=== PATIENT | male | born 1955 | race Caucasian/White ===

== ENCOUNTER 2017-03-30 16:20 | Inpatient (IN) | payer MEDICAID, OTHER ==
[~2017-03-30] VITALS: Ht 167.6 cm; Wt 48.0 kg
[2017-03-30] MEDS ORDERED: HYDROmorphONE 1 MG/ML SYG IV STA (16:59)
[2017-03-30] MEDS ORDERED: ONDANSETRON 4 MG INJ IV STA (16:59)
[2017-03-30] MEDS ORDERED: SOD CHLORIDE 0.9% 1,000 ML IV STA (16:59)
[2017-03-30] MEDS ORDERED: ESCI10TA PO (17:07)
--- NOTE | 2017-03-30 17:33 | RADRPT ---
PROCEDURE: XR Chest. CLINICAL INDICATION: Pain TECHNIQUE: Single frontal chest x-ray. COMPARISON: None. FINDINGS: No acute infiltrate, pleural effusion or pneumothorax is identified. Cardiomediastinal silhouette i s within normal limits. The osseous structures are unremarkable. IMPRESSION: 1. No evidence of acute cardiopulmonary process. RPTAT: QQ .Yony Serrano MD, MD Date Time Electronically viewed and signed by .Yony Serrano MD, on 03/30/2017 17:32 .R/
[2017-03-30 17:36] LABS: ADD SCAN DIFF NO
[2017-03-30 17:38] LABS: ABNORMAL IP MESSAGE 1; HEMATOCRIT 29.6 % (42.0-52.0); HEMOGLOBIN 9.7 g/dl (14.0-18.0); MEAN CORPUSCULAR HGB CONC 32.8 g/dl (32.0-37.0); MEAN CORPUSCULAR VOLUME 88.6 fl (82.0-101.0); MEAN PLATELET VOLUME 9.1 fl (7.4-10.4); PLATELET COUNT 710 10^3/UL (140-415); RED BLOOD COUNT 3.34 10^6/ul (4.70-6.10); RED CELL DISTRIBUTION WIDTH 17.7 % (11.5-14.5)
[2017-03-30 17:55] LABS: INR 1.6; PROTIME 19.2 Sec (12.2-14.2); PT RATIO 1.5
[2017-03-30 18:06] LABS: ALBUMIN 2.7 g/dl (3.3-4.9); ALBUMIN/GLOBULIN RATIO 0.45; ANION GAP 15 (8-16); ASPARTATE AMINO TRANSFERASE 157 IU/L (15-46); BILIRUBIN,INDIRECT 1.2 mg/dl (0-1.1); BILIRUBIN,TOTAL 4.8 mg/dl (0.2-1.3); CARBON DIOXIDE 25 mmol/L (21-31); CHLORIDE 97 mmol/L (97-110); CREATININE 0.74 mg/dl (0.61-1.24); POTASSIUM 4.2 mmol/L (3.5-5.1); SODIUM 133 mmol/L (135-144); TOTAL PROTEIN 8.6 g/dl (6.1-8.1)
[2017-03-30 18:06] LABS: LACTIC ACID 0.9 mmol/L (0.5-2.2)
[2017-03-30 18:08] LABS: ALANINE AMINOTRANSFERASE 137 IU/L (13-69); BLOOD UREA NITROGEN 21 mg/dl (7-20); CALCIUM 9.1 mg/dl (8.4-10.2); GLUCOSE 111 mg/dl (70-220)
[2017-03-30 18:17] LABS: ALKALINE PHOSPHATASE 1569 IU/L (42-121)
[2017-03-30 18:20] LABS: TROPONIN-I < 0.012 ng/ml (0.00-0.12)
[2017-03-30 18:21] LABS: BASOPHIL # 0.2 10^3/ul (0.0-0.1); EOSINOPHILS # 0.4 10^3/ul (0.0-0.5); LYMPHOCYTES # 2.7 10^3/ul (0.8-2.9); MONOCYTE # 2.1 10^3/ul (0.3-0.9); NEUTROPHIL # 15.6 10^3/ul (1.6-7.5); PLATELET ESTIMATE PLT APPEAR INCREASED
[2017-03-30] MEDS ORDERED: CEFTRIAXONE 1 GM/50 ML (PMX) 50 ML IVPB ONE (18:30)
--- NOTE | 2017-03-30 18:45 | ERA ---
ER Documentation Chief Complaint Date/Time DATE: 03/30/17 TIME: 18:39 Chief Complaint FEVER, GENERALIZED WEAKNESS , LOSS OF APPETITE , ABD PAIN H/O CA LIVER HPI 61-year-old man brought in by friend for recent increasing weight loss, anorexia , generalized weakness, intermittent fevers, complaints of severe abdominal pain despite opioid analgesic use. Patient has a long history of primary sclerosing cholangitis and possibly hepatic carcinoma and is status post jejunostomy and jejunal pouch surgery. He states he has had increasing jaundice , denies blood per rectum or melena, no cough, no chest pain or shortness of breath. Patient lives alone. ROS All systems reviewed and are negative except as per history of present illness. Medications Home Meds Reported Medications Escitalopram Oxalate* (Lexapro*) 10 Mg Tablet, 10 MG PO DAILY, #30 TAB 03/30/17 Allergies Allergies: Coded Allergies: No Known Allergy (Unverified , 03/30/17) PMhx/Soc PSC, previous biliary stents and removal, possible hepatic carcinoma, depression FmHx Family History: No diabetes Physical Exam Vitals Vital Signs Date Time Temp Pulse Resp B/P Pulse Ox O2 Delivery O2 Flow Rate FiO2 03/30/17 17:42 60 21 94/66 94 Room Air 03/30/17 17:29 Nasal Cannula 2 03/30/17 16:22 97.9 70 18 91/56 99 Physical Exam GENERAL: Well-developed elderly man, appears dehydrated, afebrile HEENT: Dry mucous membranes, pale conjunctiva, positive jaundice and icterus, no goiter NEURO: Alert and oriented 3, cranial nerves II through XII intact bilaterally, pupils equal round reactive to light, no focal deficits or facial asymmetry, CARDIAC: Bradycardic and regular, no murmurs rubs or gallops LUNGS: Clear bilaterally no wheezing crackles or stridor ABDOMEN: Mild to moderate tenderness to the abdomen diffusely without guarding or rigidity SKIN: Warm and dry to touch, no abrasions, contusions, positive skin tenting EXTREMITIES: No clubbing cyanosis or edema, calves are bilaterally symmetrical, no Homans sign, no popliteal cord sign. Distal pulses equal and bilateral PSYCH: Depressed affect Result Diagram: 03/30/17 1720 03/30/17 1720 Results 24 hrs Laboratory Tests Test 03/30/17 17:00 03/30/17 17:20 Lactic Acid Level 0.9mmol/L Ammonia 11umol/l White Blood Count 21.110^3/ul Red Blood Count 3.3410^6/ul Hemoglobin 9.7g/dl Hematocrit 29.6% Mean Corpuscular Volume 88.6fl Mean Corpuscular Hemoglobin 29.0pg Mean Corpuscular Hemoglobin Concent 32.8g/dl Red Cell Distribution Width 17.7% Platelet Count 95826^3/UL Mean Platelet Volume 9.1fl Neutrophils % 74.0% Lymphocytes % 13.0% Monocytes % 10.0% Eosinophils % 2.0% Basophils % 1.0% Neutrophils # 15.610^3/ul Lymphocytes # 2.710^3/ul Monocytes # 2.110^3/ul Eosinophils # 0.410^3/ul Basophils # 0.210^3/ul Platelet Estimate PLT APPEAR INCREASED Prothrombin Time 19.2Sec Prothrombin Time Ratio 1.5 INR International Normalized Ratio 1.60 Sodium Level 133mmol/L Potassium Level 4.2mmol/L Chloride Level 97mmol/L Carbon Dioxide Level 25mmol/L Anion Gap 15 Blood Urea Nitrogen 21mg/dl Creatinine 0.74mg/dl Glucose Level 111mg/dl Calcium Level 9.1mg/dl Total Bilirubin 4.8mg/dl Direct Bilirubin 3.60mg/dl Indirect Bilirubin 1.2mg/dl Aspartate Amino Transf (AST/SGOT) 157IU/L Alanine Aminotransferase (ALT/SGPT) 137IU/L Alkaline Phosphatase 1569IU/L Troponin I < 0.012ng/ml Total Protein 8.6g/dl Albumin 2.7g/dl Globulin 5.90g/dl Albumin/Globulin Ratio 0.45 Lipase 68U/L Current Medications Medications (Trade) Dose Ordered Sig/Erin Route PRN Reason Start Time Stop Time Status Last Admin Dose Admin Sodium Chloride (NS) 1,000 ml @ 2,000 mls/hr Q30M STAT IV 03/30/17 16:59 03/30/17 17:28 DC 03/30/17 17:25 Hydromorphone HCl (Dilaudid) 1 mg ONCE STAT IV 03/30/17 16:59 03/30/17 17:08 DC 03/30/17 17:24 Ondansetron HCl 4 mg 4 mg ONCE STAT IV 03/30/17 16:59 03/30/17 17:08 DC 03/30/17 17:24 Ceftriaxone Sodium (Rocephin) 50 ml @ 100 mls/hr ONCE ONCE IVPB 03/30/17 18:30 03/30/17 18:59 DC 03/30/17 18:58 Procedures/MDM IV line was established patient was placed on science manager rhythm strip revealed a sinus bradycardia at about 60 bpm. Patient was afebrile and dehydrated. I administered 2 L normal saline intravenously, hydromorphone 1 mg IV for pain and Zofran 4 mg IV. EKG performed, read by me: Sinus bradycardia 59 bpm, normal axis, no acute ST segment changes, narrow QRS complex, with good R-wave progression in precordial leads. One AP view of the chest performed, read by me reveals no acute infiltrates, normal mediastinum, sharp costophrenic and cardiac borders, no air under the diaphragm. Otherwise unremarkable chest x-ray. CBC revealed a leukocytosis of 21 and anemia with a hematocrit of 30, electrolytes revealed dehydration with a BUN/creatinine of 21/0.7, liver function tests were all abnormal (elevated) with an alkaline phosphatase about 1600, INR elevated at 1.6, troponin was negative For continued hypotension I administered 2 more liters of normal saline for a total of 4 L, patient also received ceftriaxone 1 g IV. Critical Care: Time: 37 minutes, this was time separate from other procedures. Treatments/Evaluations: Close monitoring and treatment of unstable vital signs, cardiorespiratory, and neurologic status, while maintaining tight balance of fluid, respiratory, and cardiac interventions. CT scan of the abdomen and pelvis was performed revealing multiple postsurgical changes and biliary duct dilatation. Please refer to radiologist dictation for full report. Patient will be admitted to telemetry setting for continued medical management and GI consultation and further imaging. Hospitalist has been contacted and he will pursue further consultations and imaging Departure Diagnosis: Primary Impression: Primary sclerosing cholangitis Additional Impressions: Weight loss Dehydration Leukocytosis Qualified Code: D72.820 - Lymphocytosis Transaminitis Hyponatremia Intractable pain Hypotension Qualified Code: I95.9 - Hypotension, unspecified hypotension type Condition: Serious TERRY LORENZ MD March 30, 2017 18:45
--- NOTE | 2017-03-30 19:16 | RADRPT ---
PROCEDURE: CT Abdomen and Pelvis without contrast. CLINICAL INDICATION: Abdominal pelvic pain. Primary sclerosing cholangitis. Previous jejunal abdullahi ch construction surgery. Previous biliary stent placement removal. TECHNIQUE: CT scan of the abdomen and pelvis without contrast was performed on a multidetector hig h-resolution CT scanner. The patient was scanned without intravenous contrast. Coronal and sagittal reformatted images were obtained from the axial source images. Images were reviewed on a high-resol [employer] PACS workstation. The total exam CTDI equals 4.67 mGy and the total exam DLP equals 241.78 mGy -cm. Study is limited due to lack of oral and IV contrast. One or more of the following dose reduction techniques were used: - Automated exposure control. - Adjustment of the mA and/or kV according to patient size. - Use of iterative reconstruction technique. COMPARISON: None. FINDINGS: CT abdomen: The lung bases are clear. The heart size is normal, without pericardial thickening or effusion. Th e liver is normal in size and density with abnormal infiltration in the central mid liver resulting in significant intrahepatic biliary dilatation. An obstructive mass lesion including not limited to cholangiocarcinoma should be considered. Further evaluation with MRI is advised with contrast for more complete assessment. The spleen is normal in size and homogeneous in density. The stomach is partially collapsed, but is grossly unremarkable. The pancreas as visualized is normal. The gallbladder is surgically absent. Numerous surgical clips are seen scattered around the right upper quadrant of the abdomen. biliary tree are unremarkable and there is no evidence for biliary dilatation. The adrenal glands are symm etric and normal. The kidneys are symmetrically unremarkable as well. No renal calculus or obstruc tive uropathy or mass lesion is seen. The aorta is of normal caliber. Aortic vascular calcifications are present. There is no retroperit ricardo lymphadenopathy. The randi hepatis region is clear. The bowel and mesentery, as visualized, are limited in evaluation due to lack of oral and IV contrast. Surgical microstaple line is seen inv olving a loop of bowel in the right anterior mid abdomen. CT pelvis: The small bowel loops situated within the pelvis are unremarkable. The pelvic organs are remarkable for enlargement of the prostate gland. The pelvic sidewalls and inguinal regions are clear. The s igmoid colon and rectum are remarkable for a surgical microstaple line of the lower colon with exten sive postsurgical changes. No mass or adenopathy is seen. No free fluid is present. No acute inflam mation is identified at this time. The surrounding osseous structures are remarkable for degenerative spondylosis of the spine. No ost eolytic or osteoblastic lesion is detected. IMPRESSION: 1. Extensive postsurgical changes involving the bowel loops throughout the abdominal pelvic cavity including the right upper quadrant small bowel, and the distal sigmoid colon and rectum. 2. Significant intrahepatic biliary dilatation with increased density in the central periportal reg ion of the liver. Underlying infiltrative mass lesion should be considered. Further evaluation wit h liver MRI with contrast is recommended for more complete assessment. 3. Scattered benign chronic changes seen elsewhere throughout the study, as detailed above. Results discussed with Dr. Pang in the ER at 7:13 p.m. on 03/30/2017. RPTAT: HMJB .Jelani Yang MD, Date Time Electronically viewed and signed by .Jelani Yang MD, on 03/30/2017 19:15 .B/
[2017-03-30] MEDS ORDERED: ACETAMINOPHEN 325 MG TAB PO PRN (19:30)
[2017-03-30] MEDS ORDERED: DOCUSATE SODIUM 100 MG CAP PO PRN (19:30)
[2017-03-30] MEDS ORDERED: NACL 0.9% 3 ML SYG IV SCH (19:30)
[2017-03-30] MEDS ORDERED: ONDANSETRON 4 MG INJ IV PRN (19:30)
[2017-03-30] MEDS ORDERED: NA PHOSPHATE/BIPHOS 133 ML ENEMA PR PRN (19:30)
[2017-03-30] MEDS ORDERED: morphine 2 MG INJ IV PRN (19:30)
[2017-03-30] MEDS ORDERED: LORAZEPAM 2 MG INJ IV PRN (19:30)
[2017-03-30] MEDS ORDERED: hydrALAzine 20 MG INJ IV PRN (19:30)
[2017-03-30] MEDS ORDERED: HYDROCODONE/APAP (5/325) TAB PO PRN (19:30)
[2017-03-30] MEDS ORDERED: ALBUTEROL/IPRATROPIUM (NEB) 3 ML AMP HHN PRN (19:30)
[2017-03-30] MEDS ORDERED: NITROGLYCERIN (SL) 0.4 MG TAB SL PRN (19:30)
[2017-03-30] MEDS ORDERED: SOD CHLORIDE 0.9% 1,000 ML IV ONE (19:30)
[2017-03-30] MEDS ORDERED: MAGNESIUM HYDROXIDE 30ML CUP PO PRN (19:30)
[2017-03-30] MEDS ORDERED: VANCOMYCIN IV PER PHARMACY XX SCH (19:30)
[2017-03-30 20:58] VITALS: BP 95/55; RESP 18
[2017-03-30 21:57] VITALS: Ht 167.6 cm; Wt 48.0 kg
[2017-03-30] MEDS: SOD CHLORIDE 0.9% 1,000 ML IV SCH (21:57)
[2017-03-30] MEDS ORDERED: VANCOMYCIN 1 GM in NS 250 ML IVPB SCH (22:00)
[2017-03-31] MEDS: PIPER-TAZO 3.375 GM IV (PMX) 100 ML IVPB SCH ×4 (00:44→18:18)
[2017-03-31] MEDS: PANTOPRAZOLE 40 MG INJ IV SCH (06:23)
[2017-03-31] MEDS: SOD CHLORIDE 0.9% 1,000 ML IV SCH ×3 (06:24→22:16)
[2017-03-31 06:41] LABS: THYROID STIMULATING HORMONE 0.674 MIU/L (0.465-4.680)
[2017-03-31 07:20] LABS: ADD SCAN DIFF NO
[2017-03-31 07:22] LABS: ABNORMAL IP MESSAGE 1; HEMATOCRIT 27.9 % (42.0-52.0); HEMOGLOBIN 9.2 g/dl (14.0-18.0); MEAN CORPUSCULAR HEMOGLOBIN 29.5 pg (29.0-33.0); MEAN CORPUSCULAR VOLUME 89.4 fl (82.0-101.0); MEAN PLATELET VOLUME 9.1 fl (7.4-10.4); PLATELET COUNT 745 10^3/UL (140-415); RED BLOOD COUNT 3.12 10^6/ul (4.70-6.10); RED CELL DISTRIBUTION WIDTH 17.7 % (11.5-14.5); WHITE BLOOD COUNT 20.7 10^3/ul (4.8-10.8)
[2017-03-31 07:28] LABS: POTASSIUM 3.6 mmol/L (3.5-5.1)
[2017-03-31 07:31] LABS: CREATININE 0.64 mg/dl (0.61-1.24)
[2017-03-31 07:32] LABS: CALCIUM 8.5 mg/dl (8.4-10.2); MAGNESIUM 1.9 mg/dl (1.7-2.5); PHOSPHORUS 3.8 mg/dl (2.5-4.9)
[2017-03-31] MEDS: ESCITALOPRAM 10 MG TAB PO SCH (09:23)
--- NOTE | 2017-03-31 09:55 | HP ---
Date/Time of Note Date/Time of Note DATE: 03/31/17 TIME: 09:32 Assessment/Plan VTE Prophylaxis VTE Prophylaxis Intervention: SCD's Lines/Catheters IV Catheter Type (from [facility]): Peripheral IV Urinary Cath still in place: No Assessment/Plan Assessment/Plan IMPRESSION 1. Debility 2. Hx of PSC s/p surgery 3. Hx of stage IV Lymphoma 4. Liver mass 5. Abnormal LFTs 6. Leukocytosis 7. Anemia, likely 2/2 chronic disease 8. Jaundice PLAN - Obtain abd MRI to further eval liver mass seen on CT - Pain mgmt - dietary consult - physical therapy - empiric abx. will f/u culture results - Day time team to consult Heme/Onc and also GI given biliary dilatation is jaundice - monitor h/h and transfuse as needed. will check iron panel and ferritin. HPI/ROS Admit Date/Time Admit Date/Time March 30, 2017 at 18:53 Hx of Present Illness Patient is a 61 yo male with hx of PSC, stage IV lymphoma who presented to ER c/ o generalized weakness, weight loss, decreased appetite and pain. He has had abd surgery jejunostomy and jejunal pouch surgery at outside hospital. He was discharged with home health and said currently he lives with his ex-. He was really emotional when talking about his symptoms saying that sometimes he wishes he never wakes up from his sleep at all. His main concern is lack of energy and pain. When he presented to ER, CTa/p showed Extensive postsurgical changes involving the bowel loops throughout the abdominal pelvic cavity including the right upper quadrant small bowel, and the distal sigmoid colon and rectum. Significant intrahepatic biliary dilatation with increased density in the central periportal region of the liver. Per radiology, underlying infiltrative mass lesion should be considered. . PMH/Family/Social Social History Smoking Status: Never smoker Exam/Review of Systems Vital Signs Vitals Vital Signs Date Time Temp Pulse Resp B/P Pulse Ox O2 Delivery O2 Flow Rate FiO2 03/30/17 20:58 97.4 65 18 95/55 99 03/30/17 17:42 Room Air 03/30/17 17:29 2 Intake and Output 03/30/17 03/30/17 03/31/17 15:00 23:00 07:00 Intake Total 1000 ml 350 ml Balance 1000 ml 350 ml Exam Constitutional: other (weak and frail appearing. Jaundiced) Head: atraumatic, normocephalic Eyes: icteric Respiratory: clear to auscultation Cardiovascular: nl pulses, regular rate and rhythm Gastrointestinal: other (right sided surgical scar with no sign of infection), soft, tender Skin: other (jaundiced) Labs Result Diagram: 03/31/17 0500 03/31/17 0500 Medications Medications Current Medications Ondansetron HCl (Zofran Inj) 4 mg Q6H PRN IV NAUSEA AND/OR VOMITING; Start at 19:30 Acetaminophen (Tylenol Tab) 650 mg Q6H PRN PO PAIN LEVEL 1-3 OR FEVER; Start at 19:30 Acetaminophen/ Hydrocodone Bitart ([place] (5/325)) 1 tab Q6H PRN PO MODERATE PAIN LEVEL 4-6; Start 03/30/17 at 19:30 Morphine Sulfate (morphine) 2 mg Q4H PRN IV SEVERE PAIN LEVEL 7-10 Last administered on 03/31/17 09:24; Admin Dose 2 MG; Start 03/30/17 at 19:30 Docusate Sodium (Colace) 100 mg Q12H PRN PO CONSTIPATION; Start 03/30/17 at 19: 30 Magnesium Hydroxide (Milk Of Mag) 30 ml DAILY PRN PO CONSTIPATION; Start at 19:30 Sodium Biphosphate/ Sodium Phosphate (Fleet Enema) 133 ml DAILY PRN PA CONSTIPATION; Start 03/30/17 at 19:30 Pantoprazole (Protonix Iv) 40 mg DAILY@06 IV Last administered on 03/31/17 06: 23; Admin Dose 40 MG; Start 03/31/17 at 06:00 Lorazepam 0.5 mg 0.5 mg Q6H PRN IV ANXIETY; Start 03/30/17 at 19:30 Sodium Chloride 1,000 ml @ 100 mls/hr Q10H IV Last administered on 03/31/17 06:24; Admin Dose 100 MLS/HR; Start 03/30/17 at 19:27 Piperacillin Sod/ Tazobactam Sod (Zosyn 3.375gm/ 100 ml (Pmx)) 100 ml @ 200 mls /hr Q6 IVPB Last administered on 03/31/17 06:24; Admin Dose 200 MLS/HR; Start 03/31/17 at 00:00 Vancomycin HCl (Vanco Iv Per Pharmacy) VANCOMYCIN PER PHARMACY NOTE XX ; Start 03/30/17 at 19:30 Hydralazine HCl (Apresoline) 10 mg Q6H PRN IV ELEVATED BLOOD PRESSURE; Start at 19:30 Nitroglycerin (Nitroglycerin (Sl Tab) 0.4 Mg) 1 tab Q5M PRN SL ANGINA; Start at 19:30 Escitalopram Oxalate 10 mg 10 mg DAILY PO Last administered on 03/31/17t 09:23 ; Admin Dose 10 MG; Start 03/31/17 at 09:00 Vancomycin HCl/ Sodium Chloride (Vancocin/NS) 150 ml @ 75 mls/hr Q12H IVPB ; Start 03/31/17 at 11:00 Miscellaneous Information (*Rx Drug Level Order Reminder*) VANCOMYCIN TROUGH AT 1000 ONCE ONCE XX ; Start 04/01/17 at 10:00; Stop 04/01/17 at 10:01 RENAE PRUITT MD March 31, 2017 09:55
--- NOTE | 2017-03-31 09:55 | CONS ---
Date/Time of Note Date/Time of Note DATE: 03/31/17 TIME: 09:53 Assessment/Plan Assessment/Plan Additional Assessment/Plan Transaminitis Evaluate if 2/2 to cholangiocarcinoma vs other etiology Review MRCP Review CEA, CA 19-9, AFP Trend LFTs Status post Bile duct excision with cholecystectomy, excision of extrahepatic common bile duct, and Isabell-en-Y hepaticojejunostomy Recommend surgery consult Weight loss Management per Primary May benefit from nutrition consult History of cholangiocarcinoma Heme/Onc consult in process Status post Bile duct excision with cholecystectomy, excision of extrahepatic common bile duct, and Isabell-en-Y hepaticojejunostomy. Diffuse body pain Palliative consult in process History of ulcerative colitis Status post proctocolectomy with J-pouch creation 2005 Further recommendations depend on clinical course Patient seen in collaboration with Dr. Batres Consultation Date/Type/Reason Admit Date/Time March 30, 2017 at 18:53 Mr. Raad Mancera is a 61-year-old man that was brought to the hospital secondary to increasing weakness, jaundice, and diffuse body pain. Patient has extensive past medical history and noted below. Patient denies nausea, vomiting , fever, chills, diarrhea, and hematochezia. Recommending surgical consult, oncology consult, and palliative consult to further address patient's current medical problems. MRCP and cancer markers will be ordered to further evaluate worsening jaundice and LFTs. PMH: H/o Ulcerative colitis who failed medical management status post total proctocolectomy with J-pouch creation 2005. Patient also has history of primary sclerosing cholangitis and had a ERCP with stent placed and was later discovered to have cholangiocarcinoma. Patient is status post ERCP with CBD stent placement, EGD, EUS and flexible sigmoidoscopy with jejunal pouch biopsy negative for dysplasia or malignancy but notable for focally active pouchitis. On January 24, 2017 patient underwent bile duct excision with cholecystectomy, excision of extrahepatic common bile duct, and Isabell-en-Y hepaticojejunostomy. LABS AFP -1.8 -January 14, 2017 (0.0 -9.0) CA 19-9 - 272.9 -January 14, 2017 (0.0 -35.0) CEA - 1.6 -January 14 2017 (0.02 - 3.0) JAK2 V617F mutation - not detected -January 14, 2017 AST - 79 - February 08, 2017 ALT - 34 - February 08, 2017 ALP - 424 -February 08, 2017 PROCEDURES AND SURGERIES Choledochojejunostomy -January 24, 2017 Bile duct excision with cholecystectomy, excision of extrahepatic common bile duct, and Isabell-en-Y hepaticojejunostomy. 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 Metastatic carcinoma identified in 1 out of 8 lymph node sample. Low-grade dysplasia and common bile duct and cystic duct. No definitive vascular invasion. Extensive perineural invasion is identified. Adenocarcinoma diffusely involving gallbladder, the largest lesion measuring 1.5 cm in greatest dimension ERCP -January 16, 2017: Proximal CBD mass measuring 22 mm x 18 mm with biliary dilation above mass. 10 Swedish 10 cm plastic CBD stent was placed trans- papillary across the lesion. Large amount of bile duct sludge removed with balloon sweeps. Cholelithiasis Endoscopic abdominal ultrasound -January 16, 2017 Sigmoidoscopy -January 16, 2017: Moderate pouchitis. Negative for dysplasia or malignancy ERCP - October 01, 2014 ERCP - February 26, 2014 Social History Smoking Status: Never smoker Exam/Review of Systems Vital Signs Vitals Vital Signs Date Time Temp Pulse Resp B/P Pulse Ox O2 Delivery O2 Flow Rate FiO2 03/30/17 20:58 97.4 65 18 95/55 99 03/30/17 17:42 Room Air 03/30/17 17:29 2 Intake and Output 03/30/17 03/30/17 03/31/17 15:00 23:00 07:00 Intake Total 1000 ml 350 ml Balance 1000 ml 350 ml Exam Constitutional: alert, oriented, very thin, slightly tired, jaundice Psych: nl mood/affect Head: normocephalic Eyes: EOMI, sclera anicteric, nl lids ENMT: nl external ears & nose, nl lips & teeth, nl nasal mucosa & septum Respiratory: clear to auscultation, normal air movement Cardiovascular: regular rate and rhythm Gastrointestinal: soft, diffuse abdominal tenderness Musculoskeletal: nl extremities to inspection Neurological: 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 JAVA SOFTWARE 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 II-XII intact Results Result Diagram: 03/31/17 0500 03/31/17 0500 Results 24 hrs Laboratory Tests Test 03/30/17 17:00 03/30/17 17:20 03/30/17 19:45 03/31/17 05:00 Lactic Acid Level 0.9 Ammonia 11 White Blood Count 21.1 H 20.7 H Red Blood Count 3.34 L 3.12 L Hemoglobin 9.7 L 9.2 L Hematocrit 29.6 L 27.9 L Mean Corpuscular Volume 88.6 89.4 Mean Corpuscular Hemoglobin 29.0 29.5 Mean Corpuscular Hemoglobin Concent 32.8 33.0 Red Cell Distribution Width 17.7 H 17.7 H Platelet Count 710 H 745 H Mean Platelet Volume 9.1 9.1 Neutrophils % 74.0 Lymphocytes % 13.0 L Monocytes % 10.0 Eosinophils % 2.0 Basophils % 1.0 Neutrophils # 15.6 H Lymphocytes # 2.7 Monocytes # 2.1 H Eosinophils # 0.4 Basophils # 0.2 H Platelet Estimate PLT APPEAR INCREASED Prothrombin Time 19.2 H Prothrombin Time Ratio 1.5 INR International Normalized Ratio 1.60 Sodium Level 133 L 138 Potassium Level 4.2 3.6 Chloride Level 97 105 Carbon Dioxide Level 25 21 Anion Gap 15 16 Blood Urea Nitrogen 21 H 13 Creatinine 0.74 0.64 Glucose Level 111 84 Calcium Level 9.1 8.5 Total Bilirubin 4.8 H Direct Bilirubin 3.60 H Indirect Bilirubin 1.2 H Aspartate Amino Transf (AST/SGOT) 157 H Alanine Aminotransferase (ALT/SGPT) 137 H Alkaline Phosphatase 1569 H Troponin I < 0.012 Total Protein 8.6 H Albumin 2.7 L Globulin 5.90 H Albumin/Globulin Ratio 0.45 Lipase 68 Free Thyroxine 1.41 Hemoglobin A1c 5.0 Phosphorus Level 3.8 Magnesium Level 1.9 Triglycerides Level 123 Cholesterol Level 216 H LDL Cholesterol, Calculated 164 HDL Cholesterol 27 L Cholesterol/HDL Ratio 8.0 Thyroid Stimulating Hormone (TSH) 0.674 Medications Medications Current Medications Ondansetron HCl (Zofran Inj) 4 mg Q6H PRN IV NAUSEA AND/OR VOMITING; Start at 19:30 Acetaminophen (Tylenol Tab) 650 mg Q6H PRN PO PAIN LEVEL 1-3 OR FEVER; Start at 19:30 Acetaminophen/ Hydrocodone Bitart ([place] (5/325)) 1 tab Q6H PRN PO MODERATE PAIN LEVEL 4-6; Start 03/30/17 at 19:30 Morphine Sulfate (morphine) 2 mg Q4H PRN IV SEVERE PAIN LEVEL 7-10 Last administered on 5/14/17at 09:24; Admin Dose 2 MG; Start 03/30/17 at 19:30 Docusate Sodium (Colace) 100 mg Q12H PRN PO CONSTIPATION; Start 03/30/17 at 19: 30 Magnesium Hydroxide (Milk Of Mag) 30 ml DAILY PRN PO CONSTIPATION; Start at 19:30 Sodium Biphosphate/ Sodium Phosphate (Fleet Enema) [address] CONSTIPATION; Start 03/30/17 at 19:30 Pantoprazole (Protonix Iv) 40 mg DAILY@06 IV Last administered on 03/31/17 06: 23; Admin Dose 40 MG; Start 03/31/17 at 06:00 Lorazepam 0.5 mg 0.5 mg Q6H PRN IV ANXIETY; Start 03/30/17 at 19:30 Sodium Chloride 1,000 ml @ 100 mls/hr Q10H IV Last administered on 03/31/17 06:24; Admin Dose 100 MLS/HR; Start 03/30/17 at 19:27 Piperacillin Sod/ Tazobactam Sod (Zosyn 3.375gm/ 100 ml (Pmx)) 100 ml @ 200 mls /hr Q6 IVPB Last administered on 03/31/17 06:24; Admin Dose 200 MLS/HR; Start 03/31/17 at 00:00 Vancomycin HCl (Vanco Iv Per Pharmacy) VANCOMYCIN PER PHARMACY NOTE XX ; Start 03/30/17 at 19:30 Hydralazine HCl (Apresoline) 10 mg Q6H PRN IV ELEVATED BLOOD PRESSURE; Start at 19:30 Nitroglycerin (Nitroglycerin (Sl Tab) 0.4 Mg) 1 tab Q5M PRN SL ANGINA; Start at 19:30 Escitalopram Oxalate 10 mg 10 mg DAILY PO Last administered on 03/31/17 09:23 ; Admin Dose 10 MG; Start 03/31/17 at 09:00 Vancomycin HCl/ Sodium Chloride (Vancocin/NS) 150 ml @ 75 mls/hr Q12H IVPB ; Start 03/31/17 at 11:00 Miscellaneous Information (*Rx Drug Level Order Reminder*) VANCOMYCIN TROUGH AT 1000 ONCE ONCE XX ; Start 04/01/17 at 10:00; Stop 04/01/17 at 10:01 ADAM ARTIS March 31, 2017 09:55
[2017-03-31] MEDS: VANCOMYCIN 750 MG in SOD CHLORIDE 0.9% 150 ML IVPB SCH ×2 (12:12→23:05)
--- NOTE | 2017-03-31 12:48 | PN ---
Date/Time of Note Date/Time of Note DATE: 03/31/17 TIME: 12:41 Assessment/Plan VTE Prophylaxis VTE Prophylaxis Intervention: contraindicated (Procedure bleeding risk) Lines/Catheters IV Catheter Type (from [facility]): Peripheral IV Urinary Cath still in place: No Assessment/Plan Chief Complaint/Hosp Course Subjective: No ivette pain. Positive jaundice. No fever, dyspnea. Poor appetite. Patient and family updated at bedside. Objective: Vital signs stable PE No pallor adenopathy. +icterus Reg, no m/r/g CTAB Bs +nt nd no r/r/g. Scaphoid. Scars c/d/i No edema LABS AFP -1.8 -January 14, 2017 (0.0 -9.0) CA 19-9 - 272.9 -January 14, 2017 (0.0 -35.0) CEA - 1.6 -January 14 2017 (0.02 - 3.0) JAK2 V617F mutation - not detected -January 14, 2017 AST - 79 - February 08, 2017 ALT - 34 - February 08, 2017 ALP - 424 -February 08, 2017 PROCEDURES AND SURGERIES Choledochojejunostomy -January 24, 2017 Bile duct excision with cholecystectomy, excision of extrahepatic common bile duct, and Isabell-en-Y hepaticojejunostomy. 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 Metastatic carcinoma identified in 1 out of 8 lymph node sample. Low-grade dysplasia and common bile duct and cystic duct. No definitive vascular invasion. Extensive perineural invasion is identified. Adenocarcinoma diffusely involving gallbladder, the largest lesion measuring 1.5 cm in greatest dimension ERCP -January 16, 2017: Proximal CBD mass measuring 22 mm x 18 mm with biliary dilation above mass. 10 Belgian 10 cm plastic CBD stent was placed trans- papillary across the lesion. Large amount of bile duct sludge removed with balloon sweeps. Cholelithiasis Endoscopic abdominal ultrasound -January 16, 2017 Sigmoidoscopy -January 16, 2017: Moderate pouchitis. Negative for dysplasia or malignancy ERCP - October 01, 2014 ERCP - February 26, 2014 A/P 1. Obstructive jaundice. Stable, ro stricture/recurrent tumor. MRCP/GI eval, may need hepatobiliary surgery. 2. 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 3. Chronic Crohn's diseasestatus post total proctocolectomy with J-pouch creation 2005. 4. Chronic primary sclerosing cholangitis w cholangiocarcinoma. Needs advanced care planning evaluated. Poor prognosis. Performance status questionable at this time for chemotherapy & bilirubin needs some improvement. 5. Malnutrition; oral feeds/Megace vs TPN 6. Active pouchitis? 7. Postop day 16 bd excision w cholecystectomy, excision of extrahepatic cbd and Isabell-en-Y hepaticojejunostomy. 8. Failure to thrive, may need snf 9. Anemia 10. Reactive thrombocytosis 11. Dyslipidemia. Problems: Exam/Review of Systems Vital Signs Vitals Vital Signs Date Time Temp Pulse Resp B/P Pulse Ox O2 Delivery O2 Flow Rate FiO2 03/30/17 20:58 97.4 65 18 95/55 99 03/30/17 17:42 Room Air 03/30/17 17:29 2 Intake and Output 03/30/17 03/30/17 03/31/17 15:00 23:00 07:00 Intake Total 1000 ml 350 ml Balance 1000 ml 350 ml Results Result Diagram: 03/31/17 0500 03/31/17 0500 Results 24 hrs Laboratory Tests Test 03/30/17 17:00 03/30/17 17:20 03/30/17 19:45 03/31/17 05:00 Lactic Acid Level 0.9 Ammonia 11 White Blood Count 21.1 H 20.7 H Red Blood Count 3.34 L 3.12 L Hemoglobin 9.7 L 9.2 L Hematocrit 29.6 L 27.9 L Mean Corpuscular Volume 88.6 89.4 Mean Corpuscular Hemoglobin 29.0 29.5 Mean Corpuscular Hemoglobin Concent 32.8 33.0 Red Cell Distribution Width 17.7 H 17.7 H Platelet Count 710 H 745 H Mean Platelet Volume 9.1 9.1 Neutrophils % 74.0 Lymphocytes % 13.0 L Monocytes % 10.0 Eosinophils % 2.0 Basophils % 1.0 Neutrophils # 15.6 H Lymphocytes # 2.7 Monocytes # 2.1 H Eosinophils # 0.4 Basophils # 0.2 H Platelet Estimate PLT APPEAR INCREASED Prothrombin Time 19.2 H Prothrombin Time Ratio 1.5 INR International Normalized Ratio 1.60 Sodium Level 133 L 138 Potassium Level 4.2 3.6 Chloride Level 97 105 Carbon Dioxide Level 25 21 Anion Gap 15 16 Blood Urea Nitrogen 21 H 13 Creatinine 0.74 0.64 Glucose Level 111 84 Calcium Level 9.1 8.5 Total Bilirubin 4.8 H Direct Bilirubin 3.60 H Indirect Bilirubin 1.2 H Aspartate Amino Transf (AST/SGOT) 157 H Alanine Aminotransferase (ALT/SGPT) 137 H Alkaline Phosphatase 1569 H Troponin I < 0.012 Total Protein 8.6 H Albumin 2.7 L Globulin 5.90 H Albumin/Globulin Ratio 0.45 Lipase 68 Free Thyroxine 1.41 Differential Comment AUTO w/SCAN Hemoglobin A1c 5.0 Phosphorus Level 3.8 Magnesium Level 1.9 Triglycerides Level 123 Cholesterol Level 216 H LDL Cholesterol, Calculated 164 HDL Cholesterol 27 L Cholesterol/HDL Ratio 8.0 Thyroid Stimulating Hormone (TSH) 0.674 Medications Medications Current Medications Ondansetron HCl (Zofran Inj) 4 mg Q6H PRN IV NAUSEA AND/OR VOMITING; Start at 19:30 Acetaminophen (Tylenol Tab) 650 mg Q6H PRN PO PAIN LEVEL 1-3 OR FEVER; Start at 19:30 Acetaminophen/ Hydrocodone Bitart ([place] (5/325)) 1 tab Q6H PRN PO MODERATE PAIN LEVEL 4-6; Start 03/30/17 at 19:30 Morphine Sulfate (morphine) 2 mg Q4H PRN IV SEVERE PAIN LEVEL 7-10 Last administered on 03/31/17 09:24; Admin Dose 2 MG; Start 03/30/17 at 19:30 Docusate Sodium (Colace) 100 mg Q12H PRN PO CONSTIPATION; Start 03/30/17 at 19: 30 Magnesium Hydroxide (Milk Of Mag) 30 ml DAILY PRN PO CONSTIPATION; Start at 19:30 Sodium Biphosphate/ Sodium Phosphate (Fleet Enema) 133 ml DAILY PRN [place] CONSTIPATION; Start 03/30/17 at 19:30 Pantoprazole (Protonix Iv) 40 mg DAILY@06 IV Last administered on 03/31/17 06: 23; Admin Dose 40 MG; Start 03/31/17 at 06:00 Lorazepam 0.5 mg 0.5 mg Q6H PRN IV ANXIETY; Start 03/30/17 at 19:30 Sodium Chloride 1,000 ml @ 100 mls/hr Q10H IV Last administered on 03/31/17 06:24; Admin Dose 100 MLS/HR; Start 03/30/17 at 19:27 Piperacillin Sod/ Tazobactam Sod (Zosyn 3.375gm/ 100 ml (Pmx)) 100 ml @ 200 mls /hr Q6 IVPB Last administered on 03/31/17 11:05; Admin Dose 200 MLS/HR; Start 03/31/17 at 00:00 Vancomycin HCl (Vanco Iv Per Pharmacy) VANCOMYCIN PER PHARMACY NOTE XX ; Start 03/30/17 at 19:30 Hydralazine HCl (Apresoline) 10 mg Q6H PRN IV ELEVATED BLOOD PRESSURE; Start at 19:30 Nitroglycerin (Nitroglycerin (Sl Tab) 0.4 Mg) 1 tab Q5M PRN SL ANGINA; Start at 19:30 Escitalopram Oxalate 10 mg 10 mg DAILY PO Last administered on 03/31/17 09:23 ; Admin Dose 10 MG; Start 03/31/17 at 09:00 Vancomycin HCl/ Sodium Chloride (Vancocin/NS) 150 ml @ 75 mls/hr Q12H IVPB Last administered on 03/31/17 12:12; Admin Dose 75 MLS/HR; Start 03/31/17 at 11 :00 Miscellaneous Information (*Rx Drug Level Order Reminder*) VANCOMYCIN TROUGH AT 1000 ONCE ONCE XX ; Start 04/01/17 at 10:00; Stop 04/01/17 at 10:01 HUMZA JAIME MD March 31, 2017 12:48
[2017-03-31 12:49] LABS: CANCER ANTIGEN 125 54.8 U/ml (0.0-35.0)
[2017-03-31] MEDS ORDERED: HYDROmorphONE 1 MG/ML SYG IM STA (13:20)
[2017-03-31] MEDS ORDERED: HYDROmorphONE 1 MG/ML SYG IV STA (13:23)
[2017-03-31] MEDS ORDERED: [UNRECOGNIZED DRUG - OTHER] PO (14:33)
[2017-03-31] MEDS ORDERED: [UNRECOGNIZED DRUG - OTHER] PO (14:35)
[2017-03-31] MEDS ORDERED: [UNRECOGNIZED DRUG - OTHER] PO (14:35)
[2017-03-31] MEDS ORDERED: [UNRECOGNIZED DRUG - OTHER] PO (14:35)
[2017-03-31] MEDS: HYDROmorphONE 0.2 MG/ML PCA IV SCH (15:09)
[2017-03-31] MEDS: METHYLPREDNISOLONE 125 MG INJ IV SCH ×2 (15:17→22:16)
--- NOTE | 2017-03-31 16:41 | RADRPT ---
PROCEDURE: MRI abdomen without contrast CLINICAL INDICATION: Suspected liver lesion TECHNIQUE: An MRI of the abdomen was performed utilizing a high field MRI scanner with the following pulsed seq uences: Axial T2 fast spin-echo, axial T2 non-fat saturation fast spin-echo, axial T1 gradient echo in-phase and opposed-phase. Noncontrast fat sat T1-weighted images were also obtained. Coronal T2 and fat-saturated T2-weighted images were also obtained. Diffusion-weighted images and ADC maps were also obtained. COMPARISON: CT 03/30/2017 FINDINGS: Lack of IV contrast limits evaluation for enhancing masses. There is diffuse prominent intrahepatic biliary ductal dilatation with loss of visibility of the rayshawn iary ductal system centrally within the liver where there is a lobular area of elevated T2 signal me asuring approximately 4.8 x 3.5 cm most likely an obstructing mass. There is prominent enlarged birdie earance of the liver as well with a somewhat nodular contour. The spleen is mildly enlarged. There is mild intra-abdominal ascites seen with fat stranding of the mesentery. Extensive surgical changes are seen within the right upper quadrant and fine detail of the bowel is limited by MRI. The gallbladder is absent and surgically removed. There is flow void seen within t he portal vein and splenic vein without evidence of thrombus. Upper abdominal varices are present. The adrenal glands and kidneys are symmetric without evidence of mass and there is no evidence of hy dronephrosis. There is uniform signal intensity of the pancreatic parenchyma without evidence of focal lesion or p ancreatic ductal dilatation. No surrounding gross inflammatory changes are present. There is no ev idence of bowel obstruction. No gross enlarged lymph nodes are present. There is aortic tortuosity and atherosclerosis. Degenerative changes seen within the lumbar spine. RPTAT: AA IMPRESSION: There is a lobular area of elevated T2 signal is seen in the central liver worrisome for a mass pos sibly cholangiocarcinoma and this causes prominent intrahepatic biliary ductal dilatation of both th e left and right intrahepatic biliary ducts with central loss of signal at the area of the mass. Prominent hepatomegaly is seen with findings suggestive for portal hypertension. Mild ascites is seen. Surgical changes are seen of the bowel with no evidence of an obstruction. There is a fecal filled colon. Atherosclerotic disease. RPTAT: AA .Vee Jarvis MD, MD Date Time Electronically viewed and signed by .Vee Jarvis MD, MD on 03/31/2017 16:40 .J/
--- NOTE | 2017-03-31 17:21 | RADRPT ---
Echocardiogram Report Patient Name: MARISOL CONNORS Gender: Male Date: 1955 Study Date: 31-Mar-2017 Jammer Operator: GRAY Location: E Ref. Physician: ORION GUILLEN Quality: Technically Difficult Study Procedures: Transthoracic echocardiogram with 2D, M-Mode, and Doppler examination. Indications: Chest Pain. 2D/M Mode Doppler Measurement Value Normal Ranges Measurement Value Normal Ranges AoR Diam MM 3.7 cm AV Peak Shady 1.6 m/sec ACS MM 1.9 cm AV Peak PG 9.7 mmHg LVIDd 2D 4.0 3.5 - 5.6 cm LVOT Peak Shady 1.1 m/sec LVIDs 2D 2.6 2.1 - 4.1 cm LVOT Peak PG 4.5 mmHg LVPWd 2D 1.0 0.6 - 1.1 cm MV E Peak Shady 0.8 m/sec IVSd 2D 0.9 0.6 - 1.1 cm MV A Peak Shady 0.3 m/sec EDV 2D 68.2 cm3 MV E/A 2.6 ESV 2D 18.0 cm3 MV Decel Time 183 msec LA Dimen 2D 3.2 2.3 - 4.0 cm MV Decel Liberty 4 MV E/A 2.6 TR Peak Shady 1.9 m/sec TR Peak PG 14.7 mmHg RVSP 17.7 mmHg Findings Left Ventricle: Normal left ventricular systolic function. Normal left ventricular cavity size. Normal left ventricular wall thickness. Ejection fraction is visually estimated at 60 %. Tissue Doppler/Mitral Doppler indices are within normal limits. Right Ventricle: Normal right ventricular size. Normal right ventricular systolic function. Left Atrium: The left atrium is normal in size. Right Atrium: The right atrium is normal in size. Atrial Septum: Normal atrial septum. Mitral Valve: Normal appearance of the mitral valve. No mitral valve regurgitation is seen. Aortic Valve: Normal appearance of the aortic valve. No hemodynamically significant aortic stenosis by doppler. Trace to mild aortic valve regurgitation. Tricuspid Valve: Normal appearance and function of the tricuspid valve with trace physiologic regurgitation. Estimated peak PA systolic pressure 18 mmHg. Pulmonic Valve: Pulmonic valve not well visualized. Pericardium: Normal pericardium with no significant pericardial effusion. Aorta: Normal aortic root. IVC: Normal size and normal respiratory collapse consistent with normal right atrial pressure. Pulmonary Artery: Not well visualized. Conclusions 1.Normal left ventricular systolic function. Normal left ventricular cavity size. Normal left ventricular wall thickness. Ejection fraction is visually estimated at 60 %. Tissue Doppler/Mitral Doppler indices are within normal limits. 2.Trace to mild aortic valve regurgitation. 3.Estimated peak PA systolic pressure 18 mmHg based on RA pressure of 3 mmHg. Electronically Signed By: Nate Luu 31-Mar-2017 17:20:16 -0700 Patient Name: MARISOL CONNORS Study Date: 31-Mar-2017 [id number]
--- NOTE | 2017-03-31 18:08 | CONS ---
DATE OF ADMISSION: 03/30/2017 DATE OF CONSULTATION: 03/31/2017 PAIN MANAGEMENT CONSULTATION HISTORY OF PRESENT ILLNESS: A 61-year-old gentleman who was admitted to [facility] with de hydration and pain out of control. He has a past medical history of primary sclerosing cholangitis also stays for lymphoma, the workup and the staging and the treatment for stage IV lymphoma is unava ilable at this time. His primary care team are located at another hospital. Records are to be obtain ed. He complains of increasing abdominal discomfort for approximately a week prior to his presentat ion. The patient states pain is located in his left shoulder, bilateral ribs, abdomen and lower spin e. He states that the pain is a gnawing type of discomfort. It is not an electric shock-type pain. It is not associated with nausea, vomiting, cough or productive sputum. He states that his pain pe aks and troughs are continued and there is no alleviation with the current pain control medication, which is tramadol as needed p.r.n. at home. He has only taken one dose but states that it is worthle ss and caused significant side effects. He states that he is not taking any other pain medication at home at this time. He is a nonsmoker, he is a nondrinker and he is naive to any strong pain medicat ions prior to his hospitalization. He states his pain has increased in severity when he moves aroun d in bed. He describes that his stream and out of control. He is still complaining of accelerated pain once again in the above listed areas. He has no relief with current pain control, medications prior to hospitalization per patient. His pain is significantly clinical on examination, it interfer es with his physical functioning where he cannot do any activities on his own and essentially not be dridden, but unable to do any activities secondary to increase in discomfort. He has good social scott pport. His mood is labile and emotional at this point. Overall function is extremely poor. Once a gain no nausea, vomiting. He has a pouch and he leaks liquid stool from his rectum. He denies itch ing, mental cloudiness, sweating, fatigue as above, drowsy as above. There is no history of overdos ing on pain medications in the past or purposeful over sedation of pain medication. Mood is as above . No history of loss of pain medications prior to this hospitalization including tramadol. Change i n route of administration has been from oral to IV dose when he came into the emergency room. He blair s not insist on certain pain medications. He is very open and very honest with his past medical hist ory. Overall, severity of his pain is intense and severe but without side effects with the Dilaudid he received when hospitalized. MEDICATIONS: Please refer to reconciliation sheet. ALLERGIES: NO KNOWN DRUG ALLERGIES. MAJOR MEDICAL PROBLEMS: As per history of present illness. SOCIAL HISTORY: Nonsmoker, nondrinker. He is not , but he does have 1 daughter who lives on the [place] [facility] and very close to her. Ex- is at the bedside, very close also. He has a friend o f 45 years who is at the bedside also. FAMILY HISTORY: Noncontributory towards this hospitalization. No family history of serious major m edical problems. REVIEW OF SYSTEMS: Cannot be obtained at this time. This gentleman is in extremis. PHYSICAL EXAMINATION: GENERAL: Shows an ill-appearing, frail icteric male who is gaunt and thin on examination. VITAL SIGNS: Blood pressure 95/55, pulse is 65 and regular, respirations 18, temperature 97.4 degre es, 99% saturation on room air. HEENT: He is normocephalic, atraumatic. Acyanotic he has circumferential jaundice, jaundice sclera e and bilateral jaundice from head to toe. CHEST: Shows distant breath sounds throughout both lung lucas, inspiratory and expiratory rales, d ry, right greater than left. COR: S1, S2, without S3, S4, murmur, gallop, rub. Normal rate, normal rhythm. ABDOMEN: Soft, active bowel sounds. EXTREMITIES: Without clubbing, cyanosis or edema. LABORATORY TESTS: Have been reviewed. Serum sodium 138, potassium 3.6, chloride 105, bicarbonate 2 1, BUN of 13, creatinine 0.64, blood sugar 84. Hematology: White blood cell count of 20.7, hemoglob in 9.2, hematocrit 27.9, MCV of 89.4, platelet count of 745,000. Please refer to dictated CT scan r eport in patient's chart done on March 30. ASSESSMENT AND PLAN: This is a very ill, uncomfortable 61-year-old gentleman who has pain out of co ntrol at this time. Please refer to history of present illness for character, severity of his pain and location. At this time, he states that he has had a dose of Dilaudid in the emergency room and ariane mayes had significant release of his discomfort. In addition, felt like his overall emotional condition and general comfort level increased significantly. Pain decreased significantly to the point that ariane mayes was minimally uncomfortable. At this time, I would suggest putting him on a ECONOMICS DEPARTMENT CHAIR pump. I have expl ained to him that this would be a good alternative to just p.r.n. dosing pain medications, but in ad dition to that, I will start him off on pulse doses of steroids at this time, Solu-Medrol at the out side chance this gentleman's pain will be better controlled with corticosteroids if there is any mas s effect in his right upper quadrant or if there is a tumor mass in his right upper quadrant superio r to his liver. Additionally, we will speak to the nursing staff to call me in the event that his p ain is out of control, this gentleman will need support and we will continue to do so. Dictated By: SAVANAH DUBOSE MD, LP/JASMYNE Conf#: [id number] DID#: [id number]
[2017-03-31 21:03] VITALS: BP 88/56; RESP 18
[2017-03-31 21:30] VITALS: BP 95/59
--- NOTE | 2017-03-31 22:43 | CONS ---
Date/Time of Note Date/Time of Note DATE: 03/31/17 TIME: 22:34 Assessment/Plan Assessment/Plan Chief Complaint/Hosp Course A/P 1. 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 postop lobular area of elevated T2 signal is seen in the central liver worrisome for a mass possibly cholangiocarcinoma and this causes prominent intrahepatic biliary ductal dilatation of both the left and right intrahepatic biliary ducts with central loss of signal at the area of the mass. prob recurent tumor will review CT and MRI TUMOR MARKERS : ca 19-9 1420 , most likely 2 to tumor progression CONSIDER BX, hepatobiliary consult WILL D/W GI 2. Obstructive jaundice. Stable, ro stricture/recurrent tumor. MRCP/GI eval, hepatobiliary surgery consult 3. Chronic Crohn's disease status post total proctocolectomy with J-pouch creation 2005. 4. Chronic primary sclerosing cholangitis w cholangiocarcinoma. Needs advanced care planning evaluated. Poor prognosis. Performance status questionable at this time for chemotherapy & bilirubin needs some improvement. 5. Malnutrition; oral feeds/Megace vs TPN 6. Active pouchitis? 7. Postop day 16 bd excision w cholecystectomy, excision of extrahepatic cbd and Isabell-en-Y hepaticojejunostomy. 8. Failure to thrive, may need snf 9. Anemia 10. Reactive thrombocytosis 11. Dyslipidemia. Problems: Consultation Date/Type/Reason Admit Date/Time March 30, 2017 at 18:53 Date of Consultation: March 31, 2017 Type of Consultation: [facility] Reason for Consultation 03/31/17 Referring Provider: HUMZA JAIME MD Hx of Present Illness Mr. Raad Mancera is a 61-year-old man that was brought to the hospital secondary to increasing weakness, jaundice, and diffuse body pain. Patient has extensive past medical history as noted below. Patient denies nausea, vomiting , fever, chills, diarrhea, and hematochezia. MRCP and cancer markers will be ordered to further evaluate worsening jaundice and LFTs. PMH: H/o Ulcerative colitis who failed medical management status post total proctocolectomy with J-pouch creation 2005. Patient also has history of primary sclerosing cholangitis and had a ERCP with stent placed and was later discovered to have cholangiocarcinoma. Patient is status post ERCP with CBD stent placement, EGD, EUS and flexible sigmoidoscopy with jejunal pouch biopsy negative for dysplasia or malignancy but notable for focally active pouchitis. On January 24, 2017 patient underwent bile duct excision with cholecystectomy, excision of extrahepatic common bile duct, and Isabell-en-Y hepaticojejunostomy. LABS AFP -1.8 -January 14, 2017 (0.0 -9.0) CA 19-9 - 272.9 -January 14, 2017 (0.0 -35.0) CEA - 1.6 -January 14 2017 (0.02 - 3.0) JAK2 V617F mutation - not detected -January 14, 2017 AST - 79 - February 08, 2017 ALT - 34 - February 08, 2017 ALP - 424 -February 08, 2017 PROCEDURES AND SURGERIES Choledochojejunostomy -January 24, 2017 Bile duct excision with cholecystectomy, excision of extrahepatic common bile duct, and Isabell-en-Y hepaticojejunostomy. 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 Metastatic carcinoma identified in 1 out of 8 lymph node sample. Low-grade dysplasia and common bile duct and cystic duct. No definitive vascular invasion. Extensive perineural invasion is identified. Adenocarcinoma diffusely involving gallbladder, the largest lesion measuring 1.5 cm in greatest dimension ERCP -January 16, 2017: Proximal CBD mass measuring 22 mm x 18 mm with biliary dilation above mass. 10 Hungarian 10 cm plastic CBD stent was placed trans- papillary across the lesion. Large amount of bile duct sludge removed with balloon sweeps. Cholelithiasis Endoscopic abdominal ultrasound -January 16, 2017 Sigmoidoscopy -January 16, 2017: Moderate pouchitis. Negative for dysplasia or malignancy ERCP - October 01, 2014 ERCP - February 26, 2014 Social History Smoking Status: Never smoker Social History Smoking Status: Never smoker Exam/Review of Systems Vital Signs Vitals Vital Signs Date Time Temp Pulse Resp B/P Pulse Ox O2 Delivery O2 Flow Rate FiO2 03/31/17 21:03 97.0 62 18 88/56 98 03/30/17 17:42 Room Air 03/30/17 17:29 2 Intake and Output 03/30/17 03/30/17 03/31/17 15:00 23:00 07:00 Intake Total 1000 ml 350 ml Balance 1000 ml 350 ml Exam Constitutional: alert, oriented, very thin, slightly tired, jaundice Psych: nl mood/affect Head: normocephalic Eyes: EOMI, sclera anicteric, nl lids ENMT: nl external ears & nose, nl lips & teeth, nl nasal mucosa & septum Respiratory: clear to auscultation, normal air movement Cardiovascular: regular rate and rhythm Gastrointestinal: soft, diffuse abdominal tenderness Musculoskeletal: nl extremities to inspection Neurological: 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 intact Results Result Diagram: 03/31/17 0500 03/31/17 0500 Results 24 hrs Laboratory Tests Test 03/31/17 05:00 White Blood Count 20.7 H Red Blood Count 3.12 L Hemoglobin 9.2 L Hematocrit 27.9 L Mean Corpuscular Volume 89.4 Mean Corpuscular Hemoglobin 29.5 Mean Corpuscular Hemoglobin Concent 33.0 Red Cell Distribution Width 17.7 H Platelet Count 745 H Mean Platelet Volume 9.1 Differential Comment AUTO w/SCAN Sodium Level 138 Potassium Level 3.6 Chloride Level 105 Carbon Dioxide Level 21 Anion Gap 16 Blood Urea Nitrogen 13 Creatinine 0.64 Glucose Level 84 Hemoglobin A1c 5.0 Calcium Level 8.5 Phosphorus Level 3.8 Magnesium Level 1.9 Triglycerides Level 123 Cholesterol Level 216 H LDL Cholesterol, Calculated 164 HDL Cholesterol 27 L Cholesterol/HDL Ratio 8.0 Alpha Fetoprotein 1.23 Carcinoembryonic Antigen 2.0 CA 19-9 Antigen 1420.0 H CA 125 Antigen 54.8 H Thyroid Stimulating Hormone (TSH) 0.674 Medications Medications Current Medications Ondansetron HCl (Zofran Inj) 4 mg Q6H PRN IV NAUSEA AND/OR VOMITING; Start at 19:30 Acetaminophen (Tylenol Tab) 650 mg Q6H PRN PO PAIN LEVEL 1-3 OR FEVER; Start at 19:30 Docusate Sodium (Colace) 100 mg Q12H PRN PO CONSTIPATION; Start 03/30/17 at 19: 30 Magnesium Hydroxide (Milk Of Mag) 30 ml DAILY PRN PO CONSTIPATION; Start at 19:30 Sodium Biphosphate/ Sodium Phosphate (Fleet Enema) 133 ml DAILY PRN [place] CONSTIPATION; Start 03/30/17 at 19:30 Pantoprazole (Protonix Iv) 40 mg DAILY@06 IV Last administered on 03/31/17t 06: 23; Admin Dose 40 MG; Start 03/31/17 at 06:00 Lorazepam 0.5 mg 0.5 mg Q6H PRN IV ANXIETY; Start 03/30/17 at 19:30 Sodium Chloride 1,000 ml @ 100 mls/hr Q10H IV Last administered on 03/31/17 22:16; Admin Dose 100 MLS/HR; Start 03/30/17 at 19:27 Piperacillin Sod/ Tazobactam Sod (Zosyn 3.375gm/ 100 ml (Pmx)) 100 ml @ 200 mls /hr Q6 IVPB Last administered on 03/31/17 18:18; Admin Dose 200 MLS/HR; Start 03/31/17 at 00:00 Vancomycin HCl (Vanco Iv Per Pharmacy) VANCOMYCIN PER PHARMACY NOTE XX ; Start 03/30/17 at 19:30 Hydralazine HCl (Apresoline) 10 mg Q6H PRN IV ELEVATED BLOOD PRESSURE; Start at 19:30 Nitroglycerin (Nitroglycerin (Sl Tab) 0.4 Mg) 1 tab Q5M PRN SL ANGINA; Start at 19:30 Escitalopram Oxalate 10 mg 10 mg DAILY PO Last administered on 03/31/17 09:23 ; Admin Dose 10 MG; Start 03/31/17 at 09:00 Vancomycin HCl/ Sodium Chloride (Vancocin/NS) 150 ml @ 75 mls/hr Q12H IVPB Last administered on 03/31/17 12:12; Admin Dose 75 MLS/HR; Start 03/31/17 at 11 :00 Miscellaneous Information (*Rx Drug Level Order Reminder*) VANCOMYCIN TROUGH AT 1000 ONCE ONCE XX ; Start 04/01/17 at 10:00; Stop 04/01/17 at 10:01 Hydromorphone HCl (Dilaudid PHYSICIAN PRACTICE ADMINISTRATOR) MG/HR CONTINUOUS R... Q4PCA IV Last administered on 03/31/17 15:09; Admin Dose 6 MG; Start 03/31/17 at 13:30 Methylprednisolone Sodium Succinate (Solu-Medrol) 60 mg Q8 IV Last administered on 03/31/17 22:16; Admin Dose 60 MG; Start 03/31/17 at 14:00 Procedures Procedures [place] [id number] Radiology Main Line: [phone] DIAGNOSTIC IMAGING REPORT Patient: RAAD CONNORS : 1955 Age: 61 Sex: M MR #: [id number] [facility] #: [id number] DOS: 03/30/17 1659 Ordering MD: TERRY LORENZ MD Location: E/R Room/Bed: PROCEDURE: CT Abdomen and Pelvis without contrast. CLINICAL INDICATION: Abdominal pelvic pain. Primary sclerosing cholangitis. Previous jejunal pouch construction surgery. Previous biliary stent placement removal. TECHNIQUE: CT scan of the abdomen and pelvis without contrast was performed on a multidetector high-resolution CT scanner. The patient was scanned without intravenous contrast. Coronal and sagittal reformatted images were obtained from the axial source images. Images were reviewed on a high-resolution PACS workstation. The total exam CTDI equals 4.67 mGy and the total exam DLP equals 241.78 mGy-cm. Study is limited due to lack of oral and IV contrast. One or more of the following dose reduction techniques were used: - Automated exposure control. - Adjustment of the mA and/or kV according to patient size. - Use of iterative reconstruction technique. COMPARISON: None. FINDINGS: CT abdomen: The lung bases are clear. The heart size is normal, without pericardial thickening or effusion. The liver is normal in size and density with abnormal infiltration in the central mid liver resulting in significant intrahepatic biliary dilatation. An obstructive mass lesion including not limited to cholangiocarcinoma should be considered. Further evaluation with MRI is advised with contrast for more complete assessment. The spleen is normal in size and homogeneous in density. The stomach is partially collapsed, but is grossly unremarkable. The pancreas as visualized is normal. The gallbladder is surgically absent. Numerous surgical clips are seen scattered around the right upper quadrant of the abdomen. biliary tree are unremarkable and there is no evidence for biliary dilatation. The adrenal glands are symmetric and normal. The kidneys are symmetrically unremarkable as well. No renal calculus or obstructive uropathy or mass lesion is seen. The aorta is of normal caliber. Aortic vascular calcifications are present. There is no retroperitoneal lymphadenopathy. The randi hepatis region is clear. The bowel and mesentery, as visualized, are limited in evaluation due to lack of oral and IV contrast. Surgical microstaple line is seen involving a loop of bowel in the right anterior mid abdomen. CT pelvis: The small bowel loops situated within the pelvis are unremarkable. The pelvic organs are remarkable for enlargement of the prostate gland. The pelvic sidewalls and inguinal regions are clear. The sigmoid colon and rectum are remarkable for a surgical microstaple line of the lower colon with extensive postsurgical changes. No mass or adenopathy is seen. No free fluid is present. No acute inflammation is identified at this time. The surrounding osseous structures are remarkable for degenerative spondylosis of the spine. No osteolytic or osteoblastic lesion is detected. IMPRESSION: 1. Extensive postsurgical changes involving the bowel loops throughout the abdominal pelvic cavity including the right upper quadrant small bowel, and the distal sigmoid colon and rectum. 2. Significant intrahepatic biliary dilatation with increased density in the central periportal region of the liver. Underlying infiltrative mass lesion should be considered. Further evaluation with liver MRI with contrast is recommended for more complete assessment. 3. Scattered benign chronic changes seen elsewhere throughout the study, as detailed above. Results discussed with Dr. Lorenz in the ER at 7:13 p.m. on 03/30/2017. RPTAT: HMJB .Jelani Yang MD, MD Date Time Electronically viewed and signed by .Jelani Yang MD, MD on 03/30/2017 19:15 .B/ CC: TERRY LORENZ MD [place] [id number] Radiology Main Line: [phone] DIAGNOSTIC IMAGING REPORT Patient: RAAD CONNORS : 1955 Age: 61 Sex: M MR #: [id number] DOS: 03/31/17 0806 Ordering MD: RENAE PRUITT MD [place] [facility] [place]Bed: 601-A PROCEDURE: MRI abdomen without contrast CLINICAL INDICATION: Suspected liver lesion TECHNIQUE: An MRI of the abdomen was performed utilizing a high field MRI scanner with the following pulsed sequences: Axial T2 fast spin-echo, axial T2 non-fat saturation fast spin-echo, axial T1 gradient echo in-phase and opposed-phase. Noncontrast fat sat T1-weighted images were also obtained. Coronal T2 and fat- saturated T2-weighted images were also obtained. Diffusion-weighted images and ADC maps were also obtained. COMPARISON: CT 03/30/2017 FINDINGS: Lack of IV contrast limits evaluation for enhancing masses. There is diffuse prominent intrahepatic biliary ductal dilatation with loss of visibility of the biliary ductal system centrally within the liver where there is a lobular area of elevated T2 signal measuring approximately 4.8 x 3.5 cm most likely an obstructing mass. There is prominent enlarged appearance of the liver as well with a somewhat nodular contour. The spleen is mildly enlarged. There is mild intra-abdominal ascites seen with fat stranding of the mesentery. Extensive surgical changes are seen within the right upper quadrant and fine detail of the bowel is limited by MRI. The gallbladder is absent and surgically removed. There is flow void seen within the portal vein and splenic vein without evidence of thrombus. Upper abdominal varices are present. The adrenal glands and kidneys are symmetric without evidence of mass and there is no evidence of hydronephrosis. There is uniform signal intensity of the pancreatic parenchyma without evidence of focal lesion or pancreatic ductal dilatation. No surrounding gross inflammatory changes are present. There is no evidence of bowel obstruction. No gross enlarged lymph nodes are present. There is aortic tortuosity and atherosclerosis. Degenerative changes seen within the lumbar spine. RPTAT: AA IMPRESSION: There is a lobular area of elevated T2 signal is seen in the central liver worrisome for a mass possibly cholangiocarcinoma and this causes prominent intrahepatic biliary ductal dilatation of both the left and right intrahepatic biliary ducts with central loss of signal at the area of the mass. Prominent hepatomegaly is seen with findings suggestive for portal hypertension. Mild ascites is seen. Surgical changes are seen of the bowel with no evidence of an obstruction. There is a fecal filled colon. Atherosclerotic disease. RPTAT: AA .Vee Jarvis MD, MD Date Time Electronically viewed and signed by .Vee Jarvis MD, MD on 03/31/2017 16:40 .J/ CC: RENAE PRUITT MD, VERA M MD March 31, 2017 22:43
[2017-04-01] VITALS (10 sets, daily range): BP systolic 90–138; BP diastolic 55–78; PULSE 40–55; RESP 17–18
[2017-04-01] MEDS: PIPER-TAZO 3.375 GM IV (PMX) 100 ML IVPB SCH ×5 (01:15→23:43)
[2017-04-01] MEDS: SOD CHLORIDE 0.9% 1,000 ML IV SCH ×3 (01:27→20:38)
[2017-04-01 03:56] LABS: ADD UMIC YES; UR BILIRUBIN (Dip) 3+ (NEGATIVE); UR BLOOD (Dip) NEGATIVE (NEGATIVE); UR CLARITY SLIGHTLY CLOUDY (CLEAR); UR COLOR AMBER (YELLOW); UR GLUCOSE (Dip) NEGATIVE (NEGATIVE); UR KETONES (Dip) NEGATIVE (NEGATIVE); UR LEUKOCYTE ESTERASE (Dip) NEGATIVE (NEGATIVE); UR NITRITE (Dip) NEGATIVE (NEGATIVE); UR TOTAL PROTEIN (Dip) TRACE (NEGATIVE); UR UROBILINOGEN (Dip) 0.2 E.U./dL (0.1-1.0)
[2017-04-01 04:20] LABS: ICTOTEST POSITIVE (NEGATIVE)
[2017-04-01 04:21] LABS: UR SQUAMOUS EPITHELIAL CELL FEW; URINE RBCS 0-2 /HPF (0)
[2017-04-01 04:22] LABS: UR BACTERIA FEW
[2017-04-01] MEDS: PANTOPRAZOLE 40 MG INJ IV SCH (06:41)
[2017-04-01] MEDS: METHYLPREDNISOLONE 125 MG INJ IV SCH ×3 (06:41→21:58)
[2017-04-01 07:35] LABS: ADD SCAN DIFF NO
[2017-04-01 07:40] LABS: BASOPHILS % 0.2 % (0.0-2.0); HEMATOCRIT 26.8 % (42.0-52.0); HEMOGLOBIN 8.7 g/dl (14.0-18.0); LYMPHOCYTES # 0.8 10^3/ul (0.8-2.9); LYMPHOCYTES % 6.8 % (15.0-51.0); MEAN CORPUSCULAR HEMOGLOBIN 29.3 pg (29.0-33.0); MEAN CORPUSCULAR HGB CONC 32.5 g/dl (32.0-37.0); MEAN CORPUSCULAR VOLUME 90.2 fl (82.0-101.0); MEAN PLATELET VOLUME 8.7 fl (7.4-10.4); MONOCYTE # 0.1 10^3/ul (0.3-0.9); MONOCYTES % 0.7 % (0.0-11.0); NEUTROPHIL # 10.2 10^3/ul (1.6-7.5); PLATELET COUNT 634 10^3/UL (140-415); RED BLOOD COUNT 2.97 10^6/ul (4.70-6.10); RED CELL DISTRIBUTION WIDTH 17.9 % (11.5-14.5); WHITE BLOOD COUNT 11.2 10^3/ul (4.8-10.8)
--- NOTE | 2017-04-01 07:50 | RADRPT ---
PROCEDURE: XR Left Shoulder. CLINICAL INDICATION: Left shoulder pain. TECHNIQUE: Two views. Frontal and oblique. COMPARISON: No prior study is available for comparison. FINDINGS: There is no fracture or dislocation. The soft tissues are normal. Articular surfaces are intact. There is no lytic or blastic lesion. There is no radiopaque foreign body. IMPRESSION: 1. Normal images of the left shoulder. RPTAT: QQ .Talat Grijalva MD, MD Date Time Electronically viewed and signed by .Talat Grijalva MD, MD on 04/01/2017 07:49 .R/
[2017-04-01 08:01] LABS: ALBUMIN 2.2 g/dl (3.3-4.9); ALBUMIN/GLOBULIN RATIO 0.47; BILIRUBIN,DIRECT 1.7 mg/dl (0.00-0.20); BILIRUBIN,INDIRECT 0.7 mg/dl (0-1.1); BILIRUBIN,TOTAL 2.4 mg/dl (0.2-1.3); CALCIUM 8.6 mg/dl (8.4-10.2); CREATININE 0.62 mg/dl (0.61-1.24); POTASSIUM 4.1 mmol/L (3.5-5.1); TOTAL PROTEIN 6.8 g/dl (6.1-8.1)
[2017-04-01 08:13] LABS: TROPONIN-I < 0.012 ng/ml (0.00-0.12)
[2017-04-01 08:30] LABS: THYROID STIMULATING HORMONE 0.236 MIU/L (0.465-4.680)
[2017-04-01] MEDS: ESCITALOPRAM 10 MG TAB PO SCH (10:16)
--- NOTE | 2017-04-01 11:00 | PN ---
Date/Time of Note Date/Time of Note DATE: 04/01/17 TIME: 10:57 Assessment/Plan VTE Prophylaxis VTE Prophylaxis Intervention: SCD's Lines/Catheters IV Catheter Type (from [facility]): Peripheral IV Urinary Cath still in place: No Assessment/Plan Assessment/Plan 1. Obstructive jaundice. Stable, MRI showed recurrent of tumour, Hepatobiliary surgery contacted to see pt 2. 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 3. Chronic Crohn's diseasestatus post total proctocolectomy with J-pouch creation 2005. 4. Chronic primary sclerosing cholangitis w cholangiocarcinoma. Needs advanced care planning evaluated. Poor prognosis. Performance status questionable at this time for chemotherapy & bilirubin needs some improvement. 5. Malnutrition; oral feeds/Megace vs TPN 6. Active pouchitis? 7. Postop day 16 bd excision w cholecystectomy, excision of extrahepatic cbd and Isabell-en-Y hepaticojejunostomy. 8. Failure to thrive, may need snf 9. Anemia 10. Reactive thrombocytosis 11. Dyslipidemia. 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 +icterus Reg, no m/r/g CTAB Bs +nt nd no r/r/g. Scaphoid. Scars c/d/i No edema Results Result Diagram: 04/01/1772304/01/17 0724 Results 24 hrs Laboratory Tests Test 04/01/17 02:00 04/01/17 07:24 Urine Color COURTNEY Urine Clarity SLIGHTLY CLOUDY Urine pH 5.5 Urine Specific [place] 1.025 Urine Ketones NEGATIVE Urine Nitrite NEGATIVE Urine Bilirubin 3+ H Urine Ictotest POSITIVE Urine Urobilinogen 0.2 E.U./dL Urine Leukocyte Esterase NEGATIVE Urine Microscopic RBC 0-2 Urine Microscopic WBC 0-2 Urine Squamous Epithelial Cells FEW Urine Bacteria FEW Urine Hyaline Casts OCCASIONAL Urine Granular Casts FEW Urine Hemoglobin NEGATIVE Urine Glucose NEGATIVE Urine Total Protein TRACE White Blood Count 11.2 #H Red Blood Count 2.97 L Hemoglobin 8.7 L Hematocrit 26.8 L Mean Corpuscular Volume 90.2 Mean Corpuscular Hemoglobin 29.3 Mean Corpuscular Hemoglobin Concent 32.5 Red Cell Distribution Width 17.9 H Platelet Count 634 H Mean Platelet Volume 8.7 Neutrophils % 91.0 H Lymphocytes % 6.8 L Monocytes % 0.7 Eosinophils % 0.0 Basophils % 0.2 Nucleated Red Blood Cells % 0.0 Neutrophils # 10.2 H Lymphocytes # 0.8 Monocytes # 0.1 L Eosinophils # 0.0 Basophils # 0.0 Nucleated Red Blood Cells # 0.0 Sodium Level 135 Potassium Level 4.1 Chloride Level 108 Carbon Dioxide Level 23 Anion Gap 8 # Blood Urea Nitrogen 13 Creatinine 0.62 Glucose Level 165 Calcium Level 8.6 Total Bilirubin 2.4 #H Direct Bilirubin 1.70 #H Indirect Bilirubin 0.7 Aspartate Amino Transf (AST/SGOT) 105 H Alanine Aminotransferase (ALT/SGPT) 102 H Alkaline Phosphatase 1245 H Troponin I < 0.012 Total Protein 6.8 # Albumin 2.2 L Globulin 4.60 H Albumin/Globulin Ratio 0.47 Thyroid Stimulating Hormone (TSH) 0.236 L Medications Medications Current Medications Ondansetron HCl (Zofran Inj) 4 mg Q6H PRN IV NAUSEA AND/OR VOMITING; Start at 19:30 Acetaminophen (Tylenol Tab) 650 mg Q6H PRN PO PAIN LEVEL 1-3 OR FEVER; Start at 19:30 Docusate Sodium (Colace) 100 mg Q12H PRN PO CONSTIPATION; Start 03/30/17 at 19: 30 Magnesium Hydroxide (Milk Of Mag) 30 ml DAILY PRN PO CONSTIPATION; Start at 19:30 Sodium Biphosphate/ Sodium Phosphate (Fleet Enema) 133 ml DAILY PRN [place] CONSTIPATION; Start 03/30/17 at 19:30 Pantoprazole (Protonix Iv) 40 mg DAILY@06 IV Last administered on 04/01/17 06: 41; Admin Dose 40 MG; Start 03/31/17 at 06:00 Lorazepam 0.5 mg 0.5 mg Q6H PRN IV ANXIETY; Start 03/30/17 at 19:30 Sodium Chloride 1,000 ml @ 100 mls/hr Q10H IV Last administered on 03/31/17 22:16; Admin Dose 100 MLS/HR; Start 03/30/17 at 19:27 Piperacillin Sod/ Tazobactam Sod (Zosyn 3.375gm/ 100 ml (Pmx)) 100 ml @ 200 mls /hr Q6 IVPB Last administered on 04/01/17 06:41; Admin Dose 200 MLS/HR; Start 03/31/17 at 00:00 Vancomycin HCl (Vanco Iv Per Pharmacy) VANCOMYCIN PER PHARMACY NOTE XX ; Start 03/30/17 at 19:30 Hydralazine HCl (Apresoline) 10 mg Q6H PRN IV ELEVATED BLOOD PRESSURE; Start at 19:30 Nitroglycerin (Nitroglycerin (Sl Tab) 0.4 Mg) 1 tab Q5M PRN SL ANGINA; Start at 19:30 Escitalopram Oxalate 10 mg 10 mg DAILY PO Last administered on 04/01/17 10:16 ; Admin Dose 10 MG; Start 03/31/17 at 09:00 Vancomycin HCl/ Sodium Chloride (Vancocin/NS) 150 ml @ 75 mls/hr Q12H IVPB Last administered on 03/31/17 23:05; Admin Dose 75 MLS/HR; Start 03/31/17 at 11 :00 Hydromorphone HCl (Dilaudid CRYSTAL GROWING TECHNICIAN) MG/HR CONTINUOUS R... Q4PCA IV Last administered on 03/31/17 15:09; Admin Dose 6 MG; Start 03/31/17 at 13:30 Methylprednisolone Sodium Succinate (Solu-Medrol) 60 mg Q8 IV Last administered on 04/01/17 06:41; Admin Dose 60 MG; Start 03/31/17 at 14:00 DWIGHT NEAL MD April 01, 2017 11:00
[2017-04-01] MEDS: VANCOMYCIN 1 GM in NS 250 ML IVPB SCH (13:35)
--- NOTE | 2017-04-01 17:18 | PN ---
Date/Time of Note Date/Time of Note DATE: 04/01/17 TIME: 17:09 Assessment/Plan VTE Prophylaxis VTE Prophylaxis Intervention: SCD's Lines/Catheters IV [facility] Type [facility]from [facility] Peripheral IV Urinary Cath still in place: No Assessment/Plan Assessment/Plan Assessment * Obstructive jaundice S/P bile duct excision with cholecystectomy excision pf extrahepatic duct,and Isabell en Y hepaticojejuniostomy MRI 03/31/2017 There is a lobular area of elevated T2 signal is seen in the central liver worrisome for a mass possibly cholangiocarcinoma and this causes prominent intrahepatic biliary ductal dilatation of both the left and right intrahepatic biliary ducts with central loss of signal at the area of the mass. Prominent hepatomegaly is seen with findings suggestive for portal hypertension. Mild ascites is seen. Surgical changes are seen of the bowel with no evidence of an obstruction. There is a fecal filled colon * History of proctocolectomy with J pouch 2005 * Intractable pain Plan * Continue present management * surgical consult Dr Anderson * pain control * consider biliary drainage by interventional radiology Subjective 24 Hr Interval Summary Free Text/Dictation * Course reviewed with RN * Patient seen and examined * MRCP 03/31/2017 There is a lobular area of elevated T2 signal is seen in the central liver worrisome for a mass possibly cholangiocarcinoma and this causes prominent intrahepatic biliary ductal dilatation of both the left and right intrahepatic biliary ducts with central loss of signal at the area of the mass. Prominent hepatomegaly is seen with findings suggestive for portal hypertension.Mild ascites is seen. Surgical changes are seen of the bowel with no evidence of an obstruction. There is a fecal filled colon. Atherosclerotic disease. Exam/Review of Systems Vital Signs Vitals Vital Signs Date Time Temp Pulse Resp B/P Pulse Ox O2 Delivery O2 Flow Rate FiO2 04/01/17 16:48 53 04/01/17 11:57 98.0 18 93/55 99 04/01/17 06:45 Room Air 03/30/17 17:29 2 Intake and Output 03/31/17 03/31/17 04/01/17 15:00 23:00 07:00 Intake Total 1700 ml 1230 ml Output Total 600 ml 200 ml Balance 1100 ml 1030 ml Exam Constitutional: alert, oriented Eyes: icteric Neck: supple Respiratory: clear to auscultation, normal air movement Cardiovascular: nl pulses, regular rate and rhythm Gastrointestinal: bowel sounds, non-tender, soft Musculoskeletal: nl extremities to inspection Neurological: nl speech Results Result Diagram: 04/01/17 0724 04/01/17 0724 Results 24 hrs Laboratory Tests Test 04/01/17 02:00 04/01/17 07:24 04/01/17 10:20 04/01/17 14:15 Urine Color COURTNEY Urine Clarity SLIGHTLY CLOUDY Urine pH 5.5 Urine Specific [place] 1.025 Urine Ketones NEGATIVE Urine Nitrite NEGATIVE Urine Bilirubin 3+ H Urine Ictotest POSITIVE Urine Urobilinogen 0.2 E.U./dL Urine Leukocyte Esterase NEGATIVE Urine Microscopic RBC 0-2 Urine Microscopic WBC 0-2 Urine Squamous Epithelial Cells FEW Urine Bacteria FEW Urine Hyaline Casts OCCASIONAL Urine Granular Casts FEW Urine Hemoglobin NEGATIVE Urine Glucose NEGATIVE Urine Total Protein TRACE White Blood Count 11.2 #H Red Blood Count 2.97 L Hemoglobin 8.7 L Hematocrit 26.8 L Mean Corpuscular Volume 90.2 Mean Corpuscular Hemoglobin 29.3 Mean Corpuscular Hemoglobin Concent 32.5 Red Cell Distribution Width 17.9 H Platelet Count 634 H Mean Platelet Volume 8.7 Neutrophils % 91.0 H Lymphocytes % 6.8 L Monocytes % 0.7 Eosinophils % 0.0 Basophils % 0.2 Nucleated Red Blood Cells % 0.0 Neutrophils # 10.2 H Lymphocytes # 0.8 Monocytes # 0.1 L Eosinophils # 0.0 Basophils # 0.0 Nucleated Red Blood Cells # 0.0 Sodium Level 135 Potassium Level 4.1 Chloride Level 108 Carbon Dioxide Level 23 Anion Gap 8 # Blood Urea Nitrogen 13 Creatinine 0.62 Glucose Level 165 Calcium Level 8.6 Total Bilirubin 2.4 #H Direct Bilirubin 1.70 #H Indirect Bilirubin 0.7 Aspartate Amino Transf (AST/SGOT) 105 H Alanine Aminotransferase (ALT/SGPT) 102 H Alkaline Phosphatase 1245 H Troponin I < 0.012 < 0.012 Total Protein 6.8 # Albumin 2.2 L Globulin 4.60 H Albumin/Globulin Ratio 0.47 Thyroid Stimulating Hormone (TSH) 0.236 L Vancomycin Level Trough 9.3 L Medications Medications Current Medications Ondansetron HCl (Zofran Inj) 4 mg Q6H PRN IV NAUSEA AND/OR VOMITING; Start at 19:30 Acetaminophen (Tylenol Tab) 650 mg Q6H PRN PO PAIN LEVEL 1-3 OR FEVER; Start at 19:30 Docusate Sodium (Colace) 100 mg Q12H PRN PO CONSTIPATION; Start 03/30/17 at 19: 30 Magnesium Hydroxide (Milk Of Mag) 30 ml DAILY PRN PO CONSTIPATION; Start at 19:30 Sodium Biphosphate/ Sodium Phosphate (Fleet Enema) 133 ml DAILY PRN [place] CONSTIPATION; Start 03/30/17 at 19:30 Pantoprazole (Protonix Iv) 40 mg DAILY@06 IV Last administered on 04/01/17 06: 41; Admin Dose 40 MG; Start 03/31/17 at 06:00 Lorazepam 0.5 mg 0.5 mg Q6H PRN IV ANXIETY; Start 03/30/17 at 19:30 Sodium Chloride 1,000 ml @ 100 mls/hr Q10H IV Last administered on 03/31/17 22:16; Admin Dose 100 MLS/HR; Start 03/30/17 at 19:27 Piperacillin Sod/ Tazobactam Sod (Zosyn 3.375gm/ 100 ml (Pmx)) 100 ml @ 200 mls /hr Q6 IVPB Last administered on 04/01/17 12:29; Admin Dose 200 MLS/HR; Start 03/31/17 at 00:00 Vancomycin HCl (Vanco Iv Per Pharmacy) VANCOMYCIN PER PHARMACY NOTE XX ; Start 03/30/17 at 19:30 Hydralazine HCl (Apresoline) 10 mg Q6H PRN IV ELEVATED BLOOD PRESSURE; Start at 19:30 Nitroglycerin (Nitroglycerin (Sl Tab) 0.4 Mg) 1 tab Q5M PRN SL ANGINA; Start at 19:30 Escitalopram Oxalate (Lexapro) 10 mg DAILY PO Last administered on 04/01/17 10 :16; Admin Dose 10 MG; Start 03/31/17 at 09:00 Hydromorphone HCl (Dilaudid [employer] P[employer]AGE EXAMINER) MG/HR CONTINUOUS R... Q4PCA IV Last administered on 03/31/17 15:09; Admin Dose 6 MG; Start 03/31/17 at 13:30 Methylprednisolone Sodium Succinate 60 mg 60 mg Q8 IV Last administered on 04/01 14:12; Admin Dose 60 MG; Start 03/31/17 at 14:00 Vancomycin HCl (Vancocin) 250 ml @ 125 mls/hr Q12H IVPB Last administered on t 13:35; Admin Dose 125 MLS/HR; Start 04/01/17 at 12:30 BRAD PRADO MD April 01, 2017 17:18
--- NOTE | 2017-04-01 18:26 | CONS ---
Date/Time of Note Date/Time of Note DATE: 04/01/17 TIME: 18:22 Assessment/Plan Assessment/Plan Chief Complaint/Hosp Course A/P 1. 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 postop , NOW WITH Metastatic dis in the liver lobular area of elevated T2 signal is seen in the central liver worrisome for a mass possibly cholangiocarcinoma and this causes prominent intrahepatic biliary ductal dilatation of both the left and right intrahepatic biliary ducts with central loss of signal at the area of the mass. C/W recurrent METASTATIC tumor CT and MRI- REVIEWED TUMOR MARKERS : ca 19-9 1420 , most likely 2 to tumor progression hepatobiliary consult- D/W Kt TRAORE WILL D/W GI 2. Obstructive jaundice. Stable, ro stricture/recurrent tumor. MRCP/GI eval, hepatobiliary surgery consult surgical consult Dr Anderson consider biliary drainage by interventional radiology 3. Chronic Crohn's disease status post total proctocolectomy with J-pouch creation 2005. 4. Chronic primary sclerosing cholangitis w cholangiocarcinoma. Needs advanced care planning evaluated. Poor prognosis. Performance status questionable at this time for chemotherapy & bilirubin needs some improvement. 5. Malnutrition; oral feeds/Megace vs TPN 6. Active pouchitis? 7. Postop day 16 bd excision w cholecystectomy, excision of extrahepatic cbd and Isabell-en-Y hepaticojejunostomy. 8. Failure to thrive, may need snf 9. Anemia 10. Reactive thrombocytosis 11. Dyslipidemia. Problems: Consultation Date/Type/Reason Admit Date/Time March 30, 2017 at 18:53 Initial Consult Date 03/31/17 Type of Consultation: [facility] Referring Provider: HUMZA JAIME MD 24 HR Interval Summary Free Text/Dictation ALL NOTED MRI REVIEWED D/W PT, FAMILY AND FRIEND D/W DR ALVA Exam/Review of Systems Vital Signs Vitals Vital Signs Date Time Temp Pulse Resp B/P Pulse Ox O2 Delivery O2 Flow Rate FiO2 04/01/17 16:48 53 04/01/17 11:57 98.0 18 93/55 99 04/01/17 06:45 Room Air 03/30/17 17:29 2 Intake and Output 03/31/17 03/31/17 04/01/17 15:00 23:00 07:00 Intake Total 1700 ml 1230 ml Output Total 600 ml 200 ml Balance 1100 ml 1030 ml Exam Constitutional: alert, oriented, very thin, slightly tired, jaundice Psych: nl mood/affect Head: normocephalic Eyes: EOMI, sclera anicteric, nl lids ENMT: nl external ears & nose, nl lips & teeth, nl nasal mucosa & septum Respiratory: clear to auscultation, normal air movement Cardiovascular: regular rate and rhythm Gastrointestinal: soft, diffuse abdominal tenderness Musculoskeletal: nl extremities to inspection Neurological: OILING MACHINE OPERATOR II-XII intact Results Result Diagram: 04/01/17 0724 04/01/17 0724 Results 24 hrs Laboratory Tests Test 04/01/17 02:00 04/01/17 07:24 04/01/17 10:20 04/01/17 14:15 Urine Color COURTNEY Urine Clarity SLIGHTLY CLOUDY Urine pH 5.5 Urine Specific [place] 1.025 Urine Ketones NEGATIVE Urine Nitrite NEGATIVE Urine Bilirubin 3+ H Urine Ictotest POSITIVE Urine Urobilinogen 0.2 E.U./dL Urine Leukocyte Esterase NEGATIVE Urine Microscopic RBC 0-2 Urine Microscopic WBC 0-2 Urine Squamous Epithelial Cells FEW Urine Bacteria FEW Urine Hyaline Casts OCCASIONAL Urine Granular Casts FEW Urine Hemoglobin NEGATIVE Urine Glucose NEGATIVE Urine Total Protein TRACE White Blood Count 11.2 #H Red Blood Count 2.97 L Hemoglobin 8.7 L Hematocrit 26.8 L Mean Corpuscular Volume 90.2 Mean Corpuscular Hemoglobin 29.3 Mean Corpuscular Hemoglobin Concent 32.5 Red Cell Distribution Width 17.9 H Platelet Count 634 H Mean Platelet Volume 8.7 Neutrophils % 91.0 H Lymphocytes % 6.8 L Monocytes % 0.7 Eosinophils % 0.0 Basophils % 0.2 Nucleated Red Blood Cells % 0.0 Neutrophils # 10.2 H Lymphocytes # 0.8 Monocytes # 0.1 L Eosinophils # 0.0 Basophils # 0.0 Nucleated Red Blood Cells # 0.0 Sodium Level 135 Potassium Level 4.1 Chloride Level 108 Carbon Dioxide Level 23 Anion Gap 8 # Blood Urea Nitrogen 13 Creatinine 0.62 Glucose Level 165 Calcium Level 8.6 Total Bilirubin 2.4 #H Direct Bilirubin 1.70 #H Indirect Bilirubin 0.7 Aspartate Amino Transf (AST/SGOT) 105 H Alanine Aminotransferase (ALT/SGPT) 102 H Alkaline Phosphatase 1245 H Troponin I < 0.012 < 0.012 Total Protein 6.8 # Albumin 2.2 L Globulin 4.60 H Albumin/Globulin Ratio 0.47 Thyroid Stimulating Hormone (TSH) 0.236 L Vancomycin Level Trough 9.3 L Medications Medications Current Medications Ondansetron HCl (Zofran Inj) 4 mg Q6H PRN IV NAUSEA AND/OR VOMITING; Start at 19:30 Acetaminophen (Tylenol Tab) 650 mg Q6H PRN PO PAIN LEVEL 1-3 OR FEVER; Start at 19:30 Docusate Sodium (Colace) 100 mg Q12H PRN PO CONSTIPATION; Start 03/30/17 at 19: 30 Magnesium Hydroxide (Milk Of Mag) 30 ml DAILY PRN PO CONSTIPATION; Start at 19:30 Sodium Biphosphate/ Sodium Phosphate (Fleet Enema) 133 ml DAILY PRN [place] CONSTIPATION; Start 03/30/17 at 19:30 Pantoprazole (Protonix Iv) 40 mg DAILY@06 IV Last administered on 04/01/17 06: 41; Admin Dose 40 MG; Start 03/31/17 at 06:00 Lorazepam 0.5 mg 0.5 mg Q6H PRN IV ANXIETY; Start 03/30/17 at 19:30 Sodium Chloride 1,000 ml @ 100 mls/hr Q10H IV Last administered on 03/31/17 22:16; Admin Dose 100 MLS/HR; Start 03/30/17 at 19:27 Piperacillin Sod/ Tazobactam Sod (Zosyn 3.375gm/ 100 ml (Pmx)) 100 ml @ 200 mls /hr Q6 IVPB Last administered on 04/01/17 18:17; Admin Dose 200 MLS/HR; Start 03/31/17 at 00:00 Vancomycin HCl (Vanco Iv Per Pharmacy) VANCOMYCIN PER PHARMACY NOTE XX ; Start 03/30/17 at 19:30 Hydralazine HCl (Apresoline) 10 mg Q6H PRN IV ELEVATED BLOOD PRESSURE; Start at 19:30 Nitroglycerin (Nitroglycerin (Sl Tab) 0.4 Mg) 1 tab Q5M PRN SL ANGINA; Start at 19:30 Escitalopram Oxalate (Lexapro) 10 mg DAILY PO Last administered on 04/01/17 10 :16; Admin Dose 10 MG; Start 03/31/17 at 09:00 Hydromorphone HCl (Dilaudid PARTS CLASSIFIER) MG/HR CONTINUOUS R... Q4PCA IV Last administered on 03/31/17 15:09; Admin Dose 6 MG; Start 03/31/17 at 13:30 Methylprednisolone Sodium Succinate 60 mg 60 mg Q8 IV Last administered on 04/01 14:12; Admin Dose 60 MG; Start 03/31/17 at 14:00 Vancomycin HCl (Vancocin) 250 ml @ 125 mls/hr Q12H IVPB Last administered on 13:35; Admin Dose 125 MLS/HR; Start 04/01/17 at 12:30 Procedures Procedures [place] [address] Radiology Main Line: [phone] DIAGNOSTIC IMAGING REPORT Patient: MARISOL CONNORS : 1955 Age: 61 Sex: M MR #: [id number] DOS: 03/31/17 0806 Ordering MD: RENAE PRUITT MD Location: [facility] Room/Bed: 60[facility] PROCEDURE: MRI abdomen without contrast CLINICAL INDICATION: Suspected liver lesion TECHNIQUE: An MRI of the abdomen was performed utilizing a high field MRI scanner with the following pulsed sequences: Axial T2 fast spin-echo, axial T2 non-fat saturation fast spin-echo, axial T1 gradient echo in-phase and opposed-phase. Noncontrast fat sat T1-weighted images were also obtained. Coronal T2 and fat- saturated T2-weighted images were also obtained. Diffusion-weighted images and ADC maps were also obtained. COMPARISON: CT 03/30/2017 FINDINGS: Lack of IV contrast limits evaluation for enhancing masses. There is diffuse prominent intrahepatic biliary ductal dilatation with loss of visibility of the biliary ductal system centrally within the liver where there is a lobular area of elevated T2 signal measuring approximately 4.8 x 3.5 cm most likely an obstructing mass. There is prominent enlarged appearance of the liver as well with a somewhat nodular contour. The spleen is mildly enlarged. There is mild intra-abdominal ascites seen with fat stranding of the mesentery. Extensive surgical changes are seen within the right upper quadrant and fine detail of the bowel is limited by MRI. The gallbladder is absent and surgically removed. There is flow void seen within the portal vein and splenic vein without evidence of thrombus. Upper abdominal varices are present. The adrenal glands and kidneys are symmetric without evidence of mass and there is no evidence of hydronephrosis. There is uniform signal intensity of the pancreatic parenchyma without evidence of focal lesion or pancreatic ductal dilatation. No surrounding gross inflammatory changes are present. There is no evidence of bowel obstruction. No gross enlarged lymph nodes are present. There is aortic tortuosity and atherosclerosis. Degenerative changes seen within the lumbar spine. RPTAT: AA IMPRESSION: There is a lobular area of elevated T2 signal is seen in the central liver worrisome for a mass possibly cholangiocarcinoma and this causes prominent intrahepatic biliary ductal dilatation of both the left and right intrahepatic biliary ducts with central loss of signal at the area of the mass. Prominent hepatomegaly is seen with findings suggestive for portal hypertension. Mild ascites is seen. Surgical changes are seen of the bowel with no evidence of an obstruction. There is a fecal filled colon. Atherosclerotic disease. RPTAT: AA .Vee Jarvis MD, MD Date Time Electronically viewed and signed by .Vee Jarvis MD, on 03/31/2017 16:40 .J/ CC: RENAE PRUITT MD, VERA M MD April 01, 2017 18:26
--- NOTE | 2017-04-01 19:24 | CONS ---
DATE OF ADMISSION: 03/30/2017 DATE OF CONSULTATION: 04/01/2017 TYPE OF CONSULTATION: Pulmonary. REFERRING PHYSICIAN: Dr. Ramirez Santos. REASON FOR CONSULTATION: Bradycardia. CHIEF COMPLAINT: Jaundice. HISTORY OF PRESENT ILLNESS: Thank you for this referral. History obtained from the patient, review of the chart and staff. This is an unfortunate 61-year-old gentleman with history of ulcerative co litis, history of stage IV lymphoma who was admitted because of general weakness, fevers, weight los s, decreased appetite, and diffuse pain. The patient had a recent complicated course and had multip le surgeries recently. He was noted to be markedly bradycardic, heart rate as low as 40. Blood pre ssure, ____ asked to evaluate and treat. The patient denies any chest pain or pressure to me. Salazar es any palpitations, denies any syncope, presyncope, lightheadedness. Does complain of general weak ness, but no syncope. His rhythm strip was reviewed, remaining in sinus rhythm; however, intermitte nt ectopic atrial rhythm but no significant heart block was noted. PAST MEDICAL HISTORY: History of ulcerative colitis, status post colectomy many years ago, J-pouch placement, history of stage IV lipoma, history of liver mass, abnormally elevated LFTs, anemia. SOCIAL HISTORY: Does not smoke. FAMILY HISTORY: No reported coronary artery disease. ALLERGIES: No reported allergies. MEDICATIONS: Medical reconciliation, personally reviewed. REVIEW OF SYSTEMS: He has lost 30 to 40 pounds over the past few months. PHYSICAL EXAMINATION: VITAL SIGNS: Temperature 98, heart rate of 44, blood pressure 93/55. HEENT: Normocephalic, atraumatic. Thin, cachectic looking gentleman in no acute distress. Pupils are equal. CARDIOVASCULAR: Bradycardic, systolic murmur. PULMONARY: Anteriorly with no wheezes. GASTROINTESTINAL: Status multiple stents, status post scars from previous surgeries. Otherwise, no rebound or guarding. EXTREMITIES: Positive lower extremity edema. NEUROLOGIC: Awake and alert, responds appropriately. PSYCHIATRIC: Appears to be calm now. DIAGNOSTIC DATA: EKG was personally reviewed from today which showed ectopic atrial rhythm consiste nt with atrial bradycardia. Echocardiogram done yesterday shows ejection fraction of 60%, trace to mild aortic insufficiency. PA pressure was 18 mmHg. LABORATORY: WBC of 11.2, hemoglobin 8.7, platelet 634. Sodium 135, potassium 4.1, BUN of 13, creat inine 0.62, glucose 165. Troponin less than 0.012. Albumin is 2.4, AST of 105, alkaline phosphatas e at 1245. Albumin is 2.2, CA19-9 is 1420, CA-125 is 5408. TSH is 0.234. Free T4 1.41. ASSESSMENT AND PLAN: 1. Asymptomatic marked bradycardia with no evidence of heart block intermittently with ectopic atri al bradycardia. 2. Lymphoma. 3. ____ status post colectomy. 4. Chronic primary sclerosing cholangitis or cholangiocarcinoma. 5. Malnutrition. 6. Elevated LFTs. 7. Obstructive jaundice. RECOMMENDATIONS: Will monitor in telemetry for the time being. Follow up with GI and surgical maria eugenia mmendations. His bradycardia is most likely related to his severe malnutrition. As long as he adi ins asymptomatic, no pacemaker is indicated unless he has other signs of high risk features such as high degrees of AV block. So far no evidence of such is seen on monitor on telemetry. Nutritional support to be continued as well. Antibiotic as per internal medicine. Dictated By: POOJA CHAVEZ MD AV/NTS Conf#: [id number] DID#: [id number] CC: RAMIREZ SANTOS MD;*EndCC*
--- NOTE | 2017-04-01 20:23 | RADRPT ---
Vent Rate: 39 bpm RR Interval: 0 msec PA Interval: 108 msec QRS Duration: 104 msec QT Interval: 512 msec QTC Interval: 412 msec P-R-T [place]: -88 - 81 - 74 degrees Unusual P axis and short PA, probable ectopic atrial bradycardia Early repolarization Abnormal ECG Electronically Signed By: Fredo Tiwari [id number]
--- NOTE | 2017-04-01 20:53 | CONS ---
[facility] INITIAL INPATIENT CONSULTATION NOTE DATE OF CONSULTATION: 04/01/2017 PLACE OF SERVICE: [facility] 5th floor. ASSESSMENT AND PLAN: A very pleasant but unfortunate 61-year-old gentleman with a history of inflammatory bowel disease status post total proctocolectomy and ileoanal pouch surgery as well as history of known primary sclerosing cholangitis since 2008, status post multiple stenting procedures throughout the years, who unfortunately was diagnosed with what now appears to be a stage III/ stage IV hilar cholangiocarcinoma with intrahepatic tumor presence and isolation of the internal biliary system up to the second division branching of the biliary system. His clinical picture is consistent with that of bile duct obstruction as well as the rising CA 19-9, which has a component of bile duct obstruction as well as advancing tumor. There is certainly no indication for acute surgical intervention and surgical intervention in this situation is contraindicated due to various reasons, most important of which is unresectable disease as well as multiple comorbidities, which puts the risk of an operation at extremely high levels. Contributing to this is possible early cirrhosis as the patient likely has do to his PSC and was commented on the operative note from [facility]. There are, however, options of local management, which could potentially increase the patient's quality of life in the form of controlling the bile with either external drainage or hopefully be able to internally drain if we can find the anastomosis with this procedure. It would also open the potential door for further treatment of cancer in the form of local versus systemic therapy once the patient's cholangitis and hyperbilirubinemia and liver dysfunction have improved. I spent more than 60 minutes in consultation time at bedside reviewing all of the above in detail with multiple repetitions of the descriptions given the patient's lack of adequate understanding during the initial presentation. I also answered all the patient's questions and the family's questions to the best of my ability. I did give them the option of transferring to [facility] and having his care in that institution. The patient and family would like to discuss this further and, as soon as they make a decision, we will either make a recommendation for transfer versus going on with the percutaneous drainage. I was very clear with them that the drain could be permanent. Also, that the patient will likely need more than one drain , likely 1 on both sides, and perhaps even multiple drains on both sides until we can adequately control the flow of bile. The chance that this could be internalized and drains later on taken out is there; however, with that as a small chance. I believe that after extensive discussion with the patient, he and his family appeared to understand and agreed with the plan. With above assessment, I recommend the followin. Continue aggressive medical management to include broad-spectrum antimicrobials for possible cholangitis. 2. Aggressive nutritional support with increased oral intake. 3. Follow up with the patient and family and, if they decide to continue their care here at [facility], for us to order percutaneous drainage procedure to start with a drain placement in the right lobe of the liver and careful followup in house. Note that this process will likely take a number of days to weeks of inpatient care prior to potential ability to discharge the patient, most likely to a rehabilitation center. 4. Check labs. 5. I will continue to follow the patient along with you. Thank you again for allowing me to participate in the care of this very pleasant gentleman and his wonderful family. If there are any questions, please feel free to contact me at [phone]. TOTAL VISIT TIME: Included approximately 120 minutes, more than 60 minutes of which was spent physically at bedside, discussing issues in detail with the patient and family and answering multiple questions. Updated clinical summary: A very pleasant 61-year-old gentleman with significant past medical history including ulcerative colitis status post total proctocolectomy and ileoanal pouch as well as a number of other medical issues who was diagnosed with cholangiocarcinoma and underwent a radical bile duct resection that included extrahepatic bile duct and gallbladder at [facility], 2016, with final diagnosis of cholangiocarcinoma with 1/8 lymph node positive disease as well as low-grade dysplasia and carcinoma in situ at the proximal margin. The patient was readmitted to [facility] after a 2 month hospital stay at [facility] with increasing weakness, jaundice, and diffuse body pain. COMORBIDITIES: 1. History of ulcerative colitis status post total proctocolectomy and ileoanal pouch. 2. Diagnosis of primary sclerosing cholangitis since 2008 being cared for at various institutions such as [facility] and by various physicians with involvement of Dr. Krystian Connolly for hepatology. 3. History of hospitalization at [facility] for bile duct obstruction from mid December to early March with bile duct excision with cholecystectomy with removal of extrahepatic bile duct and Isabell-en-Y hepaticojejunostomy on 07/2017 with the above-mentioned pathology. 4. Chronic back pain, mainly lower, for the last 5 to 6 years. 5. Significant weight loss of more than 20 to 30 pounds over the last 6 months. 6. No history of lymphoma (note that this was reported erroneously in the patient's chart. The patient does not report any history of lymphoma in the past and that is also corroborated by the patient's family). 7. Status post multiple ERCPs and stenting in the past since 2005. 8. Elevated alpha fetoprotein 1.8 in 12/2016. 9. Elevated CA19-9 of 272.9 in 12/2016. 10. Normal CEA at 1.6 on 01/14/2017. 11. Status post sigmoidoscopy, 01/16/2017, showing moderate pouchitis and negative for dysplasia or malignancy. DATE OF ADMISSION: 03/30/2017 HISTORY OF PRESENT ILLNESS: The patient is a very pleasant but unfortunate 61- year-old gentleman with above-mentioned history whom we are kindly asked to consult regarding management of his biliary system. He reported having lessened abdominal pain since surgery, but ongoing issues with back pain. Currently, he is not nauseous and has had decreased appetite with above- mentioned weight loss present for the last number of months. He does have frequent bowel movements and that is normal for him after his operation in 2005. He does not report any blood in the stool or urine. ALLERGIES: NO KNOWN DRUG ALLERGIES. HOME MEDICATIONS: Include: 1. Lexapro. 2. ____. 3. B16. 4. Premier Digest. 5. Quantum HCL. For inpatient medications, please refer to detailed report on the electronic medical records. SOCIAL HISTORY: The patient is currently retired/disabled and unable to work. He does not report any significant smoking, drinking, or intravenous drug use currently, and also does not endorse a heavy history of such in the past. The [place] and he has an ex- as well as a friend for the last 45 years who are his main social support and present during the interview. FAMILY HISTORY: There is history of malignancy in the family as well as possible dementia. REVIEW OF SYSTEMS: Other than the above-mentioned, there are no other pertinent positives or pertinent negatives in a complete 14-point review of systems. PHYSICAL EXAMINATION: GENERAL: The patient appears to be a very pleasant gentleman, appearing older than stated age, sitting on a bedpan commode in no acute distress and comfortable. BMI 17.1. He is cachectic appearing and obviously jaundiced. VITAL SIGNS: Include temperature of 98.0, blood pressure 93/55, pulse 44, respiratory rate 18, pulse oximetry 99% on room air. HEENT: Normocephalic and atraumatic. Extraocular muscles and hearing are grossly intact bilaterally and symmetrically. Sclerae are nonicteric. Oral cavity is clear; oral mucosa appeared to be pink and moist. Dentition: fair to poor. NECK: Supple. There is no lymphadenopathy or JVD. There is no submental, submandibular or supraclavicular lymphadenopathy. CHEST: Rises symmetrically with each breath; patient is breathing comfortably. There are no audible wheezes, rales or rhonchi on the gross exam. HEART: Pulse is regular and palpable on the left wrist. Capillary refill was normal. Carotid pulses are palpable bilaterally and symmetrically in the neck. EXTREMITIES: Lower extremities contain no pitting edema around the ankles bilaterally and symmetrically. ABDOMEN: Shows a well-healed midline incision as well as a right lower transverse incision, both of which are from his time of colectomy and his temporary ostomy that he had. He also has a right upper quadrant subcostal incision that appears to be intact without any evidence of erythema, edema, discharge, or hernia. There is mild tenderness to palpation diffusely across the upper abdomen, but no rebound or guarding. His skin appears to be jaundiced. There is no evidence of organomegaly, caput medusae, engorged subcutaneous veins, or ascites. SKIN: Appears to be pink and feels warm to touch. NEUROLOGIC: Awake, alert, and follows commands appropriately. LABORATORY DATA: White blood cell count 11.2, down from 21.1 on admission, hemoglobin 8.7, platelets 634. Electrolytes are normal. CO2 of 23, creatinine 0.62. Total bilirubin 2.4, alkaline phosphatase 1245, AST 105, ALT 102. Albumin 2.2 and that is after hydration. CEA 2.0, CA 19-9 of 1420, CA 125 of 54.8. His initial bilirubin on admission was 4.8. INR 1.5. Urinalysis showed 3+ bilirubin, but negative leukocyte esterase or nitrite. Blood cultures from 03/30/2017 were negative. IMAGING: The patient had an abdominal and pelvic CT on 03/30/2017 without contrast that showed extensive postsurgical changes involving the bowel loops throughout the abdominal pelvic cavity including the right upper quadrant, small bowel, and the distal sigmoid colon and rectum. There was also significant intrahepatic biliary dilatation with increased density in the central periportal region of the liver. Underlying infiltrative mass lesion should be considered. Further evaluation with liver MRI with contrast was recommended for more complete assessment. Also, scattered benign chronic changes seen elsewhere throughout the study. The patient underwent an MRI of the abdomen on 03/31/2017 without contrast that showed a lobular area of elevated T2 signal seen in the central liver worrisome for a mass, possibly cholangiocarcinoma, and this mass could possibly be causing prominent intrahepatic biliary ductal dilatation of both the left and right intrahepatic biliary ducts with central loss of signal at the area of the mass. There is prominent hepatomegaly seen with findings suggestive of portal hypertension. Mild ascites was seen. Surgical changes of the bowels seen with no evidence of obstruction. There was a fecal filled colon mentioned as well. Atherosclerotic disease was noted. Note that I personally reviewed all the above images and I agree in general with their overall reported findings with the exception of lack of obvious colon and evidence of infiltrative mass in the central portion of the liver causing possible involvement of the second order branches of the biliary system essentially creating isolated anterior and posterior sectoral biliary systems on the right and isolated segment 4 and 2/3 on the left. Dictated By: ZOE UGALDE/JASMYNE Conf#: [id number] DID#: [id number] CC: RENAE PRUITT MD;*EndCC* MTDD
[2017-04-02] VITALS (15 sets, daily range): BP systolic 99–119; BP diastolic 56–67; PULSE 30–80; RESP 17–18
[2017-04-02] MEDS: VANCOMYCIN 1 GM in NS 250 ML IVPB SCH ×2 (00:24→13:54)
[2017-04-02] MEDS: PIPER-TAZO 3.375 GM IV (PMX) 100 ML IVPB SCH ×4 (06:09→23:43)
[2017-04-02] MEDS: METHYLPREDNISOLONE 125 MG INJ IV SCH ×3 (06:10→22:15)
[2017-04-02] MEDS: PANTOPRAZOLE 40 MG INJ IV SCH (06:10)
[2017-04-02 07:45] LABS: INR 1.19; PARTIAL THROMBOPLASTIN TIME 32.3 Sec (25.0-35.0); PROTIME 15.2 Sec (12.2-14.2); PT RATIO 1.2
[2017-04-02 07:51] LABS: ALBUMIN 2.2 g/dl (3.3-4.9)
[2017-04-02 07:52] LABS: POTASSIUM 3.8 mmol/L (3.5-5.1)
[2017-04-02 07:54] LABS: ALBUMIN/GLOBULIN RATIO 0.45; BILIRUBIN,DIRECT 0.7 mg/dl (0.00-0.20); BILIRUBIN,INDIRECT 0.7 mg/dl (0-1.1); BILIRUBIN,TOTAL 1.4 mg/dl (0.2-1.3); CREATININE 0.57 mg/dl (0.61-1.24)
[2017-04-02 07:55] LABS: CALCIUM 8.6 mg/dl (8.4-10.2)
[2017-04-02 08:16] LABS: ADD SCAN DIFF NO
[2017-04-02 08:21] LABS: BASOPHILS % 0.1 % (0.0-2.0); HEMATOCRIT 26.2 % (42.0-52.0); HEMOGLOBIN 8.5 g/dl (14.0-18.0); LYMPHOCYTES # 1.1 10^3/ul (0.8-2.9); LYMPHOCYTES % 8.8 % (15.0-51.0); MEAN CORPUSCULAR HEMOGLOBIN 29.6 pg (29.0-33.0); MEAN CORPUSCULAR HGB CONC 32.4 g/dl (32.0-37.0); MEAN CORPUSCULAR VOLUME 91.3 fl (82.0-101.0); MONOCYTE # 0.2 10^3/ul (0.3-0.9); MONOCYTES % 1.9 % (0.0-11.0); NEUTROPHIL # 11.2 10^3/ul (1.6-7.5); NEUTROPHILS % 87.6 % (39.0-77.0); RED BLOOD COUNT 2.87 10^6/ul (4.70-6.10); RED CELL DISTRIBUTION WIDTH 17.8 % (11.5-14.5); WHITE BLOOD COUNT 12.8 10^3/ul (4.8-10.8)
[2017-04-02 08:26] LABS: PLATELET COUNT 652 10^3/UL (140-415)
[2017-04-02] MEDS: ESCITALOPRAM 10 MG TAB PO SCH (10:08)
[2017-04-02] MEDS: SOD CHLORIDE 0.9% 1,000 ML IV SCH ×2 (10:11→17:27)
--- NOTE | 2017-04-02 10:19 | PN ---
DATE: 04/02/2017 CARDIOLOGY FOLLOWUP SUBJECTIVE: Discussed with the staff. Rhythm strip was reviewed. The patient remains in marked si nus bradycardia. Heart rate went as low as 30. This happened overnight during the sleep time. The patient denies any symptoms to me. He denies any chest pain, shortness of breath, palpitations, di zziness, syncope or presyncope to me. MEDICATIONS: Reviewed as per medication reconciliation, personally reviewed. PHYSICAL EXAMINATION: VITAL SIGNS: Temperature 97.5, heart rate of 40, blood pressure 107/60, respiratory rate of 16, sat urating 99%. HEENT: Normocephalic, atraumatic. Thin, cachectic-looking gentleman. No acute distress. Pupils a re equal. CARDIOVASCULAR: Bradycardic. PULMONARY: With no wheezes heard anteriorly. GASTROINTESTINAL: Soft, mild tenderness to palpation, status post previous surgical scars. EXTREMITIES: No significant edema. NEUROLOGIC: Awake and alert. PSYCHIATRIC: Anxious. LABORATORY DATA: Sodium 140, potassium 3.8, BUN of 16, creatinine 0.57, glucose 146. AST 103, ALT 101, alkaline phosphatase 1291. Troponin less than 0.012. Albumin is 2.2. INR 1.19. ASSESSMENT AND PLAN: 1. Sick sinus syndrome with marked sinus bradycardia; however, as far as the patient tells me, ther e are no associated symptoms with those. 2. Lymphoma, cholangiocarcinoma and sclerosing cholangitis. 3. Status post abdominal surgeries. 4. Severe malnutrition. 5. Elevated liver function tests. 6. Jaundice. RECOMMENDATIONS: Recommend nutritional support. There is no indication for pacemaker as long as th e patient remains asymptomatic and there is no evidence of any high-degree AV block noted. However, if the patient becomes symptomatic with his bradycardia, we will consider pacemaker. Follow up wit h surgical recommendations. Dictated By: POOJA CHAVEZ MD AV/NTS Conf#: [id number] DID#: [id number] CC: HUMZA JAIME MD;*EndCC*
--- NOTE | 2017-04-02 14:07 | PN ---
Date/Time of Note Date/Time of Note DATE: 04/02/17 TIME: 14:05 Assessment/Plan VTE Prophylaxis VTE Prophylaxis Intervention: SCD's Lines/Catheters IV [facility] Peripheral IV Urinary Cath still in place: No Assessment/Plan Assessment/Plan Obstructive jaundice S/P bile duct excision with cholecystectomy excision pf extrahepatic duct,and Isabell en Y hepaticojejuniostomy MRI 03/31/2017 There is a lobular area of elevated T2 signal is seen in the central liver worrisome for a mass possibly cholangiocarcinoma and this causes prominent intrahepatic biliary ductal dilatation of both the left and right intrahepatic biliary ducts with central loss of signal at the area of the mass. Prominent hepatomegaly is seen with findings suggestive for portal hypertension. Mild ascites is seen. Surgical changes are seen of the bowel with no evidence of an obstruction. There is a fecal filled colon * History of proctocolectomy with J pouch 2005 * Intractable pain Plan * Continue present management * pain control * consider biliary drainage by interventional radiology Subjective 24 Hr Interval Summary Free Text/Dictation * Course reviewed with RN * patient seen and examined * No abdominal pain ,afebrile Exam/Review of Systems Vital Signs Vitals Vital Signs Date Time Temp Pulse Resp B/P Pulse Ox O2 Delivery O2 Flow Rate FiO2 04/02/17 12:41 43 04/02/17 11:19 98.7 18 110/67 95 04/01/17 06:45 Room Air 03/30/17 17:29 2 Intake and Output 04/01/17 04/01/17 04/02/17 15:00 23:00 07:00 Intake Total 100 ml 1200 ml 1200 ml Balance 100 ml 1200 ml 1200 ml Exam Constitutional: alert Eyes: icteric Neck: non-tender, supple Respiratory: clear to auscultation, normal air movement Cardiovascular: nl pulses, regular rate and rhythm Gastrointestinal: bowel sounds, non-tender, soft Musculoskeletal: nl extremities to inspection Extremities: normal pulses Results Result Diagram: 04/02/17 0657 04/02/17 0637 Results 24 hrs Laboratory Tests Test 04/01/17 14:15 04/01/17 19:40 04/02/17 06:37 04/02/17 06:57 Troponin I < 0.012 < 0.012 Prothrombin Time 15.2 #H Prothrombin Time Ratio 1.2 INR International Normalized Ratio 1.19 Activated Partial Thromboplast Time 32.3 Sodium Level 140 Potassium Level 3.8 Chloride Level 107 Carbon Dioxide Level 24 Anion Gap 13 Blood Urea Nitrogen 16 Creatinine 0.57 L Glucose Level 146 Calcium Level 8.6 Total Bilirubin 1.4 H Direct Bilirubin 0.70 #H Indirect Bilirubin 0.7 Aspartate Amino Transf (AST/SGOT) 103 H Alanine Aminotransferase (ALT/SGPT) 101 H Alkaline Phosphatase 1291 H Total Protein 7.0 Albumin 2.2 L Globulin 4.80 H Albumin/Globulin Ratio 0.45 White Blood Count 12.8 H Red Blood Count 2.87 L Hemoglobin 8.5 L Hematocrit 26.2 L Mean Corpuscular Volume 91.3 Mean Corpuscular Hemoglobin 29.6 Mean Corpuscular Hemoglobin Concent 32.4 Red Cell Distribution Width 17.8 H Platelet Count 652 H Mean Platelet Volume 9.0 Neutrophils % 87.6 H Lymphocytes % 8.8 L Monocytes % 1.9 Eosinophils % 0.0 Basophils % 0.1 Nucleated Red Blood Cells % 0.0 Neutrophils # 11.2 H Lymphocytes # 1.1 Monocytes # 0.2 L Eosinophils # 0.0 Basophils # 0.0 Nucleated Red Blood Cells # 0.0 Medications Medications Current Medications Ondansetron HCl (Zofran Inj) 4 mg Q6H PRN IV NAUSEA AND/OR VOMITING; Start at 19:30 Acetaminophen (Tylenol Tab) 650 mg Q6H PRN PO PAIN LEVEL 1-3 OR FEVER; Start at 19:30 Docusate Sodium (Colace) 100 mg Q12H PRN PO CONSTIPATION; Start 03/30/17 at 19: 30 Magnesium Hydroxide (Milk Of Mag) 30 ml DAILY PRN PO CONSTIPATION; Start at 19:30 Sodium Biphosphate/ Sodium Phosphate (Fleet Enema) 133 ml DAILY PRN ME CONSTIPATION; Start 03/30/17 at 19:30 Pantoprazole (Protonix Iv) 40 mg DAILY@06 IV Last administered on 04/02/17 06: 10; Admin Dose 40 MG; Start 03/31/17 at 06:00 Lorazepam 0.5 mg 0.5 mg Q6H PRN IV ANXIETY; Start 03/30/17 at 19:30 Sodium Chloride 1,000 ml @ 100 mls/hr Q10H IV Last administered on 5/16/17at 10:11; Admin Dose 100 MLS/HR; Start 03/30/17 at 19:27 Piperacillin Sod/ Tazobactam Sod (Zosyn 3.375gm/ 100 ml (Pmx)) 100 ml @ 200 mls /hr Q6 IVPB Last administered on 04/02/17 12:50; Admin Dose 200 MLS/HR; Start 03/31/17 at 00:00 Vancomycin HCl (Vanco Iv Per Pharmacy) VANCOMYCIN PER PHARMACY NOTE XX ; Start 03/30/17 at 19:30 Hydralazine HCl (Apresoline) 10 mg Q6H PRN IV ELEVATED BLOOD PRESSURE; Start at 19:30 Nitroglycerin (Nitroglycerin (Sl Tab) 0.4 Mg) 1 tab Q5M PRN SL ANGINA; Start at 19:30 Escitalopram Oxalate (Lexapro) 10 mg DAILY PO Last administered on 04/02/17 10 :08; Admin Dose 10 MG; Start 03/31/17 at 09:00 Hydromorphone HCl (Dilaudid CABLE STRANDER) MG/HR CONTINUOUS R... Q4PCA IV Last administered on 03/31/17 15:09; Admin Dose 6 MG; Start 03/31/17 at 13:30 Methylprednisolone Sodium Succinate 60 mg 60 mg Q8 IV Last administered on 04/02 06:10; Admin Dose 60 MG; Start 03/31/17 at 14:00 Vancomycin HCl (Vancocin) 250 ml @ 125 mls/hr Q12H IVPB Last administered on 13:54; Admin Dose 125 MLS/HR; Start 04/01/17 at 12:30 BRAD PRADO MD April 02, 2017 14:07
--- NOTE | 2017-04-02 16:44 | PN ---
Date/Time of Note Date/Time of Note DATE: 04/02/17 TIME: 16:41 Assessment/Plan VTE Prophylaxis VTE Prophylaxis Intervention: SCD's Lines/Catheters IV Catheter Type (from Nrs): Peripheral IV Urinary Cath still in place: No Assessment/Plan Assessment/Plan 1. Obstructive jaundice. Stable, MRI showed recurrent of tumour,Sp hepatobiliary consult 2. 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 currenlty with recurrent of tumour 3. Chronic Crohn's diseasestatus post total proctocolectomy with J-pouch creation 2005. 4. Chronic primary sclerosing cholangitis w cholangiocarcinoma. Needs advanced care planning evaluated. Poor prognosis. Performance status questionable at this time for chemotherapy & bilirubin needs some improvement. 5. Severe symptomatic bradycardia with HR down to 40s 7. s/p bd excision w cholecystectomy, excision of extrahepatic cbd and Isabell-en -Y hepaticojejunostomy. 8. Failure to thrive 9. Anemia 10. Reactive thrombocytosis 11. Dyslipidemia. Tele monitoring, Troponin serially has been negative so far Cardiology has been following pt is advised to minimize his pain meds use S/p hepatobiliary consult has been following for pain management Exam/Review of Systems Vital Signs Vitals Vital Signs Date Time Temp Pulse Resp B/P Pulse Ox O2 Delivery O2 Flow Rate FiO2 04/02/17 16:15 40 04/02/17 15:51 98.7 18 106/56 100 04/01/17 06:45 Room Air 03/30/17 17:29 2 Intake and Output 04/01/17 04/01/17 04/02/17 15:00 23:00 07:00 Intake Total 100 ml 1200 ml 1200 ml Balance 100 ml 1200 ml 1200 ml Results Result Diagram: 04/02/17 0657 04/02/17 0637 Results 24 hrs Laboratory Tests Test 04/01/17 19:40 04/02/17 06:37 04/02/17 06:57 Troponin I < 0.012 Prothrombin Time 15.2 #H Prothrombin Time Ratio 1.2 INR International Normalized Ratio 1.19 Activated Partial Thromboplast Time 32.3 Sodium Level 140 Potassium Level 3.8 Chloride Level 107 Carbon Dioxide Level 24 Anion Gap 13 Blood Urea Nitrogen 16 Creatinine 0.57 L Glucose Level 146 Calcium Level 8.6 Total Bilirubin 1.4 H Direct Bilirubin 0.70 #H Indirect Bilirubin 0.7 Aspartate Amino Transf (AST/SGOT) 103 H Alanine Aminotransferase (ALT/SGPT) 101 H Alkaline Phosphatase 1291 H Total Protein 7.0 Albumin 2.2 L Globulin 4.80 H Albumin/Globulin Ratio 0.45 White Blood Count 12.8 H Red Blood Count 2.87 L Hemoglobin 8.5 L Hematocrit 26.2 L Mean Corpuscular Volume 91.3 Mean Corpuscular Hemoglobin 29.6 Mean Corpuscular Hemoglobin Concent 32.4 Red Cell Distribution Width 17.8 H Platelet Count 652 H Mean Platelet Volume 9.0 Neutrophils % 87.6 H Lymphocytes % 8.8 L Monocytes % 1.9 Eosinophils % 0.0 Basophils % 0.1 Nucleated Red Blood Cells % 0.0 Neutrophils # 11.2 H Lymphocytes # 1.1 Monocytes # 0.2 L Eosinophils # 0.0 Basophils # 0.0 Nucleated Red Blood Cells # 0.0 Medications Medications Current Medications Ondansetron HCl (Zofran Inj) 4 mg Q6H PRN IV NAUSEA AND/OR VOMITING; Start at 19:30 Acetaminophen (Tylenol Tab) 650 mg Q6H PRN PO PAIN LEVEL 1-3 OR FEVER; Start at 19:30 Docusate Sodium (Colace) 100 mg Q12H PRN PO CONSTIPATION; Start 03/30/17 at 19: 30 Magnesium Hydroxide (Milk Of Mag) 30 ml DAILY PRN PO CONSTIPATION; Start at 19:30 Sodium Biphosphate/ Sodium Phosphate (Fleet Enema) 133 ml DAILY PRN [place] CONSTIPATION; Start 03/30/17 at 19:30 Pantoprazole (Protonix Iv) 40 mg DAILY@06 IV Last administered on 04/02/17t 06: 10; Admin Dose 40 MG; Start 03/31/17 at 06:00 Lorazepam 0.5 mg 0.5 mg Q6H PRN IV ANXIETY; Start 03/30/17 at 19:30 Sodium Chloride 1,000 ml @ 100 mls/hr Q10H IV Last administered on 04/02/17t 10:11; Admin Dose 100 MLS/HR; Start 03/30/17 at 19:27 Piperacillin Sod/ Tazobactam Sod (Zosyn 3.375gm/ 100 ml (Pmx)) 100 ml @ 200 mls /hr Q6 IVPB Last administered on 04/02/17 12:50; Admin Dose 200 MLS/HR; Start 03/31/17 at 00:00 Vancomycin HCl (Vanco Iv Per Pharmacy) VANCOMYCIN PER PHARMACY NOTE XX ; Start 03/30/17 at 19:30 Hydralazine HCl (Apresoline) 10 mg Q6H PRN IV ELEVATED BLOOD PRESSURE; Start at 19:30 Nitroglycerin (Nitroglycerin (Sl Tab) 0.4 Mg) 1 tab Q5M PRN SL ANGINA; Start at 19:30 Escitalopram Oxalate (Lexapro) 10 mg DAILY PO Last administered on 04/02/17 10 :08; Admin Dose 10 MG; Start 03/31/17 at 09:00 Hydromorphone HCl (Dilaudid PEDIATRIC PHYSIATRIST) MG/HR CONTINUOUS R... Q4PCA IV Last administered on 03/31/17 15:09; Admin Dose 6 MG; Start 03/31/17 at 13:30 Methylprednisolone Sodium Succinate 60 mg 60 mg Q8 IV Last administered on 04/02 16:18; Admin Dose 60 MG; Start 03/31/17 at 14:00 Vancomycin HCl (Vancocin) 250 ml @ 125 mls/hr Q12H IVPB Last administered on 13:54; Admin Dose 125 MLS/HR; Start 04/01/17 at 12:30 DWIGHT NEAL MD April 02, 2017 16:43
--- NOTE | 2017-04-02 16:50 | PN ---
Date/Time of Note Date/Time of Note DATE: 04/02/17 TIME: 16:44 Assessment/Plan Lines/Catheters IV Catheter Type (from Nrs): Peripheral IV Andrews in Place (from Nrs): No Assessment/Plan Assessment/Plan [facility] Progress Note Date of Service: 04/02/17 Today's Impression & Plan: Overall stable. Agreed with IR intervention. Answered all questions. With above assessment, I've recommended the following for today: 1. Discussed percutaneous drainage procedure with Dr. Grijalva and will order image -guided drain placement in the right lobe of the liver 2. Aggressive nutritional support with increased oral intake. 3. Continue aggressive medical management to include broad-spectrum antimicrobials for possible cholangitis. 4. Check labs. 5. I will continue to follow the patient along with you. Thank you again for your great care of this very pleasant patient and wonderful family. If there are any questions, please feel free to call me at [phone]. TOTAL VISIT TIME: 20 minutes of which more than half was spent in [id number] discussion with the patient, possibly including family, as well as coordination of care between multiple physicians and providers. Disclaimer: Inadvertent spelling or grammatical errors are likely due to EHR/ dictation software use and do not reflect on the overall quality of patient care. Updated clinical summary: A very pleasant 61-year-old gentleman with significant past medical history including ulcerative colitis status post total proctocolectomy and ileoanal pouch as well as a number of other medical issues who was diagnosed with cholangiocarcinoma and underwent a radical bile duct resection that included extrahepatic bile duct and gallbladder at [facility], 2016, with final diagnosis of cholangiocarcinoma with 1/8 lymph node positive disease as well as low-grade dysplasia and carcinoma in situ at the proximal margin. The patient was readmitted to [facility] after a 2 month hospital stay at [facility] with increasing weakness, jaundice, and diffuse body pain. COMORBIDITIES: 1. History of ulcerative colitis status post total proctocolectomy and ileoanal pouch. 2. Diagnosis of primary sclerosing cholangitis since 2008 being cared for at various institutions such as [facility] and by various physicians with involvement of Dr. Krystian Adkins for hepatology. 3. History of hospitalization at [facility] for bile duct obstruction from mid December to early March with bile duct excision with cholecystectomy with removal of extrahepatic bile duct and Isabell-en-Y hepaticojejunostomy on 07/2017 with the above-mentioned pathology. 4. Chronic back pain, mainly lower, for the last 5 to 6 years. 5. Significant weight loss of more than 20 to 30 pounds over the last 6 months. 6. No history of lymphoma (note that this was reported erroneously in the patient's chart. The patient does not report any history of lymphoma in the past and that is also corroborated by the patient's family). 7. Status post multiple ERCPs and stenting in the past since 2005. 8. Elevated alpha fetoprotein 1.8 in 12/2016. 9. Elevated CA19-9 of 272.9 in 12/2016. 10. Normal CEA at 1.6 on 01/14/2017. 11. Status post sigmoidoscopy, 01/16/2017, showing moderate pouchitis and negative for dysplasia or malignancy. Subjective: No major events or complaints; no major abd pain; back pain reportedly under reasonable control with medications; no n/v/d; no sob or cp; + flatus; + BM; minimal activity Objective: Vitals: See below Exam: GENERAL: On exam, the patient was laying in bed and appeared to be comfortable and in no acute distress. ABDOMEN: Soft, nontender and nondistended. Incisions are clean, dry and intact without any evidence of erythema, edema, discharge, or hernia. There are no peritoneal signs or guarding. SKIN: Skin appears to be jaundiced and feels warm to touch. NEUROLOGIC: Patient is awake, alert, and follows commands appropriately. Exam/Review of Systems Vital Signs Vitals Vital Signs Date Time Temp Pulse Resp B/P Pulse Ox O2 Delivery O2 Flow Rate FiO2 04/02/17 16:15 40 04/02/17 15:51 98.7 18 106/56 100 04/01/17 06:45 Room Air 03/30/17 17:29 2 Intake and Output 04/01/17 04/01/17 04/02/17 15:00 23:00 07:00 Intake Total 100 ml 1200 ml 1200 ml Balance 100 ml 1200 ml 1200 ml Results Result Diagram: 04/02/17 0657 04/02/17 0637 ZOE GOYAL M.D. April 02, 2017 16:50
--- NOTE | 2017-04-02 21:14 | CONS ---
Date/Time of Note Date/Time of Note DATE: 04/02/17 TIME: 21:12 Assessment/Plan Assessment/Plan Chief Complaint/Hosp Course A/P 1. 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 postop , NOW WITH Metastatic dis in the liver lobular area of elevated T2 signal is seen in the central liver worrisome for a mass possibly cholangiocarcinoma and this causes prominent intrahepatic biliary ductal dilatation of both the left and right intrahepatic biliary ducts with central loss of signal at the area of the mass. C/W recurrent METASTATIC tumor CT and MRI- REVIEWED TUMOR MARKERS : ca [id number] [id number] , most likely 2 to tumor progression hepatobiliary consult- D/W D LEÓN PT AGREED FOR percutaneous drainage procedure with Dr. Grijalva image-guided drain placement in the right lobe of the liver- ORDERED 2. Obstructive jaundice. Stable, ro stricture/recurrent tumor. MRCP/GI eval, hepatobiliary surgery consult- REVIEWED surgical consult Dr Anderson biliary drainage by interventional radiology 3. Chronic Crohn's disease status post total proctocolectomy with J-pouch creation 2005. 4. Chronic primary sclerosing cholangitis w cholangiocarcinoma. Needs advanced care planning evaluated. Poor prognosis. Performance status questionable at this time for chemotherapy & bilirubin needs some improvement. 5. Malnutrition; oral feeds/Megace vs TPN 6. Active pouchitis? 7. Postop day 16 bd excision w cholecystectomy, excision of extrahepatic cbd and Isabell-en-Y hepaticojejunostomy. 8. Failure to thrive, may need snf 9. Anemia 10. Reactive thrombocytosis 11. Dyslipidemia. Problems: Consultation Date/Type/Reason Admit Date/Time March 30, 2017 at 18:53 Initial Consult Date 03/31/17 Type of Consultation: [facility] Referring Provider: HUMZA JAIME MD 24 HR Interval Summary Free Text/Dictation ALL NOTED PT AGREED FOR percutaneous drainage procedure with Dr. Grijalva image-guided drain placement in the right lobe of the liver- ORDERED SEEN BY DR ALVA Exam/Review of Systems Vital Signs Vitals Vital Signs Date Time Temp Pulse Resp B/P Pulse Ox O2 Delivery O2 Flow Rate FiO2 04/02/17 20:14 45 04/02/17 20:03 98.4 18 99/58 97 04/01/17 06:45 Room Air 03/30/17 17:29 2 Intake and Output 04/01/17 04/01/17 04/02/17 14:59 22:59 06:59 Intake Total 100 ml 1200 ml 1200 ml Balance 100 ml 1200 ml 1200 ml Exam Constitutional: alert, oriented, very thin, slightly tired, jaundice Psych: nl mood/affect Head: normocephalic Eyes: EOMI, sclera anicteric, nl lids ENMT: nl external ears & nose, nl lips & teeth, nl nasal mucosa & septum Respiratory: clear to auscultation, normal air movement Cardiovascular: regular rate and rhythm Gastrointestinal: soft, diffuse abdominal tenderness Musculoskeletal: nl extremities to inspection Neurological: MANAGING DIRECTOR ATLAS II-XII intact Results Result Diagram: 04/02/17 0657 04/02/17 0637 Results 24 hrs Laboratory Tests Test 04/02/17 06:37 04/02/17 06:57 Prothrombin Time 15.2 #H Prothrombin Time Ratio 1.2 INR International Normalized Ratio 1.19 Activated Partial Thromboplast Time 32.3 Sodium Level 140 Potassium Level 3.8 Chloride Level 107 Carbon Dioxide Level 24 Anion Gap 13 Blood Urea Nitrogen 16 Creatinine 0.57 L Glucose Level 146 Calcium Level 8.6 Total Bilirubin 1.4 H Direct Bilirubin 0.70 #H Indirect Bilirubin 0.7 Aspartate Amino Transf (AST/SGOT) 103 H Alanine Aminotransferase (ALT/SGPT) 101 H Alkaline Phosphatase 1291 H Total Protein 7.0 Albumin 2.2 L Globulin 4.80 H Albumin/Globulin Ratio 0.45 White Blood Count 12.8 H Red Blood Count 2.87 L Hemoglobin 8.5 L Hematocrit 26.2 L Mean Corpuscular Volume 91.3 Mean Corpuscular Hemoglobin 29.6 Mean Corpuscular Hemoglobin Concent 32.4 Red Cell Distribution Width 17.8 H Platelet Count 652 H Mean Platelet Volume 9.0 Neutrophils % 87.6 H Lymphocytes % 8.8 L Monocytes % 1.9 Eosinophils % 0.0 Basophils % 0.1 Nucleated Red Blood Cells % 0.0 Neutrophils # 11.2 H Lymphocytes # 1.1 Monocytes # 0.2 L Eosinophils # 0.0 Basophils # 0.0 Nucleated Red Blood Cells # 0.0 Medications Medications Current Medications Ondansetron HCl (Zofran Inj) 4 mg Q6H PRN IV NAUSEA AND/OR VOMITING; Start at 19:30 Acetaminophen (Tylenol Tab) 650 mg Q6H PRN PO PAIN LEVEL 1-3 OR FEVER; Start at 19:30 Docusate Sodium (Colace) 100 mg Q12H PRN PO CONSTIPATION; Start 03/30/17 at 19: 30 Magnesium Hydroxide (Milk Of Mag) 30 ml DAILY PRN PO CONSTIPATION; Start at 19:30 Sodium Biphosphate/ Sodium Phosphate (Fleet Enema) 133 ml DAILY PRN [place] CONSTIPATION; Start 03/30/17 at 19:30 Pantoprazole (Protonix Iv) 40 mg DAILY@06 IV Last administered on 04/02/17 06: 10; Admin Dose 40 MG; Start 03/31/17 at 06:00 Lorazepam 0.5 mg 0.5 mg Q6H PRN IV ANXIETY; Start 03/30/17 at 19:30 Sodium Chloride 1,000 ml @ 100 mls/hr Q10H IV Last administered on 04/02/17 10:11; Admin Dose 100 MLS/HR; Start 03/30/17 at 19:27 Piperacillin Sod/ Tazobactam Sod (Zosyn 3.375gm/ 100 ml (Pmx)) 100 ml @ 200 mls /hr Q6 IVPB Last administered on 04/02/17 18:28; Admin Dose 200 MLS/HR; Start 03/31/17 at 00:00 Vancomycin HCl (Vanco Iv Per Pharmacy) VANCOMYCIN PER PHARMACY NOTE XX ; Start 03/30/17 at 19:30 Hydralazine HCl (Apresoline) 10 mg Q6H PRN IV ELEVATED BLOOD PRESSURE; Start at 19:30 Nitroglycerin (Nitroglycerin (Sl Tab) 0.4 Mg) 1 tab Q5M PRN SL ANGINA; Start at 19:30 Escitalopram Oxalate (Lexapro) 10 mg DAILY PO Last administered on 04/02/17 10 :08; Admin Dose 10 MG; Start 03/31/17 at 09:00 Hydromorphone HCl (Dilaudid RADIOLOGY TECHNOLOGIST) MG/HR CONTINUOUS R... Q4PCA IV Last administered on 03/31/17 15:09; Admin Dose 6 MG; Start 03/31/17 at 13:30 Methylprednisolone Sodium Succinate 60 mg 60 mg Q8 IV Last administered on 04/02 16:18; Admin Dose 60 MG; Start 03/31/17 at 14:00 Vancomycin HCl (Vancocin) 250 ml @ 125 mls/hr Q12H IVPB Last administered on t 13:54; Admin Dose 125 MLS/HR; Start 04/01/17 at 12:30 KIN ESTEBAN MD April 02, 2017 21:14
[2017-04-03] VITALS (12 sets, daily range): BP systolic 95–129; BP diastolic 55–76; PULSE 35–56; RESP 17–18
[2017-04-03] MEDS: VANCOMYCIN 1 GM in NS 250 ML IVPB SCH ×2 (00:30→14:12)
[2017-04-03] MEDS: SOD CHLORIDE 0.9% 1,000 ML IV SCH ×2 (03:09→15:25)
[2017-04-03] MEDS: PIPER-TAZO 3.375 GM IV (PMX) 100 ML IVPB SCH ×3 (05:38→18:10)
[2017-04-03] MEDS: PANTOPRAZOLE 40 MG INJ IV SCH (05:38)
[2017-04-03] MEDS: METHYLPREDNISOLONE 125 MG INJ IV SCH ×3 (05:38→21:14)
[2017-04-03] MEDS: ESCITALOPRAM 10 MG TAB PO SCH (08:48)
[2017-04-03 09:21] LABS: ADD SCAN DIFF NO
[2017-04-03 09:23] LABS: BASOPHILS % 0.1 % (0.0-2.0); HEMATOCRIT 27.5 % (42.0-52.0); HEMOGLOBIN 8.9 g/dl (14.0-18.0); LYMPHOCYTES # 0.9 10^3/ul (0.8-2.9); MEAN CORPUSCULAR HEMOGLOBIN 29.7 pg (29.0-33.0); MEAN CORPUSCULAR HGB CONC 32.4 g/dl (32.0-37.0); MEAN CORPUSCULAR VOLUME 91.7 fl (82.0-101.0); MEAN PLATELET VOLUME 9.2 fl (7.4-10.4); MONOCYTE # 0.2 10^3/ul (0.3-0.9); MONOCYTES % 1.4 % (0.0-11.0); NEUTROPHIL # 13.6 10^3/ul (1.6-7.5); NEUTROPHILS % 91.4 % (39.0-77.0); PLATELET COUNT 707 10^3/UL (140-415); RED CELL DISTRIBUTION WIDTH 18.3 % (11.5-14.5); WHITE BLOOD COUNT 14.8 10^3/ul (4.8-10.8)
[2017-04-03 09:44] LABS: CALCIUM 9.2 mg/dl (8.4-10.2); CREATININE 0.63 mg/dl (0.61-1.24); POTASSIUM 3.6 mmol/L (3.5-5.1)
--- NOTE | 2017-04-03 10:02 | PN ---
DATE: 04/03/2017 CARDIOLOGY FOLLOWUP SUBJECTIVE: Discussed with the staff. Rhythm strip was reviewed. The patient remains in sinus bra dycardia, slight atrial bradycardia. Denies any symptoms ____. No chest pain, no palpitation, no s yncope, no presyncope. Awaiting the IR procedures. The patient says she is anxious about it. MEDICATIONS: Reviewed. PHYSICAL EXAMINATION: VITAL SIGNS: Temperature 98.7, heart rate 40, blood pressure 95/55, respiratory rate of 17, saturat ing 99%. HEENT: Normocephalic, atraumatic. Thin gentleman in no acute distress. CARDIOVASCULAR: Bradycardic, systolic murmur. PULMONARY: With no wheezes or rhonchi. GASTROINTESTINAL: Status post previous surgeries. Mild tenderness to palpation. EXTREMITIES: With trivial edema. NEUROLOGIC: Awake and alert. PSYCHIATRIC: Appears to be anxious, but otherwise stable. ASSESSMENT AND PLAN: 1. Sick-sinus syndrome with marked sinus bradycardia, currently appears to be asymptomatic. Will continue to monitor as long as remains asymptomatic. 2. Lymphoma, cholangiocarcinoma, sclerosing cholangitis. Follow up with the GI and surgery as well as hematology/oncology status post multiple abdominal surgeries. 3. Severe malnutrition, elevated LFTs. 4. Jaundice secondary to above. RECOMMENDATIONS: We will continue to monitor at this point. GI workup. Surgical workup as per abdirashid bourne will be continued. Dictated By: POOJA BISHOP/JASMYNE Conf#: [id number] DID#: [id number] CC: Barraza;*EndCC*
[2017-04-03] MEDS ORDERED: LIDOCAINE 1% (MDV) 20 ML INJ ONE (11:14)
[2017-04-03] MEDS ORDERED: IOHEXOL 300MG/ML 150 ML BTL ONE (11:14)
--- NOTE | 2017-04-03 16:16 | PN ---
Date/Time of Note Date/Time of Note DATE: 04/03/17 TIME: 16:14 Assessment/Plan VTE Prophylaxis VTE Prophylaxis Intervention: SCD's Lines/Catheters IV [facility]ter Type (from [facility]): Peripheral IV Urinary Cath still in place: No Assessment/Plan Assessment/Plan Obstructive jaundice S/P bile duct excision with cholecystectomy excision pf extrahepatic duct,and Isabell en Y hepaticojejuniostomy MRI 03/31/2017 There is a lobular area of elevated T2 signal is seen in the central liver worrisome for a mass possibly cholangiocarcinoma and this causes prominent intrahepatic biliary ductal dilatation of both the left and right intrahepatic biliary ducts with central loss of signal at the area of the mass. Prominent hepatomegaly is seen with findings suggestive for portal hypertension. Mild ascites is seen. Surgical changes are seen of the bowel with no evidence of an obstruction. There is a fecal filled colon * History of proctocolectomy with J pouch 2005 * Intractable pain Plan * Continue present management * pain control * biliary drainage by interventional radiology Subjective 24 Hr Interval Summary Free Text/Dictation * Course reviewed with RN * patient seen and examined * PTBD rescheduled Exam/Review of Systems Vital Signs Vitals Vital Signs Date Time Temp Pulse Resp B/P Pulse Ox O2 Delivery O2 Flow Rate FiO2 04/03/17 15:43 97.8 50 18 106/58 100 04/01/17 06:45 Room Air 03/30/17 17:29 2 Intake and Output 04/02/17 04/02/17 04/03/17 15:00 23:00 07:00 Intake Total 900 ml 1830 ml Balance 900 ml 1830 ml Exam Constitutional: alert, oriented Head: atraumatic, normocephalic Eyes: icteric Neck: non-tender, supple Respiratory: clear to auscultation, normal air movement Cardiovascular: nl pulses, regular rate and rhythm Gastrointestinal: bowel sounds, non-tender, soft Musculoskeletal: nl extremities to inspection Extremities: normal pulses Results Result Diagram: 04/03/17 0845 04/03/17 0845 Results 24 hrs Laboratory Tests Test 04/03/17 08:45 White Blood Count 14.8 H Red Blood Count 3.00 L Hemoglobin 8.9 L Hematocrit 27.5 L Mean Corpuscular Volume 91.7 Mean Corpuscular Hemoglobin 29.7 Mean Corpuscular Hemoglobin Concent 32.4 Red Cell Distribution Width 18.3 H Platelet Count 707 H Mean Platelet Volume 9.2 Neutrophils % 91.4 H Lymphocytes % 6.0 L Monocytes % 1.4 Eosinophils % 0.0 Basophils % 0.1 Nucleated Red Blood Cells % 0.0 Neutrophils # 13.6 H Lymphocytes # 0.9 Monocytes # 0.2 L Eosinophils # 0.0 Basophils # 0.0 Nucleated Red Blood Cells # 0.0 Sodium Level 140 Potassium Level 3.6 Chloride Level 108 Carbon Dioxide Level 25 Anion Gap 11 Blood Urea Nitrogen 15 Creatinine 0.63 Glucose Level 108 Calcium Level 9.2 Medications Medications Current Medications Ondansetron HCl (Zofran Inj) 4 mg Q6H PRN IV NAUSEA AND/OR VOMITING; Start at 19:30 Acetaminophen (Tylenol Tab) 650 mg Q6H PRN PO PAIN LEVEL 1-3 OR FEVER; Start at 19:30 Docusate Sodium (Colace) 100 mg Q12H PRN PO CONSTIPATION; Start 03/30/17 at 19: 30 Magnesium Hydroxide (Milk Of Mag) 30 ml DAILY PRN PO CONSTIPATION; Start at 19:30 Sodium Biphosphate/ Sodium Phosphate (Fleet Enema) 133 ml DAILY PRN [place] CONSTIPATION; Start 03/30/17 at 19:30 Pantoprazole (Protonix Iv) 40 mg DAILY@06 IV Last administered on 04/03/17 05: 38; Admin Dose 40 MG; Start 03/31/17 at 06:00 Lorazepam 0.5 mg 0.5 mg Q6H PRN IV ANXIETY; Start 03/30/17 at 19:30 Sodium Chloride 1,000 ml @ 100 mls/hr Q10H IV Last administered on 04/03/17 15:25; Admin Dose 100 MLS/HR; Start 03/30/17 at 19:27 Piperacillin Sod/ Tazobactam Sod (Zosyn 3.375gm/ 100 ml (Pmx)) 100 ml @ 200 mls /hr Q6 IVPB Last administered on 04/03/17 14:11; Admin Dose 200 MLS/HR; Start 03/31/17 at 00:00 Vancomycin HCl (Vanco Iv Per Pharmacy) VANCOMYCIN PER PHARMACY NOTE XX ; Start 03/30/17 at 19:30 Hydralazine HCl (Apresoline) 10 mg Q6H PRN IV ELEVATED BLOOD PRESSURE; Start at 19:30 Nitroglycerin (Nitroglycerin (Sl Tab) 0.4 Mg) 1 tab Q5M PRN SL ANGINA; Start at 19:30 Escitalopram Oxalate (Lexapro) 10 mg DAILY PO Last administered on 04/03/17 08 :48; Admin Dose 10 MG; Start 03/31/17 at 09:00 Hydromorphone HCl (Dilaudid PLUG GROWER) MG/HR CONTINUOUS R... Q4PCA IV Last administered on 03/31/17 15:09; Admin Dose 6 MG; Start 03/31/17 at 13:30 Methylprednisolone Sodium Succinate 60 mg 60 mg Q8 IV Last administered on 04/03 14:12; Admin Dose 60 MG; Start 03/31/17 at 14:00 Vancomycin HCl (Vancocin) 250 ml @ 125 mls/hr Q12H IVPB Last administered on 14:12; Admin Dose 125 MLS/HR; Start 04/01/17 at 12:30 BRAD PRADO MD April 03, 2017 16:16
--- NOTE | 2017-04-03 17:02 | PN ---
Date/Time of Note Date/Time of Note DATE: 04/03/17 TIME: 13:43 Assessment/Plan Lines/Catheters IV Catheter Type (from Nrs): Peripheral IV Andrews in Place (from Nrs): No Assessment/Plan Assessment/Plan [facility] Progress Note Date of Service: 04/03/17 Today's Impression & Plan: Overall stable per report. Not in room due to scheduled IR intervention (will have to be rescheduled due to bradycardia and need for anesthesia per my discussions with Dr. Grijalva this afternoon). With above assessment, I've recommended the following for today: 1. IR percutaneous drainage procedure with Dr. Grijalva with image-guided assistance and with anesthesia involvement due to bradycardia 2. Aggressive nutritional support with increased oral intake. 3. Continue aggressive medical management to include broad-spectrum antimicrobials for possible cholangitis. 4. Check labs. 5. I will continue to follow the patient along with you. Thank you again for your great care of this very pleasant patient and wonderful family. If there are any questions, please feel free to call me at [phone]. TOTAL VISIT TIME: 20 minutes of which more than half was spent in [id number] discussion with the patient, possibly including family, as well as coordination of care between multiple physicians and providers. Disclaimer: Inadvertent spelling or grammatical errors are likely due to EHR/ dictation software use and do not reflect on the overall quality of patient care. Updated clinical summary: A very pleasant 61-year-old gentleman with significant past medical history including ulcerative colitis status post total proctocolectomy and ileoanal pouch as well as a number of other medical issues who was diagnosed with cholangiocarcinoma and underwent a radical bile duct resection that included extrahepatic bile duct and gallbladder at [facility], 2016, with final diagnosis of cholangiocarcinoma with 1/8 lymph node positive disease as well as low-grade dysplasia and carcinoma in situ at the proximal margin. The patient was readmitted to [facility] after a 2 month hospital stay at [facility] with increasing weakness, jaundice, and diffuse body pain. COMORBIDITIES: 1. History of ulcerative colitis status post total proctocolectomy and ileoanal pouch. 2. Diagnosis of primary sclerosing cholangitis since 2008 being cared for at various institutions such as [facility] and by various physicians with involvement of Dr. Krystian Adkins for hepatology. 3. History of hospitalization at [facility] for bile duct obstruction from mid December to early March with bile duct excision with cholecystectomy with removal of extrahepatic bile duct and Isabell-en-Y hepaticojejunostomy on 07/2017 with the above-mentioned pathology. 4. Chronic back pain, mainly lower, for the last 5 to 6 years. 5. Significant weight loss of more than 20 to 30 pounds over the last 6 months. 6. No history of lymphoma (note that this was reported erroneously in the patient's chart. The patient does not report any history of lymphoma in the past and that is also corroborated by the patient's family). 7. Status post multiple ERCPs and stenting in the past since 2005. 8. Elevated alpha fetoprotein 1.8 in 12/2016. 9. Elevated CA19-9 of 272.9 in 12/2016. 10. Normal CEA at 1.6 on 01/14/2017. 11. Status post sigmoidoscopy, 01/16/2017, showing moderate pouchitis and negative for dysplasia or malignancy. Subjective: No major events or complaints reported; not in room Objective: Vitals: See below Exam: Not in room Exam/Review of Systems Vital Signs Vitals Vital Signs Date Time Temp Pulse Resp B/P Pulse Ox O2 Delivery O2 Flow Rate FiO2 04/03/17 16:33 56 04/03/17 15:43 97.8 18 106/58 100 04/01/17 06:45 Room Air 03/30/17 17:29 2 Intake and Output 04/02/17 04/02/17 04/03/17 15:00 23:00 07:00 Intake Total 900 ml 1830 ml Balance 900 ml 1830 ml Results Result Diagram: 04/03/17 0845 04/03/17 0845 ZOE GOYAL M.D. April 03, 2017 17:02
--- NOTE | 2017-04-03 20:47 | PN ---
Date/Time of Note Date/Time of Note DATE: 04/03/17 TIME: 20:45 Assessment/Plan VTE Prophylaxis VTE Prophylaxis Intervention: SCD's Lines/Catheters IV Catheter Type (from [facility] Peripheral IV Urinary Cath still in place: No Assessment/Plan Assessment/Plan 1. Obstructive jaundice. Stable, MRI showed recurrent of tumour,Sp hepatobiliary consult 2. 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 currenlty with recurrent of tumour 3. Chronic Crohn's diseasestatus post total proctocolectomy with J-pouch creation 2005. 4. Chronic primary sclerosing cholangitis w cholangiocarcinoma. Needs advanced care planning evaluated. Poor prognosis. Performance status questionable at this time for chemotherapy & bilirubin needs some improvement. 5. Severe symptomatic bradycardia with HR down to 40s 7. s/p bd excision w cholecystectomy, excision of extrahepatic cbd and Isabell-en -Y hepaticojejunostomy. 8. Failure to thrive 9. Anemia 10. Reactive thrombocytosis 11. Dyslipidemia. S/p hepatobiliary consult- HR still 30-40s, Today CT guided drainage has been cancelled due to low HR has been following for pain management Subjective 24 Hr Interval Summary Free Text/Dictation HR still 30s, CT guided drainage has been cancelled due to low HR, pt asymptomatic Exam/Review of Systems Vital Signs Vitals Vital Signs Date Time Temp Pulse Resp B/P Pulse Ox O2 Delivery O2 Flow Rate FiO2 04/03/17 20:29 39 04/03/17 20:12 98.1 18 115/76 100 04/01/17 06:45 Room Air 03/30/17 17:29 2 Intake and Output 04/02/17 04/02/17 04/03/17 15:00 23:00 07:00 Intake Total 900 ml 1830 ml Balance 900 ml 1830 ml Results Result Diagram: 04/03/17 0845 04/03/17 0845 Results 24 hrs Laboratory Tests Test 04/03/17 08:45 White Blood Count 14.8 H Red Blood Count 3.00 L Hemoglobin 8.9 L Hematocrit 27.5 L Mean Corpuscular Volume 91.7 Mean Corpuscular Hemoglobin 29.7 Mean Corpuscular Hemoglobin Concent 32.4 Red Cell Distribution Width 18.3 H Platelet Count 707 H Mean Platelet Volume 9.2 Neutrophils % 91.4 H Lymphocytes % 6.0 L Monocytes % 1.4 Eosinophils % 0.0 Basophils % 0.1 Nucleated Red Blood Cells % 0.0 Neutrophils # 13.6 H Lymphocytes # 0.9 Monocytes # 0.2 L Eosinophils # 0.0 Basophils # 0.0 Nucleated Red Blood Cells # 0.0 Sodium Level 140 Potassium Level 3.6 Chloride Level 108 Carbon Dioxide Level 25 Anion Gap 11 Blood Urea Nitrogen 15 Creatinine 0.63 Glucose Level 108 Calcium Level 9.2 Medications Medications Current Medications Ondansetron HCl (Zofran Inj) 4 mg Q6H PRN IV NAUSEA AND/OR VOMITING; Start at 19:30 Acetaminophen (Tylenol Tab) 650 mg Q6H PRN PO PAIN LEVEL 1-3 OR FEVER; Start at 19:30 Docusate Sodium (Colace) 100 mg Q12H PRN PO CONSTIPATION; Start 03/30/17 at 19: 30 Magnesium Hydroxide (Milk Of Mag) 30 ml DAILY PRN PO CONSTIPATION; Start at 19:30 Sodium Biphosphate/ Sodium Phosphate (Fleet Enema) 133 ml DAILY PRN ID CONSTIPATION; Start 03/30/17 at 19:30 Pantoprazole (Protonix Iv) 40 mg DAILY@06 IV Last administered on 04/03/17 05: 38; Admin Dose 40 MG; Start 03/31/17 at 06:00 Lorazepam 0.5 mg 0.5 mg Q6H PRN IV ANXIETY; Start 03/30/17 at 19:30 Sodium Chloride 1,000 ml @ 100 mls/hr Q10H IV Last administered on 04/03/17 15:25; Admin Dose 100 MLS/HR; Start 03/30/17 at 19:27 Piperacillin Sod/ Tazobactam Sod (Zosyn 3.375gm/ 100 ml (Pmx)) 100 ml @ 200 mls /hr Q6 IVPB Last administered on 04/03/17 18:10; Admin Dose 200 MLS/HR; Start 03/31/17 at 00:00 Vancomycin HCl (Vanco Iv Per Pharmacy) VANCOMYCIN PER PHARMACY NOTE XX ; Start 03/30/17 at 19:30 Hydralazine HCl (Apresoline) 10 mg Q6H PRN IV ELEVATED BLOOD PRESSURE; Start at 19:30 Nitroglycerin (Nitroglycerin (Sl Tab) 0.4 Mg) 1 tab Q5M PRN SL ANGINA; Start at 19:30 Escitalopram Oxalate (Lexapro) 10 mg DAILY PO Last administered on 04/03/17 08 :48; Admin Dose 10 MG; Start 03/31/17 at 09:00 Hydromorphone HCl (Dilaudid COMPLIANCE MONITOR) MG/HR CONTINUOUS R... Q4PCA IV Last administered on 03/31/17 15:09; Admin Dose 6 MG; Start 03/31/17 at 13:30 Methylprednisolone Sodium Succinate 60 mg 60 mg Q8 IV Last administered on 04/03 14:12; Admin Dose 60 MG; Start 03/31/17 at 14:00 Vancomycin HCl (Vancocin) 250 ml @ 125 mls/hr Q12H IVPB Last administered on 14:12; Admin Dose 125 MLS/HR; Start 04/01/17 at 12:30 Miscellaneous Information (*Rx Drug Level Order Reminder*) VANCO TROUGH @ 2, 330 ON... ONCE ONCE XX ; Start 04/03/17 at 23:30; Stop 04/03/17 at 23:31 DWIGHT NEAL MD April 03, 2017 20:46
--- NOTE | 2017-04-03 21:51 | CONS ---
Date/Time of Note Date/Time of Note DATE: 04/03/17 TIME: 21:50 Assessment/Plan Assessment/Plan Chief Complaint/Hosp Course A/P 1. 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 postop , NOW WITH Metastatic dis in the liver lobular area of elevated T2 signal is seen in the central liver worrisome for a mass possibly cholangiocarcinoma and this causes prominent intrahepatic biliary ductal dilatation of both the left and right intrahepatic biliary ducts with central loss of signal at the area of the mass. C/W recurrent METASTATIC tumor CT and MRI- REVIEWED TUMOR MARKERS : ca 19-9 1420 , most likely 2 to tumor progression hepatobiliary consult noted- D/W D LEÓN PT AGREED FOR percutaneous drainage procedure with Dr. Grijalva image-guided drain placement in the right lobe of the liver- ORDERED 2. Obstructive jaundice. Stable, ro stricture/recurrent tumor. MRCP/GI eval, hepatobiliary surgery consult- REVIEWED surgical consult Dr Anderson biliary drainage by interventional radiology 3. Chronic Crohn's disease status post total proctocolectomy with J-pouch creation 2005. 4. Chronic primary sclerosing cholangitis w cholangiocarcinoma. Needs advanced care planning evaluated. Poor prognosis. Performance status questionable at this time for chemotherapy & bilirubin needs some improvement. 5. Malnutrition; oral feeds/Megace vs TPN 6. Active pouchitis? 7. Postop day 16 bd excision w cholecystectomy, excision of extrahepatic cbd and Isabell-en-Y hepaticojejunostomy. 8. Failure to thrive, may need snf 9. Anemia 10. Reactive thrombocytosis 11. Dyslipidemia. Problems: Consultation Date/Type/Reason Admit Date/Time March 30, 2017 at 18:53 Initial Consult Date 03/31/17 Type of Consultation: [facility] Referring Provider: HUMZA JAIME MD 24 HR Interval Summary Free Text/Dictation Today CT guided drainage has been cancelled due to low HR Exam/Review of Systems Vital Signs Vitals Vital Signs Date Time Temp Pulse Resp B/P Pulse Ox O2 Delivery O2 Flow Rate FiO2 04/03/17 20:29 39 04/03/17 20:12 98.1 18 115/76 100 04/01/17 06:45 Room Air 03/30/17 17:29 2 Intake and Output 04/02/17 04/02/17 04/03/17 15:00 23:00 07:00 Intake Total 900 ml 1830 ml Balance 900 ml 1830 ml Exam Constitutional: alert, oriented, very thin, slightly tired, jaundice Psych: nl mood/affect Head: normocephalic Eyes: EOMI, sclera anicteric, nl lids ENMT: nl external ears & nose, nl lips & teeth, nl nasal mucosa & septum Respiratory: clear to auscultation, normal air movement Cardiovascular: regular rate and rhythm Gastrointestinal: soft, diffuse abdominal tenderness Musculoskeletal: nl extremities to inspection Neurological: STRING LASTER II-XII intact Results Result Diagram: 04/03/17 0845 04/03/17 0845 Results 24 hrs Laboratory Tests Test 04/03/17 08:45 White Blood Count 14.8 H Red Blood Count 3.00 L Hemoglobin 8.9 L Hematocrit 27.5 L Mean Corpuscular Volume 91.7 Mean Corpuscular Hemoglobin 29.7 Mean Corpuscular Hemoglobin Concent 32.4 Red Cell Distribution Width 18.3 H Platelet Count 707 H Mean Platelet Volume 9.2 Neutrophils % 91.4 H Lymphocytes % 6.0 L Monocytes % 1.4 Eosinophils % 0.0 Basophils % 0.1 Nucleated Red Blood Cells % 0.0 Neutrophils # 13.6 H Lymphocytes # 0.9 Monocytes # 0.2 L Eosinophils # 0.0 Basophils # 0.0 Nucleated Red Blood Cells # 0.0 Sodium Level 140 Potassium Level 3.6 Chloride Level 108 Carbon Dioxide Level 25 Anion Gap 11 Blood Urea Nitrogen 15 Creatinine 0.63 Glucose Level 108 Calcium Level 9.2 Medications Medications Current Medications Ondansetron HCl (Zofran Inj) 4 mg Q6H PRN IV NAUSEA AND/OR VOMITING; Start at 19:30 Acetaminophen (Tylenol Tab) 650 mg Q6H PRN PO PAIN LEVEL 1-3 OR FEVER; Start at 19:30 Docusate Sodium (Colace) 100 mg Q12H PRN PO CONSTIPATION; Start 03/30/17 at 19: 30 Magnesium Hydroxide (Milk Of Mag) 30 ml DAILY PRN PO CONSTIPATION; Start at 19:30 Sodium Biphosphate/ Sodium Phosphate (Fleet Enema) 133 ml DAILY PRN [place] CONSTIPATION; Start 03/30/17 at 19:30 Pantoprazole (Protonix Iv) 40 mg DAILY@06 IV Last administered on 04/03/17t 05: 38; Admin Dose 40 MG; Start 03/31/17 at 06:00 Lorazepam 0.5 mg 0.5 mg Q6H PRN IV ANXIETY; Start 03/30/17 at 19:30 Sodium Chloride 1,000 ml @ 100 mls/hr Q10H IV Last administered on 04/03/17 15:25; Admin Dose 100 MLS/HR; Start 03/30/17 at 19:27 Piperacillin Sod/ Tazobactam Sod (Zosyn 3.375gm/ 100 ml (Pmx)) 100 ml @ 200 mls /hr Q6 IVPB Last administered on 04/03/17 18:10; Admin Dose 200 MLS/HR; Start 03/31/17 at 00:00 Vancomycin HCl (Vanco Iv Per Pharmacy) VANCOMYCIN PER PHARMACY NOTE XX ; Start 03/30/17 at 19:30 Hydralazine HCl (Apresoline) 10 mg Q6H PRN IV ELEVATED BLOOD PRESSURE; Start at 19:30 Nitroglycerin (Nitroglycerin (Sl Tab) 0.4 Mg) 1 tab Q5M PRN SL ANGINA; Start at 19:30 Escitalopram Oxalate (Lexapro) 10 mg DAILY PO Last administered on 04/03/17 08 :48; Admin Dose 10 MG; Start 03/31/17 at 09:00 Hydromorphone HCl (Dilaudid BILLET INSPECTOR) MG/HR CONTINUOUS R... Q4PCA IV Last administered on 03/31/17 15:09; Admin Dose 6 MG; Start 03/31/17 at 13:30 Methylprednisolone Sodium Succinate 60 mg 60 mg Q8 IV Last administered on 04/03 21:14; Admin Dose 60 MG; Start 03/31/17 at 14:00 Vancomycin HCl (Vancocin) 250 ml @ 125 mls/hr Q12H IVPB Last administered on 14:12; Admin Dose 125 MLS/HR; Start 04/01/17 at 12:30 Miscellaneous Information (*Rx Drug Level Order Reminder*) VANCO TROUGH @ 2, 330 ON... ONCE ONCE XX ; Start 04/03/17 at 23:30; Stop 04/03/17 at 23:31 KIN ESTEBAN MD April 03, 2017 21:51
[2017-04-04] VITALS (18 sets, daily range): BP systolic 90–176; BP diastolic 51–103; PULSE 35–74; RESP 11–28
[2017-04-04] MEDS: PIPER-TAZO 3.375 GM IV (PMX) 100 ML IVPB SCH ×4 (00:34→18:42)
[2017-04-04] MEDS: VANCOMYCIN 1 GM in NS 250 ML IVPB SCH (00:36)
[2017-04-04] MEDS: PANTOPRAZOLE 40 MG INJ IV SCH (07:00)
[2017-04-04] MEDS: METHYLPREDNISOLONE 125 MG INJ IV SCH ×3 (07:00→21:28)
[2017-04-04] MEDS ORDERED: GLYCOPYRROLATE 0.4 MG INJ ONE (07:00)
[2017-04-04] MEDS ORDERED: NEOSTIGMINE 3 MG/3 ML SYRINGE ONE (07:00)
[2017-04-04] MEDS: SOD CHLORIDE 0.9% 1,000 ML IV SCH ×2 (07:02→09:27)
[2017-04-04] MEDS: ESCITALOPRAM 10 MG TAB PO SCH (09:00)
--- NOTE | 2017-04-04 09:10 | PN ---
DATE: 04/04/2017 CARDIOLOGY FOLLOWUP SUBJECTIVE: Discussed with the staff. Rhythm strip was reviewed. The patient remains in sinus brett ycardia, heart rate as low as 30 overnight. The patient again still continues to have no complaints of dizziness, syncope, presyncope. He is able to walk around in room. But generalized fatigue tho ugh. Discussed with Dr. Grijalva from radiology as well. MEDICATIONS: Reviewed. PHYSICAL EXAMINATION: VITAL SIGNS: Temperature 97.4, heart rate of 40, blood pressure 107/56, respiration rate of 18, sat urating 97%. HEENT: Normocephalic, atraumatic. Cachectic looking gentleman. EYES: Pupils are equal. CARDIOVASCULAR: Bradycardia. PULMONARY: With no wheezes. GASTROINTESTINAL: Mild tenderness to palpation with previous surgery. EXTREMITIES: With no significant lower extremity edema. NEUROLOGIC: Awake and alert. PSYCHIATRIC: Anxious, but pleasant. LABORATORY: WBC of 14.8, hemoglobin 8.9, platelets of 707. Sodium 140, potassium 3.6, BUN of 15, c reatinine 0.63, glucose 108. ASSESSMENT AND PLAN: 1. Sick sinus syndrome with marked sinus bradycardia, currently again patient denies any symptoms t o me. 2. History of lymphoma, cholangiocarcinoma, sclerosing cholangitis. 3. Severe malnutrition. 4. Elevated LFTs. 5. Jaundice. RECOMMENDATIONS: Continue to monitor only at this point. Given his multiple comorbidities and poor prognosis and no evidence of heart block, but only sick sinus at this point, I do not see any benef it in placing a pacemaker, as long as the patient has no symptoms with his marked bradycardia. Pace maker would be considered; however, if the patient becomes symptomatic. Otherwise, will continue to monitor only. Dictated By: POOJA BISHOP/JASMYNE Conf#: [id number] DID#: [id number] CC: Barraza;*EndCC*
[2017-04-04] MEDS ORDERED: GLYCOPYRROLATE 1 MG INJ ONE (09:23)
[2017-04-04] MEDS ORDERED: PROPOFOL 20 ML ONE ×2 (09:53→10:53)
[2017-04-04] MEDS ORDERED: MIDAZOLAM 1 MG/ML 2 ML INJ ONE (09:53)
[2017-04-04] MEDS ORDERED: FENTAnyl 50 MCG/ML VIAL ONE (09:53)
[2017-04-04] MEDS ORDERED: IOHEXOL 300MG/ML 30 ML BTL ONE ×2 (10:22→11:11)
[2017-04-04] MEDS ORDERED: HEPARIN 1000 UNITS/ML 10 ML INJ ONE (10:22)
[2017-04-04] MEDS ORDERED: LIDOCAINE 1% (STERILE-PAK) 30 ML INJ ONE (10:22)
[2017-04-04] MEDS ORDERED: BUPIVACAINE 0.5% (SDV) 30 ML INJ ONE (10:22)
[2017-04-04] MEDS ORDERED: CEFAZOLIN 1 GM INJ ONE (10:51)
[2017-04-04] MEDS ORDERED: DEXAMETHASONE 4 MG/ML 1 ML INJ ONE (10:51)
[2017-04-04] MEDS ORDERED: METOCLOPRAMIDE 10 MG INJ ONE (10:51)
[2017-04-04] MEDS ORDERED: ONDANSETRON 4 MG INJ ONE (10:51)
[2017-04-04] MEDS ORDERED: HYDROmorphONE (0.2 MG/ML) 10ML SYG IV PRN ×3 (12:00)
[2017-04-04] MEDS ORDERED: hydrALAzine 20 MG INJ IV PRN (12:00)
[2017-04-04] MEDS ORDERED: FENTAnyl 50 MCG/ML VIAL IV PRN ×3 (12:00)
[2017-04-04] MEDS ORDERED: ONDANSETRON 4 MG INJ IV PRN (12:00)
[2017-04-04] MEDS ORDERED: morphine (1 MG/ML) 10ML SYRINGE IV PRN ×3 (12:00)
[2017-04-04] MEDS ORDERED: EPHEDrine SULFATE 50 MG/5 ML SYG IV PRN (12:00)
--- NOTE | 2017-04-04 12:30 | RADRPT ---
PROCEDURE: Fluoroscopic and ultrasonographic guided external biliary drainage and transhepatic cho langiogram. CLINICAL INDICATION: Biliary obstruction due to malignancy. TECHNIQUE: Prior to the procedure, informed consent was obtained. Risks including bleeding and inf ection were explained to the patient. The patient understood and was willing to proceed. A procedura l pause was performed. The patient's name, date of , and procedure to be performed were verifie d. The right upper quadrant of the abdomen was prepped and draped in the usual sterile fashion. A to irvin of 2 g of Ancef was administered intravenously the medially prior to the procedure for prophylax is. Following injection of lidocaine, a 22-gauge needle was advanced into the liver in the right mid axi llary line using ultrasound guidance. The needle was advanced into a central bile duct using ultraso und guidance. Following this, there was injection of iodinated contrast. Contrast entered a dilated bile duct. A second 22-gauge needle was then advanced into a more peripheral bile duct in the poste rior segment of the right hepatic lobe. A 0.018 inch guidewire was then advanced through the periphe ral bile duct into a more central bile duct. The tract was dilated to 6-Guyanese. Contrast was injecte d opacifying the bile ducts. The 0.018 inch guidewire was removed and replaced with a 0.035 inch lakshmi dewire. The catheter was removed leaving the guide wire in position. The tract was dilated to 8.5 Guyanese and a 8.5 Guyanese internal drainage Estrada-Nuñez pigtail catheter was advanced over the guid ewire so that the pigtail was formed in the biliary system centrally. The catheter was then secured to the patient's skin with 0 silk. The drainage catheter was then connected to a standard gr avity drainage bag. COMPARISON: MRCP dated 03/31/2017. FINDINGS: Images with contrast demonstrate dilated intrahepatic bile ducts and minimal contrast entering the b owel through a prior operative site. Subsequent images demonstrate the guide wire and catheter in th e right bile duct. Final images demonstrate the internal drainage catheter in satisfactory position in the right intrah epatic bile duct. IMPRESSION: 1. Satisfactory fluoroscopic guided biliary drainage. Internal drainage catheter in satisfactory p osition. RPTAT: QQ .Talat Grijalva MD, MD Date Time Electronically viewed and signed by .Talat Grijalva MD, on 04/04/2017 12:30 .R/
[2017-04-04 13:16] LABS: ADD SCAN DIFF NO
[2017-04-04 13:20] LABS: BASOPHILS % 0.1 % (0.0-2.0); HEMATOCRIT 30.6 % (42.0-52.0); HEMOGLOBIN 9.5 g/dl (14.0-18.0); LYMPHOCYTES # 0.6 10^3/ul (0.8-2.9); LYMPHOCYTES % 7.9 % (15.0-51.0); MEAN CORPUSCULAR HEMOGLOBIN 29.2 pg (29.0-33.0); MEAN CORPUSCULAR VOLUME 94.2 fl (82.0-101.0); MEAN PLATELET VOLUME 9.3 fl (7.4-10.4); MONOCYTE # 0.1 10^3/ul (0.3-0.9); MONOCYTES % 0.7 % (0.0-11.0); NEUTROPHIL # 7.1 10^3/ul (1.6-7.5); NEUTROPHILS % 87.5 % (39.0-77.0); PLATELET COUNT 625 10^3/UL (140-415); RED BLOOD COUNT 3.25 10^6/ul (4.70-6.10); RED CELL DISTRIBUTION WIDTH 18.5 % (11.5-14.5); WHITE BLOOD COUNT 8.1 10^3/ul (4.8-10.8)
--- NOTE | 2017-04-04 13:53 | PN ---
Date/Time of Note Date/Time of Note DATE: 04/04/17 TIME: 13:46 Assessment/Plan Lines/Catheters IV Catheter Type (from Nrs): Saline Lock Andrews in Place (from Nrs): No Assessment/Plan Assessment/Plan [facility] Progress Note Date of Service: 04/04/17 Today's Impression & Plan: Overall stable. Successful IR placement of perc biliary drain in to the right biliary system with removal of pus. Encouraging to see trace of contrast in the intestine, potentially opening the means to perhaps stent across the narrowing and internalizing the drainage process. Not clear if the right side communicated with the left side of the biliary tree Answered multiple questions in the room and also spent time addressing family's concerns outside of the room. With above assessment, I've recommended the following for today: 1. Continued aggressive medical management with broad spec antimicrobials for the next few days 2. Aggressive nutritional support with increased oral intake. 3. Check labs. 4. Will attempt to set up possible stenting across the anastomosis on Saturday with IR (d/w Dr. Grijalva and much appreciate his care) Thank you again for your great care of this very pleasant patient and wonderful family. If there are any questions, please feel free to call me at [phone]. TOTAL VISIT TIME: 20 minutes of which more than half was spent in [id number] discussion with the patient, possibly including family, as well as coordination of care between multiple physicians and providers. Disclaimer: Inadvertent spelling or grammatical errors are likely due to EHR/ dictation software use and do not reflect on the overall quality of patient care. Updated clinical summary: A very pleasant 61-year-old gentleman with significant past medical history including ulcerative colitis status post total proctocolectomy and ileoanal pouch as well as a number of other medical issues who was diagnosed with cholangiocarcinoma and underwent a radical bile duct resection that included extrahepatic bile duct and gallbladder at [facility], 2016, with final diagnosis of cholangiocarcinoma with 1/8 lymph node positive disease as well as low-grade dysplasia and carcinoma in situ at the proximal margin. The patient was readmitted to [facility] after a 2 month hospital stay at [facility] with increasing weakness, jaundice, and diffuse body pain. COMORBIDITIES: 1. History of ulcerative colitis status post total proctocolectomy and ileoanal pouch. 2. Diagnosis of primary sclerosing cholangitis since 2008 being cared for at various institutions such as [facility] and by various physicians with involvement of Dr. Krystian Adkins for hepatology. 3. History of hospitalization at [facility] for bile duct obstruction from mid December to early March with bile duct excision with cholecystectomy with removal of extrahepatic bile duct and Isabell-en-Y hepaticojejunostomy on 07/2017 with the above-mentioned pathology. 4. Chronic back pain, mainly lower, for the last 5 to 6 years. 5. Significant weight loss of more than 20 to 30 pounds over the last 6 months. 6. No history of lymphoma (note that this was reported erroneously in the patient's chart. The patient does not report any history of lymphoma in the past and that is also corroborated by the patient's family). 7. Status post multiple ERCPs and stenting in the past since 2005. 8. Elevated alpha fetoprotein 1.8 in 12/2016. 9. Elevated CA19-9 of 272.9 in 12/2016. 10. Normal CEA at 1.6 on 01/14/2017. 11. Status post sigmoidoscopy, 01/16/2017, showing moderate pouchitis and negative for dysplasia or malignancy. Subjective: No major events or complaints; no major abd pain and under control with medications; no n/v/d; no sob or cp; + flatus; + BM and normal; + activity Objective: Vitals: See below Exam: GENERAL: On exam, the patient was sitting in a chair and appeared to be comfortable and in no acute distress. ABDOMEN: Soft, nontender and nondistended. Incisions are clean, dry and intact without any evidence of erythema, edema, discharge, or hernia. R biliary drain with purulent fluid in the bag. There are no peritoneal signs or guarding. SKIN: Skin appears to be jaundiced and feels warm to touch. NEUROLOGIC: Patient is awake, alert, and follows commands appropriately. Exam/Review of Systems Vital Signs Vitals Vital Signs Date Time Temp Pulse Resp B/P Pulse Ox O2 Delivery O2 Flow Rate FiO2 04/04/17 13:03 39 04/04/17 12:32 18 130/78 99 04/04/17 12:02 Room Air 04/04/17 11:56 98.0 Intake and Output 04/03/17 04/03/17 04/04/17 15:00 23:00 07:00 Intake Total 900 ml 800 ml Balance 900 ml 800 ml Results Result Diagram: 04/04/17 1311 04/03/17 0845 ZOE GOYAL M.D. April 04, 2017 13:53
--- NOTE | 2017-04-04 14:37 | RADRPT ---
PROCEDURE: Ultrasound guidance for placement of needle in a dilated intrahepatic bile duct. CLINICAL INDICATION: Biliary obstruction. TECHNIQUE: Prior to the procedure, informed consent was obtained. Risks including bleeding, infection, and pneu mothorax were explained to the patient. The patient understood and was willing to proceed. A procedu ral pause was performed. The patient's name, date of , and procedure to be performed were verif ied. The needle was inserted with all elements of maximal sterile barrier technique. All of the foll owing were used: head covering, facial mask, sterile gown, sterile gloves, a large sterile sheet, ordonez nd hygiene, and 2% chlorhexidine for cutaneous antisepsis. The right and anterior abdominal wall w as prepped and draped in usual sterile fashion. Limited sonography of the liver was then performed. Noted is multiple dilated intrahepatic bile duct s. Ultrasound images were recorded and stored in the patient's medical record. Following the local injection of Xylocaine, the right hepatic lobe in the right mid axillary line wa s punctured under sonographic guidance with a 22 -gauge needle through which a 0.018 inch floppy tip guidewire was advanced into a dilated intrahepatic bile duct. The patient tolerated the procedure well. The remainder of the procedure was performed and dictated under separate cover with fluorosco pic guidance. COMPARISON: MRCP dated 03/31/2017. FINDINGS: The ultrasound images demonstrate multiple dilated intrahepatic bile ducts. The subsequent images d emonstrate the needle entering a dilated intrahepatic bile duct in the right lobe of liver. IMPRESSION: 1. Ultrasound guidance for a needle placement in dilated intrahepatic bile duct and right lobe of li radha. RPTAT: QQ .Talat Grijalva MD, Date Time Electronically viewed and signed by .Talat Grijalva MD, on 04/04/2017 14:37 .R/
--- NOTE | 2017-04-04 15:02 | PN ---
Date/Time of Note Date/Time of Note DATE: 04/04/17 TIME: 14:59 Assessment/Plan VTE Prophylaxis VTE Prophylaxis Intervention: SCD's Lines/Catheters IV [facility]from [facility] Saline Lock Urinary Cath still in place: No Assessment/Plan Assessment/Plan Assessment/Plan Obstructive jaundice S/P PTBD right biliary system 04/04/2017 S/P bile duct excision with cholecystectomy excision pf extrahepatic duct,and Isabell en Y hepaticojejuniostomy MRI 03/31/2017 There is a lobular area of elevated T2 signal is seen in the central liver worrisome for a mass possibly cholangiocarcinoma and this causes prominent intrahepatic biliary ductal dilatation of both the left and right intrahepatic biliary ducts with central loss of signal at the area of the mass. Prominent hepatomegaly is seen with findings suggestive for portal hypertension. Mild ascites is seen. Surgical changes are seen of the bowel with no evidence of an obstruction. There is a fecal filled colon * History of proctocolectomy with J pouch 2005 * Intractable pain Plan * Continue present management * pain control Subjective 24 Hr Interval Summary Free Text/Dictation * course reviewed with RN * underwent PTBD with drainage Exam/Review of Systems Vital Signs Vitals Vital Signs Date Time Temp Pulse Resp B/P Pulse Ox O2 Delivery O2 Flow Rate FiO2 04/04/17 13:03 39 04/04/17 12:32 18 130/78 99 04/04/17 12:02 Room Air 04/04/17 11:56 98.0 Intake and Output 04/03/17 04/03/17 04/04/17 15:00 23:00 07:00 Intake Total 900 ml 800 ml Balance 900 ml 800 ml Exam Constitutional: alert, oriented Head: normocephalic Neck: non-tender, supple Respiratory: clear to auscultation, normal air movement Cardiovascular: nl pulses, regular rate and rhythm Gastrointestinal: other (ptbd drain), soft Musculoskeletal: nl extremities to inspection Results Result Diagram: 04/04/17 1311 04/03/17 0845 Results 24 hrs Laboratory Tests Test 04/03/17 23:35 04/04/17 13:11 Vancomycin Level Trough 17.8 White Blood Count 8.1 # Red Blood Count 3.25 L Hemoglobin 9.5 L Hematocrit 30.6 L Mean Corpuscular Volume 94.2 Mean Corpuscular Hemoglobin 29.2 Mean Corpuscular Hemoglobin Concent 31.0 L Red Cell Distribution Width 18.5 H Platelet Count 625 H Mean Platelet Volume 9.3 Neutrophils % 87.5 H Lymphocytes % 7.9 L Monocytes % 0.7 Eosinophils % 0.0 Basophils % 0.1 Nucleated Red Blood Cells % 0.0 Neutrophils # 7.1 Lymphocytes # 0.6 L Monocytes # 0.1 L Eosinophils # 0.0 Basophils # 0.0 Nucleated Red Blood Cells # 0.0 Medications Medications Current Medications Ondansetron HCl (Zofran Inj) 4 mg Q6H PRN IV NAUSEA AND/OR VOMITING; Start at 19:30 Acetaminophen (Tylenol Tab) 650 mg Q6H PRN PO PAIN LEVEL 1-3 OR FEVER; Start at 19:30 Docusate Sodium (Colace) 100 mg Q12H PRN PO CONSTIPATION; Start 03/30/17 at 19: 30 Magnesium Hydroxide (Milk Of Mag) 30 ml DAILY PRN PO CONSTIPATION; Start at 19:30 Sodium Biphosphate/ Sodium Phosphate (Fleet Enema) 133 ml DAILY PRN [place] CONSTIPATION; Start 03/30/17 at 19:30 Pantoprazole (Protonix Iv) 40 mg DAILY@06 IV Last administered on 04/04/17 07: 00; Admin Dose 40 MG; Start 03/31/17 at 06:00 Lorazepam 0.5 mg 0.5 mg Q6H PRN IV ANXIETY; Start 03/30/17 at 19:30 Sodium Chloride 1,000 ml @ 100 mls/hr Q10H IV Last administered on 04/04/17 07:02; Admin Dose 100 MLS/HR; Start 03/30/17 at 19:27 Piperacillin Sod/ Tazobactam Sod (Zosyn 3.375gm/ 100 ml (Pmx)) 100 ml @ 200 mls /hr Q6 IVPB Last administered on 04/04/17 12:44; Admin Dose 200 MLS/HR; Start 03/31/17 at 00:00 Vancomycin HCl (Vanco Iv Per Pharmacy) VANCOMYCIN PER PHARMACY NOTE XX ; Start 03/30/17 at 19:30 Hydralazine HCl (Apresoline) 10 mg Q6H PRN IV ELEVATED BLOOD PRESSURE; Start at 19:30 Nitroglycerin (Nitroglycerin (Sl Tab) 0.4 Mg) 1 tab Q5M PRN SL ANGINA; Start at 19:30 Escitalopram Oxalate (Lexapro) 10 mg DAILY PO Last administered on 04/03/17 08 :48; Admin Dose 10 MG; Start 03/31/17 at 09:00 Hydromorphone HCl (Dilaudid VEHICLE CARE SPECIALIST) MG/HR CONTINUOUS R... Q4PCA IV Last administered on 03/31/17 15:09; Admin Dose 6 MG; Start 03/31/17 at 13:30 Methylprednisolone Sodium Succinate 60 mg 60 mg Q8 IV Last administered on 04/04 13:25; Admin Dose 60 MG; Start 03/31/17 at 14:00 Vancomycin HCl/ Sodium Chloride (Vancocin/NS) 150 ml @ 75 mls/hr Q12H IVPB ; Start 04/04/17 at 15:00 BRAD PRADO MD April 04, 2017 15:02
[2017-04-04] MEDS: VANCOMYCIN 750 MG in SOD CHLORIDE 0.9% 150 ML IVPB SCH (15:50)
[2017-04-04] MEDS ORDERED: SOD CHLORIDE 0.9% 250 ML IV ONE (16:00)
[2017-04-04 16:12] LABS: CALCIUM 8.8 mg/dl (8.4-10.2); CREATININE 0.61 mg/dl (0.61-1.24)
[2017-04-04 16:15] LABS: POTASSIUM 2.9 mmol/L (3.5-5.1)
[2017-04-04] MEDS ORDERED: POTASSIUM CHLORIDE 250 ML IVPB ONE (16:30)
--- NOTE | 2017-04-04 16:47 | PN ---
Date/Time of Note Date/Time of Note DATE: 04/04/17 TIME: 16:44 Assessment/Plan VTE Prophylaxis VTE Prophylaxis Intervention: SCD's Lines/Catheters IV [facility] Saline Lock Urinary Cath still in place: No Assessment/Plan Assessment/Plan 1. Obstructive jaundice 2/2 Biliary tumour causing Obstruction, S/p hepatobiliary consult- today S/p IR Guided external drainage 2. 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 currenlty with recurrent of tumour 3. Chronic Crohn's diseasestatus post total proctocolectomy with J-pouch creation 2005. 4. Chronic primary sclerosing cholangitis w cholangiocarcinoma. Needs advanced care planning evaluated. Poor prognosis. Performance status questionable at this time for chemotherapy & bilirubin needs some improvement. 5. Severe symptomatic bradycardia with HR down to 40s 7. s/p bd excision w cholecystectomy, excision of extrahepatic cbd and Isabell-en -Y hepaticojejunostomy. 8. Failure to thrive 9. Anemia 10. Reactive thrombocytosis 11. Dyslipidemia. S/p hepatobiliary consult- s/p IR Guided external drainage - HR still low, K low - kCl 40MEQ IV x 1 dose now has been following for pain managemen Subjective 24 Hr Interval Summary Free Text/Dictation s/p IR guided external drainage, BP stable Exam/Review of Systems Vital Signs Vitals Vital Signs Date Time Temp Pulse Resp B/P Pulse Ox O2 Delivery O2 Flow Rate FiO2 04/04/17 16:13 43 04/04/17 12:32 18 130/78 99 04/04/17 12:02 Room Air 04/04/17 11:56 98.0 Intake and Output 04/03/17 04/03/17 04/04/17 15:00 23:00 07:00 Intake Total 900 ml 800 ml Balance 900 ml 800 ml Exam Constitutional: other (weak and frail appearing. Jaundiced) Head: atraumatic, normocephalic Eyes: icteric Respiratory: clear to auscultation Cardiovascular: nl pulses, regular rate and rhythm Gastrointestinal: other (right sided surgical scar with no sign of infection), soft, tender Skin: other (jaundiced) Results Result Diagram: 04/04/17 1311 04/04/17 1529 Results 24 hrs Laboratory Tests Test 04/03/17 23:35 04/04/17 13:11 04/04/17 15:29 Vancomycin Level Trough 17.8 White Blood Count 8.1 # Red Blood Count 3.25 L Hemoglobin 9.5 L Hematocrit 30.6 L Mean Corpuscular Volume 94.2 Mean Corpuscular Hemoglobin 29.2 Mean Corpuscular Hemoglobin Concent 31.0 L Red Cell Distribution Width 18.5 H Platelet Count 625 H Mean Platelet Volume 9.3 Neutrophils % 87.5 H Lymphocytes % 7.9 L Monocytes % 0.7 Eosinophils % 0.0 Basophils % 0.1 Nucleated Red Blood Cells % 0.0 Neutrophils # 7.1 Lymphocytes # 0.6 L Monocytes # 0.1 L Eosinophils # 0.0 Basophils # 0.0 Nucleated Red Blood Cells # 0.0 Sodium Level 140 Potassium Level 2.9 *L Chloride Level 106 Carbon Dioxide Level 26 Anion Gap 11 Blood Urea Nitrogen 17 Creatinine 0.61 Glucose Level 97 Calcium Level 8.8 Medications Medications Current Medications Ondansetron HCl (Zofran Inj) 4 mg Q6H PRN IV NAUSEA AND/OR VOMITING; Start at 19:30 Acetaminophen (Tylenol Tab) 650 mg Q6H PRN PO PAIN LEVEL 1-3 OR FEVER; Start at 19:30 Docusate Sodium (Colace) 100 mg Q12H PRN PO CONSTIPATION; Start 03/30/17 at 19: 30 Magnesium Hydroxide (Milk Of Mag) 30 ml DAILY PRN PO CONSTIPATION; Start at 19:30 Sodium Biphosphate/ Sodium Phosphate (Fleet Enema) 133 ml DAILY PRN [place] CONSTIPATION; Start 03/30/17 at 19:30 Pantoprazole (Protonix Iv) 40 mg DAILY@06 IV Last administered on 04/04/17 07: 00; Admin Dose 40 MG; Start 03/31/17 at 06:00 Lorazepam 0.5 mg 0.5 mg Q6H PRN IV ANXIETY; Start 03/30/17 at 19:30 Sodium Chloride 1,000 ml @ 100 mls/hr Q10H IV Last administered on 04/04/17 07:02; Admin Dose 100 MLS/HR; Start 03/30/17 at 19:27 Piperacillin Sod/ Tazobactam Sod (Zosyn 3.375gm/ 100 ml (Pmx)) 100 ml @ 200 mls /hr Q6 IVPB Last administered on 04/04/17 12:44; Admin Dose 200 MLS/HR; Start 03/31/17 at 00:00 Vancomycin HCl (Vanco Iv Per Pharmacy) VANCOMYCIN PER PHARMACY NOTE XX ; Start 03/30/17 at 19:30 Hydralazine HCl (Apresoline) 10 mg Q6H PRN IV ELEVATED BLOOD PRESSURE; Start at 19:30 Nitroglycerin (Nitroglycerin (Sl Tab) 0.4 Mg) 1 tab Q5M PRN SL ANGINA; Start at 19:30 Escitalopram Oxalate (Lexapro) 10 mg DAILY PO Last administered on 04/03/17 08 :48; Admin Dose 10 MG; Start 03/31/17 at 09:00 Hydromorphone HCl (Dilaudid CUSTOMER PRICING MANAGER) MG/HR CONTINUOUS R... Q4PCA IV Last administered on 03/31/17 15:09; Admin Dose 6 MG; Start 03/31/17 at 13:30 Methylprednisolone Sodium Succinate 60 mg 60 mg Q8 IV Last administered on 04/04 13:25; Admin Dose 60 MG; Start 03/31/17 at 14:00 Vancomycin HCl 750 mg/Sodium Chloride 150 ml @ 75 mls/hr Q12H IVPB Last administered on 04/04/17 15:50; Admin Dose 75 MLS/HR; Start 04/04/17 at 15:00 Sodium Chloride 250 ml @ 250 mls/hr Q1H ONCE IV Last administered on 15:59; Admin Dose 250 MLS/HR; Start 04/04/17 at 16:00; Stop 04/04/17 at 16: 59 Potassium Chloride (KCl 40 MEQ/250 ML NS) 250 ml @ 62.5 mls/hr ONCE ONCE IVPB ; Start 04/04/17 at 16:30; Stop 04/04/17 at 20:29 DWIGHT NEAL MD April 04, 2017 16:47
--- NOTE | 2017-04-04 19:55 | CONS ---
Date/Time of Note Date/Time of Note DATE: 04/04/17 TIME: 19:52 Assessment/Plan Assessment/Plan Chief Complaint/Hosp Course A/P 1. 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 postop , NOW WITH Metastatic dis in the liver lobular area of elevated T2 signal is seen in the central liver worrisome for a mass possibly cholangiocarcinoma and this causes prominent intrahepatic biliary ductal dilatation of both the left and right intrahepatic biliary ducts with central loss of signal at the area of the mass. C/W recurrent METASTATIC tumor CT and MRI- REVIEWED TUMOR MARKERS : ca 19-9 1420 , most likely 2 to tumor progression hepatobiliary consult noted- D/W Kt TRAORE POST drain placement in the right lobe of the liver 2. Obstructive jaundice. Stable, ro stricture/recurrent tumor. MRCP/GI eval, hepatobiliary surgery consult- REVIEWED surgical consult Dr Anderson POST biliary drainage by interventional radiology 3. Chronic Crohn's disease status post total proctocolectomy with J-pouch creation 2005. 4. Chronic primary sclerosing cholangitis w cholangiocarcinoma. Needs advanced care planning evaluated. Poor prognosis. Performance status questionable at this time for chemotherapy & bilirubin needs some improvement. 5. Malnutrition; oral feeds/Megace vs TPN 6. Active pouchitis? 7. Postop day 16 bd excision w cholecystectomy, excision of extrahepatic cbd and Isabell-en-Y hepaticojejunostomy. 8. Failure to thrive, may need snf 9. Anemia 10. Reactive thrombocytosis 11. Dyslipidemia. Problems: Consultation Date/Type/Reason Admit Date/Time March 30, 2017 at 18:53 Initial Consult Date 03/31/17 Type of Consultation: [facility] Referring Provider: HUMZA JAIME MD 24 HR Interval Summary Free Text/Dictation Successful IR placement of perc biliary drain in to the right biliary system with removal of pus. Exam/Review of Systems Vital Signs Vitals Vital Signs Date Time Temp Pulse Resp B/P Pulse Ox O2 Delivery O2 Flow Rate FiO2 04/04/17 18:55 44 91/51 04/04/17 12:32 18 99 04/04/17 12:02 Room Air 04/04/17 11:56 98.0 Intake and Output 04/03/17 04/03/17 04/04/17 15:00 23:00 07:00 Intake Total 900 ml 800 ml Balance 900 ml 800 ml Exam Constitutional: alert, oriented, very thin, slightly tired, jaundice Psych: nl mood/affect Head: normocephalic Eyes: EOMI, sclera anicteric, nl lids ENMT: nl external ears & nose, nl lips & teeth, nl nasal mucosa & septum Respiratory: clear to auscultation, normal air movement Cardiovascular: regular rate and rhythm Gastrointestinal: soft, diffuse abdominal tenderness Musculoskeletal: nl extremities to inspection Neurological: FIELD ADMINISTRATIVE ASSISTANT II-XII intact Results Result Diagram: 04/04/17 1311 04/04/17 1529 Results 24 hrs Laboratory Tests Test 04/03/17 23:35 04/04/17 13:11 04/04/17 15:29 Vancomycin Level Trough 17.8 White Blood Count 8.1 # Red Blood Count 3.25 L Hemoglobin 9.5 L Hematocrit 30.6 L Mean Corpuscular Volume 94.2 Mean Corpuscular Hemoglobin 29.2 Mean Corpuscular Hemoglobin Concent 31.0 L Red Cell Distribution Width 18.5 H Platelet Count 625 H Mean Platelet Volume 9.3 Neutrophils % 87.5 H Lymphocytes % 7.9 L Monocytes % 0.7 Eosinophils % 0.0 Basophils % 0.1 Nucleated Red Blood Cells % 0.0 Neutrophils # 7.1 Lymphocytes # 0.6 L Monocytes # 0.1 L Eosinophils # 0.0 Basophils # 0.0 Nucleated Red Blood Cells # 0.0 Sodium Level 140 Potassium Level 2.9 *L Chloride Level 106 Carbon Dioxide Level 26 Anion Gap 11 Blood Urea Nitrogen 17 Creatinine 0.61 Glucose Level 97 Calcium Level 8.8 Medications Medications Current Medications Ondansetron HCl (Zofran Inj) 4 mg Q6H PRN IV NAUSEA AND/OR VOMITING; Start at 19:30 Acetaminophen (Tylenol Tab) 650 mg Q6H PRN PO PAIN LEVEL 1-3 OR FEVER; Start at 19:30 Docusate Sodium (Colace) 100 mg Q12H PRN PO CONSTIPATION; Start 03/30/17 at 19: 30 Magnesium Hydroxide (Milk Of Mag) 30 ml DAILY PRN PO CONSTIPATION; Start at 19:30 Sodium Biphosphate/ Sodium Phosphate (Fleet Enema) 133 ml DAILY PRN [place] CONSTIPATION; Start 03/30/17 at 19:30 Pantoprazole (Protonix Iv) 40 mg DAILY@06 IV Last administered on 04/04/17 07: 00; Admin Dose 40 MG; Start 03/31/17 at 06:00 Lorazepam 0.5 mg 0.5 mg Q6H PRN IV ANXIETY; Start 03/30/17 at 19:30 Sodium Chloride 1,000 ml @ 100 mls/hr Q10H IV Last administered on 04/04/17 07:02; Admin Dose 100 MLS/HR; Start 03/30/17 at 19:27 Piperacillin Sod/ Tazobactam Sod (Zosyn 3.375gm/ 100 ml (Pmx)) 100 ml @ 200 mls /hr Q6 IVPB Last administered on 04/04/17 18:42; Admin Dose 200 MLS/HR; Start 03/31/17 at 00:00 Vancomycin HCl (Vanco Iv Per Pharmacy) VANCOMYCIN PER PHARMACY NOTE XX ; Start 03/30/17 at 19:30 Hydralazine HCl (Apresoline) 10 mg Q6H PRN IV ELEVATED BLOOD PRESSURE; Start at 19:30 Nitroglycerin (Nitroglycerin (Sl Tab) 0.4 Mg) 1 tab Q5M PRN SL ANGINA; Start at 19:30 Escitalopram Oxalate (Lexapro) 10 mg DAILY PO Last administered on 04/03/17 08 :48; Admin Dose 10 MG; Start 03/31/17 at 09:00 Hydromorphone HCl (Dilaudid SUPERVISOR ORNAMENTAL IRONWORKING) MG/HR CONTINUOUS R... Q4PCA IV Last administered on 03/31/17 15:09; Admin Dose 6 MG; Start 03/31/17 at 13:30 Methylprednisolone Sodium Succinate 60 mg 60 mg Q8 IV Last administered on 04/04 13:25; Admin Dose 60 MG; Start 03/31/17 at 14:00 Vancomycin HCl 750 mg/Sodium Chloride 150 ml @ 75 mls/hr Q12H IVPB Last administered on 04/04/17 15:50; Admin Dose 75 MLS/HR; Start 04/04/17 at 15:00 Potassium Chloride (KCl 40 MEQ/250 ML NS) 250 ml @ 62.5 mls/hr ONCE ONCE IVPB Last administered on 04/04/17 18:42; Admin Dose 62.5 MLS/HR; Start 04/04/17 at 16:30; Stop 04/04/17 at 20:29 KIN ESTEBAN MD April 04, 2017 19:55
[2017-04-05] VITALS (14 sets, daily range): BP systolic 99–114; BP diastolic 60–66; PULSE 37–144; RESP 18–20
[2017-04-05] MEDS: PIPER-TAZO 3.375 GM IV (PMX) 100 ML IVPB SCH ×4 (01:26→17:04)
[2017-04-05] MEDS: VANCOMYCIN 750 MG in SOD CHLORIDE 0.9% 150 ML IVPB SCH ×2 (03:58→15:55)
[2017-04-05] MEDS: PANTOPRAZOLE 40 MG INJ IV SCH (06:16)
[2017-04-05] MEDS: METHYLPREDNISOLONE 125 MG INJ IV SCH ×3 (06:16→21:56)
[2017-04-05] MEDS: SOD CHLORIDE 0.9% 1,000 ML IV SCH ×2 (06:31→17:04)
[2017-04-05] MEDS: ESCITALOPRAM 10 MG TAB PO SCH (08:09)
[2017-04-05 08:13] LABS: ADD SCAN DIFF NO
[2017-04-05 08:16] LABS: BASOPHILS % 0.1 % (0.0-2.0); HEMATOCRIT 24.4 % (42.0-52.0); HEMOGLOBIN 7.9 g/dl (14.0-18.0); LYMPHOCYTES # 0.7 10^3/ul (0.8-2.9); LYMPHOCYTES % 3.6 % (15.0-51.0); MEAN CORPUSCULAR HEMOGLOBIN 29.7 pg (29.0-33.0); MEAN CORPUSCULAR HGB CONC 32.4 g/dl (32.0-37.0); MEAN CORPUSCULAR VOLUME 91.7 fl (82.0-101.0); MEAN PLATELET VOLUME 9.2 fl (7.4-10.4); MONOCYTE # 0.4 10^3/ul (0.3-0.9); MONOCYTES % 1.8 % (0.0-11.0); NEUTROPHIL # 19.3 10^3/ul (1.6-7.5); NEUTROPHILS % 93.5 % (39.0-77.0); PLATELET COUNT 602 10^3/UL (140-415); RED BLOOD COUNT 2.66 10^6/ul (4.70-6.10); RED CELL DISTRIBUTION WIDTH 18.2 % (11.5-14.5); WHITE BLOOD COUNT 20.7 10^3/ul (4.8-10.8)
--- NOTE | 2017-04-05 08:28 | PN ---
DATE: 04/05/2017 CARDIOLOGY FOLLOWUP SUBJECTIVE: Discussed with the staff. Rhythm strip was reviewed. The patient remains in marked sin us bradycardia still; however, again denies any symptoms to me. No chest pain, no palpitations, no syncope, no presyncope. He underwent the IR procedure with no cardiac complications. MEDICATIONS: Reviewed. PHYSICAL EXAMINATION: VITAL SIGNS: Temperature 97.5, heart rate of 47, blood pressure 111/66, respiratory rate of 18, sat urating 97%. HEENT: Normocephalic, atraumatic. Thin, cachetic-looking gentleman. CARDIOVASCULAR: Regular rate and rhythm. Bradycardic. PULMONARY: With no wheezes. GASTROINTESTINAL: Status post . Mild tenderness to palpation. EXTREMITIES: No significant edema. NEUROLOGIC: Awake and alert. PSYCHIATRIC: Anxious, but pleasant. Thin, with jaundice noticed. LABORATORY: From last night: Sodium 140, potassium 2.9, BUN of 17, creatinine 0.61, glucose of 97. ASSESSMENT AND PLAN: 1. Sick sinus syndrome with marked sinus bradycardia. 2. History of lymphoma, cholangiocarcinoma, sclerosing cholangitis. 3. Jaundice. 4. Severe malnutrition. 5. Elevated LFTs. 6. Electrolyte abnormalities and hypokalemia. RECOMMENDATIONS: Correct the electrolytes as needed. Follow up with surgical recommendations. Anti biotic as per ID recommendations. Follow with heme/onc recommendations. As long as he remains asym ptomatic and no high-degree AV block is noted, a pacemaker would not be indicated. Dictated By: POOJA CHAVEZ MD AV/JASMYNE Conf#: [id number] DID#: [id number]
--- NOTE | 2017-04-05 08:58 | CONS ---
Date/Time of Note Date/Time of Note DATE: 04/05/17 TIME: 08:38 Assessment/Plan Assessment/Plan Additional Assessment/Plan Transaminitis Evaluate if 2/2 to cholangiocarcinoma vs other etiology MRCP: There is a lobular area of elevated T2 signal is seen in the central liver worrisome for a mass possibly cholangiocarcinoma and this causes prominent intrahepatic biliary ductal dilatation of both the left and right intrahepatic biliary ducts with central loss of signal at the area of the mass. Prominent hepatomegaly is seen with findings suggestive for portal hypertension. Mild ascites is seen. CEA: 2.0 CA 19-9: 1420 AFP: 1.23 Trend LFTs Status post Bile duct excision with cholecystectomy, excision of extrahepatic common bile duct, and Isabell-en-Y hepaticojejunostomy s/p external biliary drainage catheter placement Surgery following Weight loss Management per Primary May benefit from nutrition consult History of cholangiocarcinoma Heme/Onc following Status post Bile duct excision with cholecystectomy, excision of extrahepatic common bile duct, and Isabell-en-Y hepaticojejunostomy. Diffuse body pain Palliative following History of ulcerative colitis Status post proctocolectomy with J-pouch creation 2005 Further recommendations depend on clinical course Patient seen in collaboration with Dr. Batres Consultation Date/Type/Reason Admit Date/Time March 30, 2017 at 18:53 Initial Consult Date 03/31/17 Type of Consultation: GI Referring Provider: HUMZA JAIME MD 24 HR Interval Summary Free Text/Dictation LFTs slowly trending downward s/p external biliary drainage catheter placement irene diet Exam/Review of Systems Vital Signs Vitals Vital Signs Date Time Temp Pulse Resp B/P Pulse Ox O2 Delivery O2 Flow Rate FiO2 04/05/17 08:00 42 04/05/17 07:36 97.5 18 111/66 97 04/04/17 12:02 Room Air Intake and Output 04/04/17 04/04/17 04/05/17 15:00 23:00 07:00 Intake Total 1550 ml 400 ml 1250 ml Output Total 10 ml 30 ml Balance 1540 ml 400 ml 1220 ml Exam Constitutional: alert, oriented, very thin, slightly tired, jaundice Psych: nl mood/affect Head: normocephalic Eyes: EOMI, sclera anicteric, nl lids ENMT: nl external ears & nose, nl lips & teeth, nl nasal mucosa & septum Respiratory: clear to auscultation, normal air movement Cardiovascular: regular rate and rhythm Gastrointestinal: soft, diffuse abdominal tenderness Musculoskeletal: nl extremities to inspection Neurological: LACQUER SHADER II-XII intact Results Result Diagram: 04/04/17 1311 04/04/17 1529 Results 24 hrs Laboratory Tests Test 04/04/17 13:11 04/04/17 15:29 White Blood Count 8.1 # Red Blood Count 3.25 L Hemoglobin 9.5 L Hematocrit 30.6 L Mean Corpuscular Volume 94.2 Mean Corpuscular Hemoglobin 29.2 Mean Corpuscular Hemoglobin Concent 31.0 L Red Cell Distribution Width 18.5 H Platelet Count 625 H Mean Platelet Volume 9.3 Neutrophils % 87.5 H Lymphocytes % 7.9 L Monocytes % 0.7 Eosinophils % 0.0 Basophils % 0.1 Nucleated Red Blood Cells % 0.0 Neutrophils # 7.1 Lymphocytes # 0.6 L Monocytes # 0.1 L Eosinophils # 0.0 Basophils # 0.0 Nucleated Red Blood Cells # 0.0 Sodium Level 140 Potassium Level 2.9 *L Chloride Level 106 Carbon Dioxide Level 26 Anion Gap 11 Blood Urea Nitrogen 17 Creatinine 0.61 Glucose Level 97 Calcium Level 8.8 Medications Medications Current Medications Ondansetron HCl (Zofran Inj) 4 mg Q6H PRN IV NAUSEA AND/OR VOMITING; Start at 19:30 Acetaminophen (Tylenol Tab) 650 mg Q6H PRN PO PAIN LEVEL 1-3 OR FEVER; Start at 19:30 Docusate Sodium (Colace) 100 mg Q12H PRN PO CONSTIPATION; Start 03/30/17 at 19: 30 Magnesium Hydroxide (Milk Of Mag) 30 ml DAILY PRN PO CONSTIPATION; Start at 19:30 Sodium Biphosphate/ Sodium Phosphate (Fleet Enema) 133 ml DAILY PRN [place] CONSTIPATION; Start 03/30/17 at 19:30 Pantoprazole (Protonix Iv) 40 mg DAILY@06 IV Last administered on 04/05/17 06: 16; Admin Dose 40 MG; Start 03/31/17 at 06:00 Lorazepam 0.5 mg 0.5 mg Q6H PRN IV ANXIETY; Start 03/30/17 at 19:30 Sodium Chloride 1,000 ml @ 100 mls/hr Q10H IV Last administered on 04/05/17 06:31; Admin Dose 100 MLS/HR; Start 03/30/17 at 19:27 Piperacillin Sod/ Tazobactam Sod (Zosyn 3.375gm/ 100 ml (Pmx)) 100 ml @ 200 mls /hr Q6 IVPB Last administered on 04/05/17 06:17; Admin Dose 200 MLS/HR; Start 03/31/17 at 00:00 Vancomycin HCl (Vanco Iv Per Pharmacy) VANCOMYCIN PER PHARMACY NOTE XX ; Start 03/30/17 at 19:30 Hydralazine HCl (Apresoline) 10 mg Q6H PRN IV ELEVATED BLOOD PRESSURE; Start at 19:30 Nitroglycerin (Nitroglycerin (Sl Tab) 0.4 Mg) 1 tab Q5M PRN SL ANGINA; Start at 19:30 Escitalopram Oxalate (Lexapro) 10 mg DAILY PO Last administered on 04/05/17 08 :09; Admin Dose 10 MG; Start 03/31/17 at 09:00 Hydromorphone HCl (Dilaudid RABBIT FANCIER) MG/HR CONTINUOUS R... Q4PCA IV Last administered on 03/31/17 15:09; Admin Dose 6 MG; Start 03/31/17 at 13:30 Methylprednisolone Sodium Succinate 60 mg 60 mg Q8 IV Last administered on 04/05 06:16; Admin Dose 60 MG; Start 03/31/17 at 14:00 Vancomycin HCl/ Sodium Chloride (Vancocin/NS) 150 ml @ 75 mls/hr Q12H IVPB Last administered on 04/05/17 03:58; Admin Dose 75 MLS/HR; Start 04/04/17 at 15 :00 ADAM ARTIS April 05, 2017 08:57
[2017-04-05 09:07] LABS: CALCIUM 8.8 mg/dl (8.4-10.2); CREATININE 0.66 mg/dl (0.61-1.24); POTASSIUM 3.7 mmol/L (3.5-5.1)
[2017-04-05 11:40] LABS: WHITE BLOOD COUNT 21.1 10^3/ul (4.8-10.8)
[2017-04-05 16:21] LABS: HEMATOCRIT 24.3 % (42.0-52.0); HEMOGLOBIN 7.7 g/dl (14.0-18.0)
--- NOTE | 2017-04-05 17:55 | PN ---
Date/Time of Note Date/Time of Note DATE: 04/05/17 TIME: 17:52 Assessment/Plan Lines/Catheters IV Catheter Type (from Nrs): Peripheral IV Andrews in Place (from Nrs): No Assessment/Plan Assessment/Plan [facility] Progress Note Date of Service: 04/05/17 Today's Impression & Plan: Overall stable. With above assessment, I've recommended the following for today: 1. Continued aggressive medical management with broad spec antimicrobials for the next few days 2. Aggressive nutritional support with increased oral intake. 3. Check labs. 4. Will attempt to set up possible stenting across the anastomosis on Saturday with IR Thank you again for your great care of this very pleasant patient and wonderful family. If there are any questions, please feel free to call me at [phone]. TOTAL VISIT TIME: 20 minutes of which more than half was spent in [id number] discussion with the patient, possibly including family, as well as coordination of care between multiple physicians and providers. Disclaimer: Inadvertent spelling or grammatical errors are likely due to EHR/ dictation software use and do not reflect on the overall quality of patient care. Updated clinical summary: A very pleasant 61-year-old gentleman with significant past medical history including ulcerative colitis status post total proctocolectomy and ileoanal pouch as well as a number of other medical issues who was diagnosed with cholangiocarcinoma and underwent a radical bile duct resection that included extrahepatic bile duct and gallbladder at [facility], 2016, with final diagnosis of cholangiocarcinoma with 1/8 lymph node positive disease as well as low-grade dysplasia and carcinoma in situ at the proximal margin. The patient was readmitted to [facility] after a 2 month hospital stay at [facility] with increasing weakness, jaundice, and diffuse body pain. S/p perc drainage of right biliary system 04/03/17. COMORBIDITIES: 1. History of ulcerative colitis status post total proctocolectomy and ileoanal pouch. 2. Diagnosis of primary sclerosing cholangitis since 2008 being cared for at various institutions such as [facility] and by various physicians with involvement of Dr. Krystian Adkins for hepatology. 3. History of hospitalization at [facility] for bile duct obstruction from mid December to early March with bile duct excision with cholecystectomy with removal of extrahepatic bile duct and Isabell-en-Y hepaticojejunostomy on 07/2017 with the above-mentioned pathology. 4. Chronic back pain, mainly lower, for the last 5 to 6 years. 5. Significant weight loss of more than 20 to 30 pounds over the last 6 months. 6. No history of lymphoma (note that this was reported erroneously in the patient's chart. The patient does not report any history of lymphoma in the past and that is also corroborated by the patient's family). 7. Status post multiple ERCPs and stenting in the past since 2005. 8. Elevated alpha fetoprotein 1.8 in 12/2016. 9. Elevated CA19-9 of 272.9 in 12/2016. 10. Normal CEA at 1.6 on 01/14/2017. 11. Status post sigmoidoscopy, 01/16/2017, showing moderate pouchitis and negative for dysplasia or malignancy. 12. S/p perc drainage of right biliary system 04/03/17. Subjective: No major events or complaints; no major abd pain and under control with medications; no n/v/d; no sob or cp; + flatus; + BM and normal; minimal activity Objective: Vitals: See below Exam: GENERAL: On exam, the patient was laying in bed and appeared to be comfortable and in no acute distress. ABDOMEN: Soft, nontender and nondistended. Incisions are clean, dry and intact without any evidence of erythema, edema, discharge, or hernia. R biliary drain with purulent fluid in the bag. There are no peritoneal signs or guarding. SKIN: Skin appears to be jaundiced and feels warm to touch. NEUROLOGIC: Patient is awake, alert, and follows commands appropriately. Exam/Review of Systems Vital Signs Vitals Vital Signs Date Time Temp Pulse Resp B/P Pulse Ox O2 Delivery O2 Flow Rate FiO2 04/05/17 16:00 53 04/05/17 15:44 98.5 18 105/64 97 04/04/17 12:02 Room Air Intake and Output 04/04/17 04/04/17 04/05/17 15:00 23:00 07:00 Intake Total 1550 ml 400 ml 1250 ml Output Total 10 ml 30 ml Balance 1540 ml 400 ml 1220 ml Results Result Diagram: 04/05/17 1600 04/05/17 0806 ZOE GOYAL M.D. April 05, 2017 17:55
--- NOTE | 2017-04-05 18:21 | CONS ---
Date/Time of Note Date/Time of Note DATE: 04/05/17 TIME: 18:18 Assessment/Plan Assessment/Plan Chief Complaint/Hosp Course A/P 1. 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 postop , NOW WITH Metastatic dis in the liver lobular area of elevated T2 signal is seen in the central liver worrisome for a mass possibly cholangiocarcinoma and this causes prominent intrahepatic biliary ductal dilatation of both the left and right intrahepatic biliary ducts with central loss of signal at the area of the mass. CT and MRI- REVIEWED TUMOR MARKERS : ca 19-9 1420 , ? 2 to tumor progression hepatobiliary consult noted- D/W Kt TRAORE POST drain placement in the right lobe of the liver- c/w abscess for possible stenting across the anastomosis on Saturday with IR 2. Obstructive jaundice. Stable, ro stricture/recurrent tumor. MRCP/GI eval, hepatobiliary surgery consult- REVIEWED surgical consult Dr Anderson POST biliary drainage by interventional radiology 3. Chronic Crohn's disease status post total proctocolectomy with J-pouch creation 2005. 4. Chronic primary sclerosing cholangitis w cholangiocarcinoma. Needs advanced care planning evaluated. Poor prognosis. Performance status questionable at this time for chemotherapy & bilirubin needs some improvement. 5. Malnutrition; oral feeds/Megace vs TPN 6. Active pouchitis? 7. Postop day 16 bd excision w cholecystectomy, excision of extrahepatic cbd and Isabell-en-Y hepaticojejunostomy. 8. Failure to thrive, may need snf 9. Anemia 10. Reactive thrombocytosis 11. Dyslipidemia. Problems: Consultation Date/Type/Reason Admit Date/Time March 30, 2017 at 18:53 Initial Consult Date 03/31/17 Type of Consultation: [facility] Referring Provider: HUMZA JAIME MD 24 HR Interval Summary Free Text/Dictation ALL NOTED POST DRAIN FELLING BETTER for possible stenting across the anastomosis on Saturday with IR Exam/Review of Systems Vital Signs Vitals Vital Signs Date Time Temp Pulse Resp B/P Pulse Ox O2 Delivery O2 Flow Rate FiO2 04/05/17 16:00 53 04/05/17 15:44 98.5 18 105/64 97 04/04/17 12:02 Room Air Intake and Output 04/04/17 04/04/17 04/05/17 15:00 23:00 07:00 Intake Total 1550 ml 400 ml 1250 ml Output Total 10 ml 30 ml Balance 1540 ml 400 ml 1220 ml Exam Constitutional: alert, oriented, very thin, slightly tired, jaundice Psych: nl mood/affect Head: normocephalic Eyes: EOMI, sclera anicteric, nl lids ENMT: nl external ears & nose, nl lips & teeth, nl nasal mucosa & septum Respiratory: clear to auscultation, normal air movement Cardiovascular: regular rate and rhythm Gastrointestinal: soft, diffuse abdominal tenderness Musculoskeletal: nl extremities to inspection Neurological: MATERIALS RECYCLER II-XII intact Results Result Diagram: 04/05/17 1600 04/05/17 0806 Results 24 hrs Laboratory Tests Test 04/05/17 08:06 04/05/17 16:00 White Blood Count 20.7 #H Red Blood Count 2.66 L Hemoglobin 7.9 L 7.7 L Hematocrit 24.4 #L 24.3 L Mean Corpuscular Volume 91.7 Mean Corpuscular Hemoglobin 29.7 Mean Corpuscular Hemoglobin Concent 32.4 Red Cell Distribution Width 18.2 H Platelet Count 602 H Mean Platelet Volume 9.2 Neutrophils % 93.5 H Lymphocytes % 3.6 L Monocytes % 1.8 Eosinophils % 0.0 Basophils % 0.1 Nucleated Red Blood Cells % 0.0 Neutrophils # 19.3 H Lymphocytes # 0.7 L Monocytes # 0.4 Eosinophils # 0.0 Basophils # 0.0 Nucleated Red Blood Cells # 0.0 Sodium Level 138 Potassium Level 3.7 Chloride Level 107 Carbon Dioxide Level 26 Anion Gap 9 Blood Urea Nitrogen 19 Creatinine 0.66 Glucose Level 114 Calcium Level 8.8 Medications Medications Current Medications Ondansetron HCl (Zofran Inj) 4 mg Q6H PRN IV NAUSEA AND/OR VOMITING; Start at 19:30 Acetaminophen (Tylenol Tab) 650 mg Q6H PRN PO PAIN LEVEL 1-3 OR FEVER; Start at 19:30 Docusate Sodium (Colace) 100 mg Q12H PRN PO CONSTIPATION; Start 03/30/17 at 19: 30 Magnesium Hydroxide (Milk Of Mag) 30 ml DAILY PRN PO CONSTIPATION; Start at 19:30 Sodium Biphosphate/ Sodium Phosphate (Fleet Enema) 133 ml DAILY PRN [place] CONSTIPATION; Start 03/30/17 at 19:30 Pantoprazole (Protonix Iv) 40 mg DAILY@06 IV Last administered on 04/05/17 06: 16; Admin Dose 40 MG; Start 03/31/17 at 06:00 Lorazepam 0.5 mg 0.5 mg Q6H PRN IV ANXIETY; Start 03/30/17 at 19:30 Sodium Chloride 1,000 ml @ 100 mls/hr Q10H IV Last administered on 04/05/17 17:04; Admin Dose 100 MLS/HR; Start 03/30/17 at 19:27 Piperacillin Sod/ Tazobactam Sod (Zosyn 3.375gm/ 100 ml (Pmx)) 100 ml @ 200 mls /hr Q6 IVPB Last administered on 04/05/17 17:04; Admin Dose 200 MLS/HR; Start 03/31/17 at 00:00 Vancomycin HCl (Vanco Iv Per Pharmacy) VANCOMYCIN PER PHARMACY NOTE XX ; Start 03/30/17 at 19:30 Hydralazine HCl (Apresoline) 10 mg Q6H PRN IV ELEVATED BLOOD PRESSURE; Start at 19:30 Nitroglycerin (Nitroglycerin (Sl Tab) 0.4 Mg) 1 tab Q5M PRN SL ANGINA; Start at 19:30 Escitalopram Oxalate (Lexapro) 10 mg DAILY PO Last administered on 04/05/17 08 :09; Admin Dose 10 MG; Start 03/31/17 at 09:00 Hydromorphone HCl (Dilaudid [employer] TENDER) MG/HR CONTINUOUS R... Q4PCA IV Last administered on 03/31/17 15:09; Admin Dose 6 MG; Start 03/31/17 at 13:30 Methylprednisolone Sodium Succinate 60 mg 60 mg Q8 IV Last administered on 04/05 15:56; Admin Dose 60 MG; Start 03/31/17 at 14:00 Vancomycin HCl/ Sodium Chloride (Vancocin/NS) 150 ml @ 75 mls/hr Q12H IVPB Last administered on 04/05/17 15:55; Admin Dose 75 MLS/HR; Start 04/04/17 at 15 :00 Miscellaneous Information (*Rx Drug Level Order Reminder*) 1 ONCE ONCE XX ; Start 04/06/17 at 14:00; Stop 04/06/17 at 14:01 KIN ESTEBAN MD April 05, 2017 18:21
--- NOTE | 2017-04-05 23:20 | PN ---
Date/Time of Note Date/Time of Note DATE: 04/05/17 TIME: 23:19 Assessment/Plan VTE Prophylaxis VTE Prophylaxis Intervention: SCD's Lines/Catheters IV [facility]from [facility]): Peripheral IV Urinary Cath still in place: No Assessment/Plan Assessment/Plan 1. Obstructive jaundice 2/2 Biliary tumour causing Obstruction, S/p hepatobiliary consult- today S/p IR Guided external drainage 2. 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 currenlty with recurrent of tumour 3. Chronic Crohn's diseasestatus post total proctocolectomy with J-pouch creation 2005. 4. Chronic primary sclerosing cholangitis w cholangiocarcinoma. Needs advanced care planning evaluated. Poor prognosis. Performance status questionable at this time for chemotherapy & bilirubin needs some improvement. 5. Severe symptomatic bradycardia with HR down to 40s 7. s/p bd excision w cholecystectomy, excision of extrahepatic cbd and Isabell-en -Y hepaticojejunostomy. 8. Failure to thrive 9. Anemia 10. Reactive thrombocytosis 11. Dyslipidemia. S/p hepatobiliary consult- s/p IR Guided external drainage - HR still low, K normal Hb 7.7- will monitor and transfusion plan as per H &O has been following for pain managemen Exam/Review of Systems Vital Signs Vitals Vital Signs Date Time Temp Pulse Resp B/P Pulse Ox O2 Delivery O2 Flow Rate FiO2 04/05/17 20:13 98.1 55 20 114/65 97 04/04/17 12:02 Room Air Intake and Output 04/04/17 04/04/17 04/05/17 15:00 23:00 07:00 Intake Total 1550 ml 400 ml 1250 ml Output Total 10 ml 30 ml Balance 1540 ml 400 ml 1220 ml Results Result Diagram: 04/05/17 1600 04/05/17 0806 Results 24 hrs Laboratory Tests Test 04/05/17 08:06 04/05/17 16:00 White Blood Count 20.7 #H Red Blood Count 2.66 L Hemoglobin 7.9 L 7.7 L Hematocrit 24.4 #L 24.3 L Mean Corpuscular Volume 91.7 Mean Corpuscular Hemoglobin 29.7 Mean Corpuscular Hemoglobin Concent 32.4 Red Cell Distribution Width 18.2 H Platelet Count 602 H Mean Platelet Volume 9.2 Neutrophils % 93.5 H Lymphocytes % 3.6 L Monocytes % 1.8 Eosinophils % 0.0 Basophils % 0.1 Nucleated Red Blood Cells % 0.0 Neutrophils # 19.3 H Lymphocytes # 0.7 L Monocytes # 0.4 Eosinophils # 0.0 Basophils # 0.0 Nucleated Red Blood Cells # 0.0 Sodium Level 138 Potassium Level 3.7 Chloride Level 107 Carbon Dioxide Level 26 Anion Gap 9 Blood Urea Nitrogen 19 Creatinine 0.66 Glucose Level 114 Calcium Level 8.8 Medications Medications Current Medications Ondansetron HCl (Zofran Inj) 4 mg Q6H PRN IV NAUSEA AND/OR VOMITING; Start at 19:30 Acetaminophen (Tylenol Tab) 650 mg Q6H PRN PO PAIN LEVEL 1-3 OR FEVER; Start at 19:30 Docusate Sodium (Colace) 100 mg Q12H PRN PO CONSTIPATION; Start 03/30/17 at 19: 30 Magnesium Hydroxide (Milk Of Mag) 30 ml DAILY PRN PO CONSTIPATION; Start at 19:30 Sodium Biphosphate/ Sodium Phosphate (Fleet Enema) 133 ml DAILY PRN [place] CONSTIPATION; Start 03/30/17 at 19:30 Pantoprazole (Protonix Iv) 40 mg DAILY@06 IV Last administered on 04/05/17 06: 16; Admin Dose 40 MG; Start 03/31/17 at 06:00 Lorazepam 0.5 mg 0.5 mg Q6H PRN IV ANXIETY; Start 03/30/17 at 19:30 Sodium Chloride 1,000 ml @ 100 mls/hr Q10H IV Last administered on 04/05/17 17:04; Admin Dose 100 MLS/HR; Start 03/30/17 at 19:27 Piperacillin Sod/ Tazobactam Sod (Zosyn 3.375gm/ 100 ml (Pmx)) 100 ml @ 200 mls /hr Q6 IVPB Last administered on 04/05/17 17:04; Admin Dose 200 MLS/HR; Start 03/31/17 at 00:00 Vancomycin HCl (Vanco Iv Per Pharmacy) VANCOMYCIN PER PHARMACY NOTE XX ; Start 03/30/17 at 19:30 Hydralazine HCl (Apresoline) 10 mg Q6H PRN IV ELEVATED BLOOD PRESSURE; Start at 19:30 Nitroglycerin (Nitroglycerin (Sl Tab) 0.4 Mg) 1 tab Q5M PRN SL ANGINA; Start at 19:30 Escitalopram Oxalate (Lexapro) 10 mg DAILY PO Last administered on 04/05/17 08 :09; Admin Dose 10 MG; Start 03/31/17 at 09:00 Hydromorphone HCl (Dilaudid [employer]IN[employer] ENGINE MECHANIC) MG/HR CONTINUOUS R... Q4PCA IV Last administered on 03/31/17 15:09; Admin Dose 6 MG; Start 03/31/17 at 13:30 Methylprednisolone Sodium Succinate 60 mg 60 mg Q8 IV Last administered on 04/05 21:56; Admin Dose 60 MG; Start 03/31/17 at 14:00 Vancomycin HCl/ Sodium Chloride (Vancocin/NS) 150 ml @ 75 mls/hr Q12H IVPB Last administered on 04/05/17 15:55; Admin Dose 75 MLS/HR; Start 04/04/17 at 15 :00 Miscellaneous Information (*Rx Drug Level Order Reminder*) 1 ONCE ONCE XX ; Start 04/06/17 at 14:00; Stop 04/06/17 at 14:01 DWIGHT NEAL MD April 05, 2017 23:20
[2017-04-06] VITALS (12 sets, daily range): BP systolic 112–141; BP diastolic 58–78; PULSE 38–120; RESP 18–20
[2017-04-06] MEDS: PIPER-TAZO 3.375 GM IV (PMX) 100 ML IVPB SCH ×4 (00:16→21:01)
[2017-04-06] MEDS ORDERED: LOPERAMIDE 2 MG CAP PO ONE (00:30)
[2017-04-06] MEDS: SOD CHLORIDE 0.9% 1,000 ML IV SCH ×2 (01:27→06:02)
[2017-04-06] MEDS: VANCOMYCIN 750 MG in SOD CHLORIDE 0.9% 150 ML IVPB SCH ×2 (03:24→15:28)
[2017-04-06] MEDS: PANTOPRAZOLE 40 MG INJ IV SCH (05:45)
[2017-04-06] MEDS: METHYLPREDNISOLONE 125 MG INJ IV SCH ×2 (05:45→21:06)
--- NOTE | 2017-04-06 09:00 | PN ---
DATE: 04/06/2017 CARDIOLOGY FOLLOWUP SUBJECTIVE: I spoke to the staff. Rhythm strip was reviewed. The patient remains in marked sinus bradycardia; however, again denies any symptoms associated, no chest pain, no palpitation, no syncop e, or presyncope associated with it. He wants to telemetry out. Discussed with the staff. MEDICATIONS: Reviewed. PHYSICAL EXAMINATION: VITAL SIGNS: Temperature 98.1, heart rate of 40, blood pressure 133/78, respiration rate of 19, sat urating 98%. HEENT: Normocephalic, atraumatic. Obese gentleman in no acute distress. Pupils are equal. CARDIOVASCULAR: Bradycardia. PULMONARY: No wheezes. GASTROINTESTINAL: Status post drainage placement. Mild tenderness to palpation. EXTREMITIES: No edema. NEUROLOGIC: Awake and alert. PSYCHIATRIC: Calm now. LABORATORY: Most recent hemoglobin is 7.7, hematocrit of 24.3. ASSESSMENT AND PLAN: 1. Sick sinus syndrome and marked sinus bradycardia. Currently he remains asymptomatic. 2. History of cancer that includes cholangiocarcinoma, sclerosing cholangitis, lymphoma, some jaund ice. 3. Severe malnutrition. 4. Elevated LFTs. 5. Electrolyte abnormalities, status post hyperkalemia. Has been corrected. RECOMMENDATIONS: Correct electrolytes as needed. Okay to discontinue the telemetry from cardiac st [facility], since the patient's heart rate, although low, has not caused any symptoms and the patient wants it out now. Antibiotics and postop care as per Internal Medicine and Surgery. Dictated By: POOJA BISHOP/JASMYNE Conf#: [id number] DID#: [id number]
[2017-04-06] MEDS: ESCITALOPRAM 10 MG TAB PO SCH (09:25)
[2017-04-06 10:38] LABS: ADD SCAN DIFF NO
[2017-04-06 10:48] LABS: ABNORMAL IP MESSAGE 1; BASOPHILS % 0.1 % (0.0-2.0); HEMATOCRIT 25.5 % (42.0-52.0); HEMOGLOBIN 8.2 g/dl (14.0-18.0); LYMPHOCYTES # 0.6 10^3/ul (0.8-2.9); LYMPHOCYTES % 2.8 % (15.0-51.0); MEAN CORPUSCULAR HEMOGLOBIN 29.8 pg (29.0-33.0); MEAN CORPUSCULAR HGB CONC 32.2 g/dl (32.0-37.0); MEAN CORPUSCULAR VOLUME 92.7 fl (82.0-101.0); MEAN PLATELET VOLUME 9.5 fl (7.4-10.4); MONOCYTE # 0.7 10^3/ul (0.3-0.9); MONOCYTES % 3.4 % (0.0-11.0); NEUTROPHILS % 92.4 % (39.0-77.0); PLATELET COUNT 516 10^3/UL (140-415); RED BLOOD COUNT 2.75 10^6/ul (4.70-6.10); RED CELL DISTRIBUTION WIDTH 19.1 % (11.5-14.5); WHITE BLOOD COUNT 21.7 10^3/ul (4.8-10.8)
[2017-04-06 10:58] LABS: POTASSIUM 3.3 mmol/L (3.5-5.1)
[2017-04-06 11:01] LABS: CREATININE 0.57 mg/dl (0.61-1.24)
[2017-04-06 11:02] LABS: CALCIUM 8.3 mg/dl (8.4-10.2)
--- NOTE | 2017-04-06 13:13 | PN ---
Date/Time of Note Date/Time of Note DATE: 04/06/17 TIME: 13:04 Assessment/Plan VTE Prophylaxis VTE Prophylaxis Intervention: SCD's Lines/Catheters IV C[facility]ter Type (from [facility]): Peripheral IV Urinary Cath still in place: No Assessment/Plan Assessment/Plan Assessment * Obstructive jaundice S/P PTBD right biliary system 04/04/2017 S/P bile duct excision with cholecystectomy excision of extrahepatic duct,and Isabell en Y hepaticojejuniostomy sec to cholangiocarcinoma MRI 03/31/2017 There is a lobular area of elevated T2 signal is seen in the central liver worrisome for a mass possibly cholangiocarcinoma and this causes prominent intrahepatic biliary ductal dilatation of both the left and right intrahepatic biliary ducts with central loss of signal at the area of the mass. Prominent hepatomegaly is seen with findings suggestive for portal hypertension. Mild ascites is seen. Surgical changes are seen of the bowel with no evidence of an obstruction. There is a fecal filled colon * Hematochezia/Anemia * History of proctocolectomy with J pouch 2005 * History of sigmoidoscopy 01/2017 moderate pouchitis,no evidence of malignancy * Intractable pain Plan * Continue present management * pain control * monitor hemoglobin and hematocrit Q6 ,transfuse 1 unit of PRBC if Hgb<7.5, 2units of PRBC if Hgb <7 Subjective 24 Hr Interval Summary Free Text/Dictation * Course reviewed with RN * Patient seen and examined * Episode of hematochezia x2 * Latest hemoglobin 8.2 * Sigmoidoscopy 01/25/2017 Arian Diaz moderate pouchitis,no evidence of malignancy Exam/Review of Systems Vital Signs Vitals Vital Signs Date Time Temp Pulse Resp B/P Pulse Ox O2 Delivery O2 Flow Rate FiO2 04/06/17 13:02 48 04/06/17 12:17 97.7 20 112/67 99 04/04/17 12:02 Room Air Intake and Output 04/05/17 04/05/17 04/06/17 15:00 23:00 07:00 Intake Total 1870 ml 0 ml Output Total 25 ml 40 ml Balance 1845 ml -40 ml Exam Constitutional: alert, frail Head: normocephalic Neck: non-tender, supple Respiratory: clear to auscultation, normal air movement Cardiovascular: nl pulses, regular rate and rhythm Gastrointestinal: bowel sounds, other (biliary drainage), soft Musculoskeletal: nl extremities to inspection Skin: nl turgor, No rash or lesions Results Result Diagram: 04/06/17 1027 04/06/17 1027 Results 24 hrs Laboratory Tests Test 04/05/17 16:00 04/06/17 10:27 Hemoglobin 7.7 L 8.2 L Hematocrit 24.3 L 25.5 L White Blood Count 21.7 H Red Blood Count 2.75 L Mean Corpuscular Volume 92.7 Mean Corpuscular Hemoglobin 29.8 Mean Corpuscular Hemoglobin Concent 32.2 Red Cell Distribution Width 19.1 H Platelet Count 516 H Mean Platelet Volume 9.5 Neutrophils % 92.4 H Lymphocytes % 2.8 L Monocytes % 3.4 Eosinophils % 0.0 Basophils % 0.1 Nucleated Red Blood Cells % 0.0 Neutrophils # 20.0 H Lymphocytes # 0.6 L Monocytes # 0.7 Eosinophils # 0.0 Basophils # 0.0 Nucleated Red Blood Cells # 0.0 Sodium Level 136 Potassium Level 3.3 L Chloride Level 102 Carbon Dioxide Level 23 Anion Gap 14 Blood Urea Nitrogen 16 Creatinine 0.57 L Glucose Level 132 Calcium Level 8.3 L Medications Medications Current Medications Ondansetron HCl (Zofran Inj) 4 mg Q6H PRN IV NAUSEA AND/OR VOMITING; Start at 19:30 Acetaminophen (Tylenol Tab) 650 mg Q6H PRN PO PAIN LEVEL 1-3 OR FEVER; Start at 19:30 Docusate Sodium (Colace) 100 mg Q12H PRN PO CONSTIPATION; Start 03/30/17 at 19: 30 Magnesium Hydroxide (Milk Of Mag) 30 ml DAILY PRN PO CONSTIPATION; Start at 19:30 Sodium Biphosphate/ Sodium Phosphate (Fleet Enema) 133 ml DAILY PRN [place] CONSTIPATION; Start 03/30/17 at 19:30 Pantoprazole (Protonix Iv) 40 mg DAILY@06 IV Last administered on 04/06/17 05: 45; Admin Dose 40 MG; Start 03/31/17 at 06:00 Lorazepam 0.5 mg 0.5 mg Q6H PRN IV ANXIETY; Start 03/30/17 at 19:30 Sodium Chloride 1,000 ml @ 100 mls/hr Q10H IV Last administered on 04/06/17 06:02; Admin Dose 100 MLS/HR; Start 03/30/17 at 19:27 Piperacillin Sod/ Tazobactam Sod (Zosyn 3.375gm/ 100 ml (Pmx)) 100 ml @ 200 mls /hr Q6 IVPB Last administered on 04/06/17 12:34; Admin Dose 200 MLS/HR; Start 03/31/17 at 00:00 Vancomycin HCl (Vanco Iv Per Pharmacy) VANCOMYCIN PER PHARMACY NOTE XX ; Start 03/30/17 at 19:30 Hydralazine HCl (Apresoline) 10 mg Q6H PRN IV ELEVATED BLOOD PRESSURE; Start at 19:30 Nitroglycerin (Nitroglycerin (Sl Tab) 0.4 Mg) 1 tab Q5M PRN SL ANGINA; Start at 19:30 Escitalopram Oxalate (Lexapro) 10 mg DAILY PO Last administered on 04/06/17 09 :25; Admin Dose 10 MG; Start 03/31/17 at 09:00 Hydromorphone HCl MG/HR CONTINUOUS R... Q4PCA IV Last administered on 15:09; Admin Dose 6 MG; Start 03/31/17 at 13:30 Vancomycin HCl/ Sodium Chloride (Vancocin/NS) 150 ml @ 75 mls/hr Q12H IVPB Last administered on 04/06/17 03:24; Admin Dose 75 MLS/HR; Start 04/04/17 at 15 :00 Miscellaneous Information (*Rx Drug Level Order Reminder*) 1 ONCE ONCE XX ; Start 04/06/17 at 14:00; Stop 04/06/17 at 14:01 Methylprednisolone Sodium Succinate (Solu-Medrol) 60 mg Q12 IV ; Start 04/06/17 at 21:00 BRAD PRADO MD April 06, 2017 13:13
--- NOTE | 2017-04-06 13:49 | PN ---
Date/Time of Note Date/Time of Note DATE: 04/06/17 TIME: 13:46 Assessment/Plan VTE Prophylaxis VTE Prophylaxis Intervention: SCD's Lines/Catheters IV [facility]ter Type (from [facility]): Peripheral IV Urinary Cath still in place: No Assessment/Plan Assessment/Plan 1. Obstructive jaundice 2/2 Biliary tumour causing Obstruction, S/p hepatobiliary consult- today S/p IR Guided external drainage 2. 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 currenlty with recurrent of tumour 3. Chronic Crohn's diseasestatus post total proctocolectomy with J-pouch creation 2005. 4. Chronic primary sclerosing cholangitis w cholangiocarcinoma. Needs advanced care planning evaluated. Poor prognosis. Performance status questionable at this time for chemotherapy & bilirubin needs some improvement. 5. Severe symptomatic bradycardia with HR down to 40s- now improving HR 7. s/p bd excision w cholecystectomy, excision of extrahepatic cbd and Isabell-en -Y hepaticojejunostomy. 8. Failure to thrive 9. Anemia 10. Reactive thrombocytosis 11. Dyslipidemia. S/p hepatobiliary consult- s/p IR Guided external drainage -Hb stable, will transfuse prn will keep pt in telemetry for NSVTach D/v IVF NS Subjective 24 Hr Interval Summary Free Text/Dictation leg edema, BP stable, Afebrile, drain in place, HR more stable Exam/Review of Systems Vital Signs Vitals Vital Signs Date Time Temp Pulse Resp B/P Pulse Ox O2 Delivery O2 Flow Rate FiO2 04/06/17 13:02 48 04/06/17 12:17 97.7 20 112/67 99 04/04/17 12:02 Room Air Intake and Output 04/05/17 04/05/17 04/06/17 15:00 23:00 07:00 Intake Total 1870 ml 0 ml Output Total 25 ml 40 ml Balance 1845 ml -40 ml Exam HEENT: Normocephalic, atraumatic. Thin gentleman in no acute distress. CARDIOVASCULAR: Bradycardic, systolic murmur. PULMONARY: With no wheezes or rhonchi. GASTROINTESTINAL: Status post previous surgeries. Mild tenderness to palpation. EXTREMITIES: With trivial edema. NEUROLOGIC: Awake and alert. PSYCHIATRIC: Appears to be anxious, but otherwise stable. Results Result Diagram: 04/06/17 1027 04/06/17 1027 Results 24 hrs Laboratory Tests Test 04/05/17 16:00 04/06/17 10:27 Hemoglobin 7.7 L 8.2 L Hematocrit 24.3 L 25.5 L White Blood Count 21.7 H Red Blood Count 2.75 L Mean Corpuscular Volume 92.7 Mean Corpuscular Hemoglobin 29.8 Mean Corpuscular Hemoglobin Concent 32.2 Red Cell Distribution Width 19.1 H Platelet Count 516 H Mean Platelet Volume 9.5 Neutrophils % 92.4 H Lymphocytes % 2.8 L Monocytes % 3.4 Eosinophils % 0.0 Basophils % 0.1 Nucleated Red Blood Cells % 0.0 Neutrophils # 20.0 H Lymphocytes # 0.6 L Monocytes # 0.7 Eosinophils # 0.0 Basophils # 0.0 Nucleated Red Blood Cells # 0.0 Sodium Level 136 Potassium Level 3.3 L Chloride Level 102 Carbon Dioxide Level 23 Anion Gap 14 Blood Urea Nitrogen 16 Creatinine 0.57 L Glucose Level 132 Calcium Level 8.3 L Medications Medications Current Medications Ondansetron HCl (Zofran Inj) 4 mg Q6H PRN IV NAUSEA AND/OR VOMITING; Start at 19:30 Acetaminophen (Tylenol Tab) 650 mg Q6H PRN PO PAIN LEVEL 1-3 OR FEVER; Start at 19:30 Docusate Sodium (Colace) 100 mg Q12H PRN PO CONSTIPATION; Start 03/30/17 at 19: 30 Magnesium Hydroxide (Milk Of Mag) 30 ml DAILY PRN PO CONSTIPATION; Start at 19:30 Sodium Biphosphate/ Sodium Phosphate (Fleet Enema) 133 ml DAILY PRN [place] CONSTIPATION; Start 03/30/17 at 19:30 Pantoprazole (Protonix Iv) 40 mg DAILY@06 IV Last administered on 04/06/17 05: 45; Admin Dose 40 MG; Start 03/31/17 at 06:00 Lorazepam 0.5 mg 0.5 mg Q6H PRN IV ANXIETY; Start 03/30/17 at 19:30 Piperacillin Sod/ Tazobactam Sod (Zosyn 3.375gm/ 100 ml (Pmx)) 100 ml @ 200 mls /hr Q6 IVPB Last administered on 04/06/17 12:34; Admin Dose 200 MLS/HR; Start 03/31/17 at 00:00 Vancomycin HCl (Vanco Iv Per Pharmacy) VANCOMYCIN PER PHARMACY NOTE XX ; Start 03/30/17 at 19:30 Hydralazine HCl (Apresoline) 10 mg Q6H PRN IV ELEVATED BLOOD PRESSURE; Start at 19:30 Nitroglycerin (Nitroglycerin (Sl Tab) 0.4 Mg) 1 tab Q5M PRN SL ANGINA; Start at 19:30 Escitalopram Oxalate (Lexapro) 10 mg DAILY PO Last administered on 04/06/17 09 :25; Admin Dose 10 MG; Start 03/31/17 at 09:00 Hydromorphone HCl MG/HR CONTINUOUS R... Q4PCA IV Last administered on 15:09; Admin Dose 6 MG; Start 03/31/17 at 13:30 Vancomycin HCl/ Sodium Chloride (Vancocin/NS) 150 ml @ 75 mls/hr Q12H IVPB Last administered on 04/06/17 03:24; Admin Dose 75 MLS/HR; Start 04/04/17 at 15 :00 Miscellaneous Information (*Rx Drug Level Order Reminder*) 1 ONCE ONCE XX ; Start 04/06/17 at 14:00; Stop 04/06/17 at 14:01 Methylprednisolone Sodium Succinate (Solu-Medrol) 60 mg Q12 IV ; Start 04/06/17 at 21:00 DWIGHT NEAL MD April 06, 2017 13:49
--- NOTE | 2017-04-06 15:40 | PN ---
Date/Time of Note Date/Time of Note DATE: 04/06/17 TIME: 15:38 Assessment/Plan Lines/Catheters IV Catheter Type (from Nrs): Peripheral IV Andrews in Place (from Nrs): No Assessment/Plan Assessment/Plan [facility] Progress Note Date of Service: 04/06/17 Today's Impression & Plan: Overall stable. Understandably frustrated. Also anxious. Had another long discussion with patient and family and answered all questions. With above assessment, I've recommended the following for today: 1. Continued aggressive medical management with broad spec antimicrobials for the next few days 2. Aggressive nutritional support with increased oral intake. 3. Check labs. 4. Will attempt to set up possible stenting across the anastomosis on Saturday with IR 5. Maximize antidepressants Thank you again for your great care of this very pleasant patient and wonderful family. If there are any questions, please feel free to call me at [phone]. TOTAL VISIT TIME: 20 minutes of which more than half was spent in [id number] discussion with the patient, possibly including family, as well as coordination of care between multiple physicians and providers. Disclaimer: Inadvertent spelling or grammatical errors are likely due to EHR/ dictation software use and do not reflect on the overall quality of patient care. Updated clinical summary: A very pleasant 61-year-old gentleman with significant past medical history including ulcerative colitis status post total proctocolectomy and ileoanal pouch as well as a number of other medical issues who was diagnosed with cholangiocarcinoma and underwent a radical bile duct resection that included extrahepatic bile duct and gallbladder at [facility], 2016, with final diagnosis of cholangiocarcinoma with 1/8 lymph node positive disease as well as low-grade dysplasia and carcinoma in situ at the proximal margin. The patient was readmitted to [facility] after a 2 month hospital stay at [facility] with increasing weakness, jaundice, and diffuse body pain. S/p perc drainage of right biliary system 04/03/17. COMORBIDITIES: 1. History of ulcerative colitis status post total proctocolectomy and ileoanal pouch. 2. Diagnosis of primary sclerosing cholangitis since 2008 being cared for at various institutions such as [facility] and by various physicians with involvement of Dr. Krystian Adkins for hepatology. 3. History of hospitalization at [facility] for bile duct obstruction from mid December to early March with bile duct excision with cholecystectomy with removal of extrahepatic bile duct and Isabell-en-Y hepaticojejunostomy on 07/2017 with the above-mentioned pathology. 4. Chronic back pain, mainly lower, for the last 5 to 6 years. 5. Significant weight loss of more than 20 to 30 pounds over the last 6 months. 6. No history of lymphoma (note that this was reported erroneously in the patient's chart. The patient does not report any history of lymphoma in the past and that is also corroborated by the patient's family). 7. Status post multiple ERCPs and stenting in the past since 2005. 8. Elevated alpha fetoprotein 1.8 in 12/2016. 9. Elevated CA19-9 of 272.9 in 12/2016. 10. Normal CEA at 1.6 on 01/14/2017. 11. Status post sigmoidoscopy, 01/16/2017, showing moderate pouchitis and negative for dysplasia or malignancy. 12. S/p perc drainage of right biliary system 04/03/17. Subjective: No major events or complaints; no major abd pain and under control with medications; no n/v/d; no sob or cp; + flatus; + BM and normal; minimal activity ; feels depressed. Objective: Vitals: See below Exam: GENERAL: On exam, the patient was laying in bed and appeared to be comfortable and in no acute distress. ABDOMEN: Soft, nontender and nondistended. Incisions are clean, dry and intact without any evidence of erythema, edema, discharge, or hernia. R biliary drain with purulent fluid in the bag. There are no peritoneal signs or guarding. SKIN: Skin appears to be jaundiced and feels warm to touch. NEUROLOGIC: Patient is awake, alert, and follows commands appropriately. Exam/Review of Systems Vital Signs Vitals Vital Signs Date Time Temp Pulse Resp B/P Pulse Ox O2 Delivery O2 Flow Rate FiO2 04/06/17 13:02 48 04/06/17 12:17 97.7 20 112/67 99 04/04/17 12:02 Room Air Intake and Output 04/05/17 04/05/17 04/06/17 15:00 23:00 07:00 Intake Total 1870 ml 0 ml Output Total 25 ml 40 ml Balance 1845 ml -40 ml Results Result Diagram: 04/06/17 1027 04/06/17 1027 ZEO GOYAL M.D. April 06, 2017 15:40
[2017-04-06] MEDS: ALBUMIN HUMAN 25% 100 ML IV SCH ×2 (18:06→23:34)
--- NOTE | 2017-04-06 20:50 | CONS ---
Date/Time of Note Date/Time of Note DATE: 04/06/17 TIME: 20:48 Assessment/Plan Assessment/Plan Chief Complaint/Hosp Course A/P 1. 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 postop , NOW WITH Metastatic dis in the liver lobular area of elevated T2 signal is seen in the central liver worrisome for a mass possibly cholangiocarcinoma and this causes prominent intrahepatic biliary ductal dilatation of both the left and right intrahepatic biliary ducts with central loss of signal at the area of the mass. CT and MRI- REVIEWED TUMOR MARKERS : ca 19-9 1420 , ? 2 to tumor progression hepatobiliary consult noted- D/W Kt TRAORE POST drain placement in the right lobe of the liver- c/w abscess for possible stenting across the anastomosis on Saturday with IR WILL CHECK LFT TOMORROW 2. Obstructive jaundice. Stable, ro stricture/recurrent tumor. MRCP/GI eval, hepatobiliary surgery consult- REVIEWED surgical f-up Dr Anderson noted POST biliary drainage by interventional radiology 3. Chronic Crohn's disease status post total proctocolectomy with J-pouch creation 2005. 4. Chronic primary sclerosing cholangitis w cholangiocarcinoma. Needs advanced care planning evaluated. Poor prognosis. Performance status questionable at this time for chemotherapy & bilirubin needs some improvement. 5. Malnutrition; oral feeds/Megace vs TPN 6. Active pouchitis? 7. Postop day 16 bd excision w cholecystectomy, excision of extrahepatic cbd and Isabell-en-Y hepaticojejunostomy. 8. Failure to thrive, may need snf 9. Anemia 10. Reactive thrombocytosis 11. Dyslipidemia. Problems: Consultation Date/Type/Reason Admit Date/Time March 30, 2017 at 18:53 Initial Consult Date 03/31/17 Type of Consultation: [facility] Referring Provider: HUMZA JAIME MD 24 HR Interval Summary Free Text/Dictation ALL NOTED S/p perc drainage of right biliary system 04/03/17. Exam/Review of Systems Vital Signs Vitals Vital Signs Date Time Temp Pulse Resp B/P Pulse Ox O2 Delivery O2 Flow Rate FiO2 04/06/17 19:40 98.0 107 18 121/67 97 04/04/17 12:02 Room Air Intake and Output 04/05/17 04/05/17 04/06/17 15:00 23:00 07:00 Intake Total 1870 ml 0 ml Output Total 25 ml 40 ml Balance 1845 ml -40 ml Exam Constitutional: alert, oriented, very thin, slightly tired, jaundice Psych: nl mood/affect Head: normocephalic Eyes: EOMI, sclera anicteric, nl lids ENMT: nl external ears & nose, nl lips & teeth, nl nasal mucosa & septum Respiratory: clear to auscultation, normal air movement Cardiovascular: regular rate and rhythm Gastrointestinal: soft, diffuse abdominal tenderness Musculoskeletal: nl extremities to inspection Neurological: CHANGE MANAGEMENT LEAD II-XII intact Results Result Diagram: 04/06/17 1027 04/06/17 1027 Results 24 hrs Laboratory Tests Test 04/06/17 10:27 04/06/17 14:55 White Blood Count 21.7 H Red Blood Count 2.75 L Hemoglobin 8.2 L Hematocrit 25.5 L Mean Corpuscular Volume 92.7 Mean Corpuscular Hemoglobin 29.8 Mean Corpuscular Hemoglobin Concent 32.2 Red Cell Distribution Width 19.1 H Platelet Count 516 H Mean Platelet Volume 9.5 Neutrophils % 92.4 H Lymphocytes % 2.8 L Monocytes % 3.4 Eosinophils % 0.0 Basophils % 0.1 Nucleated Red Blood Cells % 0.0 Neutrophils # 20.0 H Lymphocytes # 0.6 L Monocytes # 0.7 Eosinophils # 0.0 Basophils # 0.0 Nucleated Red Blood Cells # 0.0 Sodium Level 136 Potassium Level 3.3 L Chloride Level 102 Carbon Dioxide Level 23 Anion Gap 14 Blood Urea Nitrogen 16 Creatinine 0.57 L Glucose Level 132 Calcium Level 8.3 L Vancomycin Level Trough 12.8 Medications Medications Current Medications Ondansetron HCl (Zofran Inj) 4 mg Q6H PRN IV NAUSEA AND/OR VOMITING; Start at 19:30 Acetaminophen (Tylenol Tab) 650 mg Q6H PRN PO PAIN LEVEL 1-3 OR FEVER; Start at 19:30 Docusate Sodium (Colace) 100 mg Q12H PRN PO CONSTIPATION; Start 03/30/17 at 19: 30 Magnesium Hydroxide (Milk Of Mag) 30 ml DAILY PRN PO CONSTIPATION; Start at 19:30 Sodium Biphosphate/ Sodium Phosphate (Fleet Enema) 133 ml DAILY PRN [place] CONSTIPATION; Start 03/30/17 at 19:30 Pantoprazole (Protonix Iv) 40 mg DAILY@06 IV Last administered on 04/06/17 05: 45; Admin Dose 40 MG; Start 03/31/17 at 06:00 Lorazepam 0.5 mg 0.5 mg Q6H PRN IV ANXIETY; Start 03/30/17 at 19:30 Piperacillin Sod/ Tazobactam Sod (Zosyn 3.375gm/ 100 ml (Pmx)) 100 ml @ 200 mls /hr Q6 IVPB Last administered on 04/06/17 12:34; Admin Dose 200 MLS/HR; Start 03/31/17 at 00:00 Vancomycin HCl (Vanco Iv Per Pharmacy) VANCOMYCIN PER PHARMACY NOTE XX ; Start 03/30/17 at 19:30 Hydralazine HCl (Apresoline) 10 mg Q6H PRN IV ELEVATED BLOOD PRESSURE; Start at 19:30 Nitroglycerin (Nitroglycerin (Sl Tab) 0.4 Mg) 1 tab Q5M PRN SL ANGINA; Start at 19:30 Escitalopram Oxalate (Lexapro) 10 mg DAILY PO Last administered on 04/06/17 09 :25; Admin Dose 10 MG; Start 03/31/17 at 09:00 Hydromorphone HCl MG/HR CONTINUOUS R... Q4PCA IV Last administered on 15:09; Admin Dose 6 MG; Start 03/31/17 at 13:30 Vancomycin HCl/ Sodium Chloride (Vancocin/NS) 150 ml @ 75 mls/hr Q12H IVPB Last administered on 04/06/17 15:28; Admin Dose 75 MLS/HR; Start 04/04/17 at 15 :00 Methylprednisolone Sodium Succinate 60 mg 60 mg Q12 IV ; Start 04/06/17 at 21:00 Albumin Human (Albumin Human 25%) 100 ml @ 100 mls/hr Q8H IV Last administered on 04/06/17 18:06; Admin Dose 100 MLS/HR; Start 04/06/17 at 16:00 ; Stop 04/08/17 at 08:59 Furosemide (Lasix) 10 mg Q8H IV ; Start 04/06/17 at 17:00; Stop 04/08/17 at 09: 01 KIN ESTEBAN MD April 06, 2017 20:50
[2017-04-06] MEDS: FUROSEMIDE 20 MG INJ IV SCH (20:55)
[2017-04-07] VITALS (12 sets, daily range): BP systolic 95–111; BP diastolic 53–64; PULSE 45–61; RESP 17–18
[2017-04-07] MEDS: PIPER-TAZO 3.375 GM IV (PMX) 100 ML IVPB SCH ×4 (01:02→20:49)
[2017-04-07] MEDS: FUROSEMIDE 20 MG INJ IV SCH ×3 (01:03→20:55)
[2017-04-07] MEDS: VANCOMYCIN 750 MG in SOD CHLORIDE 0.9% 150 ML IVPB SCH ×2 (02:00→15:35)
[2017-04-07] MEDS: PANTOPRAZOLE 40 MG INJ IV SCH (06:38)
--- NOTE | 2017-04-07 08:50 | PN ---
DATE: 04/07/2017 CARDIOLOGY FOLLOWUP SUBJECTIVE: Discussed with the staff. Rhythm strip was reviewed. The patient had episodes of asym ptomatic sinus tachycardia again. He has been mostly bradycardic though. Denies any chest pain or pressure to me. Denies any palpitations to me. MEDICATIONS: Reviewed. OBJECTIVE: VITAL SIGNS: Temperature 97.9, heart rate of 56, blood pressure 106/53, respiratory rate of 18, sat urating 98%. HEENT: Normocephalic, atraumatic. Pupils are equal. CARDIOVASCULAR: Bradycardia. No murmur appreciated. No gallop. PULMONARY: With no wheezes or rhonchi. GASTROINTESTINAL: Status post previous dysphagia. ____ place. EXTREMITIES: No edema of lower extremity. NEUROLOGIC: Awake and alert, not in distress. PSYCHIATRIC: Calm, pleasant. ASSESSMENT AND PLAN: 1. Symptomatic sick sinus syndrome. 2. History of multiple cancers including cholangiocarcinoma, ____, lymphoma. 3. Jaundice. 4. Malnutrition. 5. Abnormal liver function tests. 6. Electrolyte abnormalities. RECOMMENDATIONS: Correct electrolytes as needed. Again, as long as the patient is not having any s ymptoms with his bradycardia, no pacemaker is indicated. Continue to follow up with GI and surgery recommendations. Dictated By: POOJA BISHOP/JASMYNE Conf#: [id number] DID#: [id number]
[2017-04-07] MEDS: ALBUMIN HUMAN 25% 100 ML IV SCH ×2 (09:54→17:17)
[2017-04-07] MEDS: ESCITALOPRAM 10 MG TAB PO SCH (09:55)
[2017-04-07] MEDS: METHYLPREDNISOLONE 125 MG INJ IV SCH ×2 (09:55→21:06)
--- NOTE | 2017-04-07 11:43 | PN ---
Date/Time of Note Date/Time of Note DATE: 04/07/17 TIME: 11:41 Assessment/Plan VTE Prophylaxis VTE Prophylaxis Intervention: SCD's Lines/Catheters IV C[facility]ter Type (from [facility] Peripheral IV Urinary Cath still in place: No Assessment/Plan Assessment/Plan Assessment * Obstructive jaundice S/P PTBD right biliary system 04/04/2017 S/P bile duct excision with cholecystectomy excision of extrahepatic duct,and Isabell en Y hepaticojejuniostomy sec to cholangiocarcinoma MRI 03/31/2017 There is a lobular area of elevated T2 signal is seen in the central liver worrisome for a mass possibly cholangiocarcinoma and this causes prominent intrahepatic biliary ductal dilatation of both the left and right intrahepatic biliary ducts with central loss of signal at the area of the mass. Prominent hepatomegaly is seen with findings suggestive for portal hypertension. Mild ascites is seen. Surgical changes are seen of the bowel with no evidence of an obstruction. There is a fecal filled colon * Hematochezia/Anemia * History of proctocolectomy with J pouch 2005 * History of sigmoidoscopy 01/2017 moderate pouchitis,no evidence of malignancy * Intractable pain Plan * Continue present management * pain control * monitor hemoglobin and hematocrit Q6 ,transfuse 1 unit of PRBC if Hgb<7.5, 2units of PRBC if Hgb <7 Subjective 24 Hr Interval Summary Free Text/Dictation * Course reviewed with RN * No abdominal pain,no hematochezia * Latest hemoglobin 8.2 Exam/Review of Systems Vital Signs Vitals Vital Signs Date Time Temp Pulse Resp B/P Pulse Ox O2 Delivery O2 Flow Rate FiO2 04/07/17 08:15 45 04/07/17 08:07 97.7 18 95/62 97 04/04/17 12:02 Room Air Intake and Output 04/06/17 04/06/17 04/07/17 15:00 23:00 07:00 Intake Total 260 ml 200 ml Output Total 330 ml 1200 ml Balance -70 ml -1000 ml Exam Constitutional: alert, frail Neck: non-tender, supple Respiratory: clear to auscultation, diminished breath sounds Cardiovascular: nl pulses, regular rate and rhythm Gastrointestinal: bowel sounds, No rebound or guarding Musculoskeletal: nl extremities to inspection Results Result Diagram: 04/06/17 1027 04/06/17 1027 Results 24 hrs Laboratory Tests Test 04/06/17 14:00 04/06/17 14:55 Stool Occult Blood POSITIVE Vancomycin Level Trough 12.8 Medications Medications Current Medications Ondansetron HCl (Zofran Inj) 4 mg Q6H PRN IV NAUSEA AND/OR VOMITING; Start at 19:30 Acetaminophen (Tylenol Tab) 650 mg Q6H PRN PO PAIN LEVEL 1-3 OR FEVER; Start at 19:30 Docusate Sodium (Colace) 100 mg Q12H PRN PO CONSTIPATION; Start 03/30/17 at 19: 30 Magnesium Hydroxide (Milk Of Mag) 30 ml DAILY PRN PO CONSTIPATION; Start at 19:30 Sodium Biphosphate/ Sodium Phosphate (Fleet Enema) 133 ml DAILY PRN [place] CONSTIPATION; Start 03/30/17 at 19:30 Pantoprazole (Protonix Iv) 40 mg DAILY@06 IV Last administered on 04/07/17 06: 38; Admin Dose 40 MG; Start 03/31/17 at 06:00 Lorazepam 0.5 mg 0.5 mg Q6H PRN IV ANXIETY; Start 03/30/17 at 19:30 Piperacillin Sod/ Tazobactam Sod (Zosyn 3.375gm/ 100 ml (Pmx)) 100 ml @ 200 mls /hr Q6 IVPB Last administered on 04/07/17 06:38; Admin Dose 200 MLS/HR; Start 03/31/17 at 00:00 Vancomycin HCl (Vanco Iv Per Pharmacy) VANCOMYCIN PER PHARMACY NOTE XX ; Start 03/30/17 at 19:30 Hydralazine HCl (Apresoline) 10 mg Q6H PRN IV ELEVATED BLOOD PRESSURE; Start at 19:30 Nitroglycerin (Nitroglycerin (Sl Tab) 0.4 Mg) 1 tab Q5M PRN SL ANGINA; Start at 19:30 Escitalopram Oxalate (Lexapro) 10 mg DAILY PO Last administered on 04/07/17 09 :55; Admin Dose 10 MG; Start 03/31/17 at 09:00 Hydromorphone HCl MG/HR CONTINUOUS R... Q4PCA IV Last administered on 15:09; Admin Dose 6 MG; Start 03/31/17 at 13:30 Vancomycin HCl/ Sodium Chloride (Vancocin/NS) 150 ml @ 75 mls/hr Q12H IVPB Last administered on 04/07/17 02:00; Admin Dose 75 MLS/HR; Start 04/04/17 at 15 :00 Methylprednisolone Sodium Succinate 60 mg 60 mg Q12 IV Last administered on 09:55; Admin Dose 60 MG; Start 04/06/17 at 21:00 Albumin Human (Albumin Human 25%) 100 ml @ 100 mls/hr Q8H IV Last administered on 04/07/17 09:54; Admin Dose 100 MLS/HR; Start 04/06/17 at 16:00 ; Stop 04/08/17 at 08:59 Furosemide (Lasix) 10 mg Q8H IV Last administered on 04/07/17 01:03; Admin Dose 10 MG; Start 04/06/17 at 17:00; Stop 04/08/17 at 09:01 BRAD PRADO MD April 07, 2017 11:43
[2017-04-07 12:12] LABS: ALBUMIN 2.6 g/dl (3.3-4.9); ALBUMIN/GLOBULIN RATIO 0.7; BILIRUBIN,INDIRECT 1.2 mg/dl (0-1.1); BILIRUBIN,TOTAL 4.2 mg/dl (0.2-1.3); CALCIUM 8.6 mg/dl (8.4-10.2); CREATININE 0.63 mg/dl (0.61-1.24); TOTAL PROTEIN 6.3 g/dl (6.1-8.1)
[2017-04-07 12:14] LABS: POTASSIUM 2.8 mmol/L (3.5-5.1)
--- NOTE | 2017-04-07 12:42 | PN ---
Date/Time of Note Date/Time of Note DATE: 04/07/17 TIME: 12:39 Assessment/Plan Lines/Catheters IV Catheter Type (from Nrs): Peripheral IV Andrews in Place (from Nrs): No Assessment/Plan Assessment/Plan [facility] Progress Note Date of Service: 04/07/17 Today's Impression & Plan: Overall stable. Frustrated and anxious. No indication for acute surgical or IR intervention today; hope to try and traverse across the R anastomosis tomorrow through IR. Discussed supportive care issues (maximize antidepressants, anxiolytics and other interventions geared toward improvement of quality of life , as well as clarification of the code status) with Dr. Hinds (much appreciate his care). With above assessment, I've recommended the following for today: 1. Continued aggressive medical management with broad spec antimicrobials for the next few days 2. Aggressive nutritional support with increased oral intake. 3. Check labs. 4. Will attempt to set up possible stenting across the anastomosis on Saturday with IR 5. Maximize antidepressants Thank you again for your great care of this very pleasant patient and wonderful family. If there are any questions, please feel free to call me at [phone]. TOTAL VISIT TIME: 20 minutes of which more than half was spent in [id number] discussion with the patient, possibly including family, as well as coordination of care between multiple physicians and providers. Disclaimer: Inadvertent spelling or grammatical errors are likely due to EHR/ dictation software use and do not reflect on the overall quality of patient care. Updated clinical summary: A very pleasant 61-year-old gentleman with significant past medical history including ulcerative colitis status post total proctocolectomy and ileoanal pouch as well as a number of other medical issues who was diagnosed with cholangiocarcinoma and underwent a radical bile duct resection that included extrahepatic bile duct and gallbladder at [facility], 2016, with final diagnosis of cholangiocarcinoma with 1/8 lymph node positive disease as well as low-grade dysplasia and carcinoma in situ at the proximal margin. The patient was readmitted to [facility] after a 2 month hospital stay at [facility] with increasing weakness, jaundice, and diffuse body pain. S/p perc drainage of right biliary system 04/03/17. COMORBIDITIES: 1. History of ulcerative colitis status post total proctocolectomy and ileoanal pouch. 2. Diagnosis of primary sclerosing cholangitis since 2008 being cared for at various institutions such as [facility] and by various physicians with involvement of Dr. Krystian Adkins for hepatology. 3. History of hospitalization at [facility] for bile duct obstruction from mid December to early March with bile duct excision with cholecystectomy with removal of extrahepatic bile duct and Isabell-en-Y hepaticojejunostomy on 07/2017 with the above-mentioned pathology. 4. Chronic back pain, mainly lower, for the last 5 to 6 years. 5. Significant weight loss of more than 20 to 30 pounds over the last 6 months. 6. No history of lymphoma (note that this was reported erroneously in the patient's chart. The patient does not report any history of lymphoma in the past and that is also corroborated by the patient's family). 7. Status post multiple ERCPs and stenting in the past since 2005. 8. Elevated alpha fetoprotein 1.8 in 12/2016. 9. Elevated CA19-9 of 272.9 in 12/2016. 10. Normal CEA at 1.6 on 01/14/2017. 11. Status post sigmoidoscopy, 01/16/2017, showing moderate pouchitis and negative for dysplasia or malignancy. 12. S/p perc drainage of right biliary system 04/03/17. Subjective: No major events or complaints; no major abd pain and under control with medications; no n/v/d; no sob or cp; + flatus; + BM and normal; minimal activity ; feels depressed, fatigued and weak. Reports some improvement with the diaper. Objective: Vitals: See below Exam: GENERAL: On exam, the patient was laying in bed and appeared to be comfortable and in no acute distress. ABDOMEN: Soft, nontender and nondistended. Incisions are clean, dry and intact without any evidence of erythema, edema, discharge, or hernia. R biliary drain with purulent fluid in the bag. There are no peritoneal signs or guarding. SKIN: Skin appears to be jaundiced and feels warm to touch. NEUROLOGIC: Patient was sleeping, but easily awake and remained alert, and followed commands appropriately. Exam/Review of Systems Vital Signs Vitals Vital Signs Date Time Temp Pulse Resp B/P Pulse Ox O2 Delivery O2 Flow Rate FiO2 04/07/17 12:10 97.4 52 18 104/64 97 04/04/17 12:02 Room Air Intake and Output 04/06/17 04/06/17 04/07/17 15:00 23:00 07:00 Intake Total 260 ml 200 ml Output Total 330 ml 1200 ml Balance -70 ml -1000 ml Results Result Diagram: 04/06/17 1027 04/07/17 1053 ZOE GOYAL M.D. April 07, 2017 12:42
[2017-04-07 13:59] LABS: ADD SCAN DIFF NO
[2017-04-07 14:10] LABS: ABNORMAL IP MESSAGE 1; HEMATOCRIT 24.2 % (42.0-52.0); HEMOGLOBIN 8.2 g/dl (14.0-18.0); MEAN CORPUSCULAR HEMOGLOBIN 31.4 pg (29.0-33.0); MEAN CORPUSCULAR HGB CONC 33.9 g/dl (32.0-37.0); MEAN CORPUSCULAR VOLUME 92.7 fl (82.0-101.0); MEAN PLATELET VOLUME 9.4 fl (7.4-10.4); PLATELET COUNT 483 10^3/UL (140-415); RED BLOOD COUNT 2.61 10^6/ul (4.70-6.10); RED CELL DISTRIBUTION WIDTH 19.8 % (11.5-14.5); WHITE BLOOD COUNT 27.6 10^3/ul (4.8-10.8)
[2017-04-07 14:19] LABS: CALCIUM 8.7 mg/dl (8.4-10.2); CREATININE 0.59 mg/dl (0.61-1.24); POTASSIUM 3.2 mmol/L (3.5-5.1)
--- NOTE | 2017-04-07 14:35 | PN ---
Date/Time of Note Date/Time of Note DATE: 04/07/17 TIME: 14:32 Assessment/Plan VTE Prophylaxis VTE Prophylaxis Intervention: SCD's Lines/Catheters IV Catheter Type (from [facility]): Peripheral IV Urinary Cath still in place: No Assessment/Plan Assessment/Plan 1. Obstructive jaundice 2/2 Biliary tumour causing Obstruction, S/p hepatobiliary consult- today S/p IR Guided external drainage - possible plan for another intervention by IR tomorrow as per 2. 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 currenlty with recurrent of tumour 3. Chronic Crohn's diseasestatus post total proctocolectomy with J-pouch creation 2005. 4. Chronic primary sclerosing cholangitis w cholangiocarcinoma. Needs advanced care planning evaluated. Poor prognosis. Performance status questionable at this time for chemotherapy & bilirubin needs some improvement. 5. Severe symptomatic bradycardia with HR down to 40s- now improving HR 7. s/p bd excision w cholecystectomy, excision of extrahepatic cbd and Isabell-en -Y hepaticojejunostomy. 8. Failure to thrive 9. Anemia 10. Reactive thrombocytosis 11. Dyslipidemia. S/p hepatobiliary consult- s/p IR Guided external drainage -Hb stable, will transfuse prn - tomorrow possible plan for another intervention by IR tomorrow as per K 2.9- KCL 20mEQ IV x 1 dose now BP stable afebrile Subjective 24 Hr Interval Summary Free Text/Dictation K low pt is getting IV lasix + albumin for diuresis Exam/Review of Systems Vital Signs Vitals Vital Signs Date Time Temp Pulse Resp B/P Pulse Ox O2 Delivery O2 Flow Rate FiO2 04/07/17 12:14 52 04/07/17 12:10 97.4 18 104/64 97 04/04/17 12:02 Room Air Intake and Output 04/06/17 04/06/17 04/07/17 15:00 23:00 07:00 Intake Total 260 ml 200 ml Output Total 330 ml 1200 ml Balance -70 ml -1000 ml Exam HEENT: Normocephalic, atraumatic. Thin gentleman in no acute distress. CARDIOVASCULAR: Bradycardic, systolic murmur. PULMONARY: With no wheezes or rhonchi. GASTROINTESTINAL: Status post previous surgeries. Mild tenderness to palpation. EXTREMITIES: With trivial edema. NEUROLOGIC: Awake and alert. PSYCHIATRIC: Appears to be anxious, but otherwise stable. Results Result Diagram: 04/07/17 1350 04/07/17 1350 Results 24 hrs Laboratory Tests Test 04/06/17 14:55 04/07/17 10:53 04/07/17 13:50 Vancomycin Level Trough 12.8 Sodium Level 137 137 Potassium Level 2.8 *L 3.2 L Chloride Level 100 100 Carbon Dioxide Level 30 31 Anion Gap 10 9 Blood Urea Nitrogen 13 12 Creatinine 0.63 0.59 L Glucose Level 96 108 Calcium Level 8.6 8.7 Total Bilirubin 4.2 H Direct Bilirubin 3.00 H Indirect Bilirubin 1.2 H Aspartate Amino Transf (AST/SGOT) 80 H Alanine Aminotransferase (ALT/SGPT) 113 H Alkaline Phosphatase 484 H Total Protein 6.3 Albumin 2.6 L Globulin 3.70 H Albumin/Globulin Ratio 0.70 White Blood Count 27.6 #H Red Blood Count 2.61 L Hemoglobin 8.2 L Hematocrit 24.2 L Mean Corpuscular Volume 92.7 Mean Corpuscular Hemoglobin 31.4 Mean Corpuscular Hemoglobin Concent 33.9 Red Cell Distribution Width 19.8 H Platelet Count 483 H Mean Platelet Volume 9.4 Medications Medications Current Medications Ondansetron HCl (Zofran Inj) 4 mg Q6H PRN IV NAUSEA AND/OR VOMITING; Start at 19:30 Acetaminophen (Tylenol Tab) 650 mg Q6H PRN PO PAIN LEVEL 1-3 OR FEVER; Start at 19:30 Docusate Sodium (Colace) 100 mg Q12H PRN PO CONSTIPATION; Start 03/30/17 at 19: 30 Magnesium Hydroxide (Milk Of Mag) 30 ml DAILY PRN PO CONSTIPATION; Start at 19:30 Sodium Biphosphate/ Sodium Phosphate (Fleet Enema) 133 ml DAILY PRN [place] CONSTIPATION; Start 03/30/17 at 19:30 Pantoprazole (Protonix Iv) 40 mg DAILY@06 IV Last administered on 04/07/17t 06: 38; Admin Dose 40 MG; Start 03/31/17 at 06:00 Lorazepam 0.5 mg 0.5 mg Q6H PRN IV ANXIETY; Start 03/30/17 at 19:30 Piperacillin Sod/ Tazobactam Sod (Zosyn 3.375gm/ 100 ml (Pmx)) 100 ml @ 200 mls /hr Q6 IVPB Last administered on 04/07/17 14:06; Admin Dose 200 MLS/HR; Start 03/31/17 at 00:00 Vancomycin HCl (Vanco Iv Per Pharmacy) VANCOMYCIN PER PHARMACY NOTE XX ; Start 03/30/17 at 19:30 Hydralazine HCl (Apresoline) 10 mg Q6H PRN IV ELEVATED BLOOD PRESSURE; Start at 19:30 Nitroglycerin (Nitroglycerin (Sl Tab) 0.4 Mg) 1 tab Q5M PRN SL ANGINA; Start at 19:30 Escitalopram Oxalate (Lexapro) 10 mg DAILY PO Last administered on 04/07/17 09 :55; Admin Dose 10 MG; Start 03/31/17 at 09:00 Hydromorphone HCl MG/HR CONTINUOUS R... Q4PCA IV Last administered on 15:09; Admin Dose 6 MG; Start 03/31/17 at 13:30 Vancomycin HCl/ Sodium Chloride (Vancocin/NS) 150 ml @ 75 mls/hr Q12H IVPB Last administered on 04/07/17 02:00; Admin Dose 75 MLS/HR; Start 04/04/17 at 15 :00 Methylprednisolone Sodium Succinate 60 mg 60 mg Q12 IV Last administered on 09:55; Admin Dose 60 MG; Start 04/06/17 at 21:00 Albumin Human (Albumin Human 25%) 100 ml @ 100 mls/hr Q8H IV Last administered on 04/07/17 09:54; Admin Dose 100 MLS/HR; Start 04/06/17 at 16:00 ; Stop 04/08/17 at 08:59 Furosemide (Lasix) 10 mg Q8H IV Last administered on 04/07/17 14:07; Admin Dose 10 MG; Start 04/06/17 at 17:00; Stop 04/08/17 at 09:01 DWIGHT NEAL MD April 07, 2017 14:35
[2017-04-07] MEDS ORDERED: POTASSIUM CHLORIDE 20 MEQ in SOD CHLORIDE 0.9% 100 ML IVPB ONE (15:30)
[2017-04-07 15:42] LABS: ANISOCYTOSIS 1+; HYPOCHROMASIA 1+; LYMPHOCYTES # 0.6 10^3/ul (0.8-2.9)
[2017-04-07] MEDS: POTASSIUM CHLORIDE (SR) 10 MEQ TAB PO SCH (21:06)
--- NOTE | 2017-04-07 22:43 | CONS ---
Date/Time of Note Date/Time of Note DATE: 04/07/17 TIME: 22:42 Assessment/Plan Assessment/Plan Chief Complaint/Hosp Course A/P 1. 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 postop , NOW WITH Metastatic dis in the liver lobular area of elevated T2 signal is seen in the central liver worrisome for a mass possibly cholangiocarcinoma and this causes prominent intrahepatic biliary ductal dilatation of both the left and right intrahepatic biliary ducts with central loss of signal at the area of the mass. CT and MRI- REVIEWED TUMOR MARKERS : ca 19-9 1420 , ? 2 to tumor progression hepatobiliary consult noted- D/W Kt TRAORE POST drain placement in the right lobe of the liver- c/w abscess for possible stenting across the anastomosis on Saturday with IR WILL CHECK LFT TOMORROW 2. Obstructive jaundice. Stable, ro stricture/recurrent tumor. MRCP/GI eval, hepatobiliary surgery consult- REVIEWED surgical f-up Dr Anderson noted POST biliary drainage by interventional radiology 3. Chronic Crohn's disease status post total proctocolectomy with J-pouch creation 2005. 4. Chronic primary sclerosing cholangitis w cholangiocarcinoma. Needs advanced care planning evaluated. Poor prognosis. Performance status questionable at this time for chemotherapy & bilirubin needs some improvement. 5. Malnutrition; oral feeds/Megace vs TPN 6. Active pouchitis? 7. Postop day 16 bd excision w cholecystectomy, excision of extrahepatic cbd and Isabell-en-Y hepaticojejunostomy. 8. Failure to thrive, may need snf 9. Anemia 10. Reactive thrombocytosis 11. Dyslipidemia. Problems: Consultation Date/Type/Reason Admit Date/Time March 30, 2017 at 18:53 Initial Consult Date 03/31/17 Type of Consultation: [facility] Referring Provider: HUMZA JAIME MD 24 HR Interval Summary Free Text/Dictation pt is stable. Frustrated and anxious. long d/w pt re situation Exam/Review of Systems Vital Signs Vitals Vital Signs Date Time Temp Pulse Resp B/P Pulse Ox O2 Delivery O2 Flow Rate FiO2 04/07/17 20:20 60 04/07/17 20:09 98.0 18 99/55 95 04/04/17 12:02 Room Air Intake and Output 04/06/17 04/06/17 04/07/17 15:00 23:00 07:00 Intake Total 260 ml 200 ml Output Total 330 ml 1200 ml Balance -70 ml -1000 ml Exam Constitutional: alert, oriented, very thin, slightly tired, jaundice Psych: nl mood/affect Head: normocephalic Eyes: EOMI, sclera anicteric, nl lids ENMT: nl external ears & nose, nl lips & teeth, nl nasal mucosa & septum Respiratory: clear to auscultation, normal air movement Cardiovascular: regular rate and rhythm Gastrointestinal: soft, diffuse abdominal tenderness Musculoskeletal: nl extremities to inspection Neurological: [employer] II-XII intact Results Result Diagram: 04/07/17 1350 04/07/17 1350 Results 24 hrs Laboratory Tests Test 04/07/17 10:53 04/07/17 13:50 Sodium Level 137 137 Potassium Level 2.8 *L 3.2 L Chloride Level 100 100 Carbon Dioxide Level 30 31 Anion Gap 10 9 Blood Urea Nitrogen 13 12 Creatinine 0.63 0.59 L Glucose Level 96 108 Calcium Level 8.6 8.7 Total Bilirubin 4.2 H Direct Bilirubin 3.00 H Indirect Bilirubin 1.2 H Aspartate Amino Transf (AST/SGOT) 80 H Alanine Aminotransferase (ALT/SGPT) 113 H Alkaline Phosphatase 484 H Total Protein 6.3 Albumin 2.6 L Globulin 3.70 H Albumin/Globulin Ratio 0.70 White Blood Count 27.6 #H Red Blood Count 2.61 L Hemoglobin 8.2 L Hematocrit 24.2 L Mean Corpuscular Volume 92.7 Mean Corpuscular Hemoglobin 31.4 Mean Corpuscular Hemoglobin Concent 33.9 Red Cell Distribution Width 19.8 H Platelet Count 483 H Mean Platelet Volume 9.4 Neutrophils % 98.0 H Lymphocytes % 2.0 L Neutrophils # 27.0 H Lymphocytes # 0.6 L Hypochromasia 1+ Anisocytosis 1+ Medications Medications Current Medications Ondansetron HCl (Zofran Inj) 4 mg Q6H PRN IV NAUSEA AND/OR VOMITING; Start at 19:30 Acetaminophen (Tylenol Tab) 650 mg Q6H PRN PO PAIN LEVEL 1-3 OR FEVER; Start at 19:30 Docusate Sodium (Colace) 100 mg Q12H PRN PO CONSTIPATION; Start 03/30/17 at 19: 30 Magnesium Hydroxide (Milk Of Mag) 30 ml DAILY PRN PO CONSTIPATION; Start at 19:30 Sodium Biphosphate/ Sodium Phosphate (Fleet Enema) 133 ml DAILY PRN [place] CONSTIPATION; Start 03/30/17 at 19:30 Pantoprazole (Protonix Iv) 40 mg DAILY@06 IV Last administered on 04/07/17 06: 38; Admin Dose 40 MG; Start 03/31/17 at 06:00 Lorazepam 0.5 mg 0.5 mg Q6H PRN IV ANXIETY; Start 03/30/17 at 19:30 Piperacillin Sod/ Tazobactam Sod (Zosyn 3.375gm/ 100 ml (Pmx)) 100 ml @ 200 mls /hr Q6 IVPB Last administered on 04/07/17 20:49; Admin Dose 200 MLS/HR; Start 03/31/17 at 00:00 Vancomycin HCl (Vanco Iv Per Pharmacy) VANCOMYCIN PER PHARMACY NOTE XX ; Start 03/30/17 at 19:30 Hydralazine HCl (Apresoline) 10 mg Q6H PRN IV ELEVATED BLOOD PRESSURE; Start at 19:30 Nitroglycerin (Nitroglycerin (Sl Tab) 0.4 Mg) 1 tab Q5M PRN SL ANGINA; Start at 19:30 Escitalopram Oxalate (Lexapro) 10 mg DAILY PO Last administered on 04/07/17 09 :55; Admin Dose 10 MG; Start 03/31/17 at 09:00 Hydromorphone HCl MG/HR CONTINUOUS R... Q4PCA IV Last administered on 15:09; Admin Dose 6 MG; Start 03/31/17 at 13:30 Vancomycin HCl/ Sodium Chloride (Vancocin/NS) 150 ml @ 75 mls/hr Q12H IVPB Last administered on 04/07/17 15:35; Admin Dose 75 MLS/HR; Start 04/04/17 at 15 :00 Methylprednisolone Sodium Succinate 60 mg 60 mg Q12 IV Last administered on 21:06; Admin Dose 60 MG; Start 04/06/17 at 21:00 Albumin Human (Albumin Human 25%) 100 ml @ 100 mls/hr Q8H IV Last administered on 04/07/17 17:17; Admin Dose 100 MLS/HR; Start 04/06/17 at 16:00 ; Stop 04/08/17 at 08:59 Furosemide (Lasix) 10 mg Q8H IV Last administered on 04/07/17 20:55; Admin Dose 10 MG; Start 04/06/17 at 17:00; Stop 04/08/17 at 09:01 Potassium Chloride (Klor-Con 10) 10 meq BID PO Last administered on 04/07/17 21:06; Admin Dose 10 MEQ; Start 04/07/17 at 21:00 KIN ESTEBAN MD April 07, 2017 22:43
[2017-04-08] VITALS (15 sets, daily range): BP systolic 101–144; BP diastolic 53–78; PULSE 30–51; RESP 15–18
[2017-04-08] MEDS: ALBUMIN HUMAN 25% 100 ML IV SCH ×3 (00:04→11:09)
[2017-04-08] MEDS: PIPER-TAZO 3.375 GM IV (PMX) 100 ML IVPB SCH ×4 (01:22→18:39)
[2017-04-08] MEDS: FUROSEMIDE 20 MG INJ IV SCH ×3 (01:22→14:13)
[2017-04-08] MEDS: VANCOMYCIN 750 MG in SOD CHLORIDE 0.9% 150 ML IVPB SCH ×2 (04:05→15:37)
[2017-04-08] MEDS: PANTOPRAZOLE 40 MG INJ IV SCH (06:28)
[2017-04-08 07:21] LABS: ADD SCAN DIFF NO
[2017-04-08 07:25] LABS: ABNORMAL IP MESSAGE 1; HEMATOCRIT 21.9 % (42.0-52.0); HEMOGLOBIN 7.2 g/dl (14.0-18.0); LYMPHOCYTES # 0.5 10^3/ul (0.8-2.9); LYMPHOCYTES % 3.6 % (15.0-51.0); MEAN CORPUSCULAR HEMOGLOBIN 30.4 pg (29.0-33.0); MEAN CORPUSCULAR HGB CONC 32.9 g/dl (32.0-37.0); MEAN CORPUSCULAR VOLUME 92.4 fl (82.0-101.0); MONOCYTE # 0.3 10^3/ul (0.3-0.9); MONOCYTES % 2.4 % (0.0-11.0); NEUTROPHIL # 12.3 10^3/ul (1.6-7.5); NEUTROPHILS % 93.2 % (39.0-77.0); PLATELET COUNT 373 10^3/UL (140-415); RED BLOOD COUNT 2.37 10^6/ul (4.70-6.10); RED CELL DISTRIBUTION WIDTH 20.2 % (11.5-14.5); WHITE BLOOD COUNT 13.2 10^3/ul (4.8-10.8)
[2017-04-08 07:45] LABS: CREATININE 0.63 mg/dl (0.61-1.24); POTASSIUM 3.3 mmol/L (3.5-5.1)
[2017-04-08] MEDS: ESCITALOPRAM 10 MG TAB PO SCH (08:59)
[2017-04-08] MEDS: METHYLPREDNISOLONE 125 MG INJ IV SCH ×2 (08:59→22:11)
[2017-04-08] MEDS: POTASSIUM CHLORIDE (SR) 10 MEQ TAB PO SCH ×2 (08:59→22:11)
--- NOTE | 2017-04-08 13:47 | PN ---
Date/Time of Note Date/Time of Note DATE: 04/08/17 TIME: 13:40 Assessment/Plan Lines/Catheters IV Catheter Type (from [facility]): Peripheral IV Andrews in Place (from [facility]): No Assessment/Plan Assessment/Plan [facility] Progress Note Date of Service: 04/08/17 Today's Impression & Plan: Overall stable and overall improved with sig improvement in alk phos and improvement in T. bili, although it increased on today's labs. Suspect more improvement if we're able to drain the left side better. Scheduled for more IR intervention on the R tomorrow. Explained clinical picture to patient and family (his sister and his ex-) with more than 30 min discussion at bedside. Answered all questions. With above assessment, I've recommended the following for today: 1. Continued aggressive medical management with broad spec antimicrobials for the next few days 2. Aggressive nutritional support with increased oral intake. 3. Labs in am 4. Possible stenting across the anastomosis attempt with IR tomorrow 5. Maximize antidepressants 6. Continued supportive care management Thank you again for your great care of this very pleasant patient and wonderful family. If there are any questions, please feel free to call me at [phone]. TOTAL VISIT TIME: 20 minutes of which more than half was spent in [id number] discussion with the patient, possibly including family, as well as coordination of care between multiple physicians and providers. Disclaimer: Inadvertent spelling or grammatical errors are likely due to EHR/ dictation software use and do not reflect on the overall quality of patient care. Updated clinical summary: A very pleasant 61-year-old gentleman with significant past medical history including ulcerative colitis status post total proctocolectomy and ileoanal pouch as well as a number of other medical issues who was diagnosed with cholangiocarcinoma and underwent a radical bile duct resection that included extrahepatic bile duct and gallbladder at [facility], 2016, with final diagnosis of cholangiocarcinoma with 1/8 lymph node positive disease as well as low-grade dysplasia and carcinoma in situ at the proximal margin. The patient was readmitted to [facility] after a 2 month hospital stay at [facility] with increasing weakness, jaundice, and diffuse body pain. S/p perc drainage of right biliary system 04/03/17. COMORBIDITIES: 1. History of ulcerative colitis status post total proctocolectomy and ileoanal pouch. 2. Diagnosis of primary sclerosing cholangitis since 2008 being cared for at various institutions such as [facility] and by various physicians with involvement of Dr. Krystian Adkins for hepatology. 3. History of hospitalization at [facility] for bile duct obstruction from mid December to early March with bile duct excision with cholecystectomy with removal of extrahepatic bile duct and Isabell-en-Y hepaticojejunostomy on 07/2017 with the above-mentioned pathology. 4. Chronic back pain, mainly lower, for the last 5 to 6 years. 5. Significant weight loss of more than 20 to 30 pounds over the last 6 months. 6. No history of lymphoma (note that this was reported erroneously in the patient's chart. The patient does not report any history of lymphoma in the past and that is also corroborated by the patient's family). 7. Status post multiple ERCPs and stenting in the past since 2005. 8. Elevated alpha fetoprotein 1.8 in 12/2016. 9. Elevated CA19-9 of 272.9 in 12/2016. 10. Normal CEA at 1.6 on 01/14/2017. 11. Status post sigmoidoscopy, 01/16/2017, showing moderate pouchitis and negative for dysplasia or malignancy. 12. S/p perc drainage of right biliary system 04/03/17. Subjective: No major events or complaints; no major abd pain and under control with medications; no n/v/d; no sob or cp; + flatus; + BM and normal; minimal activity ; feels depressed, fatigued and weak. Objective: Vitals: See below Exam: GENERAL: On exam, the patient was laying in bed and appeared to be comfortable and in no acute distress. ABDOMEN: Soft, nontender and nondistended. Incisions are clean, dry and intact without any evidence of erythema, edema, discharge, or hernia. R biliary drain with purulent fluid in the bag. There are no peritoneal signs or guarding. SKIN: Skin appears to be jaundiced and feels warm to touch. NEUROLOGIC: Patient was sleeping, but easily awake and remained alert, and followed commands appropriately. Exam/Review of Systems Vital Signs Vitals Vital Signs Date Time Temp Pulse Resp B/P Pulse Ox O2 Delivery O2 Flow Rate FiO2 04/08/17 11:29 98.0 42 18 108/62 97 04/04/17 12:02 Room Air Intake and Output 04/07/17 04/07/17 04/08/17 14:59 22:59 06:59 Intake Total 200 ml 550 ml 350 ml Output Total 1250 ml 40 ml Balance 200 ml -700 ml 310 ml Results Result Diagram: 04/08/17 0625 04/08/17 0625 ZOE GOYAL M.D. April 08, 2017 13:47
--- NOTE | 2017-04-08 15:44 | PN ---
Date/Time of Note Date/Time of Note DATE: 04/08/17 TIME: 15:40 Assessment/Plan VTE Prophylaxis VTE Prophylaxis Intervention: SCD's Lines/Catheters IV [facility]from [facility] Peripheral IV Urinary Cath still in place: No Assessment/Plan Chief Complaint/Hosp Course Assessment and plan 1. 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 Patient postop cholecystectomy and excision of extrahepatic CBD and Isabell-en-Y hepaticojejunostomy. Continue with analgesics. Surgeon following. Tentative plan for IR intervention on April 09, 2017. Will follow up. 2. History of chronic Crohn's disease status post proximal colectomy with J- pouch creation in 2005. Continue GI recommendations. 3. 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 Oncologist following. Further management for consideration of possible chemotherapy/radiation per oncologist. 4. bradycardia. Asymptomatic present. Continue telemetry monitoring. 5. History of depression. Patient to be continued on Lexapro medication 6. Noted failure to thrive. Encourage oral intake. 7. thromboycytopenia. Monitor for signs or symptoms of bleeding. Disposition and plan: Tentative plan for IR intervention on April 09, 2017. Continue with analgesics. Patient requested to be DNR. DNR status ordered Discussed plan of care with Dr. Sanz Problems: Subjective 24 Hr Interval Summary Free Text/Dictation No apparent signs or symptoms of distress seen at this time Exam/Review of Systems Vital Signs Vitals Vital Signs Date Time Temp Pulse Resp B/P Pulse Ox O2 Delivery O2 Flow Rate FiO2 04/08/17 15:12 98.0 53 18 101/62 98 04/04/17 12:02 Room Air Intake and Output 04/07/17 04/07/17 04/08/17 15:00 23:00 07:00 Intake Total 200 ml 550 ml 450 ml Output Total 1250 ml 40 ml Balance 200 ml -700 ml 410 ml Exam Constitutional: alert, oriented Head: normocephalic Respiratory: normal air movement Cardiovascular: regular rate and rhythm Gastrointestinal: non-tender, other (Noted with right flank drain), soft Extremities: No edema Neurological: nl mental status, nl speech Results Result Diagram: 04/08/17 0625 04/08/17 0625 Results 24 hrs Laboratory Tests Test 04/08/17 06:25 White Blood Count 13.2 #H Red Blood Count 2.37 L Hemoglobin 7.2 L Hematocrit 21.9 L Mean Corpuscular Volume 92.4 Mean Corpuscular Hemoglobin 30.4 Mean Corpuscular Hemoglobin Concent 32.9 Red Cell Distribution Width 20.2 H Platelet Count 373 # Mean Platelet Volume 10.0 Neutrophils % 93.2 H Lymphocytes % 3.6 L Monocytes % 2.4 Eosinophils % 0.0 Basophils % 0.0 Nucleated Red Blood Cells % 0.0 Neutrophils # 12.3 H Lymphocytes # 0.5 L Monocytes # 0.3 Eosinophils # 0.0 Basophils # 0.0 Nucleated Red Blood Cells # 0.0 Sodium Level 138 Potassium Level 3.3 L Chloride Level 100 Carbon Dioxide Level 32 H Anion Gap 9 Blood Urea Nitrogen 15 Creatinine 0.63 Glucose Level 156 Calcium Level 9.0 Medications Medications Current Medications Ondansetron HCl (Zofran Inj) 4 mg Q6H PRN IV NAUSEA AND/OR VOMITING; Start at 19:30 Acetaminophen (Tylenol Tab) 650 mg Q6H PRN PO PAIN LEVEL 1-3 OR FEVER; Start at 19:30 Docusate Sodium (Colace) 100 mg Q12H PRN PO CONSTIPATION; Start 03/30/17 at 19: 30 Magnesium Hydroxide (Milk Of Mag) 30 ml DAILY PRN PO CONSTIPATION; Start at 19:30 Sodium Biphosphate/ Sodium Phosphate (Fleet Enema) 133 ml DAILY PRN [place] CONSTIPATION; Start 03/30/17 at 19:30 Pantoprazole (Protonix Iv) 40 mg DAILY@06 IV Last administered on 04/08/17 06: 28; Admin Dose 40 MG; Start 03/31/17 at 06:00 Lorazepam 0.5 mg 0.5 mg Q6H PRN IV ANXIETY; Start 03/30/17 at 19:30 Piperacillin Sod/ Tazobactam Sod (Zosyn 3.375gm/ 100 ml (Pmx)) 100 ml @ 200 mls /hr Q6 IVPB Last administered on 04/08/17 12:21; Admin Dose 200 MLS/HR; Start 03/31/17 at 00:00 Vancomycin HCl (Vanco Iv Per Pharmacy) VANCOMYCIN PER PHARMACY NOTE XX ; Start 03/30/17 at 19:30 Hydralazine HCl (Apresoline) 10 mg Q6H PRN IV ELEVATED BLOOD PRESSURE; Start at 19:30 Nitroglycerin (Nitroglycerin (Sl Tab) 0.4 Mg) 1 tab Q5M PRN SL ANGINA; Start at 19:30 Escitalopram Oxalate (Lexapro) 10 mg DAILY PO Last administered on 04/08/17 08 :59; Admin Dose 10 MG; Start 03/31/17 at 09:00 Hydromorphone HCl MG/HR CONTINUOUS R... Q4PCA IV Last administered on 15:09; Admin Dose 6 MG; Start 03/31/17 at 13:30 Vancomycin HCl/ Sodium Chloride (Vancocin/NS) 150 ml @ 75 mls/hr Q12H IVPB Last administered on 04/08/17 15:37; Admin Dose 75 MLS/HR; Start 04/04/17 at 15 :00 Methylprednisolone Sodium Succinate (Solu-Medrol) 60 mg Q12 IV Last administered on 04/08/17 08:59; Admin Dose 60 MG; Start 04/06/17 at 21:00 Potassium Chloride (Klor-Con 10) 10 meq BID PO Last administered on 04/08/17 08:59; Admin Dose 10 MEQ; Start 04/07/17 at 21:00 CANDIS MARIE April 08, 2017 15:44
--- NOTE | 2017-04-08 16:06 | PN ---
Date/Time of Note Date/Time of Note DATE: 04/08/17 TIME: 16:04 Assessment/Plan VTE Prophylaxis VTE Prophylaxis Intervention: SCD's Lines/Catheters IV [facility]ter Type (from [facility]): Peripheral IV Urinary Cath still in place: No Assessment/Plan Assessment/Plan Assessment * Obstructive jaundice S/P PTBD right biliary system 04/04/2017 S/P bile duct excision with cholecystectomy excision of extrahepatic duct,and Isabell en Y hepaticojejuniostomy sec to cholangiocarcinoma MRI 03/31/2017 There is a lobular area of elevated T2 signal is seen in the central liver worrisome for a mass possibly cholangiocarcinoma and this causes prominent intrahepatic biliary ductal dilatation of both the left and right intrahepatic biliary ducts with central loss of signal at the area of the mass. Prominent hepatomegaly is seen with findings suggestive for portal hypertension. Mild ascites is seen. Surgical changes are seen of the bowel with no evidence of an obstruction. There is a fecal filled colon * Hematochezia/Anemia * History of proctocolectomy with J pouch 2005 * History of sigmoidoscopy 01/2017 moderate pouchitis,no evidence of malignancy * Intractable pain Plan * Continue present management * pain control * monitor hemoglobin and hematocrit Q6 ,transfuse 1 unit of PRBC if Hgb<7.5, 2units of PRBC if Hgb <7 * Tentative IR 04/09/2017 Subjective 24 Hr Interval Summary Free Text/Dictation * Course reviewed with RN * patient seen and examined * Tentative IR 04/09/2017 Exam/Review of Systems Vital Signs Vitals Vital Signs Date Time Temp Pulse Resp B/P Pulse Ox O2 Delivery O2 Flow Rate FiO2 04/08/17 15:12 98.0 53 18 101/62 98 04/04/17 12:02 Room Air Intake and Output 04/07/17 04/07/17 04/08/17 15:00 23:00 07:00 Intake Total 200 ml 550 ml 450 ml Output Total 1250 ml 40 ml Balance 200 ml -700 ml 410 ml Exam Constitutional: alert Neck: non-tender, supple Respiratory: clear to auscultation, normal air movement Cardiovascular: nl pulses, regular rate and rhythm Gastrointestinal: soft Musculoskeletal: nl extremities to inspection, nl gait and stance Extremities: normal pulses Results Result Diagram: 04/08/17 0625 04/08/17 0625 Results 24 hrs Laboratory Tests Test 04/08/17 06:25 White Blood Count 13.2 #H Red Blood Count 2.37 L Hemoglobin 7.2 L Hematocrit 21.9 L Mean Corpuscular Volume 92.4 Mean Corpuscular Hemoglobin 30.4 Mean Corpuscular Hemoglobin Concent 32.9 Red Cell Distribution Width 20.2 H Platelet Count 373 # Mean Platelet Volume 10.0 Neutrophils % 93.2 H Lymphocytes % 3.6 L Monocytes % 2.4 Eosinophils % 0.0 Basophils % 0.0 Nucleated Red Blood Cells % 0.0 Neutrophils # 12.3 H Lymphocytes # 0.5 L Monocytes # 0.3 Eosinophils # 0.0 Basophils # 0.0 Nucleated Red Blood Cells # 0.0 Sodium Level 138 Potassium Level 3.3 L Chloride Level 100 Carbon Dioxide Level 32 H Anion Gap 9 Blood Urea Nitrogen 15 Creatinine 0.63 Glucose Level 156 Calcium Level 9.0 Medications Medications Current Medications Ondansetron HCl (Zofran Inj) 4 mg Q6H PRN IV NAUSEA AND/OR VOMITING; Start at 19:30 Acetaminophen (Tylenol Tab) 650 mg Q6H PRN PO PAIN LEVEL 1-3 OR FEVER; Start at 19:30 Docusate Sodium (Colace) 100 mg Q12H PRN PO CONSTIPATION; Start 03/30/17 at 19: 30 Magnesium Hydroxide (Milk Of Mag) 30 ml DAILY PRN PO CONSTIPATION; Start at 19:30 Sodium Biphosphate/ Sodium Phosphate (Fleet Enema) 133 ml DAILY PRN [place] CONSTIPATION; Start 03/30/17 at 19:30 Pantoprazole (Protonix Iv) 40 mg DAILY@06 IV Last administered on 04/08/17 06: 28; Admin Dose 40 MG; Start 03/31/17 at 06:00 Lorazepam 0.5 mg 0.5 mg Q6H PRN IV ANXIETY; Start 03/30/17 at 19:30 Piperacillin Sod/ Tazobactam Sod (Zosyn 3.375gm/ 100 ml (Pmx)) 100 ml @ 200 mls /hr Q6 IVPB Last administered on 04/08/17 12:21; Admin Dose 200 MLS/HR; Start 03/31/17 at 00:00 Vancomycin HCl (Vanco Iv Per Pharmacy) VANCOMYCIN PER PHARMACY NOTE XX ; Start 03/30/17 at 19:30 Hydralazine HCl (Apresoline) 10 mg Q6H PRN IV ELEVATED BLOOD PRESSURE; Start at 19:30 Nitroglycerin (Nitroglycerin (Sl Tab) 0.4 Mg) 1 tab Q5M PRN SL ANGINA; Start at 19:30 Escitalopram Oxalate (Lexapro) 10 mg DAILY PO Last administered on 04/08/17 08 :59; Admin Dose 10 MG; Start 03/31/17 at 09:00 Hydromorphone HCl MG/HR CONTINUOUS R... Q4PCA IV Last administered on 15:09; Admin Dose 6 MG; Start 03/31/17 at 13:30 Vancomycin HCl/ Sodium Chloride (Vancocin/NS) 150 ml @ 75 mls/hr Q12H IVPB Last administered on 04/08/17 15:37; Admin Dose 75 MLS/HR; Start 04/04/17 at 15 :00 Methylprednisolone Sodium Succinate (Solu-Medrol) 60 mg Q12 IV Last administered on 04/08/17 08:59; Admin Dose 60 MG; Start 04/06/17 at 21:00 Potassium Chloride (Klor-Con 10) 10 meq BID PO Last administered on 04/08/17 08:59; Admin Dose 10 MEQ; Start 04/07/17 at 21:00 BRAD PRADO MD April 08, 2017 16:06
--- NOTE | 2017-04-08 16:54 | PN ---
DATE: 04/06/2017 This is a pain management palliative care progress note. Briefly on 04/07/2017, I had a long discussion with Mr. Son about his very few support systems. Misti mayes has friends. He is not . He has no children. Pain management: He states that his pain i s under control at this time. Sometimes he feels somewhat loopy with the current settings on the PC A. He is not pushing the button frequently. He is a very appropriate with his dosage adjustments a nd has not asked for excessive quantities of pain control meds. His pain is alleviated to minimum w hile on the POLE INSPECTOR. Physically his functioning is poor. His mood is depressed. His sleep patterns ordonez ve improved somewhat with pain management. Denies nausea, vomiting, itching sweating and excess rakesh wsiness. He does not appear to be intoxicated or over sedated. The patient's overall severity of p ain is controlled at this time and is mild. OBJECTIVE: VITAL SIGNS: Blood pressure 108/62, pulse of 42, respirations of 18, temperature 98.0 degrees, 97% saturation on room air. CHEST: Clear. COR: S1, S2, without S3, S4, murmur, gallop, rub. Normal rate, normal rhythm. ABDOMEN: Grossly benign. ASSESSMENT AND PLAN: Continue supportive care with this gentleman and encourage him to lean on his friends and other family members if possible to try and obtain more support as it is a very difficul t time for him. I will not adjust his POLE INSPECTOR except a somewhat lower dose at that 0.1 mg but leave the intervals the same. I do believe there is an indication for this gentleman to be on antidepressant medications, but I will follow him and speak to him about this in detail first. Dictated By: SAVANAH DUBOSE MD, LP/JASMYNE Conf#: [id number] DID#: [id number]
--- NOTE | 2017-04-08 20:55 | PN ---
DATE: 04/08/2017 CARDIOLOGY FOLLOWUP SUBJECTIVE: Discussed with the staff. Rhythm strip was reviewed. The patient remains in marked si nus bradycardia. No syncope, no presyncope. No palpitation. MEDICATIONS: Reviewed. PHYSICAL EXAMINATION: VITAL SIGNS: Temperature 98.7, heart rate of 50, blood pressure 101/60, respiration rate of 18, sat urating 98%. HEENT: Normocephalic, atraumatic. Thin gentleman. Pupils are equal. CARDIOVASCULAR: Bradycardia. PULMONARY: No wheezes. GASTROINTESTINAL: Soft, status post drainage in place. EXTREMITIES: With no significant edema. NEUROLOGIC: Awake and alert. PSYCHIATRIC: Depressed mood. LABORATORY: WBC of 13.2, hemoglobin 7.2, platelets of 373. Sodium 138, potassium 3.3, BUN of 15, c reatinine 0.62, glucose 156. ASSESSMENT AND PLAN: 1. Sick sinus syndrome, marked sinus bradycardia, currently no reported symptoms. 2. Metastatic cholangiocarcinoma. 3. History of Crohn disease. 4. History of primary sclerosing cholangitis and cholangiocarcinoma. 5. History of depression. 6. Failure to thrive. 7. Severe anemia. RECOMMENDATIONS: GI workup and treatment is still pending ____. The patient is currently DNR. He wants the telemetry to be discontinued. Given his multiple other comorbidities, at this point I do not have any objection to have telemetry removed. Dictated By: POOJA CHAVEZ MD AV/JASMYNE Conf#: [id number] DID#: [id number] CC: RENAE PRUITT MD;*EndCC*
--- NOTE | 2017-04-08 22:43 | CONS ---
Date/Time of Note Date/Time of Note DATE: 04/08/17 TIME: 22:42 Assessment/Plan Assessment/Plan Chief Complaint/Hosp Course A/P 1. 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 postop , NOW WITH Metastatic dis in the liver lobular area of elevated T2 signal is seen in the central liver worrisome for a mass possibly cholangiocarcinoma and this causes prominent intrahepatic biliary ductal dilatation of both the left and right intrahepatic biliary ducts with central loss of signal at the area of the mass. CT and MRI- REVIEWED TUMOR MARKERS : ca 19-9 1420 , ? 2 to tumor progression hepatobiliary consult noted- D/W Kt TRAORE POST drain placement in the right lobe of the liver- c/w abscess for possible stenting across the anastomosis on Saturday with IR LFT - noted, still with obstructive pattern 2. Obstructive jaundice. Stable, ro stricture/recurrent tumor. MRCP/GI eval, hepatobiliary surgery consult- REVIEWED surgical f-up Dr Anderson noted POST biliary drainage by interventional radiology- tpmorrow 3. Chronic Crohn's disease status post total proctocolectomy with J-pouch creation 2005. 4. Chronic primary sclerosing cholangitis w cholangiocarcinoma. Needs advanced care planning evaluated. Poor prognosis. Performance status questionable at this time for chemotherapy & bilirubin needs some improvement. 5. Malnutrition; oral feeds/Megace vs TPN 6. Active pouchitis? 7. Postop day 16 bd excision w cholecystectomy, excision of extrahepatic cbd and Isabell-en-Y hepaticojejunostomy. 8. Failure to thrive, may need snf 9. Anemia 10. Reactive thrombocytosis 11. Dyslipidemia. Problems: Consultation Date/Type/Reason Admit Date/Time March 30, 2017 at 18:53 Initial Consult Date 03/31/17 [facility] Provider: HUMZA JAIME MD 24 HR Interval Summary Free Text/Dictation all noted d/w dr TRAORE and pt for IR TOMORROW Exam/Review of Systems Vital Signs Vitals Vital Signs Date Time Temp Pulse Resp B/P Pulse Ox O2 Delivery O2 Flow Rate FiO2 04/08/17 20:44 47 04/08/17 20:00 98.2 15 120/71 97 04/04/17 12:02 Room Air Intake and Output 04/07/17 04/07/17 04/08/17 15:00 23:00 07:00 Intake Total 200 ml 550 ml 450 ml Output Total 1250 ml 40 ml Balance 200 ml -700 ml 410 ml Exam Constitutional: alert, oriented Head: normocephalic Respiratory: normal air movement Cardiovascular: regular rate and rhythm Gastrointestinal: non-tender, other (Noted with right flank drain), soft Extremities: No edema Neurological: nl mental status, nl speech Results Result Diagram: 04/08/17 0625 04/08/17 0625 Results 24 hrs Laboratory Tests Test 04/08/17 06:25 White Blood Count 13.2 #H Red Blood Count 2.37 L Hemoglobin 7.2 L Hematocrit 21.9 L Mean Corpuscular Volume 92.4 Mean Corpuscular Hemoglobin 30.4 Mean Corpuscular Hemoglobin Concent 32.9 Red Cell Distribution Width 20.2 H Platelet Count 373 # Mean Platelet Volume 10.0 Neutrophils % 93.2 H Lymphocytes % 3.6 L Monocytes % 2.4 Eosinophils % 0.0 Basophils % 0.0 Nucleated Red Blood Cells % 0.0 Neutrophils # 12.3 H Lymphocytes # 0.5 L Monocytes # 0.3 Eosinophils # 0.0 Basophils # 0.0 Nucleated Red Blood Cells # 0.0 Sodium Level 138 Potassium Level 3.3 L Chloride Level 100 Carbon Dioxide Level 32 H Anion Gap 9 Blood Urea Nitrogen 15 Creatinine 0.63 Glucose Level 156 Calcium Level 9.0 Medications Medications Current Medications Ondansetron HCl (Zofran Inj) 4 mg Q6H PRN IV NAUSEA AND/OR VOMITING; Start at 19:30 Acetaminophen (Tylenol Tab) 650 mg Q6H PRN PO PAIN LEVEL 1-3 OR FEVER; Start at 19:30 Docusate Sodium (Colace) 100 mg Q12H PRN PO CONSTIPATION; Start 03/30/17 at 19: 30 Magnesium Hydroxide (Milk Of Mag) 30 ml DAILY PRN PO CONSTIPATION; Start at 19:30 Sodium Biphosphate/ Sodium Phosphate (Fleet Enema) 133 ml DAILY PRN [place] CONSTIPATION; Start 03/30/17 at 19:30 Pantoprazole (Protonix Iv) 40 mg DAILY@06 IV Last administered on 04/08/17t 06: 28; Admin Dose 40 MG; Start 03/31/17 at 06:00 Lorazepam 0.5 mg 0.5 mg Q6H PRN IV ANXIETY; Start 03/30/17 at 19:30 Piperacillin Sod/ Tazobactam Sod (Zosyn 3.375gm/ 100 ml (Pmx)) 100 ml @ 200 mls /hr Q6 IVPB Last administered on 04/08/17 18:39; Admin Dose 200 MLS/HR; Start 03/31/17 at 00:00 Vancomycin HCl (Vanco Iv Per Pharmacy) VANCOMYCIN PER PHARMACY NOTE XX ; Start 03/30/17 at 19:30 Hydralazine HCl (Apresoline) 10 mg Q6H PRN IV ELEVATED BLOOD PRESSURE; Start at 19:30 Nitroglycerin (Nitroglycerin (Sl Tab) 0.4 Mg) 1 tab Q5M PRN SL ANGINA; Start at 19:30 Escitalopram Oxalate (Lexapro) 10 mg DAILY PO Last administered on 04/08/17 08 :59; Admin Dose 10 MG; Start 03/31/17 at 09:00 Hydromorphone HCl MG/HR CONTINUOUS R... Q4PCA IV Last administered on 15:09; Admin Dose 6 MG; Start 03/31/17 at 13:30 Vancomycin HCl/ Sodium Chloride (Vancocin/NS) 150 ml @ 75 mls/hr Q12H IVPB Last administered on 04/08/17 15:37; Admin Dose 75 MLS/HR; Start 04/04/17 at 15 :00 Methylprednisolone Sodium Succinate (Solu-Medrol) 60 mg Q12 IV Last administered on 04/08/17 22:11; Admin Dose 60 MG; Start 04/06/17 at 21:00 Potassium Chloride (Klor-Con 10) 10 meq BID PO Last administered on 04/08/17 22:11; Admin Dose 10 MEQ; Start 04/07/17 at 21:00 KIN ESTEBAN MD April 08, 2017 22:43
[2017-04-09] VITALS (20 sets, daily range): BP systolic 107–190; BP diastolic 60–97; PULSE 38–78; RESP 15–37
[2017-04-09] MEDS: PIPER-TAZO 3.375 GM IV (PMX) 100 ML IVPB SCH ×4 (00:28→18:56)
[2017-04-09] MEDS: VANCOMYCIN 750 MG in SOD CHLORIDE 0.9% 150 ML IVPB SCH ×2 (03:26→15:00)
[2017-04-09] MEDS: PANTOPRAZOLE 40 MG INJ IV SCH (06:10)
--- NOTE | 2017-04-09 08:02 | PN ---
Date/Time of Note Date/Time of Note DATE: 04/09/17 TIME: 07:59 Assessment/Plan Lines/Catheters IV Catheter Type (from Nrs): Peripheral IV Andrews in Place (from Nrs): No Assessment/Plan Assessment/Plan [facility] Progress Note Date of Service: 04/09/17 Today's Impression & Plan: Overall stable and improving. Awaiting IR intervention today with goal of potentially traversing the right choledochojejunostomy and evaluation of possible communication with the left system. With above assessment, I've recommended the following for today: 1. Continued aggressive medical management with broad spec antimicrobials for the next few days 2. Aggressive nutritional support with increased oral intake. 3. Labs in am 4. Attempt at stenting across the anastomosis with IR as above 5. Maximize antidepressants 6. Continued supportive care management 7. Adjustment of NSAIDs (? toradol) for back pain Thank you again for your great care of this very pleasant patient and wonderful family. If there are any questions, please feel free to call me at [phone]. TOTAL VISIT TIME: 20 minutes of which more than half was spent in [id number] discussion with the patient, possibly including family, as well as coordination of care between multiple physicians and providers. Disclaimer: Inadvertent spelling or grammatical errors are likely due to EHR/ dictation software use and do not reflect on the overall quality of patient care. Updated clinical summary: A very pleasant 61-year-old gentleman with significant past medical history including ulcerative colitis status post total proctocolectomy and ileoanal pouch as well as a number of other medical issues who was diagnosed with cholangiocarcinoma and underwent a radical bile duct resection that included extrahepatic bile duct and gallbladder at [facility], 2016, with final diagnosis of cholangiocarcinoma with 1/8 lymph node positive disease as well as low-grade dysplasia and carcinoma in situ at the proximal margin. The patient was readmitted to [facility] after a 2 month hospital stay at [facility] with increasing weakness, jaundice, and diffuse body pain. S/p perc drainage of right biliary system 04/03/17. COMORBIDITIES: 1. History of ulcerative colitis status post total proctocolectomy and ileoanal pouch. 2. Diagnosis of primary sclerosing cholangitis since 2008 being cared for at various institutions such as [facility] and by various physicians with involvement of Dr. Krystian Adkins for hepatology. 3. History of hospitalization at [facility] for bile duct obstruction from mid December to early March with bile duct excision with cholecystectomy with removal of extrahepatic bile duct and Isabell-en-Y hepaticojejunostomy on 07/2017 with the above-mentioned pathology. 4. Chronic back pain, mainly lower, for the last 5 to 6 years. 5. Significant weight loss of more than 20 to 30 pounds over the last 6 months. 6. No history of lymphoma (note that this was reported erroneously in the patient's chart. The patient does not report any history of lymphoma in the past and that is also corroborated by the patient's family). 7. Status post multiple ERCPs and stenting in the past since 2005. 8. Elevated alpha fetoprotein 1.8 in 12/2016. 9. Elevated CA19-9 of 272.9 in 12/2016. 10. Normal CEA at 1.6 on 01/14/2017. 11. Status post sigmoidoscopy, 01/16/2017, showing moderate pouchitis and negative for dysplasia or malignancy. 12. S/p perc drainage of right biliary system 04/03/17. Subjective: No major events or complaints; no major abd pain and under control with medications; sprained back; no n/v/d; no sob or cp; + flatus; + BM and normal for him; minimal activity; feels depressed, fatigued and weak. Objective: Vitals: See below Exam: GENERAL: On exam, the patient was laying in bed and appeared to be comfortable and in no acute distress. ABDOMEN: Soft, nontender and nondistended. Incisions are clean, dry and intact without any evidence of erythema, edema, discharge, or hernia. R biliary drain with less purulent fluid and trending toward more bilious output, although still serosanguineous, in the bag. There are no peritoneal signs or guarding. SKIN: Skin appears to be jaundiced and feels warm to touch. NEUROLOGIC: Patient was sleeping, but easily awake and remained alert, and followed commands appropriately. Exam/Review of Systems Vital Signs Vitals Vital Signs Date Time Temp Pulse Resp B/P Pulse Ox O2 Delivery O2 Flow Rate FiO2 04/09/17 07:20 97.5 41 18 123/70 97 Intake and Output 04/08/17 04/08/17 04/09/17 15:00 23:00 07:00 Intake Total 320 ml 1050 ml Output Total 600 ml 25 ml Balance -280 ml 1025 ml Results Result Diagram: 04/08/17 0625 04/08/17 0625 ZOE GOYAL M.D. April 09, 2017 08:02
[2017-04-09 08:49] LABS: ADD SCAN DIFF NO
[2017-04-09 08:57] LABS: BASOPHILS % 0.1 % (0.0-2.0); HEMATOCRIT 24.2 % (42.0-52.0); HEMOGLOBIN 7.7 g/dl (14.0-18.0); LYMPHOCYTES # 0.8 10^3/ul (0.8-2.9); LYMPHOCYTES % 4.8 % (15.0-51.0); MEAN CORPUSCULAR HEMOGLOBIN 30.1 pg (29.0-33.0); MEAN CORPUSCULAR HGB CONC 31.8 g/dl (32.0-37.0); MEAN CORPUSCULAR VOLUME 94.5 fl (82.0-101.0); MEAN PLATELET VOLUME 10.5 fl (7.4-10.4); MONOCYTE # 0.6 10^3/ul (0.3-0.9); MONOCYTES % 3.8 % (0.0-11.0); NEUTROPHIL # 14.5 10^3/ul (1.6-7.5); NEUTROPHILS % 90.6 % (39.0-77.0); PLATELET COUNT 376 10^3/UL (140-415); RED BLOOD COUNT 2.56 10^6/ul (4.70-6.10); RED CELL DISTRIBUTION WIDTH 21.2 % (11.5-14.5)
[2017-04-09 09:26] LABS: CREATININE 0.55 mg/dl (0.61-1.24); POTASSIUM 3.6 mmol/L (3.5-5.1)
[2017-04-09] MEDS: METHYLPREDNISOLONE 125 MG INJ IV SCH ×2 (11:15→21:09)
[2017-04-09] MEDS: ESCITALOPRAM 10 MG TAB PO SCH (11:16)
[2017-04-09] MEDS: KETOROLAC 30 MG INJ IV PRN ×2 (11:17→18:56)
[2017-04-09] MEDS: POTASSIUM CHLORIDE (SR) 10 MEQ TAB PO SCH ×2 (11:17→21:09)
--- NOTE | 2017-04-09 14:54 | PN ---
Date/Time of Note Date/Time of Note DATE: 04/09/17 TIME: 14:52 Assessment/Plan VTE Prophylaxis VTE Prophylaxis Intervention: SCD's Lines/Catheters IV [facility]ter [facility] (from [facility]): Peripheral IV Urinary Cath still in place: No Assessment/Plan Assessment/Plan Assessment * Obstructive jaundice S/P PTBD right biliary system 04/04/2017 S/P bile duct excision with cholecystectomy excision of extrahepatic duct,and Isabell en Y hepaticojejuniostomy sec to cholangiocarcinoma MRI 03/31/2017 There is a lobular area of elevated T2 signal is seen in the central liver worrisome for a mass possibly cholangiocarcinoma and this causes prominent intrahepatic biliary ductal dilatation of both the left and right intrahepatic biliary ducts with central loss of signal at the area of the mass. Prominent hepatomegaly is seen with findings suggestive for portal hypertension. Mild ascites is seen. Surgical changes are seen of the bowel with no evidence of an obstruction. There is a fecal filled colon * Hematochezia/Anemia * History of proctocolectomy with J pouch 2005 * History of sigmoidoscopy 01/2017 moderate pouchitis,no evidence of malignancy * Intractable pain Plan * Continue present management * pain control * monitor hemoglobin and hematocrit Q6 ,transfuse 1 unit of PRBC if Hgb<7.5, 2units of PRBC if Hgb <7 Subjective 24 Hr Interval Summary Free Text/Dictation * Course reviewed with RN * Patient in OR Exam/Review of Systems Vital Signs Vitals Vital Signs Date Time Temp Pulse Resp B/P Pulse Ox O2 Delivery O2 Flow Rate FiO2 04/09/17 12:46 42 04/09/17 12:00 98.3 19 120/73 97 Intake and Output 04/08/17 04/08/17 04/09/17 15:00 23:00 07:00 Intake Total 320 ml 1050 ml Output Total 600 ml 25 ml Balance -280 ml 1025 ml Exam Constitutional: frail Respiratory: diminished breath sounds, normal air movement Cardiovascular: nl pulses Results Result Diagram: 04/09/17 0711 04/09/17 0711 Results 24 hrs Laboratory Tests Test 04/09/17 07:11 White Blood Count 16.0 #H Red Blood Count 2.56 L Hemoglobin 7.7 L Hematocrit 24.2 L Mean Corpuscular Volume 94.5 Mean Corpuscular Hemoglobin 30.1 Mean Corpuscular Hemoglobin Concent 31.8 L Red Cell Distribution Width 21.2 H Platelet Count 376 Mean Platelet Volume 10.5 H Neutrophils % 90.6 H Lymphocytes % 4.8 L Monocytes % 3.8 Eosinophils % 0.0 Basophils % 0.1 Nucleated Red Blood Cells % 0.0 Neutrophils # 14.5 H Lymphocytes # 0.8 Monocytes # 0.6 Eosinophils # 0.0 Basophils # 0.0 Nucleated Red Blood Cells # 0.0 Sodium Level 139 Potassium Level 3.6 Chloride Level 103 Carbon Dioxide Level 30 Anion Gap 10 Blood Urea Nitrogen 22 H Creatinine 0.55 L Glucose Level 135 Calcium Level 9.0 Medications Medications Current Medications Ondansetron HCl (Zofran Inj) 4 mg Q6H PRN IV NAUSEA AND/OR VOMITING; Start at 19:30 Acetaminophen (Tylenol Tab) 650 mg Q6H PRN PO PAIN LEVEL 1-3 OR FEVER; Start at 19:30 Docusate Sodium (Colace) 100 mg Q12H PRN PO CONSTIPATION; Start 03/30/17 at 19: 30 Magnesium Hydroxide (Milk Of Mag) 30 ml DAILY PRN PO CONSTIPATION; Start at 19:30 Sodium Biphosphate/ Sodium Phosphate (Fleet Enema) 133 ml DAILY PRN [place] CONSTIPATION; Start 03/30/17 at 19:30 Pantoprazole (Protonix Iv) 40 mg DAILY@06 IV Last administered on 04/09/17 06: 10; Admin Dose 40 MG; Start 03/31/17 at 06:00 Lorazepam 0.5 mg 0.5 mg Q6H PRN IV ANXIETY; Start 03/30/17 at 19:30 Piperacillin Sod/ Tazobactam Sod (Zosyn 3.375gm/ 100 ml (Pmx)) 100 ml @ 200 mls /hr Q6 IVPB Last administered on 04/09/17 11:17; Admin Dose 200 MLS/HR; Start 03/31/17 at 00:00 Vancomycin HCl (Vanco Iv Per Pharmacy) VANCOMYCIN PER PHARMACY NOTE XX ; Start 03/30/17 at 19:30 Hydralazine HCl (Apresoline) 10 mg Q6H PRN IV ELEVATED BLOOD PRESSURE; Start at 19:30 Nitroglycerin (Nitroglycerin (Sl Tab) 0.4 Mg) 1 tab Q5M PRN SL ANGINA; Start at 19:30 Escitalopram Oxalate (Lexapro) 10 mg DAILY PO Last administered on 04/09/17 11 :16; Admin Dose 10 MG; Start 03/31/17 at 09:00 Hydromorphone HCl MG/HR CONTINUOUS R... Q4PCA IV Last administered on 15:09; Admin Dose 6 MG; Start 03/31/17 at 13:30 Vancomycin HCl/ Sodium Chloride (Vancocin/NS) 150 ml @ 75 mls/hr Q12H IVPB Last administered on 04/09/17 03:26; Admin Dose 75 MLS/HR; Start 04/04/17 at 15 :00 Methylprednisolone Sodium Succinate (Solu-Medrol) 60 mg Q12 IV Last administered on 04/09/17 11:15; Admin Dose 60 MG; Start 04/06/17 at 21:00 Potassium Chloride (Klor-Con 10) 10 meq BID PO Last administered on 04/09/17 11:17; Admin Dose 10 MEQ; Start 04/07/17 at 21:00 Ketorolac Tromethamine (Toradol) 30 mg Q6H PRN IV PAIN Last administered on 11:17; Admin Dose 30 MG; Start 04/09/17 at 11:00; Stop 04/12/17 at 10:59 BRAD PRADO MD April 09, 2017 14:54
--- NOTE | 2017-04-09 15:00 | PN ---
Date/Time of Note Date/Time of Note DATE: 04/09/17 TIME: 14:58 Assessment/Plan VTE Prophylaxis VTE Prophylaxis Intervention: SCD's Lines/Catheters IV Catheter Type (from Nrs): Peripheral IV Urinary Cath still in place: No Assessment/Plan Chief Complaint/Hosp Course Assessment and plan 1. 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 Patient postop cholecystectomy and excision of extrahepatic CBD and Isabell-en-Y hepaticojejunostomy. Continue with analgesics. Surgeon following. Tentative plan for IR intervention on April 09, 2017. cont wound care 2. History of chronic Crohn's disease status post proximal colectomy with J- pouch creation in 2005. Continue GI recommendations. 3. 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 Oncologist following. Further management for consideration of possible chemotherapy/radiation per oncologist. Unstable for chemo/radiation at this time 4. bradycardia. Asymptomatic present. Continue telemetry monitoring. 5. History of depression. Patient to be continued on Lexapro medication. no reports of suicidal ideation during visit 6. Noted failure to thrive. Encourage oral intake. 7. thromboycytopenia. Monitor for signs or symptoms of bleeding. Disposition and plan: Tentative plan for IR intervention on April 09, 2017. Continue with analgesics. Patient DNR. cont supportive care. toradol added for pain Discussed plan of care with Dr. Sanz Problems: Subjective 24 Hr Interval Summary Free Text/Dictation reports feeling depressed, by no suicidal ideation or plan for self harm. Exam/Review of Systems Vital Signs Vitals Vital Signs Date Time Temp Pulse Resp B/P Pulse Ox O2 Delivery O2 Flow Rate FiO2 04/09/17 12:46 42 04/09/17 12:00 98.3 19 120/73 97 Intake and Output 04/08/17 04/08/17 04/09/17 15:00 23:00 07:00 Intake Total 320 ml 1050 ml Output Total 600 ml 25 ml Balance -280 ml 1025 ml Exam Constitutional: alert, frail, oriented Psych: depression Neck: No jvd Respiratory: clear to auscultation, normal air movement Cardiovascular: regular rate and rhythm Gastrointestinal: other (right flank drainage ), soft, tender Musculoskeletal: No nl gait and stance Neurological: ACCOUNTING SUPERVISOR II-XII intact, nl mental status, nl speech Results Result Diagram: 04/09/1711 5/23/17 0711 Results 24 hrs Laboratory Tests Test 04/09/17 07:11 White Blood Count 16.0 #H Red Blood Count 2.56 L Hemoglobin 7.7 L Hematocrit 24.2 L Mean Corpuscular Volume 94.5 Mean Corpuscular Hemoglobin 30.1 Mean Corpuscular Hemoglobin Concent 31.8 L Red Cell Distribution Width 21.2 H Platelet Count 376 Mean Platelet Volume 10.5 H Neutrophils % 90.6 H Lymphocytes % 4.8 L Monocytes % 3.8 Eosinophils % 0.0 Basophils % 0.1 Nucleated Red Blood Cells % 0.0 Neutrophils # 14.5 H Lymphocytes # 0.8 Monocytes # 0.6 Eosinophils # 0.0 Basophils # 0.0 Nucleated Red Blood Cells # 0.0 Sodium Level 139 Potassium Level 3.6 Chloride Level 103 Carbon Dioxide Level 30 Anion Gap 10 Blood Urea Nitrogen 22 H Creatinine 0.55 L Glucose Level 135 Calcium Level 9.0 Medications Medications Current Medications Ondansetron HCl (Zofran Inj) 4 mg Q6H PRN IV NAUSEA AND/OR VOMITING; Start at 19:30 Acetaminophen (Tylenol Tab) 650 mg Q6H PRN PO PAIN LEVEL 1-3 OR FEVER; Start at 19:30 Docusate Sodium (Colace) 100 mg Q12H PRN PO CONSTIPATION; Start 03/30/17 at 19: 30 Magnesium Hydroxide (Milk Of Mag) 30 ml DAILY PRN PO CONSTIPATION; Start at 19:30 Sodium Biphosphate/ Sodium Phosphate (Fleet Enema) 133 ml DAILY PRN [place] CONSTIPATION; Start 03/30/17 at 19:30 Pantoprazole (Protonix Iv) 40 mg DAILY@06 IV Last administered on 04/09/17 06: 10; Admin Dose 40 MG; Start 03/31/17 at 06:00 Lorazepam 0.5 mg 0.5 mg Q6H PRN IV ANXIETY; Start 03/30/17 at 19:30 Piperacillin Sod/ Tazobactam Sod (Zosyn 3.375gm/ 100 ml (Pmx)) 100 ml @ 200 mls /hr Q6 IVPB Last administered on 04/09/17 11:17; Admin Dose 200 MLS/HR; Start 03/31/17 at 00:00 Vancomycin HCl (Vanco Iv Per Pharmacy) VANCOMYCIN PER PHARMACY NOTE XX ; Start 03/30/17 at 19:30 Hydralazine HCl (Apresoline) 10 mg Q6H PRN IV ELEVATED BLOOD PRESSURE; Start at 19:30 Nitroglycerin (Nitroglycerin (Sl Tab) 0.4 Mg) 1 tab Q5M PRN SL ANGINA; Start at 19:30 Escitalopram Oxalate (Lexapro) 10 mg DAILY PO Last administered on 04/09/17 11 :16; Admin Dose 10 MG; Start 03/31/17 at 09:00 Hydromorphone HCl MG/HR CONTINUOUS R... Q4PCA IV Last administered on 15:09; Admin Dose 6 MG; Start 03/31/17 at 13:30 Vancomycin HCl/ Sodium Chloride (Vancocin/NS) 150 ml @ 75 mls/hr Q12H IVPB Last administered on 04/09/17 03:26; Admin Dose 75 MLS/HR; Start 04/04/17 at 15 :00 Methylprednisolone Sodium Succinate (Solu-Medrol) 60 mg Q12 IV Last administered on 04/09/17 11:15; Admin Dose 60 MG; Start 04/06/17 at 21:00 Potassium Chloride (Klor-Con 10) 10 meq BID PO Last administered on 04/09/17 11:17; Admin Dose 10 MEQ; Start 04/07/17 at 21:00 Ketorolac Tromethamine (Toradol) 30 mg Q6H PRN IV PAIN Last administered on 11:17; Admin Dose 30 MG; Start 04/09/17 at 11:00; Stop 04/12/17 at 10:59 CANDIS MARIE April 09, 2017 15:00
[2017-04-09] MEDS ORDERED: FENTAnyl 50 MCG/ML VIAL ONE ×2 (15:26→16:58)
[2017-04-09] MEDS ORDERED: MIDAZOLAM 1 MG/ML 2 ML INJ ONE (15:26)
[2017-04-09] MEDS ORDERED: IOHEXOL 300MG/ML 30 ML BTL ONE ×2 (15:43→16:44)
[2017-04-09] MEDS ORDERED: LIDOCAINE 1% (MDV) 20 ML INJ ONE (15:51)
[2017-04-09] MEDS ORDERED: CEFAZOLIN 1 GM INJ ONE (17:22)
[2017-04-09] MEDS ORDERED: PROPOFOL 40 ML ONE (17:22)
[2017-04-09] MEDS ORDERED: LIDOCAINE 2% (SDV) 5 ML INJ ONE (17:22)
--- NOTE | 2017-04-09 18:13 | RADRPT ---
PROCEDURE: Fluoroscopic guided internal external biliary drainage with stent placement and transhe patic cholangiogram. CLINICAL INDICATION: Biliary obstruction. TECHNIQUE: Prior to the procedure, informed consent was obtained. Risks including bleeding and inf ection were explained to the patient. The patient understood and was willing to proceed. A procedura l pause was performed. The patient's name, date of , and procedure to be performed were verifie d. The right upper quadrant, left upper quadrant of the abdomen, and the existing biliary drainage c atheter were prepped and draped in the usual sterile fashion. Contrast was injected into the existing biliary drainage catheter and digital images were obtained. The catheter is within the right main bile duct. The common bile duct is dilated and the right int rahepatic bile ducts are dilated. Contrast does not enter the left intrahepatic bile ducts. 1% lid ocaine was injected around the existing catheter. The catheter was removed over a 0.035 inch guidew juany. A Kumpe catheter was then advanced over the guide wire and multiple attempts were made to direc tly catheter and guide wire into the common bile duct. This was unsuccessful due to a severe strict ure at this site. Therefore, a new 8.5 Luxembourger Estrada-Nuñez catheter was replaced over the guidewi re and left in place. The catheter was then secured to the patient's skin with 3-0 monofilament. Following this, attention was turned to the left side of the liver. 8 21-gauge needle was advanced into the left lobe of liver and withdrawn while injecting Omnipaque-3 00 with fluoroscopic guidance. The needle anterior day bile duct. A 0.018 inches guidewire was adv anced through the needle into the biliary system. The tract was dilated to a 8-Luxembourger. A 0.035-inc h Amplatz guidewire was advanced through the dilator into the biliary system and this was then advan breanna through the common bile duct into the jejunum. Contrast was injected, opacifying the bowel. An 8.5 -Luxembourger internal external biliary drainage catheter was then advanced over the guide wire such t hat the distal pigtail was in the bowel and side holes were present in the common bile duct and the left hepatic lobe bile ducts. The catheter was then secured to the patient's skin with 3-0 monofila ment. The drainage catheter was then connected to a standard gravity drainage bag. Purulent bile was aspirated and sent for culture and sensitivity. A total of 6 minutes of fluoroscopy time was used. COMPARISON: Cholangiogram and a right-sided biliary drainage dated 04/04/2017. FINDINGS: Images with contrast demonstrate dilated intrahepatic bile ducts and prior surgery with choledochoje junostomy. The right-sided catheter pigtail is in dilated right intrahepatic bile ducts. With the l eft-sided catheter in position, contrast is present in the biliary system and the jejunum. IMPRESSION: 1. Attempted placement of right-sided internal external drainage catheter. This was unsuccessful a nd the external biliary drainage catheter was replaced. 2. Satisfactory placement of left internal external biliary drainage catheter. Call report: A call report of the findings was made to Dr. Anderson on 04/09/2017 at 1800 hours. RPTAT: QQ .Talat Grijalva MD, Date Time Electronically viewed and signed by .Talat Grijalva MD, on 04/09/2017 18:12 .R/
--- NOTE | 2017-04-09 21:53 | CONS ---
Date/Time of Note Date/Time of Note DATE: 04/09/17 TIME: 21:51 Assessment/Plan Assessment/Plan Chief Complaint/Hosp Course A/P 1. 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 postop , NOW WITH Metastatic dis in the liver lobular area of elevated T2 signal is seen in the central liver worrisome for a mass possibly cholangiocarcinoma and this causes prominent intrahepatic biliary ductal dilatation of both the left and right intrahepatic biliary ducts with central loss of signal at the area of the mass. CT and MRI- REVIEWED TUMOR MARKERS : ca 19-9 1420 , ? 2 to tumor progression hepatobiliary consult noted- D/W Kt TRAORE POST drain placement in the right lobe of the liver- c/w abscess POST stenting across the anastomosis with IR LFT - noted, still with obstructive pattern 2. Obstructive jaundice. Stable, ro stricture/recurrent tumor. MRCP/GI eval, hepatobiliary surgery consult- REVIEWED surgical f-up Dr Anderson noted POST biliary drainage by interventional radiology 3. Chronic Crohn's disease status post total proctocolectomy with J-pouch creation 2005. 4. Chronic primary sclerosing cholangitis w cholangiocarcinoma. Needs advanced care planning evaluated. Poor prognosis. Performance status questionable at this time for chemotherapy & bilirubin needs some improvement. 5. Malnutrition; oral feeds/Megace vs TPN 6. Active pouchitis? 7. Postop day 16 bd excision w cholecystectomy, excision of extrahepatic cbd and Isabell-en-Y hepaticojejunostomy. 8. Failure to thrive, may need snf 9. Anemia 10. Reactive thrombocytosis 11. Dyslipidemia. Problems: Consultation Date/Type/Reason Admit Date/Time March 30, 2017 at 18:53 Initial Consult Date 03/31/17 Type of Consultation: [facility] Referring Provider: HUMZA JAIME MD 24 HR Interval Summary Free Text/Dictation ALL NOTED POST IR INTERVENTION WEAK DEPRESSED Exam/Review of Systems Vital Signs Vitals Vital Signs Date Time Temp Pulse Resp B/P Pulse Ox O2 Delivery O2 Flow Rate FiO2 04/09/17 20:45 65 04/09/17 20:33 97.6 18 117/67 97 04/09/17 17:58 Room Air Intake and Output 04/08/17 04/08/17 04/09/17 15:00 23:00 07:00 Intake Total 320 ml 1050 ml Output Total 600 ml 25 ml Balance -280 ml 1025 ml Exam Constitutional: alert, oriented Head: normocephalic Respiratory: normal air movement Cardiovascular: regular rate and rhythm Gastrointestinal: non-tender, other (Noted with right flank drain), soft Extremities: No edema Neurological: nl mental status, nl speech Results Result Diagram: 04/09/17 0711 04/09/17 0711 Results 24 hrs Laboratory Tests Test 04/09/17 07:11 White Blood Count 16.0 #H Red Blood Count 2.56 L Hemoglobin 7.7 L Hematocrit 24.2 L Mean Corpuscular Volume 94.5 Mean Corpuscular Hemoglobin 30.1 Mean Corpuscular Hemoglobin Concent 31.8 L Red Cell Distribution Width 21.2 H Platelet Count 376 Mean Platelet Volume 10.5 H Neutrophils % 90.6 H Lymphocytes % 4.8 L Monocytes % 3.8 Eosinophils % 0.0 Basophils % 0.1 Nucleated Red Blood Cells % 0.0 Neutrophils # 14.5 H Lymphocytes # 0.8 Monocytes # 0.6 Eosinophils # 0.0 Basophils # 0.0 Nucleated Red Blood Cells # 0.0 Sodium Level 139 Potassium Level 3.6 Chloride Level 103 Carbon Dioxide Level 30 Anion Gap 10 Blood Urea Nitrogen 22 H Creatinine 0.55 L Glucose Level 135 Calcium Level 9.0 Medications Medications Current Medications Ondansetron HCl (Zofran Inj) 4 mg Q6H PRN IV NAUSEA AND/OR VOMITING; Start at 19:30 Acetaminophen (Tylenol Tab) 650 mg Q6H PRN PO PAIN LEVEL 1-3 OR FEVER; Start at 19:30 Docusate Sodium (Colace) 100 mg Q12H PRN PO CONSTIPATION; Start 03/30/17 at 19: 30 Magnesium Hydroxide (Milk Of Mag) 30 ml DAILY PRN PO CONSTIPATION; Start at 19:30 Sodium Biphosphate/ Sodium Phosphate (Fleet Enema) 133 ml DAILY PRN [place] CONSTIPATION; Start 03/30/17 at 19:30 Pantoprazole (Protonix Iv) 40 mg DAILY@06 IV Last administered on 04/09/17t 06: 10; Admin Dose 40 MG; Start 03/31/17 at 06:00 Lorazepam 0.5 mg 0.5 mg Q6H PRN IV ANXIETY; Start 03/30/17 at 19:30 Piperacillin Sod/ Tazobactam Sod (Zosyn 3.375gm/ 100 ml (Pmx)) 100 ml @ 200 mls /hr Q6 IVPB Last administered on 04/09/17 18:56; Admin Dose 200 MLS/HR; Start 03/31/17 at 00:00 Vancomycin HCl (Vanco Iv Per Pharmacy) VANCOMYCIN PER PHARMACY NOTE XX ; Start 03/30/17 at 19:30 Hydralazine HCl (Apresoline) 10 mg Q6H PRN IV ELEVATED BLOOD PRESSURE; Start at 19:30 Nitroglycerin (Nitroglycerin (Sl Tab) 0.4 Mg) 1 tab Q5M PRN SL ANGINA; Start at 19:30 Escitalopram Oxalate (Lexapro) 10 mg DAILY PO Last administered on 04/09/17 11 :16; Admin Dose 10 MG; Start 03/31/17 at 09:00 Hydromorphone HCl MG/HR CONTINUOUS R... Q4PCA IV Last administered on 15:09; Admin Dose 6 MG; Start 03/31/17 at 13:30 Vancomycin HCl/ Sodium Chloride (Vancocin/NS) 150 ml @ 75 mls/hr Q12H IVPB Last administered on 04/09/17 03:26; Admin Dose 75 MLS/HR; Start 04/04/17 at 15 :00 Methylprednisolone Sodium Succinate (Solu-Medrol) 60 mg Q12 IV Last administered on 04/09/17 21:09; Admin Dose 60 MG; Start 04/06/17 at 21:00 Potassium Chloride (Klor-Con 10) 10 meq BID PO Last administered on 04/09/17 21:09; Admin Dose 10 MEQ; Start 04/07/17 at 21:00 Ketorolac Tromethamine (Toradol) 30 mg Q6H PRN IV PAIN Last administered on 18:56; Admin Dose 30 MG; Start 04/09/17 at 11:00; Stop 04/12/17 at 10:59 KIN ESTEBAN MD April 09, 2017 21:53
[2017-04-10] VITALS (12 sets, daily range): BP systolic 90–123; BP diastolic 57–68; PULSE 40–57; RESP 18
[2017-04-10] MEDS: PIPER-TAZO 3.375 GM IV (PMX) 100 ML IVPB SCH ×5 (01:34→23:07)
[2017-04-10] MEDS: VANCOMYCIN 750 MG in SOD CHLORIDE 0.9% 150 ML IVPB SCH ×3 (03:32→14:30)
[2017-04-10] MEDS: PANTOPRAZOLE 40 MG INJ IV SCH (06:04)
[2017-04-10 07:25] LABS: ADD SCAN DIFF NO
[2017-04-10 07:47] LABS: ABNORMAL IP MESSAGE 1; HEMATOCRIT 23.4 % (42.0-52.0); HEMOGLOBIN 7.6 g/dl (14.0-18.0); MEAN CORPUSCULAR HEMOGLOBIN 30.8 pg (29.0-33.0); MEAN CORPUSCULAR HGB CONC 32.5 g/dl (32.0-37.0); MEAN CORPUSCULAR VOLUME 94.7 fl (82.0-101.0); MEAN PLATELET VOLUME 10.5 fl (7.4-10.4); PLATELET COUNT 319 10^3/UL (140-415); RED BLOOD COUNT 2.47 10^6/ul (4.70-6.10); RED CELL DISTRIBUTION WIDTH 21.7 % (11.5-14.5)
[2017-04-10 08:20] LABS: POTASSIUM 3.7 mmol/L (3.5-5.1)
[2017-04-10 08:22] LABS: CREATININE 0.66 mg/dl (0.61-1.24)
[2017-04-10 08:23] LABS: CALCIUM 8.4 mg/dl (8.4-10.2)
[2017-04-10] MEDS: METHYLPREDNISOLONE 125 MG INJ IV SCH (09:04)
[2017-04-10] MEDS: POTASSIUM CHLORIDE (SR) 10 MEQ TAB PO SCH ×2 (09:06→21:32)
[2017-04-10] MEDS: ESCITALOPRAM 10 MG TAB PO SCH (09:06)
[2017-04-10 09:41] LABS: LYMPHOCYTES # 0.5 10^3/ul (0.8-2.9); MONOCYTE # 1.3 10^3/ul (0.3-0.9); NEUTROPHIL # 23.8 10^3/ul (1.6-7.5)
[2017-04-10 09:43] LABS: HYPOCHROMASIA 1+
--- NOTE | 2017-04-10 11:59 | CONS ---
DATE OF ADMISSION: 03/30/2017 DATE OF CONSULTATION: 04/10/2017 PAIN MANAGEMENT PALLIATIVE CARE PROGRESS NOTE HISTORY OF PRESENT ILLNESS: Mr. Son is doing reasonably well from a pain management standpoint, a nd he has not used the DIGESTER OPERATOR, which is set at p.r.n. 0.1 mg infrequently. He denies nausea, vomiting, chest pain, shortness of breath, cough associated with the pain control medications. His pain is s ignificantly alleviated with the above dosing. Pain is described as lumbosacral spine which he descr ibes as recent movement activity, which is exacerbated with movement now but there is no pain at re st. Denies any warning signs associated with it. Once again with pain control medications he has don e well and 90% of his pain is under control. Pain is clinically significant, as patient is unable to ambulate well the majority of the time and requires assistance. This an in addition pain, as compar ed to his metastatic abdominal discomfort. His physical functioning is impaired. Social relationshi ps are worse as patient is anxious and emotionally labile. Sleeping patterns are better now with ad equate pain control medications. Once again no nausea, vomiting, constipated pruritus, mental confu johnny, hallucinations associated with. The patient does not ask for escalating doses of pain control medications. He does not appear intoxicated. He does not request early dosages to be given or verde ge of administration. He does not use the pain control medications for situational stress or anxiety or depression. Overall severity of his pain both from his spine and from his malignancy in his abd omen is moderate. We will continue with the current pain control medications. Insofar as his anxiet y level of depression is under control, anxiety level is understandably an issue, as patient becomes very labile when he speaks about his underlying etiology and his prognosis. I have had a long disc ussion with him about requiring hospice care at home if he decides to forego any further aggressive care. He seems to be receptive. to that. PHYSICAL EXAMINATION: VITAL SIGNS: Blood pressure 100/65, pulse of 43 and regular, respirations of 18, temperature 98.4 d egrees, 98% saturation on room air. HEENT: Normocephalic and atraumatic. Anicteric, acyanotic. NEUROLOGIC: Cranial nerves II through XII are grossly intact. Motor, sensory findings are grossly within normal limits. ABDOMEN: Grossly benign. CARDIAC: S1, S2, without S3, S4, murmur, gallop, rub. Normal rate, normal rhythm on examination. ASSESSMENT AND PLAN: Insofar as anxiety, I will add on a low dose of Xanax, very low dose 0.25 mg 6 hours as needed. We will slightly bump up his dose of Lexapro to 20 mg daily. Follow his clinical co urse. Continue with his hydromorphone and lower his dose of Solu-Medrol. Dictated By: SAVANAH DUBOSE MD LP/NTS Conf#: [id number] DID#: [id number]
--- NOTE | 2017-04-10 13:24 | RADRPT ---
Vent Rate: 83 bpm RR Interval: 0 msec TN Interval: 148 msec QRS Duration: 80 msec QT Interval: 350 msec QTC Interval: 411 msec P-R-T [place]: 43 - 59 - 49 degrees Normal sinus rhythm Normal ECG Electronically Signed By: Raad Dickey [id number]
--- NOTE | 2017-04-10 14:14 | PN ---
DATE: 04/10/2017 CARDIOLOGY FOLLOWUP SUBJECTIVE: Discussed with the staff. Rhythm strip was reviewed. The patient remains in sinus bra dycardia. No reported symptoms with it. Again with no syncope or presyncope. MEDICATIONS: Reviewed. PHYSICAL EXAMINATION: VITAL SIGNS: Temperature 98.4, heart rate of 43, blood pressure 100/65, respiration rate of 18. HEENT: Normocephalic, atraumatic. Thin gentleman. CARDIOVASCULAR: Bradycardia. PULMONARY: No wheezes. GASTROINTESTINAL: Soft. EXTREMITIES: With no significant edema. NEUROLOGIC: Awake and alert. PSYCHIATRIC: Anxious. LABORATORY: WBC of 25.9, hemoglobin 7.6, platelets 319. Sodium 140, potassium 3.7, BUN of 26, crea tinine 0.66, glucose 134. ASSESSMENT AND PLAN: 1. Sick sinus syndrome, marked sinus bradycardia, currently continues to be asymptomatic. 2. Metastatic cholangiocarcinoma. 3. History of Crohn's Disease and colectomy. 4. History of primary sclerosing cholangitis. 5. History of depression. 6. Failure to thrive. 7. Thrombocytopenia. 8. Malnutrition. RECOMMENDATIONS: Code status is DNR. Continue supportive care. Palliative care has been following the patient. No benefit from the pacemaker at this point. Dictated By: POOJA CHAVEZ MD AV/NTS Conf#: [id number] DID#: [id number] CC: CANDIS MARIE NP;*EndCC*
[2017-04-10 16:08] LABS: WHITE BLOOD COUNT 25.9 10^3/ul (4.8-10.8)
--- NOTE | 2017-04-10 16:23 | PN ---
Date/Time of Note Date/Time of Note DATE: 04/10/17 TIME: 16:18 Assessment/Plan VTE Prophylaxis VTE Prophylaxis Intervention: SCD's Lines/Catheters IV Catheter Type (from [facility]): Saline Lock Urinary Cath still in place: No Assessment/Plan Chief Complaint/Hosp Course 1. 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 Patient postop cholecystectomy and excision of extrahepatic CBD and Isabell-en-Y hepaticojejunostomy. Continue with analgesics. Surgeon following. s/p IR intervention on April 09, 2017. cont wound care 2. History of chronic Crohn's disease status post proximal colectomy with J- pouch creation in 2005. Continue GI recommendations. 3. 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 Oncologist following. Further management for consideration of possible chemotherapy/radiation per oncologist. Unstable for chemo/radiation at this time 4. bradycardia. Asymptomatic present. Continue telemetry monitoring. 5. History of depression. Patient to be continued on Lexapro medication. no reports of suicidal ideation during visit 6. Noted failure to thrive. Encourage oral intake. 7. thromboycytopenia. Monitor for signs or symptoms of bleeding. Disposition and plan: s/p IR intervention on April 09, 2017. Continue with analgesics. Follow-up on cultures of gallbladder fluid Culture. ID to follow for antibiotic regimen Discussed plan of care with Dr. Sanz Problems: Subjective 24 Hr Interval Summary Free Text/Dictation Sitting in chair. Family at bedside. Exam/Review of Systems Vital Signs Vitals Vital Signs Date Time Temp Pulse Resp B/P Pulse Ox O2 Delivery O2 Flow Rate FiO2 04/10/17 15:40 98.4 60 18 100/59 94 04/09/17 17:58 Room Air Intake and Output 04/09/17 04/09/17 04/10/17 15:00 23:00 07:00 Intake Total 600 ml 150 ml 100 ml Output Total 490 ml 2 ml 55 ml Balance 110 ml 148 ml 45 ml Exam Constitutional: alert, frail, oriented Psych: depression Neck: No jvd Respiratory: clear to auscultation, normal air movement Cardiovascular: regular rate and rhythm Gastrointestinal: other (right flank drainage bag x2 ), soft, tender Musculoskeletal: No nl gait and stance Neurological: TUYERE FITTER II-XII intact, nl mental status, nl speech Results Result Diagram: 04/10/17 0650 04/10/17 0650 Results 24 hrs Laboratory Tests Test 04/10/17 06:50 White Blood Count 25.9 #H Red Blood Count 2.47 L Hemoglobin 7.6 L Hematocrit 23.4 L Mean Corpuscular Volume 94.7 Mean Corpuscular Hemoglobin 30.8 Mean Corpuscular Hemoglobin Concent 32.5 Red Cell Distribution Width 21.7 H Platelet Count 319 Mean Platelet Volume 10.5 H Neutrophils % 92.0 H Band Neutrophils % 1.0 Lymphocytes % 2.0 L Monocytes % 5.0 Neutrophils # 23.8 H Lymphocytes # 0.5 L Monocytes # 1.3 H Polychromasia Hypochromasia 1+ Macrocytosis 1+ Sodium Level 140 Potassium Level 3.7 Chloride Level 102 Carbon Dioxide Level 27 Anion Gap 15 Blood Urea Nitrogen 26 H Creatinine 0.66 Glucose Level 134 Calcium Level 8.4 Medications Medications Current Medications Ondansetron HCl (Zofran Inj) 4 mg Q6H PRN IV NAUSEA AND/OR VOMITING; Start at 19:30 Acetaminophen (Tylenol Tab) 650 mg Q6H PRN PO PAIN LEVEL 1-3 OR FEVER; Start at 19:30 Docusate Sodium (Colace) 100 mg Q12H PRN PO CONSTIPATION; Start 03/30/17 at 19: 30 Magnesium Hydroxide (Milk Of Mag) 30 ml DAILY PRN PO CONSTIPATION; Start at 19:30 Sodium Biphosphate/ Sodium Phosphate (Fleet Enema) 133 ml DAILY PRN [place] CONSTIPATION; Start 03/30/17 at 19:30 Pantoprazole 40 mg 40 mg DAILY@06 IV Last administered on 04/10/17 06:04; Admin Dose 40 MG; Start 03/31/17 at 06:00 Piperacillin Sod/ Tazobactam Sod (Zosyn 3.375gm/ 100 ml (Pmx)) 100 ml @ 200 mls /hr Q6 IVPB Last administered on 04/10/17 12:52; Admin Dose 200 MLS/HR; Start 03/31/17 at 00:00 Vancomycin HCl (Vanco Iv Per Pharmacy) VANCOMYCIN PER PHARMACY NOTE XX ; Start 03/30/17 at 19:30 Hydralazine HCl (Apresoline) 10 mg Q6H PRN IV ELEVATED BLOOD PRESSURE; Start at 19:30 Nitroglycerin (Nitroglycerin (Sl Tab) 0.4 Mg) 1 tab Q5M PRN SL ANGINA; Start at 19:30 Hydromorphone HCl MG/HR CONTINUOUS R... Q4PCA IV Last administered on 15:09; Admin Dose 6 MG; Start 03/31/17 at 13:30 Vancomycin HCl/ Sodium Chloride (Vancocin/NS) 150 ml @ 75 mls/hr Q12H IVPB Last administered on 04/10/17 14:30; Admin Dose 75 MLS/HR; Start 04/04/17 at 15 :00 Potassium Chloride (Klor-Con 10) 10 meq BID PO Last administered on 04/10/17 09:06; Admin Dose 10 MEQ; Start 04/07/17 at 21:00 Escitalopram Oxalate (Lexapro) 20 mg DAILY PO ; Start 04/11/17 at 09:00 Methylprednisolone Sodium Succinate (Solu-Medrol) 60 mg AM IV ; Start 04/11/17 at 09:00 Miscellaneous Information (*Rx Drug Level Order Reminder*) VANCOMYCIN TROUGH LEVEL... ONCE ONCE XX ; Start 04/11/17 at 02:00; Stop 04/11/17 at 02:01 CANDIS MARIE April 10, 2017 16:23
--- NOTE | 2017-04-10 16:40 | PN ---
Date/Time of Note Date/Time of Note DATE: 04/10/17 TIME: 16:38 Assessment/Plan VTE Prophylaxis VTE Prophylaxis Intervention: SCD's Lines/Catheters IV Catheter Type (from [facility]): Saline Lock Urinary Cath still in place: No Assessment/Plan Assessment/Plan Assessment * Obstructive jaundice S/P PTBD 04/09/2017 S/P PTBD right biliary system 04/04/2017 S/P bile duct excision with cholecystectomy excision of extrahepatic duct,and Isabell en Y hepaticojejuniostomy sec to cholangiocarcinoma MRI 03/31/2017 There is a lobular area of elevated T2 signal is seen in the central liver worrisome for a mass possibly cholangiocarcinoma and this causes prominent intrahepatic biliary ductal dilatation of both the left and right intrahepatic biliary ducts with central loss of signal at the area of the mass. Prominent hepatomegaly is seen with findings suggestive for portal hypertension. Mild ascites is seen. Surgical changes are seen of the bowel with no evidence of an obstruction. There is a fecal filled colon * Hematochezia/Anemia * History of proctocolectomy with J pouch 2005 * History of sigmoidoscopy 01/2017 moderate pouchitis,no evidence of malignancy * Intractable pain Plan * Continue present management * pain control * monitor hemoglobin and hematocrit Q6 ,transfuse 1 unit of PRBC if Hgb<7.5, 2units of PRBC if Hgb <7 Subjective 24 Hr Interval Summary Free Text/Dictation * Course reviewed with RN * S/P IR 04/09/2017 Exam/Review of Systems Vital Signs Vitals Vital Signs Date Time Temp Pulse Resp B/P Pulse Ox O2 Delivery O2 Flow Rate FiO2 04/10/17 15:40 98.4 60 18 100/59 94 04/09/17 17:58 Room Air Intake and Output 04/09/17 04/09/17 04/10/17 15:00 23:00 07:00 Intake Total 600 ml 150 ml 100 ml Output Total 490 ml 2 ml 55 ml Balance 110 ml 148 ml 45 ml Exam Constitutional: alert, frail Neck: non-tender, supple Respiratory: clear to auscultation, normal air movement Cardiovascular: nl pulses, regular rate and rhythm Gastrointestinal: soft Musculoskeletal: nl extremities to inspection Results Result Diagram: 04/10/17 0650 04/10/17 0650 Results 24 hrs Laboratory Tests Test 04/10/17 06:50 White Blood Count 25.9 #H Red Blood Count 2.47 L Hemoglobin 7.6 L Hematocrit 23.4 L Mean Corpuscular Volume 94.7 Mean Corpuscular Hemoglobin 30.8 Mean Corpuscular Hemoglobin Concent 32.5 Red Cell Distribution Width 21.7 H Platelet Count 319 Mean Platelet Volume 10.5 H Neutrophils % 92.0 H Band Neutrophils % 1.0 Lymphocytes % 2.0 L Monocytes % 5.0 Neutrophils # 23.8 H Lymphocytes # 0.5 L Monocytes # 1.3 H Polychromasia Hypochromasia 1+ Macrocytosis 1+ Sodium Level 140 Potassium Level 3.7 Chloride Level 102 Carbon Dioxide Level 27 Anion Gap 15 Blood Urea Nitrogen 26 H Creatinine 0.66 Glucose Level 134 Calcium Level 8.4 Medications Medications Current Medications Ondansetron HCl (Zofran Inj) 4 mg Q6H PRN IV NAUSEA AND/OR VOMITING; Start at 19:30 Acetaminophen (Tylenol Tab) 650 mg Q6H PRN PO PAIN LEVEL 1-3 OR FEVER; Start at 19:30 Docusate Sodium (Colace) 100 mg Q12H PRN PO CONSTIPATION; Start 03/30/17 at 19: 30 Magnesium Hydroxide (Milk Of Mag) 30 ml DAILY PRN PO CONSTIPATION; Start at 19:30 Sodium Biphosphate/ Sodium Phosphate (Fleet Enema) 133 ml DAILY PRN [place] CONSTIPATION; Start 03/30/17 at 19:30 Pantoprazole 40 mg 40 mg DAILY@06 IV Last administered on 04/10/17 06:04; Admin Dose 40 MG; Start 03/31/17 at 06:00 Piperacillin Sod/ Tazobactam Sod (Zosyn 3.375gm/ 100 ml (Pmx)) 100 ml @ 200 mls /hr Q6 IVPB Last administered on 04/10/17 12:52; Admin Dose 200 MLS/HR; Start 03/31/17 at 00:00 Vancomycin HCl (Vanco Iv Per Pharmacy) VANCOMYCIN PER PHARMACY NOTE XX ; Start 03/30/17 at 19:30 Hydralazine HCl (Apresoline) 10 mg Q6H PRN IV ELEVATED BLOOD PRESSURE; Start at 19:30 Nitroglycerin (Nitroglycerin (Sl Tab) 0.4 Mg) 1 tab Q5M PRN SL ANGINA; Start at 19:30 Hydromorphone HCl MG/HR CONTINUOUS R... Q4PCA IV Last administered on 15:09; Admin Dose 6 MG; Start 03/31/17 at 13:30 Vancomycin HCl/ Sodium Chloride (Vancocin/NS) 150 ml @ 75 mls/hr Q12H IVPB Last administered on 04/10/17 14:30; Admin Dose 75 MLS/HR; Start 04/04/17 at 15 :00 Potassium Chloride (Klor-Con 10) 10 meq BID PO Last administered on 04/10/17 09:06; Admin Dose 10 MEQ; Start 04/07/17 at 21:00 Escitalopram Oxalate (Lexapro) 20 mg DAILY PO ; Start 04/11/17 at 09:00 Methylprednisolone Sodium Succinate (Solu-Medrol) 60 mg AM IV ; Start 04/11/17 at 09:00 Miscellaneous Information (*Rx Drug Level Order Reminder*) VANCOMYCIN TROUGH LEVEL... ONCE ONCE XX ; Start 04/11/17 at 02:00; Stop 04/11/17 at 02:01 BRAD PRADO MD April 10, 2017 16:39
--- NOTE | 2017-04-10 18:13 | PN ---
Date/Time of Note Date/Time of Note DATE: 04/10/17 TIME: 18:09 Assessment/Plan Lines/Catheters IV Catheter Type (from Nrsg): Saline Lock Andrews in Place (from Nrsg): No Assessment/Plan Assessment/Plan [facility] Progress Note Date of Service: 04/10/17 Today's Impression & Plan: Overall stable. S/p placement of left biliary drain which traverses patient's anastomosis on that side. Right system has a tight anastomosis that could not be traversed (Much appreciate Dr. Grijalva's expertise). Currently adequately drained and awaiting further clinical improvement prior to start of further therapy for the cholangiocarcinoma. Discussed and reviewed again for patent's son and another friend. With above assessment, I've recommended the following for today: 1. Continued aggressive medical management with broad spec antimicrobials for the next few days 2. Aggressive nutritional support with increased oral intake. 3. Labs in am 4. Drains to gravity drainage 5. Maximize antidepressants 6. Continued supportive care management 7. Continue Toradol for back pain Thank you again for your great care of this very pleasant patient and wonderful family. If there are any questions, please feel free to call me at [phone]. TOTAL VISIT TIME: 20 minutes of which more than half was spent in [id number] discussion with the patient, possibly including family, as well as coordination of care between multiple physicians and providers. Disclaimer: Inadvertent spelling or grammatical errors are likely due to EHR/ dictation software use and do not reflect on the overall quality of patient care. Updated clinical summary: A very pleasant 61-year-old gentleman with significant past medical history including ulcerative colitis status post total proctocolectomy and ileoanal pouch as well as a number of other medical issues who was diagnosed with cholangiocarcinoma and underwent a radical bile duct resection that included extrahepatic bile duct and gallbladder at [facility], 2016, with final diagnosis of cholangiocarcinoma with 1/8 lymph node positive disease as well as low-grade dysplasia and carcinoma in situ at the proximal margin. The patient was readmitted to [facility] after a 2 month hospital stay at [facility] with increasing weakness, jaundice, and diffuse body pain. S/p perc drainage of right biliary system 04/03/17. : s/p placement of left biliary drain which traverses patient's anastomosis on that side. Right system has a tight anastomosis that could not be traversed. COMORBIDITIES: 1. History of ulcerative colitis status post total proctocolectomy and ileoanal pouch. 2. Diagnosis of primary sclerosing cholangitis since 2008 being cared for at various institutions such as [facility] and by various physicians with involvement of Dr. Krystian Adkins for hepatology. 3. History of hospitalization at [facility] for bile duct obstruction from mid December to early March with bile duct excision with cholecystectomy with removal of extrahepatic bile duct and Isabell-en-Y hepaticojejunostomy on 07/2017 with the above-mentioned pathology. 4. Chronic back pain, mainly lower, for the last 5 to 6 years. 5. Significant weight loss of more than 20 to 30 pounds over the last 6 months. 6. No history of lymphoma (note that this was reported erroneously in the patient's chart. The patient does not report any history of lymphoma in the past and that is also corroborated by the patient's family). 7. Status post multiple ERCPs and stenting in the past since 2005. 8. Elevated alpha fetoprotein 1.8 in 12/2016. 9. Elevated CA19-9 of 272.9 in 12/2016. 10. Normal CEA at 1.6 on 01/14/2017. 11. Status post sigmoidoscopy, 01/16/2017, showing moderate pouchitis and negative for dysplasia or malignancy. 12. S/p perc drainage of right biliary system 04/03/17. 13. 04/09/17: s/p placement of left biliary drain which traverses patient's anastomosis on that side. Right system has a tight anastomosis that could not be traversed. Subjective: No major events or complaints; no major abd pain and under control with medications; sprained back improved with Toradol; no n/v/d; no sob or cp; + flatus; + BM and normal for him; minimal activity; feels depressed, fatigued and weak. Objective: Vitals: See below Exam: GENERAL: On exam, the patient was laying in bed and appeared to be comfortable and in no acute distress. ABDOMEN: Soft, nontender and nondistended. Incisions are clean, dry and intact without any evidence of erythema, edema, discharge, or hernia. R biliary drain with less purulent fluid and trending toward more bilious output, although still serosanguineous, in the bag. L biliary drain with purulent fluid. There are no peritoneal signs or guarding. SKIN: Skin appears to be jaundiced and feels warm to touch. NEUROLOGIC: Patient was sleeping, but easily awake and remained alert, and followed commands appropriately. Exam/Review of Systems Vital Signs Vitals Vital Signs Date Time Temp Pulse Resp B/P Pulse Ox O2 Delivery O2 Flow Rate FiO2 04/10/17 16:20 47 04/10/17 15:40 98.4 18 100/59 94 04/09/17 17:58 Room Air Intake and Output 04/09/17 04/09/17 04/10/17 15:00 23:00 07:00 Intake Total 600 ml 150 ml 100 ml Output Total 490 ml 2 ml 55 ml Balance 110 ml 148 ml 45 ml Results Result Diagram: 04/10/17 0650 04/10/17 0650 ZOE GOYAL M.D. April 10, 2017 18:13
--- NOTE | 2017-04-10 18:32 | CONS ---
Date/Time of Note Date/Time of Note DATE: 04/10/17 TIME: 18:30 Assessment/Plan Assessment/Plan Chief Complaint/Hosp Course A/P 1. 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 postop , NOW WITH Metastatic dis in the liver lobular area of elevated T2 signal is seen in the central liver worrisome for a mass possibly cholangiocarcinoma and this causes prominent intrahepatic biliary ductal dilatation of both the left and right intrahepatic biliary ducts with central loss of signal at the area of the mass. CT and MRI- REVIEWED TUMOR MARKERS : ca 19-9 [id number] , ? 2 to tumor progression hepatobiliary consult noted- D/W Kt TRAORE POST drain placement in the right lobe of the liver- c/w abscess POST stenting across the anastomosis with IR. PTBD LFT - noted, still with obstructive pattern 2. Obstructive jaundice. Stable, ro stricture/recurrent tumor. MRCP/GI eval, hepatobiliary surgery consult- REVIEWED surgical f-up Dr Anderson noted POST biliary drainage by interventional radiology 3. Chronic Crohn's disease status post total proctocolectomy with J-pouch creation 2005. 4. Chronic primary sclerosing cholangitis w cholangiocarcinoma. Needs advanced care planning evaluated. Poor prognosis. Performance status questionable at this time for chemotherapy & bilirubin needs some improvement. 5. Malnutrition; oral feeds/Megace vs TPN 6. Active pouchitis? 7. Postop day 16 bd excision w cholecystectomy, excision of extrahepatic cbd and Isabell-en-Y hepaticojejunostomy. 8. Failure to thrive, may need snf 9. Anemia- WILL TRANSFUSE PRBC TODAY 10. Reactive thrombocytosis 11. Dyslipidemia. Problems: Consultation Date/Type/Reason Admit Date/Time March 30, 2017 at 18:53 Initial Consult Date 03/31/17 [facility]erring Provider: HUMZA JAIME MD 24 HR Interval Summary Free Text/Dictation all noted post PTBD DRAIN IS WORKING WEAK Exam/Review of Systems Vital Signs Vitals Vital Signs Date Time Temp Pulse Resp B/P Pulse Ox O2 Delivery O2 Flow Rate FiO2 04/10/17 16:20 47 04/10/17 15:40 98.4 18 100/59 94 04/09/17 17:58 Room Air Intake and Output 04/09/17 04/09/17 04/10/17 15:00 23:00 07:00 Intake Total 600 ml 150 ml 100 ml Output Total 490 ml 2 ml 55 ml Balance 110 ml 148 ml 45 ml Exam Constitutional: alert, oriented Head: normocephalic Respiratory: normal air movement Cardiovascular: regular rate and rhythm Gastrointestinal: non-tender, other (Noted with right flank drain), soft Extremities: No edema Neurological: nl mental status, nl speech Results Result Diagram: 04/10/17 0650 04/10/17 0650 Results 24 hrs Laboratory Tests Test 04/10/17 06:50 White Blood Count 25.9 #H Red Blood Count 2.47 L Hemoglobin 7.6 L Hematocrit 23.4 L Mean Corpuscular Volume 94.7 Mean Corpuscular Hemoglobin 30.8 Mean Corpuscular Hemoglobin Concent 32.5 Red Cell Distribution Width 21.7 H Platelet Count 319 Mean Platelet Volume 10.5 H Neutrophils % 92.0 H Band Neutrophils % 1.0 Lymphocytes % 2.0 L Monocytes % 5.0 Neutrophils # 23.8 H Lymphocytes # 0.5 L Monocytes # 1.3 H Polychromasia Hypochromasia 1+ Macrocytosis 1+ Sodium Level 140 Potassium Level 3.7 Chloride Level 102 Carbon Dioxide Level 27 Anion Gap 15 Blood Urea Nitrogen 26 H Creatinine 0.66 Glucose Level 134 Calcium Level 8.4 Medications Medications Current Medications Ondansetron HCl (Zofran Inj) 4 mg Q6H PRN IV NAUSEA AND/OR VOMITING; Start at 19:30 Acetaminophen (Tylenol Tab) 650 mg Q6H PRN PO PAIN LEVEL 1-3 OR FEVER; Start at 19:30 Docusate Sodium (Colace) 100 mg Q12H PRN PO CONSTIPATION; Start 03/30/17 at 19: 30 Magnesium Hydroxide (Milk Of Mag) 30 ml DAILY PRN PO CONSTIPATION; Start at 19:30 Sodium Biphosphate/ Sodium Phosphate (Fleet Enema) 133 ml DAILY PRN [place] CONSTIPATION; Start 03/30/17 at 19:30 Pantoprazole 40 mg 40 mg DAILY@06 IV Last administered on 04/10/17 06:04; Admin Dose 40 MG; Start 03/31/17 at 06:00 Piperacillin Sod/ Tazobactam Sod (Zosyn 3.375gm/ 100 ml (Pmx)) 100 ml @ 200 mls /hr Q6 IVPB Last administered on 04/10/17 12:52; Admin Dose 200 MLS/HR; Start 03/31/17 at 00:00 Vancomycin HCl (Vanco Iv Per Pharmacy) VANCOMYCIN PER PHARMACY NOTE XX ; Start 03/30/17 at 19:30 Hydralazine HCl (Apresoline) 10 mg Q6H PRN IV ELEVATED BLOOD PRESSURE; Start at 19:30 Nitroglycerin (Nitroglycerin (Sl Tab) 0.4 Mg) 1 tab Q5M PRN SL ANGINA; Start at 19:30 Hydromorphone HCl MG/HR CONTINUOUS R... Q4PCA IV Last administered on 15:09; Admin Dose 6 MG; Start 03/31/17 at 13:30 Vancomycin HCl/ Sodium Chloride (Vancocin/NS) 150 ml @ 75 mls/hr Q12H IVPB Last administered on 04/10/17 14:30; Admin Dose 75 MLS/HR; Start 04/04/17 at 15 :00 Potassium Chloride (Klor-Con 10) 10 meq BID PO Last administered on 04/10/17 09:06; Admin Dose 10 MEQ; Start 04/07/17 at 21:00 Escitalopram Oxalate (Lexapro) 20 mg DAILY PO ; Start 04/11/17 at 09:00 Methylprednisolone Sodium Succinate (Solu-Medrol) 60 mg AM IV ; Start 04/11/17 at 09:00 Miscellaneous Information (*Rx Drug Level Order Reminder*) VANCOMYCIN TROUGH LEVEL... ONCE ONCE XX ; Start 04/11/17 at 02:00; Stop 04/11/17 at 02:01 KIN ESTEBAN MD April 10, 2017 18:32
[2017-04-11] VITALS (14 sets, daily range): BP systolic 102–126; BP diastolic 64–70; PULSE 35–58; RESP 17–20
--- NOTE | 2017-04-11 00:49 | CONS ---
DATE OF ADMISSION: 03/30/2017 DATE OF CONSULTATION: 04/10/2017 TYPE OF CONSULTATION: Infectious Disease. REASON FOR CONSULTATION: Antibiotic management. HISTORY OF PRESENT ILLNESS: The patient is a 61-year-old male, who has primary sclerosing cholangit is, stage IV lymphoma, and presented with generalized weakness, weight loss, decreased appetite. He has had abdominal surgery, jejunostomy, and jejunal pouch surgery at the outside hospital. He has lack of energy. On admission, CT scan showed extensive postsurgical changes involving bowel loops t hroughout the abdominopelvic cavity including the right upper quadrant, small bowel, and distal sigm oid colon and rectum. There is significant intrahepatic biliary dilatation with increased density i n the central periportal region of the liver. Per radiology, infiltrating mass lesion should be con sidered. On admission, his white count was 20.7, H and H of 9.2 and 27.9, platelet count 745,000. BUN and creatinine 13/0.64. Patient was seen by numerous consultants including Dr. Batres of GI and Dr. Anderson for surgery. He had placement of a catheter; a percutaneous biliary drainage catheter p eduardaement, on 04/05/[address] Talat Grijalva, interventional radiology. He was seen by Dr. Bee on oncology consultation. The patient has metastatic cholangiocarcinoma to lymph node postop, now w ith metastatic disease in the liver. He had drain placement to the right lower lobe of liver, consi stent with abscess, for possible stenting across the anastomosis. On 04/09, he had biliary catheter placement again. He has jaundice, weight loss, hyponatremia, primary sclerosing cholangitis. Curr ently, the patient has a left biliary drain which traverses his anastomosis on that side. Right paige e has a tight anastomosis that could not be traversed. Of note, is the fact he has a significant hi story of ulcerative colitis status post total proctocolectomy and ilioinguinal pouch, as well as a n umber of other medical issues. He was diagnosed with cholangiocarcinoma and underwent radical bile duct resection. It included extrahepatic bile duct and gallbladder at [facility] on 017. Final diagnosis of cholangiocarcinoma with 1/8 lymph nodes positive, low-grade dysplasia, and carcinoma in situ. At this point in time it is reported he has pus coming from the surgical site wh ere the drain is, noted with gram-negative rods. He also has leukocytosis. LABORATORY: Today, white count is 25.9, H and H is 7.6 and 23.4, platelet count 319,000. BUN and c reatinine are 26/0.66. Microbiology: He has gram-negative rods. He also has pneumoniae sens itive to virtually everything resistance to cefazolin. He has Bacteroides fragilis from the gallbla dder fluid from 04/04/2017. He is currently on vancomycin and he is on Zosyn. PAST MEDICAL HISTORY: Operations as outlined. FAMILY HISTORY: Noncontributory. SOCIAL HISTORY: Does not smoke, drink or abuse drugs. ALLERGIES: None to penicillin, sulfa, or foods. MEDICATIONS: Per chart. REVIEW OF SYSTEMS: Noncontributory. PHYSICAL EXAMINATION: GENERAL: The patient is a chronically ill-appearing male, who is awake, responsive, in no acute dis tress. SKIN: He has jaundice. HEENT: Within normal limits. NECK: Supple. LYMPH NODES: None palpable. CHEST: Decreased breath sounds at the bases. HEART: Without murmur or gallop. ABDOMEN: Soft and nontender. He has a drain placed on the right side. He has some type of jejunal pouch as well, and he has some drainage around the biliary drain. EXTREMITIES: Without cyanosis, clubbing, or edema. RECTAL AND GENITAL: Deferred. NEUROLOGIC: No focal neurological abnormality. IMPRESSION AND PLAN: Continue patient on vancomycin and Zosyn. We will await the culture reports. We may want to put him on imipenem. I will dictate my findings to the hospitalist and the aforemen tioned physicians. Dictated By: BRITTNEY EDOUARD MD, JD/JASMYNE Conf#: [id number] DID#: [id number]
[2017-04-11] MEDS ORDERED: VANCOMYCIN 1 GM in NS 250 ML IVPB SCH (03:00)
[2017-04-11] MEDS: PIPER-TAZO 3.375 GM IV (PMX) 100 ML IVPB SCH ×3 (06:00→17:15)
[2017-04-11] MEDS: PANTOPRAZOLE 40 MG INJ IV SCH (06:00)
--- NOTE | 2017-04-11 08:33 | RADRPT ---
PROCEDURE: CT lumbar spine without contrast. CLINICAL INDICATION: Back pain, evaluate for mets TECHNIQUE: CT of the lumbar spine without contrast was performed on a multidetector CT scanner, wi th multiplanar reformats. One or more of the following dose reduction techniques were used: Automat ed exposure control, adjustment in mA and / or kV according to patient size, use of iterative recons tructive technique. CTDIvol = 21 mGy and DLP = 563 mGy-cm. COMPARISON: CT abdomen pelvis 03/30/2017 FINDINGS: There is generalized osteopenia. There has been interval development of a mild compression fracture of the L2 vertebral body. There is no retropulsion. No suspicious osseous lesions are seen. The rest of the vertebral bodies are maintained in height. There is preservation of the lordosis of the lumbar spine. There is mild dextroconvex lumbar scoliosis. Mild multilevel anterior spondylosis i s seen. The intervertebral disk spaces are maintained in height. There is congenital / development al narrowing of the lumbar spinal canal. T12-L1: No disk bulge or herniation is seen. No acquired central canal stenosis or foraminal narrow ing is identified. L1-L2: There is mild posterior disk bulging. There is mild facet arthropathy. No significant acqui red central canal stenosis is identified. There is mild bilateral foraminal narrowing. L2-L3: There is mild posterior disk bulging. There is mild facet arthropathy. No significant acqui red central canal stenosis is identified. There is mild left foraminal narrowing. L3-L4: There is posterior disk bulging. There is mild facet arthropathy. No significant acquired c entral canal stenosis is identified. There is mild-moderate left foraminal narrowing. L4-L5: There is posterior disk bulging. There is mild facet arthropathy. No significant acquired c entral canal stenosis is identified. There is mild right and mild-moderate left foraminal narrowing . L5-S1: There is posterior disk bulging. There is mild facet arthropathy. No significant acquired c entral canal stenosis or foraminal narrowing is identified. IMPRESSION: 1. Osteopenia, with mild L2 compression fracture new since prior CT from 03/30/2017. 2. No suspicious osseous lesions seen to suggest metastatic disease. 3. Mild lumbar spondylosis without significant acquired central canal stenosis. Multilevel foramin al narrowing detailed above. 4. Congenital / developmental narrowing of the lumbar spinal canal. 5. Mild dextroconvex lumbar scoliosis. RPTAT: VV .Leif Gonzalez MD, Date Time Electronically viewed and signed by .Leif Gonzalez MD, on 04/11/2017 08:32 .O/
--- NOTE | 2017-04-11 08:51 | PN ---
DATE: 04/11/2017 CARDIOLOGY FOLLOWUP PROGRESS NOTE SUBJECTIVE: No new cardiac event. No reported chest pain or pressure. No syncope, no presyncope. General weakness still persists. The patient has been complaining of pain that has been controlled on the BRANCH OPERATION EVALUATION MANAGER. MEDICATIONS: Reviewed. PHYSICAL EXAMINATION: VITAL SIGNS: Temperature 98.2, heart rate of 40, blood pressure of 112/64, respiratory rate of 17, saturating 98%. GENERAL: Thin, cachectic gentleman. No acute distress. HEENT: Normocephalic, atraumatic. CARDIOVASCULAR: Bradycardia. PULMONARY: No wheezes. GASTROINTESTINAL: Soft, mild tenderness to palpation. EXTREMITIES: With no significant lower extremity edema. NEUROLOGIC: Awake and alert. PSYCHIATRIC: Appears to be anxious, otherwise stable. LABORATORY: WBC of 25.9, hemoglobin 7.6, platelets 319. ASSESSMENT AND PLAN: 1. Sick-sinus syndrome, marked sinus bradycardia, currently does not appear to be causing any signi ficant symptoms and on conservative therapy. 2. Metastatic cholangiocarcinoma to lymph node and also to the liver. 3. Postop cholecystectomy and excision of the extrahepatic common bile duct, Isabell-en-Y hepatojejuno stomy. 4. History of Crohn disease. 5. History of sclerosing cholangitis and cholangiocarcinoma. 6. History of depression 7. Failure to thrive. 8. Thrombocytopenia. 9. Malnutrition. RECOMMENDATIONS: We will continue with the nutritional support. Continue conservative therapy, pal liative care, and follow up with ID, hematology/oncology, and surgery recommendations. Follow up [facility] palliative care recommendations. Dictated By: POOJA BISHOP/JASMYNE Conf#: [id number] DID#: [id number] CC: ;*EndCC*
[2017-04-11] MEDS: ESCITALOPRAM 10 MG TAB PO SCH (09:21)
[2017-04-11] MEDS: METHYLPREDNISOLONE 125 MG INJ IV SCH (09:21)
[2017-04-11] MEDS: POTASSIUM CHLORIDE (SR) 10 MEQ TAB PO SCH ×2 (09:21→21:25)
--- NOTE | 2017-04-11 10:10 | PN ---
DATE: 04/11/2017 PAIN MANAGEMENT FOLLOWUP NOTE SUBJECTIVE: Mr. Son is still complaining of low back pain, primarily when he is transferred or ro lled. At rest he has some discomfort, but increasing severity with positional changes. He is curren tly taking SENIOR LOAN OFFICER 0.1 mg lockout every [address] scan results ordered by myself yesterday, please refer to report and read out by Dr. Leif Hernandez MD, essentially shows osteopenia, and mild L2 compre ssion fracture which is new since prior CT of March 30. There is no suspicious osseous lesions in divya tion. Spondylosis, congenital development of narrowing of the lumbar spinal canal and mild dextrocon vex of lumbar scoliosis. OBJECTIVE: VITAL SIGNS: Blood pressure 119/70, pulse of 45 and regular, respirations 19, temperature of 98.1 d egrees. HEENT: Normocephalic and atraumatic. Anicteric and acyanotic on examination. Affect is generally positive. NEUROLOGICAL: He is oriented x3. Cranial nerves II through XII are grossly intact. Motor and sens ory findings grossly within normal limits. ASSESSMENT AND PLAN: Pain level was described as 5, with transfer it is 10. Pain is alleviated with SENIOR LOAN OFFICER. Pain is clinically significant. Physical function is impaired secondary to underlying maligna ncy primarily and malnutrition and pain. I did speak to patient's sister last evening and explained to her the underlying etiology of his lumbosacral spine pain and what we are doing to try to contro l that at this time. The trade off, as I understand, in speaking to her and to patient, that we can increase his pain medications and he may have some sedation associated with it. He seems to not unde rstand sedation with pain or pain with sedation, but this has been explained to him once again. He d enies nausea, vomiting, constipation, pruritus. There is no evidence of mental cloudiness, sweating , drowsiness. Overall severity of his symptoms are mild to moderate. PLAN: To continue on the same course of therapy. There is no indications, especially in this gentlem an with an underlying malignancy of any invasive procedures. I have explained to him my rationale i n detail. Epidural blocks are contraindicated also, anti-inflammatory medications would be contraind icated secondary to his widely metastatic underlying malignancy. We will continue with current lynne tment. Dictated By: SAVANAH DUBOSE MD, LP/JASMYNE Conf#: [id number] DID#: [id number]
[2017-04-11] MEDS: HYDROmorphONE 0.2 MG/ML PCA IV SCH (10:39)
[2017-04-11 14:21] LABS: ADD SCAN DIFF NO
[2017-04-11 14:24] LABS: ABNORMAL IP MESSAGE 1; BASOPHILS % 0.2 % (0.0-2.0); EOSINOPHILS % 0.1 % (0.0-7.0); HEMATOCRIT 27.5 % (42.0-52.0); HEMOGLOBIN 8.9 g/dl (14.0-18.0); LYMPHOCYTES # 0.3 10^3/ul (0.8-2.9); LYMPHOCYTES % 1.4 % (15.0-51.0); MEAN CORPUSCULAR HEMOGLOBIN 30.6 pg (29.0-33.0); MEAN CORPUSCULAR HGB CONC 32.4 g/dl (32.0-37.0); MEAN CORPUSCULAR VOLUME 94.5 fl (82.0-101.0); MEAN PLATELET VOLUME 10.7 fl (7.4-10.4); MONOCYTE # 0.5 10^3/ul (0.3-0.9); MONOCYTES % 2.8 % (0.0-11.0); NEUTROPHIL # 18.1 10^3/ul (1.6-7.5); NEUTROPHILS % 94.7 % (39.0-77.0); PLATELET COUNT 287 10^3/UL (140-415); RED BLOOD COUNT 2.91 10^6/ul (4.70-6.10); RED CELL DISTRIBUTION WIDTH 20.8 % (11.5-14.5); WHITE BLOOD COUNT 19.1 10^3/ul (4.8-10.8)
[2017-04-11 14:37] LABS: POTASSIUM 3.8 mmol/L (3.5-5.1)
--- NOTE | 2017-04-11 14:38 | PN ---
Date/Time of Note Date/Time of Note DATE: 04/11/17 TIME: 14:35 Assessment/Plan VTE Prophylaxis VTE Prophylaxis Intervention: SCD's Lines/Catheters IV [facility]from [facility]): Peripheral IV Urinary Cath still in place: No Assessment/Plan Chief Complaint/Hosp Course 1. 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 Patient postop cholecystectomy and excision of extrahepatic CBD and Isabell-en-Y hepaticojejunostomy. Continue with analgesics. Surgeon following. s/p IR intervention on April 09, 2017. cont wound care 2. History of chronic Crohn's disease status post proximal colectomy with J- pouch creation in 2005. Continue GI recommendations. 3. 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 Oncologist following. Further management for consideration of possible chemotherapy/radiation per oncologist. Unstable for chemo/radiation at this time 4. bradycardia. Asymptomatic present. Continue telemetry monitoring. 5. History of depression. Patient to be continued on Lexapro medication. no reports of suicidal ideation during visit 6. Noted failure to thrive. Encourage oral intake. 7. thromboycytopenia. Monitor for signs or symptoms of bleeding. 8. Lumbar fracture (L2). As evidenced per CT scan of the lumbar spine. Discussed with Dr. Michael Ward, plan for placement of C.A.S.H. brace Disposition and plan: noted with new L2 fracture. Will obtain C.A.S.H. brace as discussed with orthopedic surgeon Discussed plan of care with Dr. Sanz Problems: Subjective 24 Hr Interval Summary Free Text/Dictation Still reports having some low back pain. No other specific complaints. Family at bedside. Exam/Review of Systems Vital Signs Vitals Vital Signs Date Time Temp Pulse Resp B/P Pulse Ox O2 Delivery O2 Flow Rate FiO2 04/11/17 12:02 98.0 52 19 114/66 96 04/11/17 00:00 Room Air Intake and Output 04/10/17 04/10/17 04/11/17 15:00 23:00 07:00 Intake Total 800 ml 1200 ml Output Total 70 ml 45 ml Balance 730 ml 1155 ml Exam Constitutional: alert, frail, oriented, REPORTS BACK PAIN Psych: depression Neck: No jvd Respiratory: clear to auscultation, normal air movement Cardiovascular: regular rate and rhythm Gastrointestinal: other (right flank drainage bag x2 ), soft, tender Musculoskeletal: No nl gait and stance Neurological: TIE IN HAND II-XII intact, nl mental status, nl speech Results Result Diagram: 04/10/17 0650 04/10/17 0650 Results 24 hrs Laboratory Tests Test 04/11/17 01:50 Vancomycin Level Trough 8.7 L Medications Medications Current Medications Ondansetron HCl (Zofran Inj) 4 mg Q6H PRN IV NAUSEA AND/OR VOMITING; Start at 19:30 Acetaminophen (Tylenol Tab) 650 mg Q6H PRN PO PAIN LEVEL 1-3 OR FEVER; Start at 19:30 Docusate Sodium (Colace) 100 mg Q12H PRN PO CONSTIPATION; Start 03/30/17 at 19: 30 Magnesium Hydroxide (Milk Of Mag) 30 ml DAILY PRN PO CONSTIPATION; Start at 19:30 Sodium Biphosphate/ Sodium Phosphate (Fleet Enema) 133 ml DAILY PRN [place] CONSTIPATION; Start 03/30/17 at 19:30 Pantoprazole 40 mg 40 mg DAILY@06 IV Last administered on 04/11/17 06:00; Admin Dose 40 MG; Start 03/31/17 at 06:00 Piperacillin Sod/ Tazobactam Sod (Zosyn 3.375gm/ 100 ml (Pmx)) 100 ml @ 200 mls /hr Q6 IVPB Last administered on 04/11/17 11:38; Admin Dose 200 MLS/HR; Start 03/31/17 at 00:00 Hydralazine HCl (Apresoline) 10 mg Q6H PRN IV ELEVATED BLOOD PRESSURE; Start at 19:30 Nitroglycerin (Nitroglycerin (Sl Tab) 0.4 Mg) 1 tab Q5M PRN SL ANGINA; Start at 19:30 Hydromorphone HCl (Dilaudid LASER PRINT OPERATOR) MG/HR CONTINUOUS R... Q4PCA IV Last administered on 04/11/17 10:39; Admin Dose 6 MG; Start 03/31/17 at 13:30 Potassium Chloride (Klor-Con 10) 10 meq BID PO Last administered on 04/11/17 09:21; Admin Dose 10 MEQ; Start 04/07/17 at 21:00 Escitalopram Oxalate (Lexapro) 20 mg DAILY PO Last administered on 04/11/17 09 :21; Admin Dose 20 MG; Start 04/11/17 at 09:00 Methylprednisolone Sodium Succinate (Solu-Medrol) 60 mg AM IV Last administered on 04/11/17 09:21; Admin Dose 60 MG; Start 04/11/17 at 09:00 CANDIS MARIE April 11, 2017 14:38
[2017-04-11 14:39] LABS: CREATININE 0.58 mg/dl (0.61-1.24)
[2017-04-11 14:40] LABS: CALCIUM 8.3 mg/dl (8.4-10.2)
--- NOTE | 2017-04-11 14:55 | PN ---
DATE: 04/11/2017 SUBJECTIVE: No acute changes. The patient is alert, complaining of leakage around his right upper abdominal catheter. He is in no distress and afebrile. WBC yesterday was 25.9. No labs this morning. MICROBIOLOGY: Fluid culture growing Bacteroides fragilis and Klebsiella pneumoniae susceptible essentially to all antibiotics. Stool for C. diff came back negative. Blood cultures have been negative since admission. ANTIMICROBIALS: The patient was started on vancomycin and Zosyn. He is also on Solu-Medrol 60 mg daily. PHYSICAL EXAMINATION: GENERAL: This is a cachectic elderly man who is alert, in no distress. HEENT: Head atraumatic, normocephalic. Sclerae anicteric. Buccal mucosa dry. NECK: Supple. CHEST: Rise symmetrical. Breath sounds clear. HEART: S1, S2. ABDOMEN: Soft. Bowel sounds present. The patient has 2 drainages, one in the middle and one on the right with greenish drainage in the bag. EXTREMITIES: No cyanosis, edema. ASSESSMENT: 1. Systemic inflammatory response syndrome secondary to intraabdominal infection and possibly secondary to steroids. 2. Biliary obstruction status post fluoroscopic-guided biliary drainage catheter placement on 04/09/2014 with culture growing Klebsiella pneumoniae and Bacteroides fragilis. 3. History of ulcerative colitis status post total proctocolectomy and ileoanal pouch. 4. History of primary sclerosing cholangitis since 2008. 5. Metastatic cholangiocarcinoma to lymph nodes and liver. 6. Cachexia. PLAN: The patient remains clinically stable. We are going to discontinue vancomycin, keep him on Zosyn as it will cover Bacteroides and Klebsiella that he is growing from his fluid We will order a chest x-ray to make sure he does not have pneumonia. The patient is being followed by surgery and oncology. We will follow their recommendations. Dictated By: DEBRA GILL OPEN HEARTH FURNACE OPERATOR HELPER for BRITTNEY LEMA/JASMYNE Conf#: [id number] DID#: [id number] HERB
--- NOTE | 2017-04-11 15:28 | PN ---
Date/Time of Note Date/Time of Note DATE: 04/11/17 TIME: 15:17 Assessment/Plan Lines/Catheters IV Catheter Type (from Nrs): Peripheral IV Andrews in Place (from Nrs): No Assessment/Plan Assessment/Plan [facility] Progress Note Date of Service: 04/11/17 Today's Impression & Plan: Overall stable. Leak from R side around tube likely will improve with a tube check/? upsizing (d/w Dr. Grijalva and will put orders in); compression fracture of the back is unfortunate, but likely can be managed non-operatively; may need ortho/neurosurgery consult; left biliary drain in good working condition; WBC rise noted and expected; patient not septic; will need 2-3 weeks of medical stability to establish patient's baseline (minus the cholangitis) and then decide on how aggressively to treat the rest of the cholangiocarcinoma. Discussed and reviewed with maribell and her sister. With above assessment, I've recommended the following for today: 1. Continued aggressive medical management with broad spec antimicrobials for the next few days 2. Aggressive nutritional support with increased oral intake. 3. Labs in am 4. Drains to gravity drainage 5. Maximize antidepressants 6. Continued supportive care management 7. Continue Toradol for back pain 8. Consider spine consultation Thank you again for your great care of this very pleasant patient and wonderful family. If there are any questions, please feel free to call me at [phone]. TOTAL VISIT TIME: 20 minutes of which more than half was spent in [id number] discussion with the patient, possibly including family, as well as coordination of care between multiple physicians and providers. Disclaimer: Inadvertent spelling or grammatical errors are likely due to EHR/ dictation software use and do not reflect on the overall quality of patient care. Updated clinical summary: A very pleasant 61-year-old gentleman with significant past medical history including ulcerative colitis status post total proctocolectomy and ileoanal pouch as well as a number of other medical issues who was diagnosed with cholangiocarcinoma and underwent a radical bile duct resection that included extrahepatic bile duct and gallbladder at [facility], 2016, with final diagnosis of cholangiocarcinoma with 1 lymph node positive disease as well as low-grade dysplasia and carcinoma in situ at the proximal margin. The patient was readmitted to [facility] after a 2 month hospital stay at [facility] with increasing weakness, jaundice, and diffuse body pain. S/p perc drainage of right biliary system 04/03/17. : s/p placement of left biliary drain which traverses patient's anastomosis on that side. Right system has a tight anastomosis that could not be traversed. COMORBIDITIES: 1. History of ulcerative colitis status post total proctocolectomy and ileoanal pouch. 2. Diagnosis of primary sclerosing cholangitis since 2008 being cared for at various institutions such as [facility] and by various physicians with involvement of Dr. Krystian Adkins for hepatology. 3. History of hospitalization at [facility] for bile duct obstruction from mid December to early March with bile duct excision with cholecystectomy with removal of extrahepatic bile duct and Isabell-en-Y hepaticojejunostomy on 07/2017 with the above-mentioned pathology. 4. Chronic back pain, mainly lower, for the last 5 to 6 years. 5. Significant weight loss of more than 20 to 30 pounds over the last 6 months. 6. No history of lymphoma (note that this was reported erroneously in the patient's chart. The patient does not report any history of lymphoma in the past and that is also corroborated by the patient's family). 7. Status post multiple ERCPs and stenting in the past since 2005. 8. Elevated alpha fetoprotein 1.8 in 12/2016. 9. Elevated CA19-9 of 272.9 in 12/2016. 10. Normal CEA at 1.6 on 01/14/2017. 11. Status post sigmoidoscopy, 01/16/2017, showing moderate pouchitis and negative for dysplasia or malignancy. 12. S/p perc drainage of right biliary system 04/03/17. 13. 04/09/17: s/p placement of left biliary drain which traverses patient's anastomosis on that side. Right system has a tight anastomosis that could not be traversed. 14. Compression fracture 04/10/17 Subjective: No major events or complaints; no major abd pain and under control with medications; no n/v/d; no sob or cp; + flatus; + BM and normal for him; minimal activity; feels depressed, fatigued and weak. Objective: Vitals: See below Exam: GENERAL: On exam, the patient was laying in bed and appeared to be comfortable and in no acute distress. ABDOMEN: Soft, nontender and nondistended. Incisions are clean, dry and intact without any evidence of erythema, edema, discharge, or hernia. R biliary drain with less purulent fluid and trending toward more bilious output, although still serosanguineous, in the bag. Mild leakage from right side around the tube. L biliary drain with purulent fluid and trending toward more bilious output. SKIN: Skin appears to be less jaundiced and feels warm to touch. NEUROLOGIC: Patient was awake, alert, and followed commands appropriately. Exam/Review of Systems Vital Signs Vitals Vital Signs Date Time Temp Pulse Resp B/P Pulse Ox O2 Delivery O2 Flow Rate FiO2 04/11/17 15:02 98.2 52 19 126/67 99 04/11/17 00:00 Room Air Intake and Output 04/10/17 04/10/17 04/11/17 15:00 23:00 07:00 Intake Total 800 ml 1200 ml Output Total 70 ml 45 ml Balance 730 ml 1155 ml Results Result Diagram: 04/11/17 1408 04/11/17 1408 ZOE GOYAL M.D. April 11, 2017 15:28
--- NOTE | 2017-04-11 16:04 | PN ---
Date/Time of Note Date/Time of Note DATE: 04/11/17 TIME: 16:02 Assessment/Plan VTE Prophylaxis VTE Prophylaxis Intervention: ambulation Lines/Catheters [facility] Peripheral IV Urinary Cath still in place: No Assessment/Plan Assessment/Plan Obstructive jaundice S/P PTBD 04/09/2017 S/P PTBD right biliary system 04/04/2017 S/P bile duct excision with cholecystectomy excision of extrahepatic duct,and Isabell en Y hepaticojejuniostomy sec to cholangiocarcinoma MRI 03/31/2017 There is a lobular area of elevated T2 signal is seen in the central liver worrisome for a mass possibly cholangiocarcinoma and this causes prominent intrahepatic biliary ductal dilatation of both the left and right intrahepatic biliary ducts with central loss of signal at the area of the mass. Prominent hepatomegaly is seen with findings suggestive for portal hypertension. Mild ascites is seen. Surgical changes are seen of the bowel with no evidence of an obstruction. There is a fecal filled colon * Hematochezia/Anemia * History of proctocolectomy with J pouch 2005 * History of sigmoidoscopy 01/2017 moderate pouchitis,no evidence of malignancy * Intractable pain Plan * Continue present management * pain control Subjective 24 Hr Interval Summary Free Text/Dictation * Course reviewed with RN * Patient seen and examined * Leaking PTBD drain Exam/Review of Systems Vital Signs Vitals Vital Signs Date Time Temp Pulse Resp B/P Pulse Ox O2 Delivery O2 Flow Rate FiO2 04/11/17 15:02 98.2 52 19 126/67 99 04/11/17 00:00 Room Air Intake and Output 04/10/17 04/10/17 04/11/17 15:00 23:00 07:00 Intake Total 800 ml 1200 ml Output Total 70 ml 45 ml Balance 730 ml 1155 ml Exam Constitutional: alert, frail Eyes: nl conjunctiva, nl sclera Neck: non-tender, supple Respiratory: clear to auscultation, normal air movement Cardiovascular: nl pulses, regular rate and rhythm Gastrointestinal: bowel sounds, other (ptbd drain), soft Musculoskeletal: nl extremities to inspection Extremities: normal pulses Results Result Diagram: 04/11/17 1408 04/11/17 1408 Results 24 hrs Laboratory Tests Test 04/11/17 01:50 04/11/17 14:08 Vancomycin Level Trough 8.7 L White Blood Count 19.1 #H Red Blood Count 2.91 L Hemoglobin 8.9 L Hematocrit 27.5 L Mean Corpuscular Volume 94.5 Mean Corpuscular Hemoglobin 30.6 Mean Corpuscular Hemoglobin Concent 32.4 Red Cell Distribution Width 20.8 H Platelet Count 287 Mean Platelet Volume 10.7 H Neutrophils % 94.7 H Lymphocytes % 1.4 L Monocytes % 2.8 Eosinophils % 0.1 Basophils % 0.2 Nucleated Red Blood Cells % 0.0 Neutrophils # 18.1 H Lymphocytes # 0.3 L Monocytes # 0.5 Eosinophils # 0.0 Basophils # 0.0 Nucleated Red Blood Cells # 0.0 Sodium Level 141 Potassium Level 3.8 Chloride Level 103 Carbon Dioxide Level 26 Anion Gap 16 Blood Urea Nitrogen 22 H Creatinine 0.58 L Glucose Level 158 Calcium Level 8.3 L Medications Medications Current Medications Ondansetron HCl (Zofran Inj) 4 mg Q6H PRN IV NAUSEA AND/OR VOMITING; Start at 19:30 Acetaminophen (Tylenol Tab) 650 mg Q6H PRN PO PAIN LEVEL 1-3 OR FEVER; Start at 19:30 Docusate Sodium (Colace) 100 mg Q12H PRN PO CONSTIPATION; Start 03/30/17 at 19: 30 Magnesium Hydroxide (Milk Of Mag) 30 ml DAILY PRN PO CONSTIPATION; Start at 19:30 Sodium Biphosphate/ Sodium Phosphate (Fleet Enema) 133 ml DAILY PRN [place] CONSTIPATION; Start 03/30/17 at 19:30 Pantoprazole 40 mg 40 mg DAILY@06 IV Last administered on 04/11/17 06:00; Admin Dose 40 MG; Start 03/31/17 at 06:00 Piperacillin Sod/ Tazobactam Sod (Zosyn 3.375gm/ 100 ml (Pmx)) 100 ml @ 200 mls /hr Q6 IVPB Last administered on 04/11/17 11:38; Admin Dose 200 MLS/HR; Start 03/31/17 at 00:00 Hydralazine HCl (Apresoline) 10 mg Q6H PRN IV ELEVATED BLOOD PRESSURE; Start at 19:30 Nitroglycerin (Nitroglycerin (Sl Tab) 0.4 Mg) 1 tab Q5M PRN SL ANGINA; Start at 19:30 Hydromorphone HCl (Dilaudid FLORAL CLERK) MG/HR CONTINUOUS R... Q4PCA IV Last administered on 04/11/17 10:39; Admin Dose 6 MG; Start 03/31/17 at 13:30 Potassium Chloride (Klor-Con 10) 10 meq BID PO Last administered on 04/11/17 09:21; Admin Dose 10 MEQ; Start 04/07/17 at 21:00 Escitalopram Oxalate (Lexapro) 20 mg DAILY PO Last administered on 04/11/17 09 :21; Admin Dose 20 MG; Start 04/11/17 at 09:00 Methylprednisolone Sodium Succinate (Solu-Medrol) 60 mg AM IV Last administered on 04/11/17 09:21; Admin Dose 60 MG; Start 04/11/17 at 09:00 Ketorolac Tromethamine (Toradol) 15 mg Q6H PRN IV PAIN; Start 04/11/17 at 15:30 ; Stop 04/14/17 at 15:29 BRAD PRADO MD April 11, 2017 16:04
--- NOTE | 2017-04-11 22:54 | CONS ---
Date/Time of Note Date/Time of Note DATE: 04/11/17 TIME: 22:53 Assessment/Plan Assessment/Plan Chief Complaint/Hosp Course A/P 1. 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 postop , NOW WITH Metastatic dis in the liver lobular area of elevated T2 signal is seen in the central liver worrisome for a mass possibly cholangiocarcinoma and this causes prominent intrahepatic biliary ductal dilatation of both the left and right intrahepatic biliary ducts with central loss of signal at the area of the mass. CT and MRI- REVIEWED TUMOR MARKERS : ca 19-9 1420 , ? 2 to tumor progression hepatobiliary consult noted- D/W Kt TRAORE POST drain placement in the right lobe of the liver- c/w abscess POST stenting across the anastomosis with IR. PTBD LFT - noted, still with obstructive pattern 2. Obstructive jaundice. Stable, ro stricture/recurrent tumor. MRCP/GI eval, hepatobiliary surgery consult- REVIEWED surgical f-up Dr Anderson noted POST biliary drainage by interventional radiology 3. Chronic Crohn's disease status post total proctocolectomy with J-pouch creation 2005. 4. Chronic primary sclerosing cholangitis w cholangiocarcinoma. Needs advanced care planning evaluated. Poor prognosis. Performance status questionable at this time for chemotherapy & bilirubin needs some improvement. 5. Malnutrition; oral feeds/Megace vs TPN 6. Active pouchitis? 7. Postop day 16 bd excision w cholecystectomy, excision of extrahepatic cbd and Isabell-en-Y hepaticojejunostomy. 8. Failure to thrive, may need snf 9. Anemia- WILL TRANSFUSE PRBC PRN 10. Reactive thrombocytosis 11. Dyslipidemia. Problems: Consultation Date/Type/Reason Admit Date/Time March 30, 2017 at 18:53 Initial Consult Date 03/31/17 Type of Consultation: [facility] Referring Provider: HUMZA JAIME MD 24 HR Interval Summary Free Text/Dictation all noted drain is leaking post PRBC X 1 U Exam/Review of Systems Vital Signs Vitals Vital Signs Date Time Temp Pulse Resp B/P Pulse Ox O2 Delivery O2 Flow Rate FiO2 04/11/17 19:57 97.9 48 19 113/65 98 04/11/17 00:00 Room Air Intake and Output 04/10/17 04/10/17 04/11/17 15:00 23:00 07:00 Intake Total 800 ml 1200 ml Output Total 70 ml 45 ml Balance 730 ml 1155 ml Exam Constitutional: alert, oriented Head: normocephalic Respiratory: normal air movement Cardiovascular: regular rate and rhythm Gastrointestinal: non-tender, other (Noted with right flank drain), soft Extremities: No edema Neurological: nl mental status, nl speech Results Result Diagram: 04/11/17 1408 04/11/17 1408 Results 24 hrs Laboratory Tests Test 04/11/17 01:50 04/11/17 14:08 Vancomycin Level Trough 8.7 L White Blood Count 19.1 #H Red Blood Count 2.91 L Hemoglobin 8.9 L Hematocrit 27.5 L Mean Corpuscular Volume 94.5 Mean Corpuscular Hemoglobin 30.6 Mean Corpuscular Hemoglobin Concent 32.4 Red Cell Distribution Width 20.8 H Platelet Count 287 Mean Platelet Volume 10.7 H Neutrophils % 94.7 H Lymphocytes % 1.4 L Monocytes % 2.8 Eosinophils % 0.1 Basophils % 0.2 Nucleated Red Blood Cells % 0.0 Neutrophils # 18.1 H Lymphocytes # 0.3 L Monocytes # 0.5 Eosinophils # 0.0 Basophils # 0.0 Nucleated Red Blood Cells # 0.0 Sodium Level 141 Potassium Level 3.8 Chloride Level 103 Carbon Dioxide Level 26 Anion Gap 16 Blood Urea Nitrogen 22 H Creatinine 0.58 L Glucose Level 158 Calcium Level 8.3 L Medications Medications Current Medications Ondansetron HCl (Zofran Inj) 4 mg Q6H PRN IV NAUSEA AND/OR VOMITING; Start at 19:30 Acetaminophen (Tylenol Tab) 650 mg Q6H PRN PO PAIN LEVEL 1-3 OR FEVER; Start at 19:30 Docusate Sodium (Colace) 100 mg Q12H PRN PO CONSTIPATION; Start 03/30/17 at 19: 30 Magnesium Hydroxide (Milk Of Mag) 30 ml DAILY PRN PO CONSTIPATION; Start at 19:30 Sodium Biphosphate/ Sodium Phosphate (Fleet Enema) 133 ml DAILY PRN [place] CONSTIPATION; Start 03/30/17 at 19:30 Pantoprazole 40 mg 40 mg DAILY@06 IV Last administered on 04/11/17t 06:00; Admin Dose 40 MG; Start 03/31/17 at 06:00 Piperacillin Sod/ Tazobactam Sod (Zosyn 3.375gm/ 100 ml (Pmx)) 100 ml @ 200 mls /hr Q6 IVPB Last administered on 04/11/17 17:15; Admin Dose 200 MLS/HR; Start 03/31/17 at 00:00 Hydralazine HCl (Apresoline) 10 mg Q6H PRN IV ELEVATED BLOOD PRESSURE; Start at 19:30 Nitroglycerin (Nitroglycerin (Sl Tab) 0.4 Mg) 1 tab Q5M PRN SL ANGINA; Start at 19:30 Hydromorphone HCl (Dilaudid SUPERVISOR WELDING EQUIPMENT REPAIRER) MG/HR CONTINUOUS R... Q4PCA IV Last administered on 04/11/17 10:39; Admin Dose 6 MG; Start 03/31/17 at 13:30 Potassium Chloride (Klor-Con 10) 10 meq BID PO Last administered on 04/11/17 21:25; Admin Dose 10 MEQ; Start 04/07/17 at 21:00 Escitalopram Oxalate (Lexapro) 20 mg DAILY PO Last administered on 04/11/17 09 :21; Admin Dose 20 MG; Start 04/11/17 at 09:00 Methylprednisolone Sodium Succinate (Solu-Medrol) 60 mg AM IV Last administered on 04/11/17 09:21; Admin Dose 60 MG; Start 04/11/17 at 09:00 Ketorolac Tromethamine (Toradol) 15 mg Q6H PRN IV PAIN; Start 04/11/17 at 15:30 ; Stop 04/14/17 at 15:29 KIN ESTEBAN MD April 11, 2017 22:54
[2017-04-12] VITALS (10 sets, daily range): BP systolic 98–123; BP diastolic 53–72; PULSE 40–60; RESP 16–18
[2017-04-12] MEDS: PIPER-TAZO 3.375 GM IV (PMX) 100 ML IVPB SCH ×4 (01:24→17:44)
[2017-04-12] MEDS: PANTOPRAZOLE 40 MG INJ IV SCH (05:45)
[2017-04-12] MEDS: KETOROLAC 15 MG INJ IV PRN ×2 (06:20→17:45)
[2017-04-12 07:22] LABS: ADD SCAN DIFF NO
[2017-04-12 07:26] LABS: BASOPHILS % 0.1 % (0.0-2.0); EOSINOPHILS # 0.1 10^3/ul (0.0-0.5); EOSINOPHILS % 0.7 % (0.0-7.0); HEMATOCRIT 28.4 % (42.0-52.0); HEMOGLOBIN 9.1 g/dl (14.0-18.0); LYMPHOCYTES # 1.2 10^3/ul (0.8-2.9); LYMPHOCYTES % 7.4 % (15.0-51.0); MEAN CORPUSCULAR HEMOGLOBIN 30.5 pg (29.0-33.0); MEAN CORPUSCULAR VOLUME 95.3 fl (82.0-101.0); MEAN PLATELET VOLUME 10.9 fl (7.4-10.4); MONOCYTE # 0.8 10^3/ul (0.3-0.9); MONOCYTES % 4.9 % (0.0-11.0); NEUTROPHIL # 14.1 10^3/ul (1.6-7.5); NEUTROPHILS % 86.2 % (39.0-77.0); PLATELET COUNT 275 10^3/UL (140-415); RED BLOOD COUNT 2.98 10^6/ul (4.70-6.10); RED CELL DISTRIBUTION WIDTH 20.7 % (11.5-14.5); WHITE BLOOD COUNT 16.3 10^3/ul (4.8-10.8)
[2017-04-12 07:42] LABS: CALCIUM 8.5 mg/dl (8.4-10.2); CREATININE 0.57 mg/dl (0.61-1.24); POTASSIUM 3.7 mmol/L (3.5-5.1)
[2017-04-12] MEDS: ESCITALOPRAM 10 MG TAB PO SCH (09:00)
[2017-04-12] MEDS ORDERED: CEFAZOLIN 1 GM/50 ML (PMX) 50 ML IVPB ONE (09:00)
[2017-04-12] MEDS: POTASSIUM CHLORIDE (SR) 10 MEQ TAB PO SCH ×2 (09:00→21:54)
--- NOTE | 2017-04-12 10:06 | RADRPT ---
PROCEDURE: Chest Radiograph. CLINICAL INDICATION: Cough. Pneumonia. TECHNIQUE: Single frontal chest radiograph. COMPARISON: Chest radiograph 03/30/2017 FINDINGS: The cardiomediastinal silhouette is within normal limits. There is mild basilar atelectasis. There may be trace pleural effusions. No confluent or lobar infiltrate is seen. The bones are intact. IMPRESSION: 1. Questionable trace pleural effusions which can be further evaluated on the lateral view of the c hest. 2. No definitive evidence of acute cardiopulmonary disease. RPTAT: AA .Cristhian Cordero MD, MD Date Time Electronically viewed and signed by .Cristhian Cordero MD, on 04/12/2017 10:05 .B/
[2017-04-12] MEDS: METHYLPREDNISOLONE 125 MG INJ IV SCH (10:29)
--- NOTE | 2017-04-12 14:59 | CONS ---
Date/Time of Note Date/Time of Note DATE: 04/12/17 TIME: 14:57 Assessment/Plan Assessment/Plan Chief Complaint/Hosp Course SUBJECTIVE: No acute changes. The patient is alert, feels ok, no fevers, nad MICROBIOLOGY: Fluid culture growing Bacteroides fragilis and Klebsiella pneumoniae susceptible essentially to all antibiotics. Stool for C. diff came back negative. Blood cultures have been negative since admission. ANTIMICROBIALS: Zosyn . PHYSICAL EXAMINATION: GENERAL: This is a cachectic elderly man who is alert, in no distress. HEENT: Head atraumatic, normocephalic. Sclerae anicteric. Buccal mucosa dry. NECK: Supple. CHEST: Rise symmetrical. Breath sounds clear. HEART: S1, S2. ABDOMEN: Soft. Bowel sounds present. The patient has 2 drainages, one in the middle and one on the right with greenish drainage in the bag. EXTREMITIES: No cyanosis, edema. ASSESSMENT: 1. Systemic inflammatory response syndrome secondary to intraabdominal infection and possibly secondary to steroids. 2. Biliary obstruction status post fluoroscopic-guided biliary drainage catheter placement on 04/09/2014 with culture growing Klebsiella pneumoniae and Bacteroides fragilis. 3. History of ulcerative colitis status post total proctocolectomy and ileoanal pouch. 4. History of primary sclerosing cholangitis since 2008. 5. Metastatic cholangiocarcinoma to lymph nodes and liver. 6. Cachexia. PLAN: The patient remains stable. CXR revealed no PNA. Continue abx, f/u surgical rec-s, pending catheter exchange DW pt/family at bedside Problems: Consultation Date/Type/Reason Admit Date/Time March 30, 2017 at 18:53 Initial Consult Date 03/31/17 Type of Consultation: id Referring Provider: HUMZA JAIME MD Exam/Review of Systems Vital Signs Vitals Vital Signs Date Time Temp Pulse Resp B/P Pulse Ox O2 Delivery O2 Flow Rate FiO2 04/12/17 12:19 18 04/12/17 12:12 51 04/12/17 08:13 97.6 104/65 98 04/11/17 00:00 Room Air Intake and Output 04/11/17 04/11/17 04/12/17 15:00 23:00 07:00 Intake Total 1700 ml 500 ml Output Total 35 ml 105 ml Balance 1665 ml 395 ml Results Result Diagram: 04/12/17 0627 04/12/17 0657 Results 24 hrs Laboratory Tests Test 04/12/17 06:27 04/12/17 06:57 White Blood Count 16.3 H Red Blood Count 2.98 L Hemoglobin 9.1 L Hematocrit 28.4 L Mean Corpuscular Volume 95.3 Mean Corpuscular Hemoglobin 30.5 Mean Corpuscular Hemoglobin Concent 32.0 Red Cell Distribution Width 20.7 H Platelet Count 275 Mean Platelet Volume 10.9 H Neutrophils % 86.2 H Lymphocytes % 7.4 L Monocytes % 4.9 Eosinophils % 0.7 Basophils % 0.1 Nucleated Red Blood Cells % 0.0 Neutrophils # 14.1 H Lymphocytes # 1.2 Monocytes # 0.8 Eosinophils # 0.1 Basophils # 0.0 Nucleated Red Blood Cells # 0.0 Sodium Level 137 Potassium Level 3.7 Chloride Level 103 Carbon Dioxide Level 28 Anion Gap 10 # Blood Urea Nitrogen 17 Creatinine 0.57 L Glucose Level 75 # Calcium Level 8.5 Medications Medications Current Medications Ondansetron HCl (Zofran Inj) 4 mg Q6H PRN IV NAUSEA AND/OR VOMITING; Start at 19:30 Acetaminophen (Tylenol Tab) 650 mg Q6H PRN PO PAIN LEVEL 1-3 OR FEVER; Start at 19:30 Docusate Sodium (Colace) 100 mg Q12H PRN PO CONSTIPATION; Start 03/30/17 at 19: 30 Magnesium Hydroxide (Milk Of Mag) 30 ml DAILY PRN PO CONSTIPATION; Start at 19:30 Sodium Biphosphate/ Sodium Phosphate (Fleet Enema) 133 ml DAILY PRN [place] CONSTIPATION; Start 03/30/17 at 19:30 Pantoprazole 40 mg 40 mg DAILY@06 IV Last administered on 04/12/17 05:45; Admin Dose 40 MG; Start 03/31/17 at 06:00 Piperacillin Sod/ Tazobactam Sod (Zosyn 3.375gm/ 100 ml (Pmx)) 100 ml @ 200 mls /hr Q6 IVPB Last administered on 04/12/17 12:33; Admin Dose 200 MLS/HR; Start 03/31/17 at 00:00 Hydralazine HCl (Apresoline) 10 mg Q6H PRN IV ELEVATED BLOOD PRESSURE; Start at 19:30 Nitroglycerin (Nitroglycerin (Sl Tab) 0.4 Mg) 1 tab Q5M PRN SL ANGINA; Start at 19:30 Hydromorphone HCl (Dilaudid DISTRICT MANAGER MAJOR [employer]OUNTS SALES) MG/HR CONTINUOUS R... Q4PCA IV Last administered on 04/11/17 10:39; Admin Dose 6 MG; Start 03/31/17 at 13:30 Potassium Chloride (Klor-Con 10) 10 meq BID PO Last administered on 04/11/17 21:25; Admin Dose 10 MEQ; Start 04/07/17 at 21:00 Escitalopram Oxalate (Lexapro) 20 mg DAILY PO Last administered on 04/11/17 09 :21; Admin Dose 20 MG; Start 04/11/17 at 09:00 Methylprednisolone Sodium Succinate (Solu-Medrol) 60 mg AM IV Last administered on 04/12/17 10:29; Admin Dose 60 MG; Start 04/11/17 at 09:00 Ketorolac Tromethamine (Toradol) 15 mg Q6H PRN IV PAIN Last administered on 06:20; Admin Dose 15 MG; Start 04/11/17 at 15:30; Stop 04/14/17 at 15:29 DEBRA GILL NP April 12, 2017 14:59
[2017-04-12] MEDS ORDERED: IOHEXOL 300MG/ML 30 ML BTL ONE (15:33)
[2017-04-12] MEDS ORDERED: LIDOCAINE 1% (MDV) 20 ML INJ ONE (15:33)
--- NOTE | 2017-04-12 16:08 | PN ---
Date/Time of Note Date/Time of Note DATE: 04/12/17 TIME: 16:03 Assessment/Plan VTE Prophylaxis VTE Prophylaxis Intervention: SCD's Lines/Catheters IV Catheter Type (from [facility]): [facility] Urinary Cath still in place: No Assessment/Plan Chief Complaint/Hosp Course 1. 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 Patient postop cholecystectomy and excision of extrahepatic CBD and Isabell-en-Y hepaticojejunostomy. Continue with analgesics. Surgeon following. s/p IR intervention on April 09, 2017. cont wound care. tenative plan for upsizing of tube for drainage 2. History of chronic Crohn's disease status post proximal colectomy with J- pouch creation in 2005. Continue GI recommendations. 3. 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 Oncologist following. Further management for consideration of possible chemotherapy/radiation per oncologist. Unstable for chemo/radiation at this time 4. bradycardia. Asymptomatic present. Continue telemetry monitoring. 5. History of depression. Patient to be continued on Lexapro medication. no reports of suicidal ideation during visit 6. Noted failure to thrive. Encourage oral intake. 7. thromboycytopenia. Monitor for signs or symptoms of bleeding. 8. Lumbar fracture (L2). As evidenced per CT scan of the lumbar spine. Discussed with DrRocio In Laura Ward, plan for placement of C.A.S.H. brace Disposition and plan: Awaiting C.A.S.H. brace. tentative plan for upsizing of tube for drainage. will follow up Discussed plan of care with Dr. Sanz Problems: Subjective 24 Hr Interval Summary Free Text/Dictation no s/s of distress Exam/Review of Systems Vital Signs Vitals Vital Signs Date Time Temp Pulse Resp B/P Pulse Ox O2 Delivery O2 Flow Rate FiO2 04/12/17 12:19 18 04/12/17 12:12 51 04/12/17 08:13 97.6 104/65 98 04/11/17 00:00 Room Air Intake and Output 04/11/17 04/11/17 04/12/17 15:00 23:00 07:00 Intake Total 1700 ml 500 ml Output Total 35 ml 105 ml Balance 1665 ml 395 ml Exam Constitutional: alert, frail, oriented, calm Psych: depression Neck: No jvd Respiratory: clear to auscultation, normal air movement Cardiovascular: regular rate and rhythm Gastrointestinal: other (right flank drainage bag x2 ), soft, tender Musculoskeletal: No nl gait and stance Neurological: DISHWASHER BUSSER II-XII intact, nl mental status, nl speech Results Result Diagram: 04/12/17 0627 04/12/17 0657 Results 24 hrs Laboratory Tests Test 04/12/17 06:27 04/12/17 06:57 White Blood Count 16.3 H Red Blood Count 2.98 L Hemoglobin 9.1 L Hematocrit 28.4 L Mean Corpuscular Volume 95.3 Mean Corpuscular Hemoglobin 30.5 Mean Corpuscular Hemoglobin Concent 32.0 Red Cell Distribution Width 20.7 H Platelet Count 275 Mean Platelet Volume 10.9 H Neutrophils % 86.2 H Lymphocytes % 7.4 L Monocytes % 4.9 Eosinophils % 0.7 Basophils % 0.1 Nucleated Red Blood Cells % 0.0 Neutrophils # 14.1 H Lymphocytes # 1.2 Monocytes # 0.8 Eosinophils # 0.1 Basophils # 0.0 Nucleated Red Blood Cells # 0.0 Sodium Level 137 Potassium Level 3.7 Chloride Level 103 Carbon Dioxide Level 28 Anion Gap 10 # Blood Urea Nitrogen 17 Creatinine 0.57 L Glucose Level 75 # Calcium Level 8.5 Medications Medications Current Medications Ondansetron HCl (Zofran Inj) 4 mg Q6H PRN IV NAUSEA AND/OR VOMITING; Start at 19:30 Acetaminophen (Tylenol Tab) 650 mg Q6H PRN PO PAIN LEVEL 1-3 OR FEVER; Start at 19:30 Docusate Sodium (Colace) 100 mg Q12H PRN PO CONSTIPATION; Start 03/30/17 at 19: 30 Magnesium Hydroxide (Milk Of Mag) 30 ml DAILY PRN PO CONSTIPATION; Start at 19:30 Sodium Biphosphate/ Sodium Phosphate (Fleet Enema) 133 ml DAILY PRN [place] CONSTIPATION; Start 03/30/17 at 19:30 Pantoprazole 40 mg 40 mg DAILY@06 IV Last administered on 04/12/17 05:45; Admin Dose 40 MG; Start 03/31/17 at 06:00 Piperacillin Sod/ Tazobactam Sod (Zosyn 3.375gm/ 100 ml (Pmx)) 100 ml @ 200 mls /hr Q6 IVPB Last administered on 5/26/17at 12:33; Admin Dose 200 MLS/HR; Start 03/31/17 at 00:00 Hydralazine HCl (Apresoline) 10 mg Q6H PRN IV ELEVATED BLOOD PRESSURE; Start at 19:30 Nitroglycerin (Nitroglycerin (Sl Tab) 0.4 Mg) 1 tab Q5M PRN SL ANGINA; Start at 19:30 Hydromorphone HCl (Dilaudid SEISMIC ENGINEER) MG/HR CONTINUOUS R... Q4PCA IV Last administered on 04/11/17 10:39; Admin Dose 6 MG; Start 03/31/17 at 13:30 Potassium Chloride (Klor-Con 10) 10 meq BID PO Last administered on 04/11/17 21:25; Admin Dose 10 MEQ; Start 04/07/17 at 21:00 Escitalopram Oxalate (Lexapro) 20 mg DAILY PO Last administered on 04/11/17 09 :21; Admin Dose 20 MG; Start 04/11/17 at 09:00 Methylprednisolone Sodium Succinate (Solu-Medrol) 60 mg AM IV Last administered on 04/12/17 10:29; Admin Dose 60 MG; Start 04/11/17 at 09:00 Ketorolac Tromethamine (Toradol) 15 mg Q6H PRN IV PAIN Last administered on 06:20; Admin Dose 15 MG; Start 04/11/17 at 15:30; Stop 04/14/17 at 15:29 CANDIS MARIE April 12, 2017 16:08
--- NOTE | 2017-04-12 19:58 | CONS ---
Date/Time of Note Date/Time of Note DATE: 04/12/17 TIME: 19:54 Assessment/Plan Assessment/Plan Chief Complaint/Hosp Course 1. 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 postop , NOW WITH Metastatic dis in the liver lobular area of elevated T2 signal is seen in the central liver worrisome for a mass possibly cholangiocarcinoma and this causes prominent intrahepatic biliary ductal dilatation of both the left and right intrahepatic biliary ducts with central loss of signal at the area of the mass. CT and MRI- REVIEWED TUMOR MARKERS : ca 19-9 1420 , c/w to tumor progression hepatobiliary consult noted- D/W D LEÓN POST drain placement in the right lobe of the liver- c/w abscess POST stenting across the anastomosis with IR. PTBD LFT - noted 2. Obstructive jaundice. Stable, ro stricture/recurrent tumor. MRCP/GI eval, hepatobiliary surgery consult- REVIEWED surgical f-up Dr Anderson noted POST biliary drainage by interventional radiology 3. Chronic Crohn's disease status post total proctocolectomy with J-pouch creation 2005. 4. Chronic primary sclerosing cholangitis w cholangiocarcinoma. Needs advanced care planning evaluated. Poor prognosis. Performance status questionable at this time for chemotherapy & bilirubin needs some improvement. 5. Malnutrition; oral feeds/Megace vs TPN 6. Active pouchitis? 7. Postop day 16 bd excision w cholecystectomy, excision of extrahepatic cbd and Isabell-en-Y hepaticojejunostomy. 8. Failure to thrive, may need snf 9. Anemia- WILL TRANSFUSE PRBC PRN 10. Reactive thrombocytosis 11. Dyslipidemia. POOR PS Problems: Consultation Date/Type/Reason Admit Date/Time March 30, 2017 at 18:53 Initial Consult Date 03/31/17 Type of Consultation: [facility] Referring Provider: HUMZA JAIME MD 24 HR Interval Summary Free Text/Dictation all noted very weak Exam/Review of Systems Vital Signs Vitals Vital Signs Date Time Temp Pulse Resp B/P Pulse Ox O2 Delivery O2 Flow Rate FiO2 04/12/17 19:12 97.9 60 16 123/72 99 04/11/17 00:00 Room Air Intake and Output 04/11/17 04/11/17 04/12/17 15:00 23:00 07:00 Intake Total 1700 ml 500 ml Output Total 35 ml 105 ml Balance 1665 ml 395 ml Exam Constitutional: alert, oriented Head: normocephalic Respiratory: normal air movement Cardiovascular: regular rate and rhythm Gastrointestinal: non-tender, other (Noted with right flank drain), soft Extremities: No edema Neurological: nl mental status, nl speech Results Result Diagram: 04/12/17 0627 04/12/17 0657 Results 24 hrs Laboratory Tests Test 04/12/17 06:27 04/12/17 06:57 White Blood Count 16.3 H Red Blood Count 2.98 L Hemoglobin 9.1 L Hematocrit 28.4 L Mean Corpuscular Volume 95.3 Mean Corpuscular Hemoglobin 30.5 Mean Corpuscular Hemoglobin Concent 32.0 Red Cell Distribution Width 20.7 H Platelet Count 275 Mean Platelet Volume 10.9 H Neutrophils % 86.2 H Lymphocytes % 7.4 L Monocytes % 4.9 Eosinophils % 0.7 Basophils % 0.1 Nucleated Red Blood Cells % 0.0 Neutrophils # 14.1 H Lymphocytes # 1.2 Monocytes # 0.8 Eosinophils # 0.1 Basophils # 0.0 Nucleated Red Blood Cells # 0.0 Sodium Level 137 Potassium Level 3.7 Chloride Level 103 Carbon Dioxide Level 28 Anion Gap 10 # Blood Urea Nitrogen 17 Creatinine 0.57 L Glucose Level 75 # Calcium Level 8.5 Medications Medications Current Medications Ondansetron HCl (Zofran Inj) 4 mg Q6H PRN IV NAUSEA AND/OR VOMITING; Start at 19:30 Acetaminophen (Tylenol Tab) 650 mg Q6H PRN PO PAIN LEVEL 1-3 OR FEVER; Start at 19:30 Docusate Sodium (Colace) 100 mg Q12H PRN PO CONSTIPATION; Start 03/30/17 at 19: 30 Magnesium Hydroxide (Milk Of Mag) 30 ml DAILY PRN PO CONSTIPATION; Start at 19:30 Sodium Biphosphate/ Sodium Phosphate (Fleet Enema) 133 ml DAILY PRN [place] CONSTIPATION; Start 03/30/17 at 19:30 Pantoprazole 40 mg 40 mg DAILY@06 IV Last administered on 04/12/17 05:45; Admin Dose 40 MG; Start 03/31/17 at 06:00 Piperacillin Sod/ Tazobactam Sod (Zosyn 3.375gm/ 100 ml (Pmx)) 100 ml @ 200 mls /hr Q6 IVPB Last administered on 04/12/17 17:44; Admin Dose 200 MLS/HR; Start 03/31/17 at 00:00 Hydralazine HCl (Apresoline) 10 mg Q6H PRN IV ELEVATED BLOOD PRESSURE; Start at 19:30 Nitroglycerin (Nitroglycerin (Sl Tab) 0.4 Mg) 1 tab Q5M PRN SL ANGINA; Start at 19:30 Hydromorphone HCl (Dilaudid SURVEY AND MAPPING TECHNICIAN) MG/HR CONTINUOUS R... Q4PCA IV Last administered on 04/11/17 10:39; Admin Dose 6 MG; Start 03/31/17 at 13:30 Potassium Chloride (Klor-Con 10) 10 meq BID PO Last administered on 04/11/17 21:25; Admin Dose 10 MEQ; Start 04/07/17 at 21:00 Escitalopram Oxalate (Lexapro) 20 mg DAILY PO Last administered on 04/11/17 09 :21; Admin Dose 20 MG; Start 04/11/17 at 09:00 Methylprednisolone Sodium Succinate (Solu-Medrol) 60 mg AM IV Last administered on 04/12/17 10:29; Admin Dose 60 MG; Start 04/11/17 at 09:00 Ketorolac Tromethamine (Toradol) 15 mg Q6H PRN IV PAIN Last administered on 17:45; Admin Dose 15 MG; Start 04/11/17 at 15:30; Stop 04/14/17 at 15:29 KIN ESTEBAN MD April 12, 2017 19:58
--- NOTE | 2017-04-12 20:22 | RADRPT ---
PROCEDURE: Fluoroscopic guided replacement of right sided external biliary drainage catheter. CLINICAL INDICATION: The existing biliary drainage catheter as leakage around the tube. TECHNIQUE: Informed consent was obtained. Risks including bleeding and infection were explained to the patient. The patient understood and was willing to proceed. A procedural pause was performed. The patient's name, date of , and procedure to be performed were verified. The drainage catheter was inserted with all elements of maximal sterile barrier technique. All of the following were used: head coveri ng, facial mask, sterile gown, sterile gloves, a large sterile sheet, hand hygiene, and 2% chlorhex idine for cutaneous antisepsis. The right sided drainage catheter and surrounding skin in the right upper quadrant were prepped and draped in usual sterile fashion. Following the local injection of Xylocaine, a 0.035 inch Glidewire was advanced through the existing 8.5 Barbadian drainage catheter in the right biliary system. The existing drainage catheter was remove d over the guidewire. A new 10.2 Barbadian multipurpose drainage catheter was then advanced over the guidewire such that the tip is coiled in the right main common bile duct centrally. Position was confirmed with cholangiogr am with contrast injection. The catheter was secured to the skin with 2-0 silk. The site was dressed. The patient tolerated the procedure well. COMPARISON: Intraoperative imaging dated 04/09/2017. FINDINGS: The initial cholangiogram demonstrates the existing 8.5 Barbadian catheter in satisfactory position wit hin the right main bile duct centrally. With catheter replacement, the cholangiogram demonstrates t he new 8.2 Barb[place] catheter in satisfactory position within the right main bile duct centrally. A lef t-sided internal external biliary drainage catheter is in satisfactory position as seen previously. IMPRESSION: 1. Satisfactory fluoroscopic guided replacement of right external biliary drainage catheter. 2. The left sided internal external biliary drainage catheter remains in satisfactory position. RPTAT: QQ .Talat Grijalva MD, Date Time Electronically viewed and signed by .Talat Grijalva MD, MD on 04/12/2017 20:21 .R/
[2017-04-13] VITALS (11 sets, daily range): BP systolic 101–143; BP diastolic 58–75; PULSE 40–67; RESP 16–20
[2017-04-13] MEDS: PIPER-TAZO 3.375 GM IV (PMX) 100 ML IVPB SCH ×4 (00:18→17:11)
[2017-04-13] MEDS: HYDROmorphONE 0.2 MG/ML PCA IV SCH (05:00)
[2017-04-13] MEDS: PANTOPRAZOLE 40 MG INJ IV SCH (05:20)
[2017-04-13 06:57] LABS: ADD SCAN DIFF NO
[2017-04-13 07:06] LABS: BASOPHILS % 0.1 % (0.0-2.0); EOSINOPHILS # 0.1 10^3/ul (0.0-0.5); EOSINOPHILS % 0.6 % (0.0-7.0); HEMATOCRIT 27.3 % (42.0-52.0); HEMOGLOBIN 8.7 g/dl (14.0-18.0); LYMPHOCYTES # 1.3 10^3/ul (0.8-2.9); LYMPHOCYTES % 9.4 % (15.0-51.0); MEAN CORPUSCULAR HGB CONC 31.9 g/dl (32.0-37.0); MEAN CORPUSCULAR VOLUME 94.1 fl (82.0-101.0); MEAN PLATELET VOLUME 10.8 fl (7.4-10.4); MONOCYTE # 0.6 10^3/ul (0.3-0.9); MONOCYTES % 4.2 % (0.0-11.0); PLATELET COUNT 249 10^3/UL (140-415); RED CELL DISTRIBUTION WIDTH 20.4 % (11.5-14.5); WHITE BLOOD COUNT 14.1 10^3/ul (4.8-10.8)
[2017-04-13 07:46] LABS: POTASSIUM 3.7 mmol/L (3.5-5.1)
[2017-04-13 07:48] LABS: CREATININE 0.53 mg/dl (0.61-1.24)
[2017-04-13 07:49] LABS: CALCIUM 8.2 mg/dl (8.4-10.2)
[2017-04-13] MEDS: POTASSIUM CHLORIDE (SR) 10 MEQ TAB PO SCH ×2 (09:42→22:14)
[2017-04-13] MEDS: ESCITALOPRAM 10 MG TAB PO SCH (09:42)
[2017-04-13] MEDS: METHYLPREDNISOLONE 125 MG INJ IV SCH (09:43)
--- NOTE | 2017-04-13 10:28 | PN ---
Date/Time of Note Date/Time of Note DATE: 04/13/17 TIME: 10:24 Assessment/Plan VTE Prophylaxis VTE Prophylaxis Intervention: SCD's Lines/Catheters IV C[facility]ter Type (from [facility]): Saline Lock Urinary Cath still in place: No Assessment/Plan Assessment/Plan Obstructive jaundice S/P PTBD 04/09/2017 S/P PTBD right biliary system 04/04/2017 S/P bile duct excision with cholecystectomy excision of extrahepatic duct,and Isabell en Y hepaticojejuniostomy sec to cholangiocarcinoma MRI 03/31/2017 There is a lobular area of elevated T2 signal is seen in the central liver worrisome for a mass possibly cholangiocarcinoma and this causes prominent intrahepatic biliary ductal dilatation of both the left and right intrahepatic biliary ducts with central loss of signal at the area of the mass. Prominent hepatomegaly is seen with findings suggestive for portal hypertension. Mild ascites is seen. Surgical changes are seen of the bowel with no evidence of an obstruction. There is a fecal filled colon * Hematochezia/Anemia * History of proctocolectomy with J pouch 2005 * History of sigmoidoscopy 01/2017 moderate pouchitis,no evidence of malignancy * Intractable pain Plan * Continue present management * pain control Subjective 24 Hr Interval Summary Free Text/Dictation * Course reviewed with RN * patient seen and examined' * no leak on PTBD drain Exam/Review of Systems Vital Signs Vitals Vital Signs Date Time Temp Pulse Resp B/P Pulse Ox O2 Delivery O2 Flow Rate FiO2 04/13/17 09:49 18 04/13/17 08:44 40 04/13/17 07:35 97.7 131/73 98 04/11/17 00:00 Room Air Intake and Output 04/12/17 04/12/17 04/13/17 15:00 23:00 07:00 Intake Total 250 ml Output Total 90 ml 50 ml Balance -90 ml 200 ml Exam Constitutional: alert, frail Neck: non-tender, supple Respiratory: clear to auscultation, normal air movement Cardiovascular: nl pulses, regular rate and rhythm Gastrointestinal: soft Musculoskeletal: nl extremities to inspection Extremities: normal pulses Neurological: nl speech Results Result Diagram: 04/13/17 0636 04/13/17 0636 Results 24 hrs Laboratory Tests Test 04/13/17 06:36 White Blood Count 14.1 H Red Blood Count 2.90 L Hemoglobin 8.7 L Hematocrit 27.3 L Mean Corpuscular Volume 94.1 Mean Corpuscular Hemoglobin 30.0 Mean Corpuscular Hemoglobin Concent 31.9 L Red Cell Distribution Width 20.4 H Platelet Count 249 Mean Platelet Volume 10.8 H Neutrophils % 85.0 H Lymphocytes % 9.4 L Monocytes % 4.2 Eosinophils % 0.6 Basophils % 0.1 Nucleated Red Blood Cells % 0.0 Neutrophils # 12.0 H Lymphocytes # 1.3 Monocytes # 0.6 Eosinophils # 0.1 Basophils # 0.0 Nucleated Red Blood Cells # 0.0 Sodium Level 137 Potassium Level 3.7 Chloride Level 100 Carbon Dioxide Level 28 Anion Gap 13 Blood Urea Nitrogen 15 Creatinine 0.53 L Glucose Level 89 Calcium Level 8.2 L Medications Medications Current Medications Ondansetron HCl (Zofran Inj) 4 mg Q6H PRN IV NAUSEA AND/OR VOMITING; Start at 19:30 Acetaminophen (Tylenol Tab) 650 mg Q6H PRN PO PAIN LEVEL 1-3 OR FEVER; Start at 19:30 Docusate Sodium (Colace) 100 mg Q12H PRN PO CONSTIPATION; Start 03/30/17 at 19: 30 Magnesium Hydroxide (Milk Of Mag) 30 ml DAILY PRN PO CONSTIPATION; Start at 19:30 Sodium Biphosphate/ Sodium Phosphate (Fleet Enema) 133 ml DAILY PRN [place] CONSTIPATION; Start 03/30/17 at 19:30 Pantoprazole 40 mg 40 mg DAILY@06 IV Last administered on 04/13/17 05:20; Admin Dose 40 MG; Start 03/31/17 at 06:00 Piperacillin Sod/ Tazobactam Sod (Zosyn 3.375gm/ 100 ml (Pmx)) 100 ml @ 200 mls /hr Q6 IVPB Last administered on 04/13/17 05:20; Admin Dose 200 MLS/HR; Start 03/31/17 at 00:00 Hydralazine HCl (Apresoline) 10 mg Q6H PRN IV ELEVATED BLOOD PRESSURE; Start at 19:30 Nitroglycerin (Nitroglycerin (Sl Tab) 0.4 Mg) 1 tab Q5M PRN SL ANGINA; Start at 19:30 Hydromorphone HCl (Dilaudid SHIPFITTER APPRENTICE) MG/HR CONTINUOUS R... Q4PCA IV Last administered on 04/13/17 05:00; Admin Dose 0.2 MG; Start 03/31/17 at 13:30 Potassium Chloride (Klor-Con 10) 10 meq BID PO Last administered on 04/13/17 09:42; Admin Dose 10 MEQ; Start 04/07/17 at 21:00 Escitalopram Oxalate (Lexapro) 20 mg DAILY PO Last administered on 04/13/17 09 :42; Admin Dose 20 MG; Start 04/11/17 at 09:00 Methylprednisolone Sodium Succinate (Solu-Medrol) 60 mg AM IV Last administered on 04/13/17 09:43; Admin Dose 60 MG; Start 04/11/17 at 09:00 Ketorolac Tromethamine (Toradol) 15 mg Q6H PRN IV PAIN Last administered on 17:45; Admin Dose 15 MG; Start 04/11/17 at 15:30; Stop 04/14/17 at 15:29 BRAD PRADO MD April 13, 2017 10:28
--- NOTE | 2017-04-13 11:25 | CONS ---
Date/Time of Note Date/Time of Note DATE: 04/13/17 TIME: 11:25 Assessment/Plan Assessment/Plan Chief Complaint/Hosp Course ID PROGRESS NOTE CURRENT ABX: ANTIMICROBIALS: Zosyn . 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 Stool for C. diff came back negative. Blood cultures have been negative since admission. . ------ PHYSICAL EXAMINATION: VITAL SIGNS: Afebrile, VSS, NAD GENERAL:Cachetic HEENT: Unremarkable LUNGS: Equal chest rise without dyspnea on observation HEART: RRR ABDOMEN: Soft, ABD drains x2 green bilious EXTREMITIES: Warm SKIN: No diaphoresis ID IMPRESSION: 61 yo M admit with: 1. Systemic inflammatory response syndrome secondary to intraabdominal infection and possibly secondary to steroids. * Leukocytosis downtrend 2. Biliary obstruction status post fluoroscopic-guided biliary drainage catheter placement on 04/09/2014 with culture growing Klebsiella pneumoniae and Bacteroides fragilis. 3. History of ulcerative colitis status post total proctocolectomy and ileoanal pouch. 4. History of primary sclerosing cholangitis since 2008. 5. Metastatic cholangiocarcinoma to lymph nodes and liver. 6. Cachexia. (-) MRSA Nares INVASIVES: PIV CURRENT ABX: Zosyn #14 ID RECOMMENDATION 1. Continue current ABX & supportive care. . Problems: Consultation Date/Type/Reason Admit Date/Time March 30, 2017 at 18:53 Initial Consult Date 03/31/17 Type of Consultation: ID Referring Provider: HUMZA JAIME MD Exam/Review of Systems Vital Signs Vitals Vital Signs Date Time Temp Pulse Resp B/P Pulse Ox O2 Delivery O2 Flow Rate FiO2 04/13/17 09:49 18 04/13/17 08:44 40 04/13/17 07:35 97.7 131/73 98 04/11/17 00:00 Room Air Intake and Output 04/12/17 04/12/17 04/13/17 15:00 23:00 07:00 Intake Total 250 ml Output Total 90 ml 50 ml Balance -90 ml 200 ml Results Result Diagram: 04/13/17 0636 04/13/17 0636 Results 24 hrs Laboratory Tests Test 04/13/17 06:36 White Blood Count 14.1 H Red Blood Count 2.90 L Hemoglobin 8.7 L Hematocrit 27.3 L Mean Corpuscular Volume 94.1 Mean Corpuscular Hemoglobin 30.0 Mean Corpuscular Hemoglobin Concent 31.9 L Red Cell Distribution Width 20.4 H Platelet Count 249 Mean Platelet Volume 10.8 H Neutrophils % 85.0 H Lymphocytes % 9.4 L Monocytes % 4.2 Eosinophils % 0.6 Basophils % 0.1 Nucleated Red Blood Cells % 0.0 Neutrophils # 12.0 H Lymphocytes # 1.3 Monocytes # 0.6 Eosinophils # 0.1 Basophils # 0.0 Nucleated Red Blood Cells # 0.0 Sodium Level 137 Potassium Level 3.7 Chloride Level 100 Carbon Dioxide Level 28 Anion Gap 13 Blood Urea Nitrogen 15 Creatinine 0.53 L Glucose Level 89 Calcium Level 8.2 L Medications Medications Current Medications Ondansetron HCl (Zofran Inj) 4 mg Q6H PRN IV NAUSEA AND/OR VOMITING; Start at 19:30 Acetaminophen (Tylenol Tab) 650 mg Q6H PRN PO PAIN LEVEL 1-3 OR FEVER; Start at 19:30 Docusate Sodium (Colace) 100 mg Q12H PRN PO CONSTIPATION; Start 03/30/17 at 19: 30 Magnesium Hydroxide (Milk Of Mag) 30 ml DAILY PRN PO CONSTIPATION; Start at 19:30 Sodium Biphosphate/ Sodium Phosphate (Fleet Enema) 133 ml DAILY PRN [place] CONSTIPATION; Start 03/30/17 at 19:30 Pantoprazole 40 mg 40 mg DAILY@06 IV Last administered on 04/13/17 05:20; Admin Dose 40 MG; Start 03/31/17 at 06:00 Piperacillin Sod/ Tazobactam Sod (Zosyn 3.375gm/ 100 ml (Pmx)) 100 ml @ 200 mls /hr Q6 IVPB Last administered on 04/13/17 05:20; Admin Dose 200 MLS/HR; Start 03/31/17 at 00:00 Hydralazine HCl (Apresoline) 10 mg Q6H PRN IV ELEVATED BLOOD PRESSURE; Start at 19:30 Nitroglycerin (Nitroglycerin (Sl Tab) 0.4 Mg) 1 tab Q5M PRN SL ANGINA; Start at 19:30 Hydromorphone HCl (Dilaudid TONE ARTIST APPRENTICE) MG/HR CONTINUOUS R... Q4PCA IV Last administered on 04/13/17 05:00; Admin Dose 0.2 MG; Start 03/31/17 at 13:30 Potassium Chloride (Klor-Con 10) 10 meq BID PO Last administered on 04/13/17 09:42; Admin Dose 10 MEQ; Start 04/07/17 at 21:00 Escitalopram Oxalate (Lexapro) 20 mg DAILY PO Last administered on 04/13/17 09 :42; Admin Dose 20 MG; Start 04/11/17 at 09:00 Methylprednisolone Sodium Succinate (Solu-Medrol) 60 mg AM IV Last administered on 04/13/17 09:43; Admin Dose 60 MG; Start 04/11/17 at 09:00 Ketorolac Tromethamine (Toradol) 15 mg Q6H PRN IV PAIN Last administered on 17:45; Admin Dose 15 MG; Start 04/11/17 at 15:30; Stop 04/14/17 at 15:29 OCTAVIA CASH NP April 13, 2017 11:25 OCTAVIA CASH NP April 13, 2017 11:25
--- NOTE | 2017-04-13 12:04 | PN ---
DATE: 04/13/2017 POST ____ PROGRESS NOTE I have had an extensive conversation with Mr. Son today and spoke to him about his pain control as well as psychosocial issues. He has made it very clear to me that he has an advanced directive and noting on the chart, he is a DO NOT RESUSCITATE. This has been addressed prior to my consultation. Insofar as his pain management, he uses his COLOR COATER pump only infrequently, states that he is fearful of becoming too somnolent. We have had a discussion about that and told him I can address somnolen ce by lowering the dose and he could take the COLOR COATER to control his pain. He states when he does take the COLOR COATER dose that he feels much improved and he is able to get sleep at night. I have spoken to him about this in detail, but had to reinforce it a number of days, which is perfectly reasonable. ASSESSMENT AND PLAN: Once again, this is a post ____ progress note for 04/11/2017. Will continue t o follow and support and no changes in his current pain control at this time. Dictated By: SAVANAH DUBOSE MD, LP/JASMYNE Conf#: [id number] DID#: [id number]
[2017-04-13] MEDS: NYSTATIN SUSP 5 ML CUP PO SCH ×2 (18:09→22:14)
--- NOTE | 2017-04-13 19:48 | PN ---
Date/Time of Note Date/Time of Note DATE: 04/13/17 TIME: 19:45 Assessment/Plan Lines/Catheters IV Catheter Type (from Nrsg): Saline Lock [place] in Place (from Nrsg): No Assessment/Plan Assessment/Plan [facility] Progress Note Date of Service: 04/13/17 Today's Impression & Plan: Overall stable. Leak from R side resolved with drain upsizing. Compression fracture of the back a factor, but hopefully mitigated with brace alone; left biliary drain in good working condition; WBC acceptable; patient not septic; will need 2-3 weeks of medical stability to establish patient's baseline (minus the cholangitis) and then decide on how aggressively to treat the rest of the cholangiocarcinoma. Discussed and reviewed with patent and his friend. With above assessment, I've recommended the following for today: 1. Continued aggressive medical management with broad spec antimicrobials for the next few days 2. Aggressive nutritional support with increased oral intake. 3. Labs in am 4. Drains to gravity drainage 5. Maximize antidepressants 6. Continued supportive care management 7. Continue Toradol for back pain 8. Assisted activity with education on how to deal with his back Thank you again for your great care of this very pleasant patient and wonderful family. If there are any questions, please feel free to call me at [phone]. TOTAL VISIT TIME: 20 minutes of which more than half was spent in [id number] discussion with the patient, possibly including family, as well as coordination of care between multiple physicians and providers. Disclaimer: Inadvertent spelling or grammatical errors are likely due to EHR/ dictation software use and do not reflect on the overall quality of patient care. Updated clinical summary: A very pleasant 61-year-old gentleman with significant past medical history including ulcerative colitis status post total proctocolectomy and ileoanal pouch as well as a number of other medical issues who was diagnosed with cholangiocarcinoma and underwent a radical bile duct resection that included extrahepatic bile duct and gallbladder at [facility], 2016, with final diagnosis of cholangiocarcinoma with 1/8 lymph node positive disease as well as low-grade dysplasia and carcinoma in situ at the proximal margin. The patient was readmitted to [facility] after a 2 month hospital stay at [facility] with increasing weakness, jaundice, and diffuse body pain. S/p perc drainage of right biliary system 04/03/17. : s/p placement of left biliary drain which traverses patient's anastomosis on that side. Right system has a tight anastomosis that could not be traversed. R biliary drain upsized 04/12/17. COMORBIDITIES: 1. History of ulcerative colitis status post total proctocolectomy and ileoanal pouch. 2. Diagnosis of primary sclerosing cholangitis since 2008 being cared for at various institutions such as [facility] and by various physicians with involvement of Dr. Krystian Adkins for hepatology. 3. History of hospitalization at [facility] for bile duct obstruction from mid December to early March with bile duct excision with cholecystectomy with removal of extrahepatic bile duct and Isabell-en-Y hepaticojejunostomy on 07/2017 with the above-mentioned pathology. 4. Chronic back pain, mainly lower, for the last 5 to 6 years. 5. Significant weight loss of more than 20 to 30 pounds over the last 6 months. 6. No history of lymphoma (note that this was reported erroneously in the patient's chart. The patient does not report any history of lymphoma in the past and that is also corroborated by the patient's family). 7. Status post multiple ERCPs and stenting in the past since 2005. 8. Elevated alpha fetoprotein 1.8 in 12/2016. 9. Elevated CA19-9 of 272.9 in 12/2016. 10. Normal CEA at 1.6 on 01/14/2017. 11. Status post sigmoidoscopy, 01/16/2017, showing moderate pouchitis and negative for dysplasia or malignancy. 12. S/p perc drainage of right biliary system 04/03/17. 13. 04/09/17: s/p placement of left biliary drain which traverses patient's anastomosis on that side. Right system has a tight anastomosis that could not be traversed. 14. Compression fracture 04/10/17 Subjective: No major events or complaints; no major abd pain and under control with medications; no n/v/d; no sob or cp; + flatus; + BM and normal for him; minimal activity; feels depressed, fatigued and weak, but perhaps a bit improved. Objective: Vitals: See below Exam: GENERAL: On exam, the patient was laying in bed and appeared to be comfortable and in no acute distress. ABDOMEN: Soft, nontender and nondistended. Incisions are clean, dry and intact without any evidence of erythema, edema, discharge, or hernia. R biliary drain with less purulent fluid and trending toward more bilious output, although still serosanguineous, in the bag. No leakage from right side around the tube. L biliary drain with purulent fluid and trending toward more bilious output. SKIN: Skin appears to be less jaundiced and feels warm to touch. NEUROLOGIC: Patient was awake, alert, and followed commands appropriately. Exam/Review of Systems Vital Signs Vitals Vital Signs Date Time Temp Pulse Resp B/P Pulse Ox O2 Delivery O2 Flow Rate FiO2 04/13/17 19:29 16 04/13/17 16:13 67 04/13/17 15:47 98.4 108/58 98 04/11/17 00:00 Room Air Intake and Output 04/12/17 04/12/17 04/13/17 15:00 23:00 07:00 Intake Total 250 ml Output Total 90 ml 50 ml Balance -90 ml 200 ml Results Result Diagram: 04/13/17 0636 04/13/17 0636 ZOE GOYAL M.D. April 13, 2017 19:48
--- NOTE | 2017-04-13 21:11 | PN ---
Date/Time of Note Date/Time of Note DATE: 04/13/17 TIME: 21:06 Assessment/Plan VTE Prophylaxis VTE Prophylaxis Intervention: SCD's Lines/Catheters IV [facility]ter Type (from [facility]): Saline Lock Urinary Cath still in place: No Assessment/Plan Chief Complaint/Hosp Course 1. 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 Patient postop cholecystectomy and excision of extrahepatic CBD and Isabell-en-Y hepaticojejunostomy. Continue with analgesics. 2. History of chronic Crohn's disease status post proximal colectomy with J- pouch creation in 2005. Continue GI recommendations. 3. 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 Oncologist following. Further management for consideration of possible chemotherapy/radiation per oncologist. Unstable for chemo/radiation at this time 4. bradycardia. Asymptomatic present. Continue telemetry monitoring. 5. History of depression. Patient to be continued on Lexapro medication. no reports of suicidal ideation during visit 6. Noted failure to thrive. Encourage oral intake. 7. thromboycytopenia. Monitor for signs or symptoms of bleeding. 8. Lumbar fracture (L2). As evidenced per CT scan of the lumbar spine. cont with analgesics. tentative plan for C.A.S.H. BRACE. Disposition and plan: cont supportive care and analgesics. Patient not wanting C.A.S.H. brace at this time. Will follow up Discussed plan of care with Dr. aSnz Problems: Subjective 24 Hr Interval Summary Free Text/Dictation resting at this time. eating dinner. no specific complaints Exam/Review of Systems Vital Signs Vitals Vital Signs Date Time Temp Pulse Resp B/P Pulse Ox O2 Delivery O2 Flow Rate FiO2 04/13/17 20:51 98.3 61 20 143/75 97 04/11/17 00:00 Room Air Intake and Output 04/12/17 04/12/17 04/13/17 15:00 23:00 07:00 Intake Total 250 ml Output Total 90 ml 50 ml Balance -90 ml 200 ml Exam Constitutional: alert, frail, oriented, calm Psych: depression Neck: No jvd Respiratory: clear to auscultation, normal air movement Cardiovascular: regular rate and rhythm Gastrointestinal: other (right flank drainage bag x2 ), soft, tender Musculoskeletal: No nl gait and stance Neurological: GROUNDMAN/LINEMAN II-XII intact, nl mental status, nl speech Results Result Diagram: 04/13/1736 04/13/1736 Results 24 hrs Laboratory Tests Test 04/13/17 06:36 White Blood Count 14.1 H Red Blood Count 2.90 L Hemoglobin 8.7 L Hematocrit 27.3 L Mean Corpuscular Volume 94.1 Mean Corpuscular Hemoglobin 30.0 Mean Corpuscular Hemoglobin Concent 31.9 L Red Cell Distribution Width 20.4 H Platelet Count 249 Mean Platelet Volume 10.8 H Neutrophils % 85.0 H Lymphocytes % 9.4 L Monocytes % 4.2 Eosinophils % 0.6 Basophils % 0.1 Nucleated Red Blood Cells % 0.0 Neutrophils # 12.0 H Lymphocytes # 1.3 Monocytes # 0.6 Eosinophils # 0.1 Basophils # 0.0 Nucleated Red Blood Cells # 0.0 Sodium Level 137 Potassium Level 3.7 Chloride Level 100 Carbon Dioxide Level 28 Anion Gap 13 Blood Urea Nitrogen 15 Creatinine 0.53 L Glucose Level 89 Calcium Level 8.2 L Medications Medications Current Medications Ondansetron HCl (Zofran Inj) 4 mg Q6H PRN IV NAUSEA AND/OR VOMITING; Start at 19:30 Acetaminophen (Tylenol Tab) 650 mg Q6H PRN PO PAIN LEVEL 1-3 OR FEVER; Start at 19:30 Docusate Sodium (Colace) 100 mg Q12H PRN PO CONSTIPATION; Start 03/30/17 at 19: 30 Magnesium Hydroxide (Milk Of Mag) 30 ml DAILY PRN PO CONSTIPATION; Start at 19:30 Sodium Biphosphate/ Sodium Phosphate (Fleet Enema) 133 ml DAILY PRN [place] CONSTIPATION; Start 03/30/17 at 19:30 Pantoprazole 40 mg 40 mg DAILY@06 IV Last administered on 04/13/17 05:20; Admin Dose 40 MG; Start 03/31/17 at 06:00 Piperacillin Sod/ Tazobactam Sod (Zosyn 3.375gm/ 100 ml (Pmx)) 100 ml @ 200 mls /hr Q6 IVPB Last administered on 04/13/17 17:11; Admin Dose 200 MLS/HR; Start 03/31/17 at 00:00 Hydralazine HCl (Apresoline) 10 mg Q6H PRN IV ELEVATED BLOOD PRESSURE; Start at 19:30 Nitroglycerin (Nitroglycerin (Sl Tab) 0.4 Mg) 1 tab Q5M PRN SL ANGINA; Start at 19:30 Hydromorphone HCl (Dilaudid EDUCATION PROGRAM ASSOCIATE) MG/HR CONTINUOUS R... Q4PCA IV Last administered on 04/13/17 05:00; Admin Dose 0.2 MG; Start 03/31/17 at 13:30 Potassium Chloride (Klor-Con 10) 10 meq BID PO Last administered on 04/13/17 09:42; Admin Dose 10 MEQ; Start 04/07/17 at 21:00 Escitalopram Oxalate (Lexapro) 20 mg DAILY PO Last administered on 04/13/17 09 :42; Admin Dose 20 MG; Start 04/11/17 at 09:00 Methylprednisolone Sodium Succinate (Solu-Medrol) 60 mg AM IV Last administered on 04/13/17 09:43; Admin Dose 60 MG; Start 04/11/17 at 09:00 Ketorolac Tromethamine (Toradol) 15 mg Q6H PRN IV PAIN Last administered on 17:45; Admin Dose 15 MG; Start 04/11/17 at 15:30; Stop 04/14/17 at 15:29 Nystatin (Nystatin Susp) 5 ml QID PO Last administered on 04/13/17 18:09; Admin Dose 5 ML; Start 04/13/17 at 18:00 CANDIS MARIE April 13, 2017 21:11
[2017-04-13] MEDS: KETOROLAC 15 MG INJ IV PRN (22:14)
--- NOTE | 2017-04-13 23:22 | CONS ---
Date/Time of Note Date/Time of Note DATE: 04/13/17 TIME: 23:21 Assessment/Plan Assessment/Plan Chief Complaint/Hosp Course 1. 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 postop , NOW WITH Metastatic dis in the liver lobular area of elevated T2 signal is seen in the central liver worrisome for a mass possibly cholangiocarcinoma and this causes prominent intrahepatic biliary ductal dilatation of both the left and right intrahepatic biliary ducts with central loss of signal at the area of the mass. CT and MRI- REVIEWED TUMOR MARKERS : ca 19-9 1420 , c/w to tumor progression hepatobiliary consult noted- D/W D LEÓN POST drain placement in the right lobe of the liver- c/w abscess POST stenting across the anastomosis with IR. PTBD LFT - noted 2. Obstructive jaundice. Stable, ro stricture/recurrent tumor. MRCP/GI eval, hepatobiliary surgery consult- REVIEWED surgical f-up Dr Anderson noted POST biliary drainage by interventional radiology 3. Chronic Crohn's disease status post total proctocolectomy with J-pouch creation 2005. 4. Chronic primary sclerosing cholangitis w cholangiocarcinoma. Needs advanced care planning evaluated. Poor prognosis. Performance status questionable at this time for chemotherapy & bilirubin needs some improvement. 5. Malnutrition; oral feeds/Megace vs TPN 6. Active pouchitis? 7. Postop day 16 bd excision w cholecystectomy, excision of extrahepatic cbd and Isabell-en-Y hepaticojejunostomy. 8. Failure to thrive, may need snf 9. Anemia- WILL TRANSFUSE PRBC PRN 10. Reactive thrombocytosis 11. Dyslipidemia. POOR PS Problems: Consultation Date/Type/Reason Admit Date/Time March 30, 2017 at 18:53 Initial Consult Date 03/31/17 [facility] of Consultation: [facility] Referring Provider: HUMZA JAIME MD 24 HR Interval Summary Free Text/Dictation ALL NOTED NO NEW EVENTS Exam/Review of Systems Vital Signs Vitals Vital Signs Date Time Temp Pulse Resp B/P Pulse Ox O2 Delivery O2 Flow Rate FiO2 04/13/17 20:51 98.3 61 20 143/75 97 04/11/17 00:00 Room Air Intake and Output 04/12/17 04/12/17 04/13/17 15:00 23:00 07:00 Intake Total 250 ml Output Total 90 ml 50 ml Balance -90 ml 200 ml Exam Constitutional: alert, frail, oriented, calm Psych: depression Neck: No jvd Respiratory: clear to auscultation, normal air movement Cardiovascular: regular rate and rhythm Gastrointestinal: other (right flank drainage bag x2 ), soft, tender Musculoskeletal: No nl gait and stance Neurological: FOOTWEAR SALES ASSOCIATE II-XII intact, nl mental status, nl speech Results Result Diagram: 04/13/17 0636 04/13/17 0636 Results 24 hrs Laboratory Tests Test 04/13/17 06:36 White Blood Count 14.1 H Red Blood Count 2.90 L Hemoglobin 8.7 L Hematocrit 27.3 L Mean Corpuscular Volume 94.1 Mean Corpuscular Hemoglobin 30.0 Mean Corpuscular Hemoglobin Concent 31.9 L Red Cell Distribution Width 20.4 H Platelet Count 249 Mean Platelet Volume 10.8 H Neutrophils % 85.0 H Lymphocytes % 9.4 L Monocytes % 4.2 Eosinophils % 0.6 Basophils % 0.1 Nucleated Red Blood Cells % 0.0 Neutrophils # 12.0 H Lymphocytes # 1.3 Monocytes # 0.6 Eosinophils # 0.1 Basophils # 0.0 Nucleated Red Blood Cells # 0.0 Sodium Level 137 Potassium Level 3.7 Chloride Level 100 Carbon Dioxide Level 28 Anion Gap 13 Blood Urea Nitrogen 15 Creatinine 0.53 L Glucose Level 89 Calcium Level 8.2 L Medications Medications Current Medications Ondansetron HCl (Zofran Inj) 4 mg Q6H PRN IV NAUSEA AND/OR VOMITING; Start at 19:30 Acetaminophen (Tylenol Tab) 650 mg Q6H PRN PO PAIN LEVEL 1-3 OR FEVER; Start at 19:30 Docusate Sodium (Colace) 100 mg Q12H PRN PO CONSTIPATION; Start 03/30/17 at 19: 30 Magnesium Hydroxide (Milk Of Mag) 30 ml DAILY PRN PO CONSTIPATION; Start at 19:30 Sodium Biphosphate/ Sodium Phosphate (Fleet Enema) 133 ml DAILY PRN [place] CONSTIPATION; Start 03/30/17 at 19:30 Pantoprazole 40 mg 40 mg DAILY@06 IV Last administered on 04/13/17t 05:20; Admin Dose 40 MG; Start 03/31/17 at 06:00 Piperacillin Sod/ Tazobactam Sod (Zosyn 3.375gm/ 100 ml (Pmx)) 100 ml @ 200 mls /hr Q6 IVPB Last administered on 04/13/17 17:11; Admin Dose 200 MLS/HR; Start 03/31/17 at 00:00 Hydralazine HCl (Apresoline) 10 mg Q6H PRN IV ELEVATED BLOOD PRESSURE; Start at 19:30 Nitroglycerin (Nitroglycerin (Sl Tab) 0.4 Mg) 1 tab Q5M PRN SL ANGINA; Start at 19:30 Hydromorphone HCl (Dilaudid MANAGER CONTENT) MG/HR CONTINUOUS R... Q4PCA IV Last administered on 04/13/17 05:00; Admin Dose 0.2 MG; Start 03/31/17 at 13:30 Potassium Chloride (Klor-Con 10) 10 meq BID PO Last administered on 04/13/17 22:14; Admin Dose 10 MEQ; Start 04/07/17 at 21:00 Escitalopram Oxalate (Lexapro) 20 mg DAILY PO Last administered on 04/13/17 09 :42; Admin Dose 20 MG; Start 04/11/17 at 09:00 Methylprednisolone Sodium Succinate (Solu-Medrol) 60 mg AM IV Last administered on 04/13/17 09:43; Admin Dose 60 MG; Start 04/11/17 at 09:00 Ketorolac Tromethamine (Toradol) 15 mg Q6H PRN IV PAIN Last administered on 22:14; Admin Dose 15 MG; Start 04/11/17 at 15:30; Stop 04/14/17 at 15:29 Nystatin (Nystatin Susp) 5 ml QID PO Last administered on 04/13/17 22:14; Admin Dose 5 ML; Start 04/13/17 at 18:00 KIN ESTEBAN MD April 13, 2017 23:22
[2017-04-14] VITALS (13 sets, daily range): BP systolic 91–142; BP diastolic 54–79; PULSE 48–74; RESP 17–20
[2017-04-14] MEDS: PIPER-TAZO 3.375 GM IV (PMX) 100 ML IVPB SCH ×4 (00:36→17:10)
[2017-04-14] MEDS: PANTOPRAZOLE 40 MG INJ IV SCH (05:57)
[2017-04-14] MEDS: KETOROLAC 15 MG INJ IV PRN (06:37)
[2017-04-14] MEDS: NYSTATIN SUSP 5 ML CUP PO SCH ×4 (08:06→21:51)
[2017-04-14] MEDS: ESCITALOPRAM 10 MG TAB PO SCH (08:06)
[2017-04-14] MEDS: METHYLPREDNISOLONE 125 MG INJ IV SCH (08:06)
[2017-04-14] MEDS: POTASSIUM CHLORIDE (SR) 10 MEQ TAB PO SCH ×2 (08:06→21:51)
--- NOTE | 2017-04-14 10:43 | PN ---
Date/Time of Note Date/Time of Note DATE: 04/14/17 TIME: 10:38 Assessment/Plan VTE Prophylaxis VTE Prophylaxis Intervention: ambulation Lines/Catheters IV Catheter Type (from Nrsg): Saline Lock Urinary Cath still in place: No Assessment/Plan Assessment/Plan Obstructive jaundice S/P PTBD 04/09/2017 S/P PTBD right biliary system 04/04/2017 S/P bile duct excision with cholecystectomy excision of extrahepatic duct,and Isabell en Y hepaticojejuniostomy sec to cholangiocarcinoma * Hematochezia/Anemia * History of proctocolectomy with J pouch 2005 * History of sigmoidoscopy 01/2017 moderate pouchitis,no evidence of malignancy * Intractable pain Plan * Continue present management * pain control Subjective 24 Hr Interval Summary Free Text/Dictation * Course reviewed with RN * Patient seen and examined * No leaked on drain Exam/Review of Systems Vital Signs Vitals Vital Signs Date Time Temp Pulse Resp B/P Pulse Ox O2 Delivery O2 Flow Rate FiO2 04/14/17 08:18 16 04/14/17 08:06 69 04/14/17 08:04 99.3 114/63 97 04/11/17 00:00 Room Air Intake and Output 04/13/17 04/13/17 04/14/17 15:00 23:00 07:00 Intake Total 100 ml 200 ml Output Total 30 ml Balance 70 ml 200 ml Exam Constitutional: alert, frail Neck: non-tender, supple Respiratory: clear to auscultation, normal air movement Cardiovascular: nl pulses, regular rate and rhythm Gastrointestinal: non-tender, soft Musculoskeletal: nl extremities to inspection, nl gait and stance Extremities: normal pulses Neurological: nl speech Skin: nl turgor Results Result Diagram: 04/13/1736 04/13/17635 Medications Medications Current Medications Ondansetron HCl (Zofran Inj) 4 mg Q6H PRN IV NAUSEA AND/OR VOMITING; Start at 19:30 Acetaminophen (Tylenol Tab) 650 mg Q6H PRN PO PAIN LEVEL 1-3 OR FEVER; Start at 19:30 Docusate Sodium (Colace) 100 mg Q12H PRN PO CONSTIPATION; Start 03/30/17 at 19: 30 Magnesium Hydroxide (Milk Of Mag) 30 ml DAILY PRN PO CONSTIPATION; Start at 19:30 Sodium Biphosphate/ Sodium Phosphate (Fleet Enema) 133 ml DAILY PRN [place] CONSTIPATION; Start 03/30/17 at 19:30 Pantoprazole 40 mg 40 mg DAILY@06 IV Last administered on 04/14/17 05:57; Admin Dose 40 MG; Start 03/31/17 at 06:00 Piperacillin Sod/ Tazobactam Sod (Zosyn 3.375gm/ 100 ml (Pmx)) 100 ml @ 200 mls /hr Q6 IVPB Last administered on 04/14/17 05:57; Admin Dose 200 MLS/HR; Start 03/31/17 at 00:00 Hydralazine HCl (Apresoline) 10 mg Q6H PRN IV ELEVATED BLOOD PRESSURE; Start at 19:30 Nitroglycerin (Nitroglycerin (Sl Tab) 0.4 Mg) 1 tab Q5M PRN SL ANGINA; Start at 19:30 Hydromorphone HCl (Dilaudid PEN MAKER) MG/HR CONTINUOUS R... Q4PCA IV Last administered on 04/13/17 05:00; Admin Dose 0.2 MG; Start 03/31/17 at 13:30 Potassium Chloride (Klor-Con 10) 10 meq BID PO Last administered on 04/14/17 08:06; Admin Dose 10 MEQ; Start 04/07/17 at 21:00 Escitalopram Oxalate (Lexapro) 20 mg DAILY PO Last administered on 04/14/17 08 :06; Admin Dose 20 MG; Start 04/11/17 at 09:00 Methylprednisolone Sodium Succinate (Solu-Medrol) 60 mg AM IV Last administered on 04/14/17 08:06; Admin Dose 60 MG; Start 04/11/17 at 09:00 Ketorolac Tromethamine (Toradol) 15 mg Q6H PRN IV PAIN Last administered on 06:37; Admin Dose 15 MG; Start 04/11/17 at 15:30; Stop 04/14/17 at 15:29 Nystatin (Nystatin Susp) 5 ml QID PO Last administered on 04/14/17 08:06; Admin Dose 5 ML; Start 04/13/17 at 18:00 BRAD PRADO MD April 14, 2017 10:43
--- NOTE | 2017-04-14 15:10 | PN ---
Date/Time of Note Date/Time of Note DATE: 04/14/17 TIME: 15:07 Assessment/Plan VTE Prophylaxis VTE Prophylaxis Intervention: SCD's Lines/Catheters [facility] Saline Lock Urinary Cath still in place: No Assessment/Plan Chief Complaint/Hosp Course 1. 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 Patient postop cholecystectomy and excision of extrahepatic CBD and Isabell-en-Y hepaticojejunostomy. Continue with analgesics. 2. History of chronic Crohn's disease status post proximal colectomy with J- pouch creation in 2005. Continue GI recommendations. 3. 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 Oncologist following. Further management for consideration of possible chemotherapy/radiation per oncologist. Unstable for chemo/radiation at this time 4. bradycardia. Asymptomatic present. Continue telemetry monitoring. 5. History of depression. Patient to be continued on Lexapro medication. no reports of suicidal ideation during visit 6. Noted failure to thrive. Encourage oral intake. 7. thromboycytopenia. Monitor for signs or symptoms of bleeding. 8. Lumbar fracture (L2). As evidenced per CT scan of the lumbar spine. cont with analgesics. tentative plan for [facility] (patient refusing at this time). Disposition and plan: cont supportive care and analgesics. continue on abx. transfer to med/surg if ok with surgeon Discussed plan of care with Dr. Sanz Problems: Subjective 24 Hr Interval Summary Free Text/Dictation resting at this time . no specific complaints Exam/Review of Systems Vital Signs Vitals Vital Signs Date Time Temp Pulse Resp B/P Pulse Ox O2 Delivery O2 Flow Rate FiO2 04/14/17 12:48 16 04/14/17 12:06 98.3 58 91/54 98 04/11/17 00:00 Room Air Intake and Output 04/13/17 04/13/17 04/14/17 14:59 22:59 06:59 Intake Total 100 ml 200 ml Output Total 30 ml Balance 70 ml 200 ml Exam Constitutional: alert, frail, oriented, calm Psych: depression Neck: No jvd Respiratory: clear to auscultation, normal air movement Cardiovascular: regular rate and rhythm Gastrointestinal: other (right flank drainage bag x2 ), soft, tender Musculoskeletal: No nl gait and stance Neurological: FLOW TRADER II-XII intact, nl mental status, nl speech Results Result Diagram: 04/13/1763504/13/17635 Medications Medications Current Medications Ondansetron HCl (Zofran Inj) 4 mg Q6H PRN IV NAUSEA AND/OR VOMITING; Start at 19:30 Acetaminophen (Tylenol Tab) 650 mg Q6H PRN PO PAIN LEVEL 1-3 OR FEVER; Start at 19:30 Docusate Sodium (Colace) 100 mg Q12H PRN PO CONSTIPATION; Start 03/30/17 at 19: 30 Magnesium Hydroxide (Milk Of Mag) 30 ml DAILY PRN PO CONSTIPATION; Start at 19:30 Sodium Biphosphate/ Sodium Phosphate (Fleet Enema) 133 ml DAILY PRN [place] CONSTIPATION; Start 03/30/17 at 19:30 Pantoprazole 40 mg 40 mg DAILY@06 IV Last administered on 04/14/17 05:57; Admin Dose 40 MG; Start 03/31/17 at 06:00 Piperacillin Sod/ Tazobactam Sod (Zosyn 3.375gm/ 100 ml (Pmx)) 100 ml @ 200 mls /hr Q6 IVPB Last administered on 04/14/17 11:44; Admin Dose 200 MLS/HR; Start 03/31/17 at 00:00 Hydralazine HCl (Apresoline) 10 mg Q6H PRN IV ELEVATED BLOOD PRESSURE; Start at 19:30 Nitroglycerin (Nitroglycerin (Sl Tab) 0.4 Mg) 1 tab Q5M PRN SL ANGINA; Start at 19:30 Hydromorphone HCl (Dilaudid STAINING MACHINE OPERATOR) MG/HR CONTINUOUS R... Q4PCA IV Last administered on 04/13/17 05:00; Admin Dose 0.2 MG; Start 03/31/17 at 13:30 Potassium Chloride (Klor-Con 10) 10 meq BID PO Last administered on 04/14/17 08:06; Admin Dose 10 MEQ; Start 04/07/17 at 21:00 Escitalopram Oxalate (Lexapro) 20 mg DAILY PO Last administered on 04/14/17 08 :06; Admin Dose 20 MG; Start 04/11/17 at 09:00 Methylprednisolone Sodium Succinate (Solu-Medrol) 60 mg AM IV Last administered on 04/14/17 08:06; Admin Dose 60 MG; Start 04/11/17 at 09:00 Ketorolac Tromethamine (Toradol) 15 mg Q6H PRN IV PAIN Last administered on 06:37; Admin Dose 15 MG; Start 04/11/17 at 15:30; Stop 04/14/17 at 15:29 Nystatin (Nystatin Susp) 5 ml QID PO Last administered on 04/14/17 12:47; Admin Dose 5 ML; Start 04/13/17 at 18:00 CANDIS MARIE April 14, 2017 15:10
--- NOTE | 2017-04-14 15:56 | CONS ---
Date/Time of Note Date/Time of Note DATE: 04/14/17 TIME: 15:56 Assessment/Plan Assessment/Plan Chief Complaint/Hosp Course 1. 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 postop , NOW WITH Metastatic dis in the liver lobular area of elevated T2 signal is seen in the central liver worrisome for a mass possibly cholangiocarcinoma and this causes prominent intrahepatic biliary ductal dilatation of both the left and right intrahepatic biliary ducts with central loss of signal at the area of the mass. CT and MRI- REVIEWED TUMOR MARKERS : ca 19-9 1420 , c/w to tumor progression hepatobiliary consult noted- D/W D LEÓN POST drain placement in the right lobe of the liver- c/w abscess POST stenting across the anastomosis with IR. PTBD LFT - noted 2. Obstructive jaundice. Stable, ro stricture/recurrent tumor. MRCP/GI eval, hepatobiliary surgery consult- REVIEWED surgical f-up Dr Anderson noted POST biliary drainage by interventional radiology 3. Chronic Crohn's disease status post total proctocolectomy with J-pouch creation 2005. 4. Chronic primary sclerosing cholangitis w cholangiocarcinoma. Needs advanced care planning evaluated. Poor prognosis. Performance status questionable at this time for chemotherapy & bilirubin needs some improvement. 5. Malnutrition; oral feeds/Megace vs TPN 6. Active pouchitis? 7. Postop day 16 bd excision w cholecystectomy, excision of extrahepatic cbd and Isabell-en-Y hepaticojejunostomy. 8. Failure to thrive, may need snf 9. Anemia- WILL TRANSFUSE PRBC PRN 10. Reactive thrombocytosis 11. Dyslipidemia. POOR PS Problems: Consultation Date/Type/Reason Admit Date/Time March 30, 2017 at 18:53 Initial Consult Date 03/31/17 Type of Consultation: [facility] Referring Provider: HUMZA JAIME MD 24 HR Interval Summary Free Text/Dictation no new events Exam/Review of Systems Vital Signs Vitals Vital Signs Date Time Temp Pulse Resp B/P Pulse Ox O2 Delivery O2 Flow Rate FiO2 04/14/17 12:48 16 04/14/17 12:06 98.3 58 91/54 98 04/11/17 00:00 Room Air Intake and Output 04/13/17 04/13/17 04/14/17 15:00 23:00 07:00 Intake Total 100 ml 200 ml Output Total 30 ml Balance 70 ml 200 ml Exam Constitutional: alert, frail, oriented, calm Psych: depression Neck: No jvd Respiratory: clear to auscultation, normal air movement Cardiovascular: regular rate and rhythm Gastrointestinal: other (right flank drainage bag x2 ), soft, tender Musculoskeletal: No nl gait and stance Neurological: ELECTRIC CELL TENDER II-XII intact, nl mental status, nl speech Results Result Diagram: 04/13/1763504/13/17635 Medications Medications Current Medications Ondansetron HCl (Zofran Inj) 4 mg Q6H PRN IV NAUSEA AND/OR VOMITING; Start at 19:30 Acetaminophen (Tylenol Tab) 650 mg Q6H PRN PO PAIN LEVEL 1-3 OR FEVER; Start at 19:30 Docusate Sodium (Colace) 100 mg Q12H PRN PO CONSTIPATION; Start 03/30/17 at 19: 30 Magnesium Hydroxide (Milk Of Mag) 30 ml DAILY PRN PO CONSTIPATION; Start at 19:30 Sodium Biphosphate/ Sodium Phosphate (Fleet Enema) 133 ml DAILY PRN [place] CONSTIPATION; Start 03/30/17 at 19:30 Pantoprazole 40 mg 40 mg DAILY@06 IV Last administered on 04/14/17 05:57; Admin Dose 40 MG; Start 03/31/17 at 06:00 Piperacillin Sod/ Tazobactam Sod (Zosyn 3.375gm/ 100 ml (Pmx)) 100 ml @ 200 mls /hr Q6 IVPB Last administered on 04/14/17 11:44; Admin Dose 200 MLS/HR; Start 03/31/17 at 00:00 Hydralazine HCl (Apresoline) 10 mg Q6H PRN IV ELEVATED BLOOD PRESSURE; Start at 19:30 Nitroglycerin (Nitroglycerin (Sl Tab) 0.4 Mg) 1 tab Q5M PRN SL ANGINA; Start at 19:30 Hydromorphone HCl (Dilaudid DIGESTER HAND) MG/HR CONTINUOUS R... Q4PCA IV Last administered on 04/13/17 05:00; Admin Dose 0.2 MG; Start 03/31/17 at 13:30 Potassium Chloride (Klor-Con 10) 10 meq BID PO Last administered on 04/14/17 08:06; Admin Dose 10 MEQ; Start 04/07/17 at 21:00 Escitalopram Oxalate (Lexapro) 20 mg DAILY PO Last administered on 04/14/17 08 :06; Admin Dose 20 MG; Start 04/11/17 at 09:00 Methylprednisolone Sodium Succinate (Solu-Medrol) 60 mg AM IV Last administered on 04/14/17 08:06; Admin Dose 60 MG; Start 04/11/17 at 09:00 Nystatin (Nystatin Susp) 5 ml QID PO Last administered on 04/14/17 12:47; Admin Dose 5 ML; Start 04/13/17 at 18:00 KIN ESTEBAN MD April 14, 2017 15:56
[2017-04-14] MEDS: HYDROmorphONE 0.2 MG/ML PCA IV SCH (18:13)
[2017-04-15] VITALS (10 sets, daily range): BP systolic 92–125; BP diastolic 50–68; PULSE 55–74; RESP 18–20
[2017-04-15] MEDS: PIPER-TAZO 3.375 GM IV (PMX) 100 ML IVPB SCH ×4 (01:26→18:29)
[2017-04-15] MEDS: PANTOPRAZOLE 40 MG INJ IV SCH (06:20)
[2017-04-15] MEDS: METHYLPREDNISOLONE 125 MG INJ IV SCH (10:04)
[2017-04-15] MEDS: POTASSIUM CHLORIDE (SR) 10 MEQ TAB PO SCH ×3 (10:04→21:43)
[2017-04-15] MEDS: NYSTATIN SUSP 5 ML CUP PO SCH ×4 (10:07→21:43)
[2017-04-15] MEDS: ESCITALOPRAM 10 MG TAB PO SCH (10:07)
--- NOTE | 2017-04-15 13:18 | PN ---
Date/Time of Note Date/Time of Note DATE: 04/15/17 TIME: 13:16 Assessment/Plan VTE Prophylaxis VTE Prophylaxis Intervention: SCD's Lines/Catheters IV Catheter Type (from Nrsg): Saline Lock Urinary Cath still in place: No Assessment/Plan Assessment/Plan Obstructive jaundice S/P PTBD 04/09/2017 S/P PTBD right biliary system 04/04/2017 S/P bile duct excision with cholecystectomy excision of extrahepatic duct,and Isabell en Y hepaticojejuniostomy sec to cholangiocarcinoma * Hematochezia resolved * History of proctocolectomy with J pouch 2005 * History of sigmoidoscopy 01/2017 moderate pouchitis,no evidence of malignancy * Intractable pain Plan * Continue present management * pain control Subjective 24 Hr Interval Summary Free Text/Dictation * Course reviewed wit RN * No complaints * No leak on biliary drainage Exam/Review of Systems Vital Signs Vitals Vital Signs Date Time Temp Pulse Resp B/P Pulse Ox O2 Delivery O2 Flow Rate FiO2 04/15/17 12:23 74 04/15/17 08:00 18 04/15/17 07:51 98.5 125/67 98 Intake and Output 04/14/17 04/14/17 04/15/17 14:59 22:59 06:59 Intake Total 200 ml 1150 ml 600 ml Output Total 30 ml 20 ml 50 ml Balance 170 ml 1130 ml 550 ml Exam Constitutional: alert, frail Neck: non-tender, supple Respiratory: clear to auscultation, normal air movement Cardiovascular: nl pulses, regular rate and rhythm Gastrointestinal: non-tender, soft Musculoskeletal: nl extremities to inspection Extremities: normal pulses Neurological: nl mental status, nl speech Skin: nl turgor Results Result Diagram: 04/13/1736 04/13/1736 Medications Medications Current Medications Ondansetron HCl (Zofran Inj) 4 mg Q6H PRN IV NAUSEA AND/OR VOMITING; Start at 19:30 Acetaminophen (Tylenol Tab) 650 mg Q6H PRN PO PAIN LEVEL 1-3 OR FEVER; Start at 19:30 Docusate Sodium (Colace) 100 mg Q12H PRN PO CONSTIPATION; Start 03/30/17 at 19: 30 Magnesium Hydroxide (Milk Of Mag) 30 ml DAILY PRN PO CONSTIPATION; Start at 19:30 Sodium Biphosphate/ Sodium Phosphate (Fleet Enema) 133 ml DAILY PRN [place] CONSTIPATION; Start 03/30/17 at 19:30 Pantoprazole 40 mg 40 mg DAILY@06 IV Last administered on 04/15/17 06:20; Admin Dose 40 MG; Start 03/31/17 at 06:00 Piperacillin Sod/ Tazobactam Sod (Zosyn 3.375gm/ 100 ml (Pmx)) 100 ml @ 200 mls /hr Q6 IVPB Last administered on 04/15/17 13:06; Admin Dose 200 MLS/HR; Start 03/31/17 at 00:00 Hydralazine HCl (Apresoline) 10 mg Q6H PRN IV ELEVATED BLOOD PRESSURE; Start at 19:30 Nitroglycerin (Nitroglycerin (Sl Tab) 0.4 Mg) 1 tab Q5M PRN SL ANGINA; Start at 19:30 Hydromorphone HCl (Dilaudid CHURCH ORGANIST) MG/HR CONTINUOUS R... Q4PCA IV Last administered on 04/14/17 18:13; Admin Dose 6 MG; Start 03/31/17 at 13:30 Potassium Chloride (Klor-Con 10) 10 meq BID PO Last administered on 04/15/17 10:04; Admin Dose 10 MEQ; Start 04/07/17 at 21:00 Escitalopram Oxalate (Lexapro) 20 mg DAILY PO Last administered on 04/15/17 10 :07; Admin Dose 20 MG; Start 04/11/17 at 09:00 Methylprednisolone Sodium Succinate (Solu-Medrol) 60 mg AM IV Last administered on 04/15/17 10:04; Admin Dose 60 MG; Start 04/11/17 at 09:00 Nystatin (Nystatin Susp) 5 ml QID PO Last administered on 04/15/17 13:06; Admin Dose 5 ML; Start 04/13/17 at 18:00 BRAD PRADO MD April 15, 2017 13:18
--- NOTE | 2017-04-15 15:33 | CONS ---
Date/Time of Note Date/Time of Note DATE: 04/15/17 TIME: 15:32 Assessment/Plan Assessment/Plan Chief Complaint/Hosp Course ID PROGRESS NOTE CURRENT ABX: ANTIMICROBIALS: Zosyn . 24H INTERVAL SUMMARY * No new issues, was started on po Nystatin for c/o mouth pain * Multiple stools -- this is normal for him due to "J-pouch" -- C.Diff (-) on * MICROBIOLOGY: Fluid culture growing Bacteroides fragilis and Klebsiella pneumoniae susceptible essentially to all antibiotics. Stool for C. diff came back negative. Blood cultures have been negative since admission. * RECENT HX: Obstructive jaundice S/P PTBD 04/09/2017 S/P PTBD right biliary system 04/04/2017 S/P bile duct excision with cholecystectomy excision of extrahepatic duct,and Isabell en Y hepaticojejuniostomy sec to cholangiocarcinoma . ------ PHYSICAL EXAMINATION: VITAL SIGNS: Afebrile, VSS, NAD GENERAL:Cachetic HEENT: Unremarkable LUNGS: Equal chest rise without dyspnea on observation HEART: RRR ABDOMEN: Soft, ABD drains x2 green bilious EXTREMITIES: Warm SKIN: No diaphoresis ID IMPRESSION: 61 yo M admit with: 1. Systemic inflammatory response syndrome secondary to intraabdominal infection and possibly secondary to steroids. * Leukocytosis downtrend 2. Biliary obstruction status post fluoroscopic-guided biliary drainage catheter placement on 04/09/2014 with culture growing Klebsiella pneumoniae and Bacteroides fragilis. 3. History of ulcerative colitis status post total proctocolectomy and ileoanal pouch. 4. History of primary sclerosing cholangitis since 2008. 5. Metastatic cholangiocarcinoma to lymph nodes and liver. 6. Cachexia. (-) MRSA Nares INVASIVES: PIV CURRENT ABX: Zosyn #15 ID RECOMMENDATION 1. Continue current ABX & supportive care. . Problems: Consultation Date/Type/Reason Admit Date/Time March 30, 2017 at 18:53 Initial Consult Date 03/31/17 Type of Consultation: ID Referring Provider: HUMZA JAIME MD Exam/Review of Systems Vital Signs Vitals Vital Signs Date Time Temp Pulse Resp B/P Pulse Ox O2 Delivery O2 Flow Rate FiO2 04/15/17 12:23 74 04/15/17 08:00 18 04/15/17 07:51 98.5 125/67 98 Intake and Output 04/14/17 04/14/17 04/15/17 15:00 23:00 07:00 Intake Total 200 ml 1150 ml 600 ml Output Total 30 ml 20 ml 50 ml Balance 170 ml 1130 ml 550 ml Results Result Diagram: 04/13/1736 04/13/17 0636 Medications Medications Current Medications Ondansetron HCl (Zofran Inj) 4 mg Q6H PRN IV NAUSEA AND/OR VOMITING; Start at 19:30 Acetaminophen (Tylenol Tab) 650 mg Q6H PRN PO PAIN LEVEL 1-3 OR FEVER; Start at 19:30 Docusate Sodium (Colace) 100 mg Q12H PRN PO CONSTIPATION; Start 03/30/17 at 19: 30 Magnesium Hydroxide (Milk Of Mag) 30 ml DAILY PRN PO CONSTIPATION; Start at 19:30 Sodium Biphosphate/ Sodium Phosphate (Fleet Enema) 133 ml DAILY PRN HI CONSTIPATION; Start 03/30/17 at 19:30 Pantoprazole 40 mg 40 mg DAILY@06 IV Last administered on 04/15/17 06:20; Admin Dose 40 MG; Start 03/31/17 at 06:00 Piperacillin Sod/ Tazobactam Sod (Zosyn 3.375gm/ 100 ml (Pmx)) 100 ml @ 200 mls /hr Q6 IVPB Last administered on 04/15/17 13:06; Admin Dose 200 MLS/HR; Start 03/31/17 at 00:00 Hydralazine HCl (Apresoline) 10 mg Q6H PRN IV ELEVATED BLOOD PRESSURE; Start at 19:30 Nitroglycerin (Nitroglycerin (Sl Tab) 0.4 Mg) 1 tab Q5M PRN SL ANGINA; Start at 19:30 Hydromorphone HCl (Dilaudid HEAD OF SALES) MG/HR CONTINUOUS R... Q4PCA IV Last administered on 04/14/17 18:13; Admin Dose 6 MG; Start 03/31/17 at 13:30 Potassium Chloride (Klor-Con 10) 10 meq BID PO Last administered on 04/15/17 10:04; Admin Dose 10 MEQ; Start 04/07/17 at 21:00 Escitalopram Oxalate (Lexapro) 20 mg DAILY PO Last administered on 04/15/17 10 :07; Admin Dose 20 MG; Start 04/11/17 at 09:00 Methylprednisolone Sodium Succinate (Solu-Medrol) 60 mg AM IV Last administered on 04/15/17 10:04; Admin Dose 60 MG; Start 04/11/17 at 09:00 Nystatin (Nystatin Susp) 5 ml QID PO Last administered on 04/15/17 13:06; Admin Dose 5 ML; Start 04/13/17 at 18:00 OCTAVIA CASH NP April 15, 2017 15:33
--- NOTE | 2017-04-15 15:36 | PN ---
DATE: 04/15/2017 CARDIOLOGY FOLLOWUP SUBJECTIVE: Discussed with the staff and discussed with the parents. The patient remains in sinus rhythm, sinus bradycardia, heart rate has improved. No chest pain or pressure, no syncope. Complai ns of overall weakness. MEDICATIONS: Reviewed. PHYSICAL EXAMINATION: VITAL SIGNS: Temperature 98, heart rate of 70, blood pressure 127/67, respiration 18. HEENT: Normocephalic, atraumatic. Thin, cachectic gentleman. Jaundice looking. Eyes are jaundice. CARDIOVASCULAR: Regular rate and rhythm. PULMONARY: No wheezes now. GASTROINTESTINAL: Soft, mild tenderness to palpation right side. EXTREMITIES: No significant edema. NEUROLOGIC: Awake and alert. PSYCHIATRIC: Appears to be calm. LABORATORY: WBC of 14.1, hemoglobin 8.7. Platelets 249. Sodium 137, potassium 3.7, BUN 15, creati nine 0.52, glucose 89. ASSESSMENT AND PLAN: 1. Sick sinus syndrome, marked sinus bradycardia, asymptomatic. We will continue to monitor. 2. History of metastatic cholangiocarcinoma 3. History of Crohn disease. 4. Jaundice. 5. Depression. 6. Failure to thrive. 7. Thrombocytopenia. RECOMMENDATIONS: Continue conservative care from the cardiac standpoint. Follow up with surgical r ecommendations. Dictated By: POOJA BISHOP/JASMYNE Conf#: [id number] DID#: [id number]
--- NOTE | 2017-04-15 18:29 | PN ---
DATE: 04/15/2017 TIME OF EVALUATION: 5:30 p.m. SUBJECTIVE DATA: Pain well controlled with LOG SAWYER. Complains of being extremely hungry. OBJECTIVE DATA: VITAL SIGNS: Temperature 98.5, pulse rate 66, respiratory rate 19, blood pressure 92/50, oxygen saturation 97% on room air. GENERAL: This is a frail-looking male patient lying in bed in no apparent distress. HEENT: Head normocephalic and atraumatic. Eyes: Anicteric sclerae. Conjunctivae clear. ENT: Nasal septum is midline. Oral mucosa is dry. NECK: Supple. No JVD noticed. RESPIRATORY: Bilaterally clear to auscultation. No adventitious breath sounds. No use of accessory muscles of respiration. CARDIAC: Regular rate and rhythm with a systolic murmur. ABDOMEN: Soft and nondistended. Incisions clean, dry and intact. Right biliary drain with purulent drainage. Left biliary drain with pleural lung fluid. GENITOURINARY: Deferred. EXTREMITIES: No cyanosis, no clubbing, no edema. Peripheral pulses palpable. NEUROLOGIC: The patient is awake, alert and oriented. Cranial nerves are grossly intact. LABORATORY AND DIAGNOSTIC DATA: None for today. ASSESSMENT AND PLAN: 1. Metastatic cholangiocarcinoma with metastasis to the liver and lymph nodes. Status post cholecystectomy and excision of hepatic common bile duct with Isabell -en-Y hepaticojejunostomy on 01/24/2017. The patient being followed by oncology. Poor prognosis. 2. History of Crohn's disease status post a proctocolectomy with J-pouch creation in 2005. 3. History of chronic primary sclerosing cholangitis. 4. Sinus bradycardia, asymptomatic. Cardiology following. 5. Chronic back pain. Lumbar spine CT showing osteopenia with mild L2 compression fracture. Continue on analgesics. 6. Protein calorie malnutrition. Severe. Dietary supplements. 7. Normocytic normochromic anemia, most probably anemia of chronic disease. Monitor H and H closely. 8. Depression. Continue Lexapro. 9. Status post placement of left biliary drain on 04/09/2017. Continue management as per surgery. 10. Status post placement of a right biliary drain on 03/24/2017, management as per surgery. On antibiotics as per infectious disease. 11. Fluid, electrolytes and nutrition. Soft diet. 11. DVT prophylaxis with bilateral sequential compression devices. 12. Gastrointestinal prophylaxis. Proton pump inhibitors intervention planned. Plan. Continue current management. Await further recommendations from consultants. The case was discussed with Dr. Cosme. LINDA COSME MD, AM/JASMYNE Conf#: [id number] DID#: [id number] MTDD
--- NOTE | 2017-04-15 23:51 | CONS ---
Date/Time of Note Date/Time of Note DATE: 04/15/17 TIME: 23:50 Assessment/Plan Assessment/Plan Chief Complaint/Hosp Course 1. 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 postop , NOW WITH Metastatic dis in the liver lobular area of elevated T2 signal is seen in the central liver worrisome for a mass possibly cholangiocarcinoma and this causes prominent intrahepatic biliary ductal dilatation of both the left and right intrahepatic biliary ducts with central loss of signal at the area of the mass. CT and MRI- REVIEWED TUMOR MARKERS : ca 19-9 1420 , c/w to tumor progression hepatobiliary consult noted- D/W D LEÓN POST drain placement in the right lobe of the liver- c/w abscess POST stenting across the anastomosis with IR. PTBD LFT - noted 2. Obstructive jaundice. Stable, ro stricture/recurrent tumor. MRCP/GI eval, hepatobiliary surgery consult- REVIEWED surgical f-up Dr Anderson noted POST biliary drainage by interventional radiology 3. Chronic Crohn's disease status post total proctocolectomy with J-pouch creation 2005. 4. Chronic primary sclerosing cholangitis w cholangiocarcinoma. Needs advanced care planning evaluated. Poor prognosis. Performance status questionable at this time for chemotherapy & bilirubin needs some improvement. 5. Malnutrition; oral feeds/Megace vs TPN 6. Active pouchitis? 7. Postop day 16 bd excision w cholecystectomy, excision of extrahepatic cbd and Isabell-en-Y hepaticojejunostomy. 8. Failure to thrive, may need snf 9. Anemia- WILL TRANSFUSE PRBC PRN 10. Reactive thrombocytosis 11. Dyslipidemia. POOR PS Problems: Consultation Date/Type/Reason Admit Date/Time March 30, 2017 at 18:53 Initial Consult Date 03/31/17 Type of Consultation: [facility] Referring Provider: HUMZA JAIME MD 24 HR Interval Summary Free Text/Dictation all noted no new events Exam/Review of Systems Vital Signs Vitals Vital Signs Date Time Temp Pulse Resp B/P Pulse Ox O2 Delivery O2 Flow Rate FiO2 04/15/17 20:28 60 04/15/17 20:00 16 04/15/17 19:58 98.7 111/68 99 Intake and Output 04/14/17 04/14/17 04/15/17 15:00 23:00 07:00 Intake Total 200 ml 1150 ml 600 ml Output Total 30 ml 20 ml 50 ml Balance 170 ml 1130 ml 550 ml Exam Constitutional: alert, frail, oriented, calm Psych: depression Neck: No jvd Respiratory: clear to auscultation, normal air movement Cardiovascular: regular rate and rhythm Gastrointestinal: other (right flank drainage bag x2 ), soft, tender Musculoskeletal: No nl gait and stance Neurological: OWNER SPA DIRECTOR II-XII intact, nl mental status, nl speech Results Result Diagram: 04/13/1763504/13/17635 Medications Medications Current Medications Ondansetron HCl (Zofran Inj) 4 mg Q6H PRN IV NAUSEA AND/OR VOMITING; Start at 19:30 Acetaminophen (Tylenol Tab) 650 mg Q6H PRN PO PAIN LEVEL 1-3 OR FEVER; Start at 19:30 Docusate Sodium (Colace) 100 mg Q12H PRN PO CONSTIPATION; Start 03/30/17 at 19: 30 Magnesium Hydroxide (Milk Of Mag) 30 ml DAILY PRN PO CONSTIPATION; Start at 19:30 Sodium Biphosphate/ Sodium Phosphate (Fleet Enema) 133 ml DAILY PRN ND CONSTIPATION; Start 03/30/17 at 19:30 Pantoprazole 40 mg 40 mg DAILY@06 IV Last administered on 04/15/17 06:20; Admin Dose 40 MG; Start 03/31/17 at 06:00 Piperacillin Sod/ Tazobactam Sod (Zosyn 3.375gm/ 100 ml (Pmx)) 100 ml @ 200 mls /hr Q6 IVPB Last administered on 04/15/17 18:29; Admin Dose 200 MLS/HR; Start 03/31/17 at 00:00 Hydralazine HCl (Apresoline) 10 mg Q6H PRN IV ELEVATED BLOOD PRESSURE; Start at 19:30 Nitroglycerin (Nitroglycerin (Sl Tab) 0.4 Mg) 1 tab Q5M PRN SL ANGINA; Start at 19:30 Hydromorphone HCl (Dilaudid FOOT CUTTER) MG/HR CONTINUOUS R... Q4PCA IV Last administered on 04/14/17 18:13; Admin Dose 6 MG; Start 03/31/17 at 13:30 Potassium Chloride (Klor-Con 10) 10 meq BID PO Last administered on 04/15/17 10:04; Admin Dose 10 MEQ; Start 04/07/17 at 21:00 Escitalopram Oxalate (Lexapro) 20 mg DAILY PO Last administered on 04/15/17 10 :07; Admin Dose 20 MG; Start 04/11/17 at 09:00 Methylprednisolone Sodium Succinate (Solu-Medrol) 60 mg AM IV Last administered on 04/15/17 10:04; Admin Dose 60 MG; Start 04/11/17 at 09:00 Nystatin (Nystatin Susp) 5 ml QID PO Last administered on 04/15/17 21:43; Admin Dose 5 ML; Start 04/13/17 at 18:00 KIN ESTEBAN MD April 15, 2017 23:51
[2017-04-16] VITALS (13 sets, daily range): BP systolic 102–117; BP diastolic 58–79; PULSE 44–62; RESP 16–20
[2017-04-16] MEDS: PIPER-TAZO 3.375 GM IV (PMX) 100 ML IVPB SCH ×5 (00:11→23:57)
[2017-04-16] MEDS: HYDROmorphONE 0.2 MG/ML PCA IV SCH (00:11)
[2017-04-16] MEDS: PANTOPRAZOLE 40 MG INJ IV SCH (06:44)
[2017-04-16] MEDS: NYSTATIN SUSP 5 ML CUP PO SCH ×4 (08:47→21:08)
[2017-04-16] MEDS: POTASSIUM CHLORIDE (SR) 10 MEQ TAB PO SCH ×2 (08:48→21:00)
[2017-04-16] MEDS: METHYLPREDNISOLONE 125 MG INJ IV SCH (08:48)
[2017-04-16] MEDS: ESCITALOPRAM 10 MG TAB PO SCH (08:48)
[2017-04-16 09:43] LABS: ADD SCAN DIFF NO
--- NOTE | 2017-04-16 09:45 | PN ---
DATE: 04/12/2017 CARDIOLOGY FOLLOWUP PROGRESS NOTE SUBJECTIVE: Discussed with the staff. Rhythm strip was reviewed. The patient remains in marked br adycardia still, but no syncope, no presyncope, no long pauses. MEDICATIONS: Reviewed. PHYSICAL EXAMINATION: VITAL SIGNS: Temperature 97.6, heart rate of 49, blood pressure 104/65, respiration rate of 18. HEENT: Normocephalic, atraumatic. Thin, cachectic gentleman. Pupils are equal, but appeared to be jaundiced. CARDIOVASCULAR: Bradycardic, systolic murmur. PULMONARY: No wheezes or rhonchi. GASTROINTESTINAL: Status post drain in place, mild tenderness to palpation. EXTREMITIES: With trivial lower extremity edema. NEUROLOGIC: Awake and alert. LABORATORY: WBC of 16.3, hemoglobin 9.1, platelets of 275. Sodium 137, potassium 3.7, BUN of 17, c reatinine 0.57, glucose 75. Chest x-ray shows questionable infiltrate, pleural effusion. No defini te evidence of acute cardiopulmonary disease. ASSESSMENT AND PLAN: 1. Marked sick sinus syndrome, marked sinus bradycardia does not appear to be related to any sympto ms at this point. 2. Metastatic cholangiocarcinoma. 3. Status post abdominal surgery. 4. History of Crohn disease. 5. Sclerosing cholangitis with cholangiocarcinoma. 6. Failure to thrive. 7. Malnutrition. 8. Thrombocytopenia. RECOMMENDATIONS: We will continue with supportive care. Code status is DNR. No further cardiac wo rkup at this point is recommended, given his multiple comorbidities. Will follow up p.r.n. Dictated By: POOJA CHAVEZ MD AV/JASMYNE Conf#: [id number] DID#: [id number] CC: CANDIS MARIE NP;*EndCC*
[2017-04-16 09:55] LABS: BASOPHILS % 0.1 % (0.0-2.0); EOSINOPHILS # 0.1 10^3/ul (0.0-0.5); EOSINOPHILS % 0.4 % (0.0-7.0); HEMATOCRIT 29.3 % (42.0-52.0); HEMOGLOBIN 9.1 g/dl (14.0-18.0); LYMPHOCYTES % 5.4 % (15.0-51.0); MEAN CORPUSCULAR HEMOGLOBIN 29.8 pg (29.0-33.0); MEAN CORPUSCULAR HGB CONC 31.1 g/dl (32.0-37.0); MEAN CORPUSCULAR VOLUME 96.1 fl (82.0-101.0); MEAN PLATELET VOLUME 10.2 fl (7.4-10.4); MONOCYTE # 0.6 10^3/ul (0.3-0.9); MONOCYTES % 3.5 % (0.0-11.0); NEUTROPHIL # 16.7 10^3/ul (1.6-7.5); NEUTROPHILS % 89.9 % (39.0-77.0); PLATELET COUNT 318 10^3/UL (140-415); RED BLOOD COUNT 3.05 10^6/ul (4.70-6.10); RED CELL DISTRIBUTION WIDTH 20.6 % (11.5-14.5); WHITE BLOOD COUNT 18.5 10^3/ul (4.8-10.8)
[2017-04-16 10:07] LABS: POTASSIUM 4.4 mmol/L (3.5-5.1)
[2017-04-16 10:08] LABS: MAGNESIUM 1.8 mg/dl (1.7-2.5); PHOSPHORUS 1.9 mg/dl (2.5-4.9)
[2017-04-16 10:09] LABS: CREATININE 0.52 mg/dl (0.61-1.24)
[2017-04-16 10:10] LABS: CALCIUM 8.6 mg/dl (8.4-10.2)
[2017-04-16 12:16] LABS: INR 1.41; PROTIME 17.3 Sec (12.2-14.2); PT RATIO 1.4
[2017-04-16 12:17] LABS: PARTIAL THROMBOPLASTIN TIME 29.2 Sec (25.0-35.0)
[2017-04-16 12:23] LABS: ALBUMIN 2.9 g/dl (3.3-4.9); ALBUMIN/GLOBULIN RATIO 0.7; BILIRUBIN,DIRECT 1.6 mg/dl (0.00-0.20); BILIRUBIN,INDIRECT 1.1 mg/dl (0-1.1); BILIRUBIN,TOTAL 2.7 mg/dl (0.2-1.3); CALCIUM 8.5 mg/dl (8.4-10.2); CREATININE 0.48 mg/dl (0.61-1.24); POTASSIUM 3.9 mmol/L (3.5-5.1)
--- NOTE | 2017-04-16 13:25 | PN ---
Date/Time of Note Date/Time of Note DATE: 04/16/17 TIME: 13:20 Assessment/Plan Lines/Catheters IV Catheter Type (from Nrsg): Peripheral IV Andrews in Place (from Nrsg): No Assessment/Plan Assessment/Plan [facility] Progress Note Date of Service: 04/16/17 Today's Impression & Plan: Overall stable. No new issues. Significant continued improvement in LFT's. WBC rise noted, but clinically not worsened. Will need 2-3 weeks of medical stability to establish patient's baseline and then decide on how aggressively to treat the rest of the cholangiocarcinoma. Discussed and reviewed with maribell and his sister with more than 20 minutes at bedside. Also discussed with team, including Dr. Hinds. With above assessment, I've recommended the following for today: 1. Continued aggressive medical management with broad spec antimicrobials with plans to start weaning him off the antimicrobials once WBC normal for more than 48 hrs 2. Aggressive nutritional support with increased oral intake. 3. Labs in am including LFT's 4. Drains to gravity drainage 5. Maximize antidepressants 6. Continued supportive care management 7. Continue Toradol for back pain 8. Assisted activity with education on how to deal with his back 9. F/u on culture results and do more cultures if indicated clinically (still at risk for ongoing cholangitis, UTI, pneumonia, etc.) Thank you again for your great care of this very pleasant patient and wonderful family. If there are any questions, please feel free to call me at [phone]. TOTAL VISIT TIME: 20 minutes of which more than half was spent in [id number] discussion with the patient, possibly including family, as well as coordination of care between multiple physicians and providers. Disclaimer: Inadvertent spelling or grammatical errors are likely due to EHR/ dictation software use and do not reflect on the overall quality of patient care. Updated clinical summary: A very pleasant 61-year-old gentleman with significant past medical history including ulcerative colitis status post total proctocolectomy and ileoanal pouch as well as a number of other medical issues who was diagnosed with cholangiocarcinoma and underwent a radical bile duct resection that included extrahepatic bile duct and gallbladder at [facility], 2016, with final diagnosis of cholangiocarcinoma with 1/8 lymph node positive disease as well as low-grade dysplasia and carcinoma in situ at the proximal margin. The patient was readmitted to [facility] after a 2 month hospital stay at [facility] with increasing weakness, jaundice, and diffuse body pain. S/p perc drainage of right biliary system 04/03/17. : s/p placement of left biliary drain which traverses patient's anastomosis on that side. Right system has a tight anastomosis that could not be traversed. R biliary drain upsized 04/12/17. COMORBIDITIES: 1. History of ulcerative colitis status post total proctocolectomy and ileoanal pouch. 2. Diagnosis of primary sclerosing cholangitis since 2008 being cared for at various institutions such as [facility] and by various physicians with involvement of Dr. Krystian Adkins for hepatology. 3. History of hospitalization at [facility] for bile duct obstruction from mid December to early March with bile duct excision with cholecystectomy with removal of extrahepatic bile duct and Isabell-en-Y hepaticojejunostomy on 07/2017 with the above-mentioned pathology. 4. Chronic back pain, mainly lower, for the last 5 to 6 years. 5. Significant weight loss of more than 20 to 30 pounds over the last 6 months. 6. No history of lymphoma (note that this was reported erroneously in the patient's chart. The patient does not report any history of lymphoma in the past and that is also corroborated by the patient's family). 7. Status post multiple ERCPs and stenting in the past since 2005. 8. Elevated alpha fetoprotein 1.8 in 12/2016. 9. Elevated CA19-9 of 272.9 in 12/2016. 10. Normal CEA at 1.6 on 01/14/2017. 11. Status post sigmoidoscopy, 01/16/2017, showing moderate pouchitis and negative for dysplasia or malignancy. 12. S/p perc drainage of right biliary system 04/03/17. 13. 04/09/17: s/p placement of left biliary drain which traverses patient's anastomosis on that side. Right system has a tight anastomosis that could not be traversed. 14. Compression fracture 04/10/17 Subjective: No major events or complaints; no major abd pain and under control with medications; no n/v/d; no sob or cp; + flatus; + BM and normal for him; minimal activity. Objective: Vitals: See below Exam: GENERAL: On exam, the patient was sitting on the commode and appeared to be comfortable and in no acute distress. ABDOMEN: Soft, nontender and nondistended. Incisions are clean, dry and intact without any evidence of erythema, edema, discharge, or hernia. R biliary drain with less purulent fluid and trending toward more bilious output, although still serosanguineous, in the bag. No leakage from right side around the tube and only minor staining on the dressings. L biliary drain with purulent fluid and trending toward more bilious output. SKIN: Skin appears to be less jaundiced and feels warm to touch. NEUROLOGIC: Patient was awake, alert, and followed commands appropriately. Exam/Review of Systems Vital Signs Vitals Vital Signs Date Time Temp Pulse Resp B/P Pulse Ox O2 Delivery O2 Flow Rate FiO2 04/16/17 12:39 62 04/16/17 12:00 18 04/16/17 11:28 98.2 102/58 98 Intake and Output 04/15/17 04/15/17 04/16/17 15:00 23:00 07:00 Intake Total 850 ml Balance 850 ml Results Result Diagram: 04/16/17 0936 04/16/17 1154 ZOE GOYAL M.D. April 16, 2017 13:25
--- NOTE | 2017-04-16 13:52 | PN ---
DATE: 04/16/2017 SUBJECTIVE: Patient is alert, sitting up in a chair, complaining decreased and stopped drainage fro m his right intra-abdominal drainage catheter. WBC today 18.5, platelets 318, neutrophils 89.9. BU N 15, creatinine 0.48. ANTIMICROBIALS: The patient remains on Zosyn. MICROBIOLOGY: Intra-abdominal fluid culture growing Klebsiella pneumoniae and Bacteroides fragilis. INDWELLINGS: The patient has two intra-abdominal drainages. PHYSICAL EXAMINATION: GENERAL: This is a well-developed, elderly, cachectic man who is alert, in no distress. HEENT: Head atraumatic, normocephalic. Sclerae anicteric. Buccal mucosa dry. NECK: Supple, trachea midline. CHEST: Rise symmetrical. Breath sounds clear, diminished to bases. HEART: S1, S2. ABDOMEN: Soft, bowel tones present. EXTREMITIES: Without cyanosis. ASSESSMENT: 1. Systemic inflammatory response syndrome with persistent leukocytosis, secondary to intra-abdomin al process, possibly also steroid induced. 2. Biliary obstruction status post fluoroscopic-guided biliary drainage catheter placement with zackery lundy on 04/12/2017. 3. Metastatic cholangiocarcinoma to lymph nodes and liver. 5. History of primary sclerosing cholangitis since 2008. 6. Cachexia. PLAN: The patient remains clinically stable. We will continue him on Zosyn. Follow surgical recom mendations in regards to his decreased drainage from the catheter. Dictated By: DEBRA GILL [employer] SUPERVISOR for BRITTNEY EDOUARD MD NI/NTS Conf#: [id number] DID#: [id number]
--- NOTE | 2017-04-16 17:02 | PN ---
Date/Time of Note Date/Time of Note DATE: 04/16/17 TIME: 16:57 Assessment/Plan VTE Prophylaxis VTE Prophylaxis Intervention: SCD's Lines/Catheters IV Catheter Type (from [facility]): Peripheral IV Urinary Cath still in place: No Assessment/Plan Chief Complaint/Hosp Course ASSESSMENT AND PLAN: 1. Metastatic cholangiocarcinoma with metastasis to the liver and lymph nodes. Status post cholecystectomy and excision of hepatic common bile duct with Isabell-en-Y hepaticojejunostomy on 01/24/2017. The patient being followed by oncology and hepatic surgeon. Poor prognosis. Continued drain care 2. History of Crohn's disease status post a proctocolectomy with J-pouch creation in 2005. 3. History of chronic primary sclerosing cholangitis. Continue IV antibiotics as per ID 4. Sinus bradycardia, asymptomatic. Cardiology following. 5. Chronic back pain. Lumbar spine CT showing osteopenia with mild L2 compression fracture. Continue on analgesics. 6. Protein calorie malnutrition. Dietary supplements. 7. Normocytic normochromic anemia, most probably anemia of chronic disease. Monitor H and H closely. 8. Depression. Continue Lexapro. 9. Status post placement of left biliary drain on 04/09/2017. Continue management as per surgery. 10. Status post placement of a right biliary drain on 03/24/2017, management as per surgery. On antibiotics as per infectious disease. DVT prophylaxis with bilateral sequential compression devices. Gastrointestinal prophylaxis. Proton pump inhibitors intervention planned. Prognosis: Guarded Continue monitor drain by hepatic surgeon collision center manager for prison facility placement Disposition: Transfer to prison facility when clear by surgery Problems: Subjective 24 Hr Interval Summary Free Text/Dictation Patient denies of any chest pain or shortness of breath He continues to complain of having difficulty with ambulation secondary to low back pain He is tolerating p.o. intake and consuming about 50-60% of his meals He is dependent on others for ambulation. Max assist with activity Exam/Review of Systems Vital Signs Vitals Vital Signs Date Time Temp Pulse Resp B/P Pulse Ox O2 Delivery O2 Flow Rate FiO2 04/16/17 16:48 60 04/16/17 16:30 16 04/16/17 15:33 98.7 102/61 97 Intake and Output 04/15/17 04/15/17 04/16/17 15:00 23:00 07:00 Intake Total 850 ml Balance 850 ml Exam General: The patient is underweight, Not in acute distress. HEENT: Conjunctivitis is jaundiced, normocephalic. The pupils are equal and round . Neck: Supple with full range of motion. Chest: Normal expansion of the thorax during inspiration Lungs: Clear to auscultation bilaterally Heart: Normal S1-S2, Regular rhythm and rate. Abdomen: Soft , nontender, nondistended , bowel sounds are present. Drain [address] Extremities: Normal to inspection, no edema no cyanosis Neurologic: Normal mental status,The patient is awake, alert and oriented . Results Result Diagram: 04/16/17 0936 04/16/17 1154 Results 24 hrs Laboratory Tests Test 04/16/17 09:36 04/16/17 11:54 White Blood Count 18.5 #H Red Blood Count 3.05 L Hemoglobin 9.1 L Hematocrit 29.3 L Mean Corpuscular Volume 96.1 Mean Corpuscular Hemoglobin 29.8 Mean Corpuscular Hemoglobin Concent 31.1 L Red Cell Distribution Width 20.6 H Platelet Count 318 # Mean Platelet Volume 10.2 Neutrophils % 89.9 H Lymphocytes % 5.4 L Monocytes % 3.5 Eosinophils % 0.4 Basophils % 0.1 Nucleated Red Blood Cells % 0.0 Neutrophils # 16.7 H Lymphocytes # 1.0 Monocytes # 0.6 Eosinophils # 0.1 Basophils # 0.0 Nucleated Red Blood Cells # 0.0 Sodium Level 139 134 L Potassium Level 4.4 3.9 Chloride Level 104 100 Carbon Dioxide Level 32 H 27 Anion Gap 7 L 11 Blood Urea Nitrogen 15 15 Creatinine 0.52 L 0.48 L Glucose Level 124 137 Calcium Level 8.6 8.5 Phosphorus Level 1.9 L Magnesium Level 1.8 Prothrombin Time 17.3 H Prothrombin Time Ratio 1.4 INR International Normalized Ratio 1.41 Activated Partial Thromboplast Time 29.2 Total Bilirubin 2.7 H Direct Bilirubin 1.60 H Indirect Bilirubin 1.1 Aspartate Amino Transf (AST/SGOT) 31 Alanine Aminotransferase (ALT/SGPT) 59 Alkaline Phosphatase 310 H Total Protein 7.0 Albumin 2.9 L Globulin 4.10 H Albumin/Globulin Ratio 0.70 Medications Medications Current Medications Ondansetron HCl (Zofran Inj) 4 mg Q6H PRN IV NAUSEA AND/OR VOMITING; Start at 19:30 Acetaminophen (Tylenol Tab) 650 mg Q6H PRN PO PAIN LEVEL 1-3 OR FEVER; Start at 19:30 Docusate Sodium (Colace) 100 mg Q12H PRN PO CONSTIPATION; Start 03/30/17 at 19: 30 Magnesium Hydroxide (Milk Of Mag) 30 ml DAILY PRN PO CONSTIPATION; Start at 19:30 Sodium Biphosphate/ Sodium Phosphate (Fleet Enema) 133 ml DAILY PRN CO CONSTIPATION; Start 03/30/17 at 19:30 Pantoprazole 40 mg 40 mg DAILY@06 IV Last administered on 04/16/17 06:44; Admin Dose 40 MG; Start 03/31/17 at 06:00 Piperacillin Sod/ Tazobactam Sod (Zosyn 3.375gm/ 100 ml (Pmx)) 100 ml @ 200 mls /hr Q6 IVPB Last administered on 04/16/17 12:49; Admin Dose 200 MLS/HR; Start 03/31/17 at 00:00 Hydralazine HCl (Apresoline) 10 mg Q6H PRN IV ELEVATED BLOOD PRESSURE; Start at 19:30 Nitroglycerin (Nitroglycerin (Sl Tab) 0.4 Mg) 1 tab Q5M PRN SL ANGINA; Start at 19:30 Hydromorphone HCl (Dilaudid DEGREASER) MG/HR CONTINUOUS R... Q4PCA IV Last administered on 04/16/17 00:11; Admin Dose 6 MG; Start 03/31/17 at 13:30 Potassium Chloride (Klor-Con 10) 10 meq BID PO Last administered on 04/16/17 08:48; Admin Dose 10 MEQ; Start 04/07/17 at 21:00 Escitalopram Oxalate (Lexapro) 20 mg DAILY PO Last administered on 04/16/17 08 :48; Admin Dose 20 MG; Start 04/11/17 at 09:00 Methylprednisolone Sodium Succinate (Solu-Medrol) 60 mg AM IV Last administered on 04/16/17 08:48; Admin Dose 60 MG; Start 04/11/17 at 09:00 Nystatin (Nystatin Susp) 5 ml QID PO Last administered on 04/16/17 12:49; Admin Dose 5 ML; Start 04/13/17 at 18:00 YESSICA SALINAS MD April 16, 2017 17:02
--- NOTE | 2017-04-16 17:45 | PN ---
DATE: 04/16/2017 CARDIOLOGY FOLLOWUP SUBJECTIVE: Discussed with the staff. The patient remains in sinus rhythm, sinus bradycardia. No chest pain or pressure, no syncope, no presyncope. Has mild pain at the site of GI drainage. MEDICATIONS: Reviewed. PHYSICAL EXAMINATION: VITAL SIGNS: Temperature 98.7, heart rate of 60, blood pressure 102/61, respiration rate of 16, sat urating 97%. HEENT: Normocephalic, atraumatic. Thin gentleman. No acute distress. Eyes positive for icterus. Pupils are equal and round. NECK: Supple, no JVD. CARDIOVASCULAR: Bradycardic, systolic murmur. PULMONARY: With no wheezes, rhonchi. GASTROINTESTINAL: Soft, mild tenderness to palpation sternal wound drainage. EXTREMITIES: No significant lower extremity edema. NEUROLOGIC: Awake and alert, oriented x3. PSYCHIATRIC: Appears to be calm at this point. DERMATOLOGIC: There is diffuse jaundice. LABORATORY: WBC 18.5, hemoglobin 9.1, platelets 318. Sodium 134, potassium 3.4, BUN of 15, creatin ine 0.48, glucose of 135. Total bilirubin is 2.7, direct bilirubin is 1.6. ASSESSMENT AND PLAN: 1. Sick sinus syndrome, marked sinus bradycardia, currently asymptomatic. We will continue to usha tor only at this point. 2. Metastatic cholangiocarcinoma, history of abdominal surgeries and Crohn disease. 3. Sclerosing cholangitis. History of cholangiocarcinoma. 4. Failure to thrive. 5. Jaundice. 6. Thrombocytopenia. RECOMMENDATIONS: We will continue with supportive care and medical therapy only from the cardiac [facility]. Electrolytes including potassium to be replaced as needed. Follow with GI and surgery re commendations. Dictated By: POOJA CHAVEZ MD AV/JASMYNE Conf#: [id number] DID#: [id number] CC: LINDA HOLLIS [employer];*EndCC*
--- NOTE | 2017-04-16 22:55 | CONS ---
Date/Time of Note Date/Time of Note DATE: 04/16/17 TIME: 22:53 Assessment/Plan Assessment/Plan Chief Complaint/Hosp Course 1. 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 postop , NOW WITH Metastatic dis in the liver lobular area of elevated T2 signal is seen in the central liver worrisome for a mass possibly cholangiocarcinoma and this causes prominent intrahepatic biliary ductal dilatation of both the left and right intrahepatic biliary ducts with central loss of signal at the area of the mass. CT and MRI- REVIEWED TUMOR MARKERS : ca 19-9 1420 , c/w to tumor progression hepatobiliary consult noted- D/W D LEÓN POST drain placement in the right lobe of the liver- c/w abscess POST stenting across the anastomosis with IR. PTBD LFT - noted 2. Obstructive jaundice. Stable, ro stricture/recurrent tumor. MRCP/GI eval, hepatobiliary surgery consult- REVIEWED surgical f-up Dr Anderson noted POST biliary drainage by interventional radiology 3. Chronic Crohn's disease status post total proctocolectomy with J-pouch creation 2005. 4. Chronic primary sclerosing cholangitis w cholangiocarcinoma. Needs advanced care planning evaluated. Poor prognosis. Performance status questionable at this time for chemotherapy & bilirubin needs some improvement. 5. Malnutrition; oral feeds/Megace vs TPN 6. Active pouchitis? 7. Postop day 16 bd excision w cholecystectomy, excision of extrahepatic cbd and Isabell-en-Y hepaticojejunostomy. 8. Failure to thrive, may need snf 9. Anemia- WILL TRANSFUSE PRBC PRN 10. Reactive thrombocytosis 11. Dyslipidemia. POOR PS agree with transfer to SNF Problems: Consultation Date/Type/Reason Admit Date/Time March 30, 2017 at 18:53 Initial Consult Date 03/31/17 Type of Consultation: [facility] Referring Provider: HUMZA JAIME MD 24 HR Interval Summary Free Text/Dictation Patient denies of any chest pain or shortness of breath + difficulty with ambulation secondary to low back pain He is tolerating p.o. intake weak Exam/Review of Systems Vital Signs Vitals Vital Signs Date Time Temp Pulse Resp B/P Pulse Ox O2 Delivery O2 Flow Rate FiO2 04/16/17 20:13 98.4 53 16 107/66 99 Intake and Output 04/15/17 04/15/17 04/16/17 15:00 23:00 07:00 Intake Total 850 ml Balance 850 ml Exam Constitutional: alert, frail, oriented, calm Psych: depression Neck: No jvd Respiratory: clear to auscultation, normal air movement Cardiovascular: regular rate and rhythm Gastrointestinal: other (right flank drainage bag x2 ), soft, tender Musculoskeletal: No nl gait and stance Neurological: COMPUTER OPERATIONS ANALYST II-XII intact, nl mental status, nl speech Results Result Diagram: 04/16/17 0936 04/16/17 1154 Results 24 hrs Laboratory Tests Test 04/16/17 09:36 04/16/17 11:54 White Blood Count 18.5 #H Red Blood Count 3.05 L Hemoglobin 9.1 L Hematocrit 29.3 L Mean Corpuscular Volume 96.1 Mean Corpuscular Hemoglobin 29.8 Mean Corpuscular Hemoglobin Concent 31.1 L Red Cell Distribution Width 20.6 H Platelet Count 318 # Mean Platelet Volume 10.2 Neutrophils % 89.9 H Lymphocytes % 5.4 L Monocytes % 3.5 Eosinophils % 0.4 Basophils % 0.1 Nucleated Red Blood Cells % 0.0 Neutrophils # 16.7 H Lymphocytes # 1.0 Monocytes # 0.6 Eosinophils # 0.1 Basophils # 0.0 Nucleated Red Blood Cells # 0.0 Sodium Level 139 134 L Potassium Level 4.4 3.9 Chloride Level 104 100 Carbon Dioxide Level 32 H 27 Anion Gap 7 L 11 Blood Urea Nitrogen 15 15 Creatinine 0.52 L 0.48 L Glucose Level 124 137 Calcium Level 8.6 8.5 Phosphorus Level 1.9 L Magnesium Level 1.8 Prothrombin Time 17.3 H Prothrombin Time Ratio 1.4 INR International Normalized Ratio 1.41 Activated Partial Thromboplast Time 29.2 Total Bilirubin 2.7 H Direct Bilirubin 1.60 H Indirect Bilirubin 1.1 Aspartate Amino Transf (AST/SGOT) 31 Alanine Aminotransferase (ALT/SGPT) 59 Alkaline Phosphatase 310 H Total Protein 7.0 Albumin 2.9 L Globulin 4.10 H Albumin/Globulin Ratio 0.70 Medications Medications Current Medications Ondansetron HCl (Zofran Inj) 4 mg Q6H PRN IV NAUSEA AND/OR VOMITING; Start at 19:30 Acetaminophen (Tylenol Tab) 650 mg Q6H PRN PO PAIN LEVEL 1-3 OR FEVER; Start at 19:30 Docusate Sodium (Colace) 100 mg Q12H PRN PO CONSTIPATION; Start 03/30/17 at 19: 30 Magnesium Hydroxide (Milk Of Mag) 30 ml DAILY PRN PO CONSTIPATION; Start at 19:30 Sodium Biphosphate/ Sodium Phosphate (Fleet Enema) 133 ml DAILY PRN AL CONSTIPATION; Start 03/30/17 at 19:30 Pantoprazole 40 mg 40 mg DAILY@06 IV Last administered on 04/16/17 06:44; Admin Dose 40 MG; Start 03/31/17 at 06:00 Piperacillin Sod/ Tazobactam Sod (Zosyn 3.375gm/ 100 ml (Pmx)) 100 ml @ 200 mls /hr Q6 IVPB Last administered on 04/16/17 19:14; Admin Dose 200 MLS/HR; Start 03/31/17 at 00:00 Hydralazine HCl (Apresoline) 10 mg Q6H PRN IV ELEVATED BLOOD PRESSURE; Start at 19:30 Nitroglycerin (Nitroglycerin (Sl Tab) 0.4 Mg) 1 tab Q5M PRN SL ANGINA; Start at 19:30 Hydromorphone HCl (Dilaudid PICKING CREW SUPERVISOR) MG/HR CONTINUOUS R... Q4PCA IV Last administered on 04/16/17 00:11; Admin Dose 6 MG; Start 03/31/17 at 13:30 Escitalopram Oxalate (Lexapro) 20 mg DAILY PO Last administered on 04/16/17 08 :48; Admin Dose 20 MG; Start 04/11/17 at 09:00 Methylprednisolone Sodium Succinate (Solu-Medrol) 60 mg AM IV Last administered on 04/16/17 08:48; Admin Dose 60 MG; Start 04/11/17 at 09:00 Nystatin (Nystatin Susp) 5 ml QID PO Last administered on 04/16/17 21:08; Admin Dose 5 ML; Start 04/13/17 at 18:00 Potassium Chloride (Klor-Con 10) 10 meq BID@08,18 PO ; Start 04/17/17 at 08:00 KIN ESTEBAN MD April 16, 2017 22:55
[2017-04-17] VITALS (10 sets, daily range): BP systolic 107–120; BP diastolic 58–70; PULSE 42–60; RESP 16–18
[2017-04-17] MEDS: PIPER-TAZO 3.375 GM IV (PMX) 100 ML IVPB SCH ×3 (06:07→17:31)
[2017-04-17] MEDS: PANTOPRAZOLE 40 MG INJ IV SCH (06:07)
[2017-04-17 07:32] LABS: ADD SCAN DIFF NO
[2017-04-17 07:42] LABS: BASOPHILS % 0.1 % (0.0-2.0); EOSINOPHILS % 0.2 % (0.0-7.0); HEMATOCRIT 30.8 % (42.0-52.0); HEMOGLOBIN 9.5 g/dl (14.0-18.0); LYMPHOCYTES # 1.4 10^3/ul (0.8-2.9); LYMPHOCYTES % 9.7 % (15.0-51.0); MEAN CORPUSCULAR HGB CONC 30.8 g/dl (32.0-37.0); MEAN CORPUSCULAR VOLUME 97.2 fl (82.0-101.0); MEAN PLATELET VOLUME 10.2 fl (7.4-10.4); MONOCYTE # 0.7 10^3/ul (0.3-0.9); NEUTROPHIL # 12.1 10^3/ul (1.6-7.5); NEUTROPHILS % 84.4 % (39.0-77.0); PLATELET COUNT 385 10^3/UL (140-415); RED BLOOD COUNT 3.17 10^6/ul (4.70-6.10); RED CELL DISTRIBUTION WIDTH 20.4 % (11.5-14.5); WHITE BLOOD COUNT 14.4 10^3/ul (4.8-10.8)
[2017-04-17 07:56] LABS: ALBUMIN 3.4 g/dl (3.3-4.9); INR 1.43; PROTIME 17.5 Sec (12.2-14.2); PT RATIO 1.4
[2017-04-17 07:57] LABS: PARTIAL THROMBOPLASTIN TIME 30.4 Sec (25.0-35.0); POTASSIUM 4.4 mmol/L (3.5-5.1)
[2017-04-17 07:59] LABS: ALBUMIN/GLOBULIN RATIO 1.03; BILIRUBIN,DIRECT 0.9 mg/dl (0.00-0.20); BILIRUBIN,INDIRECT 0.9 mg/dl (0-1.1); BILIRUBIN,TOTAL 1.8 mg/dl (0.2-1.3); CREATININE 0.56 mg/dl (0.61-1.24); TOTAL PROTEIN 6.7 g/dl (6.1-8.1)
[2017-04-17 08:00] LABS: CALCIUM 8.8 mg/dl (8.4-10.2); MAGNESIUM 1.8 mg/dl (1.7-2.5); PHOSPHORUS 1.9 mg/dl (2.5-4.9)
[2017-04-17] MEDS: NYSTATIN SUSP 5 ML CUP PO SCH ×4 (08:52→21:28)
[2017-04-17] MEDS: POTASSIUM CHLORIDE (SR) 10 MEQ TAB PO SCH ×2 (08:52→17:31)
[2017-04-17] MEDS: ESCITALOPRAM 10 MG TAB PO SCH (08:52)
[2017-04-17] MEDS: METHYLPREDNISOLONE 125 MG INJ IV SCH (08:52)
--- NOTE | 2017-04-17 10:35 | PN ---
Date/Time of Note Date/Time of Note DATE: 04/17/17 TIME: 10:32 Assessment/Plan Lines/Catheters IV Catheter Type (from Nrs): Peripheral IV Andrews in Place (from Nrs): No Assessment/Plan Assessment/Plan [facility] Progress Note Date of Service: 04/17/17 Today's Impression & Plan: Overall stable and continues to slowly improve. No new issues. Significant continued improvement in LFT's. WBC lower and likely due to intermittent blockage of the biliary drains (very important to flush those with NS at least once or twice a day; this needs to continue in the next setting). With above assessment, I've recommended the following for today: 1. Continued aggressive medical management with broad spec antimicrobials with plans to start weaning him off the antimicrobials once WBC normal for more than 48 hrs 2. Aggressive nutritional support with increased oral intake. 3. Labs in am including LFT's 4. Drains to gravity drainage and flush per instructions 5. Maximize antidepressants 6. Continued supportive care management 7. Continue Toradol for back pain 8. Assisted activity with education on how to deal with his back 9. F/u on culture results and do more cultures if indicated clinically (still at risk for ongoing cholangitis, UTI, pneumonia, etc.) Thank you again for your great care of this very pleasant patient and wonderful family. If there are any questions, please feel free to call me at [phone]. TOTAL VISIT TIME: 20 minutes of which more than half was spent in [id number] discussion with the patient, possibly including family, as well as coordination of care between multiple physicians and providers. Disclaimer: Inadvertent spelling or grammatical errors are likely due to EHR/ dictation software use and do not reflect on the overall quality of patient care. Updated clinical summary: A very pleasant 61-year-old gentleman with significant past medical history including ulcerative colitis status post total proctocolectomy and ileoanal pouch as well as a number of other medical issues who was diagnosed with cholangiocarcinoma and underwent a radical bile duct resection that included extrahepatic bile duct and gallbladder at [facility], 2016, with final diagnosis of cholangiocarcinoma with 1 lymph node positive disease as well as low-grade dysplasia and carcinoma in situ at the proximal margin. The patient was readmitted to [facility] after a 2 month hospital stay at [facility] with increasing weakness, jaundice, and diffuse body pain. S/p perc drainage of right biliary system 04/03/17. : s/p placement of left biliary drain which traverses patient's anastomosis on that side. Right system has a tight anastomosis that could not be traversed. R biliary drain upsized 04/12/17. COMORBIDITIES: 1. History of ulcerative colitis status post total proctocolectomy and ileoanal pouch. 2. Diagnosis of primary sclerosing cholangitis since 2008 being cared for at various institutions such as [facility] and by various physicians with involvement of Dr. Kyrstian Adkins for hepatology. 3. History of hospitalization at [facility] for bile duct obstruction from mid December to early March with bile duct excision with cholecystectomy with removal of extrahepatic bile duct and Isabell-en-Y hepaticojejunostomy on 07/2017 with the above-mentioned pathology. 4. Chronic back pain, mainly lower, for the last 5 to 6 years. 5. Significant weight loss of more than 20 to 30 pounds over the last 6 months. 6. No history of lymphoma (note that this was reported erroneously in the patient's chart. The patient does not report any history of lymphoma in the past and that is also corroborated by the patient's family). 7. Status post multiple ERCPs and stenting in the past since 2005. 8. Elevated alpha fetoprotein 1.8 in 12/2016. 9. Elevated CA19-9 of 272.9 in 12/2016. 10. Normal CEA at 1.6 on 01/14/2017. 11. Status post sigmoidoscopy, 01/16/2017, showing moderate pouchitis and negative for dysplasia or malignancy. 12. S/p perc drainage of right biliary system 04/03/17. 13. 04/09/17: s/p placement of left biliary drain which traverses patient's anastomosis on that side. Right system has a tight anastomosis that could not be traversed. 14. Compression fracture 04/10/17 Subjective: No major events or complaints; no major abd pain and under control with medications; no n/v/d; no sob or cp; + flatus; + BM and normal for him; minimal activity. Back pain still present. Objective: Vitals: See below Exam: GENERAL: On exam, the patient was sitting on the commode and appeared to be comfortable and in no acute distress. ABDOMEN: Soft, nontender and nondistended. Incisions are clean, dry and intact without any evidence of erythema, edema, discharge, or hernia. R biliary drain with less purulent fluid and trending toward more bilious output. L biliary drain with purulent fluid and trending toward more bilious output. SKIN: Skin appears to be less jaundiced and feels warm to touch. NEUROLOGIC: Patient was awake, alert, and followed commands appropriately. Exam/Review of Systems Vital Signs Vitals Vital Signs Date Time Temp Pulse Resp B/P Pulse Ox O2 Delivery O2 Flow Rate FiO2 04/17/17 08:56 14 04/17/17 08:49 42 04/17/17 07:35 98.0 107/66 98 Intake and Output 04/16/17 04/16/17 04/17/17 14:59 22:59 06:59 Intake Total 650 ml 1250 ml 500 ml Output Total 110 ml 55 ml 60 ml Balance 540 ml 1195 ml 440 ml Results Result Diagram: 04/17/17 0631 04/17/17 0631 ZOE GOYAL M.D. April 17, 2017 10:35
--- NOTE | 2017-04-17 15:06 | PN ---
Date/Time of Note Date/Time of Note DATE: 04/17/17 TIME: 15:04 Assessment/Plan VTE Prophylaxis VTE Prophylaxis Intervention: SCD's Lines/Catheters IV Catheter Type (from [facility]): Peripheral IV Urinary Cath still in place: No Assessment/Plan Chief Complaint/Hosp Course ASSESSMENT AND PLAN: 1. Metastatic cholangiocarcinoma with metastasis to the liver and lymph nodes. Status post cholecystectomy and excision of hepatic common bile duct with Isabell-en-Y hepaticojejunostomy on 01/24/2017. The patient being followed by oncology and hepatic surgeon. Poor prognosis. Continued drain care Liver function test has been improving 2. History of Crohn's disease status post a proctocolectomy with J-pouch creation in 2005. 3. History of chronic primary sclerosing cholangitis. Continue IV antibiotics as per ID 4. Sinus bradycardia, asymptomatic. Cardiology following. 5. Chronic back pain. Lumbar spine CT showing osteopenia with mild L2 compression fracture. Continue on analgesics. 6. Protein calorie malnutrition. Dietary supplements. 7. Normocytic normochromic anemia, most probably anemia of chronic disease. Monitor H and H closely. 8. Depression. Continue Lexapro. 9. Status post placement of left biliary drain on 04/09/2017. Continue management as per surgery. 10. Status post placement of a right biliary drain on 03/24/2017, management as per surgery. On antibiotics as per infectious disease. DVT prophylaxis with bilateral sequential compression devices. Gastrointestinal prophylaxis. Proton pump inhibitors intervention planned. Prognosis: Guarded Continue monitor drain by hepatic surgeon group product manager for longterm facility placement Disposition: Transfer to longterm facility when clear by surgery Problems: Subjective 24 Hr Interval Summary Free Text/Dictation Patient denies of any chest pain or shortness of breath Has been able to tolerate p.o. intake Positive bowel movement The drain has been flushed and functioning Exam/Review of Systems Vital Signs Vitals Vital Signs Date Time Temp Pulse Resp B/P Pulse Ox O2 Delivery O2 Flow Rate FiO2 04/17/17 12:38 60 04/17/17 12:24 16 04/17/17 07:35 98.0 107/66 98 Intake and Output 04/16/17 04/16/17 04/17/17 15:00 23:00 07:00 Intake Total 650 ml 1250 ml 500 ml Output Total 110 ml 55 ml 60 ml Balance 540 ml 1195 ml 440 ml Exam General: The patient is underweight, Not in acute distress. HEENT: Conjunctivitis is jaundiced, normocephalic. The pupils are equal and round . Neck: Supple with full range of motion. Chest: Normal expansion of the thorax during inspiration Lungs: Clear to auscultation bilaterally Heart: Normal S1-S2, Regular rhythm and rate. Abdomen: Soft , nontender, nondistended , bowel sounds are present. Drain in place 2 Extremities: Evidence of muscle wasting bilateral lower extremity, no edema no cyanosis Neurologic: Normal mental status,The patient is awake, alert and oriented . Results Result Diagram: 04/17/17 0631 04/17/17 0631 Results 24 hrs Laboratory Tests Test 04/17/17 06:31 White Blood Count 14.4 #H Red Blood Count 3.17 L Hemoglobin 9.5 L Hematocrit 30.8 L Mean Corpuscular Volume 97.2 Mean Corpuscular Hemoglobin 30.0 Mean Corpuscular Hemoglobin Concent 30.8 L Red Cell Distribution Width 20.4 H Platelet Count 385 # Mean Platelet Volume 10.2 Neutrophils % 84.4 H Lymphocytes % 9.7 L Monocytes % 5.0 Eosinophils % 0.2 Basophils % 0.1 Nucleated Red Blood Cells % 0.0 Neutrophils # 12.1 H Lymphocytes # 1.4 Monocytes # 0.7 Eosinophils # 0.0 Basophils # 0.0 Nucleated Red Blood Cells # 0.0 Prothrombin Time 17.5 H Prothrombin Time Ratio 1.4 INR International Normalized Ratio 1.43 Activated Partial Thromboplast Time 30.4 Sodium Level 139 Potassium Level 4.4 Chloride Level 105 Carbon Dioxide Level 32 H Anion Gap 6 L Blood Urea Nitrogen 17 Creatinine 0.56 L Glucose Level 100 Calcium Level 8.8 Phosphorus Level 1.9 L Magnesium Level 1.8 Total Bilirubin 1.8 H Direct Bilirubin 0.90 #H Indirect Bilirubin 0.9 Aspartate Amino Transf (AST/SGOT) 35 Alanine Aminotransferase (ALT/SGPT) 53 Alkaline Phosphatase 338 H Total Protein 6.7 Albumin 3.4 Globulin 3.30 H Albumin/Globulin Ratio 1.03 Medications Medications Current Medications Ondansetron HCl (Zofran Inj) 4 mg Q6H PRN IV NAUSEA AND/OR VOMITING; Start at 19:30 Acetaminophen (Tylenol Tab) 650 mg Q6H PRN PO PAIN LEVEL 1-3 OR FEVER; Start at 19:30 Docusate Sodium (Colace) 100 mg Q12H PRN PO CONSTIPATION; Start 03/30/17 at 19: 30 Magnesium Hydroxide (Milk Of Mag) 30 ml DAILY PRN PO CONSTIPATION; Start at 19:30 Sodium Biphosphate/ Sodium Phosphate (Fleet Enema) 133 ml DAILY PRN [place] CONSTIPATION; Start 03/30/17 at 19:30 Pantoprazole 40 mg 40 mg DAILY@06 IV Last administered on 04/17/17 06:07; Admin Dose 40 MG; Start 03/31/17 at 06:00 Piperacillin Sod/ Tazobactam Sod (Zosyn 3.375gm/ 100 ml (Pmx)) 100 ml @ 200 mls /hr Q6 IVPB Last administered on 04/17/17 12:24; Admin Dose 200 MLS/HR; Start 03/31/17 at 00:00 Hydralazine HCl (Apresoline) 10 mg Q6H PRN IV ELEVATED BLOOD PRESSURE; Start at 19:30 Nitroglycerin (Nitroglycerin (Sl Tab) 0.4 Mg) 1 tab Q5M PRN SL ANGINA; Start at 19:30 Hydromorphone HCl (Dilaudid ENGINE MECHANIC) MG/HR CONTINUOUS R... Q4PCA IV Last administered on 04/16/17 00:11; Admin Dose 6 MG; Start 03/31/17 at 13:30 Escitalopram Oxalate (Lexapro) 20 mg DAILY PO Last administered on 04/17/17 08 :52; Admin Dose 20 MG; Start 04/11/17 at 09:00 Nystatin (Nystatin Susp) 5 ml QID PO Last administered on 04/17/17 12:24; Admin Dose 5 ML; Start 04/13/17 at 18:00 Potassium Chloride (Klor-Con 10) 10 meq BID@08,18 PO Last administered on 08:52; Admin Dose 10 MEQ; Start 04/17/17 at 08:00 Methylprednisolone Sodium Succinate (Solu-Medrol) 30 mg AM IV ; Start 04/18/17 at 09:00 YESSICA SALINAS MD April 17, 2017 15:06
--- NOTE | 2017-04-17 15:33 | PN ---
Date/Time of Note Date/Time of Note DATE: 04/17/17 TIME: 15:28 Assessment/Plan VTE Prophylaxis VTE Prophylaxis Intervention: SCD's Lines/Catheters IV Catheter Type (from Nrs): Peripheral IV Urinary Cath still in place: No Assessment/Plan Assessment/Plan Obstructive jaundice S/P PTBD 04/09/2017 S/P PTBD right biliary system 04/04/2017 S/P bile duct excision with cholecystectomy excision of extrahepatic duct,and Isabell en Y hepaticojejuniostomy sec to cholangiocarcinoma * Hematochezia resolved * History of proctocolectomy with J pouch 2005 * History of sigmoidoscopy 01/2017 moderate pouchitis,no evidence of malignancy * Intractable pain Plan * Continue present management * pain control * follow up patient as needed Subjective 24 Hr Interval Summary Free Text/Dictation * Course reviewed with RN * Patient seen and examined * No leak * ALT.AST improved alkaline phosphatase 338,Total bilirubin 1.8 Exam/Review of Systems Vital Signs Vitals Vital Signs Date Time Temp Pulse Resp B/P Pulse Ox O2 Delivery O2 Flow Rate FiO2 04/17/17 12:38 60 04/17/17 12:24 16 04/17/17 07:35 98.0 107/66 98 Intake and Output 04/16/17 04/16/17 04/17/17 15:00 23:00 07:00 Intake Total 650 ml 1250 ml 500 ml Output Total 110 ml 55 ml 60 ml Balance 540 ml 1195 ml 440 ml Exam Constitutional: alert, frail Neck: supple Respiratory: diminished breath sounds, normal air movement Cardiovascular: nl pulses, regular rate and rhythm Gastrointestinal: non-tender, soft Musculoskeletal: nl extremities to inspection Extremities: normal pulses Results Result Diagram: 04/17/1731 04/17/17 0631 Results 24 hrs Laboratory Tests Test 04/17/17 06:31 White Blood Count 14.4 #H Red Blood Count 3.17 L Hemoglobin 9.5 L Hematocrit 30.8 L Mean Corpuscular Volume 97.2 Mean Corpuscular Hemoglobin 30.0 Mean Corpuscular Hemoglobin Concent 30.8 L Red Cell Distribution Width 20.4 H Platelet Count 385 # Mean Platelet Volume 10.2 Neutrophils % 84.4 H Lymphocytes % 9.7 L Monocytes % 5.0 Eosinophils % 0.2 Basophils % 0.1 Nucleated Red Blood Cells % 0.0 Neutrophils # 12.1 H Lymphocytes # 1.4 Monocytes # 0.7 Eosinophils # 0.0 Basophils # 0.0 Nucleated Red Blood Cells # 0.0 Prothrombin Time 17.5 H Prothrombin Time Ratio 1.4 INR International Normalized Ratio 1.43 Activated Partial Thromboplast Time 30.4 Sodium Level 139 Potassium Level 4.4 Chloride Level 105 Carbon Dioxide Level 32 H Anion Gap 6 L Blood Urea Nitrogen 17 Creatinine 0.56 L Glucose Level 100 Calcium Level 8.8 Phosphorus Level 1.9 L Magnesium Level 1.8 Total Bilirubin 1.8 H Direct Bilirubin 0.90 #H Indirect Bilirubin 0.9 Aspartate Amino Transf (AST/SGOT) 35 Alanine Aminotransferase (ALT/SGPT) 53 Alkaline Phosphatase 338 H Total Protein 6.7 Albumin 3.4 Globulin 3.30 H Albumin/Globulin Ratio 1.03 Medications Medications Current Medications Ondansetron HCl (Zofran Inj) 4 mg Q6H PRN IV NAUSEA AND/OR VOMITING; Start at 19:30 Acetaminophen (Tylenol Tab) 650 mg Q6H PRN PO PAIN LEVEL 1-3 OR FEVER; Start at 19:30 Docusate Sodium (Colace) 100 mg Q12H PRN PO CONSTIPATION; Start 03/30/17 at 19: 30 Magnesium Hydroxide (Milk Of Mag) 30 ml DAILY PRN PO CONSTIPATION; Start at 19:30 Sodium Biphosphate/ Sodium Phosphate (Fleet Enema) 133 ml DAILY PRN [place] CONSTIPATION; Start 03/30/17 at 19:30 Pantoprazole 40 mg 40 mg DAILY@06 IV Last administered on 04/17/17 06:07; Admin Dose 40 MG; Start 03/31/17 at 06:00 Piperacillin Sod/ Tazobactam Sod (Zosyn 3.375gm/ 100 ml (Pmx)) 100 ml @ 200 mls /hr Q6 IVPB Last administered on 04/17/17 12:24; Admin Dose 200 MLS/HR; Start 03/31/17 at 00:00 Hydralazine HCl (Apresoline) 10 mg Q6H PRN IV ELEVATED BLOOD PRESSURE; Start at 19:30 Nitroglycerin (Nitroglycerin (Sl Tab) 0.4 Mg) 1 tab Q5M PRN SL ANGINA; Start at 19:30 Hydromorphone HCl (Dilaudid MAINTENANCE SHOP TECHNICIAN) MG/HR CONTINUOUS R... Q4PCA IV Last administered on 04/16/17 00:11; Admin Dose 6 MG; Start 03/31/17 at 13:30 Escitalopram Oxalate (Lexapro) 20 mg DAILY PO Last administered on 04/17/17 08 :52; Admin Dose 20 MG; Start 04/11/17 at 09:00 Nystatin (Nystatin Susp) 5 ml QID PO Last administered on 04/17/17 12:24; Admin Dose 5 ML; Start 04/13/17 at 18:00 Potassium Chloride (Klor-Con 10) 10 meq BID@08,18 PO Last administered on 08:52; Admin Dose 10 MEQ; Start 04/17/17 at 08:00 Methylprednisolone Sodium Succinate (Solu-Medrol) 30 mg AM IV ; Start 04/18/17 at 09:00 BRAD PRADO MD April 17, 2017 15:33
--- NOTE | 2017-04-17 19:20 | CONS ---
Date/Time of Note Date/Time of Note DATE: 04/17/17 TIME: 19:19 Assessment/Plan Assessment/Plan Chief Complaint/Hosp Course SUBJECTIVE: Patient is alert, denies pain, looks comfortable, no fevers ANTIMICROBIALS: The patient remains on Zosyn. MICROBIOLOGY: Intra-abdominal fluid culture growing Klebsiella pneumoniae and Bacteroides fragilis. INDWELLINGS: The patient has two intra-abdominal drainages. PHYSICAL EXAMINATION: GENERAL: This is a well-developed, elderly, cachectic man who is alert, in no distress. HEENT: Head atraumatic, normocephalic. Sclerae anicteric. Buccal mucosa dry. NECK: Supple, trachea midline. CHEST: Rise symmetrical. Breath sounds clear, diminished to bases. HEART: S1, S2. ABDOMEN: Soft, bowel tones present. EXTREMITIES: Without cyanosis. ASSESSMENT: 1. Systemic inflammatory response syndrome with persistent leukocytosis, secondary to intra-abdominal process, possibly also steroid induced. 2. Biliary obstruction status post fluoroscopic-guided biliary drainage catheter placement with exchange on 04/12/2017. 3. Metastatic cholangiocarcinoma to lymph nodes and liver. 5. History of primary sclerosing cholangitis since 2008. 6. Cachexia. PLAN: The patient remains clinically stable. We will change abx to Levaquin and Flagyl. Follow surgical recommendations, pending hospice eval DW at bedside Problems: Consultation Date/Type/Reason Admit Date/Time March 30, 2017 at 18:53 Initial Consult Date 03/31/17 Type of Consultation: ID Referring Provider: HUMZA JAIME MD Exam/Review of Systems Vital Signs Vitals Vital Signs Date Time Temp Pulse Resp B/P Pulse Ox O2 Delivery O2 Flow Rate FiO2 04/17/17 16:55 16 04/17/17 16:46 48 04/17/17 15:44 98.0 120/60 99 Intake and Output 04/16/17 04/16/17 04/17/17 15:00 23:00 07:00 Intake Total 650 ml 1250 ml 500 ml Output Total 110 ml 55 ml 60 ml Balance 540 ml 1195 ml 440 ml Results Result Diagram: 04/17/1731 04/17/17 0631 Results 24 hrs Laboratory Tests Test 04/17/17 06:31 White Blood Count 14.4 #H Red Blood Count 3.17 L Hemoglobin 9.5 L Hematocrit 30.8 L Mean Corpuscular Volume 97.2 Mean Corpuscular Hemoglobin 30.0 Mean Corpuscular Hemoglobin Concent 30.8 L Red Cell Distribution Width 20.4 H Platelet Count 385 # Mean Platelet Volume 10.2 Neutrophils % 84.4 H Lymphocytes % 9.7 L Monocytes % 5.0 Eosinophils % 0.2 Basophils % 0.1 Nucleated Red Blood Cells % 0.0 Neutrophils # 12.1 H Lymphocytes # 1.4 Monocytes # 0.7 Eosinophils # 0.0 Basophils # 0.0 Nucleated Red Blood Cells # 0.0 Prothrombin Time 17.5 H Prothrombin Time Ratio 1.4 INR International Normalized Ratio 1.43 Activated Partial Thromboplast Time 30.4 Sodium Level 139 Potassium Level 4.4 Chloride Level 105 Carbon Dioxide Level 32 H Anion Gap 6 L Blood Urea Nitrogen 17 Creatinine 0.56 L Glucose Level 100 Calcium Level 8.8 Phosphorus Level 1.9 L Magnesium Level 1.8 Total Bilirubin 1.8 H Direct Bilirubin 0.90 #H Indirect Bilirubin 0.9 Aspartate Amino Transf (AST/SGOT) 35 Alanine Aminotransferase (ALT/SGPT) 53 Alkaline Phosphatase 338 H Total Protein 6.7 Albumin 3.4 Globulin 3.30 H Albumin/Globulin Ratio 1.03 Medications Medications Current Medications Ondansetron HCl (Zofran Inj) 4 mg Q6H PRN IV NAUSEA AND/OR VOMITING; Start at 19:30 Acetaminophen (Tylenol Tab) 650 mg Q6H PRN PO PAIN LEVEL 1-3 OR FEVER; Start at 19:30 Docusate Sodium (Colace) 100 mg Q12H PRN PO CONSTIPATION; Start 03/30/17 at 19: 30 Magnesium Hydroxide (Milk Of Mag) 30 ml DAILY PRN PO CONSTIPATION; Start at 19:30 Sodium Biphosphate/ Sodium Phosphate (Fleet Enema) 133 ml DAILY PRN [place] CONSTIPATION; Start 03/30/17 at 19:30 Pantoprazole 40 mg 40 mg DAILY@06 IV Last administered on 04/17/17 06:07; Admin Dose 40 MG; Start 03/31/17 at 06:00 Piperacillin Sod/ Tazobactam Sod (Zosyn 3.375gm/ 100 ml (Pmx)) 100 ml @ 200 mls /hr Q6 IVPB Last administered on 04/17/17 17:31; Admin Dose 200 MLS/HR; Start 03/31/17 at 00:00 Hydralazine HCl (Apresoline) 10 mg Q6H PRN IV ELEVATED BLOOD PRESSURE; Start at 19:30 Nitroglycerin (Nitroglycerin (Sl Tab) 0.4 Mg) 1 tab Q5M PRN SL ANGINA; Start at 19:30 Hydromorphone HCl (Dilaudid TIMING ADJUSTER) MG/HR CONTINUOUS R... Q4PCA IV Last administered on 04/16/17 00:11; Admin Dose 6 MG; Start 03/31/17 at 13:30 Escitalopram Oxalate (Lexapro) 20 mg DAILY PO Last administered on 04/17/17 08 :52; Admin Dose 20 MG; Start 04/11/17 at 09:00 Nystatin (Nystatin Susp) 5 ml QID PO Last administered on 04/17/17 16:57; Admin Dose 5 ML; Start 04/13/17 at 18:00 Potassium Chloride (Klor-Con 10) 10 meq BID@08,18 PO Last administered on 17:31; Admin Dose 10 MEQ; Start 04/17/17 at 08:00 Methylprednisolone Sodium Succinate (Solu-Medrol) 30 mg AM IV ; Start 04/18/17 at 09:00 DEBRA GILL NP April 17, 2017 19:20
[2017-04-17] MEDS: HYDROmorphONE 0.2 MG/ML PCA IV SCH (20:19)
--- NOTE | 2017-04-17 21:25 | CONS ---
Date/Time of Note Date/Time of Note DATE: 04/17/17 TIME: 21:24 Assessment/Plan Assessment/Plan Chief Complaint/Hosp Course 1. 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 postop , NOW WITH Metastatic dis in the liver lobular area of elevated T2 signal is seen in the central liver worrisome for a mass possibly cholangiocarcinoma and this causes prominent intrahepatic biliary ductal dilatation of both the left and right intrahepatic biliary ducts with central loss of signal at the area of the mass. CT and MRI- REVIEWED TUMOR MARKERS : ca 19-9 [id number] , c/w to tumor progression hepatobiliary consult noted- D/W D LEÓN POST drain placement in the right lobe of the liver- c/w abscess POST stenting across the anastomosis with IR. PTBD LFT - noted 2. Obstructive jaundice. Stable, ro stricture/recurrent tumor. MRCP/GI eval, hepatobiliary surgery consult- REVIEWED surgical f-up Dr Anderson noted POST biliary drainage by interventional radiology 3. Chronic Crohn's disease status post total proctocolectomy with J-pouch creation 2005. 4. Chronic primary sclerosing cholangitis w cholangiocarcinoma. Needs advanced care planning evaluated. Poor prognosis. Performance status questionable at this time for chemotherapy & bilirubin needs some improvement. 5. Malnutrition; oral feeds/Megace vs TPN 6. Active pouchitis? 7. Postop day 16 bd excision w cholecystectomy, excision of extrahepatic cbd and Isabell-en-Y hepaticojejunostomy. 8. Failure to thrive, may need snf 9. Anemia- WILL TRANSFUSE PRBC PRN 10. Reactive thrombocytosis 11. Dyslipidemia. POOR PS agree with transfer to SNF Problems: Consultation Date/Type/Reason Admit Date/Time March 30, 2017 at 18:53 Initial Consult Date 03/31/17 Type of Consultation: [facility] Referring Provider: HUMZA JAIME MD 24 HR Interval Summary Free Text/Dictation stable ALT.AST improved alkaline phosphatase 338,Total bilirubin 1.8 Exam/Review of Systems Vital Signs Vitals Vital Signs Date Time Temp Pulse Resp B/P Pulse Ox O2 Delivery O2 Flow Rate FiO2 04/17/17 20:45 98.0 51 17 118/58 99 Intake and Output 04/16/17 04/16/17 04/17/17 15:00 23:00 07:00 Intake Total 650 ml 1250 ml 500 ml Output Total 110 ml 55 ml 60 ml Balance 540 ml 1195 ml 440 ml Exam Constitutional: alert, frail, oriented, calm Psych: depression Neck: No jvd Respiratory: clear to auscultation, normal air movement Cardiovascular: regular rate and rhythm Gastrointestinal: other (right flank drainage bag x2 ), soft, tender Musculoskeletal: No nl gait and stance Neurological: PHYSICAL THERAPIST CLINIC DIRECTOR II-XII intact, nl mental status, nl speech Results Result Diagram: 04/17/17 0631 04/17/17 0631 Results 24 hrs Laboratory Tests Test 04/17/17 06:31 White Blood Count 14.4 #H Red Blood Count 3.17 L Hemoglobin 9.5 L Hematocrit 30.8 L Mean Corpuscular Volume 97.2 Mean Corpuscular Hemoglobin 30.0 Mean Corpuscular Hemoglobin Concent 30.8 L Red Cell Distribution Width 20.4 H Platelet Count 385 # Mean Platelet Volume 10.2 Neutrophils % 84.4 H Lymphocytes % 9.7 L Monocytes % 5.0 Eosinophils % 0.2 Basophils % 0.1 Nucleated Red Blood Cells % 0.0 Neutrophils # 12.1 H Lymphocytes # 1.4 Monocytes # 0.7 Eosinophils # 0.0 Basophils # 0.0 Nucleated Red Blood Cells # 0.0 Prothrombin Time 17.5 H Prothrombin Time Ratio 1.4 INR International Normalized Ratio 1.43 Activated Partial Thromboplast Time 30.4 Sodium Level 139 Potassium Level 4.4 Chloride Level 105 Carbon Dioxide Level 32 H Anion Gap 6 L Blood Urea Nitrogen 17 Creatinine 0.56 L Glucose Level 100 Calcium Level 8.8 Phosphorus Level 1.9 L Magnesium Level 1.8 Total Bilirubin 1.8 H Direct Bilirubin 0.90 #H Indirect Bilirubin 0.9 Aspartate Amino Transf (AST/SGOT) 35 Alanine Aminotransferase (ALT/SGPT) 53 Alkaline Phosphatase 338 H Total Protein 6.7 Albumin 3.4 Globulin 3.30 H Albumin/Globulin Ratio 1.03 Medications Medications Current Medications Ondansetron HCl (Zofran Inj) 4 mg Q6H PRN IV NAUSEA AND/OR VOMITING; Start at 19:30 Acetaminophen (Tylenol Tab) 650 mg Q6H PRN PO PAIN LEVEL 1-3 OR FEVER; Start at 19:30 Docusate Sodium (Colace) 100 mg Q12H PRN PO CONSTIPATION; Start 03/30/17 at 19: 30 Magnesium Hydroxide (Milk Of Mag) 30 ml DAILY PRN PO CONSTIPATION; Start at 19:30 Sodium Biphosphate/ Sodium Phosphate (Fleet Enema) 133 ml DAILY PRN [place] CONSTIPATION; Start 03/30/17 at 19:30 Pantoprazole (Protonix Iv) 40 mg DAILY@06 IV Last administered on 04/17/17 06: 07; Admin Dose 40 MG; Start 03/31/17 at 06:00 Hydralazine HCl (Apresoline) 10 mg Q6H PRN IV ELEVATED BLOOD PRESSURE; Start at 19:30 Nitroglycerin (Nitroglycerin (Sl Tab) 0.4 Mg) 1 tab Q5M PRN SL ANGINA; Start at 19:30 Hydromorphone HCl (Dilaudid MAINTENANCE TRUCK DRIVER) MG/HR CONTINUOUS R... Q4PCA IV Last administered on 04/17/17 20:19; Admin Dose 6 MG; Start 03/31/17 at 13:30 Escitalopram Oxalate (Lexapro) 20 mg DAILY PO Last administered on 04/17/17 08 :52; Admin Dose 20 MG; Start 04/11/17 at 09:00 Nystatin (Nystatin Susp) 5 ml QID PO Last administered on 04/17/17 16:57; Admin Dose 5 ML; Start 04/13/17 at 18:00 Potassium Chloride (Klor-Con 10) 10 meq BID@08,18 PO Last administered on 17:31; Admin Dose 10 MEQ; Start 04/17/17 at 08:00 Methylprednisolone Sodium Succinate (Solu-Medrol) 30 mg AM IV ; Start 04/18/17 at 09:00 Levofloxacin (Levaquin) 500 mg DAILY@06 NGT ; Start 04/18/17 at 06:00 Metronidazole (Flagyl) 500 mg Q8 GTB ; Start 04/17/17 at 22:00 KIN ESTEBAN MD April 17, 2017 21:25
[2017-04-17] MEDS ORDERED: metroNIDAZOLE 500 MG TAB GTB SCH (22:00)
[2017-04-18] VITALS (11 sets, daily range): BP systolic 102–127; BP diastolic 28–63; PULSE 41–96; RESP 15–18
[2017-04-18] MEDS: metroNIDAZOLE 500 MG TAB PO SCH ×3 (05:43→21:52)
[2017-04-18] MEDS: LEVOFLOXACIN 500 MG TAB NGT SCH (05:43)
[2017-04-18] MEDS: PANTOPRAZOLE 40 MG INJ IV SCH (05:44)
[2017-04-18 06:49] LABS: ADD SCAN DIFF NO
[2017-04-18 07:04] LABS: BASOPHILS % 0.1 % (0.0-2.0); EOSINOPHILS # 0.1 10^3/ul (0.0-0.5); EOSINOPHILS % 0.8 % (0.0-7.0); HEMATOCRIT 30.7 % (42.0-52.0); HEMOGLOBIN 9.5 g/dl (14.0-18.0); LYMPHOCYTES # 1.8 10^3/ul (0.8-2.9); LYMPHOCYTES % 16.2 % (15.0-51.0); MEAN CORPUSCULAR HGB CONC 30.9 g/dl (32.0-37.0); MEAN CORPUSCULAR VOLUME 96.8 fl (82.0-101.0); MEAN PLATELET VOLUME 9.9 fl (7.4-10.4); MONOCYTE # 0.8 10^3/ul (0.3-0.9); MONOCYTES % 7.1 % (0.0-11.0); NEUTROPHIL # 8.3 10^3/ul (1.6-7.5); NEUTROPHILS % 75.3 % (39.0-77.0); PLATELET COUNT 377 10^3/UL (140-415); RED BLOOD COUNT 3.17 10^6/ul (4.70-6.10); RED CELL DISTRIBUTION WIDTH 19.9 % (11.5-14.5)
[2017-04-18 07:24] LABS: ALBUMIN 3.4 g/dl (3.3-4.9); ALBUMIN/GLOBULIN RATIO 1.03; BILIRUBIN,INDIRECT 0.9 mg/dl (0-1.1); BILIRUBIN,TOTAL 1.9 mg/dl (0.2-1.3); CALCIUM 8.7 mg/dl (8.4-10.2); CREATININE 0.59 mg/dl (0.61-1.24); POTASSIUM 3.9 mmol/L (3.5-5.1); TOTAL PROTEIN 6.7 g/dl (6.1-8.1)
--- NOTE | 2017-04-18 09:07 | PN ---
DATE: 04/17/2017 CARDIOLOGY FOLLOWUP SUBJECTIVE: discussed with the staff. Rhythm strip was reviewed. The patient remains in sin us bradycardia with no chest pain or pressure, no syncope. No presyncope. Has pain in the ab domen. MEDICATIONS: Reviewed. PHYSICAL EXAMINATION: VITAL SIGNS: Temperature 98, heart rate of , blood pressure 107/66, respiratory rate of 16. HEENT: Normocephalic, atraumatic. Pupils are . CARDIOVASCULAR: Bradycardia. PULMONARY: No wheezes. GASTROINTESTINAL: Soft. No rebound or guarding. . EXTREMITIES: Positive lower extremity edema. NEUROLOGIC: Awake and alert. PSYCHIATRIC: Depressed mood, otherwise pleasant. LABORATORY DATA: WBC of 14.4, hemoglobin 9.5, platelet count of 385. Sodium 139, potassium 4.4, BU N of 17, creatinine 0.53, glucose 100. ASSESSMENT AND PLAN: 1. Sick sinus syndrome, sinus bradycardia, currently asymptomatic. We would monitor on ly at this point. 2. History of metastatic cholangiocarcinoma, metastases to the liver and lymph nodes. Follow up [facility] surgery and gastroenterology. 3. History of chronic primary sclerosing cholangitis. 4. History of Crohn disease, status post prior proctocolectomy and J-pouch creation in 2005. 5. Malnutrition. 6. Anemia. 7. Depression. 8. Status post biliary drain placement . RECOMMENDATIONS: We will continue with the current cardiac care. Code status is DNR. Conservative medical therapy from the cardiac standpoint. Electrolytes will be corrected as needed. Dictated By: POOJA CHAVEZ MD AV/JASMYNE Conf#: [id number] DID#: [id number] CC: YESSICA SALINAS MD;*EndCC*
[2017-04-18] MEDS: POTASSIUM CHLORIDE (SR) 10 MEQ TAB PO SCH ×2 (10:09→17:40)
[2017-04-18] MEDS: METHYLPREDNISOLONE 40 MG INJ IV SCH (10:09)
[2017-04-18] MEDS: ESCITALOPRAM 10 MG TAB PO SCH (10:09)
[2017-04-18] MEDS: NYSTATIN SUSP 5 ML CUP PO SCH ×4 (10:11→21:52)
--- NOTE | 2017-04-18 13:45 | CONS ---
Date/Time of Note Date/Time of Note DATE: 04/18/17 TIME: 13:44 Assessment/Plan Assessment/Plan Chief Complaint/Hosp Course SUBJECTIVE: Patient is alert, denies pain, looks comfortable, no fevers ANTIMICROBIALS: levaquin, Flagyl MICROBIOLOGY: Intra-abdominal fluid culture growing Klebsiella pneumoniae and Bacteroides fragilis. INDWELLINGS: The patient has two intra-abdominal drainages. PHYSICAL EXAMINATION: GENERAL: This is a well-developed, elderly, cachectic man who is alert, in no distress. HEENT: Head atraumatic, normocephalic. Sclerae anicteric. Buccal mucosa dry. NECK: Supple, trachea midline. CHEST: Rise symmetrical. Breath sounds clear, diminished to bases. HEART: S1, S2. ABDOMEN: Soft, bowel tones present. EXTREMITIES: Without cyanosis. ASSESSMENT: 1. Systemic inflammatory response syndrome with persistent leukocytosis, secondary to intra-abdominal process, possibly also steroid induced. 2. Biliary obstruction status post fluoroscopic-guided biliary drainage catheter placement with exchange on 04/12/2017. 3. Metastatic cholangiocarcinoma to lymph nodes and liver. 5. History of primary sclerosing cholangitis since 2008. 6. Cachexia. PLAN: The patient remains stable. WBC decreasing, he is being evaluated by hospice, continue abx DW patient/ at bedside Problems: Consultation Date/Type/Reason Admit Date/Time March 30, 2017 at 18:53 Initial Consult Date 03/31/17 Type of Consultation: ID Referring Provider: HUMZA JAIME MD Exam/Review of Systems Vital Signs Vitals Vital Signs Date Time Temp Pulse Resp B/P Pulse Ox O2 Delivery O2 Flow Rate FiO2 04/18/17 12:00 18 04/18/17 12:00 96 04/18/17 11:53 98.0 102/28 98 Intake and Output 04/17/17 04/17/17 04/18/17 15:00 23:00 07:00 Intake Total 800 ml 300 ml Output Total 45 ml 100 ml Balance 755 ml 200 ml Results Result Diagram: 04/18/17 0615 04/18/17 0615 Results 24 hrs Laboratory Tests Test 04/18/17 06:15 White Blood Count 11.0 #H Red Blood Count 3.17 L Hemoglobin 9.5 L Hematocrit 30.7 L Mean Corpuscular Volume 96.8 Mean Corpuscular Hemoglobin 30.0 Mean Corpuscular Hemoglobin Concent 30.9 L Red Cell Distribution Width 19.9 H Platelet Count 377 Mean Platelet Volume 9.9 Neutrophils % 75.3 Lymphocytes % 16.2 Monocytes % 7.1 Eosinophils % 0.8 Basophils % 0.1 Nucleated Red Blood Cells % 0.0 Neutrophils # 8.3 H Lymphocytes # 1.8 Monocytes # 0.8 Eosinophils # 0.1 Basophils # 0.0 Nucleated Red Blood Cells # 0.0 Sodium Level 138 Potassium Level 3.9 Chloride Level 104 Carbon Dioxide Level 32 H Anion Gap 6 L Blood Urea Nitrogen 15 Creatinine 0.59 L Glucose Level 76 Calcium Level 8.7 Total Bilirubin 1.9 H Direct Bilirubin 1.00 H Indirect Bilirubin 0.9 Aspartate Amino Transf (AST/SGOT) 43 Alanine Aminotransferase (ALT/SGPT) 63 Alkaline Phosphatase 328 H Total Protein 6.7 Albumin 3.4 Globulin 3.30 H Albumin/Globulin Ratio 1.03 Medications Medications Current Medications Ondansetron HCl (Zofran Inj) 4 mg Q6H PRN IV NAUSEA AND/OR VOMITING; Start at 19:30 Acetaminophen (Tylenol Tab) 650 mg Q6H PRN PO PAIN LEVEL 1-3 OR FEVER; Start at 19:30 Docusate Sodium (Colace) 100 mg Q12H PRN PO CONSTIPATION; Start 03/30/17 at 19: 30 Magnesium Hydroxide (Milk Of Mag) 30 ml DAILY PRN PO CONSTIPATION; Start at 19:30 Sodium Biphosphate/ Sodium Phosphate (Fleet Enema) 133 ml DAILY PRN [place] CONSTIPATION; Start 03/30/17 at 19:30 Pantoprazole (Protonix Iv) 40 mg DAILY@06 IV Last administered on 04/18/17 05: 44; Admin Dose 40 MG; Start 03/31/17 at 06:00 Hydralazine HCl (Apresoline) 10 mg Q6H PRN IV ELEVATED BLOOD PRESSURE; Start at 19:30 Nitroglycerin (Nitroglycerin (Sl Tab) 0.4 Mg) 1 tab Q5M PRN SL ANGINA; Start at 19:30 Hydromorphone HCl (Dilaudid PROFESSOR OF FINE ART) MG/HR CONTINUOUS R... Q4PCA IV Last administered on 04/17/17 20:19; Admin Dose 6 MG; Start 03/31/17 at 13:30 Escitalopram Oxalate (Lexapro) 20 mg DAILY PO Last administered on 04/18/17 10: 09; Admin Dose 20 MG; Start 04/11/17 at 09:00 Nystatin (Nystatin Susp) 5 ml QID PO Last administered on 04/18/17 13:11; Admin Dose 5 ML; Start 04/13/17 at 18:00 Potassium Chloride (Klor-Con 10) 10 meq BID@08,18 PO Last administered on 10:09; Admin Dose 10 MEQ; Start 04/17/17 at 08:00 Methylprednisolone Sodium Succinate (Solu-Medrol) 30 mg AM IV Last administered on 04/18/17 10:09; Admin Dose 30 MG; Start 04/18/17 at 09:00 Levofloxacin (Levaquin) 500 mg DAILY@06 NGT Last administered on 04/18/17 05:43 ; Admin Dose 500 MG; Start 04/18/17 at 06:00 Metronidazole (Flagyl) 500 mg Q8 PO Last administered on 04/18/17 13:11; Admin Dose 500 MG; Start 04/18/17 at 06:00 DEBRA GILL NP Apr 18, 2017 13:45
--- NOTE | 2017-04-18 16:34 | PN ---
Date/Time of Note Date/Time of Note DATE: 04/18/17 TIME: 16:33 Assessment/Plan VTE Prophylaxis VTE Prophylaxis Intervention: SCD's Lines/Catheters IV [facility]ter [facility] (from [facility] Peripheral IV Urinary Cath still in place: No Assessment/Plan Chief Complaint/Hosp Course ASSESSMENT AND PLAN: 1. Metastatic cholangiocarcinoma with metastasis to the liver and lymph nodes. Status post cholecystectomy and excision of hepatic common bile duct with Isabell-en-Y hepaticojejunostomy on 01/24/2017. The patient being followed by oncology and hepatic surgeon. Poor prognosis. Continued drain care Liver function test has been improving 2. History of Crohn's disease status post a proctocolectomy with J-pouch creation in 2005. 3. History of chronic primary sclerosing cholangitis. Continue IV antibiotics as per ID 4. Sinus bradycardia, asymptomatic. Cardiology following. 5. Chronic back pain. Lumbar spine CT showing osteopenia with mild L2 compression fracture. Continue on analgesics. 6. Protein calorie malnutrition. Dietary supplements. 7. Normocytic normochromic anemia, most probably anemia of chronic disease. Monitor H and H closely. 8. Depression. Continue Lexapro. 9. Status post placement of left biliary drain on 04/09/2017. Continue management as per surgery. 10. Status post placement of a right biliary drain on 03/24/2017, management as per surgery. On antibiotics as per infectious disease. DVT prophylaxis with bilateral sequential compression devices. Gastrointestinal prophylaxis. Proton pump inhibitors intervention planned. Prognosis: Guarded Continue monitor drain by hepatic surgeon manager advanced for senior living facility placement Disposition: Transfer to senior living facility when clear by surgery Problems: Subjective 24 Hr Interval Summary Free Text/Dictation No acute changes Patient tolerated oral intake Positive bowel movement Denies any chest pain or shortness of breath Waiting for placement Exam/Review of Systems Vital Signs Vitals Vital Signs Date Time Temp Pulse Resp B/P Pulse Ox O2 Delivery O2 Flow Rate FiO2 04/18/17 12:00 18 04/18/17 12:00 96 04/18/17 11:53 98.0 102/28 98 Intake and Output 04/17/17 04/17/17 04/18/17 15:00 23:00 07:00 Intake Total 800 ml 300 ml Output Total 45 ml 100 ml Balance 755 ml 200 ml Exam General: The patient is underweight and jaundice, Not in acute distress. HEENT: Conjunctivitis is jaundiced normocephalic. The pupils are equal and round . Neck: Supple with full range of motion. Chest: Normal expansion of the thorax during inspiration Lungs: Clear to auscultation bilaterally Heart: Normal S1-S2, Regular rhythm and rate. Abdomen: Soft , nontender, nondistended , bowel sounds are present. Drain in place 2 Extremities: Normal to inspection, no edema no cyanosis Neurologic: Normal mental status,The patient is awake, alert and oriented . Results Result Diagram: 04/18/17 0615 04/18/17 0615 Results 24 hrs Laboratory Tests Test 04/18/17 06:15 White Blood Count 11.0 #H Red Blood Count 3.17 L Hemoglobin 9.5 L Hematocrit 30.7 L Mean Corpuscular Volume 96.8 Mean Corpuscular Hemoglobin 30.0 Mean Corpuscular Hemoglobin Concent 30.9 L Red Cell Distribution Width 19.9 H Platelet Count 377 Mean Platelet Volume 9.9 Neutrophils % 75.3 Lymphocytes % 16.2 Monocytes % 7.1 Eosinophils % 0.8 Basophils % 0.1 Nucleated Red Blood Cells % 0.0 Neutrophils # 8.3 H Lymphocytes # 1.8 Monocytes # 0.8 Eosinophils # 0.1 Basophils # 0.0 Nucleated Red Blood Cells # 0.0 Sodium Level 138 Potassium Level 3.9 Chloride Level 104 Carbon Dioxide Level 32 H Anion Gap 6 L Blood Urea Nitrogen 15 Creatinine 0.59 L Glucose Level 76 Calcium Level 8.7 Total Bilirubin 1.9 H Direct Bilirubin 1.00 H Indirect Bilirubin 0.9 Aspartate Amino Transf (AST/SGOT) 43 Alanine Aminotransferase (ALT/SGPT) 63 Alkaline Phosphatase 328 H Total Protein 6.7 Albumin 3.4 Globulin 3.30 H Albumin/Globulin Ratio 1.03 Medications Medications Current Medications Ondansetron HCl (Zofran Inj) 4 mg Q6H PRN IV NAUSEA AND/OR VOMITING; Start at 19:30 Acetaminophen (Tylenol Tab) 650 mg Q6H PRN PO PAIN LEVEL 1-3 OR FEVER; Start at 19:30 Docusate Sodium (Colace) 100 mg Q12H PRN PO CONSTIPATION; Start 03/30/17 at 19: 30 Magnesium Hydroxide (Milk Of Mag) 30 ml DAILY PRN PO CONSTIPATION; Start at 19:30 Sodium Biphosphate/ Sodium Phosphate (Fleet Enema) 133 ml DAILY PRN [place] CONSTIPATION; Start 03/30/17 at 19:30 Pantoprazole (Protonix Iv) 40 mg DAILY@06 IV Last administered on 04/18/17 05: 44; Admin Dose 40 MG; Start 03/31/17 at 06:00 Hydralazine HCl (Apresoline) 10 mg Q6H PRN IV ELEVATED BLOOD PRESSURE; Start at 19:30 Nitroglycerin (Nitroglycerin (Sl Tab) 0.4 Mg) 1 tab Q5M PRN SL ANGINA; Start at 19:30 Hydromorphone HCl (Dilaudid BIOFUELS PLANT OPERATIONS ENGINEER) MG/HR CONTINUOUS R... Q4PCA IV Last administered on 04/17/17 20:19; Admin Dose 6 MG; Start 03/31/17 at 13:30 Escitalopram Oxalate (Lexapro) 20 mg DAILY PO Last administered on 04/18/17 10: 09; Admin Dose 20 MG; Start 04/11/17 at 09:00 Nystatin (Nystatin Susp) 5 ml QID PO Last administered on 04/18/17 13:11; Admin Dose 5 ML; Start 04/13/17 at 18:00 Potassium Chloride (Klor-Con 10) 10 meq BID@08,18 PO Last administered on 10:09; Admin Dose 10 MEQ; Start 04/17/17 at 08:00 Methylprednisolone Sodium Succinate (Solu-Medrol) 30 mg AM IV Last administered on 04/18/17 10:09; Admin Dose 30 MG; Start 04/18/17 at 09:00 Levofloxacin (Levaquin) 500 mg DAILY@06 NGT Last administered on 04/18/17 05:43 ; Admin Dose 500 MG; Start 04/18/17 at 06:00 Metronidazole (Flagyl) 500 mg Q8 PO Last administered on 04/18/17 13:11; Admin Dose 500 MG; Start 04/18/17 at 06:00 YESSICA SALINAS MD Apr 18, 2017 16:34
--- NOTE | 2017-04-18 22:55 | CONS ---
Date/Time of Note Date/Time of Note DATE: 04/18/17 TIME: 22:54 Assessment/Plan Assessment/Plan Chief Complaint/Hosp Course 1. 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 postop , NOW WITH Metastatic dis in the liver lobular area of elevated T2 signal is seen in the central liver worrisome for a mass possibly cholangiocarcinoma and this causes prominent intrahepatic biliary ductal dilatation of both the left and right intrahepatic biliary ducts with central loss of signal at the area of the mass. CT and MRI- REVIEWED TUMOR MARKERS : ca 19-9 [id number] , c/w to tumor progression hepatobiliary consult noted- D/W D LEÓN POST drain placement in the right lobe of the liver- c/w abscess POST stenting across the anastomosis with IR. PTBD LFT - noted 2. Obstructive jaundice. Stable, ro stricture/recurrent tumor. MRCP/GI eval, hepatobiliary surgery consult- REVIEWED surgical f-up Dr Anderson noted POST biliary drainage by interventional radiology 3. Chronic Crohn's disease status post total proctocolectomy with J-pouch creation 2005. 4. Chronic primary sclerosing cholangitis w cholangiocarcinoma. Needs advanced care planning evaluated. Poor prognosis. Performance status questionable at this time for chemotherapy & bilirubin needs some improvement. 5. Malnutrition; oral feeds/Megace vs TPN 6. Active pouchitis? 7. Postop day 16 bd excision w cholecystectomy, excision of extrahepatic cbd and Isabell-en-Y hepaticojejunostomy. 8. Failure to thrive, may need snf 9. Anemia- WILL TRANSFUSE PRBC PRN 10. Reactive thrombocytosis 11. Dyslipidemia. POOR PS agree with transfer to SNF Problems: Consultation Date/Type/Reason Admit Date/Time March 30, 2017 at 18:53 Initial Consult Date 03/31/17 Type of Consultation: [facility] Referring Provider: HUMZA JAIME MD 24 HR Interval Summary Free Text/Dictation STABLE Waiting for placement Exam/Review of Systems Vital Signs Vitals Vital Signs Date Time Temp Pulse Resp B/P Pulse Ox O2 Delivery O2 Flow Rate FiO2 04/18/17 20:20 56 04/18/17 20:00 17 04/18/17 20:00 98.1 111/62 100 Intake and Output 04/17/17 04/17/17 04/18/17 15:00 23:00 07:00 Intake Total 800 ml 300 ml Output Total 45 ml 100 ml Balance 755 ml 200 ml Exam Constitutional: alert, frail, oriented, calm Psych: depression Neck: No jvd Respiratory: clear to auscultation, normal air movement Cardiovascular: regular rate and rhythm Gastrointestinal: other (right flank drainage bag x2 ), soft, tender Musculoskeletal: No nl gait and stance Neurological: BENCH SCIENTIST II-XII intact, nl mental status, nl speech Results Result Diagram: 04/18/17 0615 04/18/17 0615 Results 24 hrs Laboratory Tests Test 04/18/17 06:15 White Blood Count 11.0 #H Red Blood Count 3.17 L Hemoglobin 9.5 L Hematocrit 30.7 L Mean Corpuscular Volume 96.8 Mean Corpuscular Hemoglobin 30.0 Mean Corpuscular Hemoglobin Concent 30.9 L Red Cell Distribution Width 19.9 H Platelet Count 377 Mean Platelet Volume 9.9 Neutrophils % 75.3 Lymphocytes % 16.2 Monocytes % 7.1 Eosinophils % 0.8 Basophils % 0.1 Nucleated Red Blood Cells % 0.0 Neutrophils # 8.3 H Lymphocytes # 1.8 Monocytes # 0.8 Eosinophils # 0.1 Basophils # 0.0 Nucleated Red Blood Cells # 0.0 Sodium Level 138 Potassium Level 3.9 Chloride Level 104 Carbon Dioxide Level 32 H Anion Gap 6 L Blood Urea Nitrogen 15 Creatinine 0.59 L Glucose Level 76 Calcium Level 8.7 Total Bilirubin 1.9 H Direct Bilirubin 1.00 H Indirect Bilirubin 0.9 Aspartate Amino Transf (AST/SGOT) 43 Alanine Aminotransferase (ALT/SGPT) 63 Alkaline Phosphatase 328 H Total Protein 6.7 Albumin 3.4 Globulin 3.30 H Albumin/Globulin Ratio 1.03 Medications Medications Current Medications Ondansetron HCl (Zofran Inj) 4 mg Q6H PRN IV NAUSEA AND/OR VOMITING; Start at 19:30 Acetaminophen (Tylenol Tab) 650 mg Q6H PRN PO PAIN LEVEL 1-3 OR FEVER; Start at 19:30 Docusate Sodium (Colace) 100 mg Q12H PRN PO CONSTIPATION; Start 03/30/17 at 19: 30 Magnesium Hydroxide (Milk Of Mag) 30 ml DAILY PRN PO CONSTIPATION; Start at 19:30 Sodium Biphosphate/ Sodium Phosphate (Fleet Enema) 133 ml DAILY PRN [place] CONSTIPATION; Start 03/30/17 at 19:30 Pantoprazole (Protonix Iv) 40 mg DAILY@06 IV Last administered on 04/18/17 05: 44; Admin Dose 40 MG; Start 03/31/17 at 06:00 Hydralazine HCl (Apresoline) 10 mg Q6H PRN IV ELEVATED BLOOD PRESSURE; Start at 19:30 Nitroglycerin (Nitroglycerin (Sl Tab) 0.4 Mg) 1 tab Q5M PRN SL ANGINA; Start at 19:30 Hydromorphone HCl (Dilaudid ANIMAL ECOLOGIST) MG/HR CONTINUOUS R... Q4PCA IV Last administered on 04/17/17 20:19; Admin Dose 6 MG; Start 03/31/17 at 13:30 Escitalopram Oxalate (Lexapro) 20 mg DAILY PO Last administered on 04/18/17 10: 09; Admin Dose 20 MG; Start 04/11/17 at 09:00 Nystatin (Nystatin Susp) 5 ml QID PO Last administered on 04/18/17 21:52; Admin Dose 5 ML; Start 04/13/17 at 18:00 Potassium Chloride (Klor-Con 10) 10 meq BID@08,18 PO Last administered on 17:40; Admin Dose 10 MEQ; Start 04/17/17 at 08:00 Methylprednisolone Sodium Succinate (Solu-Medrol) 30 mg AM IV Last administered on 04/18/17 10:09; Admin Dose 30 MG; Start 04/18/17 at 09:00 Levofloxacin (Levaquin) 500 mg DAILY@06 NGT Last administered on 04/18/17 05:43 ; Admin Dose 500 MG; Start 04/18/17 at 06:00 Metronidazole (Flagyl) 500 mg Q8 PO Last administered on 04/18/17 21:52; Admin Dose 500 MG; Start 04/18/17 at 06:00 KIN ESTEBAN MD Apr 18, 2017 22:55
[2017-04-19] VITALS (11 sets, daily range): BP systolic 96–136; BP diastolic 62–79; PULSE 45–61; RESP 15–20
[2017-04-19] MEDS: PANTOPRAZOLE 40 MG INJ IV SCH (05:29)
[2017-04-19] MEDS: metroNIDAZOLE 500 MG TAB PO SCH ×3 (05:29→21:27)
[2017-04-19] MEDS: LEVOFLOXACIN 500 MG TAB NGT SCH (05:29)
--- NOTE | 2017-04-19 06:59 | PN ---
DATE: 04/18/2017 CARDIOLOGY FOLLOWUP SUBJECTIVE: Discussed with the staff. Rhythm strip was reviewed. The patient remained in sinus rh ythm, sinus bradycardia. No syncope, no presyncope. He said his breathing is doing better, slightl y today. He has mild discomfort at the site of the tubes in the abdomen. MEDICATIONS: Reviewed. PHYSICAL EXAMINATION: VITAL SIGNS: Temperature 98, heart rate of 58, blood pressure 114/59, respiratory rate of 18, satur ating 98%. HEENT: Normocephalic, atraumatic. Thin, cachectic-looking gentleman in no acute distress. CARDIOVASCULAR: Bradycardic, systolic murmur. PULMONARY: With no wheezes or rhonchi. GASTROINTESTINAL: Soft, status post surgery and drainage tube. Mild tenderness to palpation. EXTREMITIES: With no significant lower extremity edema. NEUROLOGIC: Awake and alert. LABORATORY: WBC of 11, hemoglobin 9.5, platelets 377. Sodium 138, potassium 3.9, BUN of 15, creati nine of 159, glucose 76. ASSESSMENT AND PLAN: 1. Sick sinus syndrome with marked sinus bradycardia; however, appeared to be asymptomatic. Will c ontinue to monitor only. 2. Metastatic cholangiocarcinoma with metastases to the liver and lymph nodes, status post multiple surgeries. 3. History of Crohn disease and proctocolectomy and J-pouch creation in 2005. 4. History of primary sclerosing cholangitis. 5. Severe malnutrition. 6. Anemia. 7. Depression. RECOMMENDATIONS: We will continue with the current cardiac care, monitor only at this point. Code status is DNR. Follow up with surgical recommendations. Dictated By: POOJA BISHOP/JASMYNE Conf#: [id number] DID#: [id number]
[2017-04-19] MEDS: NYSTATIN SUSP 5 ML CUP PO SCH ×4 (09:20→21:27)
[2017-04-19] MEDS: METHYLPREDNISOLONE 40 MG INJ IV SCH (09:20)
[2017-04-19] MEDS: ESCITALOPRAM 10 MG TAB PO SCH (09:20)
[2017-04-19] MEDS: POTASSIUM CHLORIDE (SR) 10 MEQ TAB PO SCH ×2 (09:23→18:02)
[2017-04-19] MEDS: HYDROmorphONE 0.2 MG/ML PCA IV SCH (11:56)
--- NOTE | 2017-04-19 12:15 | PDOCDIS ---
Discharge Instructions CONDITION Patient Condition: Fair HOME CARE INSTRUCTIONS: Special Diet: Mechanical Soft ACTIVITY: Activity Restrictions: Special Exercises FOLLOW UP/APPOINTMENTS Appointments Follow up with Dr. Ernestine Anderson as out-pt Follow-up with recreational vehicle resort manager oncologist as outpatient YESSICA SALINAS MD Apr 19, 2017 12:15
--- NOTE | 2017-04-19 12:28 | PN ---
Date/Time of Note Date/Time of Note DATE: 04/19/17 TIME: 12:27 Assessment/Plan VTE Prophylaxis VTE Prophylaxis Intervention: SCD's Lines/Catheters [facility] Peripheral IV Urinary Cath still in place: No Assessment/Plan Chief Complaint/Hosp Course ASSESSMENT AND PLAN: 1. Metastatic cholangiocarcinoma with metastasis to the liver and lymph nodes. Status post cholecystectomy and excision of hepatic common bile duct with Isabell-en-Y hepaticojejunostomy on 01/24/2017. The patient being followed by oncology and hepatic surgeon. Poor prognosis. Continued drain care Liver function test has been improving 2. History of Crohn's disease status post a proctocolectomy with J-pouch creation in 2005. 3. History of chronic primary sclerosing cholangitis. Continue IV antibiotics as per ID 4. Sinus bradycardia, asymptomatic. Cardiology following. 5. Chronic back pain. Lumbar spine CT showing osteopenia with mild L2 compression fracture. Continue on analgesics. 6. Protein calorie malnutrition. Dietary supplements. 7. Normocytic normochromic anemia, most probably anemia of chronic disease. Monitor H and H closely. 8. Depression. Continue Lexapro. 9. Status post placement of left biliary drain on 04/09/2017. Continue management as per surgery. 10. Status post placement of a right biliary drain on 03/24/2017, management as per surgery. On antibiotics as per infectious disease. DVT prophylaxis with bilateral sequential compression devices. Gastrointestinal prophylaxis. Proton pump inhibitors intervention planned. Prognosis: Guarded Continue monitor drain by hepatic surgeon lead generation marketing manager for nursing home facility placement Disposition: Transfer to nursing home facility when clear by surgery Problems: Subjective 24 Hr Interval Summary Free Text/Dictation No acute changes Patient is tolerating p.o. intake No nausea vomiting diarrhea Ambulating with max assist Exam/Review of Systems Vital Signs Vitals Vital Signs Date Time Temp Pulse Resp B/P Pulse Ox O2 Delivery O2 Flow Rate FiO2 04/19/17 12:00 18 04/19/17 12:00 61 04/19/17 07:35 98.3 109/62 100 Intake and Output 04/18/17 04/18/17 04/19/17 15:00 23:00 07:00 Intake Total 800 ml 300 ml Output Total 180 ml 225 ml Balance 620 ml 75 ml Exam General: The patient is well-developed, Not in acute distress. HEENT: Conjunctivitis is jaundiced, normocephalic. The pupils are equal and round . Neck: Supple Chest: Normal expansion of the thorax during inspiration Lungs: Clear to auscultation bilaterally Heart: Normal S1-S2, Regular rhythm and rate. Abdomen: Soft , nontender, nondistended , bowel sounds are present. Drain in place 2 Extremities: Normal to inspection, no edema no cyanosis Neurologic: Normal mental status,The patient is awake, alert and oriented . Results Result Diagram: 04/18/1715 04/18/1715 Medications Medications Current Medications Ondansetron HCl (Zofran Inj) 4 mg Q6H PRN IV NAUSEA AND/OR VOMITING; Start at 19:30 Acetaminophen (Tylenol Tab) 650 mg Q6H PRN PO PAIN LEVEL 1-3 OR FEVER; Start at 19:30 Docusate Sodium (Colace) 100 mg Q12H PRN PO CONSTIPATION; Start 03/30/17 at 19: 30 Magnesium Hydroxide (Milk Of Mag) 30 ml DAILY PRN PO CONSTIPATION; Start at 19:30 Sodium Biphosphate/ Sodium Phosphate (Fleet Enema) 133 ml DAILY PRN [place] CONSTIPATION; Start 03/30/17 at 19:30 Pantoprazole (Protonix Iv) 40 mg DAILY@06 IV Last administered on 04/19/17 05: 29; Admin Dose 40 MG; Start 03/31/17 at 06:00 Hydralazine HCl (Apresoline) 10 mg Q6H PRN IV ELEVATED BLOOD PRESSURE; Start at 19:30 Nitroglycerin (Nitroglycerin (Sl Tab) 0.4 Mg) 1 tab Q5M PRN SL ANGINA; Start at 19:30 Hydromorphone HCl (Dilaudid APPLIANCES SAMPLE MAKER) MG/HR CONTINUOUS R... Q4PCA IV Last administered on 04/19/17 11:56; Admin Dose 6 MG; Start 03/31/17 at 13:30 Escitalopram Oxalate (Lexapro) 20 mg DAILY PO Last administered on 04/19/17 09: 20; Admin Dose 20 MG; Start 04/11/17 at 09:00 Nystatin (Nystatin Susp) 5 ml QID PO Last administered on 04/19/17 11:57; Admin Dose 5 ML; Start 04/13/17 at 18:00 Potassium Chloride (Klor-Con 10) 10 meq BID@08,18 PO Last administered on 09:23; Admin Dose 10 MEQ; Start 04/17/17 at 08:00 Methylprednisolone Sodium Succinate (Solu-Medrol) 30 mg AM IV Last administered on 04/19/17 09:20; Admin Dose 30 MG; Start 04/18/17 at 09:00 Levofloxacin (Levaquin) 500 mg DAILY@06 NGT Last administered on 04/19/17 05:29 ; Admin Dose 500 MG; Start 04/18/17 at 06:00 Metronidazole (Flagyl) 500 mg Q8 PO Last administered on 04/19/17 05:29; Admin Dose 500 MG; Start 04/18/17 at 06:00 YESSICA SALINAS MD Apr 19, 2017 12:28
--- NOTE | 2017-04-19 13:55 | CONS ---
Date/Time of Note Date/Time of Note DATE: 04/19/17 TIME: 13:54 Assessment/Plan Assessment/Plan Chief Complaint/Hosp Course SUBJECTIVE: Patient is alert, looks comfortable, no fevers ANTIMICROBIALS: Levaquin, Flagyl MICROBIOLOGY: Intra-abdominal fluid culture growing Klebsiella pneumoniae and Bacteroides fragilis. INDWELLINGS: The patient has two intra-abdominal drainages. PHYSICAL EXAMINATION: GENERAL: This is a well-developed, elderly, cachectic man who is alert, in no distress. HEENT: Head atraumatic, normocephalic. Sclerae anicteric. Buccal mucosa dry. NECK: Supple, trachea midline. CHEST: Rise symmetrical. Breath sounds clear, diminished to bases. HEART: S1, S2. ABDOMEN: Soft, bowel tones present. EXTREMITIES: Without cyanosis. ASSESSMENT: 1. Systemic inflammatory response syndrome with persistent leukocytosis, secondary to intra-abdominal process, possibly also steroid induced. 2. Biliary obstruction status post fluoroscopic-guided biliary drainage catheter placement with exchange on 04/12/2017. 3. Metastatic cholangiocarcinoma to lymph nodes and liver. 5. History of primary sclerosing cholangitis since 2008. 6. Cachexia. PLAN: The patient remains stable, continue abx, pending dc home with hospice [facility] staff Problems: Consultation Date/Type/Reason Admit Date/Time March 30, 2017 at 18:53 Initial Consult Date 03/31/17 Type of Consultation: id Referring Provider: HUMZA JAIME MD Exam/Review of Systems Vital Signs Vitals Vital Signs Date Time Temp Pulse Resp B/P Pulse Ox O2 Delivery O2 Flow Rate FiO2 04/19/17 12:00 18 04/19/17 12:00 61 04/19/17 07:35 98.3 109/62 100 Intake and Output 04/18/17 04/18/17 04/19/17 15:00 23:00 07:00 Intake Total 800 ml 300 ml Output Total 180 ml 225 ml Balance 620 ml 75 ml Results Result Diagram: 04/18/1715 04/18/17614 Medications Medications Current Medications Ondansetron HCl (Zofran Inj) 4 mg Q6H PRN IV NAUSEA AND/OR VOMITING; Start at 19:30 Acetaminophen (Tylenol Tab) 650 mg Q6H PRN PO PAIN LEVEL 1-3 OR FEVER; Start at 19:30 Docusate Sodium (Colace) 100 mg Q12H PRN PO CONSTIPATION; Start 03/30/17 at 19: 30 Magnesium Hydroxide (Milk Of Mag) 30 ml DAILY PRN PO CONSTIPATION; Start at 19:30 Sodium Biphosphate/ Sodium Phosphate (Fleet Enema) 133 ml DAILY PRN [place] CONSTIPATION; Start 03/30/17 at 19:30 Pantoprazole (Protonix Iv) 40 mg DAILY@06 IV Last administered on 04/19/17 05: 29; Admin Dose 40 MG; Start 03/31/17 at 06:00 Hydralazine HCl (Apresoline) 10 mg Q6H PRN IV ELEVATED BLOOD PRESSURE; Start at 19:30 Nitroglycerin (Nitroglycerin (Sl Tab) 0.4 Mg) 1 tab Q5M PRN SL ANGINA; Start at 19:30 Hydromorphone HCl (Dilaudid AVIATION CONSULTANT) MG/HR CONTINUOUS R... Q4PCA IV Last administered on 04/19/17 11:56; Admin Dose 6 MG; Start 03/31/17 at 13:30 Escitalopram Oxalate (Lexapro) 20 mg DAILY PO Last administered on 04/19/17 09: 20; Admin Dose 20 MG; Start 04/11/17 at 09:00 Nystatin (Nystatin Susp) 5 ml QID PO Last administered on 04/19/17 11:57; Admin Dose 5 ML; Start 04/13/17 at 18:00 Potassium Chloride (Klor-Con 10) 10 meq BID@08,18 PO Last administered on 09:23; Admin Dose 10 MEQ; Start 04/17/17 at 08:00 Methylprednisolone Sodium Succinate (Solu-Medrol) 30 mg AM IV Last administered on 04/19/17 09:20; Admin Dose 30 MG; Start 04/18/17 at 09:00 Levofloxacin (Levaquin) 500 mg DAILY@06 NGT Last administered on 04/19/17 05:29 ; Admin Dose 500 MG; Start 04/18/17 at 06:00 Metronidazole (Flagyl) 500 mg Q8 PO Last administered on 04/19/17 13:18; Admin Dose 500 MG; Start 04/18/17 at 06:00 DEBRA GILL NP Apr 19, 2017 13:55
--- NOTE | 2017-04-19 16:24 | PN ---
DATE: 04/19/2017 CARDIOLOGY FOLLOWUP SUBJECTIVE: Discussed with the staff. Rhythm strip reviewed. The patient remains in sinus rhythm with marked sinus bradycardia, ____is feeling better. Does still complain of back pain, otherwise d oing okay. MEDICATIONS: Reviewed. PHYSICAL EXAMINATION: VITAL SIGNS: Temperature 98.4, heart rate of 56, blood pressure 96/62, respiration rate of 18, satu rating 98%. HEENT: Normocephalic, atraumatic. Thin, cachectic-looking gentleman in no acute distress. CARDIOVASCULAR: Bradycardic. PULMONARY: With no wheezes and rhonchi. GASTROINTESTINAL: Soft, mild tenderness to palpation. EXTREMITIES: Positive lower extremity edema. NEUROLOGIC: Awake and alert. There are multiple ecchymoses. PSYCHIATRIC: Appears to be calm at this point. LABORATORY: Most recent one shows sodium ____, potassium 3.9, BUN of 15, creatinine 0.59. ASSESSMENT AND PLAN: 1. Sick sinus syndrome, marked sinus bradycardia, currently appears to be asymptomatic. 2. Metastatic cholangiocarcinoma, metastatic to liver and lymph nodes, ____ multiple surgeries. 3. History of chronic primary sclerosing cholangitis. 4. History of Crohn's Disease, status post proctocolectomy and J-pouch creation in 2005. 5. Severe malnutrition and low albumin level. 6. Anemia. 7. Depression. RECOMMENDATIONS: We will continue current cardiac care. Conservative therapy. Code status DNR. Danyell diaz with surgery and GI's recommendations. Dictated By: POOJA BISHOP/JASMYNE Conf#: [id number] DID#: [id number]
--- NOTE | 2017-04-19 23:01 | CONS ---
Date/Time of Note Date/Time of Note DATE: 04/19/17 TIME: 23:00 Assessment/Plan Assessment/Plan Chief Complaint/Hosp Course 1. 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 postop , NOW WITH Metastatic dis in the liver lobular area of elevated T2 signal is seen in the central liver worrisome for a mass possibly cholangiocarcinoma and this causes prominent intrahepatic biliary ductal dilatation of both the left and right intrahepatic biliary ducts with central loss of signal at the area of the mass. CT and MRI- REVIEWED TUMOR MARKERS : ca 19-9 1420 , c/w to tumor progression hepatobiliary consult noted- D/W D LEÓN POST drain placement in the right lobe of the liver- c/w abscess POST stenting across the anastomosis with IR. PTBD LFT - noted 2. Obstructive jaundice. Stable, ro stricture/recurrent tumor. MRCP/GI eval, hepatobiliary surgery consult- REVIEWED surgical f-up Dr Anderson noted POST biliary drainage by interventional radiology 3. Chronic Crohn's disease status post total proctocolectomy with J-pouch creation 2005. 4. Chronic primary sclerosing cholangitis w cholangiocarcinoma. Needs advanced care planning evaluated. Poor prognosis. Performance status questionable at this time for chemotherapy & bilirubin needs some improvement. 5. Malnutrition; oral feeds/Megace vs TPN 6. Active pouchitis? 7. Postop day 16 bd excision w cholecystectomy, excision of extrahepatic cbd and Isabell-en-Y hepaticojejunostomy. 8. Failure to thrive, may need snf 9. Anemia- WILL TRANSFUSE PRBC PRN 10. Reactive thrombocytosis 11. Dyslipidemia. POOR PS agree with transfer to SNF refusing hospice Problems: Consultation Date/Type/Reason Admit Date/Time March 30, 2017 at 18:53 Initial Consult Date 03/31/17 Type of Consultation: hemeon Referring Provider: HUMZA JAIME MD 24 HR Interval Summary Free Text/Dictation no new events family conference Exam/Review of Systems Vital Signs Vitals Vital Signs Date Time Temp Pulse Resp B/P Pulse Ox O2 Delivery O2 Flow Rate FiO2 04/19/17 21:15 18 04/19/17 20:34 57 04/19/17 20:00 98.5 136/79 100 Intake and Output 04/18/17 04/18/17 04/19/17 15:00 23:00 07:00 Intake Total 800 ml 300 ml Output Total 180 ml 225 ml Balance 620 ml 75 ml Exam Constitutional: alert, frail, oriented, calm Psych: depression Neck: No jvd Respiratory: clear to auscultation, normal air movement Cardiovascular: regular rate and rhythm Gastrointestinal: other (right flank drainage bag x2 ), soft, tender Musculoskeletal: No nl gait and stance Neurological: MECHANICAL FITTER II-XII intact, nl mental status, nl speech Results Result Diagram: 04/18/1761404/18/17614 Medications Medications Current Medications Ondansetron HCl (Zofran Inj) 4 mg Q6H PRN IV NAUSEA AND/OR VOMITING; Start at 19:30 Acetaminophen (Tylenol Tab) 650 mg Q6H PRN PO PAIN LEVEL 1-3 OR FEVER; Start at 19:30 Docusate Sodium (Colace) 100 mg Q12H PRN PO CONSTIPATION; Start 03/30/17 at 19: 30 Magnesium Hydroxide (Milk Of Mag) 30 ml DAILY PRN PO CONSTIPATION; Start at 19:30 Sodium Biphosphate/ Sodium Phosphate (Fleet Enema) 133 ml DAILY PRN [place] CONSTIPATION; Start 03/30/17 at 19:30 Pantoprazole (Protonix Iv) 40 mg DAILY@06 IV Last administered on 04/19/17 05: 29; Admin Dose 40 MG; Start 03/31/17 at 06:00 Hydralazine HCl (Apresoline) 10 mg Q6H PRN IV ELEVATED BLOOD PRESSURE; Start at 19:30 Nitroglycerin (Nitroglycerin (Sl Tab) 0.4 Mg) 1 tab Q5M PRN SL ANGINA; Start at 19:30 Hydromorphone HCl (Dilaudid LOOP CUTTER) MG/HR CONTINUOUS R... Q4PCA IV Last administered on 04/19/17 11:56; Admin Dose 6 MG; Start 03/31/17 at 13:30 Escitalopram Oxalate (Lexapro) 20 mg DAILY PO Last administered on 04/19/17 09: 20; Admin Dose 20 MG; Start 04/11/17 at 09:00 Nystatin (Nystatin Susp) 5 ml QID PO Last administered on 04/19/17 21:27; Admin Dose 5 ML; Start 04/13/17 at 18:00 Potassium Chloride (Klor-Con 10) 10 meq BID@08,18 PO Last administered on 18:02; Admin Dose 10 MEQ; Start 04/17/17 at 08:00 Methylprednisolone Sodium Succinate (Solu-Medrol) 30 mg AM IV Last administered on 04/19/17 09:20; Admin Dose 30 MG; Start 04/18/17 at 09:00 Levofloxacin (Levaquin) 500 mg DAILY@06 NGT Last administered on 04/19/17 05:29 ; Admin Dose 500 MG; Start 04/18/17 at 06:00 Metronidazole (Flagyl) 500 mg Q8 PO Last administered on 04/19/17 21:27; Admin Dose 500 MG; Start 04/18/17 at 06:00 KIN ESTEBAN MD Apr 19, 2017 23:01
[2017-04-20] VITALS (12 sets, daily range): BP systolic 102–122; BP diastolic 63–73; PULSE 46–62; RESP 15–17
[2017-04-20] MEDS: LEVOFLOXACIN 500 MG TAB NGT SCH (05:44)
[2017-04-20] MEDS: metroNIDAZOLE 500 MG TAB PO SCH ×3 (05:44→20:52)
[2017-04-20] MEDS: PANTOPRAZOLE 40 MG INJ IV SCH (05:44)
[2017-04-20 06:44] LABS: ADD SCAN DIFF NO
[2017-04-20 06:59] LABS: BASOPHILS % 0.1 % (0.0-2.0); EOSINOPHILS # 0.2 10^3/ul (0.0-0.5); EOSINOPHILS % 1.7 % (0.0-7.0); HEMATOCRIT 32.9 % (42.0-52.0); HEMOGLOBIN 10.3 g/dl (14.0-18.0); LYMPHOCYTES # 2.3 10^3/ul (0.8-2.9); LYMPHOCYTES % 23.5 % (15.0-51.0); MEAN CORPUSCULAR HEMOGLOBIN 30.1 pg (29.0-33.0); MEAN CORPUSCULAR HGB CONC 31.3 g/dl (32.0-37.0); MEAN CORPUSCULAR VOLUME 96.2 fl (82.0-101.0); MEAN PLATELET VOLUME 9.4 fl (7.4-10.4); MONOCYTE # 0.6 10^3/ul (0.3-0.9); MONOCYTES % 6.2 % (0.0-11.0); NEUTROPHIL # 6.6 10^3/ul (1.6-7.5); PLATELET COUNT 470 10^3/UL (140-415); RED BLOOD COUNT 3.42 10^6/ul (4.70-6.10); RED CELL DISTRIBUTION WIDTH 19.7 % (11.5-14.5); WHITE BLOOD COUNT 9.7 10^3/ul (4.8-10.8)
[2017-04-20 07:17] LABS: ALBUMIN 3.7 g/dl (3.3-4.9); ALBUMIN/GLOBULIN RATIO 1.08; BILIRUBIN,DIRECT 1.3 mg/dl (0.00-0.20); BILIRUBIN,TOTAL 2.3 mg/dl (0.2-1.3); CALCIUM 9.1 mg/dl (8.4-10.2); CREATININE 0.62 mg/dl (0.61-1.24); POTASSIUM 3.9 mmol/L (3.5-5.1); TOTAL PROTEIN 7.1 g/dl (6.1-8.1)
--- NOTE | 2017-04-20 08:09 | PN ---
Date/Time of Note Date/Time of Note DATE: 04/18/17 TIME: 08:06 Assessment/Plan Lines/Catheters IV Catheter Type (from Nrsg): Peripheral IV Andrews in Place (from Nrs): No Assessment/Plan Assessment/Plan [facility] Progress Note (late entry) Date of Service: 04/18/17 Today's Impression & Plan: Overall stable and continues to slowly improve. No new issues. WBC almost normal. No indication for acute surgical intervention. With above assessment, I've recommended the following for today: 1. Continued aggressive medical management with broad spec antimicrobials with plans to start weaning him off the antimicrobials once WBC normal for more than 48 hrs 2. Aggressive nutritional support with increased oral intake. 3. Labs in am including LFT's 4. Drains to gravity drainage and flush per instructions 5. Maximize antidepressants 6. Continued supportive care management 7. Continue Toradol for back pain 8. Assisted activity with education on how to deal with his back 9. F/u on culture results and do more cultures if indicated clinically (still at risk for ongoing cholangitis, UTI, pneumonia, etc.) Thank you again for your great care of this very pleasant patient and wonderful family. If there are any questions, please feel free to call me at [phone]. TOTAL VISIT TIME: 20 minutes of which more than half was spent in [id number] discussion with the patient, possibly including family, as well as coordination of care between multiple physicians and providers. Disclaimer: Inadvertent spelling or grammatical errors are likely due to EHR/ dictation software use and do not reflect on the overall quality of patient care. Updated clinical summary: A very pleasant 61-year-old gentleman with significant past medical history including ulcerative colitis status post total proctocolectomy and ileoanal pouch as well as a number of other medical issues who was diagnosed with cholangiocarcinoma and underwent a radical bile duct resection that included extrahepatic bile duct and gallbladder at [facility], 2016, with final diagnosis of cholangiocarcinoma with 1/8 lymph node positive disease as well as low-grade dysplasia and carcinoma in situ at the proximal margin. The patient was readmitted to [facility] after a 2 month hospital stay at [facility] with increasing weakness, jaundice, and diffuse body pain. S/p perc drainage of right biliary system 04/03/17. : s/p placement of left biliary drain which traverses patient's anastomosis on that side. Right system has a tight anastomosis that could not be traversed. R biliary drain upsized 04/12/17. COMORBIDITIES: 1. History of ulcerative colitis status post total proctocolectomy and ileoanal pouch. 2. Diagnosis of primary sclerosing cholangitis since 2008 being cared for at various institutions such as [facility] and by various physicians with involvement of Dr. Krystian Adkins for hepatology. 3. History of hospitalization at [facility] for bile duct obstruction from mid December to early March with bile duct excision with cholecystectomy with removal of extrahepatic bile duct and Isabell-en-Y hepaticojejunostomy on 07/2017 with the above-mentioned pathology. 4. Chronic back pain, mainly lower, for the last 5 to 6 years. 5. Significant weight loss of more than 20 to 30 pounds over the last 6 months. 6. No history of lymphoma (note that this was reported erroneously in the patient's chart. The patient does not report any history of lymphoma in the past and that is also corroborated by the patient's family). 7. Status post multiple ERCPs and stenting in the past since 2005. 8. Elevated alpha fetoprotein 1.8 in 12/2016. 9. Elevated CA19-9 of 272.9 in 12/2016. 10. Normal CEA at 1.6 on 01/14/2017. 11. Status post sigmoidoscopy, 01/16/2017, showing moderate pouchitis and negative for dysplasia or malignancy. 12. S/p perc drainage of right biliary system 04/03/17. 13. 04/09/17: s/p placement of left biliary drain which traverses patient's anastomosis on that side. Right system has a tight anastomosis that could not be traversed. 14. Compression fracture 04/10/17 Subjective: No major events or complaints; no major abd pain and under control with medications; no n/v/d; no sob or cp; + flatus; + BM and normal for him; minimal activity. Back pain still present but seems under control. Objective: Vitals: See below Exam: GENERAL: On exam, the patient was sitting on the commode and appeared to be comfortable and in no acute distress. ABDOMEN: Soft, nontender and nondistended. Incisions are clean, dry and intact without any evidence of erythema, edema, discharge, or hernia. R biliary drain with less purulent fluid and trending toward more bilious output. L biliary drain with purulent fluid and trending toward more bilious output. SKIN: Skin appears to be less jaundiced and feels warm to touch. NEUROLOGIC: Patient was awake, alert, and followed commands appropriately. Exam/Review of Systems Vital Signs Vitals Vital Signs Date Time Temp Pulse Resp B/P Pulse Ox O2 Delivery O2 Flow Rate FiO2 04/20/17 05:41 16 04/20/17 04:23 48 04/20/17 04:00 98.1 111/65 99 Intake and Output 04/19/17 04/19/17 04/20/17 15:00 23:00 07:00 Intake Total 1280 ml Output Total 75 ml Balance 1205 ml Results Result Diagram: 04/20/17 0605 04/20/17 0605 ZOE GOYAL M.D. Apr 20, 2017 08:09
--- NOTE | 2017-04-20 08:13 | PN ---
Date/Time of Note Date/Time of Note DATE: 04/19/17 TIME: 08:09 Assessment/Plan Lines/Catheters IV Catheter Type (from Nrsg): Peripheral IV Andrews in Place (from Nrsg): No Assessment/Plan Assessment/Plan [facility] Progress Note (late entry) Date of Service: 04/19/17 Today's Impression & Plan: Overall stable and continues to slowly improve. No new issues. WBC almost normal. No indication for acute surgical intervention. Drain outputs much more bilious appearing and not purulent, and patient's energy level also correspondingly higher. Discussed TACE with patient and his sister and answered all questions. Also discussed with Dr. Bee in the room with the patient. With above assessment, I've recommended the following for today: 1. Continued aggressive medical management with broad spec antimicrobials with plans to start weaning him off the antimicrobials once WBC normal for more than 48 hrs 2. Aggressive nutritional support with increased oral intake. 3. Labs in am including LFT's 4. Drains to gravity drainage and flush per instructions 5. Maximize antidepressants 6. Continued supportive care management 7. Continue Toradol for back pain 8. Assisted activity with education on how to deal with his back 9. F/u on culture results and do more cultures if indicated clinically (still at risk for ongoing cholangitis, UTI, pneumonia, etc.) 10. Will plan on capping the left biliary drain once WBC is normal for > 24 hours (very important to still flush the drains); the right side is only in the liver and cannot be capped (may have IR try one more time to traverse into intestine next week) Thank you again for your great care of this very pleasant patient and wonderful family. If there are any questions, please feel free to call me at [phone]. TOTAL VISIT TIME: 20 minutes of which more than half was spent in [id number] discussion with the patient, possibly including family, as well as coordination of care between multiple physicians and providers. Disclaimer: Inadvertent spelling or grammatical errors are likely due to EHR/ dictation software use and do not reflect on the overall quality of patient care. Updated clinical summary: A very pleasant 61-year-old gentleman with significant past medical history including ulcerative colitis status post total proctocolectomy and ileoanal pouch as well as a number of other medical issues who was diagnosed with cholangiocarcinoma and underwent a radical bile duct resection that included extrahepatic bile duct and gallbladder at [facility], 2016, with final diagnosis of cholangiocarcinoma with 1/8 lymph node positive disease as well as low-grade dysplasia and carcinoma in situ at the proximal margin. The patient was readmitted to [facility] after a 2 month hospital stay at [facility] with increasing weakness, jaundice, and diffuse body pain. S/p perc drainage of right biliary system 04/03/17. : s/p placement of left biliary drain which traverses patient's anastomosis on that side. Right system has a tight anastomosis that could not be traversed. R biliary drain upsized 04/12/17. COMORBIDITIES: 1. History of ulcerative colitis status post total proctocolectomy and ileoanal pouch. 2. Diagnosis of primary sclerosing cholangitis since 2008 being cared for at various institutions such as [facility] and by various physicians with involvement of Dr. Krystian Adkins for hepatology. 3. History of hospitalization at [facility] for bile duct obstruction from mid December to early March with bile duct excision with cholecystectomy with removal of extrahepatic bile duct and Isabell-en-Y hepaticojejunostomy on 07/2017 with the above-mentioned pathology. 4. Chronic back pain, mainly lower, for the last 5 to 6 years. 5. Significant weight loss of more than 20 to 30 pounds over the last 6 months. 6. No history of lymphoma (note that this was reported erroneously in the patient's chart. The patient does not report any history of lymphoma in the past and that is also corroborated by the patient's family). 7. Status post multiple ERCPs and stenting in the past since 2005. 8. Elevated alpha fetoprotein 1.8 in 12/2016. 9. Elevated CA19-9 of 272.9 in 12/2016. 10. Normal CEA at 1.6 on 01/14/2017. 11. Status post sigmoidoscopy, 01/16/2017, showing moderate pouchitis and negative for dysplasia or malignancy. 12. S/p perc drainage of right biliary system 04/03/17. 13. 04/09/17: s/p placement of left biliary drain which traverses patient's anastomosis on that side. Right system has a tight anastomosis that could not be traversed. 14. Compression fracture 04/10/17 Subjective: No major events or complaints; no major abd pain and under control with medications; no n/v/d; no sob or cp; + flatus; + BM and normal for him; minimal activity. Feels more energetic today. Objective: Vitals: See below Exam: GENERAL: On exam, the patient was sitting on the commode and appeared to be comfortable and in no acute distress. ABDOMEN: Soft, nontender and nondistended. Incisions are clean, dry and intact without any evidence of erythema, edema, discharge, or hernia. R and L biliary drains bilious. SKIN: Skin appears to be less jaundiced and feels warm to touch. NEUROLOGIC: Patient was awake, alert, and followed commands appropriately. Exam/Review of Systems Vital Signs Vitals Vital Signs Date Time Temp Pulse Resp B/P Pulse Ox O2 Delivery O2 Flow Rate FiO2 04/20/17 05:41 16 04/20/17 04:23 48 04/20/17 04:00 98.1 111/65 99 Intake and Output 04/19/17 04/19/17 04/20/17 15:00 23:00 07:00 Intake Total 1280 ml Output Total 75 ml Balance 1205 ml Results Result Diagram: 04/20/17 0605 04/20/17 0605 ZOE GOYAL M.D. Apr 20, 2017 08:13
[2017-04-20] MEDS: ESCITALOPRAM 10 MG TAB PO SCH (09:18)
[2017-04-20] MEDS: NYSTATIN SUSP 5 ML CUP PO SCH ×4 (09:19→20:52)
[2017-04-20] MEDS: POTASSIUM CHLORIDE (SR) 10 MEQ TAB PO SCH ×2 (09:19→18:39)
[2017-04-20] MEDS: METHYLPREDNISOLONE 40 MG INJ IV SCH (09:19)
--- NOTE | 2017-04-20 14:06 | PN ---
Date/Time of Note Date/Time of Note DATE: 04/20/17 TIME: 13:59 Assessment/Plan VTE Prophylaxis VTE Prophylaxis Intervention: SCD's Lines/Catheters IV Catheter Type (from Nrs): Peripheral IV Urinary Cath still in place: No Assessment/Plan Assessment/Plan Assessment/Plan Metastatic cholangiocarcinoma/post surgery /post chemotherapy Obstructive jaundice S/P PTBD 04/09/2017 Satisfactory fluoroscopic guided replacement of right external biliary drainage catheter. The left sided internal external biliary drainage catheter remains in satisfactory position. S/P PTBD right biliary system 04/04/2017 S/P bile duct excision with cholecystectomy excision of extrahepatic duct, and Isabell en Y hepaticojejuniostomy sec to cholangiocarcinoma Hematochezia resolved History of ulcerative colitis/post proctocolectomy with J pouch 2005 * 01/2017 moderate pouchitis,no evidence of malignancy Chronic intractable pain New back vertebral fat fractures Plan * Continue present management * pain control * Will follow on a as needed basis Subjective 24 Hr Interval Summary Free Text/Dictation Course reviewed with nursing staff Patient complains of back pain related to new back injury Tolerating diet without problems Biliary drainage appears to be adequate No active GI issues We will sign off and follow upon request Exam/Review of Systems Vital Signs Vitals Vital Signs Date Time Temp Pulse Resp B/P Pulse Ox O2 Delivery O2 Flow Rate FiO2 04/20/17 12:29 50 04/20/17 12:00 16 04/20/17 12:00 98.1 106/65 99 Intake and Output 04/19/17 04/19/17 04/20/17 15:00 23:00 07:00 Intake Total 1280 ml Output Total 75 ml Balance 1205 ml Results Result Diagram: 04/20/17 0605 04/20/17 0605 Results 24 hrs Laboratory Tests Test 04/20/17 06:05 White Blood Count 9.7 Red Blood Count 3.42 L Hemoglobin 10.3 L Hematocrit 32.9 L Mean Corpuscular Volume 96.2 Mean Corpuscular Hemoglobin 30.1 Mean Corpuscular Hemoglobin Concent 31.3 L Red Cell Distribution Width 19.7 H Platelet Count 470 #H Mean Platelet Volume 9.4 Neutrophils % 68.0 Lymphocytes % 23.5 Monocytes % 6.2 Eosinophils % 1.7 Basophils % 0.1 Nucleated Red Blood Cells % 0.0 Neutrophils # 6.6 Lymphocytes # 2.3 Monocytes # 0.6 Eosinophils # 0.2 Basophils # 0.0 Nucleated Red Blood Cells # 0.0 Sodium Level 141 Potassium Level 3.9 Chloride Level 102 Carbon Dioxide Level 31 Anion Gap 12 Blood Urea Nitrogen 20 Creatinine 0.62 Glucose Level 82 Calcium Level 9.1 Total Bilirubin 2.3 H Direct Bilirubin 1.30 H Indirect Bilirubin 1.0 Aspartate Amino Transf (AST/SGOT) 60 H Alanine Aminotransferase (ALT/SGPT) 69 Alkaline Phosphatase 322 H Total Protein 7.1 Albumin 3.7 Globulin 3.40 H Albumin/Globulin Ratio 1.08 Medications Medications Current Medications Ondansetron HCl (Zofran Inj) 4 mg Q6H PRN IV NAUSEA AND/OR VOMITING; Start at 19:30 Acetaminophen (Tylenol Tab) 650 mg Q6H PRN PO PAIN LEVEL 1-3 OR FEVER; Start at 19:30 Docusate Sodium (Colace) 100 mg Q12H PRN PO CONSTIPATION; Start 03/30/17 at 19: 30 Magnesium Hydroxide (Milk Of Mag) 30 ml DAILY PRN PO CONSTIPATION; Start at 19:30 Sodium Biphosphate/ Sodium Phosphate (Fleet Enema) 133 ml DAILY PRN [place] CONSTIPATION; Start 03/30/17 at 19:30 Pantoprazole (Protonix Iv) 40 mg DAILY@06 IV Last administered on 04/20/17 05: 44; Admin Dose 40 MG; Start 03/31/17 at 06:00 Hydralazine HCl (Apresoline) 10 mg Q6H PRN IV ELEVATED BLOOD PRESSURE; Start at 19:30 Nitroglycerin (Nitroglycerin (Sl Tab) 0.4 Mg) 1 tab Q5M PRN SL ANGINA; Start at 19:30 Hydromorphone HCl (Dilaudid NEW GRAD RN) MG/HR CONTINUOUS R... Q4PCA IV Last administered on 04/19/17 11:56; Admin Dose 6 MG; Start 03/31/17 at 13:30 Escitalopram Oxalate (Lexapro) 20 mg DAILY PO Last administered on 04/20/17 09: 18; Admin Dose 20 MG; Start 04/11/17 at 09:00 Nystatin (Nystatin Susp) 5 ml QID PO Last administered on 6/3/17at 13:48; Admin Dose 5 ML; Start 04/13/17 at 18:00 Potassium Chloride (Klor-Con 10) 10 meq BID@08,18 PO Last administered on 09:19; Admin Dose 10 MEQ; Start 04/17/17 at 08:00 Methylprednisolone Sodium Succinate (Solu-Medrol) 30 mg AM IV Last administered on 04/20/17 09:19; Admin Dose 30 MG; Start 04/18/17 at 09:00 Levofloxacin (Levaquin) 500 mg DAILY@06 NGT Last administered on 04/20/17 05:44 ; Admin Dose 500 MG; Start 04/18/17 at 06:00 Metronidazole (Flagyl) 500 mg Q8 PO Last administered on 04/20/17 13:48; Admin Dose 500 MG; Start 04/18/17 at 06:00 BRAD PRADO MD Apr 20, 2017 14:06
--- NOTE | 2017-04-20 16:11 | PN ---
Date/Time of Note Date/Time of Note DATE: 04/20/17 TIME: 16:10 Assessment/Plan VTE Prophylaxis VTE Prophylaxis Intervention: SCD's Lines/Catheters IV C[facility]ter Type (from [facility]): Peripheral IV Urinary Cath still in place: No Assessment/Plan Chief Complaint/Hosp Course 1. Metastatic cholangiocarcinoma with metastasis to the liver and lymph nodes. Status post cholecystectomy and excision of hepatic common bile duct with Isabell -en-Y hepaticojejunostomy on 01/24/2017. The patient being followed by oncology. Poor prognosis. 2. History of Crohn's disease status post a proctocolectomy with J-pouch creation in 2005. 3. History of chronic primary sclerosing cholangitis. 4. Sinus bradycardia, asymptomatic. Cardiology following. 5. Chronic back pain. Lumbar spine CT showing osteopenia with mild L2 compression fracture. Continue on analgesics. 6. Protein calorie malnutrition. Severe. Dietary supplements. 7. Normocytic normochromic anemia, most probably anemia of chronic disease. Monitor H and H closely. 8. Depression. Continue Lexapro. 9. Status post placement of left biliary drain on 04/09/2017. Continue management as per surgery. 10. Status post placement of a right biliary drain on 03/24/2017, management as per surgery. On antibiotics as per infectious disease. 11. Fluid, electrolytes and nutrition. Soft diet. 11. DVT prophylaxis with bilateral sequential compression devices. 12. Gastrointestinal prophylaxis. Proton pump inhibitors intervention planned. Plan. Continue current management. Plan is to discharge the patient to senior living facility once cleared by surgery. The case was discussed with Dr. Ulloa. Problems: Subjective 24 Hr Interval Summary Free Text/Dictation The patient remains on Dilaudid PROCUREMENT REPRESENTATIVE. Exam/Review of Systems Vital Signs Vitals Vital Signs Date Time Temp Pulse Resp B/P Pulse Ox O2 Delivery O2 Flow Rate FiO2 04/20/17 12:29 50 04/20/17 12:00 16 04/20/17 12:00 98.1 106/65 99 Intake and Output 04/19/17 04/19/17 04/20/17 15:00 23:00 07:00 Intake Total 1280 ml Output Total 75 ml Balance 1205 ml Exam GENERAL: This is a frail-looking male patient lying in bed in no apparent distress. HEENT: Head normocephalic and atraumatic. Eyes: Anicteric sclerae. Conjunctivae clear. ENT: Nasal septum is midline. Oral mucosa is dry. NECK: Supple. No JVD noticed. RESPIRATORY: Bilaterally clear to auscultation. No adventitious breath sounds. No use of accessory muscles of respiration. CARDIAC: Regular rate and rhythm with a systolic murmur. ABDOMEN: Soft and nondistended. Incisions clean, dry and intact. Right biliary drain with purulent drainage. Left biliary drain with yellow fluid. GENITOURINARY: Deferred. EXTREMITIES: No cyanosis, no clubbing, no edema. Peripheral pulses palpable. NEUROLOGIC: The patient is awake, alert and oriented. Cranial nerves are grossly intact. Results Result Diagram: 04/20/17 0605 04/20/17 0605 Results 24 hrs Laboratory Tests Test 04/20/17 06:05 White Blood Count 9.7 Red Blood Count 3.42 L Hemoglobin 10.3 L Hematocrit 32.9 L Mean Corpuscular Volume 96.2 Mean Corpuscular Hemoglobin 30.1 Mean Corpuscular Hemoglobin Concent 31.3 L Red Cell Distribution Width 19.7 H Platelet Count 470 #H Mean Platelet Volume 9.4 Neutrophils % 68.0 Lymphocytes % 23.5 Monocytes % 6.2 Eosinophils % 1.7 Basophils % 0.1 Nucleated Red Blood Cells % 0.0 Neutrophils # 6.6 Lymphocytes # 2.3 Monocytes # 0.6 Eosinophils # 0.2 Basophils # 0.0 Nucleated Red Blood Cells # 0.0 Sodium Level 141 Potassium Level 3.9 Chloride Level 102 Carbon Dioxide Level 31 Anion Gap 12 Blood Urea Nitrogen 20 Creatinine 0.62 Glucose Level 82 Calcium Level 9.1 Total Bilirubin 2.3 H Direct Bilirubin 1.30 H Indirect Bilirubin 1.0 Aspartate Amino Transf (AST/SGOT) 60 H Alanine Aminotransferase (ALT/SGPT) 69 Alkaline Phosphatase 322 H Total Protein 7.1 Albumin 3.7 Globulin 3.40 H Albumin/Globulin Ratio 1.08 Medications Medications Current Medications Ondansetron HCl (Zofran Inj) 4 mg Q6H PRN IV NAUSEA AND/OR VOMITING; Start at 19:30 Acetaminophen (Tylenol Tab) 650 mg Q6H PRN PO PAIN LEVEL 1-3 OR FEVER; Start at 19:30 Docusate Sodium (Colace) 100 mg Q12H PRN PO CONSTIPATION; Start 03/30/17 at 19: 30 Magnesium Hydroxide (Milk Of Mag) 30 ml DAILY PRN PO CONSTIPATION; Start at 19:30 Sodium Biphosphate/ Sodium Phosphate (Fleet Enema) 133 ml DAILY PRN [place] CONSTIPATION; Start 03/30/17 at 19:30 Pantoprazole (Protonix Iv) 40 mg DAILY@06 IV Last administered on 04/20/17 05: 44; Admin Dose 40 MG; Start 03/31/17 at 06:00 Hydralazine HCl (Apresoline) 10 mg Q6H PRN IV ELEVATED BLOOD PRESSURE; Start at 19:30 Nitroglycerin (Nitroglycerin (Sl Tab) 0.4 Mg) 1 tab Q5M PRN SL ANGINA; Start at 19:30 Hydromorphone HCl (Dilaudid PROCUREMENT REPRESENTATIVE) MG/HR CONTINUOUS R... Q4PCA IV Last administered on 04/19/17 11:56; Admin Dose 6 MG; Start 03/31/17 at 13:30 Escitalopram Oxalate (Lexapro) 20 mg DAILY PO Last administered on 04/20/17 09: 18; Admin Dose 20 MG; Start 04/11/17 at 09:00 Nystatin (Nystatin Susp) 5 ml QID PO Last administered on 04/20/17 13:48; Admin Dose 5 ML; Start 04/13/17 at 18:00 Potassium Chloride (Klor-Con 10) 10 meq BID@08,18 PO Last administered on 09:19; Admin Dose 10 MEQ; Start 04/17/17 at 08:00 Methylprednisolone Sodium Succinate (Solu-Medrol) 30 mg AM IV Last administered on 04/20/17 09:19; Admin Dose 30 MG; Start 04/18/17 at 09:00 Levofloxacin (Levaquin) 500 mg DAILY@06 NGT Last administered on 04/20/17 05:44 ; Admin Dose 500 MG; Start 04/18/17 at 06:00 Metronidazole (Flagyl) 500 mg Q8 PO Last administered on 04/20/17 13:48; Admin Dose 500 MG; Start 04/18/17 at 06:00 LINDA HOLLIS NP Apr 20, 2017 16:11
[2017-04-21] VITALS (13 sets, daily range): BP systolic 101–116; BP diastolic 58–76; PULSE 40–86; RESP 15–19
[2017-04-21] MEDS: PANTOPRAZOLE 40 MG INJ IV SCH (06:46)
[2017-04-21] MEDS: LEVOFLOXACIN 500 MG TAB NGT SCH (06:46)
[2017-04-21] MEDS: metroNIDAZOLE 500 MG TAB PO SCH ×3 (06:46→21:51)
[2017-04-21 07:42] LABS: PHOSPHORUS 3.4 mg/dl (2.5-4.9)
[2017-04-21] MEDS: NYSTATIN SUSP 5 ML CUP PO SCH ×4 (08:14→21:00)
[2017-04-21] MEDS: ESCITALOPRAM 10 MG TAB PO SCH (08:15)
[2017-04-21] MEDS: METHYLPREDNISOLONE 40 MG INJ IV SCH (08:16)
[2017-04-21] MEDS: HYDROmorphONE 0.2 MG/ML PCA IV SCH (08:31)
[2017-04-21] MEDS: POTASSIUM CHLORIDE (SR) 10 MEQ TAB PO SCH ×2 (08:37→18:49)
--- NOTE | 2017-04-21 11:57 | PN ---
Date/Time of Note Date/Time of Note DATE: 04/21/17 TIME: 11:56 Assessment/Plan VTE Prophylaxis VTE Prophylaxis Intervention: other Lines/Catheters IV Catheter Type (from Nrs): Peripheral IV Urinary Cath still in place: No Assessment/Plan Problems: (1) Cholangiocarcinoma metastatic to liver Status: Chronic Comment: As per Dr. Anderson and [place]. He is informing me that he is on hospice therapy and awaiting placement to an ECF that can handle all of the different drains he has. He is relatively comfortable at this time. (2) Weight loss Status: Acute Comment: Stabilize Subjective 24 Hr Interval Summary Free Text/Dictation Patient complains of some discomfort from stage I decubiti on buttocks Constitutional: no complaints Respiratory: no complaints Cardiovascular: no complaints Gastrointestinal: no complaints Exam/Review of Systems Vital Signs Vitals Vital Signs Date Time Temp Pulse Resp B/P Pulse Ox O2 Delivery O2 Flow Rate FiO2 04/21/17 11:15 98.5 62 16 101/58 99 Intake and Output 04/20/17 04/20/17 04/21/17 15:00 23:00 07:00 Intake Total 550 ml 400 ml Output Total 100 ml Balance 450 ml 400 ml Exam Constitutional: alert, oriented Respiratory: clear to auscultation, normal air movement Cardiovascular: nl pulses, regular rate and rhythm Results Result Diagram: 04/20/1760404/20/17604 Results 24 hrs Laboratory Tests Test 04/21/17 06:20 Phosphorus Level 3.4 Magnesium Level 2.0 Medications Medications Current Medications Ondansetron HCl (Zofran Inj) 4 mg Q6H PRN IV NAUSEA AND/OR VOMITING; Start at 19:30 Acetaminophen (Tylenol Tab) 650 mg Q6H PRN PO PAIN LEVEL 1-3 OR FEVER; Start at 19:30 Docusate Sodium (Colace) 100 mg Q12H PRN PO CONSTIPATION; Start 03/30/17 at 19: 30 Magnesium Hydroxide (Milk Of Mag) 30 ml DAILY PRN PO CONSTIPATION; Start at 19:30 Sodium Biphosphate/ Sodium Phosphate (Fleet Enema) 133 ml DAILY PRN [place] CONSTIPATION; Start 03/30/17 at 19:30 Pantoprazole (Protonix Iv) 40 mg DAILY@06 IV Last administered on 04/21/17t 06: 46; Admin Dose 40 MG; Start 03/31/17 at 06:00 Hydralazine HCl (Apresoline) 10 mg Q6H PRN IV ELEVATED BLOOD PRESSURE; Start at 19:30 Nitroglycerin (Nitroglycerin (Sl Tab) 0.4 Mg) 1 tab Q5M PRN SL ANGINA; Start at 19:30 Hydromorphone HCl (Dilaudid LEGAL COMPLIANCE OFFICER) MG/HR CONTINUOUS R... Q4PCA IV Last administered on 04/21/17 08:31; Admin Dose 6 MG; Start 03/31/17 at 13:30 Escitalopram Oxalate (Lexapro) 20 mg DAILY PO Last administered on 04/21/17 08: 15; Admin Dose 20 MG; Start 04/11/17 at 09:00 Nystatin (Nystatin Susp) 5 ml QID PO Last administered on 04/21/17 08:14; Admin Dose 5 ML; Start 04/13/17 at 18:00 Potassium Chloride (Klor-Con 10) 10 meq BID@08,18 PO Last administered on 08:37; Admin Dose 10 MEQ; Start 04/17/17 at 08:00 Methylprednisolone Sodium Succinate (Solu-Medrol) 30 mg AM IV Last administered on 04/21/17 08:16; Admin Dose 30 MG; Start 04/18/17 at 09:00 Levofloxacin (Levaquin) 500 mg DAILY@06 NGT Last administered on 04/21/17 06:46 ; Admin Dose 500 MG; Start 04/18/17 at 06:00 Metronidazole (Flagyl) 500 mg Q8 PO Last administered on 04/21/17 06:46; Admin Dose 500 MG; Start 04/18/17 at 06:00 CHING PAPPAS MD Apr 21, 2017 11:57
--- NOTE | 2017-04-21 14:42 | CONS ---
Date/Time of Note Date/Time of Note DATE: 04/21/17 TIME: 14:42 Assessment/Plan Assessment/Plan Chief Complaint/Hosp Course SUBJECTIVE: Patient is alert, looks comfortable, no fevers ANTIMICROBIALS: Levaquin, Flagyl MICROBIOLOGY: Intra-abdominal fluid culture growing Klebsiella pneumoniae and Bacteroides fragilis. INDWELLINGS: The patient has two intra-abdominal drainages. PHYSICAL EXAMINATION: GENERAL: This is a well-developed, elderly, cachectic man who is alert, in no distress. HEENT: Head atraumatic, normocephalic. Sclerae anicteric. Buccal mucosa dry. NECK: Supple, trachea midline. CHEST: Rise symmetrical. Breath sounds clear, diminished to bases. HEART: S1, S2. ABDOMEN: Soft, bowel tones present. EXTREMITIES: Without cyanosis. ASSESSMENT: 1. Systemic inflammatory response syndrome with persistent leukocytosis, secondary to intra-abdominal process, possibly also steroid induced. 2. Biliary obstruction status post fluoroscopic-guided biliary drainage catheter placement with exchange on 04/12/2017. 3. Metastatic cholangiocarcinoma to lymph nodes and liver. 5. History of primary sclerosing cholangitis since 2008. 6. Cachexia. PLAN: The patient remains stable, continue abx, pending dc home with hospice DW staff/pt/ Problems: Consultation Date/Type/Reason Admit Date/Time March 30, 2017 at 18:53 Initial Consult Date 03/31/17 Type of Consultation: ID Referring Provider: HUMZA JAIME MD Exam/Review of Systems Vital Signs Vitals Vital Signs Date Time Temp Pulse Resp B/P Pulse Ox O2 Delivery O2 Flow Rate FiO2 04/21/17 12:08 57 04/21/17 11:15 98.5 16 101/58 99 Intake and Output 04/20/17 04/20/17 04/21/17 15:00 23:00 07:00 Intake Total 550 ml 400 ml Output Total 100 ml Balance 450 ml 400 ml Results Result Diagram: 04/20/1760404/20/17 06 Results 24 hrs Laboratory Tests Test 04/21/17 06:20 Phosphorus Level 3.4 Magnesium Level 2.0 Medications Medications Current Medications Ondansetron HCl (Zofran Inj) 4 mg Q6H PRN IV NAUSEA AND/OR VOMITING; Start at 19:30 Acetaminophen (Tylenol Tab) 650 mg Q6H PRN PO PAIN LEVEL 1-3 OR FEVER; Start at 19:30 Docusate Sodium (Colace) 100 mg Q12H PRN PO CONSTIPATION; Start 03/30/17 at 19: 30 Magnesium Hydroxide (Milk Of Mag) 30 ml DAILY PRN PO CONSTIPATION; Start at 19:30 Sodium Biphosphate/ Sodium Phosphate (Fleet Enema) 133 ml DAILY PRN [place] CONSTIPATION; Start 03/30/17 at 19:30 Pantoprazole (Protonix Iv) 40 mg DAILY@06 IV Last administered on 04/21/17 06: 46; Admin Dose 40 MG; Start 03/31/17 at 06:00 Hydralazine HCl (Apresoline) 10 mg Q6H PRN IV ELEVATED BLOOD PRESSURE; Start at 19:30 Nitroglycerin (Nitroglycerin (Sl Tab) 0.4 Mg) 1 tab Q5M PRN SL ANGINA; Start at 19:30 Hydromorphone HCl (Dilaudid DOCK GUARD) MG/HR CONTINUOUS R... Q4PCA IV Last administered on 04/21/17 08:31; Admin Dose 6 MG; Start 03/31/17 at 13:30 Escitalopram Oxalate (Lexapro) 20 mg DAILY PO Last administered on 04/21/17 08: 15; Admin Dose 20 MG; Start 04/11/17 at 09:00 Nystatin (Nystatin Susp) 5 ml QID PO Last administered on 04/21/17 13:49; Admin Dose 5 ML; Start 04/13/17 at 18:00 Potassium Chloride (Klor-Con 10) 10 meq BID@08,18 PO Last administered on 08:37; Admin Dose 10 MEQ; Start 04/17/17 at 08:00 Methylprednisolone Sodium Succinate (Solu-Medrol) 30 mg AM IV Last administered on 04/21/17 08:16; Admin Dose 30 MG; Start 04/18/17 at 09:00 Levofloxacin (Levaquin) 500 mg DAILY@06 NGT Last administered on 04/21/17 06:46 ; Admin Dose 500 MG; Start 04/18/17 at 06:00 Metronidazole (Flagyl) 500 mg Q8 PO Last administered on 04/21/17 06:46; Admin Dose 500 MG; Start 04/18/17 at 06:00 DEBRA GILL NP Apr 21, 2017 14:42
--- NOTE | 2017-04-21 23:39 | CONS ---
Date/Time of Note Date/Time of Note DATE: 04/21/17 TIME: 23:39 Assessment/Plan Assessment/Plan Chief Complaint/Hosp Course 1. 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 postop , NOW WITH Metastatic dis in the liver lobular area of elevated T2 signal is seen in the central liver worrisome for a mass possibly cholangiocarcinoma and this causes prominent intrahepatic biliary ductal dilatation of both the left and right intrahepatic biliary ducts with central loss of signal at the area of the mass. CT and MRI- REVIEWED TUMOR MARKERS : ca 19-9 1420 , c/w to tumor progression hepatobiliary consult noted- D/W D LEÓN POST drain placement in the right lobe of the liver- c/w abscess POST stenting across the anastomosis with IR. PTBD LFT - noted 2. Obstructive jaundice. Stable, ro stricture/recurrent tumor. MRCP/GI eval, hepatobiliary surgery consult- REVIEWED surgical f-up Dr Anderson noted POST biliary drainage by interventional radiology 3. Chronic Crohn's disease status post total proctocolectomy with J-pouch creation 2005. 4. Chronic primary sclerosing cholangitis w cholangiocarcinoma. Needs advanced care planning evaluated. Poor prognosis. Performance status questionable at this time for chemotherapy & bilirubin needs some improvement. 5. Malnutrition; oral feeds/Megace vs TPN 6. Active pouchitis? 7. Postop day 16 bd excision w cholecystectomy, excision of extrahepatic cbd and Isabell-en-Y hepaticojejunostomy. 8. Failure to thrive, may need snf 9. Anemia- WILL TRANSFUSE PRBC PRN 10. Reactive thrombocytosis 11. Dyslipidemia. POOR PS agree with transfer to SNF AGREE TO hospice Problems: Consultation Date/Type/Reason Admit Date/Time March 30, 2017 at 18:53 Initial Consult Date 03/31/17 [facility] Referring Provider: HUMZA JAIME MD 24 HR Interval Summary Free Text/Dictation ALL NOTED AGREE TO HOSPICE Exam/Review of Systems Vital Signs Vitals Vital Signs Date Time Temp Pulse Resp B/P Pulse Ox O2 Delivery O2 Flow Rate FiO2 04/21/17 20:09 98.4 57 19 116/76 98 Intake and Output 04/20/17 04/20/17 04/21/17 15:00 23:00 07:00 Intake Total 550 ml 400 ml Output Total 100 ml Balance 450 ml 400 ml Exam GENERAL: This is a frail-looking male patient lying in bed in no apparent distress. HEENT: Head normocephalic and atraumatic. Eyes: Anicteric sclerae. Conjunctivae clear. ENT: Nasal septum is midline. Oral mucosa is dry. NECK: Supple. No JVD noticed. RESPIRATORY: Bilaterally clear to auscultation. No adventitious breath sounds. No use of accessory muscles of respiration. CARDIAC: Regular rate and rhythm with a systolic murmur. ABDOMEN: Soft and nondistended. Incisions clean, dry and intact. Right biliary drain with purulent drainage. Left biliary drain with yellow fluid. GENITOURINARY: Deferred. EXTREMITIES: No cyanosis, no clubbing, no edema. Peripheral pulses palpable. NEUROLOGIC: The patient is awake, alert and oriented. Cranial nerves are grossly intact. Results Result Diagram: 04/20/1760404/20/17604 Results 24 hrs Laboratory Tests Test 04/21/17 06:20 Phosphorus Level 3.4 Magnesium Level 2.0 Medications Medications Current Medications Ondansetron HCl (Zofran Inj) 4 mg Q6H PRN IV NAUSEA AND/OR VOMITING; Start at 19:30 Acetaminophen (Tylenol Tab) 650 mg Q6H PRN PO PAIN LEVEL 1-3 OR FEVER; Start at 19:30 Docusate Sodium (Colace) 100 mg Q12H PRN PO CONSTIPATION; Start 03/30/17 at 19: 30 Magnesium Hydroxide (Milk Of Mag) 30 ml DAILY PRN PO CONSTIPATION; Start at 19:30 Sodium Biphosphate/ Sodium Phosphate (Fleet Enema) 133 ml DAILY PRN [place] CONSTIPATION; Start 03/30/17 at 19:30 Pantoprazole (Protonix Iv) 40 mg DAILY@06 IV Last administered on 04/21/17 06: 46; Admin Dose 40 MG; Start 03/31/17 at 06:00 Hydralazine HCl (Apresoline) 10 mg Q6H PRN IV ELEVATED BLOOD PRESSURE; Start at 19:30 Nitroglycerin (Nitroglycerin (Sl Tab) 0.4 Mg) 1 tab Q5M PRN SL ANGINA; Start at 19:30 Hydromorphone HCl (Dilaudid APPLICATION PROCESSOR) MG/HR CONTINUOUS R... Q4PCA IV Last administered on 04/21/17 08:31; Admin Dose 6 MG; Start 03/31/17 at 13:30 Escitalopram Oxalate (Lexapro) 20 mg DAILY PO Last administered on 04/21/17 08: 15; Admin Dose 20 MG; Start 04/11/17 at 09:00 Nystatin (Nystatin Susp) 5 ml QID PO Last administered on 04/21/17 16:15; Admin Dose 5 ML; Start 04/13/17 at 18:00 Potassium Chloride (Klor-Con 10) 10 meq BID@0818 PO Last administered on 18:49; Admin Dose 10 MEQ; Start 04/17/17 at 08:00 Methylprednisolone Sodium Succinate (Solu-Medrol) 30 mg AM IV Last administered on 04/21/17 08:16; Admin Dose 30 MG; Start 04/18/17 at 09:00 Levofloxacin (Levaquin) 500 mg DAILY@06 NGT Last administered on 04/21/17 06:46 ; Admin Dose 500 MG; Start 04/18/17 at 06:00 Metronidazole (Flagyl) 500 mg Q8 PO Last administered on 04/21/17 21:51; Admin Dose 500 MG; Start 04/18/17 at 06:00 KIN ESTEBAN MD Apr 21, 2017 23:39
[2017-04-22] VITALS (12 sets, daily range): BP systolic 96–117; BP diastolic 46–70; PULSE 51–69; RESP 16–19
[2017-04-22] MEDS: LEVOFLOXACIN 500 MG TAB NGT SCH (06:00)
[2017-04-22] MEDS: metroNIDAZOLE 500 MG TAB PO SCH ×4 (06:00→23:48)
--- NOTE | 2017-04-22 07:46 | CONS ---
Date/Time of Note Date/Time of Note DATE: 04/20/17 TIME: 16:46 VK LE Assessment/Plan Assessment/Plan Chief Complaint/Hosp Course 1. 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 postop , NOW WITH Metastatic dis in the liver lobular area of elevated T2 signal is seen in the central liver worrisome for a mass possibly cholangiocarcinoma and this causes prominent intrahepatic biliary ductal dilatation of both the left and right intrahepatic biliary ducts with central loss of signal at the area of the mass. CT and MRI- REVIEWED TUMOR MARKERS : ca 19-9 1420 , c/w to tumor progression hepatobiliary consult noted- D/W D LEÓN POST drain placement in the right lobe of the liver- c/w abscess POST stenting across the anastomosis with IR. PTBD LFT - noted 2. Obstructive jaundice. Stable, ro stricture/recurrent tumor. MRCP/GI eval, hepatobiliary surgery consult- REVIEWED surgical f-up Dr Anderson noted POST biliary drainage by interventional radiology 3. Chronic Crohn's disease status post total proctocolectomy with J-pouch creation 2005. 4. Chronic primary sclerosing cholangitis w cholangiocarcinoma. Needs advanced care planning evaluated. Poor prognosis. Performance status questionable at this time for chemotherapy & bilirubin needs some improvement. 5. Malnutrition; oral feeds/Megace vs TPN 6. Active pouchitis? 7. Postop day 16 bd excision w cholecystectomy, excision of extrahepatic cbd and Isablel-en-Y hepaticojejunostomy. 8. Failure to thrive, may need snf 9. Anemia- WILL TRANSFUSE PRBC PRN 10. Reactive thrombocytosis 11. Dyslipidemia. POOR PS agree with transfer to SNF hospice Problems: Consultation Date/Type/Reason Admit Date/Time March 30, 2017 at 18:53 Initial Consult Date 03/31/17 Type of Consultation: [facility] Referring Provider: HUMZA JAIME MD Exam/Review of Systems Vital Signs Vitals Vital Signs Date Time Temp Pulse Resp B/P Pulse Ox O2 Delivery O2 Flow Rate FiO2 04/20/17 12:29 50 04/20/17 12:00 16 04/20/17 12:00 98.1 106/65 99 Intake and Output 04/19/17 04/19/17 04/20/17 15:00 23:00 07:00 Intake Total 1280 ml Output Total 75 ml Balance 1205 ml Exam Exam GENERAL: This is a frail-looking male patient lying in bed in no apparent distress. HEENT: Head normocephalic and atraumatic. Eyes: Anicteric sclerae. Conjunctivae clear. ENT: Nasal septum is midline. Oral mucosa is dry. NECK: Supple. No JVD noticed. RESPIRATORY: Bilaterally clear to auscultation. No adventitious breath sounds. No use of accessory muscles of respiration. CARDIAC: Regular rate and rhythm with a systolic murmur. ABDOMEN: Soft and nondistended. Incisions clean, dry and intact. Right biliary drain with purulent drainage. Left biliary drain with yellow fluid. GENITOURINARY: Deferred. EXTREMITIES: No cyanosis, no clubbing, no edema. Peripheral pulses palpable. NEUROLOGIC: The patient is awake, alert and oriented. Cranial nerves are grossly intact. Results Result Diagram: 04/20/1760404/20/17604 Results 24 hrs Laboratory Tests Test 04/20/17 06:05 White Blood Count 9.7 Red Blood Count 3.42 L Hemoglobin 10.3 L Hematocrit 32.9 L Mean Corpuscular Volume 96.2 Mean Corpuscular Hemoglobin 30.1 Mean Corpuscular Hemoglobin Concent 31.3 L Red Cell Distribution Width 19.7 H Platelet Count 470 #H Mean Platelet Volume 9.4 Neutrophils % 68.0 Lymphocytes % 23.5 Monocytes % 6.2 Eosinophils % 1.7 Basophils % 0.1 Nucleated Red Blood Cells % 0.0 Neutrophils # 6.6 Lymphocytes # 2.3 Monocytes # 0.6 Eosinophils # 0.2 Basophils # 0.0 Nucleated Red Blood Cells # 0.0 Sodium Level 141 Potassium Level 3.9 Chloride Level 102 Carbon Dioxide Level 31 Anion Gap 12 Blood Urea Nitrogen 20 Creatinine 0.62 Glucose Level 82 Calcium Level 9.1 Total Bilirubin 2.3 H Direct Bilirubin 1.30 H Indirect Bilirubin 1.0 Aspartate Amino Transf (AST/SGOT) 60 H Alanine Aminotransferase (ALT/SGPT) 69 Alkaline Phosphatase 322 H Total Protein 7.1 Albumin 3.7 Globulin 3.40 H Albumin/Globulin Ratio 1.08 Results Result Diagram: 04/20/1760404/20/17604 Medications Medications Current Medications Ondansetron HCl (Zofran Inj) 4 mg Q6H PRN IV NAUSEA AND/OR VOMITING; Start at 19:30 Acetaminophen (Tylenol Tab) 650 mg Q6H PRN PO PAIN LEVEL 1-3 OR FEVER; Start at 19:30 Docusate Sodium (Colace) 100 mg Q12H PRN PO CONSTIPATION; Start 03/30/17 at 19: 30 Magnesium Hydroxide (Milk Of Mag) 30 ml DAILY PRN PO CONSTIPATION; Start at 19:30 Sodium Biphosphate/ Sodium Phosphate (Fleet Enema) 133 ml DAILY PRN [place] CONSTIPATION; Start 03/30/17 at 19:30 Pantoprazole (Protonix Iv) 40 mg DAILY@06 IV Last administered on 04/21/17 06: 46; Admin Dose 40 MG; Start 03/31/17 at 06:00 Hydralazine HCl (Apresoline) 10 mg Q6H PRN IV ELEVATED BLOOD PRESSURE; Start at 19:30 Nitroglycerin (Nitroglycerin (Sl Tab) 0.4 Mg) 1 tab Q5M PRN SL ANGINA; Start at 19:30 Hydromorphone HCl (Dilaudid [employer]) MG/HR CONTINUOUS R... Q4PCA IV Last administered on 04/21/17 08:31; Admin Dose 6 MG; Start 03/31/17 at 13:30 Escitalopram Oxalate (Lexapro) 20 mg DAILY PO Last administered on 04/21/17 08: 15; Admin Dose 20 MG; Start 04/11/17 at 09:00 Nystatin (Nystatin Susp) 5 ml QID PO Last administered on 04/21/17 16:15; Admin Dose 5 ML; Start 04/13/17 at 18:00 Potassium Chloride (Klor-Con 10) 10 meq BID@08,18 PO Last administered on 18:49; Admin Dose 10 MEQ; Start 04/17/17 at 08:00 Methylprednisolone Sodium Succinate (Solu-Medrol) 30 mg AM IV Last administered on 04/21/17 08:16; Admin Dose 30 MG; Start 04/18/17 at 09:00 Levofloxacin (Levaquin) 500 mg DAILY@06 NGT Last administered on 04/21/17 06:46 ; Admin Dose 500 MG; Start 04/18/17 at 06:00 Metronidazole (Flagyl) 500 mg Q8 PO Last administered on 04/21/17 21:51; Admin Dose 500 MG; Start 04/18/17 at 06:00 KIN ESTEBAN MD Apr 22, 2017 07:46
[2017-04-22] MEDS: POTASSIUM CHLORIDE (SR) 10 MEQ TAB PO SCH ×2 (08:00→17:45)
[2017-04-22] MEDS ORDERED: LEVOFLOXACIN 500 MG TAB NGT SCH (08:00)
[2017-04-22] MEDS ORDERED: LIDOCAINE 5% 35 GM OINT TOP PRN (09:30)
[2017-04-22] MEDS: ESCITALOPRAM 10 MG TAB PO SCH (09:38)
[2017-04-22] MEDS: LEVOFLOXACIN 500 MG TAB PO SCH (09:39)
[2017-04-22] MEDS: METHYLPREDNISOLONE 40 MG INJ IV SCH (09:39)
[2017-04-22] MEDS: NYSTATIN SUSP 5 ML CUP PO SCH ×4 (09:39→20:34)
[2017-04-22] MEDS: PANTOPRAZOLE 40 MG INJ IV SCH (09:40)
[2017-04-22 10:08] LABS: ADD SCAN DIFF NO
[2017-04-22 10:14] LABS: BASOPHILS % 0.2 % (0.0-2.0); EOSINOPHILS # 0.1 10^3/ul (0.0-0.5); EOSINOPHILS % 1.7 % (0.0-7.0); HEMOGLOBIN 10.3 g/dl (14.0-18.0); LYMPHOCYTES # 1.4 10^3/ul (0.8-2.9); LYMPHOCYTES % 17.1 % (15.0-51.0); MEAN CORPUSCULAR HEMOGLOBIN 30.6 pg (29.0-33.0); MEAN CORPUSCULAR HGB CONC 31.2 g/dl (32.0-37.0); MEAN CORPUSCULAR VOLUME 97.9 fl (82.0-101.0); MONOCYTE # 0.7 10^3/ul (0.3-0.9); MONOCYTES % 8.2 % (0.0-11.0); NEUTROPHIL # 6.1 10^3/ul (1.6-7.5); NEUTROPHILS % 72.3 % (39.0-77.0); PLATELET COUNT 416 10^3/UL (140-415); RED BLOOD COUNT 3.37 10^6/ul (4.70-6.10); WHITE BLOOD COUNT 8.4 10^3/ul (4.8-10.8)
[2017-04-22 10:35] LABS: INR 1.42; PARTIAL THROMBOPLASTIN TIME 26.5 Sec (25.0-35.0); PROTIME 17.4 Sec (12.2-14.2); PT RATIO 1.4
[2017-04-22 10:41] LABS: ALBUMIN 3.7 g/dl (3.3-4.9); ALBUMIN/GLOBULIN RATIO 1.12; BILIRUBIN,DIRECT 1.5 mg/dl (0.00-0.20); BILIRUBIN,TOTAL 2.5 mg/dl (0.2-1.3); CALCIUM 8.9 mg/dl (8.4-10.2); CREATININE 0.58 mg/dl (0.61-1.24); POTASSIUM 3.8 mmol/L (3.5-5.1)
--- NOTE | 2017-04-22 10:46 | PN ---
Date/Time of Note Date/Time of Note DATE: 04/22/17 TIME: 10:38 Assessment/Plan Lines/Catheters IV Catheter Type (from [facility]): Peripheral IV Andrews in Place (from [facility]): No Assessment/Plan Assessment/Plan [facility] Progress Note Date of Service: 04/22/17 Today's Impression & Plan: Overall stable and continues to slowly improve. No new issues. WBC remained normal over the weekend. Awaiting LFT's, but given the look of the bile in the bag, I suspect his numbers will be acceptable. No indication for acute surgical intervention. At this point, will cap the L biliary drain and if he does well overnight, he might be able to discharge to SNF as early as tomorrow. IMPORTANT: I do not believe patient should go to hospice after discharge. Our plan at this point is a few weeks of continued medical care (including management of flushing of both biliary drains with 10cc NS BID), intravenous fluids and attention to caloric intake and physical rehabilitation, prior to likely TACE. Patient may have a slow growing tumor that would allow him the luxury of a number of months or perhaps even longer life. Discussed with Dr. Hinds and Dr. Sanz. With above assessment, I've recommended the following for today: 1. Continued aggressive medical management 2. Aggressive nutritional support with increased oral intake. 3. Labs in am including LFT's 4. R biliary drain to gravity drainage 5. L biliary drain to get capped today 6. Flush both biliary drains with 10 cc NS BID (very important to be taught to patient, family and to the next level of care nurses) 7. Discontinue antimicrobials 8. Assisted activity with education on how to deal with his back 9. F/u on culture results and do more cultures if indicated clinically (still at risk for ongoing cholangitis, UTI, pneumonia, etc.) 10. Ongoing plans for SNF placement Thank you again for your great care of this very pleasant patient and wonderful family. If there are any questions, please feel free to call me at [phone]. TOTAL VISIT TIME: 20 minutes of which more than half was spent in [id number] discussion with the patient, possibly including family, as well as coordination of care between multiple physicians and providers. Disclaimer: Inadvertent spelling or grammatical errors are likely due to EHR/ dictation software use and do not reflect on the overall quality of patient care. Updated clinical summary: A very pleasant 61-year-old gentleman with significant past medical history including ulcerative colitis status post total proctocolectomy and ileoanal pouch as well as a number of other medical issues who was diagnosed with cholangiocarcinoma and underwent a radical bile duct resection that included extrahepatic bile duct and gallbladder at [facility], 2016, with final diagnosis of cholangiocarcinoma with 1/8 lymph node positive disease as well as low-grade dysplasia and carcinoma in situ at the proximal margin. The patient was readmitted to [facility] after a 2 month hospital stay at [facility] with increasing weakness, jaundice, and diffuse body pain. S/p perc drainage of right biliary system 04/03/17. : s/p placement of left biliary drain which traverses patient's anastomosis on that side. Right system has a tight anastomosis that could not be traversed. R biliary drain upsized 04/12/17. COMORBIDITIES: 1. History of ulcerative colitis status post total proctocolectomy and ileoanal pouch. 2. Diagnosis of primary sclerosing cholangitis since 2008 being cared for at various institutions such as [facility] and by various physicians with involvement of Dr. Krystian Adkins for hepatology. 3. History of hospitalization at [facility] for bile duct obstruction from mid December to early March with bile duct excision with cholecystectomy with removal of extrahepatic bile duct and Isabell-en-Y hepaticojejunostomy on 07/2017 with the above-mentioned pathology. 4. Chronic back pain, mainly lower, for the last 5 to 6 years. 5. Significant weight loss of more than 20 to 30 pounds over the last 6 months. 6. No history of lymphoma (note that this was reported erroneously in the patient's chart. The patient does not report any history of lymphoma in the past and that is also corroborated by the patient's family). 7. Status post multiple ERCPs and stenting in the past since 2005. 8. Elevated alpha fetoprotein 1.8 in 12/2016. 9. Elevated CA19-9 of 272.9 in 12/2016. 10. Normal CEA at 1.6 on 01/14/2017. 11. Status post sigmoidoscopy, 01/16/2017, showing moderate pouchitis and negative for dysplasia or malignancy. 12. S/p perc drainage of right biliary system 04/03/17. 13. 04/09/17: s/p placement of left biliary drain which traverses patient's anastomosis on that side. Right system has a tight anastomosis that could not be traversed. 14. Compression fracture 04/10/17 Subjective: No major events or complaints; no major abd pain and under control with medications; no n/v/d; no sob or cp; + flatus; + BM and normal for him; minimal activity. Objective: Vitals: See below Exam: GENERAL: On exam, the patient was sitting on the commode and appeared to be comfortable and in no acute distress. ABDOMEN: Soft, nontender and nondistended. Incisions are clean, dry and intact without any evidence of erythema, edema, discharge, or hernia. R and L biliary drains bilious. SKIN: Skin appears to be less jaundiced and feels warm to touch. NEUROLOGIC: Patient was awake, alert, and followed commands appropriately. Exam/Review of Systems Vital Signs Vitals Vital Signs Date Time Temp Pulse Resp B/P Pulse Ox O2 Delivery O2 Flow Rate FiO2 04/22/17 08:52 69 04/22/17 08:21 97.7 18 107/70 99 Intake and Output 04/21/17 04/21/17 04/22/17 15:00 23:00 07:00 Intake Total 1220 ml 800 ml Output Total 140 ml Balance 1080 ml 800 ml Results Result Diagram: 04/22/17 1002 04/20/17 0605 ZOE GOYAL M.D. Apr 22, 2017 10:46
[2017-04-22 11:19] LABS: MAGNESIUM 1.7 mg/dl (1.7-2.5); PHOSPHORUS 2.5 mg/dl (2.5-4.9)
--- NOTE | 2017-04-22 13:57 | PN ---
Date/Time of Note Date/Time of Note DATE: 04/22/17 TIME: 13:50 Assessment/Plan VTE Prophylaxis VTE Prophylaxis Intervention: SCD's Lines/Catheters IV Catheter Type (from Nrs): Peripheral IV Urinary Cath still in place: No Assessment/Plan Chief Complaint/Hosp Course A/P: 61 M with: 1. Metastatic cholangiocarcinoma with metastasis to the liver and lymph nodes. Status post cholecystectomy and excision of hepatic common bile duct with Isabell -en-Y hepaticojejunostomy on 01/24/2017. The patient being followed by oncology and hepatobiliary team. Poor prognosis. Biliraly drains in place - continue current care including pain control - f/u heme/Onc and surgery rec's - pt likely would benefit from SNF placement and close Heme/onc and surgery follow up, as mass may be amenable to further tx in outpt setting per discussion with surgery team today 2. History of Crohn's disease status post a proctocolectomy with J-pouch creation in 2005 - monitor 3. History of chronic primary sclerosing cholangitis - monitor 4. Sinus bradycardia, asymptomatic. Cardiology following - HR improved - monitor 5. Chronic back pain. Lumbar spine CT showing osteopenia with mild L2 compression fracture. Continue on analgesics, including dilaudid [employer] pump for now 6. Protein calorie malnutrition. Severe. Dietary supplements. 7. Normocytic normochromic anemia, most probably anemia of chronic disease. Monitor H and H closely. 8. Depression. Continue Lexapro. 9. Status post placement of left biliary drain on 04/09/2017. Continue management as per surgery. 10. Status post placement of a right biliary drain on 03/24/2017, management as per surgery. On antibiotics as per infectious disease. 11. Fluid, electrolytes and nutrition. Soft diet. 11. DVT prophylaxis with bilateral sequential compression devices. 12. Gastrointestinal prophylaxis. Proton pump inhibitors intervention planned. Plan. Continue current management. Plan is to discharge the patient to group home facility once cleared by surgery. Problems: Subjective 24 Hr Interval Summary Free Text/Dictation Pt had no acute events overnight. Hospice consult now on hold. Denies pain presently. Exam/Review of Systems Vital Signs Vitals Vital Signs Date Time Temp Pulse Resp B/P Pulse Ox O2 Delivery O2 Flow Rate FiO2 04/22/17 12:41 58 04/22/17 12:10 97.6 18 103/67 99 Intake and Output 04/21/17 04/21/17 04/22/17 15:00 23:00 07:00 Intake Total 1220 ml 800 ml Output Total 140 ml Balance 1080 ml 800 ml Exam GENERAL: frail-looking male patient lying in bed in no apparent distress, alert. HEENT: Head normocephalic and atraumatic. Eyes: Anicteric sclerae. Conjunctivae clear. ENT: Nasal septum is midline. Oral mucosa is dry. NECK: Supple. No JVD noticed. RESPIRATORY: Bilaterally clear to auscultation. No adventitious breath sounds. No use of accessory muscles of respiration. CARDIAC: Regular rate and rhythm with a systolic murmur. ABDOMEN: Soft and nondistended. Incisions clean, dry and intact. biliary drains in place EXTREMITIES: No cyanosis, no clubbing, no edema. NEUROLOGIC: The patient is awake, alert and oriented. Cranial nerves are grossly intact. Results Result Diagram: 04/22/17 1002 04/22/17 1002 Results 24 hrs Laboratory Tests Test 04/22/17 10:02 White Blood Count 8.4 Red Blood Count 3.37 L Hemoglobin 10.3 L Hematocrit 33.0 L Mean Corpuscular Volume 97.9 Mean Corpuscular Hemoglobin 30.6 Mean Corpuscular Hemoglobin Concent 31.2 L Red Cell Distribution Width 20.0 H Platelet Count 416 H Mean Platelet Volume 9.0 Neutrophils % 72.3 Lymphocytes % 17.1 Monocytes % 8.2 Eosinophils % 1.7 Basophils % 0.2 Nucleated Red Blood Cells % 0.0 Neutrophils # 6.1 Lymphocytes # 1.4 Monocytes # 0.7 Eosinophils # 0.1 Basophils # 0.0 Nucleated Red Blood Cells # 0.0 Prothrombin Time 17.4 H Prothrombin Time Ratio 1.4 INR International Normalized Ratio 1.42 Activated Partial Thromboplast Time 26.5 Sodium Level 138 Potassium Level 3.8 Chloride Level 104 Carbon Dioxide Level 26 Anion Gap 12 Blood Urea Nitrogen 20 Creatinine 0.58 L Glucose Level 108 Calcium Level 8.9 Phosphorus Level 2.5 Magnesium Level 1.7 Total Bilirubin 2.5 H Direct Bilirubin 1.50 H Indirect Bilirubin 1.0 Aspartate Amino Transf (AST/SGOT) 79 H Alanine Aminotransferase (ALT/SGPT) 72 H Alkaline Phosphatase 311 H Total Protein 7.0 Albumin 3.7 Globulin 3.30 H Albumin/Globulin Ratio 1.12 Medications Medications Current Medications Ondansetron HCl (Zofran Inj) 4 mg Q6H PRN IV NAUSEA AND/OR VOMITING; Start at 19:30 Acetaminophen (Tylenol Tab) 650 mg Q6H PRN PO PAIN LEVEL 1-3 OR FEVER; Start at 19:30 Docusate Sodium (Colace) 100 mg Q12H PRN PO CONSTIPATION; Start 03/30/17 at 19: 30 Magnesium Hydroxide (Milk Of Mag) 30 ml DAILY PRN PO CONSTIPATION; Start at 19:30 Sodium Biphosphate/ Sodium Phosphate (Fleet Enema) 133 ml DAILY PRN [place] CONSTIPATION; Start 03/30/17 at 19:30 Pantoprazole (Protonix Iv) 40 mg DAILY@06 IV Last administered on 04/22/17 09: 40; Admin Dose 40 MG; Start 03/31/17 at 06:00 Hydralazine HCl (Apresoline) 10 mg Q6H PRN IV ELEVATED BLOOD PRESSURE; Start at 19:30 Nitroglycerin (Nitroglycerin (Sl Tab) 0.4 Mg) 1 tab Q5M PRN SL ANGINA; Start at 19:30 Hydromorphone HCl (Dilaudid [employer]) MG/HR CONTINUOUS R... Q4PCA IV Last administered on 04/21/17 08:31; Admin Dose 6 MG; Start 03/31/17 at 13:30 Escitalopram Oxalate (Lexapro) 20 mg DAILY PO Last administered on 04/22/17 09: 38; Admin Dose 20 MG; Start 04/11/17 at 09:00 Nystatin (Nystatin Susp) 5 ml QID PO Last administered on 04/22/17 09:39; Admin Dose 5 ML; Start 04/13/17 at 18:00 Potassium Chloride (Klor-Con 10) 10 meq BID@08,18 PO Last administered on 08:00; Admin Dose 10 MEQ; Start 04/17/17 at 08:00 Methylprednisolone Sodium Succinate (Solu-Medrol) 30 mg AM IV Last administered on 04/22/17 09:39; Admin Dose 30 MG; Start 04/18/17 at 09:00 Metronidazole (Flagyl) 500 mg Q8H PO Last administered on 6/5/17at 09:39; Admin Dose 500 MG; Start 04/22/17 at 08:00 Levofloxacin (Levaquin) 500 mg DAILY@06 PO Last administered on 04/22/17 09:39 ; Admin Dose 500 MG; Start 04/22/17 at 09:00 Lidocaine (Lidocaine 5% Oint) 1 applic QID PRN TOP PAIN Last administered on 12:16; Admin Dose 1 APPLIC; Start 04/22/17 at 09:30 ORION GUILLEN Apr 22, 2017 13:57
--- NOTE | 2017-04-22 18:09 | PN ---
DATE: 04/22/2017 CARDIOLOGY FOLLOWUP SUBJECTIVE: Discussed with the staff. Rhythm strip reviewed. The patient remains in sinus rhythm, sinus bradycardia. No syncope, no presyncope, no long pauses noted. His abdominal pain is improve d. MEDICATIONS: Reviewed. PHYSICAL EXAMINATION: VITAL SIGNS: Temperature 97.4, heart rate of 60, blood pressure 104/68, respiration rate 18, satura ting 91 to 99%. HEENT: Normocephalic, atraumatic. Thin, cachectic looking gentleman in no acute distress. CARDIOVASCULAR: Bradycardic. PULMONARY: Anteriorly with no wheezes. GASTROINTESTINAL: Soft. No rebound, no guarding. EXTREMITIES: No significant lower extremity edema. NEUROLOGIC: Awake, responds appropriately. PSYCHIATRIC: Appears to be calm there are multiple ecchymoses. 1. No active bleeding. LABORATORY: WBC of 8.4, hemoglobin 10.3, platelets of 416. Sodium 138, potassium 3.8, BUN of 20, c reatinine 0.58, glucose 108, ALT of 72. ASSESSMENT AND PLAN: 1. Sick sinus syndrome with marked sinus bradycardia, currently asymptomatic. Continue to monitor only. 2. ____ cholangiocarcinoma. 3. History of chronic primary sclerosing cholangitis, history of Crohn disease, ____ low albumin le nato. 4. Anemia. 5. Depression. RECOMMENDATIONS: We will follow up the surgical recommendations, code status DNR. Conservative med ical therapy will be continued. We will monitor only at this point. Electrolytes will be corrected as needed. Dictated By: POOJA CHAVEZ MD AV/JASMYNE Conf#: [id number] DID#: [id number] CC: ORION GUILLEN;*EndCC*
--- NOTE | 2017-04-22 23:38 | CONS ---
Date/Time of Note Date/Time of Note DATE: 04/22/17 TIME: 23:37 Assessment/Plan Assessment/Plan Chief Complaint/Hosp Course 1. 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 postop , NOW WITH Metastatic dis in the liver lobular area of elevated T2 signal is seen in the central liver worrisome for a mass possibly cholangiocarcinoma and this causes prominent intrahepatic biliary ductal dilatation of both the left and right intrahepatic biliary ducts with central loss of signal at the area of the mass. CT and MRI- REVIEWED TUMOR MARKERS : ca [id number] [id number] , c/w to tumor progression hepatobiliary consult noted- D/W D LEÓN POST drain placement in the right lobe of the liver- c/w abscess POST stenting across the anastomosis with IR. PTBD LFT - noted 2. Obstructive jaundice. Stable, ro stricture/recurrent tumor. MRCP/GI eval, hepatobiliary surgery consult- REVIEWED surgical f-up Dr Anderson noted POST biliary drainage by interventional radiology 3. Chronic Crohn's disease status post total proctocolectomy with J-pouch creation 2005. 4. Chronic primary sclerosing cholangitis w cholangiocarcinoma. Needs advanced care planning evaluated. Poor prognosis. Performance status questionable at this time for chemotherapy & bilirubin needs some improvement. 5. Malnutrition; oral feeds/Megace vs TPN 6. Active pouchitis? 7. Postop day 16 bd excision w cholecystectomy, excision of extrahepatic cbd and Isabell-en-Y hepaticojejunostomy. 8. Failure to thrive, may need snf 9. Anemia- WILL TRANSFUSE PRBC PRN 10. Reactive thrombocytosis 11. Dyslipidemia. POOR PS agree with transfer to SNF Hospice consult now on hold. Problems: Consultation Date/Type/Reason Admit Date/Time March 30, 2017 at 18:53 Initial Consult Date 03/31/17 [facility] Referring Provider: HUMZA JAIME MD Exam/Review of Systems Vital Signs Vitals Vital Signs Date Time Temp Pulse Resp B/P Pulse Ox O2 Delivery O2 Flow Rate FiO2 04/22/17 22:20 95 3.0 32 04/22/17 20:28 98.1 63 16 96/61 Room Air Intake and Output 04/21/17 04/21/17 04/22/17 15:00 23:00 07:00 Intake Total 1220 ml 800 ml Output Total 140 ml Balance 1080 ml 800 ml Exam Exam GENERAL: frail-looking male patient lying in bed in no apparent distress, alert. HEENT: Head normocephalic and atraumatic. Eyes: Anicteric sclerae. Conjunctivae clear. ENT: Nasal septum is midline. Oral mucosa is dry. NECK: Supple. No JVD noticed. RESPIRATORY: Bilaterally clear to auscultation. No adventitious breath sounds. No use of accessory muscles of respiration. CARDIAC: Regular rate and rhythm with a systolic murmur. ABDOMEN: Soft and nondistended. Incisions clean, dry and intact. biliary drains in place EXTREMITIES: No cyanosis, no clubbing, no edema. NEUROLOGIC: The patient is awake, alert and oriented. Cranial nerves are grossly intact. Results Result Diagram: 04/22/17 1002 04/22/17 1002 Results 24 hrs Laboratory Tests Test 04/22/17 10:02 White Blood Count 8.4 Red Blood Count 3.37 L Hemoglobin 10.3 L Hematocrit 33.0 L Mean Corpuscular Volume 97.9 Mean Corpuscular Hemoglobin 30.6 Mean Corpuscular Hemoglobin Concent 31.2 L Red Cell Distribution Width 20.0 H Platelet Count 416 H Mean Platelet Volume 9.0 Neutrophils % 72.3 Lymphocytes % 17.1 Monocytes % 8.2 Eosinophils % 1.7 Basophils % 0.2 Nucleated Red Blood Cells % 0.0 Neutrophils # 6.1 Lymphocytes # 1.4 Monocytes # 0.7 Eosinophils # 0.1 Basophils # 0.0 Nucleated Red Blood Cells # 0.0 Prothrombin Time 17.4 H Prothrombin Time Ratio 1.4 INR International Normalized Ratio 1.42 Activated Partial Thromboplast Time 26.5 Sodium Level 138 Potassium Level 3.8 Chloride Level 104 Carbon Dioxide Level 26 Anion Gap 12 Blood Urea Nitrogen 20 Creatinine 0.58 L Glucose Level 108 Calcium Level 8.9 Phosphorus Level 2.5 Magnesium Level 1.7 Total Bilirubin 2.5 H Direct Bilirubin 1.50 H Indirect Bilirubin 1.0 Aspartate Amino Transf (AST/SGOT) 79 H Alanine Aminotransferase (ALT/SGPT) 72 H Alkaline Phosphatase 311 H Total Protein 7.0 Albumin 3.7 Globulin 3.30 H Albumin/Globulin Ratio 1.12 Medications Medications Current Medications Ondansetron HCl (Zofran Inj) 4 mg Q6H PRN IV NAUSEA AND/OR VOMITING; Start at 19:30 Acetaminophen (Tylenol Tab) 650 mg Q6H PRN PO PAIN LEVEL 1-3 OR FEVER; Start at 19:30 Docusate Sodium (Colace) 100 mg Q12H PRN PO CONSTIPATION; Start 03/30/17 at 19: 30 Magnesium Hydroxide (Milk Of Mag) 30 ml DAILY PRN PO CONSTIPATION; Start at 19:30 Sodium Biphosphate/ Sodium Phosphate (Fleet Enema) 133 ml DAILY PRN [place] CONSTIPATION; Start 03/30/17 at 19:30 Pantoprazole (Protonix Iv) 40 mg DAILY@06 IV Last administered on 04/22/17 09: 40; Admin Dose 40 MG; Start 03/31/17 at 06:00 Hydralazine HCl (Apresoline) 10 mg Q6H PRN IV ELEVATED BLOOD PRESSURE; Start at 19:30 Nitroglycerin (Nitroglycerin (Sl Tab) 0.4 Mg) 1 tab Q5M PRN SL ANGINA; Start at 19:30 Hydromorphone HCl (Dilaudid PRO[employer]) MG/HR CONTINUOUS R... Q4PCA IV Last administered on 04/21/17 08:31; Admin Dose 6 MG; Start 03/31/17 at 13:30 Escitalopram Oxalate (Lexapro) 20 mg DAILY PO Last administered on 04/22/17 09: 38; Admin Dose 20 MG; Start 04/11/17 at 09:00 Nystatin (Nystatin Susp) 5 ml QID PO Last administered on 04/22/17 17:45; Admin Dose 5 ML; Start 04/13/17 at 18:00 Potassium Chloride (Klor-Con 10) 10 meq BID@08,18 PO Last administered on 17:45; Admin Dose 10 MEQ; Start 04/17/17 at 08:00 Methylprednisolone Sodium Succinate (Solu-Medrol) 30 mg AM IV Last administered on 04/22/17 09:39; Admin Dose 30 MG; Start 04/18/17 at 09:00 Metronidazole (Flagyl) 500 mg Q8H PO Last administered on 04/22/17 16:00; Admin Dose 500 MG; Start 04/22/17 at 08:00 Levofloxacin (Levaquin) 500 mg DAILY@06 PO Last administered on 04/22/17 09:39 ; Admin Dose 500 MG; Start 04/22/17 at 09:00 Lidocaine (Lidocaine 5% Oint) 1 applic QID PRN TOP PAIN Last administered on t 12:16; Admin Dose 1 APPLIC; Start 04/22/17 at 09:30 KIN ESTEBAN MD Apr 22, 2017 23:38
[2017-04-23] VITALS (11 sets, daily range): BP systolic 98–117; BP diastolic 59–73; PULSE 56–86; RESP 18–20
[2017-04-23] MEDS: LEVOFLOXACIN 500 MG TAB PO SCH (06:19)
[2017-04-23] MEDS: PANTOPRAZOLE 40 MG INJ IV SCH (06:21)
--- NOTE | 2017-04-23 08:09 | PN ---
Date/Time of Note Date/Time of Note DATE: 04/23/17 TIME: 08:06 Assessment/Plan Lines/Catheters IV Catheter Type (from Nrsg): Peripheral IV Andrews in Place (from Nrsg): No Assessment/Plan Assessment/Plan [facility] Progress Note Date of Service: 04/23/17 Today's Impression & Plan: Overall stable. No new issues. Clinically tolerating L biliary drain being capped. Slight RLQ abd pain likely unrelated (? constipation); labs pending. If labs acceptable, he would be ready for SNF when a bed is available. With above assessment, I've recommended the following for today: 1. Continued aggressive medical management 2. Aggressive nutritional support with increased oral intake. 3. Labs in am including LFT's 4. R biliary drain to gravity drainage 5. L biliary drain to remain capped 6. Flush both biliary drains with 10 cc NS BID (very important to be taught to patient, family and to the next level of care nurses) 7. Discontinue antimicrobials 8. Assisted activity with education on how to deal with his back 9. F/u on culture results and do more cultures if indicated clinically (still at risk for ongoing cholangitis, UTI, pneumonia, etc.) 10. Ongoing plans for SNF placement Thank you again for your great care of this very pleasant patient and wonderful family. If there are any questions, please feel free to call me at [phone]. TOTAL VISIT TIME: 20 minutes of which more than half was spent in [id number] discussion with the patient, possibly including family, as well as coordination of care between multiple physicians and providers. Disclaimer: Inadvertent spelling or grammatical errors are likely due to EHR/ dictation software use and do not reflect on the overall quality of patient care. Updated clinical summary: A very pleasant 61-year-old gentleman with significant past medical history including ulcerative colitis status post total proctocolectomy and ileoanal pouch as well as a number of other medical issues who was diagnosed with cholangiocarcinoma and underwent a radical bile duct resection that included extrahepatic bile duct and gallbladder at [facility], 2016, with final diagnosis of cholangiocarcinoma with 1/8 lymph node positive disease as well as low-grade dysplasia and carcinoma in situ at the proximal margin. The patient was readmitted to [facility] after a 2 month hospital stay at [facility] with increasing weakness, jaundice, and diffuse body pain. S/p perc drainage of right biliary system 04/03/17. : s/p placement of left biliary drain which traverses patient's anastomosis on that side. Right system has a tight anastomosis that could not be traversed. R biliary drain upsized 04/12/17. COMORBIDITIES: 1. History of ulcerative colitis status post total proctocolectomy and ileoanal pouch. 2. Diagnosis of primary sclerosing cholangitis since 2008 being cared for at various institutions such as [facility] and by various physicians with involvement of Dr. Krystian Adkins for hepatology. 3. History of hospitalization at [facility] for bile duct obstruction from mid December to early March with bile duct excision with cholecystectomy with removal of extrahepatic bile duct and Isabell-en-Y hepaticojejunostomy on 07/2017 with the above-mentioned pathology. 4. Chronic back pain, mainly lower, for the last 5 to 6 years. 5. Significant weight loss of more than 20 to 30 pounds over the last 6 months. 6. No history of lymphoma (note that this was reported erroneously in the patient's chart. The patient does not report any history of lymphoma in the past and that is also corroborated by the patient's family). 7. Status post multiple ERCPs and stenting in the past since 2005. 8. Elevated alpha fetoprotein 1.8 in 12/2016. 9. Elevated CA19-9 of 272.9 in 12/2016. 10. Normal CEA at 1.6 on 01/14/2017. 11. Status post sigmoidoscopy, 01/16/2017, showing moderate pouchitis and negative for dysplasia or malignancy. 12. S/p perc drainage of right biliary system 04/03/17. 13. 04/09/17: s/p placement of left biliary drain which traverses patient's anastomosis on that side. Right system has a tight anastomosis that could not be traversed. 14. Compression fracture 04/10/17 Subjective: No major events or complaints; no major abd pain and under control with medications; no n/v/d; no sob or cp; + flatus; + BM and normal for him; minimal activity. Slight pain with palpation in the RLQ. Objective: Vitals: See below Exam: GENERAL: On exam, the patient was sitting on the commode and appeared to be comfortable and in no acute distress. ABDOMEN: Soft, nontender with the exception of slight tenderness to RLQ pressure , and nondistended. Incisions are clean, dry and intact without any evidence of erythema, edema, discharge, or hernia. R biliary drains bilious. L biliary drain capped. SKIN: Skin appears to be pink and feels warm to touch. NEUROLOGIC: Patient was awake, alert, and followed commands appropriately. Exam/Review of Systems Vital Signs Vitals Vital Signs Date Time Temp Pulse Resp B/P Pulse Ox O2 Delivery O2 Flow Rate FiO2 04/23/17 06:49 16 04/23/17 04:02 60 04/23/17 01:43 95 21 04/23/17 00:22 97.5 117/73 04/22/17 20:28 Room Air Intake and Output 04/22/17 04/22/17 04/23/17 15:00 23:00 07:00 Intake Total 900 ml 400 ml Balance 900 ml 400 ml Results Result Diagram: 04/22/17 1002 04/22/17 1002 ZOE GOYAL M.D. Apr 23, 2017 08:09
[2017-04-23] MEDS: NYSTATIN SUSP 5 ML CUP PO SCH ×5 (08:22→21:10)
[2017-04-23] MEDS: ESCITALOPRAM 10 MG TAB PO SCH (08:24)
[2017-04-23] MEDS: POTASSIUM CHLORIDE (SR) 10 MEQ TAB PO SCH ×2 (08:24→17:47)
[2017-04-23] MEDS: metroNIDAZOLE 500 MG TAB PO SCH ×3 (08:24→23:50)
[2017-04-23] MEDS: METHYLPREDNISOLONE 40 MG INJ IV SCH (08:25)
[2017-04-23 09:34] LABS: ADD SCAN DIFF NO
[2017-04-23 09:42] LABS: BASOPHILS % 0.3 % (0.0-2.0); EOSINOPHILS # 0.2 10^3/ul (0.0-0.5); EOSINOPHILS % 2.8 % (0.0-7.0); HEMATOCRIT 33.8 % (42.0-52.0); HEMOGLOBIN 10.5 g/dl (14.0-18.0); LYMPHOCYTES # 1.6 10^3/ul (0.8-2.9); LYMPHOCYTES % 22.1 % (15.0-51.0); MEAN CORPUSCULAR HEMOGLOBIN 30.4 pg (29.0-33.0); MEAN CORPUSCULAR HGB CONC 31.1 g/dl (32.0-37.0); MEAN PLATELET VOLUME 9.1 fl (7.4-10.4); MONOCYTE # 0.7 10^3/ul (0.3-0.9); MONOCYTES % 9.8 % (0.0-11.0); NEUTROPHIL # 4.6 10^3/ul (1.6-7.5); NEUTROPHILS % 64.6 % (39.0-77.0); PLATELET COUNT 427 10^3/UL (140-415); RED BLOOD COUNT 3.45 10^6/ul (4.70-6.10); WHITE BLOOD COUNT 7.1 10^3/ul (4.8-10.8)
[2017-04-23 10:02] LABS: ALBUMIN 3.6 g/dl (3.3-4.9); BILIRUBIN,DIRECT 1.9 mg/dl (0.00-0.20); BILIRUBIN,INDIRECT 1.2 mg/dl (0-1.1); BILIRUBIN,TOTAL 3.1 mg/dl (0.2-1.3)
--- NOTE | 2017-04-23 12:12 | PN ---
DATE: 04/23/2017 CARDIOLOGY FOLLOWUP SUBJECTIVE: Discussed with the staff. Rhythm strip was reviewed. The patient remains in sinus rhy thm. Heart rate has remained overall stable, on the low side but stable. Blood pressure has remain ed stable. No chest pain or pressure. No palpitation. No syncope, no presyncope. Still complaini ng of abdominal pain "gas pain." MEDICATIONS: Reviewed. PHYSICAL EXAMINATION: VITAL SIGNS: Temperature 98.4, heart rate of 63, blood pressure 114/64, respiratory rate of 18, sat urating 97%. HEENT: Normocephalic, atraumatic. Thin, cachectic-looking gentleman. CARDIOVASCULAR: Regular rate and rhythm. PULMONARY: With no wheezes. GASTROINTESTINAL: Soft, nontender. EXTREMITIES: No significant edema. NEUROLOGIC: Awake and alert. PSYCHIATRIC: Appeared to be calm. LABORATORY DATA: WBC of 7.1, hemoglobin 10.5, platelets of 427. Bilirubin 1.9, AST of 73, ALT of 7 5. ASSESSMENT AND PLAN: 1. Sick sinus syndrome, marked sinus bradycardia, currently atraumatic. appears to be improving as well. Continue to monitor only. 2. History of cholangiocarcinoma. 3. History of chronic primary sclerosing cholangitis. 4. History of Crohn's disease. 5. Malnutrition with low albumin level. 6. Anemia. 7. Depression. RECOMMENDATIONS: Continue nutritional support. Continue postop care. Follow up with surgery recom mendations. Correct electrolytes as needed. Dictated By: POOJA BISHOP/JASMYNE Conf#: [id number] DID#: [id number] CC: ORION GUILLEN;*EndCC*
--- NOTE | 2017-04-23 13:57 | PN ---
Date/Time of Note Date/Time of Note DATE: 04/23/17 TIME: 13:51 Assessment/Plan VTE Prophylaxis VTE Prophylaxis Intervention: SCD's Lines/Catheters IV Catheter Type (from Nrs): Peripheral IV Urinary Cath still in place: No Assessment/Plan Chief Complaint/Hosp Course A/P: 61 M with: 1. Metastatic cholangiocarcinoma with metastasis to the liver and lymph nodes. Status post cholecystectomy and excision of hepatic common bile duct with Isabell -en-Y hepaticojejunostomy on 01/24/2017. The patient being followed by oncology and hepatobiliary team. Poor prognosis. Biliary drains in place, one is capped. - continue current care including pain control - f/u heme/Onc and surgery rec's - pt likely would benefit from SNF placement and close Heme/onc and surgery follow up, as mass may be amenable to further tx in outpt setting (per discussion with surgery team) - CM actively working on this. 2. History of Crohn's disease status post a proctocolectomy with J-pouch creation in 2005 - monitor 3. History of chronic primary sclerosing cholangitis - monitor 4. Sinus bradycardia, asymptomatic. Cardiology following - HR improved - monitor 5. Chronic back pain. Lumbar spine CT showing osteopenia with mild L2 compression fracture. 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 Protein calorie malnutrition. Severe. Dietary supplements. 7. Normocytic normochromic anemia, most probably anemia of chronic disease. Monitor H and H closely. 8. Depression. Continue Lexapro. 9. Status post placement of left biliary drain on 04/09/2017. Continue management as per surgery. 10. Status post placement of a right biliary drain on 03/24/2017, management as per surgery. On antibiotics as per infectious disease. 11. Fluid, electrolytes and nutrition. Soft diet. 11. DVT prophylaxis with bilateral sequential compression devices. 12. Gastrointestinal prophylaxis. Proton pump inhibitors intervention planned. Plan. Continue current management. Plan is to discharge the patient to half-way facility when available. Problems: Subjective 24 Hr Interval Summary Free Text/Dictation No acute events overnight. Exam/Review of Systems Vital Signs Vitals Vital Signs Date Time Temp Pulse Resp B/P Pulse Ox O2 Delivery O2 Flow Rate FiO2 04/23/17 12:00 86 04/23/17 12:00 15 04/23/17 11:55 97.9 98/59 99 04/23/17 01:43 21 04/22/17 20:28 Room Air Intake and Output 04/22/17 04/22/17 04/23/17 15:00 23:00 07:00 Intake Total 900 ml 400 ml Balance 900 ml 400 ml Exam GENERAL: frail-looking male patient lying in bed in no apparent distress, alert. HEENT: Head normocephalic and atraumatic. Eyes: Anicteric sclerae. Conjunctivae clear. ENT: Nasal septum is midline. Oral mucosa is dry. NECK: Supple. No JVD noticed. RESPIRATORY: Bilaterally clear to auscultation. No adventitious breath sounds. No use of accessory muscles of respiration. CARDIAC: Regular rate and rhythm with a systolic murmur. ABDOMEN: Soft and nondistended. Incisions clean, dry and intact. biliary drains in place EXTREMITIES: No cyanosis, no clubbing, no edema. NEUROLOGIC: The patient is awake, alert and oriented. Cranial nerves are grossly intact. Results Result Diagram: 04/23/17 0900 04/22/17 1002 Results 24 hrs Laboratory Tests Test 04/23/17 06:26 04/23/17 09:00 Lab Scanned Report BLOOD TRANSFUSION White Blood Count 7.1 Red Blood Count 3.45 L Hemoglobin 10.5 L Hematocrit 33.8 L Mean Corpuscular Volume 98.0 Mean Corpuscular Hemoglobin 30.4 Mean Corpuscular Hemoglobin Concent 31.1 L Red Cell Distribution Width 20.0 H Platelet Count 427 H Mean Platelet Volume 9.1 Neutrophils % 64.6 Lymphocytes % 22.1 Monocytes % 9.8 Eosinophils % 2.8 Basophils % 0.3 Nucleated Red Blood Cells % 0.0 Neutrophils # 4.6 Lymphocytes # 1.6 Monocytes # 0.7 Eosinophils # 0.2 Basophils # 0.0 Nucleated Red Blood Cells # 0.0 Total Bilirubin 3.1 H Direct Bilirubin 1.90 H Indirect Bilirubin 1.2 H Aspartate Amino Transf (AST/SGOT) 73 H Alanine Aminotransferase (ALT/SGPT) 75 H Alkaline Phosphatase 305 H Total Protein 7.0 Albumin 3.6 Medications Medications Current Medications Ondansetron HCl (Zofran Inj) 4 mg Q6H PRN IV NAUSEA AND/OR VOMITING; Start at 19:30 Acetaminophen (Tylenol Tab) 650 mg Q6H PRN PO PAIN LEVEL 1-3 OR FEVER; Start at 19:30 Docusate Sodium (Colace) 100 mg Q12H PRN PO CONSTIPATION; Start 03/30/17 at 19: 30 Magnesium Hydroxide (Milk Of Mag) 30 ml DAILY PRN PO CONSTIPATION; Start at 19:30 Sodium Biphosphate/ Sodium Phosphate (Fleet Enema) 133 ml DAILY PRN [place] CONSTIPATION; Start 03/30/17 at 19:30 Pantoprazole (Protonix Iv) 40 mg DAILY@06 IV Last administered on 04/23/17 06: 21; Admin Dose 40 MG; Start 03/31/17 at 06:00 Hydralazine HCl (Apresoline) 10 mg Q6H PRN IV ELEVATED BLOOD PRESSURE; Start at 19:30 Nitroglycerin (Nitroglycerin (Sl Tab) 0.4 Mg) 1 tab Q5M PRN SL ANGINA; Start at 19:30 Hydromorphone HCl (Dilaudid TOLL TEST WORKER) MG/HR CONTINUOUS R... Q4PCA IV Last administered on 04/21/17 08:31; Admin Dose 6 MG; Start 03/31/17 at 13:30 Escitalopram Oxalate (Lexapro) 20 mg DAILY PO Last administered on 04/23/17 08: 24; Admin Dose 20 MG; Start 04/11/17 at 09:00 Nystatin (Nystatin Susp) 5 ml QID PO Last administered on 04/22/17 17:45; Admin Dose 5 ML; Start 04/13/17 at 18:00 Potassium Chloride (Klor-Con 10) 10 meq BID@08,18 PO Last administered on 08:24; Admin Dose 10 MEQ; Start 04/17/17 at 08:00 Methylprednisolone Sodium Succinate (Solu-Medrol) 30 mg AM IV Last administered on 04/23/17 08:25; Admin Dose 30 MG; Start 04/18/17 at 09:00 Metronidazole (Flagyl) 500 mg Q8H PO Last administered on 04/23/17 08:24; Admin Dose 500 MG; Start 04/22/17 at 08:00 Levofloxacin (Levaquin) 500 mg DAILY@06 PO Last administered on 04/23/17 06:19 ; Admin Dose 500 MG; Start 04/22/17 at 09:00 Lidocaine (Lidocaine 5% Oint) 1 applic QID PRN TOP PAIN Last administered on t 12:16; Admin Dose 1 APPLIC; Start 04/22/17 at 09:30 ORION GUILLEN Apr 23, 2017 13:57
--- NOTE | 2017-04-23 18:16 | CONS ---
Date/Time of Note Date/Time of Note DATE: 04/23/17 TIME: 18:15 Assessment/Plan Assessment/Plan Chief Complaint/Hosp Course 1. 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 postop , NOW WITH Metastatic dis in the liver lobular area of elevated T2 signal is seen in the central liver worrisome for a mass possibly cholangiocarcinoma and this causes prominent intrahepatic biliary ductal dilatation of both the left and right intrahepatic biliary ducts with central loss of signal at the area of the mass. CT and MRI- REVIEWED TUMOR MARKERS : ca 19-9 1420 , c/w to tumor progression hepatobiliary consult noted- D/W D LEÓN POST drain placement in the right lobe of the liver- c/w abscess POST stenting across the anastomosis with IR. PTBD LFT - noted 2. Obstructive jaundice. Stable, ro stricture/recurrent tumor. MRCP/GI eval, hepatobiliary surgery consult- REVIEWED surgical f-up Dr Anderson noted POST biliary drainage by interventional radiology 3. Chronic Crohn's disease status post total proctocolectomy with J-pouch creation 2005. 4. Chronic primary sclerosing cholangitis w cholangiocarcinoma. Needs advanced care planning evaluated. Poor prognosis. Performance status questionable at this time for chemotherapy & bilirubin needs some improvement. 5. Malnutrition; oral feeds/Megace vs TPN 6. Active pouchitis? 7. Postop day 16 bd excision w cholecystectomy, excision of extrahepatic cbd and Isabell-en-Y hepaticojejunostomy. 8. Failure to thrive, may need snf 9. Anemia- WILL TRANSFUSE PRBC PRN 10. Reactive thrombocytosis 11. Dyslipidemia. POOR PS agree with transfer to SNF Hospice consult now on hold. DC PLANNING IN PROCESS Problems: Consultation Date/Type/Reason Admit Date/Time March 30, 2017 at 18:53 Initial Consult Date 03/31/17 Type of Consultation: hemeon Referring Provider: HUMZA JAIME MD 24 HR Interval Summary Free Text/Dictation ALL NOTED PT IS FELLING BETTER COUNT STABLE Exam/Review of Systems Vital Signs Vitals Vital Signs Date Time Temp Pulse Resp B/P Pulse Ox O2 Delivery O2 Flow Rate FiO2 04/23/17 16:00 56 04/23/17 16:00 16 04/23/17 15:41 97.9 113/67 98 04/23/17 01:43 21 04/22/17 20:28 Room Air Intake and Output 04/22/17 04/22/17 04/23/17 15:00 23:00 07:00 Intake Total 900 ml 400 ml Balance 900 ml 400 ml Exam Exam GENERAL: frail-looking male patient lying in bed in no apparent distress, alert. HEENT: Head normocephalic and atraumatic. Eyes: Anicteric sclerae. Conjunctivae clear. ENT: Nasal septum is midline. Oral mucosa is dry. NECK: Supple. No JVD noticed. RESPIRATORY: Bilaterally clear to auscultation. No adventitious breath sounds. No use of accessory muscles of respiration. CARDIAC: Regular rate and rhythm with a systolic murmur. ABDOMEN: Soft and nondistended. Incisions clean, dry and intact. biliary drains in place EXTREMITIES: No cyanosis, no clubbing, no edema. NEUROLOGIC: The patient is awake, alert and oriented. Cranial nerves are grossly intact. Results Result Diagram: 04/23/17 0900 04/22/17 1002 Results 24 hrs Laboratory Tests Test 04/23/17 06:26 04/23/17 09:00 Lab Scanned Report BLOOD TRANSFUSION White Blood Count 7.1 Red Blood Count 3.45 L Hemoglobin 10.5 L Hematocrit 33.8 L Mean Corpuscular Volume 98.0 Mean Corpuscular Hemoglobin 30.4 Mean Corpuscular Hemoglobin Concent 31.1 L Red Cell Distribution Width 20.0 H Platelet Count 427 H Mean Platelet Volume 9.1 Neutrophils % 64.6 Lymphocytes % 22.1 Monocytes % 9.8 Eosinophils % 2.8 Basophils % 0.3 Nucleated Red Blood Cells % 0.0 Neutrophils # 4.6 Lymphocytes # 1.6 Monocytes # 0.7 Eosinophils # 0.2 Basophils # 0.0 Nucleated Red Blood Cells # 0.0 Total Bilirubin 3.1 H Direct Bilirubin 1.90 H Indirect Bilirubin 1.2 H Aspartate Amino Transf (AST/SGOT) 73 H Alanine Aminotransferase (ALT/SGPT) 75 H Alkaline Phosphatase 305 H Total Protein 7.0 Albumin 3.6 Medications Medications Current Medications Ondansetron HCl (Zofran Inj) 4 mg Q6H PRN IV NAUSEA AND/OR VOMITING; Start at 19:30 Acetaminophen (Tylenol Tab) 650 mg Q6H PRN PO PAIN LEVEL 1-3 OR FEVER; Start at 19:30 Docusate Sodium (Colace) 100 mg Q12H PRN PO CONSTIPATION; Start 03/30/17 at 19: 30 Magnesium Hydroxide (Milk Of Mag) 30 ml DAILY PRN PO CONSTIPATION; Start at 19:30 Sodium Biphosphate/ Sodium Phosphate (Fleet Enema) 133 ml DAILY PRN [place] CONSTIPATION; Start 03/30/17 at 19:30 Pantoprazole (Protonix Iv) 40 mg DAILY@06 IV Last administered on 04/23/17 06: 21; Admin Dose 40 MG; Start 03/31/17 at 06:00 Hydralazine HCl (Apresoline) 10 mg Q6H PRN IV ELEVATED BLOOD PRESSURE; Start at 19:30 Nitroglycerin (Nitroglycerin (Sl Tab) 0.4 Mg) 1 tab Q5M PRN SL ANGINA; Start at 19:30 Hydromorphone HCl (Dilaudid [employer]) MG/HR CONTINUOUS R... Q4PCA IV Last administered on 04/21/17 08:31; Admin Dose 6 MG; Start 03/31/17 at 13:30 Escitalopram Oxalate (Lexapro) 20 mg DAILY PO Last administered on 04/23/17 08: 24; Admin Dose 20 MG; Start 04/11/17 at 09:00 Nystatin (Nystatin Susp) 5 ml QID PO Last administered on 04/22/17 17:45; Admin Dose 5 ML; Start 04/13/17 at 18:00 Potassium Chloride (Klor-Con 10) 10 meq BID@08,18 PO Last administered on 17:47; Admin Dose 10 MEQ; Start 04/17/17 at 08:00 Methylprednisolone Sodium Succinate (Solu-Medrol) 30 mg AM IV Last administered on 04/23/17 08:25; Admin Dose 30 MG; Start 04/18/17 at 09:00 Metronidazole (Flagyl) 500 mg Q8H PO Last administered on 04/23/17 16:56; Admin Dose 500 MG; Start 04/22/17 at 08:00 Levofloxacin (Levaquin) 500 mg DAILY@06 PO Last administered on 04/23/17 06:19 ; Admin Dose 500 MG; Start 04/22/17 at 09:00 Lidocaine (Lidocaine 5% Oint) 1 applic QID PRN TOP PAIN Last administered on 6/ 5/17at 12:16; Admin Dose 1 APPLIC; Start 04/22/17 at 09:30 KIN ESTEBAN MD Apr 23, 2017 18:16
[2017-04-24] MEDS: HYDROmorphONE 0.2 MG/ML PCA IV SCH (01:36)
[2017-04-24] MEDS: PANTOPRAZOLE 40 MG INJ IV SCH (05:26)
[2017-04-24] MEDS: LEVOFLOXACIN 500 MG TAB PO SCH (05:26)
[2017-04-24 07:53] VITALS: BP 112/70; RESP 18
[2017-04-24] MEDS: metroNIDAZOLE 500 MG TAB PO SCH ×3 (08:30→23:21)
[2017-04-24] MEDS: NYSTATIN SUSP 5 ML CUP PO SCH ×4 (08:30→21:46)
[2017-04-24] MEDS: POTASSIUM CHLORIDE (SR) 10 MEQ TAB PO SCH ×2 (08:30→17:19)
[2017-04-24] MEDS: METHYLPREDNISOLONE 40 MG INJ IV SCH (08:31)
[2017-04-24] MEDS: ESCITALOPRAM 10 MG TAB PO SCH (08:31)
--- NOTE | 2017-04-24 09:33 | PN ---
DATE: 04/24/2017 CARDIOLOGY FOLLOWUP SUBJECTIVE: He is off of monitor. No new cardiac event. No syncope or presyncope. MEDICATIONS: Reviewed. PHYSICAL EXAMINATION: VITAL SIGNS: Temperature 98, heart rate of 62, blood pressure 104/70, respiration rate of 16. HEENT: Normocephalic, atraumatic: Cachectic gentleman. CARDIOVASCULAR: Bradycardic. PULMONARY: With no wheezes. GASTROINTESTINAL: Soft, rebound or guarding. EXTREMITIES: No significant edema. NEUROLOGIC: Awake and alert. ASSESSMENT AND PLAN: 1. Sick sinus syndrome with marked sinus bradycardia, currently appears to be asymptomatic. 2. History of esophageal carcinoma. 3. History of chronic primary sclerotic cholangitis. 4. Crohn disease. 5. Malnutrition. 6. Anemia. 7. Depression. RECOMMENDATIONS: We will continue with the current cardiac care. beta blockers. Electrolyte s will be corrected as needed. Follow up with surgery and GI's recommendation. Off of telemetry no w. Dictated By: POOJA CHAVEZ MD AV/JASMYNE Conf#: [id number] DID#: [id number] CC: ORION GUILLEN;*EndCC*
[2017-04-24 10:21] LABS: ADD SCAN DIFF NO
[2017-04-24 10:30] LABS: BASOPHILS % 0.1 % (0.0-2.0); EOSINOPHILS # 0.1 10^3/ul (0.0-0.5); EOSINOPHILS % 1.9 % (0.0-7.0); HEMATOCRIT 33.6 % (42.0-52.0); HEMOGLOBIN 10.7 g/dl (14.0-18.0); LYMPHOCYTES # 0.9 10^3/ul (0.8-2.9); LYMPHOCYTES % 13.4 % (15.0-51.0); MEAN CORPUSCULAR HEMOGLOBIN 30.7 pg (29.0-33.0); MEAN CORPUSCULAR HGB CONC 31.8 g/dl (32.0-37.0); MEAN CORPUSCULAR VOLUME 96.6 fl (82.0-101.0); MEAN PLATELET VOLUME 9.2 fl (7.4-10.4); MONOCYTE # 0.6 10^3/ul (0.3-0.9); MONOCYTES % 8.3 % (0.0-11.0); NEUTROPHIL # 5.3 10^3/ul (1.6-7.5); PLATELET COUNT 419 10^3/UL (140-415); RED BLOOD COUNT 3.48 10^6/ul (4.70-6.10)
[2017-04-24 11:41] VITALS: BP 102/64; RESP 16
--- NOTE | 2017-04-24 12:27 | PN ---
Date/Time of Note Date/Time of Note DATE: 04/24/17 TIME: 12:24 Assessment/Plan VTE Prophylaxis VTE Prophylaxis Intervention: SCD's Lines/Catheters IV Catheter Type (from Nrs): Peripheral IV Urinary Cath still in place: No Assessment/Plan Chief Complaint/Hosp Course A/P: 61 M with: 1. Metastatic cholangiocarcinoma with metastasis to the liver and lymph nodes. Status post cholecystectomy and excision of hepatic common bile duct with Isabell -en-Y hepaticojejunostomy on 01/24/2017. The patient being followed by oncology and hepatobiliary team. Poor prognosis. Biliary drains in place, one is capped. - continue current care including pain control - off JOB COACH pump now - f/u heme/Onc and surgery rec's - pt likely would benefit from SNF placement and close Heme/onc and surgery follow up, as mass may be amenable to further tx in outpt setting (per discussion with surgery team) - CM actively working on this. 2. History of Crohn's disease status post a proctocolectomy with J-pouch creation in 2005 - monitor 3. History of chronic primary sclerosing cholangitis - monitor 4. Sinus bradycardia, asymptomatic. Cardiology following - HR improved - monitor 5. Chronic back pain. Lumbar spine CT showing osteopenia with mild L2 compression fracture. Continue on analgesics, including dilaudid PO prn for now 6. Protein calorie malnutrition. Severe. Dietary supplements. 7. Normocytic normochromic anemia, most probably anemia of chronic disease. Monitor H and H closely. 8. Depression. Continue Lexapro. 9. Status post placement of left biliary drain on 04/09/2017. Continue management as per surgery. 10. Status post placement of a right biliary drain on 03/24/2017, management as per surgery. On antibiotics as per infectious disease. 11. Fluid, electrolytes and nutrition. Soft diet. 11. DVT prophylaxis with bilateral sequential compression devices. 12. Gastrointestinal prophylaxis. Proton pump inhibitors intervention planned. Plan. Continue current management. Plan [facility]. check BMP today as well. Problems: Subjective 24 Hr Interval Summary Free Text/Dictation Pt off of JOB COACH pump now. Exam/Review of Systems Vital Signs Vitals Vital Signs Date Time Temp Pulse Resp B/P Pulse Ox O2 Delivery O2 Flow Rate FiO2 04/24/17 11:41 98.2 63 16 102/64 100 04/23/17 01:43 21 04/22/17 20:28 Room Air Intake and Output 04/23/17 04/23/17 04/24/17 15:00 23:00 07:00 Intake Total 720 ml 540 ml Output Total 70 ml 35 ml Balance 650 ml 505 ml Exam GENERAL: frail-looking male patient lying in bed in no apparent distress, alert. HEENT: Head normocephalic and atraumatic. Eyes: Anicteric sclerae. Conjunctivae clear. ENT: Nasal septum is midline. Oral mucosa is dry. NECK: Supple. No JVD noticed. RESPIRATORY: Bilaterally clear to auscultation. No adventitious breath sounds. No use of accessory muscles of respiration. CARDIAC: Regular rate and rhythm with a systolic murmur. ABDOMEN: Soft and nondistended. Incisions clean, dry and intact. biliary drains in place EXTREMITIES: No cyanosis, no clubbing, no edema. NEUROLOGIC: The patient is awake, alert and oriented. Cranial nerves are grossly intact. Results Result Diagram: 04/24/17 0942 04/22/17 1002 Results 24 hrs Laboratory Tests Test 04/24/17 09:42 White Blood Count 7.0 Red Blood Count 3.48 L Hemoglobin 10.7 L Hematocrit 33.6 L Mean Corpuscular Volume 96.6 Mean Corpuscular Hemoglobin 30.7 Mean Corpuscular Hemoglobin Concent 31.8 L Red Cell Distribution Width 20.0 H Platelet Count 419 H Mean Platelet Volume 9.2 Neutrophils % 76.0 Lymphocytes % 13.4 L Monocytes % 8.3 Eosinophils % 1.9 Basophils % 0.1 Nucleated Red Blood Cells % 0.0 Neutrophils # 5.3 Lymphocytes # 0.9 Monocytes # 0.6 Eosinophils # 0.1 Basophils # 0.0 Nucleated Red Blood Cells # 0.0 Medications Medications Current Medications Ondansetron HCl (Zofran Inj) 4 mg Q6H PRN IV NAUSEA AND/OR VOMITING; Start at 19:30 Acetaminophen (Tylenol Tab) 650 mg Q6H PRN PO PAIN LEVEL 1-3 OR FEVER; Start at 19:30 Docusate Sodium (Colace) 100 mg Q12H PRN PO CONSTIPATION; Start 03/30/17 at 19: 30 Magnesium Hydroxide (Milk Of Mag) 30 ml DAILY PRN PO CONSTIPATION; Start at 19:30 Sodium Biphosphate/ Sodium Phosphate (Fleet Enema) 133 ml DAILY PRN [place] CONSTIPATION; Start 03/30/17 at 19:30 Pantoprazole (Protonix Iv) 40 mg DAILY@06 IV Last administered on 04/24/17 05: 26; Admin Dose 40 MG; Start 03/31/17 at 06:00 Hydralazine HCl (Apresoline) 10 mg Q6H PRN IV ELEVATED BLOOD PRESSURE; Start at 19:30 Nitroglycerin (Nitroglycerin (Sl Tab) 0.4 Mg) 1 tab Q5M PRN SL ANGINA; Start at 19:30 Escitalopram Oxalate (Lexapro) 20 mg DAILY PO Last administered on 04/24/17 08: 31; Admin Dose 20 MG; Start 04/11/17 at 09:00 Nystatin (Nystatin Susp) 5 ml QID PO Last administered on 04/24/17 08:30; Admin Dose 5 ML; Start 04/13/17 at 18:00 Potassium Chloride (Klor-Con 10) 10 meq BID@08,18 PO Last administered on 08:30; Admin Dose 10 MEQ; Start 04/17/17 at 08:00 Metronidazole (Flagyl) 500 mg Q8H PO Last administered on 04/24/17 08:30; Admin Dose 500 MG; Start 04/22/17 at 08:00 Levofloxacin (Levaquin) 500 mg DAILY@06 PO Last administered on 04/24/17 05:26 ; Admin Dose 500 MG; Start 04/22/17 at 09:00 Lidocaine (Lidocaine 5% Oint) 1 applic QID PRN TOP PAIN Last administered on 12:16; Admin Dose 1 APPLIC; Start 04/22/17 at 09:30 Hydromorphone HCl (Dilaudid) 2 mg Q6H PRN PO PAIN; Start 04/24/17 at 11:00 ORION GUILLEN Apr 24, 2017 12:27
--- NOTE | 2017-04-24 12:52 | CONS ---
Date/Time of Note Date/Time of Note DATE: 04/24/17 TIME: 12:50 Assessment/Plan Assessment/Plan Chief Complaint/Hosp Course SUBJECTIVE: No acute events, no fevers, urine is more dark and is concerned for pt to be dehydrated ANTIMICROBIALS: Levaquin, Flagyl MICROBIOLOGY: Intra-abdominal fluid culture growing Klebsiella pneumoniae and Bacteroides fragilis. INDWELLINGS: The patient has two intra-abdominal drainages. PHYSICAL EXAMINATION: GENERAL: This is a well-developed, elderly, cachectic man who is alert, in no distress. HEENT: Head atraumatic, normocephalic. Sclerae anicteric. Buccal mucosa dry. NECK: Supple, trachea midline. CHEST: Rise symmetrical. Breath sounds clear, diminished to bases. HEART: S1, S2. ABDOMEN: Soft, bowel tones present. EXTREMITIES: Without cyanosis. ASSESSMENT: 1. Systemic inflammatory response syndrome with persistent leukocytosis, secondary to intra-abdominal process, possibly also steroid induced. 2. Biliary obstruction status post fluoroscopic-guided biliary drainage catheter placement with exchange on 04/12/2017. 3. Metastatic cholangiocarcinoma to lymph nodes and liver. 5. History of primary sclerosing cholangitis since 2008. 6. Cachexia. PLAN: Clinically unchanged, continue abx, pending placement ?IVF DW Problems: Consultation Date/Type/Reason Admit Date/Time March 30, 2017 at 18:53 Initial Consult Date 03/31/17 Type of Consultation: ID Referring Provider: HUMZA JAIME MD Exam/Review of Systems Vital Signs Vitals Vital Signs Date Time Temp Pulse Resp B/P Pulse Ox O2 Delivery O2 Flow Rate FiO2 04/24/17 11:41 98.2 63 16 102/64 100 04/23/17 01:43 21 04/22/17 20:28 Room Air Intake and Output 04/23/17 04/23/17 04/24/17 15:00 23:00 07:00 Intake Total 720 ml 540 ml Output Total 70 ml 35 ml Balance 650 ml 505 ml Results Result Diagram: 04/24/17 0942 04/22/17 1002 Results 24 hrs Laboratory Tests Test 04/24/17 09:42 White Blood Count 7.0 Red Blood Count 3.48 L Hemoglobin 10.7 L Hematocrit 33.6 L Mean Corpuscular Volume 96.6 Mean Corpuscular Hemoglobin 30.7 Mean Corpuscular Hemoglobin Concent 31.8 L Red Cell Distribution Width 20.0 H Platelet Count 419 H Mean Platelet Volume 9.2 Neutrophils % 76.0 Lymphocytes % 13.4 L Monocytes % 8.3 Eosinophils % 1.9 Basophils % 0.1 Nucleated Red Blood Cells % 0.0 Neutrophils # 5.3 Lymphocytes # 0.9 Monocytes # 0.6 Eosinophils # 0.1 Basophils # 0.0 Nucleated Red Blood Cells # 0.0 Medications Medications Current Medications Ondansetron HCl (Zofran Inj) 4 mg Q6H PRN IV NAUSEA AND/OR VOMITING; Start at 19:30 Acetaminophen (Tylenol Tab) 650 mg Q6H PRN PO PAIN LEVEL 1-3 OR FEVER; Start at 19:30 Docusate Sodium (Colace) 100 mg Q12H PRN PO CONSTIPATION; Start 03/30/17 at 19: 30 Magnesium Hydroxide (Milk Of Mag) 30 ml DAILY PRN PO CONSTIPATION; Start at 19:30 Sodium Biphosphate/ Sodium Phosphate (Fleet Enema) 133 ml DAILY PRN [place] CONSTIPATION; Start 03/30/17 at 19:30 Pantoprazole (Protonix Iv) 40 mg DAILY@06 IV Last administered on 04/24/17 05: 26; Admin Dose 40 MG; Start 03/31/17 at 06:00 Hydralazine HCl (Apresoline) 10 mg Q6H PRN IV ELEVATED BLOOD PRESSURE; Start at 19:30 Nitroglycerin (Nitroglycerin (Sl Tab) 0.4 Mg) 1 tab Q5M PRN SL ANGINA; Start at 19:30 Escitalopram Oxalate (Lexapro) 20 mg DAILY PO Last administered on 04/24/17 08: 31; Admin Dose 20 MG; Start 04/11/17 at 09:00 Nystatin (Nystatin Susp) 5 ml QID PO Last administered on 04/24/17 08:30; Admin Dose 5 ML; Start 04/13/17 at 18:00 Potassium Chloride (Klor-Con 10) 10 meq BID@08,18 PO Last administered on 08:30; Admin Dose 10 MEQ; Start 04/17/17 at 08:00 Metronidazole (Flagyl) 500 mg Q8H PO Last administered on 04/24/17 08:30; Admin Dose 500 MG; Start 04/22/17 at 08:00 Levofloxacin (Levaquin) 500 mg DAILY@06 PO Last administered on 04/24/17 05:26 ; Admin Dose 500 MG; Start 04/22/17 at 09:00 Lidocaine (Lidocaine 5% Oint) 1 applic QID PRN TOP PAIN Last administered on 12:16; Admin Dose 1 APPLIC; Start 04/22/17 at 09:30 Hydromorphone HCl (Dilaudid) 2 mg Q6H PRN PO PAIN; Start 04/24/17 at 11:00 DEBRA GILL NP Apr 24, 2017 12:52
[2017-04-24 16:12] VITALS: BP 100/68; RESP 18
[2017-04-24 16:13] LABS: CALCIUM 9.1 mg/dl (8.4-10.2); CREATININE 0.54 mg/dl (0.61-1.24); POTASSIUM 4.5 mmol/L (3.5-5.1)
[2017-04-24 16:40] VITALS: BP 97/55; PULSE 61; RESP 18
[2017-04-24] MEDS: HYDROmorphONE 2 MG TAB PO PRN ×2 (17:19→23:22)
--- NOTE | 2017-04-24 20:08 | PN ---
Date/Time of Note Date/Time of Note DATE: 04/24/17 TIME: 11:45 Assessment/Plan Lines/Catheters IV Catheter Type (from [facility]): Peripheral IV Andrews in Place (from [facility]): No Assessment/Plan Assessment/Plan [facility] Progress Note Date of Service: 04/24/17 Today's Impression & Plan: Overall stable. No new issues. Clinically tolerating L biliary drain being capped. Rise in LFT's noted and will wait for tomorrow's labs prior to further intervention (? need for tube checks). Updated patient and his sister and answered all of their questions. With above assessment, I've recommended the following for today: 1. Continued aggressive medical management 2. Aggressive nutritional support with increased oral intake. 3. Labs in am including LFT's 4. R biliary drain to gravity drainage 5. L biliary drain to remain capped 6. Flush both biliary drains with 10 cc NS BID (very important to be taught to patient, family and to the next level of care nurses) 7. Discontinue antimicrobials 8. Assisted activity with education on how to deal with his back 9. F/u on culture results and do more cultures if indicated clinically (still at risk for ongoing cholangitis, UTI, pneumonia, etc.) 10. Ongoing plans for SNF placement Thank you again for your great care of this very pleasant patient and wonderful family. If there are any questions, please feel free to call me at [phone]. TOTAL VISIT TIME: 20 minutes of which more than half was spent in [id number] discussion with the patient, possibly including family, as well as coordination of care between multiple physicians and providers. Disclaimer: Inadvertent spelling or grammatical errors are likely due to EHR/ dictation software use and do not reflect on the overall quality of patient care. Updated clinical summary: A very pleasant 61-year-old gentleman with significant past medical history including ulcerative colitis status post total proctocolectomy and ileoanal pouch as well as a number of other medical issues who was diagnosed with cholangiocarcinoma and underwent a radical bile duct resection that included extrahepatic bile duct and gallbladder at [facility], 2016, with final diagnosis of cholangiocarcinoma with 1/8 lymph node positive disease as well as low-grade dysplasia and carcinoma in situ at the proximal margin. The patient was readmitted to [facility] after a 2 month hospital stay at [facility] with increasing weakness, jaundice, and diffuse body pain. S/p perc drainage of right biliary system 04/03/17. : s/p placement of left biliary drain which traverses patient's anastomosis on that side. Right system has a tight anastomosis that could not be traversed. R biliary drain upsized 04/12/17. L biliary drain capped . COMORBIDITIES: 1. History of ulcerative colitis status post total proctocolectomy and ileoanal pouch. 2. Diagnosis of primary sclerosing cholangitis since 2008 being cared for at various institutions such as [facility] and by various physicians with involvement of Dr. Krystian Adkins for hepatology. 3. History of hospitalization at [facility] for bile duct obstruction from mid December to early March with bile duct excision with cholecystectomy with removal of extrahepatic bile duct and Isabell-en-Y hepaticojejunostomy on 07/2017 with the above-mentioned pathology. 4. Chronic back pain, mainly lower, for the last 5 to 6 years. 5. Significant weight loss of more than 20 to 30 pounds over the last 6 months. 6. No history of lymphoma (note that this was reported erroneously in the patient's chart. The patient does not report any history of lymphoma in the past and that is also corroborated by the patient's family). 7. Status post multiple ERCPs and stenting in the past since 2005. 8. Elevated alpha fetoprotein 1.8 in 12/2016. 9. Elevated CA19-9 of 272.9 in 12/2016. 10. Normal CEA at 1.6 on 01/14/2017. 11. Status post sigmoidoscopy, 01/16/2017, showing moderate pouchitis and negative for dysplasia or malignancy. 12. S/p perc drainage of right biliary system 04/03/17. 13. 04/09/17: s/p placement of left biliary drain which traverses patient's anastomosis on that side. Right system has a tight anastomosis that could not be traversed. 14. Compression fracture 04/10/17 Subjective: No major events or complaints; no major abd pain and under control with medications; no n/v/d; no sob or cp; + flatus; + BM and normal for him; minimal activity. No further pain with palpation in the RLQ. Objective: Vitals: See below Exam: GENERAL: On exam, the patient was sitting on the commode and appeared to be comfortable and in no acute distress. ABDOMEN: Soft, nontender, and nondistended. Incisions are clean, dry and intact without any evidence of erythema, edema, discharge, or hernia. R biliary drains bilious. L biliary drain capped. SKIN: Skin appears to be pink and feels warm to touch. NEUROLOGIC: Patient was awake, alert, and followed commands appropriately. Exam/Review of Systems Vital Signs Vitals Vital Signs Date Time Temp Pulse Resp B/P Pulse Ox O2 Delivery O2 Flow Rate FiO2 04/24/17 16:12 98.0 63 18 100/68 100 04/23/17 01:43 21 04/22/17 20:28 Room Air Intake and Output 04/23/17 04/23/17 04/24/17 15:00 23:00 07:00 Intake Total 720 ml 540 ml Output Total 70 ml 35 ml Balance 650 ml 505 ml Results Result Diagram: 04/24/17 0942 04/24/17 1520 ZOE GOYAL M.D. Apr 24, 2017 20:08
[2017-04-24 20:09] VITALS: BP 135/85; RESP 18
--- NOTE | 2017-04-24 21:53 | CONS ---
Date/Time of Note Date/Time of Note DATE: 04/24/17 TIME: 21:53 Assessment/Plan Assessment/Plan Chief Complaint/Hosp Course 1. 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 postop , NOW WITH Metastatic dis in the liver lobular area of elevated T2 signal is seen in the central liver worrisome for a mass possibly cholangiocarcinoma and this causes prominent intrahepatic biliary ductal dilatation of both the left and right intrahepatic biliary ducts with central loss of signal at the area of the mass. CT and MRI- REVIEWED TUMOR MARKERS : ca 19-9 1420 , c/w to tumor progression hepatobiliary consult noted- D/W D LEÓN POST drain placement in the right lobe of the liver- c/w abscess POST stenting across the anastomosis with IR. PTBD LFT - noted 2. Obstructive jaundice. Stable, ro stricture/recurrent tumor. MRCP/GI eval, hepatobiliary surgery consult- REVIEWED surgical f-up Dr Anderson noted POST biliary drainage by interventional radiology 3. Chronic Crohn's disease status post total proctocolectomy with J-pouch creation 2005. 4. Chronic primary sclerosing cholangitis w cholangiocarcinoma. Needs advanced care planning evaluated. Poor prognosis. Performance status questionable at this time for chemotherapy & bilirubin needs some improvement. 5. Malnutrition; oral feeds/Megace vs TPN 6. Active pouchitis? 7. Postop day 16 bd excision w cholecystectomy, excision of extrahepatic cbd and Isabell-en-Y hepaticojejunostomy. 8. Failure to thrive, may need snf 9. Anemia- WILL TRANSFUSE PRBC PRN 10. Reactive thrombocytosis 11. Dyslipidemia. POOR PS agree with transfer to SNF Hospice consult now on hold. DC PLANNING IN PROCESS Problems: Consultation Date/Type/Reason Admit Date/Time March 30, 2017 at 18:53 Initial Consult Date 03/31/17 [facility] Referring Provider: HUMZA JAIME MD 24 HR Interval Summary Free Text/Dictation Pt off of [employer] pump now. weak but comfortable on current regimen Exam/Review of Systems Vital Signs Vitals Vital Signs Date Time Temp Pulse Resp B/P Pulse Ox O2 Delivery O2 Flow Rate FiO2 04/24/17 20:09 98.6 55 18 135/85 99 04/24/17 16:40 Room Air 04/23/17 01:43 21 Intake and Output 04/23/17 04/23/17 04/24/17 15:00 23:00 07:00 Intake Total 720 ml 540 ml Output Total 70 ml 35 ml Balance 650 ml 505 ml Exam Exam GENERAL: frail-looking male patient lying in bed in no apparent distress, alert. HEENT: Head normocephalic and atraumatic. Eyes: Anicteric sclerae. Conjunctivae clear. ENT: Nasal septum is midline. Oral mucosa is dry. NECK: Supple. No JVD noticed. RESPIRATORY: Bilaterally clear to auscultation. No adventitious breath sounds. No use of accessory muscles of respiration. CARDIAC: Regular rate and rhythm with a systolic murmur. ABDOMEN: Soft and nondistended. Incisions clean, dry and intact. biliary drains in place EXTREMITIES: No cyanosis, no clubbing, no edema. NEUROLOGIC: The patient is awake, alert and oriented. Cranial nerves are grossly intact. Results Result Diagram: 04/24/17 0942 04/24/17 1520 Results 24 hrs Laboratory Tests Test 04/24/17 09:42 04/24/17 15:20 White Blood Count 7.0 Red Blood Count 3.48 L Hemoglobin 10.7 L Hematocrit 33.6 L Mean Corpuscular Volume 96.6 Mean Corpuscular Hemoglobin 30.7 Mean Corpuscular Hemoglobin Concent 31.8 L Red Cell Distribution Width 20.0 H Platelet Count 419 H Mean Platelet Volume 9.2 Neutrophils % 76.0 Lymphocytes % 13.4 L Monocytes % 8.3 Eosinophils % 1.9 Basophils % 0.1 Nucleated Red Blood Cells % 0.0 Neutrophils # 5.3 Lymphocytes # 0.9 Monocytes # 0.6 Eosinophils # 0.1 Basophils # 0.0 Nucleated Red Blood Cells # 0.0 Sodium Level 137 Potassium Level 4.5 Chloride Level 101 Carbon Dioxide Level 30 Anion Gap 11 Blood Urea Nitrogen 14 Creatinine 0.54 L Glucose Level 122 Calcium Level 9.1 Medications Medications Current Medications Ondansetron HCl (Zofran Inj) 4 mg Q6H PRN IV NAUSEA AND/OR VOMITING; Start at 19:30 Acetaminophen (Tylenol Tab) 650 mg Q6H PRN PO PAIN LEVEL 1-3 OR FEVER; Start at 19:30 Docusate Sodium (Colace) 100 mg Q12H PRN PO CONSTIPATION; Start 03/30/17 at 19: 30 Magnesium Hydroxide (Milk Of Mag) 30 ml DAILY PRN PO CONSTIPATION; Start at 19:30 Sodium Biphosphate/ Sodium Phosphate (Fleet Enema) 133 ml DAILY PRN [place] CONSTIPATION; Start 03/30/17 at 19:30 Pantoprazole (Protonix Iv) 40 mg DAILY@06 IV Last administered on 04/24/17 05: 26; Admin Dose 40 MG; Start 03/31/17 at 06:00 Hydralazine HCl (Apresoline) 10 mg Q6H PRN IV ELEVATED BLOOD PRESSURE; Start at 19:30 Nitroglycerin (Nitroglycerin (Sl Tab) 0.4 Mg) 1 tab Q5M PRN SL ANGINA; Start at 19:30 Escitalopram Oxalate (Lexapro) 20 mg DAILY PO Last administered on 04/24/17 08: 31; Admin Dose 20 MG; Start 04/11/17 at 09:00 Nystatin (Nystatin Susp) 5 ml QID PO Last administered on 04/24/17 17:20; Admin Dose 5 ML; Start 04/13/17 at 18:00 Potassium Chloride (Klor-Con 10) 10 meq BID@08,18 PO Last administered on 17:19; Admin Dose 10 MEQ; Start 04/17/17 at 08:00 Metronidazole (Flagyl) 500 mg Q8H PO Last administered on 04/24/17 17:20; Admin Dose 500 MG; Start 04/22/17 at 08:00 Levofloxacin (Levaquin) 500 mg DAILY@06 PO Last administered on 04/24/17 05:26 ; Admin Dose 500 MG; Start 04/22/17 at 09:00 Lidocaine (Lidocaine 5% Oint) 1 applic QID PRN TOP PAIN Last administered on 12:16; Admin Dose 1 APPLIC; Start 04/22/17 at 09:30 Hydromorphone HCl (Dilaudid) 2 mg Q6H PRN PO PAIN Last administered on 17:19; Admin Dose 2 MG; Start 04/24/17 at 11:00 KIN ESTEBAN MD Apr 24, 2017 21:53
[2017-04-25 05:12] LABS: ADD SCAN DIFF NO
[2017-04-25 05:16] LABS: BASOPHILS % 0.2 % (0.0-2.0); EOSINOPHILS # 0.2 10^3/ul (0.0-0.5); EOSINOPHILS % 1.9 % (0.0-7.0); HEMATOCRIT 32.2 % (42.0-52.0); HEMOGLOBIN 10.1 g/dl (14.0-18.0); LYMPHOCYTES # 1.9 10^3/ul (0.8-2.9); LYMPHOCYTES % 23.4 % (15.0-51.0); MEAN CORPUSCULAR HEMOGLOBIN 30.2 pg (29.0-33.0); MEAN CORPUSCULAR HGB CONC 31.4 g/dl (32.0-37.0); MEAN CORPUSCULAR VOLUME 96.4 fl (82.0-101.0); MEAN PLATELET VOLUME 9.2 fl (7.4-10.4); MONOCYTE # 0.8 10^3/ul (0.3-0.9); MONOCYTES % 9.9 % (0.0-11.0); NEUTROPHIL # 5.3 10^3/ul (1.6-7.5); NEUTROPHILS % 64.2 % (39.0-77.0); PLATELET COUNT 434 10^3/UL (140-415); RED BLOOD COUNT 3.34 10^6/ul (4.70-6.10); RED CELL DISTRIBUTION WIDTH 20.1 % (11.5-14.5); WHITE BLOOD COUNT 8.2 10^3/ul (4.8-10.8)
[2017-04-25 05:39] LABS: CALCIUM 9.3 mg/dl (8.4-10.2); CREATININE 0.58 mg/dl (0.61-1.24); POTASSIUM 4.1 mmol/L (3.5-5.1)
[2017-04-25] MEDS: PANTOPRAZOLE 40 MG INJ IV SCH (05:39)
[2017-04-25] MEDS: LEVOFLOXACIN 500 MG TAB PO SCH (05:39)
[2017-04-25] MEDS: HYDROmorphONE 2 MG TAB PO PRN ×3 (05:40→21:18)
[2017-04-25 08:07] VITALS: BP 109/70; RESP 16
[2017-04-25] MEDS: ESCITALOPRAM 10 MG TAB PO SCH (09:04)
[2017-04-25] MEDS: NYSTATIN SUSP 5 ML CUP PO SCH ×4 (09:04→21:17)
[2017-04-25] MEDS: POTASSIUM CHLORIDE (SR) 10 MEQ TAB PO SCH ×2 (09:05→17:18)
[2017-04-25] MEDS: metroNIDAZOLE 500 MG TAB PO SCH ×2 (09:05→17:18)
[2017-04-25 09:31] LABS: ALBUMIN 3.8 g/dl (3.3-4.9); BILIRUBIN,DIRECT 1.4 mg/dl (0.00-0.20); BILIRUBIN,INDIRECT 1.1 mg/dl (0-1.1); BILIRUBIN,TOTAL 2.5 mg/dl (0.2-1.3); TOTAL PROTEIN 7.2 g/dl (6.1-8.1)
--- NOTE | 2017-04-25 14:58 | PN ---
Date/Time of Note Date/Time of Note DATE: 04/25/17 TIME: 14:55 Assessment/Plan VTE Prophylaxis VTE Prophylaxis Intervention: SCD's Lines/Catheters IV Catheter Type (from Nrs): Saline Lock Urinary Cath still in place: No Assessment/Plan Chief Complaint/Hosp Course A/P: 61 M with: 1. Metastatic cholangiocarcinoma with metastasis to the liver and lymph nodes. Status post cholecystectomy and excision of hepatic common bile duct with Iasbell -en-Y hepaticojejunostomy on 01/24/2017. The patient being followed by oncology and hepatobiliary team. Poor prognosis. Biliary drains in place, one is capped. 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 2. History of Crohn's disease status post a proctocolectomy with J-pouch creation in 2005 - monitor 3. History of chronic primary sclerosing cholangitis - monitor 4. Sinus bradycardia, asymptomatic. Cardiology following - HR improved - monitor 5. Chronic back pain. Lumbar spine CT showing osteopenia with mild L2 compression fracture. Continue on analgesics, including dilaudid PO prn for now 6. Protein calorie malnutrition. Severe. Dietary supplements. 7. Normocytic normochromic anemia, most probably anemia of chronic disease. Monitor H and H closely. 8. Depression. Continue Lexapro. 9. Status post placement of left biliary drain on 04/09/2017. Continue management as per surgery. 10. Status post placement of a right biliary drain on 03/24/2017, management as per surgery. On antibiotics as per infectious disease. 11. Fluid, electrolytes and nutrition. Soft diet. 11. DVT prophylaxis with bilateral sequential compression devices. 12. Gastrointestinal prophylaxis. Proton pump inhibitors intervention planned. Plan. Continue current management. Plan is to [facility] the patient to [facility] when [facility]. Problems: Subjective 24 Hr Interval Summary Free Text/Dictation Pt has less pain smpts, no acute events overnight. Wants to try and ambulate with nurse in room. Exam/Review of Systems Vital Signs Vitals Vital Signs Date Time Temp Pulse Resp B/P Pulse Ox O2 Delivery O2 Flow Rate FiO2 04/25/17 08:07 98.2 62 16 109/70 99 04/24/17 16:40 Room Air 04/23/17 01:43 21 Intake and Output 04/24/17 04/24/17 04/25/17 15:00 23:00 07:00 Intake Total 740 ml 500 ml Output Total 0 ml 100 ml 100 ml Balance 0 ml 640 ml 400 ml Exam GENERAL: frail-looking male patient lying in bed in no apparent distress, alert. HEENT: Head normocephalic and atraumatic. Eyes: Anicteric sclerae. Conjunctivae clear. ENT: Nasal septum is midline. Oral mucosa is dry. NECK: Supple. No JVD noticed. RESPIRATORY: Bilaterally clear to auscultation. No adventitious breath sounds. No use of accessory muscles of respiration. CARDIAC: Regular rate and rhythm with a systolic murmur. ABDOMEN: Soft and nondistended. Incisions clean, dry and intact. biliary drains in place EXTREMITIES: No cyanosis, no clubbing, no edema. NEUROLOGIC: The patient is awake, alert and oriented. Cranial nerves are grossly intact. Results Result Diagram: 04/25/17 0425 04/25/17 0425 Results 24 hrs Laboratory Tests Test 04/24/17 15:20 04/25/17 04:25 Sodium Level 137 140 Potassium Level 4.5 4.1 Chloride Level 101 104 Carbon Dioxide Level 30 28 Anion Gap 11 12 Blood Urea Nitrogen 14 16 Creatinine 0.54 L 0.58 L Glucose Level 122 82 # Calcium Level 9.1 9.3 White Blood Count 8.2 Red Blood Count 3.34 L Hemoglobin 10.1 L Hematocrit 32.2 L Mean Corpuscular Volume 96.4 Mean Corpuscular Hemoglobin 30.2 Mean Corpuscular Hemoglobin Concent 31.4 L Red Cell Distribution Width 20.1 H Platelet Count 434 H Mean Platelet Volume 9.2 Neutrophils % 64.2 Lymphocytes % 23.4 Monocytes % 9.9 Eosinophils % 1.9 Basophils % 0.2 Nucleated Red Blood Cells % 0.0 Neutrophils # 5.3 Lymphocytes # 1.9 Monocytes # 0.8 Eosinophils # 0.2 Basophils # 0.0 Nucleated Red Blood Cells # 0.0 Total Bilirubin 2.5 H Direct Bilirubin 1.40 #H Indirect Bilirubin 1.1 Aspartate Amino Transf (AST/SGOT) 83 H Alanine Aminotransferase (ALT/SGPT) 69 Alkaline Phosphatase 329 H Total Protein 7.2 Albumin 3.8 Medications Medications Current Medications Ondansetron HCl (Zofran Inj) 4 mg Q6H PRN IV NAUSEA AND/OR VOMITING; Start at 19:30 Acetaminophen (Tylenol Tab) 650 mg Q6H PRN PO PAIN LEVEL 1-3 OR FEVER; Start at 19:30 Docusate Sodium (Colace) 100 mg Q12H PRN PO CONSTIPATION; Start 03/30/17 at 19: 30 Magnesium Hydroxide (Milk Of Mag) 30 ml DAILY PRN PO CONSTIPATION; Start at 19:30 Sodium Biphosphate/ Sodium Phosphate (Fleet Enema) 133 ml DAILY PRN [place] CONSTIPATION; Start 03/30/17 at 19:30 Pantoprazole (Protonix Iv) 40 mg DAILY@06 IV Last administered on 04/25/17 05: 39; Admin Dose 40 MG; Start 03/31/17 at 06:00 Hydralazine HCl (Apresoline) 10 mg Q6H PRN IV ELEVATED BLOOD PRESSURE; Start at 19:30 Nitroglycerin (Nitroglycerin (Sl Tab) 0.4 Mg) 1 tab Q5M PRN SL ANGINA; Start at 19:30 Escitalopram Oxalate (Lexapro) 20 mg DAILY PO Last administered on 04/25/17 09: 04; Admin Dose 20 MG; Start 04/11/17 at 09:00 Nystatin (Nystatin Susp) 5 ml QID PO Last administered on 04/25/17 12:54; Admin Dose 5 ML; Start 04/13/17 at 18:00 Potassium Chloride (Klor-Con 10) 10 meq BID@08,18 PO Last administered on 09:05; Admin Dose 10 MEQ; Start 04/17/17 at 08:00 Metronidazole (Flagyl) 500 mg Q8H PO Last administered on 04/25/17 09:05; Admin Dose 500 MG; Start 04/22/17 at 08:00 Levofloxacin (Levaquin) 500 mg DAILY@06 PO Last administered on 04/25/17 05:39 ; Admin Dose 500 MG; Start 04/22/17 at 09:00 Lidocaine (Lidocaine 5% Oint) 1 applic QID PRN TOP PAIN Last administered on 12:16; Admin Dose 1 APPLIC; Start 04/22/17 at 09:30 Hydromorphone HCl (Dilaudid) 2 mg Q6H PRN PO PAIN Last administered on 12:54; Admin Dose 2 MG; Start 04/24/17 at 11:00 ORION GUILLEN Apr 25, 2017 14:58
--- NOTE | 2017-04-25 16:28 | CONS ---
Date/Time of Note Date/Time of Note DATE: 04/25/17 TIME: 16:27 Assessment/Plan Assessment/Plan Chief Complaint/Hosp Course SUBJECTIVE: No acute events, no fevers, looks comfortable ANTIMICROBIALS: Levaquin, Flagyl MICROBIOLOGY: Intra-abdominal fluid culture growing Klebsiella pneumoniae and Bacteroides fragilis. INDWELLINGS: The patient has two intra-abdominal drainages. PHYSICAL EXAMINATION: GENERAL: This is a well-developed, elderly, cachectic man who is alert, in no distress. HEENT: Head atraumatic, normocephalic. Sclerae anicteric. Buccal mucosa dry. NECK: Supple, trachea midline. CHEST: Rise symmetrical. Breath sounds clear, diminished to bases. HEART: S1, S2. ABDOMEN: Soft, bowel tones present. EXTREMITIES: Without cyanosis. ASSESSMENT: 1. Systemic inflammatory response syndrome with persistent leukocytosis, secondary to intra-abdominal process, possibly also steroid induced. 2. Biliary obstruction status post fluoroscopic-guided biliary drainage catheter placement with exchange on 04/12/2017. 3. Metastatic cholangiocarcinoma to lymph nodes and liver. 5. History of primary sclerosing cholangitis since 2008. 6. Cachexia. PLAN: Clinically unchanged, continue abx, pending placement DW RN Problems: Consultation Date/Type/Reason Admit Date/Time March 30, 2017 at 18:53 Initial Consult Date 03/31/17 Type of Consultation: id Referring Provider: HUMZA JAIME MD Exam/Review of Systems Vital Signs Vitals Vital Signs Date Time Temp Pulse Resp B/P Pulse Ox O2 Delivery O2 Flow Rate FiO2 04/25/17 08:07 98.2 62 16 109/70 99 04/24/17 16:40 Room Air 04/23/17 01:43 21 Intake and Output 04/24/17 04/24/17 04/25/17 15:00 23:00 07:00 Intake Total 740 ml 500 ml Output Total 0 ml 100 ml 100 ml Balance 0 ml 640 ml 400 ml Results Result Diagram: 04/25/17 0425 04/25/17 0425 Results 24 hrs Laboratory Tests Test 04/25/17 04:25 White Blood Count 8.2 Red Blood Count 3.34 L Hemoglobin 10.1 L Hematocrit 32.2 L Mean Corpuscular Volume 96.4 Mean Corpuscular Hemoglobin 30.2 Mean Corpuscular Hemoglobin Concent 31.4 L Red Cell Distribution Width 20.1 H Platelet Count 434 H Mean Platelet Volume 9.2 Neutrophils % 64.2 Lymphocytes % 23.4 Monocytes % 9.9 Eosinophils % 1.9 Basophils % 0.2 Nucleated Red Blood Cells % 0.0 Neutrophils # 5.3 Lymphocytes # 1.9 Monocytes # 0.8 Eosinophils # 0.2 Basophils # 0.0 Nucleated Red Blood Cells # 0.0 Sodium Level 140 Potassium Level 4.1 Chloride Level 104 Carbon Dioxide Level 28 Anion Gap 12 Blood Urea Nitrogen 16 Creatinine 0.58 L Glucose Level 82 # Calcium Level 9.3 Total Bilirubin 2.5 H Direct Bilirubin 1.40 #H Indirect Bilirubin 1.1 Aspartate Amino Transf (AST/SGOT) 83 H Alanine Aminotransferase (ALT/SGPT) 69 Alkaline Phosphatase 329 H Total Protein 7.2 Albumin 3.8 Medications Medications Current Medications Ondansetron HCl (Zofran Inj) 4 mg Q6H PRN IV NAUSEA AND/OR VOMITING; Start at 19:30 Acetaminophen (Tylenol Tab) 650 mg Q6H PRN PO PAIN LEVEL 1-3 OR FEVER; Start at 19:30 Docusate Sodium (Colace) 100 mg Q12H PRN PO CONSTIPATION; Start 03/30/17 at 19: 30 Magnesium Hydroxide (Milk Of Mag) 30 ml DAILY PRN PO CONSTIPATION; Start at 19:30 Sodium Biphosphate/ Sodium Phosphate (Fleet Enema) 133 ml DAILY PRN [place] CONSTIPATION; Start 03/30/17 at 19:30 Pantoprazole (Protonix Iv) 40 mg DAILY@06 IV Last administered on 04/25/17 05: 39; Admin Dose 40 MG; Start 03/31/17 at 06:00 Hydralazine HCl (Apresoline) 10 mg Q6H PRN IV ELEVATED BLOOD PRESSURE; Start at 19:30 Nitroglycerin (Nitroglycerin (Sl Tab) 0.4 Mg) 1 tab Q5M PRN SL ANGINA; Start at 19:30 Escitalopram Oxalate (Lexapro) 20 mg DAILY PO Last administered on 04/25/17 09: 04; Admin Dose 20 MG; Start 04/11/17 at 09:00 Nystatin (Nystatin Susp) 5 ml QID PO Last administered on 04/25/17 12:54; Admin Dose 5 ML; Start 04/13/17 at 18:00 Potassium Chloride (Klor-Con 10) 10 meq BID@08,18 PO Last administered on 09:05; Admin Dose 10 MEQ; Start 04/17/17 at 08:00 Metronidazole (Flagyl) 500 mg Q8H PO Last administered on 04/25/17 09:05; Admin Dose 500 MG; Start 04/22/17 at 08:00 Levofloxacin (Levaquin) 500 mg DAILY@06 PO Last administered on 04/25/17 05:39 ; Admin Dose 500 MG; Start 04/22/17 at 09:00 Lidocaine (Lidocaine 5% Oint) 1 applic QID PRN TOP PAIN Last administered on 12:16; Admin Dose 1 APPLIC; Start 04/22/17 at 09:30 Hydromorphone HCl (Dilaudid) 2 mg Q6H PRN PO PAIN Last administered on 12:54; Admin Dose 2 MG; Start 04/24/17 at 11:00 DEBRA GILL NP Apr 25, 2017 16:28
[2017-04-25 20:09] VITALS: BP 136/90; RESP 18
--- NOTE | 2017-04-25 21:05 | PN ---
Date/Time of Note Date/Time of Note DATE: 04/25/17 TIME: 21:03 Assessment/Plan Lines/Catheters IV Catheter Type (from Nrs): Saline Lock Andrews in Place (from Nrs): No Assessment/Plan Assessment/Plan [facility] Progress Note Date of Service: 04/25/17 Today's Impression & Plan: Overall stable. No new issues. Clinically tolerating L biliary drain being capped. LFT's lower and no further intervention for the drains needed at this time. With above assessment, I've recommended the following for today: 1. Continued aggressive medical management 2. Aggressive nutritional support with increased oral intake. 3. Labs in am including LFT's 4. R biliary drain to gravity drainage 5. L biliary drain to remain capped 6. Flush both biliary drains with 10 cc NS BID (very important to be taught to patient, family and to the next level of care nurses) 7. Discontinue antimicrobials 8. Assisted activity with education on how to deal with his back 9. F/u on culture results and do more cultures if indicated clinically (still at risk for ongoing cholangitis, UTI, pneumonia, etc.) 10. Ongoing plans for SNF placement Thank you again for your great care of this very pleasant patient and wonderful family. If there are any questions, please feel free to call me at [phone]. TOTAL VISIT TIME: 20 minutes of which more than half was spent in [id number] discussion with the patient, possibly including family, as well as coordination of care between multiple physicians and providers. Disclaimer: Inadvertent spelling or grammatical errors are likely due to EHR/ dictation software use and do not reflect on the overall quality of patient care. Updated clinical summary: A very pleasant 61-year-old gentleman with significant past medical history including ulcerative colitis status post total proctocolectomy and ileoanal pouch as well as a number of other medical issues who was diagnosed with cholangiocarcinoma and underwent a radical bile duct resection that included extrahepatic bile duct and gallbladder at [facility], 2016, with final diagnosis of cholangiocarcinoma with 1/8 lymph node positive disease as well as low-grade dysplasia and carcinoma in situ at the proximal margin. The patient was read[facility] to [facility] [place] [facility] [place] weakness, jaundice, and diffuse body pain. S/p perc drainage of right biliary system 04/03/17. : s/p placement of left biliary drain which traverses patient's anastomosis on that side. Right system has a tight anastomosis that could not be traversed. R biliary drain upsized 04/12/17. L biliary drain capped . COMORBIDITIES: 1. History of ulcerative colitis status post total proctocolectomy and ileoanal pouch. 2. Diagnosis of primary sclerosing cholangitis since 2008 being cared for at various institutions such as [facility] and by various physicians with involvement of Dr. Krystian Adkins for hepatology. 3. [place] [facility] [place] mid December to early March with bile duct excision with cholecystectomy with removal of extrahepatic bile duct and Isabell-en-Y hepaticojejunostomy on 07/2017 with the above-mentioned pathology. 4. Chronic back pain, mainly lower, for the last 5 to 6 years. 5. Significant weight loss of more than 20 to 30 pounds over the last 6 months. 6. No history of lymphoma (note that this was reported erroneously in the patient's chart. The patient does not report any history of lymphoma in the past and that is also corroborated by the patient's family). 7. Status post multiple ERCPs and stenting in the past since 2005. 8. Elevated alpha fetoprotein 1.8 in 12/2016. 9. Elevated CA19-9 of 272.9 in 12/2016. 10. Normal CEA at 1.6 on 01/14/2017. 11. Status post sigmoidoscopy, 01/16/2017, showing moderate pouchitis and negative for dysplasia or malignancy. 12. S/p perc drainage of right biliary system 04/03/17. 13. 04/09/17: s/p placement of left biliary drain which traverses patient's anastomosis on that side. Right system has a tight anastomosis that could not be traversed. 14. Compression fracture 04/10/17 Subjective: No major events or complaints; no major abd pain and under control with medications; no n/v/d; no sob or cp; + flatus; + BM and normal for him; minimal activity. Objective: Vitals: See below Exam: GENERAL: On exam, the patient was sitting on the commode and appeared to be comfortable and in no acute distress. ABDOMEN: Soft, nontender, and nondistended. Incisions are clean, dry and intact without any evidence of erythema, edema, discharge, or hernia. R biliary drains bilious. L biliary drain capped. SKIN: Skin appears to be pink and feels warm to touch. NEUROLOGIC: Patient was awake, alert, and followed commands appropriately. Exam/Review of Systems Vital Signs Vitals Vital Signs Date Time Temp Pulse Resp B/P Pulse Ox O2 Delivery O2 Flow Rate FiO2 04/25/17 08:07 98.2 62 16 109/70 99 04/24/17 16:40 Room Air 04/23/17 01:43 21 Intake and Output 04/24/17 04/24/17 04/25/17 15:00 23:00 07:00 Intake Total 740 ml 500 ml Output Total 0 ml 100 ml 100 ml Balance 0 ml 640 ml 400 ml Results Result Diagram: 04/25/17 0425 04/25/17 0425 ZOE GOYAL M.D. Apr 25, 2017 21:05
--- NOTE | 2017-04-25 22:53 | CONS ---
Date/Time of Note Date/Time of Note DATE: 04/25/17 TIME: 22:52 Assessment/Plan Assessment/Plan Chief Complaint/Hosp Course 1. 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 postop , NOW WITH Metastatic dis in the liver lobular area of elevated T2 signal is seen in the central liver worrisome for a mass possibly cholangiocarcinoma and this causes prominent intrahepatic biliary ductal dilatation of both the left and right intrahepatic biliary ducts with central loss of signal at the area of the mass. CT and MRI- REVIEWED TUMOR MARKERS : ca 19-9 1420 , c/w to tumor progression hepatobiliary consult noted- D/W D LEÓN POST drain placement in the right lobe of the liver- c/w abscess POST stenting across the anastomosis with IR. PTBD LFT - noted 2. Obstructive jaundice. Stable, ro stricture/recurrent tumor. MRCP/GI eval, hepatobiliary surgery consult- REVIEWED surgical f-up Dr Anderson noted POST biliary drainage by interventional radiology 3. Chronic Crohn's disease status post total proctocolectomy with J-pouch creation 2005. 4. Chronic primary sclerosing cholangitis w cholangiocarcinoma. Needs advanced care planning evaluated. Poor prognosis. Performance status questionable at this time for chemotherapy & bilirubin needs some improvement. 5. Malnutrition; oral feeds/Megace vs TPN 6. Active pouchitis? 7. Postop day 16 bd excision w cholecystectomy, excision of extrahepatic cbd and Isabell-en-Y hepaticojejunostomy. 8. Failure to thrive, may need snf 9. Anemia- WILL TRANSFUSE PRBC PRN 10. Reactive thrombocytosis 11. Dyslipidemia. POOR PS agree with transfer to SNF Hospice consult now on hold. DC PLANNING IN PROCESS Problems: Consultation Date/Type/Reason Admit Date/Time March 30, 2017 at 18:53 Initial Consult Date 03/31/17 [facility] Referring Provider: HUMZA JAIME MD 24 HR Interval Summary Free Text/Dictation Pt has less pain smpts, no acute events overnight. Wants to try and ambulate with nurse in room. Exam/Review of Systems Vital Signs Vitals Vital Signs Date Time Temp Pulse Resp B/P Pulse Ox O2 Delivery O2 Flow Rate FiO2 04/25/17 20:09 97.7 70 18 136/90 97 04/24/17 16:40 Room Air 04/23/17 01:43 21 Intake and Output 04/24/17 04/24/17 04/25/17 15:00 23:00 07:00 Intake Total 740 ml 500 ml Output Total 0 ml 100 ml 100 ml Balance 0 ml 640 ml 400 ml Exam Exam GENERAL: frail-looking male patient lying in bed in no apparent distress, alert. HEENT: Head normocephalic and atraumatic. Eyes: Anicteric sclerae. Conjunctivae clear. ENT: Nasal septum is midline. Oral mucosa is dry. NECK: Supple. No JVD noticed. RESPIRATORY: Bilaterally clear to auscultation. No adventitious breath sounds. No use of accessory muscles of respiration. CARDIAC: Regular rate and rhythm with a systolic murmur. ABDOMEN: Soft and nondistended. Incisions clean, dry and intact. biliary drains in place EXTREMITIES: No cyanosis, no clubbing, no edema. NEUROLOGIC: The patient is awake, alert and oriented. Cranial nerves are grossly intact. Results Result Diagram: 04/25/17 0425 04/25/17 0425 Results 24 hrs Laboratory Tests Test 04/25/17 04:25 White Blood Count 8.2 Red Blood Count 3.34 L Hemoglobin 10.1 L Hematocrit 32.2 L Mean Corpuscular Volume 96.4 Mean Corpuscular Hemoglobin 30.2 Mean Corpuscular Hemoglobin Concent 31.4 L Red Cell Distribution Width 20.1 H Platelet Count 434 H Mean Platelet Volume 9.2 Neutrophils % 64.2 Lymphocytes % 23.4 Monocytes % 9.9 Eosinophils % 1.9 Basophils % 0.2 Nucleated Red Blood Cells % 0.0 Neutrophils # 5.3 Lymphocytes # 1.9 Monocytes # 0.8 Eosinophils # 0.2 Basophils # 0.0 Nucleated Red Blood Cells # 0.0 Sodium Level 140 Potassium Level 4.1 Chloride Level 104 Carbon Dioxide Level 28 Anion Gap 12 Blood Urea Nitrogen 16 Creatinine 0.58 L Glucose Level 82 # Calcium Level 9.3 Total Bilirubin 2.5 H Direct Bilirubin 1.40 #H Indirect Bilirubin 1.1 Aspartate Amino Transf (AST/SGOT) 83 H Alanine Aminotransferase (ALT/SGPT) 69 Alkaline Phosphatase 329 H Total Protein 7.2 Albumin 3.8 Medications Medications Current Medications Ondansetron HCl (Zofran Inj) 4 mg Q6H PRN IV NAUSEA AND/OR VOMITING; Start at 19:30 Acetaminophen (Tylenol Tab) 650 mg Q6H PRN PO PAIN LEVEL 1-3 OR FEVER; Start at 19:30 Docusate Sodium (Colace) 100 mg Q12H PRN PO CONSTIPATION; Start 03/30/17 at 19: 30 Magnesium Hydroxide (Milk Of Mag) 30 ml DAILY PRN PO CONSTIPATION; Start at 19:30 Sodium Biphosphate/ Sodium Phosphate (Fleet Enema) 133 ml DAILY PRN [place] CONSTIPATION; Start 03/30/17 at 19:30 Pantoprazole (Protonix Iv) 40 mg DAILY@06 IV Last administered on 04/25/17 05: 39; Admin Dose 40 MG; Start 03/31/17 at 06:00 Hydralazine HCl (Apresoline) 10 mg Q6H PRN IV ELEVATED BLOOD PRESSURE; Start at 19:30 Nitroglycerin (Nitroglycerin (Sl Tab) 0.4 Mg) 1 tab Q5M PRN SL ANGINA; Start at 19:30 Escitalopram Oxalate (Lexapro) 20 mg DAILY PO Last administered on 04/25/17 09: 04; Admin Dose 20 MG; Start 04/11/17 at 09:00 Nystatin (Nystatin Susp) 5 ml QID PO Last administered on 04/25/17 21:17; Admin Dose 5 ML; Start 04/13/17 at 18:00 Potassium Chloride (Klor-Con 10) 10 meq BID@08,18 PO Last administered on 17:18; Admin Dose 10 MEQ; Start 04/17/17 at 08:00 Metronidazole (Flagyl) 500 mg Q8H PO Last administered on 04/25/17 17:18; Admin Dose 500 MG; Start 04/22/17 at 08:00 Levofloxacin (Levaquin) 500 mg DAILY@06 PO Last administered on 04/25/17 05:39 ; Admin Dose 500 MG; Start 04/22/17 at 09:00 Lidocaine (Lidocaine 5% Oint) 1 applic QID PRN TOP PAIN Last administered on 12:16; Admin Dose 1 APPLIC; Start 04/22/17 at 09:30 Hydromorphone HCl (Dilaudid) 2 mg Q6H PRN PO PAIN Last administered on 21:18; Admin Dose 2 MG; Start 04/24/17 at 11:00 KIN ESTEBAN MD Apr 25, 2017 22:53
[2017-04-26] MEDS: metroNIDAZOLE 500 MG TAB PO SCH ×3 (00:23→15:59)
[2017-04-26] MEDS: HYDROmorphONE 2 MG TAB PO PRN ×2 (03:23→16:00)
[2017-04-26] MEDS: LEVOFLOXACIN 500 MG TAB PO SCH (06:38)
[2017-04-26] MEDS: PANTOPRAZOLE 40 MG INJ IV SCH (06:40)
[2017-04-26 07:35] VITALS: BP 124/72; RESP 18
[2017-04-26] MEDS: NYSTATIN SUSP 5 ML CUP PO SCH ×3 (09:00→17:00)
[2017-04-26] MEDS: ESCITALOPRAM 10 MG TAB PO SCH (09:01)
[2017-04-26] MEDS: POTASSIUM CHLORIDE (SR) 10 MEQ TAB PO SCH ×2 (09:01→20:56)
[2017-04-26 10:08] LABS: ADD SCAN DIFF NO
[2017-04-26 10:16] LABS: BASOPHILS % 0.5 % (0.0-2.0); EOSINOPHILS # 0.2 10^3/ul (0.0-0.5); EOSINOPHILS % 1.9 % (0.0-7.0); HEMATOCRIT 34.4 % (42.0-52.0); HEMOGLOBIN 10.4 g/dl (14.0-18.0); LYMPHOCYTES # 1.1 10^3/ul (0.8-2.9); LYMPHOCYTES % 13.2 % (15.0-51.0); MEAN CORPUSCULAR HEMOGLOBIN 30.1 pg (29.0-33.0); MEAN CORPUSCULAR HGB CONC 30.2 g/dl (32.0-37.0); MEAN CORPUSCULAR VOLUME 99.4 fl (82.0-101.0); MEAN PLATELET VOLUME 9.2 fl (7.4-10.4); MONOCYTES % 11.3 % (0.0-11.0); NEUTROPHIL # 6.1 10^3/ul (1.6-7.5); NEUTROPHILS % 72.6 % (39.0-77.0); PLATELET COUNT 387 10^3/UL (140-415); RED BLOOD COUNT 3.46 10^6/ul (4.70-6.10); RED CELL DISTRIBUTION WIDTH 20.1 % (11.5-14.5); WHITE BLOOD COUNT 8.4 10^3/ul (4.8-10.8)
[2017-04-26 10:50] LABS: CALCIUM 8.8 mg/dl (8.4-10.2); CREATININE 0.45 mg/dl (0.61-1.24); POTASSIUM 3.8 mmol/L (3.5-5.1)
--- NOTE | 2017-04-26 15:07 | PN ---
Date/Time of Note Date/Time of Note DATE: 04/26/17 TIME: 15:06 Assessment/Plan Lines/Catheters IV Catheter Type (from [facility]): Saline Lock Andrews in Place (from [facility]): No Assessment/Plan Assessment/Plan [facility] Progress Note Date of Service: 04/26/17 Today's Impression & Plan: Overall stable. No new issues. Awaiting SNF bed. With above assessment, I've recommended the following for today: 1. Continued aggressive medical management 2. Aggressive nutritional support with increased oral intake. 3. Labs in am including LFT's 4. R biliary drain to gravity drainage 5. L biliary drain to remain capped 6. Flush both biliary drains with 10 cc NS BID (very important to be taught to patient, family and to the next level of care nurses) 7. Discontinue antimicrobials 8. Assisted activity with education on how to deal with his back 9. F/u on culture results and do more cultures if indicated clinically (still at risk for ongoing cholangitis, UTI, pneumonia, etc.) 10. Ongoing plans for SNF placement Thank you again for your great care of this very pleasant patient and wonderful family. If there are any questions, please feel free to call me at [phone]. TOTAL VISIT TIME: 20 minutes of which more than half was spent in [id number] discussion with the patient, possibly including family, as well as coordination of care between multiple physicians and providers. Disclaimer: Inadvertent spelling or grammatical errors are likely due to EHR/ dictation software use and do not reflect on the overall quality of patient care. Updated clinical summary: A very pleasant 61-year-old gentleman with significant past medical history including ulcerative colitis status post total proctocolectomy and ileoanal pouch as well as a number of other medical issues who was diagnosed with cholangiocarcinoma and underwent a radical bile duct resection that included extrahepatic bile duct and gallbladder at [facility], 2016, with final diagnosis of cholangiocarcinoma with 1/8 lymph node positive disease as well as low-grade dysplasia and carcinoma in situ at the proximal margin. The patient was readmitted to [facility] after a 2 month hospital stay at [facility] with increasing weakness, jaundice, and diffuse body pain. S/p perc drainage of right biliary system 04/03/17. : s/p placement of left biliary drain which traverses patient's anastomosis on that side. Right system has a tight anastomosis that could not be traversed. R biliary drain upsized 04/12/17. L biliary drain capped . COMORBIDITIES: 1. History of ulcerative colitis status post total proctocolectomy and ileoanal pouch. 2. Diagnosis of primary sclerosing cholangitis since 2008 being cared for at various institutions such as [facility] and by various physicians with involvement of Dr. Krystian Adkins for hepatology. 3. History of hospitalization at [facility] for bile duct obstruction from mid December to early March with bile duct excision with cholecystectomy with removal of extrahepatic bile duct and Isabell-en-Y hepaticojejunostomy on 07/2017 with the above-mentioned pathology. 4. Chronic back pain, mainly lower, for the last 5 to 6 years. 5. Significant weight loss of more than 20 to 30 pounds over the last 6 months. 6. No history of lymphoma (note that this was reported erroneously in the patient's chart. The patient does not report any history of lymphoma in the past and that is also corroborated by the patient's family). 7. Status post multiple ERCPs and stenting in the past since 2005. 8. Elevated alpha fetoprotein 1.8 in 12/2016. 9. Elevated CA19-9 of 272.9 in 12/2016. 10. Normal CEA at 1.6 on 01/14/2017. 11. Status post sigmoidoscopy, 01/16/2017, showing moderate pouchitis and negative for dysplasia or malignancy. 12. S/p perc drainage of right biliary system 04/03/17. 13. 04/09/17: s/p placement of left biliary drain which traverses patient's anastomosis on that side. Right system has a tight anastomosis that could not be traversed. 14. Compression fracture 04/10/17 Subjective: No major events or complaints; no abd pain and under control with medications; no n/v/d; no sob or cp; + flatus; + BM and normal for him; + activity. Objective: Vitals: See below Exam: GENERAL: On exam, the patient was standing up in his room and appeared to be comfortable and in no acute distress. ABDOMEN: Soft, nontender, and nondistended. Incisions are clean, dry and intact without any evidence of erythema, edema, discharge, or hernia. R biliary drains bilious. L biliary drain capped. SKIN: Skin appears to be pink and feels warm to touch. NEUROLOGIC: Patient was awake, alert, and followed commands appropriately. Exam/Review of Systems Vital Signs Vitals Vital Signs Date Time Temp Pulse Resp B/P Pulse Ox O2 Delivery O2 Flow Rate FiO2 04/26/17 07:35 98.1 66 18 124/72 100 04/24/17 16:40 Room Air 04/23/17 01:43 21 Intake and Output 04/25/17 04/25/17 04/26/17 15:00 23:00 07:00 Intake Total 1460 ml 480 ml Output Total 55 ml Balance 1405 ml 480 ml Results Result Diagram: 04/26/17 0945 04/26/17 0945 ZOE GOYAL M.D. Apr 26, 2017 15:07
--- NOTE | 2017-04-26 15:26 | PN ---
DATE: 04/21/2017 OBJECTIVE: VITAL SIGNS: Afebrile, vital signs stable. CHEST: Clear. COR: S1, S2, without S3, S4, murmur, gallop, rub. Normal rate, normal rhythm on examination. ABDOMEN: Grossly benign. NEUROLOGICAL: He is oriented x3. Cranial nerves II through XII are grossly intact. Motor and sens ory findings grossly within normal limits. ASSESSMENT AND PLAN: No major change in his current pain control. Discussion once again ongoing le nato of care, although I have not discussed hospice care until discussing with Dr. Anderson. Dictated By: SAVANAH DUBOSE MD LP/NTS Conf#: [id number] DID#: [id number]
--- NOTE | 2017-04-26 15:31 | PN ---
DATE: 04/26/2017 PALLIATIVE CARE PROGRESS NOTE I had a discussion with Dr. Anderson concerning ongoing level of care. The plans for the patient jordan lo go to a retirement unit but without hospice care for readmission to Dr. Anderson and to have f urther surgical intervention at that time. I have had a discussion with Mr. Son in the past. He wants to pursue all aggressive level of care. I do not believe that there is an indication at this time to refer patient to hospice care. I agree with Dr. Anderson to continue to palliate his care. I f he does go on hospice care, he will not be readmitted unless he signs off of hospice care, which m ay be somewhat problematic, although it can be done, I do not believe in patient's best interest at this time. I believe his goals are to continue with this level of care irrespective of his ultimate very poor prognosis. Dictated By: SAVANAH DUBOSE MD, LP/JASMYNE Conf#: [id number] DID#: [id number]
--- NOTE | 2017-04-26 15:37 | PN ---
DATE: 04/26/2017 This is a palliative care progress note. I had a long discussion with the patient and also with his sister at this time. His pain is under v afshin good control right now. He only used the PRACTICE COORDINATOR pump up to 3 times per day and states his pain is under better control from his abdomen and also from his sacrum. OBJECTIVE VITAL SIGNS: He is afebrile. Vital signs are stable. CHEST: Shows clear breath sounds throughout both lung lucas. COR: S1, S2, without S3, S4, murmur, gallop, rub. Normal rate, normal rhythm. ABDOMEN: He is grossly benign. ASSESSMENT AND PLAN: I will continue with current dosing of pain medications. I have discussed [facility] level of care with him, but have not discussed anything related to hospice care at this time un til I speak with Dr. Anderson in more detail. Dictated By: SAVANAH DUBOSE MD LP/NTS Conf#: [id number] DID#: [id number]
--- NOTE | 2017-04-26 16:02 | PN ---
Date/Time of Note Date/Time of Note DATE: 04/26/17 TIME: 16:01 Assessment/Plan VTE Prophylaxis VTE Prophylaxis Intervention: SCD's Lines/Catheters IV Catheter Type (from Nrs): Saline Lock Urinary Cath still in place: No Assessment/Plan Chief Complaint/Hosp Course A/P: 61 M with: 1. Metastatic cholangiocarcinoma with metastasis to the liver and lymph nodes. Status post cholecystectomy and excision of hepatic common bile duct with Isabell -en-Y hepaticojejunostomy on 01/24/2017. The patient being followed by oncology and hepatobiliary team. Poor prognosis. Biliary drains in place, one is capped. - continue current care including pain control - off [employer] pump - f/u heme/Onc and surgery rec's - pt likely would benefit from SNF placement and close Heme/onc and surgery follow up, as mass may be amenable to further tx in outpt setting (per discussion with surgery team) - CM actively working on this. 2. History of Crohn's disease status post a proctocolectomy with J-pouch creation in 2005 - monitor 3. History of chronic primary sclerosing cholangitis - monitor 4. Sinus bradycardia, asymptomatic. Cardiology following - HR improved - monitor 5. Chronic back pain. Lumbar spine CT showing osteopenia with mild L2 compression fracture. Continue on analgesics, including dilaudid PO prn for now 6. Protein calorie malnutrition. Severe. Dietary supplements. 7. Normocytic normochromic anemia, most probably anemia of chronic disease. Monitor H and H closely. 8. Depression. Continue Lexapro. 9. Status post placement of left biliary drain on 04/09/2017. Continue management as per surgery. 10. Status post placement of a right biliary drain on 03/24/2017, management as per surgery. On antibiotics as per infectious disease. 11. Fluid, electrolytes and nutrition. Soft diet. 11. DVT prophylaxis with bilateral sequential compression devices. 12. Gastrointestinal prophylaxis. Proton pump inhibitors intervention planned. Plan. Continue current management. Plan is to discharge the patient to long-term facility when available - CM actively working on this. Problems: Subjective 24 Hr Interval Summary Free Text/Dictation Pt had no acute events overnight. Exam/Review of Systems Vital Signs Vitals Vital Signs Date Time Temp Pulse Resp B/P Pulse Ox O2 Delivery O2 Flow Rate FiO2 04/26/17 07:35 98.1 66 18 124/72 100 04/24/17 16:40 Room Air 04/23/17 01:43 21 Intake and Output 04/25/17 04/25/17 04/26/17 15:00 23:00 07:00 Intake Total 1460 ml 480 ml Output Total 55 ml Balance 1405 ml 480 ml Exam GENERAL: frail-looking male patient lying in bed in no apparent distress, alert. HEENT: Head normocephalic and atraumatic. Eyes: Anicteric sclerae. Conjunctivae clear. ENT: Nasal septum is midline. Oral mucosa is dry. NECK: Supple. No JVD noticed. RESPIRATORY: Bilaterally clear to auscultation. No adventitious breath sounds. No use of accessory muscles of respiration. CARDIAC: Regular rate and rhythm with a systolic murmur. ABDOMEN: Soft and nondistended. Incisions clean, dry and intact. biliary drains in place EXTREMITIES: No cyanosis, no clubbing, no edema. NEUROLOGIC: The patient is awake, alert and oriented. Cranial nerves are grossly intact. Results Result Diagram: 04/26/17 0945 04/26/17 0945 Results 24 hrs Laboratory Tests Test 04/26/17 09:45 White Blood Count 8.4 Red Blood Count 3.46 L Hemoglobin 10.4 L Hematocrit 34.4 L Mean Corpuscular Volume 99.4 Mean Corpuscular Hemoglobin 30.1 Mean Corpuscular Hemoglobin Concent 30.2 L Red Cell Distribution Width 20.1 H Platelet Count 387 Mean Platelet Volume 9.2 Neutrophils % 72.6 Lymphocytes % 13.2 L Monocytes % 11.3 H Eosinophils % 1.9 Basophils % 0.5 Nucleated Red Blood Cells % 0.0 Neutrophils # 6.1 Lymphocytes # 1.1 Monocytes # 1.0 H Eosinophils # 0.2 Basophils # 0.0 Nucleated Red Blood Cells # 0.0 Sodium Level 136 Potassium Level 3.8 Chloride Level 104 Carbon Dioxide Level 23 Anion Gap 13 Blood Urea Nitrogen 13 Creatinine 0.45 L Glucose Level 89 Calcium Level 8.8 Medications Medications Current Medications Ondansetron HCl (Zofran Inj) 4 mg Q6H PRN IV NAUSEA AND/OR VOMITING; Start at 19:30 Acetaminophen (Tylenol Tab) 650 mg Q6H PRN PO PAIN LEVEL 1-3 OR FEVER; Start at 19:30 Docusate Sodium (Colace) 100 mg Q12H PRN PO CONSTIPATION; Start 03/30/17 at 19: 30 Magnesium Hydroxide (Milk Of Mag) 30 ml DAILY PRN PO CONSTIPATION; Start at 19:30 Sodium Biphosphate/ Sodium Phosphate (Fleet Enema) [address] CONSTIPATION; Start 03/30/17 at 19:30 Pantoprazole (Protonix Iv) 40 mg DAILY@06 IV Last administered on 04/26/17 06: 40; Admin Dose 40 MG; Start 03/31/17 at 06:00 Hydralazine HCl (Apresoline) 10 mg Q6H PRN IV ELEVATED BLOOD PRESSURE; Start at 19:30 Nitroglycerin (Nitroglycerin (Sl Tab) 0.4 Mg) 1 tab Q5M PRN SL ANGINA; Start at 19:30 Escitalopram Oxalate (Lexapro) 20 mg DAILY PO Last administered on 04/26/17 09: 01; Admin Dose 20 MG; Start 04/11/17 at 09:00 Nystatin (Nystatin Susp) 5 ml QID PO Last administered on 04/26/17 13:04; Admin Dose 5 ML; Start 04/13/17 at 18:00 Potassium Chloride (Klor-Con 10) 10 meq BID@08,18 PO Last administered on 09:01; Admin Dose 10 MEQ; Start 04/17/17 at 08:00 Metronidazole (Flagyl) 500 mg Q8H PO Last administered on 04/26/17 09:01; Admin Dose 500 MG; Start 04/22/17 at 08:00 Levofloxacin (Levaquin) 500 mg DAILY@06 PO Last administered on 04/26/17 06:38 ; Admin Dose 500 MG; Start 04/22/17 at 09:00 Lidocaine (Lidocaine 5% Oint) 1 applic QID PRN TOP PAIN Last administered on 12:16; Admin Dose 1 APPLIC; Start 04/22/17 at 09:30 Hydromorphone HCl (Dilaudid) 2 mg Q6H PRN PO PAIN Last administered on 03:23; Admin Dose 2 MG; Start 04/24/17 at 11:00 ORION GUILLEN Apr 26, 2017 16:02
[2017-04-26 22:08] VITALS: BP 116/73; RESP 18
--- NOTE | 2017-04-26 23:41 | CONS ---
Date/Time of Note Date/Time of Note DATE: 04/26/17 TIME: 23:40 Assessment/Plan Assessment/Plan Chief Complaint/Hosp Course 1. 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 postop , NOW WITH Metastatic dis in the liver lobular area of elevated T2 signal is seen in the central liver worrisome for a mass possibly cholangiocarcinoma and this causes prominent intrahepatic biliary ductal dilatation of both the left and right intrahepatic biliary ducts with central loss of signal at the area of the mass. CT and MRI- REVIEWED TUMOR MARKERS : ca 19-9 1420 , c/w to tumor progression hepatobiliary consult noted- D/W D LEÓN POST drain placement in the right lobe of the liver- c/w abscess POST stenting across the anastomosis with IR. PTBD LFT - noted 2. Obstructive jaundice. Stable, ro stricture/recurrent tumor. MRCP/GI eval, hepatobiliary surgery consult- REVIEWED surgical f-up Dr Anderson noted POST biliary drainage by interventional radiology 3. Chronic Crohn's disease status post total proctocolectomy with J-pouch creation 2005. 4. Chronic primary sclerosing cholangitis w cholangiocarcinoma. Needs advanced care planning evaluated. Poor prognosis. Performance status questionable at this time for chemotherapy & bilirubin needs some improvement. 5. Malnutrition; oral feeds/Megace vs TPN 6. Active pouchitis? 7. Postop day 16 bd excision w cholecystectomy, excision of extrahepatic cbd and Isabell-en-Y hepaticojejunostomy. 8. Failure to thrive, may need snf 9. Anemia- WILL TRANSFUSE PRBC PRN 10. Reactive thrombocytosis 11. Dyslipidemia. POOR PS agree with transfer to SNF Hospice consult now on hold. DC PLANNING IN PROCESS Problems: Consultation Date/Type/Reason Admit Date/Time March 30, 2017 at 18:53 Initial Consult Date 03/31/17 [facility] Referring Provider: HUMZA JAIME MD 24 HR Interval Summary Free Text/Dictation Pt had no acute events overnight. Exam/Review of Systems Vital Signs Vitals Vital Signs Date Time Temp Pulse Resp B/P Pulse Ox O2 Delivery O2 Flow Rate FiO2 04/26/17 22:08 99.0 67 18 116/73 99 04/24/17 16:40 Room Air 04/23/17 01:43 21 Intake and Output 04/25/17 04/25/17 04/26/17 15:00 23:00 07:00 Intake Total 1460 ml 480 ml Output Total 55 ml Balance 1405 ml 480 ml Exam Exam GENERAL: frail-looking male patient lying in bed in no apparent distress, alert. HEENT: Head normocephalic and atraumatic. Eyes: Anicteric sclerae. Conjunctivae clear. ENT: Nasal septum is midline. Oral mucosa is dry. NECK: Supple. No JVD noticed. RESPIRATORY: Bilaterally clear to auscultation. No adventitious breath sounds. No use of accessory muscles of respiration. CARDIAC: Regular rate and rhythm with a systolic murmur. ABDOMEN: Soft and nondistended. Incisions clean, dry and intact. biliary drains in place EXTREMITIES: No cyanosis, no clubbing, no edema. NEUROLOGIC: The patient is awake, alert and oriented. Cranial nerves are grossly intact. Results Result Diagram: 04/26/17 0945 04/26/17 0945 Results 24 hrs Laboratory Tests Test 04/26/17 09:45 White Blood Count 8.4 Red Blood Count 3.46 L Hemoglobin 10.4 L Hematocrit 34.4 L Mean Corpuscular Volume 99.4 Mean Corpuscular Hemoglobin 30.1 Mean Corpuscular Hemoglobin Concent 30.2 L Red Cell Distribution Width 20.1 H Platelet Count 387 Mean Platelet Volume 9.2 Neutrophils % 72.6 Lymphocytes % 13.2 L Monocytes % 11.3 H Eosinophils % 1.9 Basophils % 0.5 Nucleated Red Blood Cells % 0.0 Neutrophils # 6.1 Lymphocytes # 1.1 Monocytes # 1.0 H Eosinophils # 0.2 Basophils # 0.0 Nucleated Red Blood Cells # 0.0 Sodium Level 136 Potassium Level 3.8 Chloride Level 104 Carbon Dioxide Level 23 Anion Gap 13 Blood Urea Nitrogen 13 Creatinine 0.45 L Glucose Level 89 Calcium Level 8.8 Medications Medications Current Medications Ondansetron HCl (Zofran Inj) 4 mg Q6H PRN IV NAUSEA AND/OR VOMITING; Start at 19:30 Acetaminophen (Tylenol Tab) 650 mg Q6H PRN PO PAIN LEVEL 1-3 OR FEVER; Start at 19:30 Docusate Sodium (Colace) 100 mg Q12H PRN PO CONSTIPATION; Start 03/30/17 at 19: 30 Magnesium Hydroxide (Milk Of Mag) 30 ml DAILY PRN PO CONSTIPATION; Start at 19:30 Sodium Biphosphate/ Sodium Phosphate (Fleet Enema) 133 ml DAILY PRN [place] CONSTIPATION; Start 03/30/17 at 19:30 Pantoprazole (Protonix Iv) 40 mg DAILY@06 IV Last administered on 04/26/17 06: 40; Admin Dose 40 MG; Start 03/31/17 at 06:00 Hydralazine HCl (Apresoline) 10 mg Q6H PRN IV ELEVATED BLOOD PRESSURE; Start at 19:30 Nitroglycerin (Nitroglycerin (Sl Tab) 0.4 Mg) 1 tab Q5M PRN SL ANGINA; Start at 19:30 Escitalopram Oxalate (Lexapro) 20 mg DAILY PO Last administered on 04/26/17 09: 01; Admin Dose 20 MG; Start 04/11/17 at 09:00 Nystatin (Nystatin Susp) 5 ml QID PO Last administered on 04/26/17 13:04; Admin Dose 5 ML; Start 04/13/17 at 18:00 Potassium Chloride (Klor-Con 10) 10 meq BID@08,18 PO Last administered on 20:56; Admin Dose 10 MEQ; Start 04/17/17 at 08:00 Metronidazole (Flagyl) 500 mg Q8H PO Last administered on 04/26/17 15:59; Admin Dose 500 MG; Start 04/22/17 at 08:00 Levofloxacin (Levaquin) 500 mg DAILY@06 PO Last administered on 04/26/17 06:38 ; Admin Dose 500 MG; Start 04/22/17 at 09:00 Lidocaine (Lidocaine 5% Oint) 1 applic QID PRN TOP PAIN Last administered on 12:16; Admin Dose 1 APPLIC; Start 04/22/17 at 09:30 Hydromorphone HCl (Dilaudid) 2 mg Q6H PRN PO PAIN Last administered on 16:00; Admin Dose 2 MG; Start 04/24/17 at 11:00 KIN ESTEBAN MD Apr 26, 2017 23:40
[2017-04-27] MEDS: HYDROmorphONE 2 MG TAB PO PRN ×4 (00:17→21:51)
[2017-04-27] MEDS: metroNIDAZOLE 500 MG TAB PO SCH ×3 (00:17→16:16)
[2017-04-27] MEDS: NYSTATIN SUSP 5 ML CUP PO SCH ×5 (00:18→21:33)
[2017-04-27] MEDS: PANTOPRAZOLE 40 MG INJ IV SCH (06:22)
[2017-04-27] MEDS: LEVOFLOXACIN 500 MG TAB PO SCH (06:22)
[2017-04-27 07:30] VITALS: BP 109/66; RESP 16
[2017-04-27] MEDS: POTASSIUM CHLORIDE (SR) 10 MEQ TAB PO SCH ×2 (09:30→16:16)
[2017-04-27] MEDS: ESCITALOPRAM 10 MG TAB PO SCH (09:30)
[2017-04-27 10:03] LABS: ADD SCAN DIFF NO
[2017-04-27 10:04] LABS: BASOPHILS % 0.4 % (0.0-2.0); EOSINOPHILS # 0.2 10^3/ul (0.0-0.5); EOSINOPHILS % 2.1 % (0.0-7.0); HEMATOCRIT 32.7 % (42.0-52.0); HEMOGLOBIN 10.3 g/dl (14.0-18.0); LYMPHOCYTES # 1.1 10^3/ul (0.8-2.9); LYMPHOCYTES % 14.3 % (15.0-51.0); MEAN CORPUSCULAR HEMOGLOBIN 30.9 pg (29.0-33.0); MEAN CORPUSCULAR HGB CONC 31.5 g/dl (32.0-37.0); MEAN CORPUSCULAR VOLUME 98.2 fl (82.0-101.0); MEAN PLATELET VOLUME 9.2 fl (7.4-10.4); MONOCYTE # 0.8 10^3/ul (0.3-0.9); NEUTROPHIL # 5.8 10^3/ul (1.6-7.5); NEUTROPHILS % 72.7 % (39.0-77.0); PLATELET COUNT 423 10^3/UL (140-415); RED BLOOD COUNT 3.33 10^6/ul (4.70-6.10); RED CELL DISTRIBUTION WIDTH 20.1 % (11.5-14.5); WHITE BLOOD COUNT 7.9 10^3/ul (4.8-10.8)
[2017-04-27 10:24] LABS: CALCIUM 8.8 mg/dl (8.4-10.2); CREATININE 0.59 mg/dl (0.61-1.24); POTASSIUM 3.8 mmol/L (3.5-5.1)
--- NOTE | 2017-04-27 13:32 | PN ---
Date/Time of Note Date/Time of Note DATE: 04/27/17 TIME: 13:30 Assessment/Plan VTE Prophylaxis VTE Prophylaxis Intervention: SCD's Lines/Catheters IV Catheter Type (from Nrs): Saline Lock Urinary Cath still in place: No Assessment/Plan Chief Complaint/Hosp Course A/P: 61 M with: 1. Metastatic cholangiocarcinoma with metastasis to the liver and lymph nodes. Status post cholecystectomy and excision of hepatic common bile duct with Isabell -en-Y hepaticojejunostomy on 01/24/2017. The patient being followed by oncology and hepatobiliary team. Poor prognosis. Biliary drains in place, one is capped. - continue current care including pain control - off CERAMIC PAINTER pump - f/u heme/Onc and surgery rec's - pt likely would benefit from SNF placement and close Heme/onc and surgery follow up, as mass may be amenable to further tx in outpt setting (per discussion with surgery team) - CM actively working on this. 2. History of Crohn's disease status post a proctocolectomy with J-pouch creation in 2005 - monitor 3. History of chronic primary sclerosing cholangitis - monitor 4. Sinus bradycardia, asymptomatic. Cardiology following - HR improved - monitor 5. Chronic back pain. Lumbar spine CT showing osteopenia with mild L2 compression fracture. Continue on analgesics, including dilaudid PO prn for now 6. Protein calorie malnutrition. Severe. Dietary supplements. 7. Normocytic normochromic anemia, most probably anemia of chronic disease. Monitor H and H closely. 8. Depression. Continue Lexapro. 9. Status post placement of left biliary drain on 04/09/2017. Continue management as per surgery. 10. Status post placement of a right biliary drain on 03/24/2017, management as per surgery. On antibiotics as per infectious disease. 11. Fluid, electrolytes and nutrition. Soft diet. 11. DVT prophylaxis with bilateral sequential compression devices. 12. Gastrointestinal prophylaxis. Proton pump inhibitors intervention planned. Plan. Continue current management. Plan [facility] - CM actively working on this. Problems: Subjective 24 Hr Interval Summary Free Text/Dictation No acute events overnight. Pt with some pain symptoms. Exam/Review of Systems Vital Signs Vitals Vital Signs Date Time Temp Pulse Resp B/P Pulse Ox O2 Delivery O2 Flow Rate FiO2 04/27/17 07:30 98.2 65 16 109/66 97 04/24/17 16:40 Room Air Intake and Output 04/26/17 04/26/17 04/27/17 15:00 23:00 07:00 Intake Total 600 ml Output Total 60 ml 30 ml Balance -60 ml 570 ml Exam GENERAL: frail-looking male patient lying in bed in no apparent distress, alert. HEENT: Head normocephalic and atraumatic. Eyes: Anicteric sclerae. Conjunctivae clear. ENT: Nasal septum is midline. Oral mucosa is dry. NECK: Supple. No JVD noticed. RESPIRATORY: Bilaterally clear to auscultation. No adventitious breath sounds. No use of accessory muscles of respiration. CARDIAC: Regular rate and rhythm with a systolic murmur. ABDOMEN: Soft and nondistended. Incisions clean, dry and intact. biliary drains in place EXTREMITIES: No cyanosis, no clubbing, no edema. NEUROLOGIC: The patient is awake, alert and oriented. Cranial nerves are grossly intact. Results Result Diagram: 04/27/17 0935 04/27/17 0935 Results 24 hrs Laboratory Tests Test 04/27/17 09:35 White Blood Count 7.9 Red Blood Count 3.33 L Hemoglobin 10.3 L Hematocrit 32.7 L Mean Corpuscular Volume 98.2 Mean Corpuscular Hemoglobin 30.9 Mean Corpuscular Hemoglobin Concent 31.5 L Red Cell Distribution Width 20.1 H Platelet Count 423 H Mean Platelet Volume 9.2 Neutrophils % 72.7 Lymphocytes % 14.3 L Monocytes % 10.0 Eosinophils % 2.1 Basophils % 0.4 Nucleated Red Blood Cells % 0.0 Neutrophils # 5.8 Lymphocytes # 1.1 Monocytes # 0.8 Eosinophils # 0.2 Basophils # 0.0 Nucleated Red Blood Cells # 0.0 Sodium Level 138 Potassium Level 3.8 Chloride Level 103 Carbon Dioxide Level 28 Anion Gap 11 Blood Urea Nitrogen 11 Creatinine 0.59 L Glucose Level 86 Calcium Level 8.8 Medications Medications Current Medications Ondansetron HCl (Zofran Inj) 4 mg Q6H PRN IV NAUSEA AND/OR VOMITING; Start at 19:30 Acetaminophen (Tylenol Tab) 650 mg Q6H PRN PO PAIN LEVEL 1-3 OR FEVER; Start at 19:30 Docusate Sodium (Colace) 100 mg Q12H PRN PO CONSTIPATION; Start 03/30/17 at 19: 30 Magnesium Hydroxide (Milk Of Mag) 30 ml DAILY PRN PO CONSTIPATION; Start at 19:30 Sodium Biphosphate/ Sodium Phosphate (Fleet Enema) 133 ml DAILY PRN [place] CONSTIPATION; Start 03/30/17 at 19:30 Pantoprazole (Protonix Iv) 40 mg DAILY@06 IV Last administered on 04/27/17 06: 22; Admin Dose 40 MG; Start 03/31/17 at 06:00 Hydralazine HCl (Apresoline) 10 mg Q6H PRN IV ELEVATED BLOOD PRESSURE; Start at 19:30 Nitroglycerin (Nitroglycerin (Sl Tab) 0.4 Mg) 1 tab Q5M PRN SL ANGINA; Start at 19:30 Escitalopram Oxalate (Lexapro) 20 mg DAILY PO Last administered on 04/27/17 09 :30; Admin Dose 20 MG; Start 04/11/17 at 09:00 Nystatin (Nystatin Susp) 5 ml QID PO Last administered on 04/27/17 09:30; Admin Dose 5 ML; Start 04/13/17 at 18:00 Potassium Chloride (Klor-Con 10) 10 meq BID@08,18 PO Last administered on 09:30; Admin Dose 10 MEQ; Start 04/17/17 at 08:00 Metronidazole (Flagyl) 500 mg Q8H PO Last administered on 04/27/17 09:30; Admin Dose 500 MG; Start 04/22/17 at 08:00 Levofloxacin (Levaquin) 500 mg DAILY@06 PO Last administered on 04/27/17 06:22 ; Admin Dose 500 MG; Start 04/22/17 at 09:00 Lidocaine (Lidocaine 5% Oint) 1 applic QID PRN TOP PAIN Last administered on 12:16; Admin Dose 1 APPLIC; Start 04/22/17 at 09:30 Hydromorphone HCl (Dilaudid) 2 mg Q6H PRN PO PAIN Last administered on 06:23; Admin Dose 2 MG; Start 04/24/17 at 11:00 ORION GUILLEN Apr 27, 2017 13:32
--- NOTE | 2017-04-27 13:56 | PN ---
Date/Time of Note Date/Time of Note DATE: 04/27/17 TIME: 13:55 Assessment/Plan Lines/Catheters IV Catheter Type (from [facility]): Saline Lock Andrews in Place (from [facility]): No Assessment/Plan Assessment/Plan [facility] Progress Note Date of Service: 04/27/17 Today's Impression & Plan: Overall stable. No new issues. Awaiting SNF bed. With above assessment, I've recommended the following for today: 1. Continued aggressive medical management 2. Aggressive nutritional support with increased oral intake. 3. Labs in am including LFT's 4. R biliary drain to gravity drainage 5. L biliary drain to remain capped 6. Flush both biliary drains with 10 cc NS BID (very important to be taught to patient, family and to the next level of care nurses) 7. Discontinue antimicrobials 8. Assisted activity with education on how to deal with his back 9. F/u on culture results and do more cultures if indicated clinically (still at risk for ongoing cholangitis, UTI, pneumonia, etc.) 10. Ongoing plans for SNF placement Thank you again for your great care of this very pleasant patient and wonderful family. If there are any questions, please feel free to call me at [phone]. TOTAL VISIT TIME: 20 minutes of which more than half was spent in [id number] discussion with the patient, possibly including family, as well as coordination of care between multiple physicians and providers. Disclaimer: Inadvertent spelling or grammatical errors are likely due to EHR/ dictation software use and do not reflect on the overall quality of patient care. Updated clinical summary: A very pleasant 61-year-old gentleman with significant past medical history including ulcerative colitis status post total proctocolectomy and ileoanal pouch as well as a number of other medical issues who was diagnosed with cholangiocarcinoma and underwent a radical bile duct resection that included extrahepatic bile duct and gallbladder at [facility], 2016, with final diagnosis of cholangiocarcinoma with 1/8 lymph node positive disease as well as low-grade dysplasia and carcinoma in situ at the proximal margin. The patient was readmitted to [facility] after a 2 month hospital stay at [facility] with increasing weakness, jaundice, and diffuse body pain. S/p perc drainage of right biliary system 04/03/17. : s/p placement of left biliary drain which traverses patient's anastomosis on that side. Right system has a tight anastomosis that could not be traversed. R biliary drain upsized 04/12/17. L biliary drain capped . COMORBIDITIES: 1. History of ulcerative colitis status post total proctocolectomy and ileoanal pouch. 2. Diagnosis of primary sclerosing cholangitis since 2008 being cared for at various institutions such as [facility] and by various physicians with involvement of Dr. Krystian Adkins for hepatology. 3. History of hospitalization at [facility] for bile duct obstruction from mid December to early March with bile duct excision with cholecystectomy with removal of extrahepatic bile duct and Isabell-en-Y hepaticojejunostomy on 07/2017 with the above-mentioned pathology. 4. Chronic back pain, mainly lower, for the last 5 to 6 years. 5. Significant weight loss of more than 20 to 30 pounds over the last 6 months. 6. No history of lymphoma (note that this was reported erroneously in the patient's chart. The patient does not report any history of lymphoma in the past and that is also corroborated by the patient's family). 7. Status post multiple ERCPs and stenting in the past since 2005. 8. Elevated alpha fetoprotein 1.8 in 12/2016. 9. Elevated CA19-9 of 272.9 in 12/2016. 10. Normal CEA at 1.6 on 01/14/2017. 11. Status post sigmoidoscopy, 01/16/2017, showing moderate pouchitis and negative for dysplasia or malignancy. 12. S/p perc drainage of right biliary system 04/03/17. 13. 04/09/17: s/p placement of left biliary drain which traverses patient's anastomosis on that side. Right system has a tight anastomosis that could not be traversed. 14. Compression fracture 04/10/17 Subjective: No major events or complaints; no abd pain and under control with medications; main source of pain is his back; no n/v/d; no sob or cp; + flatus; + BM and normal for him; + activity. Generally in good spirits. Objective: Vitals: See below Exam: GENERAL: On exam, the patient was standing up in his room and appeared to be comfortable and in no acute distress. ABDOMEN: Soft, nontender, and nondistended. Incisions are clean, dry and intact without any evidence of erythema, edema, discharge, or hernia. R biliary drains bilious. L biliary drain capped. SKIN: Skin appears to be pink and feels warm to touch. NEUROLOGIC: Patient was awake, alert, and followed commands appropriately. Exam/Review of Systems Vital Signs Vitals Vital Signs Date Time Temp Pulse Resp B/P Pulse Ox O2 Delivery O2 Flow Rate FiO2 04/27/17 07:30 98.2 65 16 109/66 97 04/24/17 16:40 Room Air Intake and Output 04/26/17 04/26/17 04/27/17 15:00 23:00 07:00 Intake Total 600 ml Output Total 60 ml 30 ml Balance -60 ml 570 ml Results Result Diagram: 04/27/17 0935 04/27/17 0935 ZOE GOYAL M.D. Apr 27, 2017 13:56
--- NOTE | 2017-04-27 19:04 | CONS ---
Date/Time of Note Date/Time of Note DATE: 04/27/17 TIME: 19:02 Assessment/Plan Assessment/Plan Chief Complaint/Hosp Course 1. 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 postop , NOW WITH Metastatic dis in the liver lobular area of elevated T2 signal is seen in the central liver worrisome for a mass possibly cholangiocarcinoma and this causes prominent intrahepatic biliary ductal dilatation of both the left and right intrahepatic biliary ducts with central loss of signal at the area of the mass. CT and MRI- REVIEWED TUMOR MARKERS : ca 19-9 1420 , c/w to tumor progression hepatobiliary consult noted- D/W Kt TRAORE POST drain placement in the right lobe of the liver- c/w abscess POST stenting across the anastomosis with IR. PTBD LFT - noted pt is a candidate for local treatment - per DR Vazquez 2. Obstructive jaundice. Stable, ro stricture/recurrent tumor. MRCP/GI eval, hepatobiliary surgery consult- REVIEWED surgical f-up Dr Anderson noted POST biliary drainage by interventional radiology 3. Chronic Crohn's disease status post total proctocolectomy with J-pouch creation 2005. 4. Chronic primary sclerosing cholangitis w cholangiocarcinoma. Needs advanced care planning evaluated. Poor prognosis. Performance status questionable at this time for chemotherapy & bilirubin needs some improvement. 5. Malnutrition; oral feeds/Megace vs TPN 6. Active pouchitis? 7. Postop day 16 bd excision w cholecystectomy, excision of extrahepatic cbd and Isabell-en-Y hepaticojejunostomy. 8. Failure to thrive, may need snf 9. Anemia- WILL TRANSFUSE PRBC PRN 10. Reactive thrombocytosis 11. Dyslipidemia. POOR PS agree with transfer to SNF Hospice consult now on hold. Problems: Consultation Date/Type/Reason Admit Date/Time March 30, 2017 at 18:53 Initial Consult Date 03/31/17 [facility] Referring Provider: HUMZA JAIME MD 24 HR Interval Summary Free Text/Dictation No acute events overnight. Pt with some pain symptoms. Exam/Review of Systems Vital Signs Vitals Vital Signs Date Time Temp Pulse Resp B/P Pulse Ox O2 Delivery O2 Flow Rate FiO2 04/27/17 07:30 98.2 65 16 109/66 97 04/24/17 16:40 Room Air Intake and Output 04/26/17 04/26/17 04/27/17 15:00 23:00 07:00 Intake Total 600 ml Output Total 60 ml 30 ml Balance -60 ml 570 ml Exam Exam GENERAL: frail-looking male patient lying in bed in no apparent distress, alert. HEENT: Head normocephalic and atraumatic. Eyes: Anicteric sclerae. Conjunctivae clear. ENT: Nasal septum is midline. Oral mucosa is dry. NECK: Supple. No JVD noticed. RESPIRATORY: Bilaterally clear to auscultation. No adventitious breath sounds. No use of accessory muscles of respiration. CARDIAC: Regular rate and rhythm with a systolic murmur. ABDOMEN: Soft and nondistended. Incisions clean, dry and intact. biliary drains in place EXTREMITIES: No cyanosis, no clubbing, no edema. NEUROLOGIC: The patient is awake, alert and oriented. Cranial nerves are grossly intact. Results Result Diagram: 04/27/17 0935 04/27/17 0935 Results 24 hrs Laboratory Tests Test 04/27/17 09:35 White Blood Count 7.9 Red Blood Count 3.33 L Hemoglobin 10.3 L Hematocrit 32.7 L Mean Corpuscular Volume 98.2 Mean Corpuscular Hemoglobin 30.9 Mean Corpuscular Hemoglobin Concent 31.5 L Red Cell Distribution Width 20.1 H Platelet Count 423 H Mean Platelet Volume 9.2 Neutrophils % 72.7 Lymphocytes % 14.3 L Monocytes % 10.0 Eosinophils % 2.1 Basophils % 0.4 Nucleated Red Blood Cells % 0.0 Neutrophils # 5.8 Lymphocytes # 1.1 Monocytes # 0.8 Eosinophils # 0.2 Basophils # 0.0 Nucleated Red Blood Cells # 0.0 Sodium Level 138 Potassium Level 3.8 Chloride Level 103 Carbon Dioxide Level 28 Anion Gap 11 Blood Urea Nitrogen 11 Creatinine 0.59 L Glucose Level 86 Calcium Level 8.8 Medications Medications Current Medications Ondansetron HCl (Zofran Inj) 4 mg Q6H PRN IV NAUSEA AND/OR VOMITING; Start at 19:30 Acetaminophen (Tylenol Tab) 650 mg Q6H PRN PO PAIN LEVEL 1-3 OR FEVER; Start at 19:30 Docusate Sodium (Colace) 100 mg Q12H PRN PO CONSTIPATION; Start 03/30/17 at 19: 30 Magnesium Hydroxide (Milk Of Mag) 30 ml DAILY PRN PO CONSTIPATION; Start at 19:30 Sodium Biphosphate/ Sodium Phosphate (Fleet Enema) [address] CONSTIPATION; Start 03/30/17 at 19:30 Pantoprazole (Protonix Iv) 40 mg DAILY@06 IV Last administered on 04/27/17 06: 22; Admin Dose 40 MG; Start 03/31/17 at 06:00 Hydralazine HCl (Apresoline) 10 mg Q6H PRN IV ELEVATED BLOOD PRESSURE; Start at 19:30 Nitroglycerin (Nitroglycerin (Sl Tab) 0.4 Mg) 1 tab Q5M PRN SL ANGINA; Start at 19:30 Escitalopram Oxalate (Lexapro) 20 mg DAILY PO Last administered on 04/27/17 09 :30; Admin Dose 20 MG; Start 04/11/17 at 09:00 Nystatin (Nystatin Susp) 5 ml QID PO Last administered on 04/27/17 16:16; Admin Dose 5 ML; Start 04/13/17 at 18:00 Potassium Chloride (Klor-Con 10) 10 meq BID@08,18 PO Last administered on 16:16; Admin Dose 10 MEQ; Start 04/17/17 at 08:00 Metronidazole (Flagyl) 500 mg Q8H PO Last administered on 04/27/17 16:16; Admin Dose 500 MG; Start 04/22/17 at 08:00 Levofloxacin (Levaquin) 500 mg DAILY@06 PO Last administered on 04/27/17 06:22 ; Admin Dose 500 MG; Start 04/22/17 at 09:00 Lidocaine (Lidocaine 5% Oint) 1 applic QID PRN TOP PAIN Last administered on 12:16; Admin Dose 1 APPLIC; Start 04/22/17 at 09:30 Hydromorphone HCl (Dilaudid) 2 mg Q6H PRN PO PAIN Last administered on 13:51; Admin Dose 2 MG; Start 04/24/17 at 11:00 KIN ESTEBAN MD Apr 27, 2017 19:04
--- NOTE | 2017-04-27 19:14 | CONS ---
Date/Time of Note Date/Time of Note DATE: 04/27/17 TIME: 19:13 Assessment/Plan Assessment/Plan Chief Complaint/Hosp Course SUBJECTIVE: No acute events, alert, looks comfortable, friends at bedside ANTIMICROBIALS: Levaquin, Flagyl MICROBIOLOGY: Intra-abdominal fluid culture growing Klebsiella pneumoniae and Bacteroides fragilis. INDWELLINGS: The patient has two intra-abdominal drainages. PHYSICAL EXAMINATION: GENERAL: This is a well-developed, elderly, cachectic man who is alert, in no distress. HEENT: Head atraumatic, normocephalic. Sclerae anicteric. Buccal mucosa dry. NECK: Supple, trachea midline. CHEST: Rise symmetrical. Breath sounds clear, diminished to bases. HEART: S1, S2. ABDOMEN: Soft, bowel tones present. EXTREMITIES: Without cyanosis. ASSESSMENT: 1. Systemic inflammatory response syndrome===> s/p leukocytosis, secondary to intra-abdominal process, possibly also steroid induced. 2. Biliary obstruction status post fluoroscopic-guided biliary drainage catheter placement with exchange on 04/12/2017. 3. Metastatic cholangiocarcinoma to lymph nodes and liver. 5. History of primary sclerosing cholangitis since 2008. 6. Cachexia. PLAN: Clinically stable, as per surgical rec-s will dc abx and observe DW RN Problems: Consultation Date/Type/Reason Admit Date/Time March 30, 2017 at 18:53 Initial Consult Date 03/31/17 Type of Consultation: ID Referring Provider: HUMZA JAIME MD Exam/Review of Systems Vital Signs Vitals Vital Signs Date Time Temp Pulse Resp B/P Pulse Ox O2 Delivery O2 Flow Rate FiO2 04/27/17 07:30 98.2 65 16 109/66 97 04/24/17 16:40 Room Air Intake and Output 04/26/17 04/26/17 04/27/17 15:00 23:00 07:00 Intake Total 600 ml Output Total 60 ml 30 ml Balance -60 ml 570 ml Results Result Diagram: 04/27/17 0935 04/27/17 0935 Results 24 hrs Laboratory Tests Test 04/27/17 09:35 White Blood Count 7.9 Red Blood Count 3.33 L Hemoglobin 10.3 L Hematocrit 32.7 L Mean Corpuscular Volume 98.2 Mean Corpuscular Hemoglobin 30.9 Mean Corpuscular Hemoglobin Concent 31.5 L Red Cell Distribution Width 20.1 H Platelet Count 423 H Mean Platelet Volume 9.2 Neutrophils % 72.7 Lymphocytes % 14.3 L Monocytes % 10.0 Eosinophils % 2.1 Basophils % 0.4 Nucleated Red Blood Cells % 0.0 Neutrophils # 5.8 Lymphocytes # 1.1 Monocytes # 0.8 Eosinophils # 0.2 Basophils # 0.0 Nucleated Red Blood Cells # 0.0 Sodium Level 138 Potassium Level 3.8 Chloride Level 103 Carbon Dioxide Level 28 Anion Gap 11 Blood Urea Nitrogen 11 Creatinine 0.59 L Glucose Level 86 Calcium Level 8.8 Medications Medications Current Medications Ondansetron HCl (Zofran Inj) 4 mg Q6H PRN IV NAUSEA AND/OR VOMITING; Start at 19:30 Acetaminophen (Tylenol Tab) 650 mg Q6H PRN PO PAIN LEVEL 1-3 OR FEVER; Start at 19:30 Docusate Sodium (Colace) 100 mg Q12H PRN PO CONSTIPATION; Start 03/30/17 at 19: 30 Magnesium Hydroxide (Milk Of Mag) 30 ml DAILY PRN PO CONSTIPATION; Start at 19:30 Sodium Biphosphate/ Sodium Phosphate (Fleet Enema) 133 ml DAILY PRN [place] CONSTIPATION; Start 03/30/17 at 19:30 Pantoprazole (Protonix Iv) 40 mg DAILY@06 IV Last administered on 04/27/17 06: 22; Admin Dose 40 MG; Start 03/31/17 at 06:00 Hydralazine HCl (Apresoline) 10 mg Q6H PRN IV ELEVATED BLOOD PRESSURE; Start at 19:30 Nitroglycerin (Nitroglycerin (Sl Tab) 0.4 Mg) 1 tab Q5M PRN SL ANGINA; Start at 19:30 Escitalopram Oxalate (Lexapro) 20 mg DAILY PO Last administered on 04/27/17 09 :30; Admin Dose 20 MG; Start 04/11/17 at 09:00 Nystatin (Nystatin Susp) 5 ml QID PO Last administered on 04/27/17 16:16; Admin Dose 5 ML; Start 04/13/17 at 18:00 Potassium Chloride (Klor-Con 10) 10 meq BID@08,18 PO Last administered on 16:16; Admin Dose 10 MEQ; Start 04/17/17 at 08:00 Metronidazole (Flagyl) 500 mg Q8H PO Last administered on 04/27/17 16:16; Admin Dose 500 MG; Start 04/22/17 at 08:00 Levofloxacin (Levaquin) 500 mg DAILY@06 PO Last administered on 04/27/17 06:22 ; Admin Dose 500 MG; Start 04/22/17 at 09:00 Lidocaine (Lidocaine 5% Oint) 1 applic QID PRN TOP PAIN Last administered on 12:16; Admin Dose 1 APPLIC; Start 04/22/17 at 09:30 Hydromorphone HCl (Dilaudid) 2 mg Q6H PRN PO PAIN Last administered on 13:51; Admin Dose 2 MG; Start 04/24/17 at 11:00 DEBRA GILL NP Apr 27, 2017 19:14
[2017-04-27 20:00] VITALS: BP 125/72; RESP 19
[2017-04-28 05:56] LABS: ADD SCAN DIFF NO
[2017-04-28 06:15] LABS: BASOPHILS % 0.4 % (0.0-2.0); EOSINOPHILS # 0.2 10^3/ul (0.0-0.5); EOSINOPHILS % 2.4 % (0.0-7.0); HEMOGLOBIN 10.7 g/dl (14.0-18.0); LYMPHOCYTES # 1.5 10^3/ul (0.8-2.9); LYMPHOCYTES % 18.5 % (15.0-51.0); MEAN CORPUSCULAR HEMOGLOBIN 30.5 pg (29.0-33.0); MEAN CORPUSCULAR HGB CONC 31.5 g/dl (32.0-37.0); MEAN CORPUSCULAR VOLUME 96.9 fl (82.0-101.0); MEAN PLATELET VOLUME 9.4 fl (7.4-10.4); MONOCYTES % 11.6 % (0.0-11.0); NEUTROPHIL # 5.6 10^3/ul (1.6-7.5); NEUTROPHILS % 66.7 % (39.0-77.0); PLATELET COUNT 458 10^3/UL (140-415); RED BLOOD COUNT 3.51 10^6/ul (4.70-6.10); RED CELL DISTRIBUTION WIDTH 19.9 % (11.5-14.5); WHITE BLOOD COUNT 8.3 10^3/ul (4.8-10.8)
[2017-04-28] MEDS: PANTOPRAZOLE 40 MG INJ IV SCH (06:25)
[2017-04-28 06:46] LABS: CALCIUM 9.2 mg/dl (8.4-10.2); CREATININE 0.54 mg/dl (0.61-1.24); POTASSIUM 3.8 mmol/L (3.5-5.1)
[2017-04-28] MEDS: NYSTATIN SUSP 5 ML CUP PO SCH ×3 (09:00→17:48)
[2017-04-28 10:43] VITALS: BP 109/69; RESP 20
[2017-04-28] MEDS: HYDROmorphONE 2 MG TAB PO PRN ×2 (10:44→17:08)
[2017-04-28] MEDS: ESCITALOPRAM 10 MG TAB PO SCH ×2 (10:45→12:35)
[2017-04-28] MEDS: POTASSIUM CHLORIDE (SR) 10 MEQ TAB PO SCH ×2 (12:35→17:48)
--- NOTE | 2017-04-28 13:05 | PN ---
Date/Time of Note Date/Time of Note DATE: 04/28/17 TIME: 13:04 Assessment/Plan Lines/Catheters IV Catheter Type (from Rust): Saline Lock Andrews in Place (from Rust): No Assessment/Plan Assessment/Plan [facility] Progress Note Date of Service: 04/28/17 Today's Impression & Plan: Overall stable. No new issues. Awaiting SNF bed. With above assessment, I've recommended the following for today: 1. Continued aggressive medical management 2. Aggressive nutritional support with increased oral intake. 3. Labs in am including LFT's 4. R biliary drain to gravity drainage 5. L biliary drain to remain capped 6. Flush both biliary drains with 10 cc NS BID (very important to be taught to patient, family and to the next level of care nurses) 7. Discontinue antimicrobials 8. Assisted activity with education on how to deal with his back 9. F/u on culture results and do more cultures if indicated clinically (still at risk for ongoing cholangitis, UTI, pneumonia, etc.) 10. Ongoing plans for SNF placement Thank you again for your great care of this very pleasant patient and wonderful family. If there are any questions, please feel free to call me at [phone]. TOTAL VISIT TIME: 20 minutes of which more than half was spent in [id number] discussion with the patient, possibly including family, as well as coordination of care between multiple physicians and providers. Disclaimer: Inadvertent spelling or grammatical errors are likely due to EHR/ dictation software use and do not reflect on the overall quality of patient care. Updated clinical summary: A very pleasant 61-year-old gentleman with significant past medical history including ulcerative colitis status post total proctocolectomy and ileoanal pouch as well as a number of other medical issues who was diagnosed with cholangiocarcinoma and underwent a radical bile duct resection that included extrahepatic bile duct and gallbladder at [facility], 2016, with final diagnosis of cholangiocarcinoma with 1/8 lymph node positive disease as well as low-grade dysplasia and carcinoma in situ at the proximal margin. The patient was readmitted to [facility] after a 2 month hospital stay at [facility] with increasing weakness, jaundice, and diffuse body pain. S/p perc drainage of right biliary system 04/03/17. : s/p placement of left biliary drain which traverses patient's anastomosis on that side. Right system has a tight anastomosis that could not be traversed. R biliary drain upsized 04/12/17. L biliary drain capped . COMORBIDITIES: 1. History of ulcerative colitis status post total proctocolectomy and ileoanal pouch. 2. Diagnosis of primary sclerosing cholangitis since 2008 being cared for at various institutions such as [facility] and by various physicians with involvement of Dr. Krystian Adkins for hepatology. 3. History of hospitalization at [facility] for bile duct obstruction from mid December to early March with bile duct excision with cholecystectomy with removal of extrahepatic bile duct and Isabell-en-Y hepaticojejunostomy on 07/2017 with the above-mentioned pathology. 4. Chronic back pain, mainly lower, for the last 5 to 6 years. 5. Significant weight loss of more than 20 to 30 pounds over the last 6 months. 6. No history of lymphoma (note that this was reported erroneously in the patient's chart. The patient does not report any history of lymphoma in the past and that is also corroborated by the patient's family). 7. Status post multiple ERCPs and stenting in the past since 2005. 8. Elevated alpha fetoprotein 1.8 in 12/2016. 9. Elevated CA19-9 of 272.9 in 12/2016. 10. Normal CEA at 1.6 on 01/14/2017. 11. Status post sigmoidoscopy, 01/16/2017, showing moderate pouchitis and negative for dysplasia or malignancy. 12. S/p perc drainage of right biliary system 04/03/17. 13. 04/09/17: s/p placement of left biliary drain which traverses patient's anastomosis on that side. Right system has a tight anastomosis that could not be traversed. 14. Compression fracture 04/10/17 Subjective: No major events or complaints; no abd pain and under control with medications; no n/v/d; no sob or cp; + flatus; + BM and normal for him; + activity. Generally in good spirits. Objective: Vitals: See below Exam: GENERAL: On exam, the patient was laying in bed and appeared to be comfortable and in no acute distress. ABDOMEN: Soft, nontender, and nondistended. Incisions are clean, dry and intact without any evidence of erythema, edema, discharge, or hernia. R biliary drains bilious. L biliary drain capped. SKIN: Skin appears to be pink and feels warm to touch. NEUROLOGIC: Patient was awake, alert, and followed commands appropriately. Exam/Review of Systems Vital Signs Vitals Vital Signs Date Time Temp Pulse Resp B/P Pulse Ox O2 Delivery O2 Flow Rate FiO2 04/28/17 10:43 97.7 62 20 109/69 98 04/24/17 16:40 Room Air Intake and Output 04/27/17 04/27/17 04/28/17 15:00 23:00 07:00 Intake Total 750 ml 240 ml Output Total 50 ml 675 ml Balance 700 ml -435 ml Results Result Diagram: 04/28/17 0520 04/28/17 0520 ZOE GOYAL M.D. Apr 28, 2017 13:05
--- NOTE | 2017-04-28 16:23 | PN ---
Date/Time of Note Date/Time of Note DATE: 04/28/17 TIME: 16:21 Assessment/Plan VTE Prophylaxis VTE Prophylaxis Intervention: SCD's Lines/Catheters IV Catheter Type (from Nrs): Saline Lock Urinary Cath still in place: No Assessment/Plan Chief Complaint/Hosp Course A/P: 61 M with: 1. Metastatic cholangiocarcinoma with metastasis to the liver and lymph nodes. Status post cholecystectomy and excision of hepatic common bile duct with Isabell -en-Y hepaticojejunostomy on 01/24/2017. The patient being followed by oncology and hepatobiliary team. Poor prognosis. Biliary drains in place, one is capped. - continue current care including pain control - off WHEEL CUTTER pump - f/u heme/Onc and surgery rec's - pt would benefit from SNF placement and close Heme/onc and surgery follow up, as mass may be amenable to further tx in outpt setting (per discussion with surgery team) - CM actively working on this. 2. History of Crohn's disease status post a proctocolectomy with J-pouch creation in 2005 - monitor 3. History of chronic primary sclerosing cholangitis - monitor 4. Sinus bradycardia, asymptomatic. Cardiology following - HR improved - monitor 5. Chronic back pain. Lumbar spine CT showing osteopenia with mild L2 compression fracture. Continue on analgesics, including dilaudid PO prn for now 6. Protein calorie malnutrition. Severe. Dietary supplements. 7. Normocytic normochromic anemia, most probably anemia of chronic disease. Monitor H and H closely. 8. Depression. Continue Lexapro. 9. Status post placement of left biliary drain on 04/09/2017. Continue management as per surgery. 10. Status post placement of a right biliary drain on 03/24/2017, management as per surgery. On antibiotics as per infectious disease. 11. Fluid, electrolytes and nutrition. Soft diet. 11. DVT prophylaxis with bilateral sequential compression devices. 12. Gastrointestinal prophylaxis. Proton pump inhibitors intervention planned. Plan. Continue current management. Plan is to discharge the patient to long-term facility when available - CM actively working on this. Problems: Subjective 24 Hr Interval Summary Free Text/Dictation Less pain today, still waiting for PT eval, no acute events overnight. Exam/Review of Systems Vital Signs Vitals Vital Signs Date Time Temp Pulse Resp B/P Pulse Ox O2 Delivery O2 Flow Rate FiO2 04/28/17 10:43 97.7 62 20 109/69 98 6/7/17 16:40 Room Air Intake and Output 04/27/17 04/27/17 04/28/17 15:00 23:00 07:00 Intake Total 750 ml 240 ml Output Total 50 ml 675 ml Balance 700 ml -435 ml Exam GENERAL: frail-looking male patient lying in bed in no apparent distress, alert. HEENT: Head normocephalic and atraumatic. Eyes: Anicteric sclerae. Conjunctivae clear. ENT: Nasal septum is midline. Oral mucosa is dry. NECK: Supple. No JVD noticed. RESPIRATORY: Bilaterally clear to auscultation. No adventitious breath sounds. No use of accessory muscles of respiration. CARDIAC: Regular rate and rhythm with a systolic murmur. ABDOMEN: Soft and nondistended. Incisions clean, dry and intact. biliary drains in place EXTREMITIES: No cyanosis, no clubbing, no edema. NEUROLOGIC: The patient is awake, alert and oriented. Cranial nerves are grossly intact. Results Result Diagram: 04/28/17 0520 04/28/17 0520 Results 24 hrs Laboratory Tests Test 04/28/17 05:20 White Blood Count 8.3 Red Blood Count 3.51 L Hemoglobin 10.7 L Hematocrit 34.0 L Mean Corpuscular Volume 96.9 Mean Corpuscular Hemoglobin 30.5 Mean Corpuscular Hemoglobin Concent 31.5 L Red Cell Distribution Width 19.9 H Platelet Count 458 H Mean Platelet Volume 9.4 Neutrophils % 66.7 Lymphocytes % 18.5 Monocytes % 11.6 H Eosinophils % 2.4 Basophils % 0.4 Nucleated Red Blood Cells % 0.0 Neutrophils # 5.6 Lymphocytes # 1.5 Monocytes # 1.0 H Eosinophils # 0.2 Basophils # 0.0 Nucleated Red Blood Cells # 0.0 Sodium Level 140 Potassium Level 3.8 Chloride Level 104 Carbon Dioxide Level 27 Anion Gap 13 Blood Urea Nitrogen 9 Creatinine 0.54 L Glucose Level 82 Calcium Level 9.2 Medications Medications Current Medications Ondansetron HCl (Zofran Inj) 4 mg Q6H PRN IV NAUSEA AND/OR VOMITING; Start at 19:30 Acetaminophen (Tylenol Tab) 650 mg Q6H PRN PO PAIN LEVEL 1-3 OR FEVER; Start at 19:30 Docusate Sodium (Colace) 100 mg Q12H PRN PO CONSTIPATION; Start 03/30/17 at 19: 30 Magnesium Hydroxide (Milk Of Mag) 30 ml DAILY PRN PO CONSTIPATION; Start at 19:30 Sodium Biphosphate/ Sodium Phosphate (Fleet Enema) 133 ml DAILY PRN [place] CONSTIPATION; Start 03/30/17 at 19:30 Pantoprazole (Protonix Iv) 40 mg DAILY@06 IV Last administered on 04/28/17 06: 25; Admin Dose 40 MG; Start 03/31/17 at 06:00 Hydralazine HCl (Apresoline) 10 mg Q6H PRN IV ELEVATED BLOOD PRESSURE; Start at 19:30 Nitroglycerin (Nitroglycerin (Sl Tab) 0.4 Mg) 1 tab Q5M PRN SL ANGINA; Start at 19:30 Escitalopram Oxalate (Lexapro) 20 mg DAILY PO Last administered on 04/28/17 12 :35; Admin Dose 20 MG; Start 04/11/17 at 09:00 Nystatin (Nystatin Susp) 5 ml QID PO Last administered on 04/28/17 09:00; Admin Dose 5 ML; Start 04/13/17 at 18:00 Potassium Chloride (Klor-Con 10) 10 meq BID@08,18 PO Last administered on 12:35; Admin Dose 10 MEQ; Start 04/17/17 at 08:00 Lidocaine (Lidocaine 5% Oint) 1 applic QID PRN TOP PAIN Last administered on 12:16; Admin Dose 1 APPLIC; Start 04/22/17 at 09:30 Hydromorphone HCl (Dilaudid) 2 mg Q6H PRN PO PAIN Last administered on 10:44; Admin Dose 2 MG; Start 04/24/17 at 11:00 ORION GUILLEN Apr 28, 2017 16:23
--- NOTE | 2017-04-28 19:42 | CONS ---
Date/Time of Note Date/Time of Note DATE: 04/28/17 TIME: 19:41 Assessment/Plan Assessment/Plan Chief Complaint/Hosp Course SUBJECTIVE: No acute events MICROBIOLOGY: Intra-abdominal fluid culture grew Klebsiella pneumoniae and Bacteroides fragilis===> treated. INDWELLINGS: The patient has two intra-abdominal drainages. PHYSICAL EXAMINATION: GENERAL: This is a well-developed, elderly, cachectic man who is alert, in no distress. HEENT: Head atraumatic, normocephalic. Sclerae anicteric. Buccal mucosa dry. NECK: Supple, trachea midline. CHEST: Rise symmetrical. Breath sounds clear, diminished to bases. HEART: S1, S2. ABDOMEN: Soft, bowel tones present. EXTREMITIES: Without cyanosis. ASSESSMENT: 1. Systemic inflammatory response syndrome===> s/p leukocytosis, secondary to intra-abdominal process, possibly also steroid induced. 2. Biliary obstruction status post fluoroscopic-guided biliary drainage catheter placement with exchange on 04/12/2017. 3. Metastatic cholangiocarcinoma to lymph nodes and liver. 5. History of primary sclerosing cholangitis since 2008. 6. Cachexia. PLAN: Clinically stable, off abx, awaiting SNF placement PAIGE RN Problems: Consultation Date/Type/Reason Admit Date/Time March 30, 2017 at 18:53 Initial Consult Date 03/31/17 Type of Consultation: ID Referring Provider: HUMZA JAIME MD Exam/Review of Systems Vital Signs Vitals Vital Signs Date Time Temp Pulse Resp B/P Pulse Ox O2 Delivery O2 Flow Rate FiO2 04/28/17 10:43 97.7 62 20 109/69 98 04/24/17 16:40 Room Air Intake and Output 04/27/17 04/27/17 04/28/17 15:00 23:00 07:00 Intake Total 750 ml 240 ml Output Total 50 ml 675 ml Balance 700 ml -435 ml Results Result Diagram: 04/28/17 0520 04/28/17 0520 Results 24 hrs Laboratory Tests Test 04/28/17 05:20 White Blood Count 8.3 Red Blood Count 3.51 L Hemoglobin 10.7 L Hematocrit 34.0 L Mean Corpuscular Volume 96.9 Mean Corpuscular Hemoglobin 30.5 Mean Corpuscular Hemoglobin Concent 31.5 L Red Cell Distribution Width 19.9 H Platelet Count 458 H Mean Platelet Volume 9.4 Neutrophils % 66.7 Lymphocytes % 18.5 Monocytes % 11.6 H Eosinophils % 2.4 Basophils % 0.4 Nucleated Red Blood Cells % 0.0 Neutrophils # 5.6 Lymphocytes # 1.5 Monocytes # 1.0 H Eosinophils # 0.2 Basophils # 0.0 Nucleated Red Blood Cells # 0.0 Sodium Level 140 Potassium Level 3.8 Chloride Level 104 Carbon Dioxide Level 27 Anion Gap 13 Blood Urea Nitrogen 9 Creatinine 0.54 L Glucose Level 82 Calcium Level 9.2 Medications Medications Current Medications Ondansetron HCl (Zofran Inj) 4 mg Q6H PRN IV NAUSEA AND/OR VOMITING; Start at 19:30 Acetaminophen (Tylenol Tab) 650 mg Q6H PRN PO PAIN LEVEL 1-3 OR FEVER; Start at 19:30 Docusate Sodium (Colace) 100 mg Q12H PRN PO CONSTIPATION; Start 03/30/17 at 19: 30 Magnesium Hydroxide (Milk Of Mag) 30 ml DAILY PRN PO CONSTIPATION; Start at 19:30 Sodium Biphosphate/ Sodium Phosphate (Fleet Enema) 133 ml DAILY PRN [place] CONSTIPATION; Start 03/30/17 at 19:30 Pantoprazole (Protonix Iv) 40 mg DAILY@06 IV Last administered on 04/28/17 06: 25; Admin Dose 40 MG; Start 03/31/17 at 06:00 Hydralazine HCl (Apresoline) 10 mg Q6H PRN IV ELEVATED BLOOD PRESSURE; Start at 19:30 Nitroglycerin (Nitroglycerin (Sl Tab) 0.4 Mg) 1 tab Q5M PRN SL ANGINA; Start at 19:30 Escitalopram Oxalate (Lexapro) 20 mg DAILY PO Last administered on 04/28/17 12 :35; Admin Dose 20 MG; Start 04/11/17 at 09:00 Nystatin (Nystatin Susp) 5 ml QID PO Last administered on 04/28/17 17:48; Admin Dose 5 ML; Start 04/13/17 at 18:00 Potassium Chloride (Klor-Con 10) 10 meq BID@08,18 PO Last administered on 17:48; Admin Dose 10 MEQ; Start 04/17/17 at 08:00 Lidocaine (Lidocaine 5% Oint) 1 applic QID PRN TOP PAIN Last administered on 12:16; Admin Dose 1 APPLIC; Start 04/22/17 at 09:30 Hydromorphone HCl (Dilaudid) 2 mg Q6H PRN PO PAIN Last administered on 17:08; Admin Dose 2 MG; Start 04/24/17 at 11:00 DEBRA GILL NP Apr 28, 2017 19:42
[2017-04-28 20:00] VITALS: BP 112/70; RESP 18
--- NOTE | 2017-04-28 23:08 | CONS ---
Date/Time of Note Date/Time of Note DATE: 04/28/17 TIME: 23:07 Assessment/Plan Assessment/Plan Chief Complaint/Hosp Course 1. 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 postop , NOW WITH Metastatic dis in the liver lobular area of elevated T2 signal is seen in the central liver worrisome for a mass possibly cholangiocarcinoma and this causes prominent intrahepatic biliary ductal dilatation of both the left and right intrahepatic biliary ducts with central loss of signal at the area of the mass. CT and MRI- REVIEWED TUMOR MARKERS : ca 19-9 [id number] , c/w to tumor progression hepatobiliary consult noted- D/W Kt TRAORE POST drain placement in the right lobe of the liver- c/w abscess POST stenting across the anastomosis with IR. PTBD LFT - noted pt is a candidate for local treatment - per DR Vazquez 2. Obstructive jaundice. Stable, ro stricture/recurrent tumor. MRCP/GI eval, hepatobiliary surgery consult- REVIEWED surgical f-up Dr Anderson noted POST biliary drainage by interventional radiology 3. Chronic Crohn's disease status post total proctocolectomy with J-pouch creation 2005. 4. Chronic primary sclerosing cholangitis w cholangiocarcinoma. Needs advanced care planning evaluated. Poor prognosis. Performance status questionable at this time for chemotherapy & bilirubin needs some improvement. 5. Malnutrition; oral feeds/Megace vs TPN 6. Active pouchitis? 7. Postop day 16 bd excision w cholecystectomy, excision of extrahepatic cbd and Isabell-en-Y hepaticojejunostomy. 8. Failure to thrive, may need snf 9. Anemia- WILL TRANSFUSE PRBC PRN 10. Reactive thrombocytosis 11. Dyslipidemia. POOR PS agree with transfer to SNF Hospice consult now on hold. Problems: Consultation Date/Type/Reason Admit Date/Time March 30, 2017 at 18:53 Initial Consult Date 03/31/17 Type of Consultation: [facility] Referring Provider: HUMZA JAIME MD 24 HR Interval Summary Free Text/Dictation Less pain today, no acute events overnight. Exam/Review of Systems Vital Signs Vitals Vital Signs Date Time Temp Pulse Resp B/P Pulse Ox O2 Delivery O2 Flow Rate FiO2 04/28/17 20:00 98.9 78 18 112/70 98 04/24/17 16:40 Room Air Intake and Output 04/27/17 04/27/17 04/28/17 15:00 23:00 07:00 Intake Total 750 ml 240 ml Output Total 50 ml 675 ml Balance 700 ml -435 ml Exam Exam GENERAL: frail-looking male patient lying in bed in no apparent distress, alert. HEENT: Head normocephalic and atraumatic. Eyes: Anicteric sclerae. Conjunctivae clear. ENT: Nasal septum is midline. Oral mucosa is dry. NECK: Supple. No JVD noticed. RESPIRATORY: Bilaterally clear to auscultation. No adventitious breath sounds. No use of accessory muscles of respiration. CARDIAC: Regular rate and rhythm with a systolic murmur. ABDOMEN: Soft and nondistended. Incisions clean, dry and intact. biliary drains in place EXTREMITIES: No cyanosis, no clubbing, no edema. NEUROLOGIC: The patient is awake, alert and oriented. Cranial nerves are grossly intact. Results Result Diagram: 04/28/17 0520 04/28/17 0520 Results 24 hrs Laboratory Tests Test 04/28/17 05:20 White Blood Count 8.3 Red Blood Count 3.51 L Hemoglobin 10.7 L Hematocrit 34.0 L Mean Corpuscular Volume 96.9 Mean Corpuscular Hemoglobin 30.5 Mean Corpuscular Hemoglobin Concent 31.5 L Red Cell Distribution Width 19.9 H Platelet Count 458 H Mean Platelet Volume 9.4 Neutrophils % 66.7 Lymphocytes % 18.5 Monocytes % 11.6 H Eosinophils % 2.4 Basophils % 0.4 Nucleated Red Blood Cells % 0.0 Neutrophils # 5.6 Lymphocytes # 1.5 Monocytes # 1.0 H Eosinophils # 0.2 Basophils # 0.0 Nucleated Red Blood Cells # 0.0 Sodium Level 140 Potassium Level 3.8 Chloride Level 104 Carbon Dioxide Level 27 Anion Gap 13 Blood Urea Nitrogen 9 Creatinine 0.54 L Glucose Level 82 Calcium Level 9.2 Medications Medications Current Medications Ondansetron HCl (Zofran Inj) 4 mg Q6H PRN IV NAUSEA AND/OR VOMITING; Start at 19:30 Acetaminophen (Tylenol Tab) 650 mg Q6H PRN PO PAIN LEVEL 1-3 OR FEVER; Start at 19:30 Docusate Sodium (Colace) 100 mg Q12H PRN PO CONSTIPATION; Start 03/30/17 at 19: 30 Magnesium Hydroxide (Milk Of Mag) 30 ml DAILY PRN PO CONSTIPATION; Start at 19:30 Sodium Biphosphate/ Sodium Phosphate (Fleet Enema) 133 ml DAILY PRN [place] CONSTIPATION; Start 03/30/17 at 19:30 Pantoprazole (Protonix Iv) 40 mg DAILY@06 IV Last administered on 04/28/17 06: 25; Admin Dose 40 MG; Start 03/31/17 at 06:00 Hydralazine HCl (Apresoline) 10 mg Q6H PRN IV ELEVATED BLOOD PRESSURE; Start at 19:30 Nitroglycerin (Nitroglycerin (Sl Tab) 0.4 Mg) 1 tab Q5M PRN SL ANGINA; Start at 19:30 Escitalopram Oxalate (Lexapro) 20 mg DAILY PO Last administered on 04/28/17 12 :35; Admin Dose 20 MG; Start 04/11/17 at 09:00 Nystatin (Nystatin Susp) 5 ml QID PO Last administered on 04/28/17 17:48; Admin Dose 5 ML; Start 04/13/17 at 18:00 Potassium Chloride (Klor-Con 10) 10 meq BID@08,18 PO Last administered on 17:48; Admin Dose 10 MEQ; Start 04/17/17 at 08:00 Lidocaine (Lidocaine 5% Oint) 1 applic QID PRN TOP PAIN Last administered on 12:16; Admin Dose 1 APPLIC; Start 04/22/17 at 09:30 Hydromorphone HCl (Dilaudid) 2 mg Q6H PRN PO PAIN Last administered on 17:08; Admin Dose 2 MG; Start 04/24/17 at 11:00 KIN ESTEBAN MD Apr 28, 2017 23:08
[2017-04-29] MEDS: NYSTATIN SUSP 5 ML CUP PO SCH ×5 (00:48→21:48)
[2017-04-29] MEDS: HYDROmorphONE 2 MG TAB PO PRN ×2 (00:48→20:42)
[2017-04-29] MEDS: PANTOPRAZOLE 40 MG INJ IV SCH (05:55)
[2017-04-29 06:10] LABS: ADD SCAN DIFF NO
[2017-04-29 06:15] LABS: BASOPHILS % 0.4 % (0.0-2.0); EOSINOPHILS # 0.2 10^3/ul (0.0-0.5); EOSINOPHILS % 2.8 % (0.0-7.0); HEMATOCRIT 35.9 % (42.0-52.0); HEMOGLOBIN 11.3 g/dl (14.0-18.0); LYMPHOCYTES # 1.5 10^3/ul (0.8-2.9); LYMPHOCYTES % 17.8 % (15.0-51.0); MEAN CORPUSCULAR HEMOGLOBIN 30.7 pg (29.0-33.0); MEAN CORPUSCULAR HGB CONC 31.5 g/dl (32.0-37.0); MEAN CORPUSCULAR VOLUME 97.6 fl (82.0-101.0); MEAN PLATELET VOLUME 9.6 fl (7.4-10.4); MONOCYTES % 11.4 % (0.0-11.0); NEUTROPHIL # 5.7 10^3/ul (1.6-7.5); NEUTROPHILS % 67.1 % (39.0-77.0); PLATELET COUNT 529 10^3/UL (140-415); RED BLOOD COUNT 3.68 10^6/ul (4.70-6.10); WHITE BLOOD COUNT 8.5 10^3/ul (4.8-10.8)
[2017-04-29 06:51] LABS: CALCIUM 9.7 mg/dl (8.4-10.2); CREATININE 0.53 mg/dl (0.61-1.24); POTASSIUM 4.1 mmol/L (3.5-5.1)
[2017-04-29 07:51] VITALS: BP 102/67; RESP 20
[2017-04-29] MEDS: POTASSIUM CHLORIDE (SR) 10 MEQ TAB PO SCH ×2 (09:28→18:01)
--- NOTE | 2017-04-29 11:54 | PN ---
Date/Time of Note Date/Time of Note DATE: 04/29/17 TIME: 11:52 Assessment/Plan Lines/Catheters IV Catheter Type (from [facility]): Saline Lock Andrews in Place (from [facility]): No Assessment/Plan Assessment/Plan [facility] Progress Note Date of Service: 04/29/17 Today's Impression & Plan: Overall stable. No new issues. WBC normal for the last 5 days. Awaiting SNF bed. Discussed at length with patient and his ex- and answered all questions. With above assessment, I've recommended the following for today: 1. Continued aggressive medical management 2. Aggressive nutritional support with increased oral intake. 3. Labs in am including LFT's 4. R biliary drain to gravity drainage 5. L biliary drain to remain capped 6. Flush both biliary drains with 10 cc NS BID (very important to be taught to patient, family and to the next level of care nurses) 7. Cont. off antimicrobials 8. Assisted activity with education on how to deal with his back 9. F/u on culture results and do more cultures if indicated clinically (still at risk for ongoing cholangitis, UTI, pneumonia, etc.) 10. Ongoing plans for SNF placement Thank you again for your great care of this very pleasant patient and wonderful family. If there are any questions, please feel free to call me at [phone]. TOTAL VISIT TIME: 20 minutes of which more than half was spent in [id number] discussion with the patient, possibly including family, as well as coordination of care between multiple physicians and providers. Disclaimer: Inadvertent spelling or grammatical errors are likely due to EHR/ dictation software use and do not reflect on the overall quality of patient care. Updated clinical summary: A very pleasant 61-year-old gentleman with significant past medical history including ulcerative colitis status post total proctocolectomy and ileoanal pouch as well as a number of other medical issues who was diagnosed with cholangiocarcinoma and underwent a radical bile duct resection that included extrahepatic bile duct and gallbladder at [facility], 2016, with final diagnosis of cholangiocarcinoma with 1/8 lymph node positive disease as well as low-grade dysplasia and carcinoma in situ at the proximal margin. The patient was readmitted to [facility] after a [address] [facility] with increasing weakness, jaundice, and diffuse body pain. S/p perc drainage of right biliary system 04/03/17. : s/p placement of left biliary drain which traverses patient's anastomosis on that side. Right system has a tight anastomosis that could not be traversed. R biliary drain upsized 04/12/17. L biliary drain capped . COMORBIDITIES: 1. History of ulcerative colitis status post total proctocolectomy and ileoanal pouch. 2. Diagnosis of primary sclerosing cholangitis since 2008 being cared for at various institutions such as [facility] and by various physicians with involvement of Dr. Krystian Adkins for hepatology. 3. History of hospitalization at [facility] for bile duct obstruction from mid December to early March with bile duct excision with cholecystectomy with removal of extrahepatic bile duct and Isabell-en-Y hepaticojejunostomy on 07/2017 with the above-mentioned pathology. 4. Chronic back pain, mainly lower, for the last 5 to 6 years. 5. Significant weight loss of more than 20 to 30 pounds over the last 6 months. 6. No history of lymphoma (note that this was reported erroneously in the patient's chart. The patient does not report any history of lymphoma in the past and that is also corroborated by the patient's family). 7. Status post multiple ERCPs and stenting in the past since 2005. 8. Elevated alpha fetoprotein 1.8 in 12/2016. 9. Elevated CA19-9 of 272.9 in 12/2016. 10. Normal CEA at 1.6 on 01/14/2017. 11. Status post sigmoidoscopy, 01/16/2017, showing moderate pouchitis and negative for dysplasia or malignancy. 12. S/p perc drainage of right biliary system 04/03/17. 13. 04/09/17: s/p placement of left biliary drain which traverses patient's anastomosis on that side. Right system has a tight anastomosis that could not be traversed. 14. Compression fracture 04/10/17 Subjective: No major events or complaints; no abd pain and under control with medications; no n/v/d; no sob or cp; + flatus; + BM and normal for him; + activity. Generally in good spirits. Objective: Vitals: See below Exam: GENERAL: On exam, the patient was laying in bed and appeared to be comfortable and in no acute distress. ABDOMEN: Soft, nontender, and nondistended. Incisions are clean, dry and intact without any evidence of erythema, edema, discharge, or hernia. R biliary drains bilious. L biliary drain capped. SKIN: Skin appears to be pink and feels warm to touch. NEUROLOGIC: Patient was awake, alert, and followed commands appropriately. Exam/Review of Systems Vital Signs Vitals Vital Signs Date Time Temp Pulse Resp B/P Pulse Ox O2 Delivery O2 Flow Rate FiO2 04/29/17 07:51 98.7 61 20 102/67 98 Intake and Output 04/28/17 04/28/17 04/29/17 15:00 23:00 07:00 Intake Total 1300 ml 400 ml Output Total 1125 ml 750 ml Balance 175 ml -350 ml Results Result Diagram: 04/29/17 0510 04/29/17 0510 ZOE GOYAL M.D. Apr 29, 2017 11:54
--- NOTE | 2017-04-29 19:35 | PN ---
Date/Time of Note Date/Time of Note DATE: 04/29/17 TIME: 19:31 Assessment/Plan VTE Prophylaxis VTE Prophylaxis Intervention: SCD's Lines/Catheters IV Catheter Type (from [facility]): Saline Lock Urinary Cath still in place: No Assessment/Plan Assessment/Plan 1. Systemic inflammatory response syndrome===> s/p leukocytosis, secondary to intra-abdominal process, possibly also steroid induced. 2. Biliary obstruction status post fluoroscopic-guided biliary drainage catheter placement with exchange on 04/12/2017. 3. Metastatic cholangiocarcinoma to lymph nodes and liver. 5. History of primary sclerosing cholangitis since 2008. 6. Cachexia. Plan: off abx, pain controlled, afebrile, WBC count normal pt still has biliary drain in place, Hepatobiliary surgery to decide if pt is going to SNF with drain or not Appreciate all subspeciality help Bp stable Awaiting SNF placement, PT consulted for evaluation Subjective 24 Hr Interval Summary Free Text/Dictation still has biliary drain in pplace, pain controlled, afebrile, WBC normal Exam/Review of Systems Vital Signs Vitals Vital Signs Date Time Temp Pulse Resp B/P Pulse Ox O2 Delivery O2 Flow Rate FiO2 04/29/17 07:51 98.7 61 20 102/67 98 Intake and Output 04/28/17 04/28/17 04/29/17 15:00 23:00 07:00 Intake Total 1300 ml 400 ml Output Total 1125 ml 750 ml Balance 175 ml -350 ml Exam GENERAL: This is a well-developed, elderly, cachectic man who is alert, in no distress. HEENT: Head atraumatic, normocephalic. Sclerae anicteric. Buccal mucosa dry. NECK: Supple, trachea midline. CHEST: Rise symmetrical. Breath sounds clear, diminished to bases. HEART: S1, S2. ABDOMEN: Soft, bowel tones present. EXTREMITIES: Without cyanosis. Results Result Diagram: 04/29/17 0510 04/29/17 0510 Results 24 hrs Laboratory Tests Test 04/29/17 05:10 White Blood Count 8.5 Red Blood Count 3.68 L Hemoglobin 11.3 L Hematocrit 35.9 L Mean Corpuscular Volume 97.6 Mean Corpuscular Hemoglobin 30.7 Mean Corpuscular Hemoglobin Concent 31.5 L Red Cell Distribution Width 20.0 H Platelet Count 529 H Mean Platelet Volume 9.6 Neutrophils % 67.1 Lymphocytes % 17.8 Monocytes % 11.4 H Eosinophils % 2.8 Basophils % 0.4 Nucleated Red Blood Cells % 0.0 Neutrophils # 5.7 Lymphocytes # 1.5 Monocytes # 1.0 H Eosinophils # 0.2 Basophils # 0.0 Nucleated Red Blood Cells # 0.0 Sodium Level 141 Potassium Level 4.1 Chloride Level 103 Carbon Dioxide Level 28 Anion Gap 14 Blood Urea Nitrogen 12 Creatinine 0.53 L Glucose Level 93 Calcium Level 9.7 Medications Medications Current Medications Ondansetron HCl (Zofran Inj) 4 mg Q6H PRN IV NAUSEA AND/OR VOMITING; Start at 19:30 Acetaminophen (Tylenol Tab) 650 mg Q6H PRN PO PAIN LEVEL 1-3 OR FEVER; Start at 19:30 Docusate Sodium (Colace) 100 mg Q12H PRN PO CONSTIPATION; Start 03/30/17 at 19: 30 Magnesium Hydroxide (Milk Of Mag) 30 ml DAILY PRN PO CONSTIPATION; Start at 19:30 Sodium Biphosphate/ Sodium Phosphate (Fleet Enema) 133 ml DAILY PRN IN CONSTIPATION; Start 03/30/17 at 19:30 Hydralazine HCl (Apresoline) 10 mg Q6H PRN IV ELEVATED BLOOD PRESSURE; Start at 19:30 Nitroglycerin (Nitroglycerin (Sl Tab) 0.4 Mg) 1 tab Q5M PRN SL ANGINA; Start at 19:30 Escitalopram Oxalate (Lexapro) 20 mg DAILY PO Last administered on 04/28/17 12 :35; Admin Dose 20 MG; Start 04/11/17 at 09:00 Nystatin (Nystatin Susp) 5 ml QID PO Last administered on 04/29/17 18:01; Admin Dose 5 ML; Start 04/13/17 at 18:00 Potassium Chloride (Klor-Con 10) 10 meq BID@08,18 PO Last administered on 18:01; Admin Dose 10 MEQ; Start 04/17/17 at 08:00 Lidocaine (Lidocaine 5% Oint) 1 applic QID PRN TOP PAIN Last administered on 12:16; Admin Dose 1 APPLIC; Start 04/22/17 at 09:30 Hydromorphone HCl (Dilaudid) 2 mg Q6H PRN PO PAIN Last administered on 00:48; Admin Dose 2 MG; Start 04/24/17 at 11:00 Pantoprazole (Protonix Tab) 40 mg DAILY@06 PO ; Start 04/30/17 at 06:00 DWIGHT NEAL MD Apr 29, 2017 19:35
[2017-04-29 20:32] VITALS: BP 114/70; RESP 19
--- NOTE | 2017-04-29 22:09 | CONS ---
Date/Time of Note Date/Time of Note DATE: 04/29/17 TIME: 22:08 Assessment/Plan Assessment/Plan Chief Complaint/Hosp Course 1. 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 postop , NOW WITH Metastatic dis in the liver lobular area of elevated T2 signal is seen in the central liver worrisome for a mass possibly cholangiocarcinoma and this causes prominent intrahepatic biliary ductal dilatation of both the left and right intrahepatic biliary ducts with central loss of signal at the area of the mass. CT and MRI- REVIEWED TUMOR MARKERS : ca [id number] [id number] , c/w to tumor progression hepatobiliary consult noted- D/W Kt TRAORE POST drain placement in the right lobe of the liver- c/w abscess POST stenting across the anastomosis with IR. PTBD LFT - noted pt is a candidate for local treatment - per DR Vazquez 2. Obstructive jaundice. Stable, ro stricture/recurrent tumor. MRCP/GI eval, hepatobiliary surgery consult- REVIEWED surgical f-up Dr Anderson noted POST biliary drainage by interventional radiology 3. Chronic Crohn's disease status post total proctocolectomy with J-pouch creation 2005. 4. Chronic primary sclerosing cholangitis w cholangiocarcinoma. Needs advanced care planning evaluated. Poor prognosis. Performance status questionable at this time for chemotherapy & bilirubin needs some improvement. 5. Malnutrition; oral feeds/Megace vs TPN 6. Active pouchitis? 7. Postop day 16 bd excision w cholecystectomy, excision of extrahepatic cbd and Isabell-en-Y hepaticojejunostomy. 8. Failure to thrive, may need snf 9. Anemia- WILL TRANSFUSE PRBC PRN 10. Reactive thrombocytosis 11. Dyslipidemia. POOR PS agree with transfer to SNF Hospice consult now on hold. Problems: Consultation Date/Type/Reason Admit Date/Time March 30, 2017 at 18:53 Initial Consult Date 03/31/17 Type of Consultation: [facility] Referring Provider: HUMZA JAIME MD 24 HR Interval Summary Free Text/Dictation still has biliary drain in place, pain controlled, afebrile, WBC normal Exam/Review of Systems Vital Signs Vitals Vital Signs Date Time Temp Pulse Resp B/P Pulse Ox O2 Delivery O2 Flow Rate FiO2 04/29/17 20:32 98.7 87 19 114/70 98 Intake and Output 04/28/17 04/28/17 04/29/17 15:00 23:00 07:00 Intake Total 1300 ml 400 ml Output Total 1125 ml 750 ml Balance 175 ml -350 ml Exam Exam GENERAL: This is a well-developed, elderly, cachectic man who is alert, in no distress. HEENT: Head atraumatic, normocephalic. Sclerae anicteric. Buccal mucosa dry. NECK: Supple, trachea midline. CHEST: Rise symmetrical. Breath sounds clear, diminished to bases. HEART: S1, S2. ABDOMEN: Soft, bowel tones present. EXTREMITIES: Without cyanosis. Results Result Diagram: 04/29/17 0510 04/29/17 0510 Results 24 hrs Laboratory Tests Test 04/29/17 05:10 White Blood Count 8.5 Red Blood Count 3.68 L Hemoglobin 11.3 L Hematocrit 35.9 L Mean Corpuscular Volume 97.6 Mean Corpuscular Hemoglobin 30.7 Mean Corpuscular Hemoglobin Concent 31.5 L Red Cell Distribution Width 20.0 H Platelet Count 529 H Mean Platelet Volume 9.6 Neutrophils % 67.1 Lymphocytes % 17.8 Monocytes % 11.4 H Eosinophils % 2.8 Basophils % 0.4 Nucleated Red Blood Cells % 0.0 Neutrophils # 5.7 Lymphocytes # 1.5 Monocytes # 1.0 H Eosinophils # 0.2 Basophils # 0.0 Nucleated Red Blood Cells # 0.0 Sodium Level 141 Potassium Level 4.1 Chloride Level 103 Carbon Dioxide Level 28 Anion Gap 14 Blood Urea Nitrogen 12 Creatinine 0.53 L Glucose Level 93 Calcium Level 9.7 Medications Medications Current Medications Ondansetron HCl (Zofran Inj) 4 mg Q6H PRN IV NAUSEA AND/OR VOMITING; Start at 19:30 Acetaminophen (Tylenol Tab) 650 mg Q6H PRN PO PAIN LEVEL 1-3 OR FEVER; Start at 19:30 Docusate Sodium (Colace) 100 mg Q12H PRN PO CONSTIPATION; Start 03/30/17 at 19: 30 Magnesium Hydroxide (Milk Of Mag) 30 ml DAILY PRN PO CONSTIPATION; Start at 19:30 Sodium Biphosphate/ Sodium Phosphate (Fleet Enema) 133 ml DAILY PRN MS CONSTIPATION; Start 03/30/17 at 19:30 Hydralazine HCl (Apresoline) 10 mg Q6H PRN IV ELEVATED BLOOD PRESSURE; Start at 19:30 Nitroglycerin (Nitroglycerin (Sl Tab) 0.4 Mg) 1 tab Q5M PRN SL ANGINA; Start at 19:30 Escitalopram Oxalate (Lexapro) 20 mg DAILY PO Last administered on 04/28/17 12 :35; Admin Dose 20 MG; Start 04/11/17 at 09:00 Nystatin (Nystatin Susp) 5 ml QID PO Last administered on 04/29/17 21:48; Admin Dose 5 ML; Start 04/13/17 at 18:00 Potassium Chloride (Klor-Con 10) 10 meq BID@08,18 PO Last administered on 18:01; Admin Dose 10 MEQ; Start 04/17/17 at 08:00 Lidocaine (Lidocaine 5% Oint) 1 applic QID PRN TOP PAIN Last administered on 12:16; Admin Dose 1 APPLIC; Start 04/22/17 at 09:30 Hydromorphone HCl (Dilaudid) 2 mg Q6H PRN PO PAIN Last administered on 20:42; Admin Dose 2 MG; Start 04/24/17 at 11:00 Pantoprazole (Protonix Tab) 40 mg DAILY@06 PO ; Start 04/30/17 at 06:00 KIN ESTEBAN MD Apr 29, 2017 22:09
[2017-04-30] MEDS: HYDROmorphONE 2 MG TAB PO PRN ×3 (04:06→22:11)
[2017-04-30] MEDS: PANTOPRAZOLE (EC) 40 MG TAB PO SCH (05:00)
[2017-04-30 05:19] LABS: ADD SCAN DIFF NO
[2017-04-30 05:27] LABS: BASOPHILS % 0.2 % (0.0-2.0); EOSINOPHILS # 0.1 10^3/ul (0.0-0.5); HEMATOCRIT 33.4 % (42.0-52.0); LYMPHOCYTES # 0.7 10^3/ul (0.8-2.9); LYMPHOCYTES % 5.2 % (15.0-51.0); MEAN CORPUSCULAR HEMOGLOBIN 31.7 pg (29.0-33.0); MEAN CORPUSCULAR HGB CONC 32.9 g/dl (32.0-37.0); MEAN CORPUSCULAR VOLUME 96.3 fl (82.0-101.0); MEAN PLATELET VOLUME 9.3 fl (7.4-10.4); MONOCYTE # 1.4 10^3/ul (0.3-0.9); MONOCYTES % 10.9 % (0.0-11.0); NEUTROPHIL # 10.7 10^3/ul (1.6-7.5); NEUTROPHILS % 82.2 % (39.0-77.0); PLATELET COUNT 500 10^3/UL (140-415); RED BLOOD COUNT 3.47 10^6/ul (4.70-6.10)
[2017-04-30 05:45] LABS: INR 1.32; PROTIME 16.5 Sec (12.2-14.2); PT RATIO 1.3
[2017-04-30 05:46] LABS: PARTIAL THROMBOPLASTIN TIME 34.6 Sec (25.0-35.0)
[2017-04-30 05:56] LABS: ALBUMIN 3.7 g/dl (3.3-4.9); ALBUMIN/GLOBULIN RATIO 0.94; BILIRUBIN,DIRECT 2.4 mg/dl (0.00-0.20); BILIRUBIN,INDIRECT 1.4 mg/dl (0-1.1); BILIRUBIN,TOTAL 3.8 mg/dl (0.2-1.3); CALCIUM 9.2 mg/dl (8.4-10.2); CREATININE 0.54 mg/dl (0.61-1.24); POTASSIUM 3.9 mmol/L (3.5-5.1); TOTAL PROTEIN 7.6 g/dl (6.1-8.1)
[2017-04-30 07:52] VITALS: BP 100/65; RESP 20
--- NOTE | 2017-04-30 08:25 | PN ---
Date/Time of Note Date/Time of Note DATE: 04/30/17 TIME: 08:22 Assessment/Plan Lines/Catheters IV Catheter Type (from [facility]): Saline Lock Andrews in Place (from [facility]): No Assessment/Plan Assessment/Plan [facility] Progress Note Date of Service: 04/30/17 Today's Impression & Plan: Overall stable. Rise in WBC and T.Bili/LFT's noted. Need drain checks. Awaiting SNF bed. D/w Dr. Grijalva and patient. With above assessment, I've recommended the following for today: 1. Continued aggressive medical management 2. Aggressive nutritional support with increased oral intake. 3. Labs in am including LFT's 4. R biliary drain to gravity drainage 5. L biliary drain to remain capped 6. Flush both biliary drains with 10 cc NS BID (very important to be taught to patient, family and to the next level of care nurses) 7. Cont. off antimicrobials 8. Assisted activity with education on how to deal with his back 9. F/u on culture results and do more cultures if indicated clinically (still at risk for ongoing cholangitis, UTI, pneumonia, etc.) 10. Ongoing plans for SNF placement 11. Bilateral biliary drain checks with attempt at internalizing the right biliary drain through the hepaticojejunostomy Thank you again for your great care of this very pleasant patient and wonderful family. If there are any questions, please feel free to call me at [phone]. TOTAL VISIT TIME: 20 minutes of which more than half was spent in [id number] discussion with the patient, possibly including family, as well as coordination of care between multiple physicians and providers. Disclaimer: Inadvertent spelling or grammatical errors are likely due to EHR/ dictation software use and do not reflect on the overall quality of patient care. Updated clinical summary: A very pleasant 61-year-old gentleman with significant past medical history including ulcerative colitis status post total proctocolectomy and ileoanal pouch as well as a number of other medical issues who was diagnosed with cholangiocarcinoma and underwent a radical bile duct resection that included extrahepatic bile duct and gallbladder at [facility], 2016, with final diagnosis of cholangiocarcinoma with 1/8 lymph node positive disease as well as low-grade dysplasia and carcinoma in situ at the proximal margin. The patient was readmitted to [facility] after a 2 month hospital stay at [facility] with increasing weakness, jaundice, and diffuse body pain. S/p perc drainage of right biliary system 04/03/17. : s/p placement of left biliary drain which traverses patient's anastomosis on that side. Right system has a tight anastomosis that could not be traversed. R biliary drain upsized 04/12/17. L biliary drain capped . COMORBIDITIES: 1. History of ulcerative colitis status post total proctocolectomy and ileoanal pouch. 2. Diagnosis of primary sclerosing cholangitis since 2008 being cared for at various institutions such as [facility] and by various physicians with involvement of Dr. Krystian Adkins for hepatology. 3. History of hospitalization at [facility] for bile duct obstruction from mid December to early March with bile duct excision with cholecystectomy with removal of extrahepatic bile duct and Isabell-en-Y hepaticojejunostomy on 07/2017 with the above-mentioned pathology. 4. Chronic back pain, mainly lower, for the last 5 to 6 years. 5. Significant weight loss of more than 20 to 30 pounds over the last 6 months. 6. No history of lymphoma (note that this was reported erroneously in the patient's chart. The patient does not report any history of lymphoma in the past and that is also corroborated by the patient's family). 7. Status post multiple ERCPs and stenting in the past since 2005. 8. Elevated alpha fetoprotein 1.8 in 12/2016. 9. Elevated CA19-9 of 272.9 in 12/2016. 10. Normal CEA at 1.6 on 01/14/2017. 11. Status post sigmoidoscopy, 01/16/2017, showing moderate pouchitis and negative for dysplasia or malignancy. 12. S/p perc drainage of right biliary system 04/03/17. 13. 04/09/17: s/p placement of left biliary drain which traverses patient's anastomosis on that side. Right system has a tight anastomosis that could not be traversed. 14. Compression fracture 04/10/17 Subjective: No major events or complaints; no abd pain and under control with medications; no n/v/d; no sob or cp; + flatus; + BM and normal for him; + activity. Objective: Vitals: See below Exam: GENERAL: On exam, the patient was laying in bed and appeared to be comfortable and in no acute distress. ABDOMEN: Soft, nontender, and nondistended. Incisions are clean, dry and intact without any evidence of erythema, edema, discharge, or hernia. R biliary drains bilious. L biliary drain capped. SKIN: Skin appears to be pink and feels warm to touch. NEUROLOGIC: Patient was awake, alert, and followed commands appropriately. Exam/Review of Systems Vital Signs Vitals Vital Signs Date Time Temp Pulse Resp B/P Pulse Ox O2 Delivery O2 Flow Rate FiO2 04/30/17 07:52 98.9 82 20 100/65 98 Intake and Output 04/29/17 04/29/17 04/30/17 15:00 23:00 07:00 Intake Total 1400 ml 720 ml Output Total 1100 ml 815 ml Balance 300 ml -95 ml Results Result Diagram: 04/30/17 0430 04/30/17 0430 ZOE GOYAL M.D. Apr 30, 2017 08:25
[2017-04-30] MEDS: NYSTATIN SUSP 5 ML CUP PO SCH ×4 (09:03→21:16)
[2017-04-30] MEDS: POTASSIUM CHLORIDE (SR) 10 MEQ TAB PO SCH ×2 (09:04→18:38)
[2017-04-30] MEDS: ESCITALOPRAM 10 MG TAB PO SCH (09:04)
[2017-04-30] MEDS ORDERED: IOHEXOL 300MG/ML 150 ML BTL ONE (10:46)
--- NOTE | 2017-04-30 13:04 | RADRPT ---
PROCEDURE: Fluoroscopic guided injection of biliary drainage catheters. CLINICAL INDICATION: Biliary obstruction. TECHNIQUE: 11 images of the abdomen were obtained during injection of the right and left biliary d rainage catheters. 0.2 minutes of fluoroscopy time was used. COMPARISON: 04/12/2017. FINDINGS: The right-sided biliary drainage catheter is noted in the right main intrahepatic bile duct. Contra st enters the duodenum. The left-sided biliary drainage catheter is present with side holes in the intrahepatic bile ducts on the left and the distal portion of the catheter is present in the duodenu m. IMPRESSION: 1. Satisfactory position and patency of the two biliary drainage catheters. RPTAT: QQ .Talat Grijalva MD, MD Date Time Electronically viewed and signed by .Talat Grijalva MD, on 04/30/2017 13:04 .R/
[2017-04-30 16:20] LABS: ADD UMIC YES; UR BILIRUBIN (Dip) 3+ (NEGATIVE); UR BLOOD (Dip) NEGATIVE (NEGATIVE); UR CLARITY CLOUDY (CLEAR); UR COLOR AMBER (YELLOW); UR KETONES (Dip) NEGATIVE (NEGATIVE); UR LEUKOCYTE ESTERASE (Dip) NEGATIVE (NEGATIVE); UR NITRITE (Dip) POSITIVE (NEGATIVE); UR TOTAL PROTEIN (Dip) 2+ (NEGATIVE); UR UROBILINOGEN (Dip) 1.0 E.U./dL (0.1-1.0)
[2017-04-30 16:40] LABS: ICTOTEST POSITIVE (NEGATIVE); UR BACTERIA MODERATE; UR TRANSITIONAL EPI CELL MODERATE; URINE RBCS NONE SEEN /HPF (0)
--- NOTE | 2017-04-30 20:49 | CONS ---
Date/Time of Note Date/Time of Note DATE: 04/30/17 TIME: 20:47 Assessment/Plan Assessment/Plan Chief Complaint/Hosp Course 1. 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 postop , NOW WITH Metastatic dis in the liver lobular area of elevated T2 signal is seen in the central liver worrisome for a mass possibly cholangiocarcinoma and this causes prominent intrahepatic biliary ductal dilatation of both the left and right intrahepatic biliary ducts with central loss of signal at the area of the mass. CT and MRI- REVIEWED TUMOR MARKERS : ca 19-9 1420 , c/w to tumor progression hepatobiliary consult noted- D/W Kt TRAORE POST drain placement in the right lobe of the liver- c/w abscess POST stenting across the anastomosis with IR. PTBD LFT - noted pt is a candidate for local treatment - per DR Vazquez 2. Obstructive jaundice. Stable, ro stricture/recurrent tumor. MRCP/GI eval, hepatobiliary surgery consult- REVIEWED surgical f-up Dr Anderson noted POST biliary drainage by interventional radiology 3. Chronic Crohn's disease status post total proctocolectomy with J-pouch creation 2005. 4. Chronic primary sclerosing cholangitis w cholangiocarcinoma. Needs advanced care planning evaluated. Poor prognosis. Performance status questionable at this time for chemotherapy & bilirubin needs some improvement. 5. Malnutrition; oral feeds/Megace vs TPN 6. Active pouchitis? 7. Postop day 16 bd excision w cholecystectomy, excision of extrahepatic cbd and Isabell-en-Y hepaticojejunostomy. 8. Failure to thrive, may need snf 9. Anemia- WILL TRANSFUSE PRBC PRN 10. Reactive thrombocytosis 11. Dyslipidemia. POOR PS agree with transfer to SNF Hospice consult now on hold. Problems: Consultation Date/Type/Reason Admit Date/Time March 30, 2017 at 18:53 Initial Consult Date 03/31/17 [facility] Referring Provider: HUMZA JAIME MD 24 HR Interval Summary Free Text/Dictation all noted R biliary drain upsized 04/12/17. L biliary drain capped . Exam/Review of Systems Vital Signs Vitals Vital Signs Date Time Temp Pulse Resp B/P Pulse Ox O2 Delivery O2 Flow Rate FiO2 04/30/17 07:52 98.9 82 20 100/65 98 Intake and Output 04/29/17 04/29/17 04/30/17 15:00 23:00 07:00 Intake Total 1400 ml 720 ml Output Total 1100 ml 815 ml Balance 300 ml -95 ml Exam GENERAL: This is a well-developed, elderly, cachectic man who is alert, in no distress. HEENT: Head atraumatic, normocephalic. Sclerae anicteric. Buccal mucosa dry. NECK: Supple, trachea midline. CHEST: Rise symmetrical. Breath sounds clear, diminished to bases. HEART: S1, S2. ABDOMEN: Soft, bowel tones present. EXTREMITIES: Without cyanosis. Results Result Diagram: 04/30/17 0430 04/30/17 0430 Results 24 hrs Laboratory Tests Test 04/30/17 04:30 04/30/17 14:57 White Blood Count 13.0 #H Red Blood Count 3.47 L Hemoglobin 11.0 L Hematocrit 33.4 L Mean Corpuscular Volume 96.3 Mean Corpuscular Hemoglobin 31.7 Mean Corpuscular Hemoglobin Concent 32.9 Red Cell Distribution Width 20.0 H Platelet Count 500 H Mean Platelet Volume 9.3 Neutrophils % 82.2 H Lymphocytes % 5.2 L Monocytes % 10.9 Eosinophils % 1.0 Basophils % 0.2 Nucleated Red Blood Cells % 0.0 Neutrophils # 10.7 H Lymphocytes # 0.7 L Monocytes # 1.4 H Eosinophils # 0.1 Basophils # 0.0 Nucleated Red Blood Cells # 0.0 Prothrombin Time 16.5 H Prothrombin Time Ratio 1.3 INR International Normalized Ratio 1.32 Activated Partial Thromboplast Time 34.6 Sodium Level 140 Potassium Level 3.9 Chloride Level 104 Carbon Dioxide Level 25 Anion Gap 15 Blood Urea Nitrogen 11 Creatinine 0.54 L Glucose Level 101 Calcium Level 9.2 Total Bilirubin 3.8 H Direct Bilirubin 2.40 H Indirect Bilirubin 1.4 H Aspartate Amino Transf (AST/SGOT) 63 H Alanine Aminotransferase (ALT/SGPT) 46 Alkaline Phosphatase 447 H Total Protein 7.6 Albumin 3.7 Globulin 3.90 H Albumin/Globulin Ratio 0.94 Urine Color COURTNEY Urine Clarity CLOUDY H Urine pH 6.5 Urine Specific [place] 1.025 Urine Ketones NEGATIVE Urine Nitrite POSITIVE H Urine Bilirubin 3+ H Urine Ictotest POSITIVE Urine Urobilinogen 1.0 E.U./dL Urine Leukocyte Esterase NEGATIVE Urine Microscopic RBC NONE SEEN Urine Microscopic WBC 0-2 Urine Transitional Epithelial Cells MODERATE Urine Bacteria MODERATE Urine Fine Granular Casts MODERATE Urine Coarse Granular Casts FEW Urine Hemoglobin NEGATIVE Urine Glucose 0.1% H Urine Total Protein 2+ H Medications Medications Current Medications Ondansetron HCl (Zofran Inj) 4 mg Q6H PRN IV NAUSEA AND/OR VOMITING; Start at 19:30 Acetaminophen (Tylenol Tab) 650 mg Q6H PRN PO PAIN LEVEL 1-3 OR FEVER; Start at 19:30 Docusate Sodium (Colace) 100 mg Q12H PRN PO CONSTIPATION; Start 03/30/17 at 19: 30 Magnesium Hydroxide (Milk Of Mag) 30 ml DAILY PRN PO CONSTIPATION; Start at 19:30 Sodium Biphosphate/ Sodium Phosphate (Fleet Enema) 133 ml DAILY PRN [place] CONSTIPATION; Start 03/30/17 at 19:30 Hydralazine HCl (Apresoline) 10 mg Q6H PRN IV ELEVATED BLOOD PRESSURE; Start at 19:30 Nitroglycerin (Nitroglycerin (Sl Tab) 0.4 Mg) 1 tab Q5M PRN SL ANGINA; Start at 19:30 Escitalopram Oxalate (Lexapro) 20 mg DAILY PO Last administered on 04/30/17 09 :04; Admin Dose 20 MG; Start 04/11/17 at 09:00 Nystatin (Nystatin Susp) 5 ml QID PO Last administered on 04/30/17 17:00; Admin Dose 5 ML; Start 04/13/17 at 18:00 Potassium Chloride (Klor-Con 10) 10 meq BID@08,18 PO Last administered on 18:38; Admin Dose 10 MEQ; Start 04/17/17 at 08:00 Lidocaine (Lidocaine 5% Oint) 1 applic QID PRN TOP PAIN Last administered on 12:16; Admin Dose 1 APPLIC; Start 04/22/17 at 09:30 Hydromorphone HCl (Dilaudid) 2 mg Q6H PRN PO PAIN Last administered on 10:28; Admin Dose 2 MG; Start 04/24/17 at 11:00 Pantoprazole (Protonix Tab) 40 mg DAILY@06 PO Last administered on 04/30/17 05 :00; Admin Dose 40 MG; Start 04/30/17 at 06:00 KIN ESTEBAN MD Apr 30, 2017 20:49
[2017-04-30 20:55] VITALS: BP 102/65; RESP 18
--- NOTE | 2017-04-30 21:31 | PN ---
Date/Time of Note Date/Time of Note DATE: 04/30/17 TIME: 21:29 Assessment/Plan VTE Prophylaxis VTE Prophylaxis Intervention: SCD's Lines/Catheters IV [facility]from [facility] Saline Lock Urinary Cath still in place: No Assessment/Plan Assessment/Plan 1. Systemic inflammatory response syndrome===> s/p leukocytosis, secondary to intra-abdominal process, possibly also steroid induced. 2. Biliary obstruction status post fluoroscopic-guided biliary drainage catheter placement with exchange on 04/12/2017. 3. Metastatic cholangiocarcinoma to lymph nodes and liver. 5. History of primary sclerosing cholangitis since 2008. 6. Cachexia. Plan: off abx, pain controlled, afebrile, WBC count normal Fluoroscopic guided injection of biliary drainage catheters.- patent drain in place pt still has biliary drain in place, Hepatobiliary surgery to decide if pt is going to SNF with drain or not Appreciate all subspeciality help Bp stable Awaiting SNF placement, PT consulted for evaluation Exam/Review of Systems Vital Signs Vitals Vital Signs Date Time Temp Pulse Resp B/P Pulse Ox O2 Delivery O2 Flow Rate FiO2 04/30/17 20:55 98.7 87 18 102/65 97 Intake and Output 04/29/17 04/29/17 04/30/17 15:00 23:00 07:00 Intake Total 1400 ml 720 ml Output Total 1100 ml 815 ml Balance 300 ml -95 ml Exam GENERAL: This is a well-developed, elderly, cachectic man who is alert, in no distress. HEENT: Head atraumatic, normocephalic. Sclerae anicteric. Buccal mucosa dry. NECK: Supple, trachea midline. CHEST: Rise symmetrical. Breath sounds clear, diminished to bases. HEART: S1, S2. ABDOMEN: Soft, bowel tones present. EXTREMITIES: Without cyanosis. Results Result Diagram: 04/30/17 0430 04/30/17 0430 Results 24 hrs Laboratory Tests Test 04/30/17 04:30 04/30/17 14:57 White Blood Count 13.0 #H Red Blood Count 3.47 L Hemoglobin 11.0 L Hematocrit 33.4 L Mean Corpuscular Volume 96.3 Mean Corpuscular Hemoglobin 31.7 Mean Corpuscular Hemoglobin Concent 32.9 Red Cell Distribution Width 20.0 H Platelet Count 500 H Mean Platelet Volume 9.3 Neutrophils % 82.2 H Lymphocytes % 5.2 L Monocytes % 10.9 Eosinophils % 1.0 Basophils % 0.2 Nucleated Red Blood Cells % 0.0 Neutrophils # 10.7 H Lymphocytes # 0.7 L Monocytes # 1.4 H Eosinophils # 0.1 Basophils # 0.0 Nucleated Red Blood Cells # 0.0 Prothrombin Time 16.5 H Prothrombin Time Ratio 1.3 INR International Normalized Ratio 1.32 Activated Partial Thromboplast Time 34.6 Sodium Level 140 Potassium Level 3.9 Chloride Level 104 Carbon Dioxide Level 25 Anion Gap 15 Blood Urea Nitrogen 11 Creatinine 0.54 L Glucose Level 101 Calcium Level 9.2 Total Bilirubin 3.8 H Direct Bilirubin 2.40 H Indirect Bilirubin 1.4 H Aspartate Amino Transf (AST/SGOT) 63 H Alanine Aminotransferase (ALT/SGPT) 46 Alkaline Phosphatase 447 H Total Protein 7.6 Albumin 3.7 Globulin 3.90 H Albumin/Globulin Ratio 0.94 Urine Color COURTNEY Urine Clarity CLOUDY H Urine pH 6.5 Urine Specific [place] 1.025 Urine Ketones NEGATIVE Urine Nitrite POSITIVE H Urine Bilirubin 3+ H Urine Ictotest POSITIVE Urine Urobilinogen 1.0 E.U./dL Urine Leukocyte Esterase NEGATIVE Urine Microscopic RBC NONE SEEN Urine Microscopic WBC 0-2 Urine Transitional Epithelial Cells MODERATE Urine Bacteria MODERATE Urine Fine Granular Casts MODERATE Urine Coarse Granular Casts FEW Urine Hemoglobin NEGATIVE Urine Glucose 0.1% H Urine Total Protein 2+ H Medications Medications Current Medications Ondansetron HCl (Zofran Inj) 4 mg Q6H PRN IV NAUSEA AND/OR VOMITING; Start at 19:30 Acetaminophen (Tylenol Tab) 650 mg Q6H PRN PO PAIN LEVEL 1-3 OR FEVER; Start at 19:30 Docusate Sodium (Colace) 100 mg Q12H PRN PO CONSTIPATION; Start 03/30/17 at 19: 30 Magnesium Hydroxide (Milk Of Mag) 30 ml DAILY PRN PO CONSTIPATION; Start at 19:30 Sodium Biphosphate/ Sodium Phosphate (Fleet Enema) 133 ml DAILY PRN [place] CONSTIPATION; Start 03/30/17 at 19:30 Hydralazine HCl (Apresoline) 10 mg Q6H PRN IV ELEVATED BLOOD PRESSURE; Start at 19:30 Nitroglycerin (Nitroglycerin (Sl Tab) 0.4 Mg) 1 tab Q5M PRN SL ANGINA; Start at 19:30 Escitalopram Oxalate (Lexapro) 20 mg DAILY PO Last administered on 04/30/17 09 :04; Admin Dose 20 MG; Start 04/11/17 at 09:00 Nystatin (Nystatin Susp) 5 ml QID PO Last administered on 04/30/17 21:16; Admin Dose 5 ML; Start 04/13/17 at 18:00 Potassium Chloride (Klor-Con 10) 10 meq BID@08,18 PO Last administered on 18:38; Admin Dose 10 MEQ; Start 04/17/17 at 08:00 Lidocaine (Lidocaine 5% Oint) 1 applic QID PRN TOP PAIN Last administered on 12:16; Admin Dose 1 APPLIC; Start 04/22/17 at 09:30 Hydromorphone HCl (Dilaudid) 2 mg Q6H PRN PO PAIN Last administered on 10:28; Admin Dose 2 MG; Start 04/24/17 at 11:00 Pantoprazole (Protonix Tab) 40 mg DAILY@06 PO Last administered on 04/30/17 05 :00; Admin Dose 40 MG; Start 04/30/17 at 06:00 DWIGHT NEAL MD Apr 30, 2017 21:31
[2017-05-01] MEDS: PANTOPRAZOLE (EC) 40 MG TAB PO SCH (05:57)
[2017-05-01 06:31] LABS: INR 1.64; PROTIME 19.5 Sec (12.2-14.2); PT RATIO 1.5
[2017-05-01 06:32] LABS: PARTIAL THROMBOPLASTIN TIME 41.3 Sec (25.0-35.0)
[2017-05-01 06:54] LABS: ALBUMIN 3.5 g/dl (3.3-4.9); ALBUMIN/GLOBULIN RATIO 1.02; BILIRUBIN,DIRECT 3.2 mg/dl (0.00-0.20); BILIRUBIN,INDIRECT 1.4 mg/dl (0-1.1); BILIRUBIN,TOTAL 4.6 mg/dl (0.2-1.3); CALCIUM 9.1 mg/dl (8.4-10.2); CREATININE 0.57 mg/dl (0.61-1.24); POTASSIUM 3.9 mmol/L (3.5-5.1); TOTAL PROTEIN 6.9 g/dl (6.1-8.1)
[2017-05-01 07:36] VITALS: BP 99/62; RESP 20
[2017-05-01] MEDS: ESCITALOPRAM 10 MG TAB PO SCH (09:27)
[2017-05-01] MEDS: NYSTATIN SUSP 5 ML CUP PO SCH ×4 (09:27→21:00)
[2017-05-01] MEDS: POTASSIUM CHLORIDE (SR) 10 MEQ TAB PO SCH ×2 (09:27→17:53)
--- NOTE | 2017-05-01 14:51 | CONS ---
Date/Time of Note Date/Time of Note DATE: 05/01/17 TIME: 14:50 Assessment/Plan Assessment/Plan Chief Complaint/Hosp Course SUBJECTIVE: No acute events alert, feels good, eating lunch, no fevers. +dark colored urine MICROBIOLOGY: Intra-abdominal fluid culture grew Klebsiella pneumoniae and Bacteroides fragilis===> treated. INDWELLINGS: The patient has two intra-abdominal drainages. PHYSICAL EXAMINATION: GENERAL: This is a well-developed, elderly, cachectic man who is alert, in no distress. HEENT: Head atraumatic, normocephalic. Sclerae anicteric. Buccal mucosa dry. NECK: Supple, trachea midline. CHEST: Rise symmetrical. Breath sounds clear, diminished to bases. HEART: S1, S2. ABDOMEN: Soft, bowel tones present. EXTREMITIES: Without cyanosis. ASSESSMENT: 1. Systemic inflammatory response syndrome===> s/p leukocytosis, secondary to intra-abdominal process, possibly also steroid induced. 2. Biliary obstruction status post fluoroscopic-guided biliary drainage catheter placement with exchange on 04/12/2017. 3. Metastatic cholangiocarcinoma to lymph nodes and liver. 5. History of primary sclerosing cholangitis since 2008. 6. Cachexia. PLAN: Clinically stable, off abx, awaiting SNF placement, pending urine cx DW RN Problems: Consultation Date/Type/Reason Admit Date/Time March 30, 2017 at 18:53 Initial Consult Date 03/31/17 Type of Consultation: id Referring Provider: HUMZA JAIME MD Exam/Review of Systems Vital Signs Vitals Vital Signs Date Time Temp Pulse Resp B/P Pulse Ox O2 Delivery O2 Flow Rate FiO2 05/01/17 07:36 98.6 67 20 99/62 98 Intake and Output 04/30/17 04/30/17 05/01/17 15:00 23:00 07:00 Intake Total 400 ml 200 ml Output Total 220 ml Balance 400 ml -20 ml Results Result Diagram: 04/30/17 0430 05/01/17 0414 Results 24 hrs Laboratory Tests Test 04/30/17 14:57 05/01/17 04:14 05/01/17 04:15 Urine Color COURTNEY Urine Clarity CLOUDY H Urine pH 6.5 Urine Specific [place] 1.025 Urine Ketones NEGATIVE Urine Nitrite POSITIVE H Urine Bilirubin 3+ H Urine Ictotest POSITIVE Urine Urobilinogen 1.0 E.U./dL Urine Leukocyte Esterase NEGATIVE Urine Microscopic RBC NONE SEEN Urine Microscopic WBC 0-2 Urine Transitional Epithelial Cells MODERATE Urine Bacteria MODERATE Urine Fine Granular Casts MODERATE Urine Coarse Granular Casts FEW Urine Hemoglobin NEGATIVE Urine Glucose 0.1% H Urine Total Protein 2+ H Sodium Level 138 Potassium Level 3.9 Chloride Level 103 Carbon Dioxide Level 27 Anion Gap 12 Blood Urea Nitrogen 11 Creatinine 0.57 L Glucose Level 80 Calcium Level 9.1 Total Bilirubin 4.6 H Direct Bilirubin 3.20 H Indirect Bilirubin 1.4 H Aspartate Amino Transf (AST/SGOT) 65 H Alanine Aminotransferase (ALT/SGPT) 47 Alkaline Phosphatase 393 H Total Protein 6.9 Albumin 3.5 Globulin 3.40 H Albumin/Globulin Ratio 1.02 Prothrombin Time 19.5 H Prothrombin Time Ratio 1.5 INR International Normalized Ratio 1.64 Activated Partial Thromboplast Time 41.3 H Medications Medications Current Medications Ondansetron HCl (Zofran Inj) 4 mg Q6H PRN IV NAUSEA AND/OR VOMITING; Start at 19:30 Acetaminophen (Tylenol Tab) 650 mg Q6H PRN PO PAIN LEVEL 1-3 OR FEVER; Start at 19:30 Docusate Sodium (Colace) 100 mg Q12H PRN PO CONSTIPATION; Start 03/30/17 at 19: 30 Magnesium Hydroxide (Milk Of Mag) 30 ml DAILY PRN PO CONSTIPATION; Start at 19:30 Sodium Biphosphate/ Sodium Phosphate (Fleet Enema) 133 ml DAILY PRN [place] CONSTIPATION; Start 03/30/17 at 19:30 Hydralazine HCl (Apresoline) 10 mg Q6H PRN IV ELEVATED BLOOD PRESSURE; Start at 19:30 Nitroglycerin (Nitroglycerin (Sl Tab) 0.4 Mg) 1 tab Q5M PRN SL ANGINA; Start at 19:30 Escitalopram Oxalate (Lexapro) 20 mg DAILY PO Last administered on 05/01/17 09 :27; Admin Dose 20 MG; Start 04/11/17 at 09:00 Nystatin (Nystatin Susp) 5 ml QID PO Last administered on 05/01/17 09:27; Admin Dose 5 ML; Start 04/13/17 at 18:00 Potassium Chloride (Klor-Con 10) 10 meq BID@08,18 PO Last administered on 09:27; Admin Dose 10 MEQ; Start 04/17/17 at 08:00 Lidocaine (Lidocaine 5% Oint) 1 applic QID PRN TOP PAIN Last administered on 12:16; Admin Dose 1 APPLIC; Start 04/22/17 at 09:30 Hydromorphone HCl (Dilaudid) 2 mg Q6H PRN PO PAIN Last administered on 22:11; Admin Dose 2 MG; Start 04/24/17 at 11:00 Pantoprazole (Protonix Tab) 40 mg DAILY@06 PO Last administered on 05/01/17 05 :57; Admin Dose 40 MG; Start 04/30/17 at 06:00 DEBRA GILL NP May 01, 2017 14:51
[2017-05-01] MEDS: HYDROmorphONE 2 MG TAB PO PRN (15:55)
--- NOTE | 2017-05-01 18:19 | PN ---
Date/Time of Note Date/Time of Note DATE: 05/01/17 TIME: 18:18 Assessment/Plan VTE Prophylaxis VTE Prophylaxis Intervention: SCD's Lines/Catheters [facility] Saline Lock Urinary Cath still in place: No Assessment/Plan Assessment/Plan 1. Systemic inflammatory response syndrome===> s/p leukocytosis, secondary to intra-abdominal process, possibly also steroid induced. 2. Biliary obstruction status post fluoroscopic-guided biliary drainage catheter placement with exchange on 04/12/2017. 3. Metastatic cholangiocarcinoma to lymph nodes and liver. 5. History of primary sclerosing cholangitis since 2008. 6. Cachexia. Plan: off abx, pain controlled, afebrile, WBC count normal Fluoroscopic guided injection of biliary drainage catheters.- patent drain in place pt still has biliary drain in place, Hepatobiliary surgery to decide if pt is going to SNF with drain or not Appreciate all subspeciality help Bp stable Awaiting SNF placement, PT consulted for evaluation Subjective 24 Hr Interval Summary Free Text/Dictation doing ok, drain working fine, Exam/Review of Systems Vital Signs Vitals Vital Signs Date Time Temp Pulse Resp B/P Pulse Ox O2 Delivery O2 Flow Rate FiO2 05/01/17 07:36 98.6 67 20 99/62 98 Intake and Output 04/30/17 04/30/17 05/01/17 15:00 23:00 07:00 Intake Total 400 ml 200 ml Output Total 220 ml Balance 400 ml -20 ml Exam GENERAL: This is a well-developed, elderly, cachectic man who is alert, in no distress. HEENT: Head atraumatic, normocephalic. Sclerae anicteric. Buccal mucosa dry. NECK: Supple, trachea midline. CHEST: Rise symmetrical. Breath sounds clear, diminished to bases. HEART: S1, S2. ABDOMEN: Soft, bowel tones present. EXTREMITIES: Without cyanosis. Results Result Diagram: 04/30/17 0430 05/01/17 0414 Results 24 hrs Laboratory Tests Test 05/01/17 04:14 05/01/17 04:15 Sodium Level 138 Potassium Level 3.9 Chloride Level 103 Carbon Dioxide Level 27 Anion Gap 12 Blood Urea Nitrogen 11 Creatinine 0.57 L Glucose Level 80 Calcium Level 9.1 Total Bilirubin 4.6 H Direct Bilirubin 3.20 H Indirect Bilirubin 1.4 H Aspartate Amino Transf (AST/SGOT) 65 H Alanine Aminotransferase (ALT/SGPT) 47 Alkaline Phosphatase 393 H Total Protein 6.9 Albumin 3.5 Globulin 3.40 H Albumin/Globulin Ratio 1.02 Prothrombin Time 19.5 H Prothrombin Time Ratio 1.5 INR International Normalized Ratio 1.64 Activated Partial Thromboplast Time 41.3 H Medications Medications Current Medications Ondansetron HCl (Zofran Inj) 4 mg Q6H PRN IV NAUSEA AND/OR VOMITING; Start at 19:30 Acetaminophen (Tylenol Tab) 650 mg Q6H PRN PO PAIN LEVEL 1-3 OR FEVER; Start at 19:30 Docusate Sodium (Colace) 100 mg Q12H PRN PO CONSTIPATION; Start 03/30/17 at 19: 30 Magnesium Hydroxide (Milk Of Mag) 30 ml DAILY PRN PO CONSTIPATION; Start at 19:30 Sodium Biphosphate/ Sodium Phosphate (Fleet Enema) 133 ml DAILY PRN [place] CONSTIPATION; Start 03/30/17 at 19:30 Hydralazine HCl (Apresoline) 10 mg Q6H PRN IV ELEVATED BLOOD PRESSURE; Start at 19:30 Nitroglycerin (Nitroglycerin (Sl Tab) 0.4 Mg) 1 tab Q5M PRN SL ANGINA; Start at 19:30 Escitalopram Oxalate (Lexapro) 20 mg DAILY PO Last administered on 05/01/17 09 :27; Admin Dose 20 MG; Start 04/11/17 at 09:00 Nystatin (Nystatin Susp) 5 ml QID PO Last administered on 05/01/17 17:53; Admin Dose 5 ML; Start 04/13/17 at 18:00 Potassium Chloride (Klor-Con 10) 10 meq BID@08,18 PO Last administered on 17:53; Admin Dose 10 MEQ; Start 04/17/17 at 08:00 Lidocaine (Lidocaine 5% Oint) 1 applic QID PRN TOP PAIN Last administered on 12:16; Admin Dose 1 APPLIC; Start 04/22/17 at 09:30 Hydromorphone HCl (Dilaudid) 2 mg Q6H PRN PO PAIN Last administered on 15:55; Admin Dose 2 MG; Start 04/24/17 at 11:00 Pantoprazole (Protonix Tab) 40 mg DAILY@06 PO Last administered on 05/01/17t 05 :57; Admin Dose 40 MG; Start 04/30/17 at 06:00 DWIGHT NEAL MD May 01, 2017 18:19
--- NOTE | 2017-05-01 19:15 | CONS ---
Date/Time of Note Date/Time of Note DATE: 05/01/17 TIME: 19:13 Assessment/Plan Assessment/Plan Chief Complaint/Hosp Course 1. 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 postop , NOW WITH Metastatic dis in the liver lobular area of elevated T2 signal is seen in the central liver worrisome for a mass possibly cholangiocarcinoma and this causes prominent intrahepatic biliary ductal dilatation of both the left and right intrahepatic biliary ducts with central loss of signal at the area of the mass. CT and MRI- REVIEWED TUMOR MARKERS : ca 19-9 1420 , c/w to tumor progression hepatobiliary consult noted- D/W Kt TRAORE POST drain placement in the right lobe of the liver- c/w abscess POST stenting across the anastomosis with IR. PTBD LFT - noted pt is a candidate for local treatment - per DR Vazquez 2. Obstructive jaundice. Stable, ro stricture/recurrent tumor. MRCP/GI eval, hepatobiliary surgery consult- REVIEWED surgical f-up Dr Anderson noted POST biliary drainage by interventional radiology 3. Chronic Crohn's disease status post total proctocolectomy with J-pouch creation 2005. 4. Chronic primary sclerosing cholangitis w cholangiocarcinoma. Needs advanced care planning evaluated. Poor prognosis. Performance status questionable at this time for chemotherapy & bilirubin needs some improvement. 5. Malnutrition; oral feeds/Megace vs TPN 6. Active pouchitis? 7. Postop day 16 bd excision w cholecystectomy, excision of extrahepatic cbd and Isabell-en-Y hepaticojejunostomy. 8. Failure to thrive, may need snf 9. Anemia- WILL TRANSFUSE PRBC PRN 10. Reactive thrombocytosis 11. Dyslipidemia. POOR PS agree with transfer to SNF Hospice consult now on hold. Problems: Consultation Date/Type/Reason Admit Date/Time March 30, 2017 at 18:53 Initial Consult Date 03/31/17 [facility] Referring Provider: HUMZA JAIME MD 24 HR Interval Summary Free Text/Dictation ALL NOTED NO NEW EVENTS Exam/Review of Systems Vital Signs Vitals Vital Signs Date Time Temp Pulse Resp B/P Pulse Ox O2 Delivery O2 Flow Rate FiO2 05/01/17 07:36 98.6 67 20 99/62 98 Intake and Output 04/30/17 04/30/17 05/01/17 15:00 23:00 07:00 Intake Total 400 ml 200 ml Output Total 220 ml Balance 400 ml -20 ml Exam GENERAL: This is a well-developed, elderly, cachectic man who is alert, in no distress. HEENT: Head atraumatic, normocephalic. Sclerae anicteric. Buccal mucosa dry. NECK: Supple, trachea midline. CHEST: Rise symmetrical. Breath sounds clear, diminished to bases. HEART: S1, S2. ABDOMEN: Soft, bowel tones present. EXTREMITIES: Without cyanosis. Results Result Diagram: 04/30/17 0430 05/01/17 0414 Results 24 hrs Laboratory Tests Test 05/01/17 04:14 05/01/17 04:15 Sodium Level 138 Potassium Level 3.9 Chloride Level 103 Carbon Dioxide Level 27 Anion Gap 12 Blood Urea Nitrogen 11 Creatinine 0.57 L Glucose Level 80 Calcium Level 9.1 Total Bilirubin 4.6 H Direct Bilirubin 3.20 H Indirect Bilirubin 1.4 H Aspartate Amino Transf (AST/SGOT) 65 H Alanine Aminotransferase (ALT/SGPT) 47 Alkaline Phosphatase 393 H Total Protein 6.9 Albumin 3.5 Globulin 3.40 H Albumin/Globulin Ratio 1.02 Prothrombin Time 19.5 H Prothrombin Time Ratio 1.5 INR International Normalized Ratio 1.64 Activated Partial Thromboplast Time 41.3 H Medications Medications Current Medications Ondansetron HCl (Zofran Inj) 4 mg Q6H PRN IV NAUSEA AND/OR VOMITING; Start at 19:30 Acetaminophen (Tylenol Tab) 650 mg Q6H PRN PO PAIN LEVEL 1-3 OR FEVER; Start at 19:30 Docusate Sodium (Colace) 100 mg Q12H PRN PO CONSTIPATION; Start 03/30/17 at 19: 30 Magnesium Hydroxide (Milk Of Mag) 30 ml DAILY PRN PO CONSTIPATION; Start at 19:30 Sodium Biphosphate/ Sodium Phosphate (Fleet Enema) 133 ml DAILY PRN [place] CONSTIPATION; Start 03/30/17 at 19:30 Hydralazine HCl (Apresoline) 10 mg Q6H PRN IV ELEVATED BLOOD PRESSURE; Start at 19:30 Nitroglycerin (Nitroglycerin (Sl Tab) 0.4 Mg) 1 tab Q5M PRN SL ANGINA; Start at 19:30 Escitalopram Oxalate (Lexapro) 20 mg DAILY PO Last administered on 05/01/17 09 :27; Admin Dose 20 MG; Start 04/11/17 at 09:00 Nystatin (Nystatin Susp) 5 ml QID PO Last administered on 05/01/17 17:53; Admin Dose 5 ML; Start 04/13/17 at 18:00 Potassium Chloride (Klor-Con 10) 10 meq BID@08,18 PO Last administered on 17:53; Admin Dose 10 MEQ; Start 04/17/17 at 08:00 Lidocaine (Lidocaine 5% Oint) 1 applic QID PRN TOP PAIN Last administered on 12:16; Admin Dose 1 APPLIC; Start 04/22/17 at 09:30 Hydromorphone HCl (Dilaudid) 2 mg Q6H PRN PO PAIN Last administered on 15:55; Admin Dose 2 MG; Start 04/24/17 at 11:00 Pantoprazole (Protonix Tab) 40 mg DAILY@06 PO Last administered on 05/01/17 05 :57; Admin Dose 40 MG; Start 04/30/17 at 06:00 KIN ESTEBAN MD May 01, 2017 19:15
[2017-05-01 21:29] VITALS: BP 102/68; RESP 18
--- NOTE | 2017-05-01 22:41 | PN ---
Date/Time of Note Date/Time of Note DATE: 05/01/17 TIME: 22:36 Assessment/Plan Lines/Catheters IV Catheter Type (from Rust): Saline Lock Andrews in Place (from Rust): No Assessment/Plan Assessment/Plan [facility] Progress Note Date of Service: 05/01/17 Today's Impression & Plan: Overall stable. Drain checks yesterday showed patent biliary drains. Rise in T.Bili/LFT's noted. Not certain about trajectory, but with open drains, can likely monitor for now. Awaiting SNF bed. D/w patient. With above assessment, I've recommended the following for today: 1. Continued aggressive medical management 2. Aggressive nutritional support with increased oral intake. 3. Labs in am including LFT's 4. R biliary drain to gravity drainage 5. L biliary drain to remain capped 6. Flush both biliary drains with 10 cc NS BID (very important to be taught to patient, family and to the next level of care nurses) 7. Cont. off antimicrobials 8. Assisted activity with education on how to deal with his back 9. F/u on culture results and do more cultures if indicated clinically (still at risk for ongoing cholangitis, UTI, pneumonia, etc.) 10. Ongoing plans for SNF placement Thank you again for your great care of this very pleasant patient and wonderful family. If there are any questions, please feel free to call me at [phone]. TOTAL VISIT TIME: 20 minutes of which more than half was spent in [id number] discussion with the patient, possibly including family, as well as coordination of care between multiple physicians and providers. Disclaimer: Inadvertent spelling or grammatical errors are likely due to EHR/ dictation software use and do not reflect on the overall quality of patient care. Updated clinical summary: A very pleasant 61-year-old gentleman with significant past medical history including ulcerative colitis status post total proctocolectomy and ileoanal pouch as well as a number of other medical issues who was diagnosed with cholangiocarcinoma and underwent a radical bile duct resection that included extrahepatic bile duct and gallbladder at [facility], 2016, with final diagnosis of cholangiocarcinoma with 1/8 lymph node positive disease as well as low-grade dysplasia and carcinoma in situ at the proximal margin. The patient was readmitted to [facility] after a 2 month hospital stay at [facility] with increasing weakness, jaundice, and diffuse body pain. S/p perc drainage of right biliary system 04/03/17. : s/p placement of left biliary drain which traverses patient's anastomosis on that side. Right system has a tight anastomosis that could not be traversed. R biliary drain upsized 04/12/17. L biliary drain capped . S/p B drain checks 04/30/17 (both open). COMORBIDITIES: 1. History of ulcerative colitis status post total proctocolectomy and ileoanal pouch. 2. Diagnosis of primary sclerosing cholangitis since 2008 being cared for at various institutions such as [facility] and by various physicians with involvement of Dr. Krystian Adkins for hepatology. 3. History of hospitalization at [facility] for bile duct obstruction from mid December to early March with bile duct excision with cholecystectomy with removal of extrahepatic bile duct and Isabell-en-Y hepaticojejunostomy on 07/2017 with the above-mentioned pathology. 4. Chronic back pain, mainly lower, for the last 5 to 6 years. 5. Significant weight loss of more than 20 to 30 pounds over the last 6 months. 6. No history of lymphoma (note that this was reported erroneously in the patient's chart. The patient does not report any history of lymphoma in the past and that is also corroborated by the patient's family). 7. Status post multiple ERCPs and stenting in the past since 2005. 8. Elevated alpha fetoprotein 1.8 in 12/2016. 9. Elevated CA19-9 of 272.9 in 12/2016. 10. Normal CEA at 1.6 on 01/14/2017. 11. Status post sigmoidoscopy, 01/16/2017, showing moderate pouchitis and negative for dysplasia or malignancy. 12. S/p perc drainage of right biliary system 04/03/17. 13. 04/09/17: s/p placement of left biliary drain which traverses patient's anastomosis on that side. Right system has a tight anastomosis that could not be traversed. 14. Compression fracture 04/10/17 Subjective: No major events or complaints; no abd pain and under control with medications; no n/v/d; no sob or cp; + flatus; + BM and normal for him; + activity. Objective: Vitals: See below Exam: GENERAL: On exam, the patient was laying in bed and appeared to be comfortable and in no acute distress. ABDOMEN: Soft, nontender, and nondistended. Incisions are clean, dry and intact without any evidence of erythema, edema, discharge, or hernia. R biliary drains bilious. L biliary drain capped. SKIN: Skin appears to be pink and feels warm to touch. NEUROLOGIC: Patient was awake, alert, and followed commands appropriately. Exam/Review of Systems Vital Signs Vitals Vital Signs Date Time Temp Pulse Resp B/P Pulse Ox O2 Delivery O2 Flow Rate FiO2 05/01/17 21:29 98.2 83 18 102/68 97 Intake and Output 04/30/17 04/30/17 05/01/17 15:00 23:00 07:00 Intake Total 400 ml 200 ml Output Total 220 ml Balance 400 ml -20 ml Results Result Diagram: 04/30/17 0430 05/01/17 0414 ZOE GOYAL M.D. May 01, 2017 22:41
[2017-05-02] MEDS: HYDROmorphONE 2 MG TAB PO PRN ×2 (00:48→19:46)
[2017-05-02] MEDS: PANTOPRAZOLE (EC) 40 MG TAB PO SCH (05:53)
[2017-05-02 08:00] VITALS: BP 102/62; RESP 18
[2017-05-02] MEDS: ESCITALOPRAM 10 MG TAB PO SCH (09:06)
[2017-05-02] MEDS: POTASSIUM CHLORIDE (SR) 10 MEQ TAB PO SCH ×2 (09:06→17:50)
[2017-05-02] MEDS: NYSTATIN SUSP 5 ML CUP PO SCH ×4 (09:06→20:02)
--- NOTE | 2017-05-02 16:31 | PN ---
Date/Time of Note Date/Time of Note DATE: 05/02/17 TIME: 16:31 Assessment/Plan Lines/Catheters IV Catheter Type (from Nrs): Saline Lock Andrews in Place (from Nrs): No Assessment/Plan Assessment/Plan [facility] Progress Note Date of Service: 05/02/17 Today's Impression & Plan: Overall stable. Awaiting T.Bili/LFT's. Awaiting SNF bed. D/w patient. With above assessment, I've recommended the following for today: 1. Continued aggressive medical management 2. Aggressive nutritional support with increased oral intake. 3. Labs in am including LFT's and check labs for today to plot 4. R biliary drain to gravity drainage 5. L biliary drain to remain capped 6. Flush both biliary drains with 10 cc NS BID (very important to be taught to patient, family and to the next level of care nurses) 7. Cont. off antimicrobials 8. Assisted activity with education on how to deal with his back 9. F/u on culture results and do more cultures if indicated clinically (still at risk for ongoing cholangitis, UTI, pneumonia, etc.) 10. Ongoing plans for SNF placement Thank you again for your great care of this very pleasant patient and wonderful family. If there are any questions, please feel free to call me at [phone]. TOTAL VISIT TIME: 20 minutes of which more than half was spent in [id number] discussion with the patient, possibly including family, as well as coordination of care between multiple physicians and providers. Disclaimer: Inadvertent spelling or grammatical errors are likely due to EHR/ dictation software use and do not reflect on the overall quality of patient care. Updated clinical summary: A very pleasant 61-year-old gentleman with significant past medical history including ulcerative colitis status post total proctocolectomy and ileoanal pouch as well as a number of other medical issues who was diagnosed with cholangiocarcinoma and underwent a radical bile duct resection that included extrahepatic bile duct and gallbladder at [facility], 2016, with final diagnosis of cholangiocarcinoma with 1/8 lymph node positive disease as well as low-grade dysplasia and carcinoma in situ at the proximal margin. The patient was readmitted to [facility] after a 2 month hospital stay at [facility] with increasing weakness, jaundice, and diffuse body pain. S/p perc drainage of right biliary system 04/03/17. : s/p placement of left biliary drain which traverses patient's anastomosis on that side. Right system has a tight anastomosis that could not be traversed. R biliary drain upsized 04/12/17. L biliary drain capped . S/p B drain checks 04/30/17 (both open). COMORBIDITIES: 1. History of ulcerative colitis status post total proctocolectomy and ileoanal pouch. 2. Diagnosis of primary sclerosing cholangitis since 2008 being cared for at various institutions such as [facility] and by various physicians with involvement of Dr. Krystian Adkins for hepatology. 3. History of hospitalization at [facility] for bile duct obstruction from mid December to early March with bile duct excision with cholecystectomy with removal of extrahepatic bile duct and Isabell-en-Y hepaticojejunostomy on 07/2017 with the above-mentioned pathology. 4. Chronic back pain, mainly lower, for the last 5 to 6 years. 5. Significant weight loss of more than 20 to 30 pounds over the last 6 months. 6. No history of lymphoma (note that this was reported erroneously in the patient's chart. The patient does not report any history of lymphoma in the past and that is also corroborated by the patient's family). 7. Status post multiple ERCPs and stenting in the past since 2005. 8. Elevated alpha fetoprotein 1.8 in 12/2016. 9. Elevated CA19-9 of 272.9 in 12/2016. 10. Normal CEA at 1.6 on 01/14/2017. 11. Status post sigmoidoscopy, 01/16/2017, showing moderate pouchitis and negative for dysplasia or malignancy. 12. S/p perc drainage of right biliary system 04/03/17. 13. 04/09/17: s/p placement of left biliary drain which traverses patient's anastomosis on that side. Right system has a tight anastomosis that could not be traversed. 14. Compression fracture 04/10/17 Subjective: No major events or complaints; no abd pain and under control with medications; no n/v/d; no sob or cp; + flatus; + BM and normal for him; + activity. Mild discomfort at drain insertion point in the right. Objective: Vitals: See below Exam: GENERAL: On exam, the patient was laying in bed and appeared to be comfortable and in no acute distress. ABDOMEN: Soft, nontender, and nondistended. Incisions are clean, dry and intact without any evidence of erythema, edema, discharge, or hernia. R biliary drains bilious. Drain exit site dressing clean and no obvious underlying erythema. L biliary drain capped. SKIN: Skin appears to be pink and feels warm to touch. NEUROLOGIC: Patient was awake, alert, and followed commands appropriately. Exam/Review of Systems Vital Signs Vitals Vital Signs Date Time Temp Pulse Resp B/P Pulse Ox O2 Delivery O2 Flow Rate FiO2 05/02/17 08:00 98.7 76 18 102/62 98 Intake and Output 05/01/17 05/01/17 05/02/17 15:00 23:00 07:00 Intake Total 1160 ml 200 ml Balance 1160 ml 200 ml Results Result Diagram: 04/30/17 0430 05/01/17 0414 ZOE GOYAL M.D. May 02, 2017 16:31
--- NOTE | 2017-05-02 17:36 | PN ---
Date/Time of Note Date/Time of Note DATE: 05/02/17 TIME: 17:35 Assessment/Plan VTE Prophylaxis VTE Prophylaxis Intervention: SCD's Lines/Catheters IV Catheter Type (from Nrs): Saline Lock Urinary Cath still in place: No Assessment/Plan Assessment/Plan 1. Systemic inflammatory response syndrome===> s/p leukocytosis, secondary to intra-abdominal process, possibly also steroid induced. 2. Biliary obstruction status post fluoroscopic-guided biliary drainage catheter placement with exchange on 04/12/2017. 3. Metastatic cholangiocarcinoma to lymph nodes and liver. 5. History of primary sclerosing cholangitis since 2008. 6. Cachexia. Plan: off abx, pain controlled, afebrile, WBC count normal Fluoroscopic guided injection of biliary drainage catheters.- patent drain in place pt still has biliary drain in place, Hepatobiliary surgery to decide if pt is going to SNF with drain or not Appreciate all subspeciality help Bp stable Awaiting SNF placement, PT consulted for evaluation Subjective 24 Hr Interval Summary Free Text/Dictation no acute events , BP stable Exam/Review of Systems Vital Signs Vitals Vital Signs Date Time Temp Pulse Resp B/P Pulse Ox O2 Delivery O2 Flow Rate FiO2 05/02/17 08:00 98.7 76 18 102/62 98 Intake and Output 05/01/17 05/01/17 05/02/17 15:00 23:00 07:00 Intake Total 1160 ml 200 ml Balance 1160 ml 200 ml Exam GENERAL: This is a well-developed, elderly, cachectic man who is alert, in no distress. HEENT: Head atraumatic, normocephalic. Sclerae anicteric. Buccal mucosa dry. NECK: Supple, trachea midline. CHEST: Rise symmetrical. Breath sounds clear, diminished to bases. HEART: S1, S2. ABDOMEN: Soft, bowel tones present. EXTREMITIES: Without cyanosis. Results Result Diagram: 04/30/17 0430 05/01/17 0414 Medications Medications Current Medications Ondansetron HCl (Zofran Inj) 4 mg Q6H PRN IV NAUSEA AND/OR VOMITING; Start at 19:30 Acetaminophen (Tylenol Tab) 650 mg Q6H PRN PO PAIN LEVEL 1-3 OR FEVER; Start at 19:30 Docusate Sodium (Colace) 100 mg Q12H PRN PO CONSTIPATION; Start 03/30/17 at 19: 30 Magnesium Hydroxide (Milk Of Mag) 30 ml DAILY PRN PO CONSTIPATION; Start at 19:30 Sodium Biphosphate/ Sodium Phosphate (Fleet Enema) 133 ml DAILY PRN [place] CONSTIPATION; Start 03/30/17 at 19:30 Hydralazine HCl (Apresoline) 10 mg Q6H PRN IV ELEVATED BLOOD PRESSURE; Start at 19:30 Nitroglycerin (Nitroglycerin (Sl Tab) 0.4 Mg) 1 tab Q5M PRN SL ANGINA; Start at 19:30 Escitalopram Oxalate (Lexapro) 20 mg DAILY PO Last administered on 05/02/17 09 :06; Admin Dose 20 MG; Start 04/11/17 at 09:00 Nystatin (Nystatin Susp) 5 ml QID PO Last administered on 05/02/17 13:27; Admin Dose 5 ML; Start 04/13/17 at 18:00 Potassium Chloride (Klor-Con 10) 10 meq BID@08,18 PO Last administered on 09:06; Admin Dose 10 MEQ; Start 04/17/17 at 08:00 Lidocaine (Lidocaine 5% Oint) 1 applic QID PRN TOP PAIN Last administered on 12:16; Admin Dose 1 APPLIC; Start 04/22/17 at 09:30 Hydromorphone HCl (Dilaudid) 2 mg Q6H PRN PO PAIN Last administered on 00:48; Admin Dose 2 MG; Start 04/24/17 at 11:00 Pantoprazole (Protonix Tab) 40 mg DAILY@06 PO Last administered on 05/02/17 05 :53; Admin Dose 40 MG; Start 04/30/17 at 06:00 DWIGHT NEAL MD May 02, 2017 17:36
[2017-05-02 17:49] LABS: ADD SCAN DIFF NO
[2017-05-02 18:12] LABS: BASOPHILS % 0.3 % (0.0-2.0); EOSINOPHILS # 0.1 10^3/ul (0.0-0.5); EOSINOPHILS % 1.9 % (0.0-7.0); HEMATOCRIT 32.6 % (42.0-52.0); HEMOGLOBIN 10.1 g/dl (14.0-18.0); INR 1.37; LYMPHOCYTES # 1.1 10^3/ul (0.8-2.9); LYMPHOCYTES % 14.8 % (15.0-51.0); MEAN CORPUSCULAR HEMOGLOBIN 30.1 pg (29.0-33.0); MEAN PLATELET VOLUME 9.9 fl (7.4-10.4); NEUTROPHILS % 68.7 % (39.0-77.0); PLATELET COUNT 443 10^3/UL (140-415); PROTIME 16.9 Sec (12.2-14.2); PT RATIO 1.3; RED BLOOD COUNT 3.36 10^6/ul (4.70-6.10); WHITE BLOOD COUNT 7.3 10^3/ul (4.8-10.8)
[2017-05-02 18:14] LABS: ALBUMIN 3.9 g/dl (3.3-4.9); ALBUMIN/GLOBULIN RATIO 1.11; BILIRUBIN,DIRECT 2.5 mg/dl (0.00-0.20); BILIRUBIN,INDIRECT 1.3 mg/dl (0-1.1); BILIRUBIN,TOTAL 3.8 mg/dl (0.2-1.3); CALCIUM 8.9 mg/dl (8.4-10.2); CREATININE 0.51 mg/dl (0.61-1.24); POTASSIUM 4.2 mmol/L (3.5-5.1); TOTAL PROTEIN 7.4 g/dl (6.1-8.1)
[2017-05-02 18:23] LABS: MAGNESIUM 1.8 mg/dl (1.7-2.5); PHOSPHORUS 3.1 mg/dl (2.5-4.9)
[2017-05-02 20:13] VITALS: BP 118/69; RESP 21
--- NOTE | 2017-05-02 22:26 | CONS ---
Date/Time of Note Date/Time of Note DATE: 05/02/17 TIME: 22:25 Assessment/Plan Assessment/Plan Chief Complaint/Hosp Course 1. 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 postop , NOW WITH Metastatic dis in the liver lobular area of elevated T2 signal is seen in the central liver worrisome for a mass possibly cholangiocarcinoma and this causes prominent intrahepatic biliary ductal dilatation of both the left and right intrahepatic biliary ducts with central loss of signal at the area of the mass. CT and MRI- REVIEWED TUMOR MARKERS : ca 19-9 [id number] , c/w to tumor progression hepatobiliary consult noted- D/W Kt TRAORE POST drain placement in the right lobe of the liver- c/w abscess POST stenting across the anastomosis with IR. PTBD LFT - noted pt is a candidate for local treatment - per DR Vazquez 2. Obstructive jaundice. Stable, ro stricture/recurrent tumor. MRCP/GI eval, hepatobiliary surgery consult- REVIEWED surgical f-up Dr Anderson noted POST biliary drainage by interventional radiology 3. Chronic Crohn's disease status post total proctocolectomy with J-pouch creation 2005. 4. Chronic primary sclerosing cholangitis w cholangiocarcinoma. Needs advanced care planning evaluated. Poor prognosis. Performance status questionable at this time for chemotherapy & bilirubin needs some improvement. 5. Malnutrition; oral feeds/Megace vs TPN 6. Active pouchitis? 7. Postop day 16 bd excision w cholecystectomy, excision of extrahepatic cbd and Isabell-en-Y hepaticojejunostomy. 8. Failure to thrive, may need snf 9. Anemia- WILL TRANSFUSE PRBC PRN 10. Reactive thrombocytosis 11. Dyslipidemia. POOR PS agree with transfer to SNF Hospice consult now on hold. Problems: Consultation Date/Type/Reason Admit Date/Time March 30, 2017 at 18:53 Initial Consult Date 03/31/17 Type of Consultation: HEMEON Referring Provider: HUMZA JAIME MD 24 HR Interval Summary Free Text/Dictation ALL NOTED STABLE NO NEW EVENTS Exam/Review of Systems Vital Signs Vitals Vital Signs Date Time Temp Pulse Resp B/P Pulse Ox O2 Delivery O2 Flow Rate FiO2 05/02/17 20:13 98.2 74 21 118/69 99 Intake and Output 05/01/17 05/01/17 05/02/17 15:00 23:00 07:00 Intake Total 1160 ml 200 ml Balance 1160 ml 200 ml Exam GENERAL: This is a well-developed, elderly, cachectic man who is alert, in no distress. HEENT: Head atraumatic, normocephalic. Sclerae anicteric. Buccal mucosa dry. NECK: Supple, trachea midline. CHEST: Rise symmetrical. Breath sounds clear, diminished to bases. HEART: S1, S2. ABDOMEN: Soft, bowel tones present. EXTREMITIES: Without cyanosis. Results Result Diagram: 05/02/17 1635 05/02/17 1635 Results 24 hrs Laboratory Tests Test 05/02/17 16:35 White Blood Count 7.3 # Red Blood Count 3.36 L Hemoglobin 10.1 L Hematocrit 32.6 L Mean Corpuscular Volume 97.0 Mean Corpuscular Hemoglobin 30.1 Mean Corpuscular Hemoglobin Concent 31.0 L Red Cell Distribution Width 19.0 H Platelet Count 443 H Mean Platelet Volume 9.9 Neutrophils % 68.7 Lymphocytes % 14.8 L Monocytes % 14.0 H Eosinophils % 1.9 Basophils % 0.3 Nucleated Red Blood Cells % 0.0 Neutrophils # 5.0 Lymphocytes # 1.1 Monocytes # 1.0 H Eosinophils # 0.1 Basophils # 0.0 Nucleated Red Blood Cells # 0.0 Prothrombin Time 16.9 H Prothrombin Time Ratio 1.3 INR International Normalized Ratio 1.37 Activated Partial Thromboplast Time 40.0 H Sodium Level 134 L Potassium Level 4.2 Chloride Level 102 Carbon Dioxide Level 23 Anion Gap 13 Blood Urea Nitrogen 9 Creatinine 0.51 L Glucose Level 85 Calcium Level 8.9 Phosphorus Level 3.1 Magnesium Level 1.8 Total Bilirubin 3.8 H Direct Bilirubin 2.50 H Indirect Bilirubin 1.3 H Aspartate Amino Transf (AST/SGOT) 72 H Alanine Aminotransferase (ALT/SGPT) 50 Alkaline Phosphatase 504 H Total Protein 7.4 Albumin 3.9 Globulin 3.50 H Albumin/Globulin Ratio 1.11 Medications Medications Current Medications Ondansetron HCl (Zofran Inj) 4 mg Q6H PRN IV NAUSEA AND/OR VOMITING; Start at 19:30 Acetaminophen (Tylenol Tab) 650 mg Q6H PRN PO PAIN LEVEL 1-3 OR FEVER; Start at 19:30 Docusate Sodium (Colace) 100 mg Q12H PRN PO CONSTIPATION; Start 03/30/17 at 19: 30 Magnesium Hydroxide (Milk Of Mag) 30 ml DAILY PRN PO CONSTIPATION; Start at 19:30 Sodium Biphosphate/ Sodium Phosphate (Fleet Enema) 133 ml DAILY PRN [place] CONSTIPATION; Start 03/30/17 at 19:30 Hydralazine HCl (Apresoline) 10 mg Q6H PRN IV ELEVATED BLOOD PRESSURE; Start at 19:30 Nitroglycerin (Nitroglycerin (Sl Tab) 0.4 Mg) 1 tab Q5M PRN SL ANGINA; Start at 19:30 Escitalopram Oxalate (Lexapro) 20 mg DAILY PO Last administered on 05/02/17 09 :06; Admin Dose 20 MG; Start 04/11/17 at 09:00 Nystatin (Nystatin Susp) 5 ml QID PO Last administered on 05/02/17 20:02; Admin Dose 5 ML; Start 04/13/17 at 18:00 Potassium Chloride (Klor-Con 10) 10 meq BID@08,18 PO Last administered on 17:50; Admin Dose 10 MEQ; Start 04/17/17 at 08:00 Lidocaine (Lidocaine 5% Oint) 1 applic QID PRN TOP PAIN Last administered on 12:16; Admin Dose 1 APPLIC; Start 04/22/17 at 09:30 Hydromorphone HCl (Dilaudid) 2 mg Q6H PRN PO PAIN Last administered on 19:46; Admin Dose 2 MG; Start 04/24/17 at 11:00 Pantoprazole (Protonix Tab) 40 mg DAILY@06 PO Last administered on 05/02/17 05 :53; Admin Dose 40 MG; Start 04/30/17 at 06:00 KIN ESTEBAN MD May 02, 2017 22:26
[2017-05-03] MEDS: HYDROmorphONE 2 MG TAB PO PRN ×3 (01:54→18:23)
[2017-05-03] MEDS: PANTOPRAZOLE (EC) 40 MG TAB PO SCH (05:46)
[2017-05-03 05:50] LABS: ADD SCAN DIFF NO
[2017-05-03 06:14] LABS: BASOPHILS % 0.4 % (0.0-2.0); EOSINOPHILS # 0.2 10^3/ul (0.0-0.5); EOSINOPHILS % 2.1 % (0.0-7.0); HEMATOCRIT 31.1 % (42.0-52.0); HEMOGLOBIN 10.1 g/dl (14.0-18.0); LYMPHOCYTES # 1.4 10^3/ul (0.8-2.9); LYMPHOCYTES % 16.3 % (15.0-51.0); MEAN CORPUSCULAR HEMOGLOBIN 31.2 pg (29.0-33.0); MEAN CORPUSCULAR HGB CONC 32.5 g/dl (32.0-37.0); MEAN PLATELET VOLUME 9.7 fl (7.4-10.4); MONOCYTE # 1.1 10^3/ul (0.3-0.9); MONOCYTES % 13.2 % (0.0-11.0); NEUTROPHIL # 5.7 10^3/ul (1.6-7.5); NEUTROPHILS % 67.6 % (39.0-77.0); PLATELET COUNT 472 10^3/UL (140-415); RED BLOOD COUNT 3.24 10^6/ul (4.70-6.10); RED CELL DISTRIBUTION WIDTH 18.7 % (11.5-14.5); WHITE BLOOD COUNT 8.4 10^3/ul (4.8-10.8)
[2017-05-03 06:38] LABS: INR 1.46; PROTIME 17.8 Sec (12.2-14.2); PT RATIO 1.4
[2017-05-03 06:39] LABS: PARTIAL THROMBOPLASTIN TIME 43.9 Sec (25.0-35.0)
[2017-05-03 07:06] LABS: ALBUMIN 3.5 g/dl (3.3-4.9); ALBUMIN/GLOBULIN RATIO 0.92; BILIRUBIN,DIRECT 2.4 mg/dl (0.00-0.20); BILIRUBIN,INDIRECT 1.2 mg/dl (0-1.1); BILIRUBIN,TOTAL 3.6 mg/dl (0.2-1.3); CALCIUM 9.3 mg/dl (8.4-10.2); CREATININE 0.61 mg/dl (0.61-1.24); MAGNESIUM 1.8 mg/dl (1.7-2.5); PHOSPHORUS 3.2 mg/dl (2.5-4.9); POTASSIUM 4.1 mmol/L (3.5-5.1); TOTAL PROTEIN 7.3 g/dl (6.1-8.1)
[2017-05-03 08:43] VITALS: BP 109/70; RESP 17
[2017-05-03] MEDS: POTASSIUM CHLORIDE (SR) 10 MEQ TAB PO SCH ×2 (09:58→18:22)
[2017-05-03] MEDS: NYSTATIN SUSP 5 ML CUP PO SCH ×4 (09:58→21:35)
[2017-05-03] MEDS: ESCITALOPRAM 10 MG TAB PO SCH (09:58)
--- NOTE | 2017-05-03 14:31 | PDOCDIS ---
Discharge Instructions CONDITION Patient Condition: Good HOME CARE INSTRUCTIONS: Special Diet: Mech soft ACTIVITY: Activity Restrictions: Slowly Increase Activity Rest between Activity Avoid heavy lifting Avoid Heavy Housework Special Exercises FOLLOW UP/APPOINTMENTS Appointments follow up with his own PMD in 1-2 week after discharge. Follow up with Physician at Assisted facility. Follow up with Dr.kambiz nieto in 1-2 week after discharge. Pt will need outpatient TACE Procedure for his biliary malignancy DWIGHT NEAL MD May 03, 2017 14:31
[2017-05-03] MEDS ORDERED: HYDR2TAB15 PO (14:35)
[2017-05-03] MEDS ORDERED: ACET325T40 PO (14:35)
[2017-05-03] MEDS ORDERED: ESCI10TA48 PO (14:35)
[2017-05-03] MEDS ORDERED: NIT4 SL (14:35)
[2017-05-03] MEDS ORDERED: NYST1000 PO (14:35)
[2017-05-03] MEDS ORDERED: IPRA3AMP HHN (14:35)
[2017-05-03] MEDS ORDERED: APRS IV (14:35)
[2017-05-03] MEDS ORDERED: ONDA4VIA2 IV (14:36)
[2017-05-03] MEDS ORDERED: LIDO5OI35 TOP (14:36)
[2017-05-03] MEDS ORDERED: NA P133E3 PR (14:36)
[2017-05-03] MEDS ORDERED: PANT40TA4 PO (14:36)
[2017-05-03] MEDS ORDERED: UDMOM PO (14:36)
[2017-05-03] MEDS ORDERED: DOCU-216 PO (14:36)
[2017-05-03] MEDS ORDERED: POTA10TA37 PO (14:36)
--- NOTE | 2017-05-03 16:08 | PN ---
Date/Time of Note Date/Time of Note DATE: 05/03/17 TIME: 16:06 Assessment/Plan Lines/Catheters IV C[facility]ter Type (from [facility]): Saline Lock Andrews in Place (from [facility]): No Assessment/Plan Assessment/Plan [facility] Progress Note Date of Service: 05/03/17 Today's Impression & Plan: Overall stable. T.Bili improved in the last 2 days. Reportedly a SNF bed is available today. Ok from my standpoint to discharge with f/u with me in the office in 3-4 weeks. D/w patient. With above assessment, I've recommended the following for today: 1. Continued aggressive medical management 2. Aggressive nutritional support with increased oral intake. 3. Labs in am including LFT's and check labs for today to plot 4. R biliary drain to gravity drainage 5. L biliary drain to remain capped 6. Flush both biliary drains with 10 cc NS BID (very important to be taught to patient, family and to the next level of care nurses) 7. Cont. off antimicrobials 8. Assisted activity with education on how to deal with his back 9. Continued drain care at [facility] 10. F/u visit with me in the office in 3-4 weeks 11. Hope to get to [facility] afterwards to help treat intrahepatic cholangiocarcinoma at the hilum Thank you again for your great care of this very pleasant patient and wonderful family. If there are any questions, please feel free to call me at [phone]. TOTAL VISIT TIME: 20 minutes of which more than half was spent in [id number] discussion with the patient, possibly including family, as well as coordination of care between multiple physicians and providers. Disclaimer: Inadvertent spelling or grammatical errors are likely due to EHR/ dictation software use and do not reflect on the overall quality of patient care. Updated clinical summary: A very pleasant 61-year-old gentleman with significant past medical history including ulcerative colitis status post total proctocolectomy and ileoanal pouch as well as a number of other medical issues who was diagnosed with cholangiocarcinoma and underwent a radical bile duct resection that included extrahepatic bile duct and gallbladder at [facility], 2016, with final diagnosis of cholangiocarcinoma with 1/8 lymph node positive disease as well as low-grade dysplasia and carcinoma in situ at the proximal margin. The patient was readmitted to [facility] after a 2 month hospital stay at [facility] with increasing weakness, jaundice, and diffuse body pain. S/p perc drainage of right biliary system 04/03/17. : s/p placement of left biliary drain which traverses patient's anastomosis on that side. Right system has a tight anastomosis that could not be traversed. R biliary drain upsized 04/12/17. L biliary drain capped . S/p B drain checks 04/30/17 (both open). COMORBIDITIES: 1. History of ulcerative colitis status post total proctocolectomy and ileoanal pouch. 2. Diagnosis of primary sclerosing cholangitis since 2008 being cared for at various institutions such as [facility] and by various physicians with involvement of Dr. Krystian Adkins for hepatology. 3. History of hospitalization at [facility] for bile duct obstruction from mid December to early March with bile duct excision with cholecystectomy with removal of extrahepatic bile duct and Isabell-en-Y hepaticojejunostomy on 07/2017 with the above-mentioned pathology. 4. Chronic back pain, mainly lower, for the last 5 to 6 years. 5. Significant weight loss of more than 20 to 30 pounds over the last 6 months. 6. No history of lymphoma (note that this was reported erroneously in the patient's chart. The patient does not report any history of lymphoma in the past and that is also corroborated by the patient's family). 7. Status post multiple ERCPs and stenting in the past since 2005. 8. Elevated alpha fetoprotein 1.8 in 12/2016. 9. Elevated CA19-9 of 272.9 in 12/2016. 10. Normal CEA at 1.6 on 01/14/2017. 11. Status post sigmoidoscopy, 01/16/2017, showing moderate pouchitis and negative for dysplasia or malignancy. 12. S/p perc drainage of right biliary system 04/03/17. 13. 04/09/17: s/p placement of left biliary drain which traverses patient's anastomosis on that side. Right system has a tight anastomosis that could not be traversed. 14. Compression fracture 04/10/17 Subjective: No major events or complaints; no abd pain and under control with medications; no n/v/d; no sob or cp; + flatus; + BM and normal for him; + activity. Objective: Vitals: See below Exam: GENERAL: On exam, the patient was laying in bed and appeared to be comfortable and in no acute distress. ABDOMEN: Soft, nontender, and nondistended. Incisions are clean, dry and intact without any evidence of erythema, edema, discharge, or hernia. R biliary drains bilious. Drain exit site dressing clean and no obvious underlying erythema. L biliary drain capped. SKIN: Skin appears to be pink and feels warm to touch. NEUROLOGIC: Patient was awake, alert, and followed commands appropriately. Exam/Review of Systems Vital Signs Vitals Vital Signs Date Time Temp Pulse Resp B/P Pulse Ox O2 Delivery O2 Flow Rate FiO2 05/03/17 08:43 98.0 90 17 109/70 97 Intake and Output 05/02/17 05/02/17 05/03/17 15:00 23:00 07:00 Intake Total 360 ml Output Total 40 ml Balance 320 ml Results Result Diagram: 05/03/17 0420 05/03/17 0445 ZOE GOYAL M.D. May 03, 2017 16:08
--- NOTE | 2017-05-03 19:34 | PN ---
Date/Time of Note Date/Time of Note DATE: 05/03/17 TIME: 19:33 Assessment/Plan VTE Prophylaxis VTE Prophylaxis Intervention: SCD's Lines/Catheters IV Catheter Type (from [facility]): Saline Lock Urinary Cath still in place: No Assessment/Plan Assessment/Plan 1. Systemic inflammatory response syndrome===> s/p leukocytosis, secondary to intra-abdominal process, possibly also steroid induced. 2. Biliary obstruction status post fluoroscopic-guided biliary drainage catheter placement with exchange on 04/12/2017. 3. Metastatic cholangiocarcinoma to lymph nodes and liver. 5. History of primary sclerosing cholangitis since 2008. 6. Cachexia. Plan: off abx, pain controlled, afebrile, WBC count normal Fluoroscopic guided injection of biliary drainage catheters.- patent drain in place pt still has biliary drain in place, Hepatobiliary surgery to decide if pt is going to SNF with drain or not Appreciate all subspeciality help SNF placement today Subjective 24 Hr Interval Summary Free Text/Dictation still has biliayr drain in place Exam/Review of Systems Vital Signs Vitals Vital Signs Date Time Temp Pulse Resp B/P Pulse Ox O2 Delivery O2 Flow Rate FiO2 05/03/17 08:43 98.0 90 17 109/70 97 Intake and Output 05/02/17 05/02/17 05/03/17 15:00 23:00 07:00 Intake Total 360 ml Output Total 40 ml Balance 320 ml Exam GENERAL: This is a well-developed, elderly, cachectic man who is alert, in no distress. HEENT: Head atraumatic, normocephalic. Sclerae anicteric. Buccal mucosa dry. NECK: Supple, trachea midline. CHEST: Rise symmetrical. Breath sounds clear, diminished to bases. HEART: S1, S2. ABDOMEN: Soft, bowel tones present. EXTREMITIES: Without cyanosis. Results Result Diagram: 05/03/17 0420 05/03/17 0445 Results 24 hrs Laboratory Tests Test 05/03/17 04:20 05/03/17 04:45 White Blood Count 8.4 Red Blood Count 3.24 L Hemoglobin 10.1 L Hematocrit 31.1 L Mean Corpuscular Volume 96.0 Mean Corpuscular Hemoglobin 31.2 Mean Corpuscular Hemoglobin Concent 32.5 Red Cell Distribution Width 18.7 H Platelet Count 472 H Mean Platelet Volume 9.7 Neutrophils % 67.6 Lymphocytes % 16.3 Monocytes % 13.2 H Eosinophils % 2.1 Basophils % 0.4 Nucleated Red Blood Cells % 0.0 Neutrophils # 5.7 Lymphocytes # 1.4 Monocytes # 1.1 H Eosinophils # 0.2 Basophils # 0.0 Nucleated Red Blood Cells # 0.0 Prothrombin Time 17.8 H Prothrombin Time Ratio 1.4 INR International Normalized Ratio 1.46 Activated Partial Thromboplast Time 43.9 H Sodium Level 138 Potassium Level 4.1 Chloride Level 104 Carbon Dioxide Level 25 Anion Gap 13 Blood Urea Nitrogen 11 Creatinine 0.61 Glucose Level 82 Calcium Level 9.3 Phosphorus Level 3.2 Magnesium Level 1.8 Total Bilirubin 3.6 H Direct Bilirubin 2.40 H Indirect Bilirubin 1.2 H Aspartate Amino Transf (AST/SGOT) 73 H Alanine Aminotransferase (ALT/SGPT) 44 Alkaline Phosphatase 586 H Total Protein 7.3 Albumin 3.5 Globulin 3.80 H Albumin/Globulin Ratio 0.92 Medications Medications Current Medications Ondansetron HCl (Zofran Inj) 4 mg Q6H PRN IV NAUSEA AND/OR VOMITING; Start at 19:30 Acetaminophen (Tylenol Tab) 650 mg Q6H PRN PO PAIN LEVEL 1-3 OR FEVER; Start at 19:30 Docusate Sodium (Colace) 100 mg Q12H PRN PO CONSTIPATION; Start 03/30/17 at 19: 30 Magnesium Hydroxide (Milk Of Mag) 30 ml DAILY PRN PO CONSTIPATION; Start at 19:30 Sodium Biphosphate/ Sodium Phosphate (Fleet Enema) 133 ml DAILY PRN [place] CONSTIPATION; Start 03/30/17 at 19:30 Hydralazine HCl (Apresoline) 10 mg Q6H PRN IV ELEVATED BLOOD PRESSURE; Start at 19:30 Nitroglycerin (Nitroglycerin (Sl Tab) 0.4 Mg) 1 tab Q5M PRN SL ANGINA; Start at 19:30 Escitalopram Oxalate (Lexapro) 20 mg DAILY PO Last administered on 05/03/17 09 :58; Admin Dose 20 MG; Start 04/11/17 at 09:00 Nystatin (Nystatin Susp) 5 ml QID PO Last administered on 05/03/17 17:58; Admin Dose 5 ML; Start 04/13/17 at 18:00 Potassium Chloride (Klor-Con 10) 10 meq BID@08,18 PO Last administered on 18:22; Admin Dose 10 MEQ; Start 04/17/17 at 08:00 Lidocaine (Lidocaine 5% Oint) 1 applic QID PRN TOP PAIN Last administered on 12:16; Admin Dose 1 APPLIC; Start 04/22/17 at 09:30 Hydromorphone HCl (Dilaudid) 2 mg Q6H PRN PO PAIN Last administered on 18:23; Admin Dose 2 MG; Start 04/24/17 at 11:00 Pantoprazole (Protonix Tab) 40 mg DAILY@06 PO Last administered on 05/03/17 05 :46; Admin Dose 40 MG; Start 04/30/17 at 06:00 DWIGHT NEAL MD May 03, 2017 19:34
[2017-05-03 20:00] VITALS: BP 100/66; PULSE 78; RESP 20
--- NOTE | 2017-05-03 22:10 | CONS ---
Date/Time of Note Date/Time of Note DATE: 05/03/17 TIME: 22:08 Assessment/Plan Assessment/Plan Chief Complaint/Hosp Course 1. 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 postop , NOW WITH Metastatic dis in the liver lobular area of elevated T2 signal is seen in the central liver worrisome for a mass possibly cholangiocarcinoma and this causes prominent intrahepatic biliary ductal dilatation of both the left and right intrahepatic biliary ducts with central loss of signal at the area of the mass. CT and MRI- REVIEWED TUMOR MARKERS : ca 19-9 1420 , c/w to tumor progression hepatobiliary consult noted- D/W Kt TRAORE POST drain placement in the right lobe of the liver- c/w abscess POST stenting across the anastomosis with IR. PTBD LFT - noted pt is a candidate for local treatment - [facility] per DR Vazquez 2. Obstructive jaundice. Stable, ro stricture/recurrent tumor. MRCP/GI eval, hepatobiliary surgery consult- REVIEWED surgical f-up Dr Anderson noted POST biliary drainage by interventional radiology 3. Chronic Crohn's disease status post total proctocolectomy with J-pouch creation 2005. 4. Chronic primary sclerosing cholangitis w cholangiocarcinoma. Needs advanced care planning evaluated. Poor prognosis. Performance status questionable at this time for chemotherapy & bilirubin needs some improvement. 5. Malnutrition; oral feeds/Megace vs TPN 6. Active pouchitis? 7. Postop day 16 bd excision w cholecystectomy, excision of extrahepatic cbd and Isabell-en-Y hepaticojejunostomy. 8. Failure to thrive, may need snf 9. Anemia- WILL TRANSFUSE PRBC PRN 10. Reactive thrombocytosis 11. Dyslipidemia. POOR PS agree with transfer to SNF Hospice consult now on hold. Problems: Consultation Date/Type/Reason Admit Date/Time March 30, 2017 at 18:53 Initial Consult Date 03/31/17 Type of Consultation: HEMEON Referring Provider: HUMZA JAIME MD 24 HR Interval Summary Free Text/Dictation ALL NOTED DC PLANNING IN PROCESS Exam/Review of Systems Vital Signs Vitals Vital Signs Date Time Temp Pulse Resp B/P Pulse Ox O2 Delivery O2 Flow Rate FiO2 05/03/17 08:43 98.0 90 17 109/70 97 Intake and Output 05/02/17 05/02/17 05/03/17 15:00 23:00 07:00 Intake Total 360 ml Output Total 40 ml Balance 320 ml Exam GENERAL: This is a well-developed, elderly, cachectic man who is alert, in no distress. HEENT: Head atraumatic, normocephalic. Sclerae anicteric. Buccal mucosa dry. NECK: Supple, trachea midline. CHEST: Rise symmetrical. Breath sounds clear, diminished to bases. HEART: S1, S2. ABDOMEN: Soft, bowel tones present. EXTREMITIES: Without cyanosis. Results Result Diagram: 05/03/17 0420 05/03/17 0445 Results 24 hrs Laboratory Tests Test 05/03/17 04:20 05/03/17 04:45 White Blood Count 8.4 Red Blood Count 3.24 L Hemoglobin 10.1 L Hematocrit 31.1 L Mean Corpuscular Volume 96.0 Mean Corpuscular Hemoglobin 31.2 Mean Corpuscular Hemoglobin Concent 32.5 Red Cell Distribution Width 18.7 H Platelet Count 472 H Mean Platelet Volume 9.7 Neutrophils % 67.6 Lymphocytes % 16.3 Monocytes % 13.2 H Eosinophils % 2.1 Basophils % 0.4 Nucleated Red Blood Cells % 0.0 Neutrophils # 5.7 Lymphocytes # 1.4 Monocytes # 1.1 H Eosinophils # 0.2 Basophils # 0.0 Nucleated Red Blood Cells # 0.0 Prothrombin Time 17.8 H Prothrombin Time Ratio 1.4 INR International Normalized Ratio 1.46 Activated Partial Thromboplast Time 43.9 H Sodium Level 138 Potassium Level 4.1 Chloride Level 104 Carbon Dioxide Level 25 Anion Gap 13 Blood Urea Nitrogen 11 Creatinine 0.61 Glucose Level 82 Calcium Level 9.3 Phosphorus Level 3.2 Magnesium Level 1.8 Total Bilirubin 3.6 H Direct Bilirubin 2.40 H Indirect Bilirubin 1.2 H Aspartate Amino Transf (AST/SGOT) 73 H Alanine Aminotransferase (ALT/SGPT) 44 Alkaline Phosphatase 586 H Total Protein 7.3 Albumin 3.5 Globulin 3.80 H Albumin/Globulin Ratio 0.92 Medications Medications Current Medications Ondansetron HCl (Zofran Inj) 4 mg Q6H PRN IV NAUSEA AND/OR VOMITING; Start at 19:30 Acetaminophen (Tylenol Tab) 650 mg Q6H PRN PO PAIN LEVEL 1-3 OR FEVER; Start at 19:30 Docusate Sodium (Colace) 100 mg Q12H PRN PO CONSTIPATION; Start 03/30/17 at 19: 30 Magnesium Hydroxide (Milk Of Mag) 30 ml DAILY PRN PO CONSTIPATION; Start at 19:30 Sodium Biphosphate/ Sodium Phosphate (Fleet Enema) 133 ml DAILY PRN [place] CONSTIPATION; Start 03/30/17 at 19:30 Hydralazine HCl (Apresoline) 10 mg Q6H PRN IV ELEVATED BLOOD PRESSURE; Start at 19:30 Nitroglycerin (Nitroglycerin (Sl Tab) 0.4 Mg) 1 tab Q5M PRN SL ANGINA; Start at 19:30 Escitalopram Oxalate (Lexapro) 20 mg DAILY PO Last administered on 05/03/17 09 :58; Admin Dose 20 MG; Start 04/11/17 at 09:00 Nystatin (Nystatin Susp) 5 ml QID PO Last administered on 05/03/17 21:35; Admin Dose 5 ML; Start 04/13/17 at 18:00 Potassium Chloride (Klor-Con 10) 10 meq BID@08,18 PO Last administered on 18:22; Admin Dose 10 MEQ; Start 04/17/17 at 08:00 Lidocaine (Lidocaine 5% Oint) 1 applic QID PRN TOP PAIN Last administered on 12:16; Admin Dose 1 APPLIC; Start 04/22/17 at 09:30 Hydromorphone HCl (Dilaudid) 2 mg Q6H PRN PO PAIN Last administered on 18:23; Admin Dose 2 MG; Start 04/24/17 at 11:00 Pantoprazole (Protonix Tab) 40 mg DAILY@06 PO Last administered on 05/03/17 05 :46; Admin Dose 40 MG; Start 04/30/17 at 06:00 KIN ESTEBAN MD May 03, 2017 22:10
[2017-05-04] MEDS: HYDROmorphONE 2 MG TAB PO PRN ×3 (00:41→14:34)
[2017-05-04] MEDS: PANTOPRAZOLE (EC) 40 MG TAB PO SCH (06:03)
[2017-05-04 08:30] VITALS: BP 108/66; RESP 18
[2017-05-04] MEDS: POTASSIUM CHLORIDE (SR) 10 MEQ TAB PO SCH (08:50)
[2017-05-04] MEDS: ESCITALOPRAM 10 MG TAB PO SCH (08:50)
[2017-05-04] MEDS: NYSTATIN SUSP 5 ML CUP PO SCH ×2 (08:50→14:33)
--- NOTE | 2017-05-04 12:36 | DS ---
Date/Time of Note Date/Time of Note DATE: 05/04/17 TIME: 12:31 Discharge Summary Admission/Discharge Info Admit Date/Time March 30, 2017 at 18:53 Discharge Date/Time 05/04/2017 Final Diagnosis Dehydration; metastatic cholangiocarcinoma; obstructive hepatopathy; dehydration Patient Condition: Stable Consults pancreatobiliary surgery; oncology; infectious disease; gastroenterology Procedures Abdominal pelvic CT scan; radiology biliary diversion procedure; CT scan chest; echocardiogram Hx of Present Illness Patient is a 61 yo male with hx of PSC, stage IV lymphoma who presented to ER c/ o generalized weakness, weight loss, decreased appetite and pain. He has had abd surgery jejunostomy and jejunal pouch surgery at outside hospital. He was discharged with home health and said currently he lives with his ex-. He was really emotional when talking about his symptoms saying that sometimes he wishes he never wakes up from his sleep at all. His main concern is lack of energy and pain. When he presented to ER, CTa/p showed Extensive postsurgical changes involving the bowel loops throughout the abdominal pelvic cavity including the right upper quadrant small bowel, and the distal sigmoid colon and rectum. Significant intrahepatic biliary dilatation with increased density in the central periportal region of the liver. Per radiology, underlying infiltrative mass lesion should be considered. . Hospital Course 1. 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 postop , NOW WITH Metastatic dis in the liver lobular area of elevated T2 signal is seen in the central liver worrisome for a mass possibly cholangiocarcinoma and this causes prominent intrahepatic biliary ductal dilatation of both the left and right intrahepatic biliary ducts with central loss of signal at the area of the mass. CT and MRI- REVIEWED TUMOR MARKERS : ca 19-9 1420 , c/w to tumor progression hepatobiliary consult noted- D/W Kt TRAORE POST drain placement in the right lobe of the liver- c/w abscess POST stenting across the anastomosis with IR. PTBD LFT - noted pt is a candidate for local treatment - [facility] per DR Vazquez 2. Obstructive jaundice. Stable, ro stricture/recurrent tumor. MRCP/GI eval, hepatobiliary surgery consult- REVIEWED surgical f-up Dr Anderson noted POST biliary drainage by interventional radiology 3. Chronic Crohn's disease status post total proctocolectomy with J-pouch creation 2005. 4. Chronic primary sclerosing cholangitis w cholangiocarcinoma. Needs advanced care planning evaluated. Poor prognosis. Performance status questionable at this time for chemotherapy & bilirubin needs some improvement. 5. Malnutrition; oral feeds/Megace vs TPN 6. Active pouchitis? 7. Postop day 16 bd excision w cholecystectomy, excision of extrahepatic cbd and Isabell-en-Y hepaticojejunostomy. 8. Failure to thrive, may need snf 9. Anemia- WILL TRANSFUSE PRBC PRN 10. Reactive thrombocytosis 11. Dyslipidemia. POOR PS agree with transfer to SNF Hospice consult now on hold. Charming but unfortunate 61-year-old male admitted with debility metastatic disease. He had obstructive hepatopathy that led to generalized debility and dehydration. He was stabilized and attempts were made to get dehydrated diversion of the biliary tree. This was done successfully. However given the overall status it was determined that further attempts at chemotherapy would not be in the patient's best interest and would largely be futile. He is now going to be transferred to an extended care facility for comfort measures. Home Meds Active Scripts Lidocaine (LIDOCAINE) 35.44 Gm Oint...g., 1 APPLIC TOP QID Y for PAIN for 30 Days Prov:DWIGHT NEAL MD 05/03/17 Pantoprazole* (Pantoprazole*) 40 Mg Tablet.dr, 40 MG PO DAILY@06 for 30 Days Prov:DWIGHT NEAL MD 05/03/17 Ondansetron Hcl* (Ondansetron Hcl* Inj) 4 Mg/2 Ml Vial, 4 MG IV Q6H Y for NAUSEA AND/OR VOMITING for 30 Days, VIAL Prov:DWIGHT NEAL MD 05/03/17 Na Phos,M-B/Na Phos,Di-Ba (James Ready To Use Enema) 133 Ml Enema, 133 ML [place] DAILY Y for CONSTIPATION for 30 Days, ENEMA Prov:DWIGHT NEAL MD 05/03/17 Magnesium Hydroxide* (Hsieh' MOM*) 30 Ml Susp, 30 ML PO DAILY Y for CONSTIPATION for 30 Days Prov:DWIGHT NEAL MD 05/03/17 Docusate Sodium (Dok) 100 Mg Capsule, 100 MG PO Q12H Y for CONSTIPATION for 30 Days, CAP Prov:DWIGHT NEAL MD 05/03/17 Potassium Chloride* (K-Dur*) 10 Meq Tab.prt.sr, 10 MEQ PO BID@08,18 for 30 Days Prov:DWIGHT NEAL MD 05/03/17 Hydromorphone Hcl* (Dilaudid*) 2 Mg Tablet, 2 MG PO Q6H Y for PAIN for 30 Days, TAB Prov:DWIGHT NEAL MD 05/03/17 Escitalopram Oxalate* (Escitalopram Oxalate*) 10 Mg Tablet, 20 MG PO DAILY for 30 Days, TAB Prov:DWIGHT NEAL MD 05/03/17 Acetaminophen (MAPAP) 325 Mg Tablet, 650 MG PO Q6H Y for PAIN LEVEL 1-3 OR FEVER for 30 Days, TAB Prov:DWIGHT NEAL MD 05/03/17 Nitroglycerin* (Nitrostat*) 0.4 Mg Tab.subl, 1 TAB SL Q5M Y for ANGINA for 30 Days Prov:DWIGHT NEAL MD 05/03/17 Hydralazine Hcl* (Apresoline* Pediatric Oral) 1 Mg/Ml (Compounded) Oral Solution , 10 MG IV Q6H Y for ELEVATED BLOOD PRESSURE for 30 Days Prov:DWIGHT NEAL MD 05/03/17 Ipratropium-Albuterol (Ipratropium-Albuterol) 0.5-3 Mg/3 Ml Ampul.neb, 3 ML HHN Q4H RESP THERAPY Y for SHORTNESS OF BREATH for 30 Days Prov:DWIGHT NEAL MD 05/03/17 Nystatin (Nystatin) 100,000 Unit/1 Ml Oral.susp, 5 ML PO QID for 30 Days Prov:DWIGHT NEAL MD 05/03/17 Reported Medications Escitalopram Oxalate* (Lexapro*) 10 Mg Tablet, 10 MG PO DAILY, #30 TAB 03/30/17 Follow-up Plan Dr. Autumn Bee in 1 week Primary Care Provider Care Physician No Primary Time spent on discharge: > 30 minutes CHING PAPPAS MD May 04, 2017 12:36
--- NOTE | 2017-05-04 23:20 | CONS ---
Date/Time of Note Date/Time of Note DATE: 05/04/17 TIME: 12:20 vk em Assessment/Plan Assessment/Plan Chief Complaint/Hosp Course 1. 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 postop , NOW WITH Metastatic dis in the liver lobular area of elevated T2 signal is seen in the central liver worrisome for a mass possibly cholangiocarcinoma and this causes prominent intrahepatic biliary ductal dilatation of both the left and right intrahepatic biliary ducts with central loss of signal at the area of the mass. CT and MRI- REVIEWED TUMOR MARKERS : ca 19-9 1420 , c/w to tumor progression hepatobiliary consult noted- D/W Kt TRAORE POST drain placement in the right lobe of the liver- c/w abscess POST stenting across the anastomosis with IR. PTBD LFT - noted pt is a candidate for local treatment - [facility] per DR Vazquez 2. Obstructive jaundice. Stable, ro stricture/recurrent tumor. MRCP/GI eval, hepatobiliary surgery consult- REVIEWED surgical f-up Dr Anderson noted POST biliary drainage by interventional radiology 3. Chronic Crohn's disease status post total proctocolectomy with J-pouch creation 2005. 4. Chronic primary sclerosing cholangitis w cholangiocarcinoma. Needs advanced care planning evaluated. Poor prognosis. Performance status questionable at this time for chemotherapy & bilirubin needs some improvement. 5. Malnutrition; oral feeds/Megace vs TPN 6. Active pouchitis? 7. Postop day 16 bd excision w cholecystectomy, excision of extrahepatic cbd and Isabell-en-Y hepaticojejunostomy. 8. Failure to thrive, may need snf 9. Anemia- WILL TRANSFUSE PRBC PRN 10. Reactive thrombocytosis 11. Dyslipidemia. POOR PS agree with transfer to SNF Hospice consult now on hold. Problems: Consultation Date/Type/Reason Admit Date/Time March 30, 2017 at 18:53 Initial Consult Date 03/31/17 [facility] Referring Provider: HUMZA JAIME MD 24 HR Interval Summary Free Text/Dictation ALL NOTED FOR DC TODAY Exam/Review of Systems Vital Signs Vitals Vital Signs Date Time Temp Pulse Resp B/P Pulse Ox O2 Delivery O2 Flow Rate FiO2 05/04/17 08:30 98.6 82 18 108/66 96 05/03/17 20:00 Room Air Intake and Output 05/03/17 05/03/17 05/04/17 15:00 23:00 07:00 Intake Total 820 ml 750 ml Output Total 110 ml 0 ml Balance 710 ml 750 ml Exam GENERAL: This is a well-developed, elderly, cachectic man who is alert, in no distress. HEENT: Head atraumatic, normocephalic. Sclerae anicteric. Buccal mucosa dry. NECK: Supple, trachea midline. CHEST: Rise symmetrical. Breath sounds clear, diminished to bases. HEART: S1, S2. ABDOMEN: Soft, bowel tones present. EXTREMITIES: Without cyanosis. Results Result Diagram: 05/03/17 0420 05/03/17 0445 KIN ESTEBAN MD May 04, 2017 23:20
== END 2017-05-04 15:54 | DRG 435 ==
LOC: E/R 16:20 → MS2 18:53 → TEL 20:01 → PP2 04-24 16:27
PROVIDERS: ADMIT Internal Medicine; ATTEND Internal Medicine
PROC: 0F9530Z Drainage of Right Hepatic Duct with Drainage Device, Percutaneous Approach (ICD-10-PCS; principal; 2017-04-04 09:30)
PROC: 0F2BX0Z Change Drainage Device in Hepatobiliary Duct, External Approach (ICD-10-PCS; 2017-04-09)
PROC: 0F9630Z Drainage of Left Hepatic Duct with Drainage Device, Percutaneous Approach (ICD-10-PCS; 2017-04-09)
PROC: 30233N1 Transfusion of Nonautologous Red Blood Cells into Peripheral Vein, Percutaneous Approach (ICD-10-PCS; 2017-04-11)
PROC: 0F2BX0Z Change Drainage Device in Hepatobiliary Duct, External Approach (ICD-10-PCS; 2017-04-12)
DX: C78.7 Secondary malignant neoplasm of liver and intrahepatic bile duct (principal); E43 Unspecified severe protein-calorie malnutrition; K83.0 Cholangitis; L89.301 Pressure ulcer of unspecified buttock, stage 1; R64 Cachexia; I49.5 Sick sinus syndrome; K83.1 Obstruction of bile duct; E87.1 Hypo-osmolality and hyponatremia; K50.90 Crohn's disease, unspecified, without complications; K91.850 Pouchitis; Z68.1 Body mass index [BMI] 19.9 or less, adult; M48.56XA Collapsed vertebra, not elsewhere classified, lumbar region, initial encounter for fracture; E86.0 Dehydration; E78.5 Hyperlipidemia, unspecified; D64.9 Anemia, unspecified; R62.7 Adult failure to thrive; F41.9 Anxiety disorder, unspecified; Z85.09 Personal history of malignant neoplasm of other digestive organs; F32.9 Major depressive disorder, single episode, unspecified; B99.8 Other infectious disease; Z66 Do not resuscitate
CPT/HCPCS: 36415; 36430; 58340; 71010; 72131; 73030; 74176; 74181; 75982; 76942; 80048; 80053; 80061; 80076; 80202; 81001; 81003; 82105; 82140; 82270; 82378; 83036; 83605; 83690; 83735; 84100; 84439; 84443; 84484; 85014; 85018; 85025; 85610; 85730; 86301; 86304; 86850; 86900; 86901; 86920; 87040; 87070; 87075; 87081; 93005; 93306; 96361; 96374; 96375; 97116; 97162; 97530; J1940; C1769; C9113; J0690; J0696; J1100; J1170; J1644; J1885; J2250; J2270; J2405; J2543; J2710; J2765; J2920; J2930; J3010; J3370; J3480; J7030; J7040; L0472; P9016; P9047; Q9967

== ENCOUNTER 2017-05-22 15:16 | Outpatient (CLI) | payer OTHER ==
[~2017-05-22] VITALS: Ht 167.6 cm; Wt 45.9 kg
[~2017-05-22 15:16] MED LIST: ACET325T40 PO; APRS IV; DOCU-216 PO; ESCI10TA PO; ESCI10TA48 PO; HYDR2TAB15 PO; IPRA3AMP HHN; LIDO5OI35 TOP; NA P133E3 PR; NIT4 SL; NYST1000 PO; ONDA4VIA2 IV; PANT40TA4 PO; POTA10TA37 PO; UDMOM PO
[2017-05-22 15:45] VITALS: BP 101/61; PULSE 63; RESP 18; Ht 167.6 cm; Wt 45.9 kg
--- NOTE | 2017-05-22 17:48 | PN ---
Date/Time of Note Date/Time of Note DATE: 05/22/17 TIME: 17:24 Assessment/Plan Assessment/Plan Assessment/Plan [facility] Progress Note Date of Service: 05/22/17 Today's Impression & Plan: Overall stable but slowly deteriorating. Ongoing issues with weight loss and elevated t.Bili. In addition, patient and family not happy with [facility] detention and had numerous complaints regarding many aspects of the care given at this detention. From a cholangiocarcinoma standpoint, I believe that patient is presenting a clinical picture consistent with terminal disease with disease progression. It would be important to check and make sure that the percutaneous hepatic drains are in adequate positions and functioning properly. If that is the case and the patient's clinical condition does not improve, then it is doubtful that any therapy would have any meaningful effect. Additionally, he would not be eligible for local therapy to the liver due to elevated bilirubin (around 5 on the last check), and I doubt that he would be eligible for systemic chemotherapy due to his overall deteriorated state. I reviewed this very carefully with the patient and family and answered all their questions to the best my ability. I also did my best to explain to them the limitations of my influence over the medical care, especially care delivered at the detention. I had to explain this to the patient's family several times during this visit. Altogether, I spent more than 30 minutes in [id number] time counseling and answering questions and explaining rationale behind treatment and listening to the patient's and family's concerns regarding all of their complaints. After the visit, I had a conversation with Dr. Barraza who is the main rippler taking care of the patient at the detention and discussed the issues. I also attempted to discuss the case with interventional radiology. Overall the prognosis remains guarded. With above assessment, I've recommended the following for today: 1. Schedule patient for elective percutaneous drain checks with involvement of anesthesia for possible consideration for general anesthesia during the procedure given the patient's significant pain, mainly in his back, seen during the previous drain checks in the office. This will require outpatient observation overnight or perhaps inpatient stay. I asked my office to ask for authorization and will assist in scheduling this procedure. 2. Continue medical management of symptoms 3. Continued involvement of supportive care therapy 4. Agree with family meeting at the detention and to reiterate resource availability and appropriate setting of expectations and goals of therapy Thank you again for your great care of this very pleasant patient and wonderful family. If there are any questions, please feel free to call me at [phone]. Disclaimer: Inadvertent spelling or grammatical errors are likely due to EHR/ dictation software use and do not reflect on the overall quality of patient care. Updated clinical summary: A very pleasant 61-year-old gentleman with significant past medical history including ulcerative colitis status post total proctocolectomy and ileoanal pouch as well as a number of other medical issues who was diagnosed with cholangiocarcinoma and underwent a radical bile duct resection that included extrahepatic bile duct and gallbladder at [facility], 2016, with final diagnosis of cholangiocarcinoma with 1/8 lymph node positive disease as well as low-grade dysplasia and carcinoma in situ at the proximal margin. The patient was readmitted to [facility] after a 2 month hospital stay at [facility] with increasing weakness, jaundice, and diffuse body pain. S/p perc drainage of right biliary system 04/03/17. : s/p placement of left biliary drain which traverses patient's anastomosis on that side. Right system has a tight anastomosis that could not be traversed. R biliary drain upsized 04/12/17. L biliary drain capped . S/p B drain checks 04/30/17 (both open). D/c to SNF ([facility]) on 05/04/17. COMORBIDITIES: 1. History of ulcerative colitis status post total proctocolectomy and ileoanal pouch. 2. Diagnosis of primary sclerosing cholangitis since 2008 being cared for at various institutions such as [facility] and by various physicians with involvement of Dr. Krystian Adkins for hepatology. 3. History of hospitalization at [facility] for bile duct obstruction from mid December to early March with bile duct excision with cholecystectomy with removal of extrahepatic bile duct and Isabell-en-Y hepaticojejunostomy on 07/2017 with the above-mentioned pathology. 4. Chronic back pain, mainly lower, for the last 5 to 6 years. 5. Significant weight loss of more than 20 to 30 pounds over the last 6 months. 6. No history of lymphoma (note that this was reported erroneously in the patient's chart. The patient does not report any history of lymphoma in the past and that is also corroborated by the patient's family). 7. Status post multiple ERCPs and stenting in the past since 2005. 8. Elevated alpha fetoprotein 1.8 in 12/2016. 9. Elevated CA19-9 of 272.9 in 12/2016. 10. Normal CEA at 1.6 on 01/14/2017. 11. Status post sigmoidoscopy, 01/16/2017, showing moderate pouchitis and negative for dysplasia or malignancy. 12. S/p perc drainage of right biliary system 04/03/17. 13. 04/09/17: s/p placement of left biliary drain which traverses patient's anastomosis on that side. Right system has a tight anastomosis that could not be traversed. 14. Compression fracture 04/10/17 Subjective: No major events or complaints post discharge to detention, but several complaints regarding care at the detention; no abd pain; back pain reportedly under control with medications; no n/v/d; no sob or cp; + flatus; + BM; + activity; darkened urine; decreased weight despite increased appetite and oral intake; still complaining of fatigue Objective: Vitals: See below Exam: GENERAL: On exam, the patient was sitting up in a chair and appeared to be comfortable and in no acute distress. ABDOMEN: Soft, nontender, and nondistended. Incisions are clean, dry and intact without any evidence of erythema, edema, discharge, or hernia. R biliary drains bilious with the daily output between 100-200 cc per day. Drain exit site dressing clean and no obvious underlying erythema. L biliary drain capped, and appears slightly pulled out compared to its position during my last visit with the patient in-house. SKIN: Skin appears to be pink and feels warm to touch. NEUROLOGIC: Patient was awake, alert, and followed commands appropriately. Exam/Review of Systems Vital Signs Vitals Vital Signs Date Time Temp Pulse Resp B/P Pulse Ox O2 Delivery O2 Flow Rate FiO2 05/22/17 15:45 98.7 63 18 101/61 98 Room Air ZOE GOYAL M.D. May 22, 2017 17:35
== END 2017-05-22 16:23 | disposition home or self-care (01) ==
LOC: HPC 15:16
PROVIDERS: ATTEND Transplant Surgery
DX: R53.83 Other fatigue (principal); K83.0 Cholangitis; G89.29 Other chronic pain; M54.5 Low back pain; Z85.89 Personal history of malignant neoplasm of other organs and systems
CPT/HCPCS: G0463

== ENCOUNTER 2017-05-29 17:53 | Inpatient (IN) | payer OTHER ==
[~2017-05-29] VITALS: Ht 167.6 cm; Wt 47.2 kg
[~2017-05-29 17:53] MED LIST changes: -HYDR2TAB15 PO; +HYDR2TAB36 PO; +LIDO35.415 TOP; -LIDO5OI35 TOP
[2017-05-30 14:06] VITALS: BP 99/69; PULSE 69; RESP 18
[2017-05-30 15:26] VITALS: Ht 167.6 cm; Wt 47.2 kg
[2017-05-30 16:07] VITALS: BP 106/64; RESP 18
[2017-05-30 16:35] VITALS: PULSE 79
[2017-05-30] MEDS ORDERED: ONDANSETRON 4 MG INJ IV PRN (17:30)
[2017-05-30] MEDS ORDERED: MAGNESIUM HYDROXIDE 30ML CUP PO PRN (17:30)
[2017-05-30] MEDS ORDERED: DOCUSATE SODIUM 100 MG CAP PO PRN (17:30)
[2017-05-30] MEDS ORDERED: NITROGLYCERIN (SL) 0.4 MG TAB SL PRN (17:30)
[2017-05-30] MEDS ORDERED: NACL 0.9% 3 ML SYG IV SCH (17:30)
[2017-05-30] MEDS ORDERED: NA PHOSPHATE/BIPHOS 133 ML ENEMA PR PRN (17:30)
--- NOTE | 2017-05-30 17:31 | HP ---
Date/Time of Note Date/Time of Note DATE: 05/30/17 TIME: 17:25 Assessment/Plan VTE Prophylaxis VTE Prophylaxis Intervention: SCD's Assessment/Plan Chief Complaint/Hosp Course 1. Metastatic cholangiocarcinoma with metastasis to the liver and lymph nodes. Status post cholecystectomy and excision of hepatic common bile duct with Isabell -en-Y hepaticojejunostomy on 01/24/2017. 2. History of Crohn's disease status post a proctocolectomy with J-pouch creation in 2005. 3. History of chronic primary sclerosing cholangitis. 4. Chronic back pain. Lumbar spine CT showing osteopenia with mild L2 compression fracture. Continue on analgesics. 5. Protein calorie malnutrition. Severe. Dietary supplements. 6. Normocytic normochromic anemia, most probably anemia of chronic disease. Monitor H and H closely. 7. Depression. Continue Lexapro. 8. Status post placement of left biliary drain on 04/09/2017. To be evaluated by interventional radiology on 05/31/2017. 9. Status post placement of a right biliary drain on 03/24/2017. To be evaluated by interventional radiology on 05/31/2017. Plan: The patient will be admitted to inpatient telemetry floor. The patient will be started on a regular diet. The patient will be started on DVT prophylaxis and gastrointestinal prophylaxis. The patient will remain a full code. Activities will be as tolerated. The rest of the patient's management will be based on the clinical course, input from consultants, and the results of diagnostic studies. The plan is to check and evaluate and possibly replace biliary drains. Based on the patient's clinical presentation, he most probably requires at least 1 midnights stay for further management and evaluation of his clinical presentation. The case and management of this patient was fully discussed with . Problems: HPI/ROS Admit Date/Time Admit Date/Time May 30, 2017 at 13:45 Hx of Present Illness This is an unfortunate 62-year-old male patient with past medical history metastatic lung carcinoma with metastasis to the liver and lymph nodes, status post cholecystectomy and excision of hepatic common bile duct with Rituxan Y hepaticojejunostomy on 01/24/2017. The patient was discharged from [facility] after prolonged hospital stay on 05/04/2017 to a senior living facility. The patient is also status post placement of a left biliary drain on 04/09/2017 and a right biliary drain on 03/24/2017. The patient is being brought back to [facility] for exchange of the drains. ROS Constitutional: no complaints Eyes: no complaints ENT: no complaints Respiratory: no complaints Cardiovascular: no complaints Gastrointestinal: pain Genitourinary: no complaints Musculoskeletal: back pain Skin: no complaints Neurologic: no complaints Endocrine: no complaints Lymphatic: no complaints Psychological: depression Immunologic: no complaints PMH/Family/Social Past Medical History 1. Metastatic cholangiocarcinoma with metastasis to the liver and lymph nodes. 2. Crohn's disease. 3. Chronic primary sclerosing cholangitis. 4. Chronic back pain from L2 compression fracture. 5. Protein calorie malnutrition. 6. Anemia. 7. Depression. Medical History: other Past Surgical History 1. Cholecystectomy and excision of hepatic common bile duct with Isabell-en-Y hepaticojejunostomy on 01/24/2017. 2. Proctocolectomy with J-pouch creation in 2005. 3. Placement of left biliary drain on 04/09/2017. 4. Placement of a right biliary drain on 03/24/2017, Social History . Alcohol Use: none Smoking Status: Never smoker Drug Use: none Exam/Review of Systems Vital Signs Vitals Vital Signs Date Time Temp Pulse Resp B/P Pulse Ox O2 Delivery O2 Flow Rate FiO2 05/30/17 16:35 79 05/30/17 16:07 98.6 18 106/64 99 05/30/17 14:06 Room Air Exam Exam General: Thin, fragile 62 year-old male lying in bed in no apparent distress. HEENT: Normocephalic, atraumatic. Eyes: Anicteric sclerae, conjunctivae clear. ENT: Nasal septum midline, oral mucosa moist. Neck supple, no JVD noticed. Respiratory: Bilaterally clear breath sounds. No use of accessory muscles of respiration. No adventitious breath sounds. Cardiovascular: S1, S2 heard. No murmurs or gallops. Abdomen: Multiple surgical scars. Right-sided biliary drain draining a brown clear fluid. Left-sided biliary drain clamped. Genitourinary: Deferred. Extremities: No cyanosis, no clubbing, no edema. Peripheral pulses palpable. Neurologic: Cranial nerves II through XII grossly intact. The patient is awake, alert, and oriented. Skin: Normal skin turgor. No skin rashes. Medications Medications Current Medications Docusate Sodium (Colace) 100 mg Q12H PRN PO CONSTIPATION; Start 05/30/17 at 17: 30 Escitalopram Oxalate (Lexapro) 20 mg DAILY PO ; Start 05/31/17 at 09:00 Magnesium Hydroxide (Milk Of Mag) 30 ml DAILY PRN PO CONSTIPATION; Start at 17:30 Sodium Biphosphate/ Sodium Phosphate (Fleet Enema) 133 ml DAILY PRN RI CONSTIPATION; Start 05/30/17 at 17:30 Nitroglycerin (Nitroglycerin (Sl Tab) 0.4 Mg) 1 tab Q5M PRN SL ANGINA; Start at 17:30 Pantoprazole 40 mg 40 mg DAILY@06 PO ; Start 05/31/17 at 06:00 Dextrose/Sodium Chloride (D5-1/2ns) 1,000 ml @ 60 mls/hr [id number] IV ; Start at 00:00; Status UNV Ondansetron HCl (Zofran Inj) 4 mg Q6H PRN IV NAUSEA AND/OR VOMITING; Start at 17:30; Status UNV Hydromorphone HCl (Dilaudid) 0.5 mg Q4H PRN IV PAIN LEVEL 7-10; Start 05/30/17 at 17:30; Status UNV LINDA HOLLIS NP May 30, 2017 17:31 LINDA HOLLIS NP May 30, 2017 17:31 LINDA HOLLIS NP May 30, 2017 17:31
[2017-05-30 18:11] LABS: ADD SCAN DIFF NO
[2017-05-30 18:13] LABS: BASOPHIL # 0.1 10^3/ul (0.0-0.1); BASOPHILS % 0.8 % (0.0-2.0); EOSINOPHILS # 0.3 10^3/ul (0.0-0.5); EOSINOPHILS % 2.4 % (0.0-7.0); HEMATOCRIT 34.7 % (42.0-52.0); HEMOGLOBIN 11.2 g/dl (14.0-18.0); LYMPHOCYTES # 1.6 10^3/ul (0.8-2.9); LYMPHOCYTES % 12.2 % (15.0-51.0); MEAN CORPUSCULAR HEMOGLOBIN 31.4 pg (29.0-33.0); MEAN CORPUSCULAR HGB CONC 32.3 g/dl (32.0-37.0); MEAN CORPUSCULAR VOLUME 97.2 fl (82.0-101.0); MEAN PLATELET VOLUME 8.5 fl (7.4-10.4); MONOCYTES % 7.8 % (0.0-11.0); NEUTROPHIL # 9.8 10^3/ul (1.6-7.5); NEUTROPHILS % 76.3 % (39.0-77.0); PLATELET COUNT 653 10^3/UL (140-415); RED BLOOD COUNT 3.57 10^6/ul (4.70-6.10); RED CELL DISTRIBUTION WIDTH 16.4 % (11.5-14.5); WHITE BLOOD COUNT 12.8 10^3/ul (4.8-10.8)
[2017-05-30 18:32] LABS: INR 1.61; PROTIME 19.3 Sec (12.2-14.2); PT RATIO 1.5
[2017-05-30 18:33] LABS: AMYLASE 116 U/L (11-123); PARTIAL THROMBOPLASTIN TIME 42.5 Sec (25.0-35.0)
[2017-05-30 18:35] LABS: ALBUMIN 3.8 g/dl (3.3-4.9); ALBUMIN/GLOBULIN RATIO 0.82; BILIRUBIN,DIRECT 0.7 mg/dl (0.00-0.20); BILIRUBIN,INDIRECT 0.9 mg/dl (0-1.1); BILIRUBIN,TOTAL 1.6 mg/dl (0.2-1.3); CALCIUM 9.4 mg/dl (8.4-10.2); CREATININE 0.61 mg/dl (0.61-1.24); MAGNESIUM 1.7 mg/dl (1.7-2.5); PHOSPHORUS 3.4 mg/dl (2.5-4.9); POTASSIUM 3.8 mmol/L (3.5-5.1); TOTAL PROTEIN 8.4 g/dl (6.1-8.1)
[2017-05-30 20:00] VITALS: PULSE 71
[2017-05-30 21:12] VITALS: BP 89/54; RESP 16
[2017-05-30] MEDS: DEXTROSE 5%-0.45% NACL 1,000 ML IV SCH (21:32)
[2017-05-30] MEDS: traMADol 50 MG TAB PO PRN (21:32)
[2017-05-31] VITALS (15 sets, daily range): BP systolic 92–118; BP diastolic 54–72; PULSE 57–110; RESP 14–18
[2017-05-31] MEDS: DEXTROSE 5%-0.45% NACL 1,000 ML IV SCH ×2 (01:29→16:40)
[2017-05-31] MEDS: PANTOPRAZOLE (EC) 40 MG TAB PO SCH (06:00)
[2017-05-31] MEDS ORDERED: IOHEXOL 300MG/ML 30 ML BTL ONE (08:09)
[2017-05-31] MEDS ORDERED: LIDOCAINE 1% (MPF) 30 ML INJ ONE (08:11)
[2017-05-31] MEDS ORDERED: FENTAnyl 50 MCG/ML VIAL ONE (08:46)
[2017-05-31] MEDS ORDERED: PROPOFOL 100 ML ONE (08:46)
[2017-05-31] MEDS ORDERED: MIDAZOLAM 1 MG/ML 2 ML INJ ONE ×2 (08:46→09:29)
[2017-05-31] MEDS: ESCITALOPRAM 10 MG TAB PO SCH (09:00)
[2017-05-31] MEDS ORDERED: LIDOCAINE 1% (MDV) 20 ML INJ ONE (09:06)
[2017-05-31] MEDS ORDERED: CEFAZOLIN 1 GM INJ ONE (09:34)
[2017-05-31] MEDS ORDERED: EPHEDrine SULFATE 50 MG/5 ML SYG ONE (09:40)
[2017-05-31] MEDS: HYDROmorphONE 1 MG/ML SYG IV PRN ×3 (10:25→23:08)
--- NOTE | 2017-05-31 10:57 | RADRPT ---
PROCEDURE: Fluoroscopic guided internal external biliary drainage with stent placement and transhe patic cholangiogram. CLINICAL INDICATION: Biliary obstruction. TECHNIQUE: Prior to the procedure, informed consent was obtained. Risks including bleeding and inf ection were explained to the patient. The patient understood and was willing to proceed. A procedura l pause was performed. The patient's name, date of , and procedure to be performed were verifie d. The procedure was performed in the operating room. The right upper quadrant of the abdomen and t he existing biliary drainage catheter were prepped and draped in the usual sterile fashion. Cholangiogram was performed. Contrast was injected into the existing biliary drainage catheter and digital images were obtained. The catheter is within the right intrahepatic bile duct. Contrast en ters the bowel via a thin anastomosis. A left-sided internal external biliary drainage catheter is p resent in satisfactory position. Multiple surgical clips are present in the upper abdomen. 1% lidocaine was injected around the existing catheter. The catheter was removed over a 0.035 inch guidewire. A Kumpe catheter was then advanced over the guide wire, and the 0.035 inch Glidewire was then advanced through a stenotic lesion in the distal common bile duct and into the bowel. The Kump e catheter was advanced over the guidewire, the guide wire was removed, and contrast was injected, o pacifying the bowel. A new 10-Armenian internal external biliary drainage catheter was then advanced o radha the guide wire such that the distal pigtail was in the duodenum and side holes were present in t he common bile duct and right intrahepatic bile ducts. The catheter was then secured to the patient 's skin with 2-0 silk. The drainage catheter was then connected to a standard gravity drainage bag. Contrast was then injected into the left internal external biliary drainage catheter. A total of 200 seconds of fluoroscopy time was used. 10 images were obtained with the image intensif ier. COMPARISON: Cholangiogram dated 04/30/2017.. FINDINGS: Final images demonstrate the right sided internal external biliary drainage catheter in satisfactory position. With contrast injected into the left-sided internal external biliary drainage catheter t his is also noted in satisfactory position. IMPRESSION: 1. Satisfactory placement of right-sided internal external biliary drainage catheter. RPTAT: QQ .Talat Grijalva MD, MD Date Time Electronically viewed and signed by .Talat Grijalva MD, on 05/31/2017 10:57 .R/
--- NOTE | 2017-05-31 14:32 | PN ---
Date/Time of Note Date/Time of Note DATE: 05/31/17 TIME: 14:31 Assessment/Plan VTE Prophylaxis VTE Prophylaxis Intervention: SCD's Lines/Catheters IV Catheter Type (from Nrs): Peripheral IV Assessment/Plan Assessment/Plan 62 yo M with h/o crohns sp proctocolectomy and JPouch creation 2006, primary sclerosing cholangitis, stage 4 cholangioCa with mets to liver and LAD sp cholecystectomy and excision of hepatic CBD with renee-en-Y hepaticojejunostomy 3.17 complicated by biliary obstruction warranting bl biliary drain placement admitted for hyperbilirubinemia and concern for biliary drain malfunction. Pt underwent cholangiogram this AM during which R sided drain found to not be functioning optimally and was replaced. PLAN cont home meds RD eval per gen surg rec discharge back to SNF in AM-->CM aware general diet DVT prophx Subjective 24 Hr Interval Summary Free Text/Dictation Had R sided biliary stent replaced earlier this AM by IR and already starting to feel a little better Exam/Review of Systems Vital Signs Vitals Vital Signs Date Time Temp Pulse Resp B/P Pulse Ox O2 Delivery O2 Flow Rate FiO2 05/31/17 12:17 85 05/31/17 11:43 97.5 18 95/63 100 05/31/17 10:36 Room Air Intake and Output 05/30/17 05/30/17 05/31/17 15:00 23:00 07:00 Intake Total 200 ml 400 ml Balance 200 ml 400 ml Exam cachectic responds to questions appropriately no abd distension no LE edema +R biliary drain with dark contents IR report reviewed Results Result Diagram: 05/30/17 1758 05/30/17 1758 Results 24 hrs Laboratory Tests Test 05/30/17 17:58 White Blood Count 12.8 #H Red Blood Count 3.57 L Hemoglobin 11.2 L Hematocrit 34.7 L Mean Corpuscular Volume 97.2 Mean Corpuscular Hemoglobin 31.4 Mean Corpuscular Hemoglobin Concent 32.3 Red Cell Distribution Width 16.4 H Platelet Count 653 #H Mean Platelet Volume 8.5 Neutrophils % 76.3 Lymphocytes % 12.2 L Monocytes % 7.8 Eosinophils % 2.4 Basophils % 0.8 Nucleated Red Blood Cells % 0.0 Neutrophils # 9.8 H Lymphocytes # 1.6 Monocytes # 1.0 H Eosinophils # 0.3 Basophils # 0.1 Nucleated Red Blood Cells # 0.0 Prothrombin Time 19.3 H Prothrombin Time Ratio 1.5 INR International Normalized Ratio 1.61 Activated Partial Thromboplast Time 42.5 H Sodium Level 133 L Potassium Level 3.8 Chloride Level 98 Carbon Dioxide Level 27 Anion Gap 12 Blood Urea Nitrogen 11 Creatinine 0.61 Glucose Level 93 Lactic Acid Level 1.2 Calcium Level 9.4 Phosphorus Level 3.4 Magnesium Level 1.7 Total Bilirubin 1.6 H Direct Bilirubin 0.70 H Indirect Bilirubin 0.9 Aspartate Amino Transf (AST/SGOT) 68 H Alanine Aminotransferase (ALT/SGPT) 53 Alkaline Phosphatase 578 H Total Protein 8.4 H Albumin 3.8 Globulin 4.60 H Albumin/Globulin Ratio 0.82 Amylase Level 116 Lipase 44 Medications Medications Current Medications Docusate Sodium (Colace) 100 mg Q12H PRN PO CONSTIPATION; Start 05/30/17 at 17: 30 Escitalopram Oxalate (Lexapro) 20 mg DAILY PO ; Start 05/31/17 at 09:00 Magnesium Hydroxide (Milk Of Mag) 30 ml DAILY PRN PO CONSTIPATION; Start at 17:30 Sodium Biphosphate/ Sodium Phosphate (Fleet Enema) 133 ml DAILY PRN DE CONSTIPATION; Start 05/30/17 at 17:30 Nitroglycerin (Nitroglycerin (Sl Tab) 0.4 Mg) 1 tab Q5M PRN SL ANGINA; Start at 17:30 Pantoprazole 40 mg 40 mg DAILY@06 PO Last administered on 05/31/17 06:00; Admin Dose 40 MG; Start 05/31/17 at 06:00 Dextrose/Sodium Chloride (D5-1/2ns) 1,000 ml @ 60 mls/hr [id number] IV Last administered on 05/31/17 01:29; Admin Dose 60 MLS/HR; Start 05/31/17 at 00:00 Ondansetron HCl (Zofran Inj) 4 mg Q6H PRN IV NAUSEA AND/OR VOMITING; Start at 17:30 Hydromorphone HCl (Dilaudid) 0.5 mg Q4H PRN IV PAIN LEVEL 7-10 Last administered on 05/31/17 10:25; Admin Dose 0.5 MG; Start 05/30/17 at 17:30 Tramadol HCl (Ultram) 50 mg Q6H PRN PO Pain Last administered on 05/30/17t 21: 32; Admin Dose 50 MG; Start 05/30/17 at 18:00 VALE CHANG MD May 31, 2017 14:32
--- NOTE | 2017-05-31 18:15 | CONS ---
Date/Time of Note Date/Time of Note DATE: 05/31/17 TIME: 13:14 Assessment/Plan Assessment/Plan Additional Assessment/Plan [facility] INPATIENT CONSULTATION NOTE DATE OF CONSULTATION: 05/31/2017 PLACE OF SERVICE: [facility] 5th floor. ASSESSMENT AND PLAN: A very pleasant but unfortunate 62-year-old gentleman, well-known to me from February 2017 for management of stage III/stage IV cholangiocarcinoma, admitted for scheduled percutaneous biliary drain checks which has fortunately resulted in positioning of the right-sided PTC through the anastomosis and confirmation of adequate positioning of the left-sided PTC. Today successful drain check and positioning will hopefully afford the patient a better chance for higher quality of life as well as potentially getting him stronger for further therapy for his malignancy. With 50% of his bile production going back into his intestines, I am hopeful that the patient will be able to absorb more of his food and be able to replenish his nutritional sources in his body and therefore get stronger for potential systemic chemotherapy. Given his bilirubin level of less than 2, he is also eligible for local therapy to the liver in the form of transarterial chemoembolization (TACE). I explained all the above to the patient and his friend in detail and answered all their questions to the best my ability. They appeared to understand and agreed with the plans. With above assessment, I recommend the followin. Keep in-house for today 2. Cap the right-sided PTC 3. Normal saline flush, 10 cc to each PTC once a day; similar instructions to be passed on to next level of care at the assisted 4. Labs in a.m. 5. Dietitian consultation with emphasis on high caloric intake diet with goals of weight gain if possible 6. If clinically stable tomorrow and labs acceptable, to discharge back to the assisted 7. I will ask my office to assist with the process of obtaining authorization for TACE as well as outpatient consultation 8. Follow-up with my office in 2-3 weeks Thank you again for allowing me to participate in the care of this very pleasant gentleman and his wonderful family. If there are any questions, please feel free to contact me at [phone]. Please note that, given the multiple number of diagnoses or management options, the moderate to extensive amount and/or complexity of data needed to be reviewed , and high risk of complications and/or morbidity or mortality, this qualifies as moderate complexity type of decision-making. Updated clinical summary: A very pleasant 61-year-old gentleman with significant past medical history including ulcerative colitis status post total proctocolectomy and ileoanal pouch as well as a number of other medical issues who was diagnosed with cholangiocarcinoma and underwent a radical bile duct resection that included extrahepatic bile duct and gallbladder at [facility], 2016, with final diagnosis of cholangiocarcinoma with 1/8 lymph node positive disease as well as low-grade dysplasia and carcinoma in situ at the proximal margin. The patient was readmitted to [facility] after a 2 month hospital stay at [facility] with increasing weakness, jaundice, and diffuse body pain. S/p perc drainage of right biliary system 04/03/17. : s/p placement of left biliary drain which traverses patient's anastomosis on that side. Right system has a tight anastomosis that could not be traversed. R biliary drain upsized 04/12/17. L biliary drain capped . S/p B drain checks 04/30/17 (both open). D/c to SNF ([facility]) on 05/04/17. Readmitted to [facility] on 05/31/2017 for PTC checks and repositioning. COMORBIDITIES: 1. History of ulcerative colitis status post total proctocolectomy and ileoanal pouch. 2. Diagnosis of primary sclerosing cholangitis since 2008 being cared for at various institutions such as [facility] and by various physicians with involvement of Dr. Krystian Adkins for hepatology. 3. History of hospitalization at [facility] for bile duct obstruction from mid December to early March with bile duct excision with cholecystectomy with removal of extrahepatic bile duct and Isabell-en-Y hepaticojejunostomy on 07/2017 with the above-mentioned pathology. 4. Chronic back pain, mainly lower, for the last 5 to 6 years. 5. Significant weight loss of more than 20 to 30 pounds over the last 6 months. 6. No history of lymphoma (note that this was reported erroneously in the patient's chart. The patient does not report any history of lymphoma in the past and that is also corroborated by the patient's family). 7. Status post multiple ERCPs and stenting in the past since 2005. 8. Elevated alpha fetoprotein 1.8 in 12/2016. 9. Elevated CA19-9 of 272.9 in 12/2016. 10. Normal CEA at 1.6 on 01/14/2017. 11. Status post sigmoidoscopy, 01/16/2017, showing moderate pouchitis and negative for dysplasia or malignancy. 12. S/p perc drainage of right biliary system 04/03/17. 13. 04/09/17: s/p placement of left biliary drain which traverses patient's anastomosis on that side. Right system has a tight anastomosis that could not be traversed. 14. Compression fracture 04/10/17 CONSULTING PHYSICIAN: Belén Andrew MD HISTORY OF PRESENT ILLNESS: The patient is a very pleasant but unfortunate 62- year-old gentleman with above-mentioned history whom we are kindly asked to consult regarding management of his biliary system. I had seen the patient in my office recently and we had planned this admission for bilateral PTC checks as well as possible repositioning of the right PTC through the anastomosis to hopefully be able to eliminate the need for the last remaining biliary bag for the patient. When I saw the patient, he had already had the procedure and fortunately we were able to accomplish all the goals that we had set in the office through the expert care of Dr. Grijalva (much appreciated). Patient did not have any major complaints and only reported mild to moderate discomfort at the insertion site of the right PTC. He continues to have difficulty gaining weight , and has had fair appetite in the last number of weeks. No reported fevers, chills, nausea, vomiting, or issues with diarrhea more than his usual. He reported having approximately 5-6 stools per day, which is fairly acceptable given his inflammatory bowel disease and history of proctocolectomy with ileoanal pouch anastomosis. ALLERGIES: NO KNOWN DRUG ALLERGIES. HOME MEDICATIONS: Documented in the electronic records and reviewed by me. Please see the electronic records for details, as well as details for inpatient medications which were also reviewed by me. SOCIAL HISTORY: The patient is currently retired/disabled and unable to work. He does not report any significant smoking, drinking, or intravenous drug use currently, and also does not endorse a heavy history of such in the past. The patient has a sister who lives [place] [facility] [place] and he has an ex- as well as a friend for the last 45 years who are his main social support and present during the interview. FAMILY HISTORY: There is history of malignancy in the family as well as possible dementia. No mention of other major medical, surgical, or oncologic issues in the family. REVIEW OF SYSTEMS: Other than the above-mentioned, there are no other pertinent positives or pertinent negatives in a complete 14-point review of systems. PHYSICAL EXAMINATION: GENERAL: The patient appears to be a very pleasant gentleman, appearing older than stated age, laying in bed in no acute distress and comfortable. BMI 16.8 (previously 17.18 Mar 2017). He is cachectic appearing. VITAL SIGNS: Include temperature of 98.0, blood pressure 118/72, pulse 57, respirate 14, pulse oximetry 99% on room air. HEENT: Normocephalic and atraumatic. Extraocular muscles and hearing are grossly intact bilaterally and symmetrically. Sclerae are nonicteric. Oral cavity is clear; oral mucosa appeared to be pink and moist. Dentition: fair to poor. NECK: Supple. There is no lymphadenopathy or JVD. There is no submental, submandibular or supraclavicular lymphadenopathy. CHEST: Rises symmetrically with each breath; patient is breathing comfortably. There are no audible wheezes, rales or rhonchi on the gross exam. HEART: Pulse is regular and palpable on the left wrist. Capillary refill was normal. Carotid pulses are palpable bilaterally and symmetrically in the neck. EXTREMITIES: Lower extremities contain no pitting edema around the ankles bilaterally and symmetrically. ABDOMEN: Shows a well-healed midline incision as well as a right lower transverse incision, both of which are from his time of colectomy and his temporary ostomy that he had. He also has a right upper quadrant subcostal incision that appears to be intact without any evidence of erythema, edema, discharge, or hernia. There is mild tenderness to palpation around the area of insertion of right-sided PTC. The right-sided PTCs connected to a bag and there is bilious output within it. Left-sided PTC is capped and the site of insertion is not particularly tender. There is no evidence of organomegaly, caput medusae, engorged subcutaneous veins, or ascites. There is no evidence of peritoneal signs or guarding. SKIN: Appears to be pink and feels warm to touch. NEUROLOGIC: Awake, alert, and follows commands appropriately. LABORATORY DATA: Labs 05/31/2017: White blood cell count 12.8, hemoglobin 11.2, platelets 653. : Sodium 133, CO2 27, creatinine 0.61, lactic acid 1.2, total bilirubin 1.6, AST 68, ALT 53, alkaline phosphatase 578. Albumin 3.8. Amylase 116, lipase 44. INR 1.61. Labs in March 2017: White blood cell count 11.2, down from 21.1 on admission, hemoglobin 8.7, platelets 634. Electrolytes are normal. CO2 of 23, creatinine 0.62. Total bilirubin 2.4, alkaline phosphatase 1245, AST 105, ALT 102. Albumin 2.2 and that is after hydration. CEA 2.0, CA 19-9 of 1420, CA 125 of 54.8. His initial bilirubin on admission was 4.8. INR 1.5. Urinalysis showed 3+ bilirubin, but negative leukocyte esterase or nitrite. Blood cultures from 03/30/2017 were negative. IMAGING: Fluoroscopic guided internal/external biliary drainage with stent placement and transhepatic cholangiogram 05/31/2017 at [facility] IMPRESSION: 1. Satisfactory placement of right-sided internal external biliary drainage catheter. The patient had an abdominal and pelvic CT on 03/30/2017 without contrast that showed extensive postsurgical changes involving the bowel loops throughout the abdominal pelvic cavity including the right upper quadrant, small bowel, and the distal sigmoid colon and rectum. There was also significant intrahepatic biliary dilatation with increased density in the central periportal region of the liver. Underlying infiltrative mass lesion should be considered. Further evaluation with liver MRI with contrast was recommended for more complete assessment. Also, scattered benign chronic changes seen elsewhere throughout the study. The patient underwent an MRI of the abdomen on 03/31/2017 without contrast that showed a lobular area of elevated T2 signal seen in the central liver worrisome for a mass, possibly cholangiocarcinoma, and this mass could possibly be causing prominent intrahepatic biliary ductal dilatation of both the left and right intrahepatic biliary ducts with central loss of signal at the area of the mass. There is prominent hepatomegaly seen with findings suggestive of portal hypertension. Mild ascites was seen. Surgical changes of the bowels seen with no evidence of obstruction. There was a fecal filled colon mentioned as well. Atherosclerotic disease was noted. Note that I personally reviewed all the above images and I agree in general with their overall reported findings with the exception of lack of obvious colon and evidence of infiltrative mass in the central portion of the liver causing possible involvement of the second order branches of the biliary system essentially creating isolated anterior and posterior sectoral biliary systems on the right and isolated segment 4 and 2/3 on the left. Consultation Date/Type/Reason Admit Date/Time May 30, 2017 at 13:45 Eyes: no complaints ENT: no complaints Respiratory: no complaints Cardiovascular: no complaints Gastrointestinal: pain Genitourinary: no complaints Musculoskeletal: back pain Skin: no complaints Neurologic: no complaints Lymphatic: no complaints Psychological: depression Immunologic: no complaints Past Medical History Medical History: other Social History Alcohol Use: none Smoking Status: Never smoker Drug Use: none Exam/Review of Systems Vital Signs Vitals Vital Signs Date Time Temp Pulse Resp B/P Pulse Ox O2 Delivery O2 Flow Rate FiO2 05/31/17 16:19 110 05/31/17 16:17 98.1 18 101/65 100 05/31/17 10:36 Room Air Intake and Output 05/30/17 05/30/17 05/31/17 15:00 23:00 07:00 Intake Total 200 ml 400 ml Balance 200 ml 400 ml Results Result Diagram: 05/30/17 1758 05/30/17 1758 Medications Medications Current Medications Docusate Sodium (Colace) 100 mg Q12H PRN PO CONSTIPATION; Start 05/30/17 at 17: 30 Escitalopram Oxalate (Lexapro) 20 mg DAILY PO ; Start 05/31/17 at 09:00 Magnesium Hydroxide (Milk Of Mag) 30 ml DAILY PRN PO CONSTIPATION; Start at 17:30 Sodium Biphosphate/ Sodium Phosphate (Fleet Enema) 133 ml DAILY PRN [place] CONSTIPATION; Start 05/30/17 at 17:30 Nitroglycerin (Nitroglycerin (Sl Tab) 0.4 Mg) 1 tab Q5M PRN SL ANGINA; Start at 17:30 Pantoprazole 40 mg 40 mg DAILY@06 PO Last administered on 05/31/17 06:00; Admin Dose 40 MG; Start 05/31/17 at 06:00 Dextrose/Sodium Chloride (D5-1/2ns) 1,000 ml @ 60 mls/hr [id number] IV Last administered on 05/31/17 16:40; Admin Dose 60 MLS/HR; Start 05/31/17 at 00:00 Ondansetron HCl (Zofran Inj) 4 mg Q6H PRN IV NAUSEA AND/OR VOMITING; Start at 17:30 Hydromorphone HCl (Dilaudid) 0.5 mg Q4H PRN IV PAIN LEVEL 7-10 Last administered on 05/31/17 16:34; Admin Dose 0.5 MG; Start 05/30/17 at 17:30 Tramadol HCl (Ultram) 50 mg Q6H PRN PO Pain Last administered on 05/30/17 21: 32; Admin Dose 50 MG; Start 05/30/17 at 18:00 ZOE GOYAL M.D. May 31, 2017 18:15
--- NOTE | 2017-05-31 20:48 | CONS ---
Date/Time of Note Date/Time of Note DATE: 05/31/17 TIME: 20:47 Consultation Date/Type/Reason Admit Date/Time May 30, 2017 at 13:45 Eyes: no complaints ENT: no complaints Respiratory: no complaints Cardiovascular: no complaints Gastrointestinal: pain Genitourinary: no complaints Musculoskeletal: back pain Skin: no complaints Neurologic: no complaints Lymphatic: no complaints Psychological: depression Immunologic: no complaints Past Medical History Medical History: other Social History Alcohol Use: none Smoking Status: Never smoker Drug Use: none Exam/Review of Systems Vital Signs Vitals Vital Signs Date Time Temp Pulse Resp B/P Pulse Ox O2 Delivery O2 Flow Rate FiO2 05/31/17 20:41 98.6 61 16 97/57 99 05/31/17 10:36 Room Air Intake and Output 05/30/17 05/30/17 05/31/17 15:00 23:00 07:00 Intake Total 200 ml 400 ml Balance 200 ml 400 ml Results Result Diagram: 05/30/17 1758 05/30/17 1758 Medications Medications Current Medications Docusate Sodium (Colace) 100 mg Q12H PRN PO CONSTIPATION; Start 05/30/17 at 17: 30 Escitalopram Oxalate (Lexapro) 20 mg DAILY PO ; Start 05/31/17 at 09:00 Magnesium Hydroxide (Milk Of Mag) 30 ml DAILY PRN PO CONSTIPATION; Start at 17:30 Sodium Biphosphate/ Sodium Phosphate (Fleet Enema) 133 ml DAILY PRN [place] CONSTIPATION; Start 05/30/17 at 17:30 Nitroglycerin (Nitroglycerin (Sl Tab) 0.4 Mg) 1 tab Q5M PRN SL ANGINA; Start at 17:30 Pantoprazole 40 mg 40 mg DAILY@06 PO Last administered on 05/31/17 06:00; Admin Dose 40 MG; Start 05/31/17 at 06:00 Dextrose/Sodium Chloride (D5-1/2ns) 1,000 ml @ 60 mls/hr [id number] IV Last administered on 05/31/17 16:40; Admin Dose 60 MLS/HR; Start 05/31/17 at 00:00 Ondansetron HCl (Zofran Inj) 4 mg Q6H PRN IV NAUSEA AND/OR VOMITING; Start at 17:30 Hydromorphone HCl (Dilaudid) 0.5 mg Q4H PRN IV PAIN LEVEL 7-10 Last administered on 05/31/17 16:34; Admin Dose 0.5 MG; Start 05/30/17 at 17:30 Tramadol HCl (Ultram) 50 mg Q6H PRN PO Pain Last administered on 05/30/17 21: 32; Admin Dose 50 MG; Start 05/30/17 at 18:00 KIN ESTEBAN MD May 31, 2017 20:47
--- NOTE | 2017-05-31 20:48 | CONS ---
Date/Time of Note Date/Time of Note DATE: 05/31/17 TIME: 20:48 Assessment/Plan Assessment/Plan Chief Complaint/Hosp Course Metastatic cholangiocarcinoma to lymph node. postop , NOW WITH Metastatic dis in the liver h/o crohns sp proctocolectomy and JPouch creation 2006, primary sclerosing cholangitis, stage 4 cholangioCa with mets to liver and LAD sp cholecystectomy and excision of hepatic CBD with renee-en-Y hepaticojejunostomy 3.17 complicated by biliary obstruction warranting bl biliary drain placement admitted for hyperbilirubinemia and concern for biliary drain malfunction. POST cholangiogram this AM during which R sided drain found to not be functioning optimally and was replaced. Chronic Crohn's disease status post total proctocolectomy with J-pouch creation 2005. Chronic primary sclerosing cholangitis w cholangiocarcinoma. Needs advanced care planning evaluated. Poor prognosis. Performance status questionable at this time for chemotherapy & bilirubin needs some improvement. Malnutrition; oral feeds/Megace vs TPN Failure to thrive, may need snf Anemia- MONITOR Reactive thrombocytosis Dyslipidemia. POOR PS Problems: Consultation Date/Type/Reason Admit Date/Time May 31, 2017 at 00:06 Initial Consult Date 05/31/17 Type of Consultation: HEMEON Referring Provider: LINDA HOLLIS NP 24 HR Interval Summary Free Text/Dictation 62 yo M with h/o crohns sp proctocolectomy and JPouch creation 2006, primary sclerosing cholangitis, stage 4 cholangioCa with mets to liver and LAD sp cholecystectomy and excision of hepatic CBD with renee-en-Y hepaticojejunostomy 3.17 complicated by biliary obstruction warranting bl biliary drain placement admitted for hyperbilirubinemia and concern for biliary drain malfunction. Pt underwent cholangiogram this AM during which R sided drain found to not be functioning optimally and was replaced. Had R sided biliary stent replaced earlier this AM by IR and already starting to feel a little better Exam/Review of Systems Vital Signs Vitals Vital Signs Date Time Temp Pulse Resp B/P Pulse Ox O2 Delivery O2 Flow Rate FiO2 05/31/17 20:41 98.6 61 16 97/57 99 05/31/17 10:36 Room Air Intake and Output 05/30/17 05/30/17 05/31/17 15:00 23:00 07:00 Intake Total 200 ml 400 ml Balance 200 ml 400 ml Exam GENERAL: The patient appears to be a very pleasant gentleman, appearing older than stated age, laying in bed in no acute distress and comfortable. BMI 16.8 (previously 17.18 Mar 2017). He is cachectic appearing. HEENT: Normocephalic and atraumatic. Extraocular muscles and hearing are grossly intact bilaterally and symmetrically. Sclerae are nonicteric. Oral cavity is clear; oral mucosa appeared to be pink and moist. Dentition: fair to poor. NECK: Supple. There is no lymphadenopathy or JVD. There is no submental, submandibular or supraclavicular lymphadenopathy. CHEST: Rises symmetrically with each breath; patient is breathing comfortably. There are no audible wheezes, rales or rhonchi on the gross exam. HEART: Pulse is regular and palpable on the left wrist. Capillary refill was normal. Carotid pulses are palpable bilaterally and symmetrically in the neck. EXTREMITIES: Lower extremities contain no pitting edema around the ankles bilaterally and symmetrically. ABDOMEN: Shows a well-healed midline incision as well as a right lower transverse incision, both of which are from his time of colectomy and his temporary ostomy that he had. He also has a right upper quadrant subcostal incision that appears to be intact without any evidence of erythema, edema, discharge, or hernia. There is mild tenderness to palpation around the area of insertion of right-sided PTC. The right-sided PTCs connected to a bag and there is bilious output within it. Left-sided PTC is capped and the site of insertion is not particularly tender. There is no evidence of organomegaly, caput medusae, engorged subcutaneous veins, or ascites. There is no evidence of peritoneal signs or guarding. SKIN: Appears to be pink and feels warm to touch. NEUROLOGIC: Awake, alert, and follows commands appropriately. Results Result Diagram: 05/30/178 05/30/17 175 Medications Medications Current Medications Docusate Sodium (Colace) 100 mg Q12H PRN PO CONSTIPATION; Start 05/30/17 at 17: 30 Escitalopram Oxalate (Lexapro) 20 mg DAILY PO ; Start 05/31/17 at 09:00 Magnesium Hydroxide (Milk Of Mag) 30 ml DAILY PRN PO CONSTIPATION; Start at 17:30 Sodium Biphosphate/ Sodium Phosphate (Fleet Enema) 133 ml DAILY PRN [place] CONSTIPATION; Start 05/30/17 at 17:30 Nitroglycerin (Nitroglycerin (Sl Tab) 0.4 Mg) 1 tab Q5M PRN SL ANGINA; Start at 17:30 Pantoprazole 40 mg 40 mg DAILY@06 PO Last administered on 05/31/17 06:00; Admin Dose 40 MG; Start 05/31/17 at 06:00 Dextrose/Sodium Chloride (D5-1/2ns) 1,000 ml @ 60 mls/hr [id number] IV Last administered on 05/31/17 16:40; Admin Dose 60 MLS/HR; Start 05/31/17 at 00:00 Ondansetron HCl (Zofran Inj) 4 mg Q6H PRN IV NAUSEA AND/OR VOMITING; Start at 17:30 Hydromorphone HCl (Dilaudid) 0.5 mg Q4H PRN IV PAIN LEVEL 7-10 Last administered on 05/31/17 16:34; Admin Dose 0.5 MG; Start 05/30/17 at 17:30 Tramadol HCl (Ultram) 50 mg Q6H PRN PO Pain Last administered on 05/30/17 21: 32; Admin Dose 50 MG; Start 05/30/17 at 18:00 KIN ESTEBAN MD May 31, 2017 20:48
[2017-06-01] VITALS (8 sets, daily range): BP systolic 94–112; BP diastolic 52–63; PULSE 54–71; RESP 16–19
[2017-06-01] MEDS: PANTOPRAZOLE (EC) 40 MG TAB PO SCH (05:51)
[2017-06-01] MEDS: traMADol 50 MG TAB PO PRN (05:55)
[2017-06-01] MEDS: DEXTROSE 5%-0.45% NACL 1,000 ML IV SCH (05:56)
[2017-06-01] MEDS: ESCITALOPRAM 10 MG TAB PO SCH (09:08)
--- NOTE | 2017-06-01 09:55 | DS ---
Date/Time of Note Date/Time of Note DATE: 06/01/17 TIME: 09:53 Discharge Summary Admission/Discharge Info Admit Date/Time May 31, 2017 at 00:06 Discharge Date/Time Patient Condition: Stable Consults general surgery Procedures 7.14: cholangiogram done by IR PROCEDURE: Fluoroscopic guided internal external biliary drainage with stent placement and transhepatic cholangiogram. CLINICAL INDICATION: Biliary obstruction. Cholangiogram was performed. Contrast was injected into the existing biliary drainage catheter and digital images were obtained. The catheter is within the right intrahepatic bile duct. Contrast enters the bowel via a thin anastomosis. A left-sided internal external biliary drainage catheter is present in satisfactory position. Multiple surgical clips are present in the upper abdomen. 1% lidocaine was injected around the existing catheter. The catheter was removed over a 0.035 inch guidewire. A Kumpe catheter was then advanced over the guide wire, and the 0.035 inch Glidewire was then advanced through a stenotic lesion in the distal common bile duct and into the bowel. The Kumpe catheter was advanced over the guidewire, the guide wire was removed, and contrast was injected, opacifying the bowel. A new 10-Romansh internal external biliary drainage catheter was then advanced over the guide wire such that the distal pigtail was in the duodenum and side holes were present in the common bile duct and right intrahepatic bile ducts. The catheter was then secured to the patient's skin with 2-0 silk. The drainage catheter was then connected to a standard gravity drainage bag. Contrast was then injected into the left internal external biliary drainage catheter. FINDINGS: Final images demonstrate the right sided internal external biliary drainage catheter in satisfactory position. With contrast injected into the left-sided internal external biliary drainage catheter this is also noted in satisfactory position. IMPRESSION: 1. Satisfactory placement of right-sided internal external biliary drainage catheter. Hx of Present Illness This is an unfortunate 62-year-old male patient with past medical history metastatic lung carcinoma with metastasis to the liver and lymph nodes, status post cholecystectomy and excision of hepatic common bile duct with Rituxan Y hepaticojejunostomy on 01/24/2017. The patient was discharged from the [facility] after prolonged hospital stay on 05/04/2017 to a shelter facility. The patient is also status post placement of a left biliary drain on 04/09/2017 and a right biliary drain on 03/24/2017. The patient is being brought back to [facility] for exchange of the drains. Hospital Course Pt had cholangiogram with replacement of R sided drain 7.14 and began feeling better after procedure. Labs rechecked, WBCs improved. Pt felt much improved. No changes made from admit meds. Pt to f/u with treatment team as scheduled Home Meds Active Scripts Lidocaine (LIDOCAINE) 35.44 Gm Oint...g., 1 APPLIC TOP QID Y for PAIN for 30 Days Prov:DWIGHT NEAL MD 05/03/17 Pantoprazole* (Pantoprazole*) 40 Mg Tablet.dr, 40 MG PO DAILY@06 for 30 Days Prov:DWIGHT NEAL MD 05/03/17 Ondansetron Hcl* (Ondansetron Hcl* Inj) 4 Mg/2 Ml Vial, 4 MG IV Q6H Y for NAUSEA AND/OR VOMITING for 30 Days, VIAL Prov:DWIGHT NEAL MD 05/03/17 Na Phos,M-B/Na Phos,Di-Ba (James Ready To Use Enema) 133 Ml Enema, 133 ML ME DAILY Y for CONSTIPATION for 30 Days, ENEMA Prov:DWIGHT NEAL MD 05/03/17 Magnesium Hydroxide* (Hsieh' MOM*) 30 Ml Susp, 30 ML PO DAILY Y for CONSTIPATION for 30 Days Prov:DWIGHT NEAL MD 05/03/17 Docusate Sodium (Dok) 100 Mg Capsule, 100 MG PO Q12H Y for CONSTIPATION for 30 Days, CAP Prov:DWIGHT NEAL MD 05/03/17 Potassium Chloride* (K-Dur*) 10 Meq Tab.prt.sr, 10 MEQ PO BID@08,18 for 30 Days Prov:DWIGHT NEAL MD 05/03/17 Hydromorphone Hcl* (Dilaudid*) 2 Mg Tablet, 2 MG PO Q6H Y for PAIN for 30 Days, TAB Prov:DWIGHT NEAL MD 05/03/17 Escitalopram Oxalate* (Escitalopram Oxalate*) 10 Mg Tablet, 20 MG PO DAILY for 30 Days, TAB Prov:DWIGHT NEAL MD 05/03/17 Acetaminophen (MAPAP) 325 Mg Tablet, 650 MG PO Q6H Y for PAIN LEVEL 1-3 OR FEVER for 30 Days, TAB Prov:DWIGHT NEAL MD 05/03/17 Nitroglycerin* (Nitrostat*) 0.4 Mg Tab.subl, 1 TAB SL Q5M Y for ANGINA for 30 Days Prov:DWIGHT NEAL MD 05/03/17 Hydralazine Hcl* (Apresoline* Pediatric Oral) 1 Mg/Ml (Compounded) Oral Solution , 10 MG IV Q6H Y for ELEVATED BLOOD PRESSURE for 30 Days Prov:DWIGHT NEAL MD 05/03/17 Ipratropium-Albuterol (Ipratropium-Albuterol) 0.5-3 Mg/3 Ml Ampul.neb, 3 ML HHN Q4H RESP THERAPY Y for SHORTNESS OF BREATH for 30 Days Prov:DWIGHT NEAL MD 05/03/17 Nystatin (Nystatin) 100,000 Unit/1 Ml Oral.susp, 5 ML PO QID for 30 Days Prov:DWIGHT NEAL MD 05/03/17 Reported Medications Escitalopram Oxalate* (Lexapro*) 10 Mg Tablet, 10 MG PO DAILY, #30 TAB 03/30/17 Follow-up Plan pt to return to SNF and f/u with consultants as previously scheduled Primary Care Provider Care Physician No Primary Time spent on discharge: > 30 minutes VALE CHANG MD Jun 01, 2017 09:55
[2017-06-01] MEDS: HYDROmorphONE 1 MG/ML SYG IV PRN ×2 (11:05→16:15)
[2017-06-01 12:06] LABS: ADD SCAN DIFF NO
[2017-06-01 12:32] LABS: BASOPHIL # 0.1 10^3/ul (0.0-0.1); BASOPHILS % 0.4 % (0.0-2.0); EOSINOPHILS # 0.3 10^3/ul (0.0-0.5); EOSINOPHILS % 2.1 % (0.0-7.0); HEMATOCRIT 34.1 % (42.0-52.0); HEMOGLOBIN 10.8 g/dl (14.0-18.0); LYMPHOCYTES # 1.2 10^3/ul (0.8-2.9); LYMPHOCYTES % 8.5 % (15.0-51.0); MEAN CORPUSCULAR HGB CONC 31.7 g/dl (32.0-37.0); MONOCYTE # 1.1 10^3/ul (0.3-0.9); MONOCYTES % 7.9 % (0.0-11.0); NEUTROPHILS % 80.7 % (39.0-77.0); RED BLOOD COUNT 3.48 10^6/ul (4.70-6.10); RED CELL DISTRIBUTION WIDTH 16.2 % (11.5-14.5); WHITE BLOOD COUNT 13.6 10^3/ul (4.8-10.8)
[2017-06-01 12:33] LABS: PLATELET COUNT 611 10^3/UL (140-415)
[2017-06-01 12:51] LABS: ALBUMIN 3.6 g/dl (3.3-4.9); ALBUMIN/GLOBULIN RATIO 0.83; BILIRUBIN,DIRECT 1.2 mg/dl (0.00-0.20); BILIRUBIN,TOTAL 2.2 mg/dl (0.2-1.3); CALCIUM 8.9 mg/dl (8.4-10.2); CREATININE 0.6 mg/dl (0.61-1.24); POTASSIUM 3.7 mmol/L (3.5-5.1); TOTAL PROTEIN 7.9 g/dl (6.1-8.1)
--- NOTE | 2017-06-01 16:07 | PN ---
Date/Time of Note Date/Time of Note DATE: 06/01/17 TIME: 16:06 Assessment/Plan Lines/Catheters IV Catheter Type (from Nrsg): Peripheral IV Assessment/Plan Assessment/Plan [facility] Progress Note Date of Service: 06/01/2017 Place of service: [facility] fifth floor surgical tower Today's Assessment & Plan: Overall stable and doing well. No further leakage reported from the right- sided PTC. He seems to have tolerated capping both tubes and at this time, it is okay from my standpoint to discharge with plans as outlined below. No indication for acute surgical intervention. Discussed with him at length and answered all questions. No family present in the room during my visit. With above assessment, I've recommended the following for today: 1. Okay to discharge home from my standpoint 2. I will ask my office to assist with the process of obtaining authorization for TACE as well as outpatient consultation 3. Follow-up with my office in 2-3 weeks Thank you again for your great care of this very pleasant patient and wonderful family. If there are any questions, please feel free to call me at [phone]. Nature of presenting problem: I severity Please note that, given the multiple number of diagnoses or management options, the moderate amount and/or complexity of data needed to be reviewed, and high risk of complications and/or morbidity or mortality, this qualifies as moderate complexity type of decision-making. Disclaimer: Inadvertent spelling and grammatical errors are likely due to EHR/ dictation software use and do not reflect on the quality of delivered patient care. Also, please note that the electronic time recorded on this node does not necessarily reflect the actual time of the visit. Updated clinical summary: A very pleasant 61-year-old gentleman with significant past medical history including ulcerative colitis status post total proctocolectomy and ileoanal pouch as well as a number of other medical issues who was diagnosed with cholangiocarcinoma and underwent a radical bile duct resection that included extrahepatic bile duct and gallbladder at [facility], 2016, with final diagnosis of cholangiocarcinoma with 1/8 lymph node positive disease as well as low-grade dysplasia and carcinoma in situ at the proximal margin. The patient was readmitted to [facility] after a 2 month hospital stay at [facility] with increasing weakness, jaundice, and diffuse body pain. S/p perc drainage of right biliary system 04/03/17. : s/p placement of left biliary drain which traverses patient's anastomosis on that side. Right system has a tight anastomosis that could not be traversed. R biliary drain upsized 04/12/17. L biliary drain capped . S/p B drain checks 04/30/17 (both open). D/c to SNF ([facility]) on 05/04/17. Readmitted to [facility] on 05/31/2017 for PTC checks and repositioning. COMORBIDITIES: 1. History of ulcerative colitis status post total proctocolectomy and ileoanal pouch. 2. Diagnosis of primary sclerosing cholangitis since 2008 being cared for at various institutions such as [facility] and by various physicians with involvement of Dr. Krystian Adkins for hepatology. 3. History of hospitalization at [facility] for bile duct obstruction from mid December to early March with bile duct excision with cholecystectomy with removal of extrahepatic bile duct and Isabell-en-Y hepaticojejunostomy on 07/2017 with the above-mentioned pathology. 4. Chronic back pain, mainly lower, for the last 5 to 6 years. 5. Significant weight loss of more than 20 to 30 pounds over the last 6 months. 6. No history of lymphoma (note that this was reported erroneously in the patient's chart. The patient does not report any history of lymphoma in the past and that is also corroborated by the patient's family). 7. Status post multiple ERCPs and stenting in the past since 2005. 8. Elevated alpha fetoprotein 1.8 in 12/2016. 9. Elevated CA19-9 of 272.9 in 12/2016. 10. Normal CEA at 1.6 on 01/14/2017. 11. Status post sigmoidoscopy, 01/16/2017, showing moderate pouchitis and negative for dysplasia or malignancy. 12. S/p perc drainage of right biliary system 04/03/17. 13. 04/09/17: s/p placement of left biliary drain which traverses patient's anastomosis on that side. Right system has a tight anastomosis that could not be traversed. 14. Compression fracture 04/10/17 Subjective: No major events or complaints; no abd pain and under control with medications; no n/v/d; no sob or cp; + flatus; + BM and normal; + activity; no further leakage reported around the right PTC Objective: Vitals: See below I's & O's: See below Exam: GENERAL: On exam, the patient was lying in bed and appeared to be comfortable and in no acute distress. ABDOMEN: Shows a well-healed midline incision as well as a right lower transverse incision, both of which are from his time of colectomy and his temporary ostomy that he had. He also has a right upper quadrant subcostal incision that appears to be intact without any evidence of erythema, edema, discharge, or hernia. There is mild tenderness to palpation around the area of insertion of right-sided PTC. The right-sided PTCs and left-sided PTC are both capped and the site of insertion is not particularly tender. There is no evidence of organomegaly, caput medusae, engorged subcutaneous veins, or ascites. There is no evidence of peritoneal signs or guarding. SKIN: Skin appears to be pink and feels warm to touch. NEUROLOGIC: Patient is awake, alert, and follows commands appropriately. Labs: See below Exam/Review of Systems Vital Signs Vitals Vital Signs Date Time Temp Pulse Resp B/P Pulse Ox O2 Delivery O2 Flow Rate FiO2 06/01/17 12:12 71 06/01/17 12:00 98.6 16 112/63 99 05/31/17 10:36 Room Air Intake and Output 05/31/17 05/31/17 06/01/17 15:00 23:00 07:00 Intake Total 600 ml 1380 ml 240 ml Output Total 2 ml 700 ml Balance 598 ml 680 ml 240 ml Results Result Diagram: 06/01/17 1127 06/01/17 1127 ZOE GOYAL M.D. Jun 01, 2017 16:07
--- NOTE | 2017-06-01 19:21 | CONS ---
Date/Time of Note Date/Time of Note DATE: 06/01/17 TIME: 14:20 Assessment/Plan Assessment/Plan Chief Complaint/Hosp Course Metastatic cholangiocarcinoma to lymph node. postop , NOW WITH Metastatic dis in the liver h/o crohns sp proctocolectomy and JPouch creation 2005, primary sclerosing cholangitis, stage 4 cholangioCa with mets to liver and LAD sp cholecystectomy and excision of hepatic CBD with renee-en-Y hepaticojejunostomy 3.17 complicated by biliary obstruction warranting bl biliary drain placement admitted for hyperbilirubinemia and concern for biliary drain malfunction. POST cholangiogram this AM during which R sided drain found to not be functioning optimally and was replaced. Chronic Crohn's disease status post total proctocolectomy with J-pouch creation 2005. Chronic primary sclerosing cholangitis w cholangiocarcinoma. Needs advanced care planning evaluated. Poor prognosis. Performance status questionable at this time for chemotherapy & bilirubin needs some improvement. Malnutrition; oral feeds/Megace vs TPN Failure to thrive, may need snf Anemia- MONITOR Reactive thrombocytosis Dyslipidemia. POOR PS Problems: Consultation Date/Type/Reason Admit Date/Time May 31, 2017 at 00:06 Initial Consult Date 05/31/17 Type of Consultation: [facility] Referring Provider: LINDA HOLLIS CREW LEADER Exam/Review of Systems Vital Signs Vitals Vital Signs Date Time Temp Pulse Resp B/P Pulse Ox O2 Delivery O2 Flow Rate FiO2 06/01/17 12:12 71 06/01/17 12:00 98.6 16 112/63 99 05/31/17 10:36 Room Air Intake and Output 05/31/17 05/31/17 06/01/17 15:00 23:00 07:00 Intake Total 600 ml 1380 ml 240 ml Output Total 2 ml 700 ml Balance 598 ml 680 ml 240 ml Results Result Diagram: 06/01/17 1127 06/01/17 1127 Results 24 hrs Laboratory Tests Test 06/01/17 11:27 White Blood Count 13.6 H Red Blood Count 3.48 L Hemoglobin 10.8 L Hematocrit 34.1 L Mean Corpuscular Volume 98.0 Mean Corpuscular Hemoglobin 31.0 Mean Corpuscular Hemoglobin Concent 31.7 L Red Cell Distribution Width 16.2 H Platelet Count 611 H Mean Platelet Volume 9.0 Neutrophils % 80.7 H Lymphocytes % 8.5 L Monocytes % 7.9 Eosinophils % 2.1 Basophils % 0.4 Nucleated Red Blood Cells % 0.0 Neutrophils # 11.0 H Lymphocytes # 1.2 Monocytes # 1.1 H Eosinophils # 0.3 Basophils # 0.1 Nucleated Red Blood Cells # 0.0 Sodium Level 138 Potassium Level 3.7 Chloride Level 98 Carbon Dioxide Level 28 Anion Gap 16 Blood Urea Nitrogen 8 Creatinine 0.60 L Glucose Level 104 Calcium Level 8.9 Total Bilirubin 2.2 H Direct Bilirubin 1.20 #H Indirect Bilirubin 1.0 Aspartate Amino Transf (AST/SGOT) 65 H Alanine Aminotransferase (ALT/SGPT) 47 Alkaline Phosphatase 514 H Total Protein 7.9 Albumin 3.6 Globulin 4.30 H Albumin/Globulin Ratio 0.83 KIN ESTEBAN MD Jun 01, 2017 19:20
== END 2017-06-01 17:10 | DRG 949 ==
LOC: MS4 05-30 13:45 → INTOOBSV 05-30 13:45 → OBSVTOIN 05-31 00:06
PROVIDERS: ADMIT Family Medicine; ATTEND Family Medicine
PROC: 0FPBX0Z Removal of Drainage Device from Hepatobiliary Duct, External Approach (ICD-10-PCS; 2017-05-31)
PROC: BF101ZZ Fluoroscopy of Bile Ducts using Low Osmolar Contrast (ICD-10-PCS; 2017-05-31)
PROC: 0F9930Z Drainage of Common Bile Duct with Drainage Device, Percutaneous Approach (ICD-10-PCS; principal; 2017-05-31 08:00)
DX: Z48.03 Encounter for change or removal of drains (principal); E43 Unspecified severe protein-calorie malnutrition; C77.9 Secondary and unspecified malignant neoplasm of lymph node, unspecified; C78.7 Secondary malignant neoplasm of liver and intrahepatic bile duct; C24.8 Malignant neoplasm of overlapping sites of biliary tract; M80.88XA Other osteoporosis with current pathological fracture, vertebra(e), initial encounter for fracture; Z68.1 Body mass index [BMI] 19.9 or less, adult; D63.8 Anemia in other chronic diseases classified elsewhere; F32.9 Major depressive disorder, single episode, unspecified; Z85.118 Personal history of other malignant neoplasm of bronchus and lung
CPT/HCPCS: 75982; 80053; 82150; 83605; 83690; 83735; 84100; 85025; 85610; 85730; G0378; J0690; J1170; J2250; J3010; J7042; Q9967